=== PATIENT | female | born 1960 | race Caucasian/White ===

== ENCOUNTER → 2018-01-12 16:35 | Outpatient (CLI) | payer MEDICAID, SELFPAY ==
[2018-01-12 18:26] LABS: ALB/GLOB Ratio 0.7 RATIO (0.9-2.4); AST(SGOT) 14 U/L (15-37); Alanine Aminotransfer ALT/SGPT 22 U/L (13-56); Albumin, Serum 3.3 g/dL (3.2-5.0); Alkaline Phosphatase 112 U/L (45-117); Anion Gap 8 (5-15); BUN 18 mg/dL (7-18); BUN/Creat Ratio 21.7 RATIO (10-20); Calcium,Total 9.6 mg/dL (8.5-10.1); Chloride 100 mmol/L (98-107); Creatinine, Serum 0.83 mg/dL (0.55-1.02); EST Glomerular Filtration Rate 75 mL/min (>60); Est Glom Filt Rate - Afr Amer 91 mL/min (>60); Glucose 105 mg/dL (74-106); Potassium 3.9 mmol/L (3.5-5.1); Protein, Total 8.3 g/dL (6.4-8.2); Sodium Level 140 mmol/L (136-145)
[2018-01-12 18:35] LABS: Absolute Lymphocyte Count 2.73 X10^3/ul (0.83-4.51); Absolute Neutrophil Count 10.2 X10^3/uL (2.0-7.7); Basophil# 0.05 X10^3/uL; Basophil% 0.3 % (0-1); Eosinophil# 0.08 X10^3/uL; Eosinophils% 0.6 % (0-5); Hematocrit 37.6 % (37-47); Hemoglobin 11.6 g/dl (12.0-15.0); Lymphocyte # 2.73 X10^3/ul (4.0); Lymphocyte % 18.9 % (19-41); Mean Corp Hgb Conc 30.9 g/gl (32-36); Mean Corpuscular Hgb 26.4 pg (27.0-32.0); Mean Corpuscular Volume 85.5 fL (81-99); Monocyte# 1.21 X10^3/uL; Monocyte% 8.4 % (0-10); Neutrophil # 10.21 X10^3/uL (2.7-7.7); Neutrophil % 70.8 % (47-70); Platelet Count 726 K/mm3 (150-450); RBC Distribution Width CV 15.8 % (11.6-14.6); RBC Distribution Width SD 48.6 fl (35.1-43.9); White Blood Count 14.4 K/mm3 (4.4-11.0)
[2018-01-12 18:53] LABS: POSITIVE COUNT NO; POSITIVE DIFFERENTIAL NO; POSITIVE MORPHOLOGY NO
[2018-01-12 19:30] LABS: Erythrocyte Sedimentation Rate 81 mm/hr (0-30)
== END ==
PROVIDERS: Family Provider Family Medicine; PCP Family Medicine
DX: M05.9 Rheumatoid arthritis with rheumatoid factor, unspecified (principal); Z79.52 Long term (current) use of systemic steroids; Z79.899 Other long term (current) drug therapy
CPT/HCPCS: 36415; 80053; 85025; 85652; 86140

== ENCOUNTER → 2018-04-18 15:57 | Outpatient (CLI) | payer MEDICAID, SELFPAY | PROVIDERS: Family Provider Family Medicine; PCP Family Medicine | DX: M05.9 Rheumatoid arthritis with rheumatoid factor, unspecified (principal); Z79.52 Long term (current) use of systemic steroids | CPT/HCPCS: 77080 ==

== ENCOUNTER 2018-05-19 04:48 | Observation (INO) | payer MEDICAID, SELFPAY ==
[2018-05-19] VITALS (14 sets, daily range): BP systolic 92–131; BP diastolic 63–80; PULSE 65–114; RESP 12–20; TEMP 36.8–37.1; O2SAT 94–98; BMI 36.0; BMI 36.2; BMI 36.3
--- NOTE | 2018-05-19 05:00 | RAD_ITS ---
STUDY: X-RAY CHEST REASON FOR EXAM: Female, 58 years old. Syncope TECHNIQUE: Frontal view COMPARISON: 08/03/2017 FINDINGS: The lungs are clear and expanded. There is no demonstrated pleural abnormality. Normal size heart. Normal mediastinum and taya. Normal visualized pulmonary arteries. Normal visualized aortic arch and descending thoracic aorta. Normal visualized thoracic spine. Normal visualized ribs, clavicles, and shoulders. There is no demonstrated abnormality of the visualized soft tissue structures of the upper abdomen. RAD/Chest 1 View (Portable) IMPRESSION: Normal x-ray examination of the chest. Electronically Signed: Jamir Weller MD at 6:18 EDT , Service support ,
--- NOTE | 2018-05-19 05:00 | RAD_ITS ---
STUDY: X-RAY - RIGHT ANKLE REASON FOR EXAM: Female, 58 years old. Pain TECHNIQUE: 3 view(s) of the ankle. COMPARISON: None. FINDINGS: There is a nondisplaced fracture of the distal fibula. The tibia is intact. Talus and calcaneus are intact. There is NO joint dislocation. There is generalized osteopenia. There is lateral soft tissue swelling. RAD/Ankle min 3 Views IMPRESSION: Nondisplaced fracture of the distal fibula. Electronically Signed: Jamir Weller MD at 6:15 EDT , Service support ,
--- NOTE | 2018-05-19 05:00 | EKG12_ITS ---
Test Reason : SYNCOPE Blood Pressure : / mmHG Vent. Rate : 094 BPM Atrial Rate : 094 BPM P-R Int : 134 ms QRS Dur : 076 ms QT Int : 364 ms P-R-T Axes : 029 010 062 degrees QTc Int : 455 ms Normal sinus rhythm Nonspecific ST and T wave abnormality Abnormal ECG Confirmed by RIVKA CRUZ, AIME ([id number]), science editor AMAN GIRALDO ([id number] on 05/22/2018 3:09:02 PM Referred By: DONAVAN Confirmed By:AIME TINEO MD
--- NOTE | 2018-05-19 05:00 | CT_ITS ---
STUDY: CT BRAIN WITHOUT CONTRAST REASON FOR EXAM: Female, 58 years old. Syncope RADIATION DOSAGE (If Supplied By Facility): CTDIvol = ( 44.99 ) mGy, DLP = ( 796.11 ) mGycm TECHNIQUE: Transaxial CT imaging of the brain was performed without administration of intravenous contrast material. Individualized dose optimization techniques were used for this CT. COMPARISON: None. FINDINGS: Normal soft tissue structures. Normal calvarium. Normal size ventricles and extra-axial spaces for the patient's age. Normal white matter tracts of the cerebral hemispheres. Normal basal ganglia and thalami. Normal brainstem. Normal cerebellum. There is no intracranial hemorrhage. There are no findings of an acute ischemic infarction. Normal visualized paranasal sinuses. CT/Brain/Head without Contrast IMPRESSION: Normal unenhanced CT scan of the brain. Electronically Signed: Jamir Weller MD at 7:18 EDT , Service support ,
[2018-05-19] MEDS: Ondansetron 4 MG/2 ML Vial IV (05:28)
[2018-05-19] MEDS: 0.9% Normal Saline 1,000 ML 1000 ML IV (05:28)
[2018-05-19] MEDS: Morphine 4 MG/ML Syringe IV (05:28)
[2018-05-19 05:52] LABS: BUN 17 mg/dL (7-18); Creatinine, Serum 1.03 mg/dL (0.55-1.02); Estimated Creatinine Clearance 46.51 ml/min; Glucose 129 mg/dL (74-106)
[2018-05-19 05:53] LABS: Anion Gap 12 (5-15); BUN/Creat Ratio 16.5 RATIO (10-20); Calcium,Total 9.2 mg/dL (8.5-10.1); Chloride 103 mmol/L (98-107); EST Glomerular Filtration Rate 58 mL/min (>60); Est Glom Filt Rate - Afr Amer 71 mL/min (>60); Potassium 3.9 mmol/L (3.5-5.1); Sodium Level 137 mmol/L (136-145)
[2018-05-19 06:23] LABS: Absolute Lymphocyte Count 3.34 X10^3/ul (0.83-4.51); Absolute Neutrophil Count 13.1 X10^3/uL (2.0-7.7); Basophil# 0.05 X10^3/uL; Basophil% 0.3 % (0-1); Eosinophil# 0.27 X10^3/uL; Eosinophils% 1.5 % (0-5); Hematocrit 36.3 % (37-47); Lymphocyte # 3.34 X10^3/ul (4.0); Lymphocyte % 18.6 % (19-41); Mean Corp Hgb Conc 30.3 g/gl (32-36); Mean Corpuscular Hgb 25.3 pg (27.0-32.0); Mean Corpuscular Volume 83.4 fL (81-99); Mean Platelet Vol. 8.7 fl (6.2-12.0); Monocyte# 1.08 X10^3/uL; Neutrophil # 13.06 X10^3/uL (2.7-7.7); Neutrophil % 72.8 % (47-70); Platelet Count 506 K/mm3 (150-450); RBC Distribution Width CV 15.6 % (11.6-14.6); RBC Distribution Width SD 47.8 fl (35.1-43.9); Red Blood Count 4.35 M/mm3 (4.2-5.4); White Blood Count 17.9 K/mm3 (4.4-11.0)
[2018-05-19 06:27] LABS: Differential Indicated SCAN CRITERIA MET; POSITIVE COUNT NO; POSITIVE DIFFERENTIAL NO; POSITIVE MORPHOLOGY YES
--- NOTE | 2018-05-19 06:54 | NURSING ---
HOSPITALIST RETURNED CALL.
--- NOTE | 2018-05-19 07:14 | NURSING ---
DR WESTON GO
--- NOTE | 2018-05-19 07:17 | NURSING ---
PCU SYNCOPE KORAM
--- NOTE | 2018-05-19 07:27 | NURSING ---
DR ONTIVEROS IN ER
--- NOTE | 2018-05-19 07:31 | ED.DCSUM_ITS ---
- ER Visit Summary Date of Service: 05/19/18 Chief Complaint: Syncope History of Present Illness: The patient is a 58 F with a syncopal episode. This occurred suddenly around 4 AM today. The patient has a history of rheumatoid arthritis and deconditioning. She has not been feeling well and she has not been taking her medications. Yesterday she slept most of the day. She slept poorly last night and woke up early. She got up, stood up and believe she passed out. She woke up on the floor. Reports right breast pain and right ankle pain. She also had some nausea and vomiting. Denies any history of this in the past. Denies any chest pain or shortness of breath. Denies headache, vision changes, focal weakness, focal numbness, or speech changes. Physical Examination: Heart rate 114. Otherwise vitals normal. Afebrile. Alert and oriented. No acute distress. Head and neck atraumatic. HEENT exam unremarkable. Neck is nontender. Heart regular. Lungs clear bilaterally. Abdomen soft and nontender. Extremities unremarkable except for right ankle tenderness at the lateral malleolus. She is neurovascular intact distally. No focal or lateralizing neurologic abnormalities grossly. Cranial nerves grossly intact. Skin slightly pale Test Results: EKG showed sinus rhythm at a rate of 94. Nonspecific ST and T- wave changes. White count 17.9, hemoglobin 11, platelets 506. Glucose 129 and creatinine 1.03. Troponin normal. Chest x-ray was normal. CT brain was normal. Ankle x-ray showed a right distal fibula fracture. Emergency Department Course and Treatment: Patient seen immediately. Placed on a monitor. Orthostatics were negative, but her blood pressures were around 99 systolic. She received IV fluids. She also received morphine and Zofran for her symptoms. White count is elevated. She does take prednisone. She has a history of leukocytosis. Hemoglobin is stable. Platelets are elevated, but she has a history of this. Troponin and EKG showed no acute abnormalities. He does have some nonspecific ST and T-wave changes. Nothing to explain syncope. No dysrhythmias. Ankle fracture was splinted by me. She tolerated this well. Neurovascularly intact distally afterwards. Patient continues to have borderline hypotension. She feels unwell. I do not have an explanation for her syncope. She will have even more trouble getting around since she will be nonweightbearing on the right lower leg. I asked the hospitalist to admit for inpatient care. Treatment Plan: As above Disposition: Admission Impression: 1. Syncope 2. Right distal fibula fracture This note was generated with [employer] dictation software. It may contain incorrect words, spelling, and punctuation that were not noted in review of the chart prior to signing ED Disposition - Plan for ED Patient: Chief Complaint: Syncope Referrals: Duane Odom MD [Primary Care Provider] -
[2018-05-19] MEDS: 0.9% NaCl Peripheral Flush Adult/Peds IV ×2 (09:17→10:17)
[2018-05-19] MEDS: 0.9% Normal Saline 1,000 ML 125 ML IV ×2 (09:17→19:23)
[2018-05-19] MEDS: Ketorolac 15 MG/ML Vial IV (10:16)
[2018-05-19] MEDS: Enoxaparin 40 MG/0.4 ML Syringe SC (10:19)
[2018-05-19] MEDS: predniSONE 10 MG Tablet PO (10:19)
[2018-05-19] MEDS: Metoprolol Tartrate 25 MG Tablet PO ×2 (10:19→22:00)
[2018-05-19] MEDS: Aspirin 81 MG TAB.CHEW PO (10:19)
--- NOTE | 2018-05-19 10:26 | MRI_ITS ---
STUDY: MRI BRAIN WITHOUT CONTRAST REASON FOR EXAM: Female, 58 years old. Syncope X 2 TODAY TECHNIQUE: Standardized multiplanar fat and water weighted pulse sequences were obtained. COMPARISON: May 19, 2018 FINDINGS: Normal size of the ventricles and extra-axial spaces for the patient's age. There are a limited number of small white matter hyperintensities, distributed throughout the deep white matter tracts of the cerebral hemispheres, consistent with minimal chronic white matter ischemic changes. Normal bilateral basal ganglia. Normal thalami. There is no extra-axial fluid accumulation. Normal flow voids within the major intracranial circulation suggesting patency by spin echo criteria. Normal sella turcica, pituitary gland, infundibular stalk, optic chiasm and hypothalamus. Normal tectal plate and pineal gland. Normal midbrain, david and medulla. Normal cerebellum. Normal basal cisterns. Normal bilateral temporal bones. Normal bilateral internal auditory canals. No demonstrated orbital abnormality, within the constraints of a routine brain study. There is mild mucosal thickening of the ethmoid sinus. . Normal calvarium and skull base. Normal visualized soft tissue structures. Normal visualized upper cervical spine. MRI/Brain without Contrast IMPRESSION: There is minimal small vessel ischemic white matter disease. There is mild paranasal sinusitis. Electronically Signed: Beth Martin MD at 14:25 EDT , Service support ,
--- NOTE | 2018-05-19 10:28 | HP.PCM_ITS ---
Problem List (1) Syncope Status: Acute Qualifiers: Syncope type: unspecified Qualified Code(s): R55 - Syncope and collapse History of Present Illness Date of Admission: 05/19/18 Chief Complaint: syncope The patient is a 58 year old F with a history of rheumatoid arthritis and hypertension. She presents to the ED early this morning with a complaint of a syncopal episode. According to patient she recently had a flareup of her rheumatoid arthritis and so had been feeling very weak and lethargic. She got up around 4 AM today to go to the kitchen and felt very weak and as he was heading to a chair she blacked out she does not know how long she was out for Sheila just remembers coming round and calling for her daughter to help her. She denied any antecedent lightheadedness or dizziness no palpitations. When the daughter came to help her out patient states that she blacked out again and had generalized jerking movements according to her daughter. She denies any history of seizure disorder and denies any urinary or fecal incontinence or tongue biting. She denies any post syncopal confusion and lethargy. She therefore came into the ED. Vitals in the ED showed heart rate of 114 vitals otherwise normal. EKG showed sinus rhythm with rate of [address] and T-wave changes. White cell count was elevated at 17.9 but this may be due to the fact the patient is on prednisone. She was started on IV fluids and received morphine and Zofran. CT head done was negative. Troponins were also negative. Ankle x-ray showed a right distal fibula fracture was placed in a splint in the ED.. She has been admitted to be managed for syncopal episode [] Past Medical History Allergies No Known Allergies Allergy (Verified 05/19/18 04:49) Home Medications: Ambulatory Orders Medication Instructions Recorded Aspirin [Aspirin, Baby] 81 mg PO DAILY@0800 05/19/18 Metoprolol Tartrate 25 mg PO BID 05/19/18 Mirtazapine [Remeron] 30 mg PO QHS PRN 05/19/18 Omeprazole [Prilosec] 20 mg PO DAILY 05/19/18 Prednisone 10 mg PO DAILY 05/19/18 Surgical History: - - Stents placed due to acute MA in 2016 in [place]. 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 Denies: Chills, Fever Eyes: Denies: Blurred vision HEENT: Denies: Head Aches, Sinus Congestion, Sinus Drainage Cardiovascular: Reports: Syncope. Denies: Chest Pain, Chest Pressure, Chest Tightness, Heaviness, Light Headedness, Orthopnea, Palpitations, Paroxysmal Noc. Dyspnea Respiratory: Denies: Cough, Shortness of Breath, Shortness of breath at rest, Sputum production Gastrointestinal: Denies: Abdominal Pain, Nausea, Vomiting Genitourinary: Denies: Dysuria Musculoskeletal: Reports: - - right ankle pain. Denies: Joint Pain, Joint Tenderness Skin: Denies: Rash, Wounds Neurological: Denies: Numbness, Tingling, Focal weakness Psychiatric: Denies: Anxiety, Depression, Homicidal Ideations, Suicidal Ideations Hematologic/ Lymphatic: Denies: Easy Bruising, Easy Bleeding VTE Information - Inpt Only VTE Present on Admission: No VTE Mechan Device Prophylaxis: None VTE Pharm Prophylaxis ordered?: Yes Patient Problems: Active and Suspected Problems Syncope (Acute) - Physical Exam General: Alert, Oriented x3, Cooperative, No apparent distress HEENT: Atraumatic, PERRLA, EOMI, Normocephalic Oral: Moist Mucosa Neck: Supple, No JVD, Negative Carotid Bruits Lungs: Clear to auscultation, Normal air movement, No rhonchi, No wheeze, No rales Cardiovascular: Regular rate, Regular Rhythm, Normal S1, Normal S2, No murmurs Abdomen: Bowel Sounds Present, Soft, Non Tender, Non-Distended, No Hepato- splenomegaly Extremities: No clubbing, No cyanosis, No edema, Capillary Refill Less than 3 Seconds Skin: No rashes, No breakdown Musculoskeletal: - - RLE in splint. Neurological: Cranial nerves II-XII grossly intact, Neuro grossly intact Psych/Mental Status: Normal Affect, Appropriate, Alert and oriented to time, place, person, mood and affect Vital Signs Temp Pulse Resp BP Pulse Ox 98.5 F 104 H 16 131/72 H 98 05/19/18 08:00 05/19/18 10:19 05/19/18 08:00 05/19/18 08:00 05/19/18 08:00 Oxygen Delivery Method Room Air Weight: 198 lb 3.129 oz Body Mass Index (BMI) 36.2 Laboratory Tests Past 24 Hrs 05/19/18 09:10 Troponin I < 0.015 Diagnostic Data Ankle X-Ray 05/19/18 05:00 IMPRESSION: Nondisplaced fracture of the distal fibula. Electronically Signed: Jamir Weller MD at 6:15 EDT , Service support , Brain CT 05/19/18 05:00 IMPRESSION: Normal unenhanced CT scan of the brain. Electronically Signed: Jamir Weller MD at 7:18 EDT , Service support , Chest X-Ray 05/19/18 05:00 IMPRESSION: Normal x-ray examination of the chest. Electronically Signed: Jamir Weller MD at 6:18 EDT , Service support , Laboratory Tests 05/19/18 05/19/18 05/19/18 05:25 05:55 09:10 WBC 17.9 H RBC 4.35 Hgb 11.0 L Hct 36.3 L MCV 83.4 MCH 25.3 L MCHC 30.3 L RDW 15.6 H RDW Differential 47.8 H Plt Count 506 H MPV 8.7 Immature Gran % (Auto) 0.800 Neut % (Auto) 72.8 H Lymph % (Auto) 18.6 L [place] % (Auto) 6.0 Eos % (Auto) 1.5 Baso % (Auto) 0.3 Absolute Neuts (auto) 13.1 H Absolute Lymphs (auto) 3.34 Total Counted Not Reportable Sodium 137 Potassium 3.9 Chloride 103 Carbon Dioxide 22.0 Anion Gap 12 BUN 17 Creatinine 1.03 H Estim Creat Clear Calc 46.51 Est GFR (MDRD) Af Amer 71 Est GFR (MDRD) Non-Af 58 L BUN/Creatinine Ratio 16.5 Glucose 129 H Calcium 9.2 Troponin I < 0.015 < 0.015 Assessment/Plan All Active Problems Syncope (Acute) 58 year female with a history of CAD status post stents, rheumatoid arthritis and hypertension presenting with a syncopal episode. 1. 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 Therefore cannot rule out a seizure as cause of syncope. * Does not have a history of seizures. * EKG showed nonspecific acute ST changes. Initial troponin was negative. * Admit to PCU with telemetry * neurology consult. CT head was negative for any acute intracranial pathology * Order MRI of the brain without contrast per neurology * Orthostatics was negative the patient was borderline hypotensive with systolic blood pressure in the 90s; will hydrate with IV fluids and monitor * Fall precautions * PT OT consulted * 2. Hypertension: * on metoprolol. BP was in the 90s systolic in the ED but at 130 systolic range of metoprolol. * We will continue to monitor. * 3.Rheumatoid arthritis * only on prednisone;says she has an ppointment to follow up wit her neurologist soon. * 4. Nondisplaced fracture of the right fibula * stable. Placed in splint by ED * tyelenol for pain * PT/OT consulted * fall precautions * 5. CAD s/p stents: had MA in [place] in 2016; says she had stents placed. On aspirin, but not on plavix. cannot say if she was on it and when she stopped. To followup with her PCP and her pcas on dc. GI prophylaxis: will start famotidine in light of her chronic steroid use DVT prophylaxis: PPI Code status: Full code * Counseled extensively about different types of CODE STATUS. Patient counseled about different between full code, DNR CCA and DNR CCA patient elects to be full code * This note was generated with [employer] dictation software. It may contain incorrect words, spelling, and punctuation that were not noted in checking the note before signing. Code Visit Inpatient E&M: 51058 Init Hosp L3 Procedures: 34758 Advncd Care Plan 30 Min
--- NOTE | 2018-05-19 11:19 | PCM.CONS.GEN ---
Problem List (1) Syncope Status: Acute Qualifiers: Syncope type: unspecified Qualified Code(s): R55 - Syncope and collapse Reason for Consult Date of Consultation: 05/19/18 Reason for Consultation: Syncope History of Present Illness: The patient is a 58 year old CF with PMH HTN, RA, CAD s/p stents admitted with syncope. Per patient she had RA flare yesterday and she was in the bed the whole day and slept, had not eaten much, she woke about 3:30 AM this morning (05/19/18), made coffee, fed her cat, bend over, became diaphoretic, dizzy and the next thing she remembers was walking up on the floor, denies any tongue bite, urinary incontinence or post event confusion, called for help, later when he daughter came, she fainted again, and she was told she was jerking at that time, per patient she may have fainted for few seconds to minute and again denies any tongue bite or urinary incontinence. Denies any BLOOM, visual disturbances, chest pain, fever, focal motor weakness or sensory loss. Per patient her BP medications were recently decreased by her primary care. She did complain of right ankle pain and was found to have nondisplaced fracture of right distal fibula. [] Past Medical History Allergies No Known Allergies Allergy (Verified 05/19/18 04:49) Home Medications: Ambulatory Orders Medication Instructions Recorded Aspirin [Aspirin, Baby] 81 mg PO DAILY@0800 05/19/18 Metoprolol Tartrate 25 mg PO BID 05/19/18 Prednisone 10 mg PO DAILY 05/19/18 Lives: With Family Smoking Status: Current every day smoker - smokes about 4 cigarettes/day Alcohol: None Drugs: None Review of Systems Constitutional: Reports: - - complete ROS negative except as documented in HPI Patient Problems: Active and Suspected Problems Syncope (Acute) - Physical Exam General: Alert HEENT: Normocephalic Neck: Supple Lungs: Normal air movement Cardiovascular: Normal S1, Normal S2 Abdomen: Bowel Sounds Present Extremities: No cyanosis Neurological: - - consious, alert, AoAx3, CN 2-12 grossly intact, power 5/5 all 4 extremities, no sensory loss, no cerebellar signs, Reflexes + B/L B/S/T/K/A, gait deferred. Psych/Mental Status: Normal Affect Vital Signs Temp Pulse Resp BP Pulse Ox 98.5 F 104 H 16 131/72 H 98 05/19/18 08:00 05/19/18 10:19 05/19/18 08:00 05/19/18 08:00 05/19/18 08:00 Oxygen Delivery Method Room Air Weight: 89.9 kg Body Mass Index (BMI) 36.2 Laboratory Tests Past 24 Hrs 05/19/18 09:10 Troponin I < 0.015 Assessment/Plan All Active Problems Syncope (Acute) The patient is a 58 year old CF with PMH HTN, RA, CAD s/p stents admitted with syncope. Per patient she had RA flare yesterday and she was in the bed the whole day and slept, had not eaten much, she woke about 3:30 AM this morning (05/19/18), made coffee, fed her cat, bend over, became diaphoretic, dizzy and the next thing she remembers was walking up on the floor, denies any tongue bite, urinary incontinence or post event confusion, called for help, later when he daughter came, she fainted again, and she was told she was jerking at that time, per patient she may have fainted for few seconds to minute and again denies any tongue bite or urinary incontinence. Denies any BLOOM, visual disturbances, chest pain, fever, focal motor weakness or sensory loss. Per patient her BP medications were recently decreased by her primary care. She did complain of right ankle pain and was found to have nondisplaced fracture of right distal fibula. Impression Likely Convulsive Syncope-? cause Plan -Check MRI brain w/o contrast -Check EEG -Check TTE -Recommend 30 day event recorder -Labs reviewed -Avoid tramadol -Seizure and fall precautions -Further management of medical management per primary team. -Is on Steroids for RA, presents with ankle fracture, further evaluation and management of osteoporosis per primary team -GI/DVT prophylaxis -Please call with questions if any -Thank you for allowing us to participate in patient's care and management I spent 60 minutes taking history, doing physical examination, reviewing medical records, coordinating care and counseling the patient. Code Visit Inpatient E&M: 96375 Init Hosp L3
--- NOTE | 2018-05-19 11:24 | CON.PCM_ITS ---
Problem List (1) Syncope Status: Acute Qualifiers: Syncope type: unspecified Qualified Code(s): R55 - Syncope and collapse Reason for Consult Date of Consultation: 05/19/18 Reason for Consultation: Syncope History of Present Illness: The patient is a 58 year old CF with PMH HTN, RA, CAD s/p stents admitted with syncope. Per patient she had RA flare yesterday and she was in the bed the whole day and slept, had not eaten much, she woke about 3:30 AM this morning (), made coffee, fed her cat, bend over, became diaphoretic, dizzy and the next thing she remembers was walking up on the floor, denies any tongue bite, urinary incontinence or post event confusion, called for help, later when he daughter came, she fainted again, and she was told she was jerking at that time , per patient she may have fainted for few seconds to minute and again denies any tongue bite or urinary incontinence. Denies any BLOOM, visual disturbances, chest pain, fever, focal motor weakness or sensory loss. Per patient her BP medications were recently decreased by her primary care. She did complain of right ankle pain and was found to have nondisplaced fracture of right distal fibula. [] Past Medical History Allergies No Known Allergies Allergy (Verified 05/19/18 04:49) Home Medications: Ambulatory Orders Medication Instructions Recorded Aspirin [Aspirin, Baby] 81 mg PO DAILY@0800 05/19/18 Metoprolol Tartrate 25 mg PO BID 05/19/18 Prednisone 10 mg PO DAILY 05/19/18 Lives: With Family Smoking Status: Current every day smoker - smokes about 4 cigarettes/day Alcohol: None Drugs: None Review of Systems Constitutional: Reports: - - complete ROS negative except as documented in HPI Patient Problems: Active and Suspected Problems Syncope (Acute) - Physical Exam General: Alert HEENT: Normocephalic Neck: Supple Lungs: Normal air movement Cardiovascular: Normal S1, Normal S2 Abdomen: Bowel Sounds Present Extremities: No cyanosis Neurological: - - consious, alert, AoAx3, CN 2-12 grossly intact, power 5/5 all 4 extremities, no sensory loss, no cerebellar signs, Reflexes + B/L B/S/T/K/A, gait deferred. Psych/Mental Status: Normal Affect Vital Signs Temp Pulse Resp BP Pulse Ox 98.5 F 104 H 16 131/72 H 98 05/19/18 08:00 05/19/18 10:19 05/19/18 08:00 05/19/18 08:00 05/19/18 08:00 Oxygen Delivery Method Room Air Weight: 89.9 kg Body Mass Index (BMI) 36.2 Laboratory Tests Past 24 Hrs 05/19/18 09:10 Troponin I < 0.015 Assessment/Plan All Active Problems Syncope (Acute) The patient is a 58 year old CF with PMH HTN, RA, CAD s/p stents admitted with syncope. Per patient she had RA flare yesterday and she was in the bed the whole day and slept, had not eaten much, she woke about 3:30 AM this morning (), made coffee, fed her cat, bend over, became diaphoretic, dizzy and the next thing she remembers was walking up on the floor, denies any tongue bite, urinary incontinence or post event confusion, called for help, later when he daughter came, she fainted again, and she was told she was jerking at that time , per patient she may have fainted for few seconds to minute and again denies any tongue bite or urinary incontinence. Denies any BLOOM, visual disturbances, chest pain, fever, focal motor weakness or sensory loss. Per patient her BP medications were recently decreased by her primary care. She did complain of right ankle pain and was found to have nondisplaced fracture of right distal fibula. Impression Likely Convulsive Syncope-? cause Plan -Check MRI brain w/o contrast -Check EEG -Check TTE -Recommend 30 day event recorder -Labs reviewed -Avoid tramadol -Seizure and fall precautions -Further management of medical management per primary team. -Is on Steroids for RA, presents with ankle fracture, further evaluation and management of osteoporosis per primary team -GI/DVT prophylaxis -Please call with questions if any -Thank you for allowing us to participate in patient's care and management I spent 60 minutes taking history, doing physical examination, reviewing medical records, coordinating care and counseling the patient. Code Visit Inpatient E&M: 74753 Init Hosp L3
--- NOTE | 2018-05-19 12:01 | CASEMGMT ---
Face to Face with patient for initial transition planning/care coordination assessment. RN HENRIETTA introduced self and role at [facility], pt voices understanding and consents to assessment at this time. Pt is lying in bed in no distress at this time. Pt is A/Ox4 at this time and answers all questions appropriately at this time. Care providers, pharmacy, and demographics verified. See attached link. Pt voices no further concerns/needs at this time. Advised pt to ask for CM if any further questions/concerns/needs arise, voices understanding. CM to follow for any further discharge planning/needs. PLAN: [place]
--- NOTE | 2018-05-19 14:26 | EEG ---
- Electroencephalogram Date of service 05/19/2018 History EEG is being done in this 58 yr F to rule out seizures EEG Description: This is an 18 channel EEG with 10-20 lead placement system. Bipolar montages, Referential and Circumferential montages were reviewed. Photic stimulation and Hyperventilation were performed. The posterior dominant rhythm is 8 HZ synchronous, symmetric, reacting to eye opening and closing. Photo stimulation elicited normal driving response but no abnormal photoparoxysmal response, Hyperventilation did not elicit any abnormal photoparoxysmal response. Sleep was identified. There is no abnormal background slowing noted. There was no epileptiform discharges or electrographic seizures noted during this recording. EKG artefact noted during the record. High amplitude waves noted during the record. EEG Interpretation This is a normal awake and asleep EEG. There is no epileptiform discharges or electrographic seizures noted during the record.
--- NOTE | 2018-05-19 15:51 | ECHOD_ITS ---
Reason For Study: Palpitations Procedure This was a 2D Doppler, Color Flow transthoracic echocardiogram. Exam performed portable in patient room. Left Ventricle Normal LV size. Left ventricular systolic function is normal. The estimated ejection fraction is 60 %. Stage 1 diastolic dysfunction. No regional wall motion abnormalities noted. Right Ventricle Normal RV size. Normal systolic function. Atria Normal left atrium. Normal right atrium. Mitral Valve Normal mitral valve. Trivial eccentric mitral valve insufficiency. Tricuspid Valve Normal tricuspid valve. Aortic Valve Normal aortic valve. Pulmonic Valve Normal pulmonic valve. Great Vessels Normal aortic root. The pulmonary artery is normal size. Normal inferior vena cava. Pericardium/Pleural No pericardial effusion. MMode/2D Measurements & Calculations LVIDd: 4.3 cm IVSd: 0.91 cm Ao root diam: 2.9 cm LVIDs: 2.5 cm LVPWd: 1.2 cm LA dimension: 3.2 cm RVDd: 2.9 cm FS: 42.1 % LAV(MOD-bp): 54.0 ml LA A4 area: 15.8 cm2 RA A4 area: 10.1 cm2 LAV(MOD-bp) Indexed: 28.4 ml/m2 LAV(MOD-sp2): 75.4 ml LAV(MOD-sp4): 37.8 ml Doppler Measurements & Calculations MV E max arian: 75.8 cm/sec Lat Peak E' Arian: 8.5 cm/sec Med Peak E' Arian: 6.7 cm/sec MV A max arian: 104.2 cm/sec E/E' lat: 9.0 E/E' med: 11.3 MV E/A: 0.73 Ao V2 max: 169.0 cm/sec LV V1 max: 118.3 cm/sec PA V2 max: 101.5 cm/sec Ao max P.4 mmHg LV V1 max P.6 mmHg Interpretation Summary Normal LV size. Left ventricular systolic function is normal. The estimated ejection fraction is 60 %. Stage 1 diastolic dysfunction. Structurally normal valves. Ordering Physician: Sally Sellers Referring Physician: Dimitry Odom MD Performed By: Jo Ann Stanton RDCS
[2018-05-19] MEDS: Acetaminophen 325 MG Tablet 650 MG PO ×2 (17:34→23:46)
[2018-05-19] MEDS: Mirtazapine 30 MG Tablet PO (22:04)
[2018-05-20] VITALS (11 sets, daily range): BP systolic 142–163; BP diastolic 76–92; PULSE 39–80; RESP 15–20; TEMP 36.8–37.2; O2SAT 94–99
[2018-05-20 06:39] LABS: Absolute Lymphocyte Count 2.69 X10^3/ul (0.83-4.51); Absolute Neutrophil Count 5.2 X10^3/uL (2.0-7.7); Basophil# 0.04 X10^3/uL; Basophil% 0.4 % (0-1); Eosinophil# 0.21 X10^3/uL; Eosinophils% 2.3 % (0-5); Hematocrit 30.2 % (37-47); Hemoglobin 9.1 g/dl (12.0-15.0); Lymphocyte # 2.69 X10^3/ul (4.0); Lymphocyte % 29.8 % (19-41); Mean Corp Hgb Conc 30.1 g/gl (32-36); Mean Corpuscular Hgb 25.7 pg (27.0-32.0); Mean Corpuscular Volume 85.3 fL (81-99); Mean Platelet Vol. 9.5 fl (6.2-12.0); Monocyte# 0.81 X10^3/uL; Neutrophil # 5.19 X10^3/uL (2.7-7.7); Neutrophil % 57.6 % (47-70); Platelet Count 435 K/mm3 (150-450); RBC Distribution Width CV 15.4 % (11.6-14.6); RBC Distribution Width SD 46.4 fl (35.1-43.9); Red Blood Count 3.54 M/mm3 (4.2-5.4)
[2018-05-20 06:47] LABS: POSITIVE COUNT NO; POSITIVE DIFFERENTIAL NO; POSITIVE MORPHOLOGY NO
[2018-05-20] MEDS: Acetaminophen 325 MG Tablet 650 MG PO ×2 (06:49→13:34)
[2018-05-20 07:01] LABS: BUN 17 mg/dL (7-18); Creatinine, Serum 0.69 mg/dL (0.55-1.02); Glucose 81 mg/dL (74-106)
[2018-05-20 07:02] LABS: Anion Gap 8 (5-15); BUN/Creat Ratio 24.6 RATIO (10-20); Calcium,Total 8.5 mg/dL (8.5-10.1); Chloride 111 mmol/L (98-107); EST Glomerular Filtration Rate 92 mL/min (>60); Est Glom Filt Rate - Afr Amer 112 mL/min (>60); Estimated Creatinine Clearance 69.43 ml/min; Potassium 3.7 mmol/L (3.5-5.1); Sodium Level 147 mmol/L (136-145)
[2018-05-20] MEDS: Aspirin 81 MG TAB.CHEW PO (10:10)
[2018-05-20] MEDS: predniSONE 10 MG Tablet PO (10:10)
[2018-05-20] MEDS: Metoprolol Tartrate 25 MG Tablet PO (10:10)
[2018-05-20] MEDS: Enoxaparin 40 MG/0.4 ML Syringe SC (10:11)
[2018-05-20] MEDS: Pantoprazole Sodium 20 MG Tablet PO (10:11)
--- NOTE | 2018-05-20 15:10 | DCINST_ITS ---
- Discharge Diagnoses Current Active Problems: Current Active and Chronic Problems Syncope (Acute) You will use the following diet at home:: Cardiac Discharge Activity: Return to Normal Activity Call your doctor if you observe: Shortness of breath, Dizziness, Fainting spells , Chest pain Allergies/Adverse Reactions: Allergies No Known Allergies Allergy (Verified 05/19/18 04:49) Medications to take at Discharge Aspirin [Aspirin, Baby] 81 mg PO DAILY@0800 05/19/18 Metoprolol Tartrate 25 mg PO BID 05/19/18 Mirtazapine [Remeron] 30 mg PO QHS PRN 05/19/18 Omeprazole [Prilosec] 20 mg PO DAILY 05/19/18 Prednisone 10 mg PO DAILY 05/19/18 Oxycodone [Oxyir] 5 mg PO Q4H PRN PRN 2 Days #10 tablet 05/20/18 The following prescriptions were given: Oxycodone [Oxyir] 5 mg PO Q4H PRN PRN 2 Days #10 tablet PRN Reason: Pain Primary Care Physician: Duane Odom MD [Primary Care Provider] - Please follow up with your Primary Care Physician in: 3-5 Days Test Results: Test results from this visit will be discussed in further detail at your follow- up appointment, if applicable. Please Follow Up With: [facility] - [phone] When: Call tuesday for appointment Please Follow Up With: Isaac Hinton MD When: As needed Proposed Discharge Date: 05/20/18
--- NOTE | 2018-05-20 15:11 | PCM.DC.SUM ---
<Malathi Donaldson - Last Filed: 05/20/18 15:24> Discharge Date and Diagnosis Date of Admission: 05/19/18 Date of Discharge: 05/20/18 - Primary Discharge Diagnosis Active and Suspected Problems 1. Syncopal episode, unclear etiology 2. Acute kidney injury 3. Nondisplaced fracture of the right fibula 4. Hypertension 5. Rheumatoid arthritis 6. CAD status post stents 7. GERD Hospital Course and Treatment Imaging Results: Diagnostic Data Ankle X-Ray 05/19/18 05:00 IMPRESSION: Nondisplaced fracture of the distal fibula. Electronically Signed: Jamir Weller MD at 6:15 EDT , Service support , Brain CT 05/19/18 05:00 IMPRESSION: Normal unenhanced CT scan of the brain. Electronically Signed: Jamir Weller MD at 7:18 EDT , Service support , Chest X-Ray 05/19/18 05:00 IMPRESSION: Normal x-ray examination of the chest. Electronically Signed: Jamir Weller MD at 6:18 EDT , Service support , Brain MRI 05/19/18 10:26 IMPRESSION: There is minimal small vessel ischemic white matter disease. There is mild paranasal sinusitis. Electronically Signed: Beth Martin MD at 14:25 EDT cf, Service support , Dr. Hinton- Neurology Operations: None Procedures: 2-D Echocardiogram, Electroencephalogram Summary of Care Provided: The patient is a 58 year old F admitted 05/19/2018 due to syncopal episode. She has a past medical history of rheumatoid arthritis, CAD status post stents, GERD, hypertension. Syncopal episode with unclear etiology. Troponin negative. EKG without ST-T changes. No arrhythmia on telemetry. Echocardiogram showed an EF of 60%, stage I diastolic dysfunction, structurally normal valves. Orthostatic vitals negative. EEG unremarkable. Patient noted to have acute kidney injury which resolved with IV fluids. Suspect mild dehydration. Patient fell due to syncope prior to admission resulting in nondisplaced fracture of the right fibula. Placed in splint by ED. Patient will follow up with [facility] as outpatient. Discharged with OxyIR 5 mg every 4 hours as needed for pain. She was given only 2 days of as needed pain medication with plans for further follow-up with primary care physician and ortho. Patient will be discharged with 30 day event monitor to further assess for arrhythmia etiology of syncopal episode. Neurology evaluated during admission. If patient has recurrent episodes with reports of jerking movements, may follow-up with neurology for further evaluation. MRI of brain without acute process. Patient stable for discharge home with follow-up with primary care physician, orthopedics. Recommend initiation of osteoporosis protective regimen given long-term use of steroids by PCP. Also recommend referral to local cardiology given reported history of CAD. General: Alert, Oriented x3, Cooperative, No apparent distress HEENT: Atraumatic, PERRLA, EOMI, Normocephalic Oral: Moist Mucosa Neck: Supple, No JVD, Negative Carotid Bruits Lungs: Clear to auscultation, Normal air movement, No rhonchi, No wheeze, No rales Cardiovascular: Regular rate, Regular Rhythm, Normal S1, Normal S2, No murmurs Abdomen: Bowel Sounds Present, Soft, Non Tender, Non-Distended, No Hepato-splenomegaly Extremities: No clubbing, No cyanosis, No edema, Capillary Refill Less than 3 Seconds Skin: No rashes, No breakdown Musculoskeletal: Right lower extremity and splint Neurological: Cranial nerves II-XII grossly intact, Neuro grossly intact Psych/Mental Status: Normal Affect, Appropriate Patient seen exam prior to discharge. Physical assessment as noted above. Patient stable for discharge home with the follow-up recommendations as noted above. This patient was seen by COLT Genao under the supervision of Dr. Goldstein. Discharge Diet: Low fat/ Low Cholesterol Discharge Activity: Return to Normal Activity Call your doctor if you observe: Shortness of breath, Dizziness, Fainting spells, Chest pain Home Medications: Medications to take at Discharge Aspirin [Aspirin, Baby] 81 mg PO DAILY@0800 05/19/18 Metoprolol Tartrate 25 mg PO BID 05/19/18 Mirtazapine [Remeron] 30 mg PO QHS PRN 05/19/18 Omeprazole [Prilosec] 20 mg PO DAILY 05/19/18 Prednisone 10 mg PO DAILY 05/19/18 Oxycodone [Oxyir] 5 mg PO Q4H PRN PRN 2 Days #10 tablet 05/20/18 Following Prescrptions Were Given to Patient: Oxycodone [Oxyir] 5 mg PO Q4H PRN PRN 2 Days #10 tablet PRN Reason: Pain Other Amb Orders: 30-Day Event Recorder [[facility]] Time Frame: 2 Days, Location: None Selected Primary Care Physician: Duane Odom MD [Primary Care Provider] - Please follow up with your Primary Care Physician in: 3-5 Days Please Follow Up With: [facility] - [phone] When: Call tuesday for appointment Please Follow Up With: Isaac Hinton MD When: As needed Disposition: Home Minutes spent on discharge:: 35 Patient Condition:: Stable Medical Necessity - Tobacco Use Smoking Status: Current every day smoker Meaningful Use Info Meaningful Use Diagnoses (Choose all that apply): None applicable <Salvador Goldstein - Last Filed: 05/21/18 08:00> Hospital Course and Treatment Summary of Care Provided: The patient is a 58 year old F [] Discharge Summary Summary: Patient admitted for vasovagal syncope and suffered ankle fracture from fall Reviewed independently of REFIN[employer] OPERATOR [employer] and case discussed as well All work up negative Stable for discharge home
--- NOTE | 2018-05-20 15:23 | DS.PCM_ITS ---
<Malathi Donaldson - Last Filed: 05/20/18 15:24> Discharge Date and Diagnosis Date of Admission: 05/19/18 Date of Discharge: 05/20/18 - Primary Discharge Diagnosis Active and Suspected Problems 1. Syncopal episode, unclear etiology 2. Acute kidney injury 3. Nondisplaced fracture of the right fibula 4. Hypertension 5. Rheumatoid arthritis 6. CAD status post stents 7. GERD Hospital Course and Treatment Imaging Results: Diagnostic Data Ankle X-Ray 05/19/18 05:00 IMPRESSION: Nondisplaced fracture of the distal fibula. Electronically Signed: Jamir Weller MD at 6:15 EDT , Service support , Brain CT 05/19/18 05:00 IMPRESSION: Normal unenhanced CT scan of the brain. Electronically Signed: Jamir Weller MD at 7:18 EDT , Service support , Chest X-Ray 05/19/18 05:00 IMPRESSION: Normal x-ray examination of the chest. Electronically Signed: Jamir Weller MD at 6:18 EDT , Service support , Brain MRI 05/19/18 10:26 IMPRESSION: There is minimal small vessel ischemic white matter disease. There is mild paranasal sinusitis. Electronically Signed: Beth Martin MD at 14:25 EDT cf, Service support , Dr. Hinton- Neurology Operations: None Procedures: 2-D Echocardiogram, Electroencephalogram Summary of Care Provided: The patient is a 58 year old F admitted 05/19/2018 due to syncopal episode. She has a past medical history of rheumatoid arthritis, CAD status post stents, GERD , hypertension. Syncopal episode with unclear etiology. Troponin negative. EKG without ST-T changes. No arrhythmia on telemetry. Echocardiogram showed an EF of 60%, stage I diastolic dysfunction, structurally normal valves. Orthostatic vitals negative. EEG unremarkable. Patient noted to have acute kidney injury which resolved with IV fluids. Suspect mild dehydration. Patient fell due to syncope prior to admission resulting in nondisplaced fracture of the right fibula. Placed in splint by ED. Patient will follow up with [facility] as outpatient. Discharged with OxyIR 5 mg every 4 hours as needed for pain. She was given only 2 days of as needed pain medication with plans for further follow-up with primary care physician and ortho. Patient will be discharged with 30 day event monitor to further assess for arrhythmia etiology of syncopal episode. Neurology evaluated during admission. If patient has recurrent episodes with reports of jerking movements , may follow-up with neurology for further evaluation. MRI of brain without acute process. Patient stable for discharge home with follow-up with primary care physician, orthopedics. Recommend initiation of osteoporosis protective regimen given long-term use of steroids by PCP. Also recommend referral to local cardiology given reported history of CAD. General: Alert, Oriented x3, Cooperative, No apparent distress HEENT: Atraumatic, PERRLA, EOMI, Normocephalic Oral: Moist Mucosa Neck: Supple, No JVD, Negative Carotid Bruits Lungs: Clear to auscultation, Normal air movement, No rhonchi, No wheeze, No rales Cardiovascular: Regular rate, Regular Rhythm, Normal S1, Normal S2, No murmurs Abdomen: Bowel Sounds Present, Soft, Non Tender, Non-Distended, No Hepato- splenomegaly Extremities: No clubbing, No cyanosis, No edema, Capillary Refill Less than 3 Seconds Skin: No rashes, No breakdown Musculoskeletal: Right lower extremity and splint Neurological: Cranial nerves II-XII grossly intact, Neuro grossly intact Psych/Mental Status: Normal Affect, Appropriate Patient seen exam prior to discharge. Physical assessment as noted above. Patient stable for discharge home with the follow-up recommendations as noted above. This patient was seen by COLT Genao under the supervision of Dr. Goldstein. Discharge Diet: Low fat/ Low Cholesterol Discharge Activity: Return to Normal Activity Call your doctor if you observe: Shortness of breath, Dizziness, Fainting spells , Chest pain Home Medications: Medications to take at Discharge Aspirin [Aspirin, Baby] 81 mg PO DAILY@0800 05/19/18 Metoprolol Tartrate 25 mg PO BID 05/19/18 Mirtazapine [Remeron] 30 mg PO QHS PRN 05/19/18 Omeprazole [Prilosec] 20 mg PO DAILY 05/19/18 Prednisone 10 mg PO DAILY 05/19/18 Oxycodone [Oxyir] 5 mg PO Q4H PRN PRN 2 Days #10 tablet 05/20/18 Following Prescrptions Were Given to Patient: Oxycodone [Oxyir] 5 mg PO Q4H PRN PRN 2 Days #10 tablet PRN Reason: Pain Other Amb Orders: 30-Day Event Recorder [[facility]] Time Frame: 2 Days, Location: None Selected Primary Care Physician: Duane Odom MD [Primary Care Provider] - Please follow up with your Primary Care Physician in: 3-5 Days Please Follow Up With: [facility] - [phone] When: Call tuesday for appointment Please Follow Up With: Isaac Hinton MD When: As needed Disposition: Home Minutes spent on discharge:: 35 Patient Condition:: Stable Medical Necessity - Tobacco Use Smoking Status: Current every day smoker Meaningful Use Info Meaningful Use Diagnoses (Choose all that apply): None applicable <Salvador Goldstein - Last Filed: 05/21/18 08:00> Hospital Course and Treatment Summary of Care Provided: The patient is a 58 year old F [] Discharge Summary Summary: Patient admitted for vasovagal syncope and suffered ankle fracture from fall Reviewed independently of PADDING MACHINE OPERATOR and case discussed as well All work up negative Stable for discharge home
--- NOTE | 2018-05-20 16:00 | NURSING ---
Discussed warning signs of circulatory problems to RLE and to return to ED if symptoms develop. Discussed need for even monitor and to call hospital on Tuesday to schedule same. Patient informed of new pain medication and side effects of drug. Denies questions when asked.
== END 2018-05-20 17:50 | disposition home or self-care (01) ==
LOC: ED 05:03 → PCU 07:32
PROVIDERS: Admitting Provider Student in an Organized Health Care Education/Training Program; Emergency Provider Emergency Medicine; Family Provider Family Medicine; PCP Family Medicine; Visit Provider Internal Medicine
DX: R55 Syncope and collapse (principal); M06.9 Rheumatoid arthritis, unspecified; R11.2 Nausea with vomiting, unspecified; N17.9 Acute kidney failure, unspecified; I10 Essential (primary) hypertension; I25.10 Atherosclerotic heart disease of native coronary artery without angina pectoris; K21.9 Gastro-esophageal reflux disease without esophagitis; Z95.5 Presence of coronary angioplasty implant and graft; S82.831A Other fracture of upper and lower end of right fibula, initial encounter for closed fracture; W19.XXXA Unspecified fall, initial encounter; Y93.9 Activity, unspecified; Y92.9 Unspecified place or not applicable; Z79.82 Long term (current) use of aspirin; Z79.899 Other long term (current) drug therapy; Z79.52 Long term (current) use of systemic steroids; F17.200 Nicotine dependence, unspecified, uncomplicated
CPT/HCPCS: 29515; 36415; 70450; 70551; 71045; 73610; 80048; 84484; 85025; 93005; 93306; 95819; 96361; 96372; 96374; 96375; 99218; 99285; J7030; A4216; G0378; J2405

== ENCOUNTER → 2018-06-01 11:52 | Outpatient (CLI) | payer MEDICAID, SELFPAY ==
--- NOTE | 2018-06-01 11:58 | RAD_ITS ---
STUDY: X-RAY - RIGHT ANKLE REASON FOR EXAM: Female, 58 years old. Pain and swelling TECHNIQUE: 3 view(s) of the ankle. COMPARISON: None. FINDINGS: There is an acute nondisplaced fracture in the distal fibula with soft tissue swelling best seen on the oblique film. Normal visualized distal tibia. Normal medial and lateral malleoli. Normal tibiotalar articulation and ankle mortise. Normal visualized talus and calcaneus. The visualized subtalar, talonavicular, calcaneocuboid and tarsal articulations are normal. The soft tissue structures are unremarkable. RAD/Ankle min 3 Views IMPRESSION: Acute nondisplaced fracture in the distal fibula with soft tissue swelling Electronically Signed: Mauricio Olivia MD at 10:16 EDT , Service support ,
--- NOTE | 2018-06-01 11:58 | RAD_ITS ---
STUDY: X-RAY - RIGHT FOOT CLINICAL: Female, 58 years old. Pain and swelling TECHNIQUE: 3 view(s) of the foot. COMPARISON: None. FINDINGS: There are acute nondisplaced, multi fragmented, osteochondral fractures at the bases of the third and fourth metatarsals. There is also a suggestion of a nondisplaced fracture at the base of the second metatarsal. There is diffuse soft tissue swelling. Joint spaces well-maintained.. The lateral film shows lucency in the distal fibula suggestive also of a fracture. RAD/Foot min 3 Views IMPRESSION: Acute multi fragmented nondisplaced osteochondral fractures at the bases of the third and fourth metatarsals with soft tissue I suspect there is also a nondisplaced fracture at the base of the second metatarsal but this is seen only on the AP film. Joint spaces well-preserved Distal fibular fracture also suspected Electronically Signed: Mauricio Olivia MD at 10:14 EDT , Service support ,
[2018-06-01 14:26] LABS: Absolute Lymphocyte Count 3.18 X10^3/ul (0.83-4.51); Absolute Neutrophil Count 8.3 X10^3/uL (2.0-7.7); Basophil# 0.05 X10^3/uL; Basophil% 0.4 % (0-1); Eosinophil# 0.15 X10^3/uL; Eosinophils% 1.2 % (0-5); Hematocrit 34.8 % (37-47); Hemoglobin 10.4 g/dl (12.0-15.0); Immature Platelet Fraction 0.7 % (1.0-7.9); Lymphocyte # 3.18 X10^3/ul (4.0); Lymphocyte % 24.9 % (19-41); Mean Corp Hgb Conc 29.9 g/gl (32-36); Mean Corpuscular Hgb 25.4 pg (27.0-32.0); Mean Corpuscular Volume 84.9 fL (81-99); Mean Platelet Vol. 9.1 fl (6.2-12.0); Monocyte# 0.94 X10^3/uL; Monocyte% 7.4 % (0-10); Neutrophil # 8.34 X10^3/uL (2.7-7.7); Neutrophil % 65.2 % (47-70); Platelet Count 753 K/mm3 (150-450); RBC Distribution Width SD 49.5 fl (35.1-43.9); RET-HE 21.1 pg (30-35); Reticulocyte Count 2.43 % (0.5-1.5); White Blood Count 12.8 K/mm3 (4.4-11.0)
[2018-06-01 14:29] LABS: Differential Indicated SCAN CRITERIA MET; POSITIVE COUNT YES; POSITIVE DIFFERENTIAL NO; POSITIVE MORPHOLOGY NO
[2018-06-01 14:45] LABS: Ferritin 21 ng/mL (8-252); Iron 38 ug/dL (50-170); Iron Binding Capacity,Total 399 ug/dL (250-450)
[2018-06-01 15:05] LABS: Platelet Estimate MKD INC (ADEQ)
[2018-06-02 15:05] LABS: Pathologist Review Reviewed
== END ==
PROVIDERS: Family Provider Family Medicine; PCP Family Medicine; Referring Provider Family Medicine; Visit Provider Family Medicine
DX: M79.671 Pain in right foot (principal); S82.409A Unspecified fracture of shaft of unspecified fibula, initial encounter for closed fracture; D64.9 Anemia, unspecified
CPT/HCPCS: 36415; 73610; 73630; 82728; 83540; 83550; 85025; 85045

== ENCOUNTER → 2018-09-14 16:50 | Outpatient (CLI) | payer MEDICAID, SELFPAY ==
[2018-05-19 08:00] VITALS: BMI 36.2
[2018-09-14 17:36] LABS: Absolute Lymphocyte Count 2.42 X10^3/ul (0.83-4.51); Absolute Neutrophil Count 7.4 X10^3/uL (2.0-7.7); Basophil# 0.03 X10^3/uL; Basophil% 0.3 % (0-1); Eosinophil# 0.09 X10^3/uL; Eosinophils% 0.9 % (0-5); Hematocrit 34.8 % (37-47); Hemoglobin 10.3 g/dl (12.0-15.0); Immature Platelet Fraction 1.7 % (1.0-7.9); Lymphocyte # 2.42 X10^3/ul (4.0); Lymphocyte % 22.9 % (19-41); Mean Corp Hgb Conc 29.6 g/gl (32-36); Mean Corpuscular Hgb 24.6 pg (27.0-32.0); Mean Corpuscular Volume 83.1 fL (81-99); Mean Platelet Vol. 9.3 fl (6.2-12.0); Monocyte# 0.55 X10^3/uL; Monocyte% 5.2 % (0-10); Neutrophil % 69.9 % (47-70); Platelet Count 554 K/mm3 (150-450); RBC Distribution Width CV 17.3 % (11.6-14.6); RBC Distribution Width SD 51.8 fl (35.1-43.9); RET-HE 27.5 pg (30-35); Red Blood Count 4.19 M/mm3 (4.2-5.4); Reticulocyte Count 1.62 % (0.5-1.5); White Blood Count 10.6 K/mm3 (4.4-11.0)
[2018-09-14 17:42] LABS: POSITIVE COUNT NO; POSITIVE DIFFERENTIAL NO; POSITIVE MORPHOLOGY NO
[2018-09-14 18:04] LABS: Vitamin D,25 Hydroxy 41.2 ng/mL (29.95-100.01)
[2018-09-14 18:05] LABS: ALB/GLOB Ratio 0.8 RATIO (0.9-2.4); AST(SGOT) 10 U/L (15-37); Alanine Aminotransfer ALT/SGPT 20 U/L (13-56); Albumin, Serum 3.6 g/dL (3.2-5.0); Alkaline Phosphatase 108 U/L (45-117); Anion Gap 8 (5-15); BUN 22 mg/dL (7-18); BUN/Creat Ratio 27.1 RATIO (10-20); Calcium,Total 9.1 mg/dL (8.5-10.1); Chloride 101 mmol/L (98-107); Creatinine, Serum 0.81 mg/dL (0.55-1.02); EST Glomerular Filtration Rate 77 mL/min (>60); Est Glom Filt Rate - Afr Amer 93 mL/min (>60); Ferritin 12 ng/mL (8-252); Globulin 4.5 g/dL (2.2-4.2); Glucose 100 mg/dL (74-106); Iron 36 ug/dL (50-170); Iron Binding Capacity,Total 437 ug/dL (250-450); Potassium 4.2 mmol/L (3.5-5.1); Protein, Total 8.1 g/dL (6.4-8.2); Sodium Level 136 mmol/L (136-145)
== END ==
PROVIDERS: Family Provider Family Medicine; PCP Family Medicine; Referring Provider Family Medicine; Visit Provider Family Medicine
DX: M06.9 Rheumatoid arthritis, unspecified (principal); D64.9 Anemia, unspecified
CPT/HCPCS: 36415; 80053; 82306; 82728; 83540; 83550; 85025; 85045

== ENCOUNTER 2018-09-15 15:30 | Outpatient (RCR) | payer MEDICAID, SELFPAY ==
--- NOTE | 2018-08-17 16:30 | HP.PTEVAL_ITS ---
Patient's Visit Information FRANCIE MORENO is a 58 year old F referred to Physical Therapy by ROMULO OBANDO with a diagnosis of CHRONIC PAIN IN BOTH KNEES,RHEUMTOID ARTHRITIS. Date of Evaluation: 08/17/18 Physical Therapist: Chetan Poole, PT, Cert MDT, OCS - Visit Plan Frequency: 2-3x /Week Duration: 6 Weeks Plan: GRADED AQUATIC PT FOR ROM,STRENGTH BLE LE ,GENERAL CONDTIONING - Subjective Findings: This 58 y/o female presents to physical therapy with chronic pain ,fibromyalgia and Reumatoid arthritis . Patient has had chronic pain bilateral knees ,RA for about 2 years. Patient pain presisted over 2 years . Patient family MD did blood work found RA . Patient moved to [place] diagnosis with fibromyalgia. Patient seen pain manageserafin Chung. Pain is located in knees and wrist right L-S. Patient rollator for gait. Patient has w/c when has flare -ups. Patieny has fatigue flare-ups. Patient is Independant with ADLS' and dressing.Patient has tub shower with seat with grap bars. Patient can help with cleaning but has family and friends to assist. Denies parathesia/tingling. Patient has difficulty sleeping at night.Patient had x-rays knee and drained knee due to edema. Patient condition with pain affects QOL and function. SOCIAL: lives with daughter and son. VOCATION: disiblity - Pain Bilateral Knee Pain Intensity (Out of 10): 10 Pain Intensity Range: 10 Bilateral Back Pain Intensity (Out of 10): 10 Pain Intensity Range: 10 Comment: sacrum with staning Right Wrist Pain Intensity (Out of 10): 4 Pain Intensity Range: 10 - Objective POSTURE: mild foward posture. GAIT: foward posture trunk slow geo slow geo. EDEMA : joint line right 43 cm,left 48 cme. AROM: 20-120 degrees bilateral supine knee flexion. MMT: quads/hams 3+/5 ,hip flexion 4-/5 ,abduction 3+/5,ankle 4-/5. BALANCE: fair with fww - Goals Goal 1:: Independant with Aquatic PT Goal Time Frame: 4-6 Weeks Goal 2:: Patient to ambaulte with rollator community distance with improved quality of gait Goal Time Frame: 4-6 Weeks Goal 3:: Patient decrease knee pain by 40% or greater to improve function with ADL'S and function. Goal Time Frame: 4-6 Weeks Goal 4:: Patient to improve strength of quads/hams 4-/5 to i mprove gait Goal Time Frame: 4-6 Weeks Goal 5:: Patient to improve LFES score by 10-15 points to improve QOL Goal Time Frame: 4-6 Weeks - Rehabilitation Potential Physical Therapy Diagnosis: Patient has mutiple comormidities along with RA ,fibromalgia that impairs patient function with pain ,ROM loss,decrease strength,gait and ADL'S. Patient requires a rollator with gait and ocassionally uses w/c thus will benifit from skilled Aquatic PT Rehabilitation Potential: Fair - Anticipated Interventions Patient/Client Instruction: Educate patient on: Condition, Plan of Care For the Purpose of:: To decrease pain, To increase ROM, To improve muscle performance and motor function, To increase tolerance to activity/condition/position, To improve performance and independence with ADL's, To improve ability of physical actions for home/community/work/leisure, To improve gait and locomotor functions, To improve endurance, To improve balance, To improve safety with gait, To assume or resume ADL's, To improve health and function, To improve ability to perform tasks related to life management Therapeutic Exercise to Include: Strength training, Body mechanics, Postural training, Flexibilty training, In an aquatic setting, Active ROM Comment: BLE For the Purpose of:: To decrease pain, To decrease swelling/inflammation, To increase ROM, To improve muscle performance and motor function, To improve ability to perform ADL's, To increase tolerance to activity/condition/position, To improve ability of physical actions for home/community/work/leisure, To improve health of tissue, To decrease soft tissue restriction, To increase flexibility/ROM, To improve endurance, To improve balance, To improve safety with gait, To assume or resume ADL's, To improve ability to perform tasks related to life management Thank you for the opportunity to evaluate your patient. For Medicare and Medicare HMO plans, please review the plan of care and approve it. It will need to be FAXED BACK to us at [phone] for Medicare purposes. For Medicare only, by signing this I certify the plan of care. Please let me know if there are questions or concerns regarding this plan of care. Physician Signature: Date:____
--- NOTE | 2018-12-12 10:28 | HP.PTDCNRP_ITS ---
HP - Discharge Summary (1) - Patient Information FRANCIE MORENO was seen in my office for initial evaluation on 08/17/18. The following Plan of Care was established for this patient: Initial Frequency: 2-3x /Week Initial Duration: 6 Weeks - Anticipated Interventions Patient/Client Instruction: Educate patient on: Condition, Plan of Care For the Purpose of:: To decrease pain, To increase ROM, To improve muscle perfo rmance and motor function, To increase tolerance to activity/condition/position, To improve performance and independence with ADL's, To improve ability of physical actions for home/community/work/leisure, To improve gait and locomotor functions, To improve endurance, To improve balance, To improve safety with gait, To assume or resume ADL's, To improve health and function, To improve ability to perform tasks related to life management Therapeutic Exercise to Include: Strength training, Body mechanics, Postural training, Flexibilty training, In an aquatic setting, Active ROM For the Purpose of:: To decrease pain, To decrease swelling/inflammation, To increase ROM, To improve muscle performance and motor function, To improve ability to perform ADL's, To increase tolerance to activity/condition/position, To improve ability of physical actions for home/community/work/leisure, To improve health of tissue, To decrease soft tissue restriction, To increase flexibility/ROM, To improve endurance, To improve balance, To improve safety with gait, To assume or resume ADL's, To improve ability to perform tasks related to life management This patient was last seen in our office 09/15/08. Pertinent comments regarding their Physical therapy will appear below: Patient was seen in PT for chronic knee pain and RA for Aquatic PT focusing on ROM ,strength,endurance,thus is d/c . At this point I will be discontinuing this patient from physical therapy. I would be happy to see this patient again in the future if found appropriate by the physician. Thank you! Chetan Poole, PT, Cert MDT, OCS
== END 2018-09-15 19:00 | disposition home or self-care (01) ==
LOC: PT 15:30
PROVIDERS: Family Provider Family Medicine; PCP Family Medicine
DX: M25.561 Pain in right knee (principal); M25.562 Pain in left knee; G89.29 Other chronic pain; M79.7 Fibromyalgia; M06.9 Rheumatoid arthritis, unspecified
CPT/HCPCS: 97113; 97163

== ENCOUNTER → 2018-11-16 15:48 | Outpatient (CLI) | payer MEDICARE, MEDICAID, SELFPAY ==
[2018-05-19 08:00] VITALS: BMI 36.2
== END ==
PROVIDERS: Family Provider Family Medicine; PCP Family Medicine; Referring Provider Family Medicine; Visit Provider Family Medicine
DX: R32 Unspecified urinary incontinence (principal)
CPT/HCPCS: 87086; 87088

== ENCOUNTER → 2018-12-25 | Outpatient (CLI) | payer MEDICARE, MEDICAID, SELFPAY | END | disposition home or self-care (01) | LOC: LABSPEC 16:43 | PROVIDERS: Family Provider Family Medicine; PCP Family Medicine; Visit Provider Family Medicine | DX: R30.0 Dysuria (principal) | CPT/HCPCS: 87086; 87088; 87186 ==

== ENCOUNTER 2019-04-12 11:30 | Outpatient (RCR) | payer MEDICARE, MEDICAID, SELFPAY ==
--- NOTE | 2019-03-30 12:44 | HP.PTEVAL ---
Patient's Visit Information FRANCIE MORENO is a 59 year old F referred to Physical Therapy by ALFREDO SU with a diagnosis of B knee Pain, RA. Date of Evaluation: 03/30/19 Physical Therapist: Saad Llanos DPT - Visit Plan Frequency: 2x /Week Duration: 4-6 Weeks Plan: Start with BLE strengthenig, ROM, general mobility and functional strengthenign in aquatic setting. - Subjective Findings: Pt. is here today for her initial evaluatuon with diagnosis of RA and chronic bilateral knee pain. Pt. reports having increased B knee for years. She reports having decreased symptoms with medications, but contiunes to have overall increased B KNee and some low back pain. Patient has w/c when has flare -ups. Patient has fatigue flare-ups. Patient is Independant with ADLS' and dressing.Patient has tub shower with seat with grab bars. Patient can help with cleaning but has family and friends to assist. Denies parathesia/tingling. Patient has difficulty sleeping at night.Patient had x-rays knee and drained knee due to edema. SOCIAL: lives with daughter and son. VOCATION: disiblity. Pt. had good success with aquatic therapy previously and would like to continue again. - Pain B knees Pain Intensity (Out of 10): 4 Pain Intensity Range: 2, 6 - Objective POSTURE: mild foward posture. Pt. stands with lack of TKE in stance. GAIT: foward posture trunk slow geo slow geo. PT. lacks TKE during stance phase of gait. Pt. decreased step length bilaterally. EDEMA : joint line right 41 cm,left 44 cm. AROM: 20-120 degrees bilateral supine knee flexion. MMT: quads/hams 3+/5 ,hip flexion 4-/5 ,abduction 3+/5,ankle 4-/5. bilaterally. BALANCE: fair with fww, decreased stability without AD - Goals Goal 1:: Pt. to be I with HEP. Goal Time Frame: 4-6 Weeks Goal 2:: Pt. to have increased B kne extension ROM to lacking less than 10deg bilaterally. Goal Time Frame: 4-6 Weeks Goal 3:: Pt. to have incerased BLE strength by 1/2 grade of all effected musculature. Goal Time Frame: 4-6 Weeks Goal 4:: Pt. to ambualte with rollator with improved gait pattern 500+ft. allowing for increased community mobility. Goal Time Frame: 4-6 Weeks Goal 5:: Pt. to sleep throughout the night without increase in symptoms. Goal Time Frame: 4-6 Weeks - Rehabilitation Potential Physical Therapy Diagnosis: Pt. has signs and symptosm consistent with B knee pain and RA. PT. would benefit from PT in aquatic setting. Pt. has decreased ROM of bilateral knees especially into extension, she has difficulty with walkinga nd icnreased pain with all mobility. Pt. would benefit from PT in aquatic setting to address above limiations priogressing functional mobility on land. Rehabilitation Potential: Fair - Anticipated Interventions Patient/Client Instruction: Educate patient on: Condition, Plan of Care, Risk Factors, Benefits of Fitness Program For the Purpose of:: To improve decision making, To facilitate caregiver knowledge, To improve self management, To prevent re-injury, To improve ability to perform tasks related to life management Therapeutic Exercise to Include: Strength training, Power training, Endurance training, Balance training, Postural training, Flexibilty training, In an aquatic setting, Passive ROM, Active ROM, Dynamic Lumbar Stabilization For the Purpose of:: To decrease pain, To decrease swelling/inflammation, To increase ROM, To improve nutrient delivery to tissue, To increase oxygenation perfusion, To improve muscle performance and motor function, To decrease level of supervision to perform tasks, To improve ability of physical actions for home/community/work/leisure, To improve gait and locomotor functions, To improve health of tissue, To decrease soft tissue restriction, To increase flexibility/ROM, To improve endurance, To improve balance Thank you for the opportunity to evaluate your patient. For Medicare and Medicare HMO plans, please review the plan of care and approve it. It will need to be FAXED BACK to us at [phone] for Medicare purposes. For Medicare only, by signing this I certify the plan of care. Please let me know if there are questions or concerns regarding this plan of care. Physician Signature: Date:
== END 2019-04-12 19:00 | disposition home or self-care (01) ==
LOC: PT 11:30
PROVIDERS: Family Provider Family Medicine; PCP Family Medicine
DX: M25.561 Pain in right knee (principal); M25.562 Pain in left knee; G89.29 Other chronic pain
CPT/HCPCS: 97113; 97161

== ENCOUNTER → 2019-04-12 | Outpatient (CLI) | payer MEDICARE, MEDICAID, SELFPAY ==
[2018-05-19 08:00] VITALS: BMI 36.2
--- NOTE | 2019-04-12 17:06 | RAD_ITS ---
HISTORY:osteoarthritis osteoarthritis COMPARISON: None FINDINGS: # of images incl. paperwork: 4 XR Knee Complete 4 Views or More: Right BONE AND JOINTS: No acute fracture or subluxation. Medial greater than lateral joint space narrowing with marginal osteophytes and subchondral sclerosis. There is also patellofemoral joint space narrowing SOFT TISSUES: Minimal joint effusion No radiopaque foreign body. RAD/Knee 4 or More Views IMPRESSION: Osteoarthritis at 1808 Reported and signed by: Eli Hernández DO Electronically Signed: Eli Hernández DO at 18:07 EDT Tel , Service support ,
--- NOTE | 2019-04-12 17:06 | RAD_ITS ---
HISTORY:osteoarthritis osteoarthritis COMPARISON: None FINDINGS: # of images incl. paperwork: 4 XR Knee Complete 4 Views or More: Left BONE AND JOINTS: No acute fracture or subluxation. Medial greater than lateral joint space narrowing with marginal osteophytes. Spurring is seen at the medial femoral condyle which may be secondary to prior trauma. Patellofemoral joint space narrowing SOFT TISSUES: Minimal joint effusion No radiopaque foreign body. RAD/Knee 4 or More Views IMPRESSION: Osteoarthritis as discussed at 1828 Reported and signed by: Eli Hernández DO Electronically Signed: Eli Hernández DO at 18:27 EDT Tel , Service support ,
== END | disposition home or self-care (01) ==
LOC: MTRAD 17:05
PROVIDERS: Family Provider Family Medicine; PCP Family Medicine; Referring Provider Family Medicine; Visit Provider Family Medicine
DX: M17.0 Bilateral primary osteoarthritis of knee (principal)
CPT/HCPCS: 73564

== ENCOUNTER 2019-06-14 17:48 | Emergency (ER) | payer MEDICARE, SELFPAY ==
[2019-06-14 17:51] VITALS: BP 104/67; PULSE 114; RESP 17; TEMP 36.5; O2SAT 94; BMI 36.6
--- NOTE | 2019-06-14 18:13 | RAD_ITS ---
STUDY: X-RAY CHEST REASON FOR EXAM: Female, 59 years old. Syncope and chest pain TECHNIQUE: Single frontal view of the chest. COMPARISON: May 19, 2018 FINDINGS: The lungs are clear and expanded. There is no demonstrated pleural abnormality. Normal size heart. Normal mediastinum and taya. Normal visualized pulmonary arteries. Normal visualized aortic arch and descending thoracic aorta. Normal visualized thoracic spine. Normal visualized ribs, clavicles, and shoulders. There is no demonstrated abnormality of the visualized soft tissue structures of the upper abdomen. RAD/Chest 1 View (Portable) IMPRESSION: Normal x-ray examination of the chest. Electronically Signed: Tez Eller MD at 18:57 EDT , Service support ,
--- NOTE | 2019-06-14 18:13 | EKG12_ITS ---
Test Reason : Blood Pressure : / mmHG Vent. Rate : 074 BPM Atrial Rate : 074 BPM P-R Int : 146 ms QRS Dur : 094 ms QT Int : 430 ms P-R-T Axes : 032 011 049 degrees QTc Int : 477 ms Normal sinus rhythm Normal ECG Confirmed by ESA CRUZ, RAJNI ([id number]), content editor AMAN GIRALDO ([id number] on 06/20/2019 9:39:04 AM Referred By: Confirmed By:LEONELA SEE MD
--- NOTE | 2019-06-14 18:14 | CT_ITS ---
STUDY: CT BRAIN WITHOUT CONTRAST REASON FOR EXAM: Female, 59 years old. Syncope tonight and change in mental status RADIATION DOSAGE (If Supplied By Facility): CTDIvol = ( 44.99 ) mGy, DLP = ( 796.11 ) mGycm TECHNIQUE: Transaxial CT imaging of the brain was performed without administration of intravenous contrast material. Individualized dose optimization techniques were used for this CT. COMPARISON: MR brain May 19, [address] brain same day FINDINGS: Normal soft tissue structures. Normal calvarium. Normal size ventricles and extra-axial spaces for the patient's age. Normal white matter tracts of the cerebral hemispheres. Normal basal ganglia and thalami. Normal brainstem. Normal cerebellum. There is no intracranial hemorrhage. There are no findings of an acute ischemic infarction. Normal visualized paranasal sinuses. CT/Brain/Head without Contrast IMPRESSION: Normal unenhanced CT scan of the brain. Electronically Signed: Tez Eller MD at 19:46 EDT , Service support ,
--- NOTE | 2019-06-14 18:14 | ED.VIS.GEN ---
History of Present Illness Chief Complaint: Syncope Informant: Patient, Family Onset: Today Current Severity: Mild Narrative: Patient presents with family they complained that basically she was walking trying to go to family members football game when she felt very weak and tired she sat down and had a spell where she seemed to have some shakes she was not unconscious she says she indicates that basically she was extremely fatigued at that time. The patient has a history of cardiac stent 2016 related to [place], rheumatoid arthritis and osteoporosis her cardiovascular condition status has been very stable, she is had no chest pain fever cough abdominal pain. She indicates however she has had diffuse whole body pain despite the use of multiple medications for her rheumatoid arthritis, including IV medication infusing of a immune modulating medication she gets every month she last had that about 3 weeks ago she is scheduled to have recurrent infusion next week. Indicates despite using all of these immune medications for her rheumatoid she continues to have diffuse whole body pain she aches all over from her joints, she indicates she has disruption of her sleep cycle where she does not sleep at night because of the pain and then she sleeps during the day She continued to have whole body pain felt diffuse pain that she had all over, she indicates she wanted to make sure she could get to the football game as it was an important event she wanted to attend so she took 4-10 mg Flexeril tablets with the thought that would help her whole body pain and believes that contributed to the above, she also reports intermittent diarrhea that is better controlled but she is been able to eat and drink Past Medical History - Allergies and Home Meds Allergies/Adverse Reactions: Allergies No Known Allergies Allergy (Verified 06/14/19 17:51) Primary Care Physician: Duane Odom MD [Primary Care Provider] - Past Medical History: - - Fluids as above Surgical History: - - Stents placed due to acute [place] in 2016 in [place]. Smoking Status: Current every day smoker - Family History Maternal Family History: Family History (Last Updated 06/05/18 @ 10:55 by Nena Jordan) Mother Hypertension CVA (cerebral vascular accident) Sister Cancer Father Heart disease Family History: Reports: Heart Disease Review of Systems General: Reports: - - She indicates she is had months of whole body diffuse joint pain fatigue, sleep disturbance where she does not sleep at night tends to sleep during the day and diarrhea intermittently. Denies: Chills, Fever, Sweats Eyes: Denies: Visual changes - bilaterally, Diplopia ENT: Denies: Rhinorrhea, Sore throat Cardiovascular: Denies: Chest pain, Palpitations Respiratory: Denies: Dyspnea, Cough, Dyspnea on exertion Gastrointestinal: Denies: Abdominal pain, Nausea, Vomiting, Diarrhea, Melena, Hematochezia Genitourinary: Denies: Dysuria, Hematuria, Frequency Musculoskeletal: Denies: Back pain, Extremity Pain Skin: Denies: Rash, Wounds Neurological: Denies: Headache, Weakness, Numbness Physical Exam Vital Signs/Narrative: Vital Signs Temp Pulse Resp BP Pulse Ox 06/14/19 17:51 97.7 F L 114 H 17 104/67 94 General: Well nourished, Well developed, No Acute Distress Head: Normocephalic, Atraumatic Eyes: Perrl, EOMI ENT: Moist mucous membranes, No rhinorrhea Neck: Supple, Nontender Cardiovascular: Regular rate, Regular rhythm, No murmurs Respiratory: No distress, CTA bilaterally, Chest nontender Abdomen: Soft, Nontender, Nondistended, Normal bowel sounds Back: Nontender, Normal Inspection Extremities: Nontender, No edema Skin: Normal color, No rash Neurological: Alert, Oriented x3, Cranial nerves II-XII grossly intact, Normal Strength, Normal Sensation Psychological: Normal affect, Normal Mood Diagnostic/Tx/Re-eval - Medical Decision Making Given all the above the differential is rather extensive there is no signs at this time of an acute [place] seizures or anything life-threatening she is had this diffuse whole body pain weakness syndrome despite taking all of her medications today she took 4 10 mg Flexeril tablets and felt more shaky given all the above screening labs head CT IV fluids, I should mention at this time she is feeling back to her baseline just having the diffuse whole body pain that she is been having for months The patient's EKG shows a rate of about 74 no injury pattern QRS T durations are all unremarkable, the patient screening labs are also generally unremarkable her creatinine slightly elevated 1.49, she has received IV fluid boluses no troponin negative chest x-ray head CT negative Had a long conversation with her and the family discussed inpatient versus outpatient management she is feeling well prefers outpatient management declined admission she will take her medications as prescribed, there is no signs at this time of any type infectious complication electrolyte complication from the infusions that she is receiving and other meds she will take her Flexeril only as prescribed follow-up with her outpatient providers tomorrow and return for change in symptoms Home stable declined admission Final impression Whole-body pain, generalized fatigue, overmedication of Flexeril, history of rheumatoid arthritis and osteoporosis ED Disposition - Plan for ED Patient: Diagnosis: Syncope Instructions: SYNCOPE, Unk Cause Referrals: Duane Odom MD [Primary Care Provider] - Additional Instructions: Take all of your medications as prescribed, do not take any extra doses, notify your physicians that you are concerned that some of the medications and infusions you are receiving are making you fatigue or causing other symptoms
[2019-06-14 18:26] VITALS: PULSE 82; RESP 16; O2SAT 93
[2019-06-14 18:46] LABS: Absolute Lymphocyte Count 1.45 X10^3/uL (0.83-4.51); Absolute Neutrophil Count 9.8 X10^3/uL (2.0-7.7); Basophil# 0.09 X10^3/uL; Basophil% 0.7 % (0-1); Eosinophil# 0.11 X10^3/uL; Eosinophils% 0.9 % (0-5); Hematocrit 43.6 % (37-47); Hemoglobin 14.3 g/dL (12.0-15.0); Lymphocyte # 1.45 X10^3/ul (4.0); Mean Corp Hgb Conc 32.8 g/dL (32-36); Mean Corpuscular Hgb 30.1 pg (27.0-32.0); Mean Corpuscular Volume 91.8 fL (81-99); Mean Platelet Vol. 10.2 fl (6.2-12.0); Monocyte# 0.62 X10^3/uL; Monocyte% 5.1 % (0-10); NRBC Flagged by Analyzer 0 % (0-5); Neutrophil # 9.75 X10^3/uL (2.7-7.7); Neutrophil % 80.6 % (47-70); Platelet Count 312 K/mm3 (150-450); RBC Distribution Width CV 12.6 % (11.6-14.6); Red Blood Count 4.75 M/mm3 (4.2-5.4); White Blood Count 12.1 K/mm3 (4.4-11.0)
[2019-06-14 19:00] LABS: Anion Gap 7 (5-15); BUN 16 mg/dL (7-18); BUN/Creat Ratio 10.7 RATIO (10-20); Calcium,Total 9.4 mg/dL (8.5-10.1); Chloride 105 mmol/L (98-107); Creatinine, Serum 1.49 mg/dL (0.55-1.02); EST Glomerular Filtration Rate 38 mL/min (>60); Est Glom Filt Rate - Afr Amer 46 mL/min (>60); Estimated Creatinine Clearance 31.76 ml/min; Glucose 142 mg/dL (74-106); Magnesium 1.9 mg/dL (1.6-2.6); Potassium 3.4 mmol/L (3.5-5.1); Sodium Level 141 mmol/L (136-145)
[2019-06-14 19:53] LABS: BNP,B-Type NATRIURETIC PEPTIDE 36.7 pg/mL (0-100)
[2019-06-14 21:03] VITALS: BP 115/67; PULSE 66; RESP 16; O2SAT 94
== END 2019-06-14 21:07 | disposition home or self-care (01) ==
LOC: ED 18:28
PROVIDERS: Emergency Provider Emergency Medicine; Family Provider Family Medicine; PCP Family Medicine
DX: R55 Syncope and collapse (principal); R19.7 Diarrhea, unspecified; I25.2 Old myocardial infarction; M06.9 Rheumatoid arthritis, unspecified; M81.0 Age-related osteoporosis without current pathological fracture; Z95.5 Presence of coronary angioplasty implant and graft; Z79.82 Long term (current) use of aspirin; Z79.899 Other long term (current) drug therapy; F17.200 Nicotine dependence, unspecified, uncomplicated
CPT/HCPCS: 70450; 71045; 80048; 83735; 83880; 84484; 85025; 93005; 96360; 99284; J7040

== ENCOUNTER → 2020-06-10 17:51 | Outpatient (CLI) | payer MEDICARE, MEDICAID, SELFPAY ==
--- NOTE | 2020-06-10 18:15 | CT_ITS ---
STUDY: CT RIGHT LOWER EXTREMITY REASON FOR EXAM: Right knee osteoarthritis, surgical planning. TECHNIQUE: Transaxial CT imaging of the lower extremity was performed. Coronal and sagittal images were reformatted. Individualized dose optimization techniques were used for this CT. COMPARISON: Radiographs 04/12/2019. FINDINGS: Knee: There is severe joint space narrowing of the medial femorotibial compartment with marginal osteophytes and subchondral cystic change (coronal reconstructions 32-37). There is mild joint space narrowing and marginal osteophytes of the lateral femorotibial compartment (coronal reconstructions 29-31). There are marginal osteophytes, severe joint space narrowing and subchondral cystic change of the patellofemoral articulation (sagittal reconstructions 33-36). There is lateral tilt and lateral subluxation of the patella (axial image 318). There is arthrosis of the proximal tibiofibular articulation (coronal reconstruction 40). There is a joint effusion. The quadriceps tendon is grossly normal. The patellar tendon is grossly normal. Normal Hoffa''s fat pad. The soft tissues are unremarkable. Hip: There is mild joint space narrowing of the superior lateral right hip (coronal reconstruction 61). There is a bone island in the intertrochanteric femur (coronal reconstruction 61, 62). Ankle: There is a small osteochondral lesion of the anterior medial talar dome (coronal reconstruction 14; sagittal reconstruction 26). Normal posterior subtalar, talonavicular and calcaneocuboid articulations. There is a bone island in the dorsal aspect of the talar neck (sagittal reconstructions 23-25). CT/Extremity Lower without Contra IMPRESSION: Tricompartmental osteoarthritis of the right knee. Lateral tilt and lateral subluxation of the patella. Right knee joint effusion. Mild right hip arthrosis. Small osteochondral lesion of the medial talar dome. Electronically Signed: Iglesia Tripp MD at 13:36 EDT Tel , Service support ,
== END ==
PROVIDERS: PCP Family Medicine; Referring Provider Orthopaedic Surgery; Visit Provider Orthopaedic Surgery
DX: M17.0 Bilateral primary osteoarthritis of knee (principal); M21.161 Varus deformity, not elsewhere classified, right knee
CPT/HCPCS: 73700

== ENCOUNTER → 2020-06-11 14:00 | Outpatient (CLI) | payer MEDICARE, SELFPAY | PROVIDERS: Anesthesiology; PCP Family Medicine; Referring Provider Orthopaedic Surgery; Visit Provider Orthopaedic Surgery | DX: Z20.828 Contact with and (suspected) exposure to other viral communicable diseases (principal) | CPT/HCPCS: 87635; C9803; U0003 ==

== ENCOUNTER → 2020-06-12 15:53 | Outpatient (CLI) | payer MEDICARE, MEDICAID, SELFPAY ==
--- NOTE | 2020-06-12 15:56 | RAD_ITS ---
STUDY: X-RAY CHEST REASON FOR EXAM: Female, 60 years old. PRE OP, MILD SOB, NO OTHER COMPLAINTS TECHNIQUE: PA and lateral views of the chest. COMPARISON: Previous study of 06/14/2019 FINDINGS: The lungs are clear and expanded. There is no demonstrated pleural abnormality. Normal size heart. Normal mediastinum and taya. Normal visualized pulmonary arteries. Normal visualized aortic arch and descending thoracic aorta. Normal visualized thoracic spine. Normal visualized ribs, clavicles, and shoulders. There is no demonstrated abnormality of the visualized soft tissue structures of the upper abdomen. RAD/Chest PA and Lateral IMPRESSION: Normal x-ray examination of the chest. Electronically Signed: Anand Ontiveros MD at 23:51 EDT , Service support ,
[2020-06-12 17:42] LABS: Absolute Lymphocyte Count 1.66 X10^3/uL (0.83-4.51); Absolute Neutrophil Count 3.6 X10^3/uL (2.0-7.7); Basophil# 0.04 X10^3/uL; Basophil% 0.7 % (0-1); Eosinophil# 0.17 X10^3/uL; Eosinophils% 2.9 % (0-5); Hematocrit 40.8 % (37-47); Hemoglobin 13.6 g/dL (12.0-15.0); Lymphocyte # 1.66 X10^3/ul (4.0); Mean Corp Hgb Conc 33.3 g/dL (32-36); Mean Corpuscular Hgb 30.1 pg (27.0-32.0); Mean Corpuscular Volume 90.3 fL (81-99); Mean Platelet Vol. 10.1 fl (6.2-12.0); Monocyte% 6.8 % (0-10); NRBC Flagged by Analyzer 0 % (0-5); Neutrophil # 3.63 X10^3/uL (2.7-7.7); Neutrophil % 61.3 % (47-70); Platelet Count 402 K/mm3 (150-450); RBC Distribution Width CV 12.8 % (11.6-14.6); RBC Distribution Width SD 42.5 fl (35.1-43.9); Red Blood Count 4.52 M/mm3 (4.2-5.4); White Blood Count 5.9 K/mm3 (4.4-11.0)
[2020-06-12 17:57] LABS: Erythrocyte Sedimentation Rate 10 mm/hr (0-30)
[2020-06-12 17:59] LABS: Prothrombin Time (Protime)PT. 12.7 SECONDS (11.7-14.9)
[2020-06-12 18:00] LABS: Partial Thromboplast Time 27.1 Seconds (24.1-36.2)
[2020-06-12 18:17] LABS: ALB/GLOB Ratio 1.2 RATIO (0.9-2.4); AST(SGOT) 14 U/L (15-37); Alanine Aminotransfer ALT/SGPT 23 U/L (13-56); Alkaline Phosphatase 63 U/L (45-117); Anion Gap 5 (5-15); BUN 19 mg/dL (7-18); BUN/Creat Ratio 25.9 RATIO (10-20); Calcium,Total 9.2 mg/dL (8.5-10.1); Chloride 102 mmol/L (98-107); Creatinine, Serum 0.73 mg/dL (0.55-1.02); EST Glomerular Filtration Rate 86 mL/min (>60); Est Glom Filt Rate - Afr Amer 104 mL/min (>60); Globulin 3.4 g/dL (2.2-4.2); Glucose 90 mg/dL (74-106); Potassium 4.2 mmol/L (3.5-5.1); Protein, Total 7.4 g/dL (6.4-8.2); Sodium Level 136 mmol/L (136-145)
[2020-06-12 19:57] LABS: Magnesium 2.4 mg/dL (1.6-2.6)
== END ==
PROVIDERS: Anesthesiology; PCP Family Medicine; Referring Provider Family Medicine; Visit Provider Family Medicine
DX: Z01.818 Encounter for other preprocedural examination (principal); I25.10 Atherosclerotic heart disease of native coronary artery without angina pectoris; M06.9 Rheumatoid arthritis, unspecified; R06.02 Shortness of breath; E55.9 Vitamin D deficiency, unspecified
CPT/HCPCS: 36415; 71046; 80053; 82306; 83735; 85025; 85610; 85652; 85730; 87081

== ENCOUNTER → 2020-09-01 11:11 | Outpatient (CLI) | payer MEDICARE, MEDICAID, SELFPAY ==
[2020-07-09 14:50] VITALS: BMI 35.1
--- NOTE | 2020-09-02 17:40 | STRESSREP ---
Stress Test Report Pharmacologic myocardial perfusion stress test. 60-year-old lady for preoperative evaluation. Stress protocol: Resting EKG demonstrates normal sinus rhythm with a rate of 66 bpm normal intervals are noted resting blood pressure 142/98 mmHg. 0.4 mg of regadenoson was infused per usual protocol followed by rapid intravenous saline flush injection. Continuous EKG monitoring was performed. The maximum heart rate attained was 93 bpm which was 58% of max impacted heart rate maximum workload was 1 metabolic equivalent. At rest there were no ST or T wave changes noted to suggest abnormal flow reserve at peak infusion nonspecific ST-T wave changes were noted with no meet the criteria for ischemia. No clinical angina was noted. The resting blood pressure was 142/98 with a peak blood pressure 160/92 mmHg. Myocardial perfusion protocol. 11.9 mCi of technetium 99m sestamibi was injected at rest. 0.4 mg of regadenoson was infused per usual protocol. At peak infusion 33.9 mCi of technetium 99m sestamibi was injected stress images were obtained stress and rest images were reconstructed and compared in the short axis vertical long horizontal long axis. Gated images were also obtained Perfusion SPECT analysis: Review of the stress images demonstrate normal uptake of tracer noted in all areas of the myocardium the resting images similarly demonstrate normal uptake of tracer noted in all areas of the myocardium. No evidence of reversibility is noted suggest ischemia no previous infarct is noted. Gated SPECT analysis: The gated ejection fraction is 70%. Conclusion: Normal pharmacologic myocardial perfusion stress test. Preserved ejection fraction.
== END ==
PROVIDERS: PCP Family Medicine; Referring Provider Internal Medicine Cardiovascular Disease; Visit Provider Internal Medicine Cardiovascular Disease
DX: I25.10 Atherosclerotic heart disease of native coronary artery without angina pectoris (principal); Z95.5 Presence of coronary angioplasty implant and graft
CPT/HCPCS: 78452; 93017; A9500; A4216; J2785

== ENCOUNTER 2020-12-01 10:30 | Observation (INO) | payer MEDICARE, MEDICAID, SELFPAY ==
[2020-07-09 14:50] VITALS: BMI 35.1
--- NOTE | 2020-11-19 12:52 | EKG12_ITS ---
Test Reason : PRE OP Blood Pressure : / mmHG Vent. Rate : 080 BPM Atrial Rate : 080 BPM P-R Int : 162 ms QRS Dur : 076 ms QT Int : 380 ms P-R-T Axes : 051 025 054 degrees QTc Int : 438 ms Normal sinus rhythm Normal ECG Confirmed by RIVKA CRUZ, AIME ([id number]), mapping editor CHRISTOPHER BRIONES ([id number]) on 11/20/2020 12:41:01 PM Referred By: Lalit Charles Confirmed By:AIME TINEO MD
[2020-11-19 15:05] LABS: Hematocrit 36.5 % (37-47); Hemoglobin 11.9 g/dL (12.0-15.0); Mean Corp Hgb Conc 32.6 g/dL (32-36); Mean Corpuscular Hgb 29.6 pg (27.0-32.0); Mean Corpuscular Volume 90.8 fL (81-99); Mean Platelet Vol. 9.3 fl (6.2-12.0); Platelet Count 503 K/mm3 (150-450); RBC Distribution Width CV 12.1 % (11.6-14.6); RBC Distribution Width SD 40.5 fl (35.1-43.9); Red Blood Count 4.02 M/mm3 (4.2-5.4); White Blood Count 7.4 K/mm3 (4.4-11.0)
[2020-11-19 15:38] LABS: Magnesium 2.1 mg/dL (1.6-2.6)
[2020-11-19 15:41] LABS: Vitamin D,25 Hydroxy 76.3 ng/mL
[2020-11-19 15:54] LABS: ALB/GLOB Ratio 1.1 RATIO (0.9-2.4); AST(SGOT) 8 U/L (15-37); Alanine Aminotransfer ALT/SGPT 15 U/L (13-56); Albumin, Serum 3.5 g/dL (3.2-5.0); Alkaline Phosphatase 95 U/L (45-117); Anion Gap 6 (5-15); BUN 19 mg/dL (7-18); BUN/Creat Ratio 33.9 RATIO (10-20); Calcium,Total 8.9 mg/dL (8.5-10.1); Chloride 103 mmol/L (98-107); Cholesterol 237 mg/dL (200); Creatinine, Serum 0.56 mg/dL (0.55-1.02); EST Glomerular Filtration Rate 116 mL/min (>60); Est Glom Filt Rate - Afr Amer 141 mL/min (>60); Globulin 3.3 g/dL (2.2-4.2); Glucose 85 mg/dL (74-106); High Density Lipoprotein 66 mg/dL; Potassium 4.2 mmol/L (3.5-5.1); Protein, Total 6.8 g/dL (6.4-8.2); Sodium Level 139 mmol/L (136-145); Triglycerides 137 mg/dL; Very Low Density Lipoprotein 27 mg/dL (5-40)
[2020-12-01] VITALS (11 sets, daily range): BP systolic 100–149; BP diastolic 50–83; PULSE 67–91; RESP 16–18; TEMP 36.2–36.8; O2SAT 93–100; BMI 37.8
[2020-12-01] MEDS: Acetaminophen 500 MG Tablet 1000 MG PO ×2 (10:05→23:15)
[2020-12-01] MEDS: Gabapentin 600 MG Tablet PO (10:06)
[2020-12-01] MEDS: Lactated Ringers 1,000 ML 100 ML IV (10:08)
--- NOTE | 2020-12-01 10:32 | RAD_ITS ---
STUDY: X-RAY - RIGHT KNEE REASON FOR EXAM: Female, 60 years old. post op -- AP and Lateral xray of operative knee in PACU TECHNIQUE: 2 view(s) of the knee. COMPARISON: Comparison is made with prior study dated 04/12/2019. FINDINGS: Normal visualized distal femur. Normal visualized proximal tibia and fibula. Normal proximal tibiofibular articulation. The patient is status post right total knee replacement. There is good alignment. Postoperative soft tissue changes. RAD/Knee 1 or 2 Views IMPRESSION: Status post right total knee replacement. There is good alignment. Postoperative soft tissue changes. Electronically Signed: Raymon Marquez MD at 13:51 EDT , Service support ,
[2020-12-01] MEDS: Cefazolin 2 GM in 0.9% Normal Saline 100 ML IV (10:53)
--- NOTE | 2020-12-01 11:30 | KNEE_PTH ---
PATIENT: FRANCIE MORENO LOC: [facility] U#:[id number] AGE/SX: 60/F ROOM: MS311 RE12/01/[address]: Dr. Lalit Charles DO : 1960 BED: 1 DIS: 12/03/2020 SPEC #: [id number] RECD: 12/01/20 13:38 STATUS: SHAAN REXiao #: [id number] KAYLA: 12/01/20 11:[address]: Lalit Charles DEPT: SURGICAL PATHOLOGY RECD BY: Mervat Jansen ENTERED: 12/02/20 07:39 SP TYPE: TOTAL KNEE OTHR DR: Dr. Dimitry Odom MD Tissues: Knee, NOS Procedures: Decalcification bone/plaque Surgery Specimen Level IV HEADER OPERATION: ERAS, total knee replacement robotic arm assist PRE-OP DIAGNOSIS: Osteoarthritis right knee; varus deformity right knee TISSUE SUBMITTED: Bone and tissue right knee MICROSCOPIC DIAGNOSIS Bone and tissue, right knee, total knee replacement/resection: Pieces of bone with degenerative osteoarthritic changes. Fibroadipose tissue, fibroconnective tissue and reactive synovial tissue with moderate to marked chronic inflammation.. MARIA:scott 12/05/2020 MICROSCOPIC DESCRIPTION Slides are reviewed. GROSS DESCRIPTION Received is one container designated bone and soft tissue right knee. The specimen consists of multiple fragments of castillo-yellow bone measuring in aggregate 11 x 8 x 3 cm. Two pieces of soft tissue are attached to the bone which measures in aggregate 2.5 x 2.5 x 0.3 cm. A number of bony fragments contain articular surfaces consistent with tibial plateau and femoral condyle and displaying prominent osteophyte formation, eburnation, and bone erosion. [employer] sections are submitted in two cassettes as follows: 1 - entire soft tissue, 2 - bone after decalcification. / MARIA:scott 12/02/20 TC: CPT: 66267, [id number]
--- NOTE | 2020-12-01 12:41 | PCM.OPRPT ---
Report of Operation Date of Procedure: 12/01/20 Pre-Operative Diagnosis: OA/RA right knee Post-Operative Diagnosis: same Surgery/Procedure Performed:: Right TKR ballpoint pen assembly machine operator: Oleg Mendez Type of Anesthesia:: Spinal Anesthesiologist: Be Keyes Specimen's removed: bone - Admit VTE Documentation VTE Present on Admission: No VTE Mechan Device Prophylaxis: SCD's, Thigh High BRUCE Hose VTE Pharm Prophylaxis ordered?: Yes
[2020-12-01] MEDS: Lactated Ringers 1,000 ML 999 ML IV (13:32)
[2020-12-01 13:46] LABS: Bedside Glucose 81 mg/dL (70-110)
[2020-12-01 13:58] LABS: Hematocrit 36.1 % (37-47); Hemoglobin 11.6 g/dL (12.0-15.0); Mean Corp Hgb Conc 32.1 g/dL (32-36); Mean Corpuscular Hgb 29.7 pg (27.0-32.0); Mean Corpuscular Volume 92.6 fL (81-99); Mean Platelet Vol. 9.3 fl (6.2-12.0); Platelet Count 490 K/mm3 (150-450); RBC Distribution Width CV 12.5 % (11.6-14.6); RBC Distribution Width SD 42.1 fl (35.1-43.9); White Blood Count 10.5 K/mm3 (4.4-11.0)
[2020-12-01 14:21] LABS: Anion Gap 6 (5-15); BUN 13 mg/dL (7-18); BUN/Creat Ratio 18.7 RATIO (10-20); Calcium,Total 8.8 mg/dL (8.5-10.1); Chloride 106 mmol/L (98-107); Creatinine, Serum 0.69 mg/dL (0.55-1.02); EST Glomerular Filtration Rate 91 mL/min (>60); Est Glom Filt Rate - Afr Amer 110 mL/min (>60); Estimated Creatinine Clearance 67.72 ml/min; Glucose 123 mg/dL (74-106); Potassium 4.3 mmol/L (3.5-5.1); Sodium Level 140 mmol/L (136-145)
[2020-12-01] MEDS: Hydroxychloroquine 200 MG Tablet PO (16:51)
[2020-12-01] MEDS: Cefazolin 1 GM/50 ML BAG IV (18:39)
[2020-12-01] MEDS: Lactated Ringers 1,000 ML 125 ML IV (20:19)
[2020-12-01] MEDS: oxyCODONE 5 MG Tablet PO (23:14)
[2020-12-01] MEDS: Senna/Docusate Sodium 1 Tablet 2 TABLET PO (23:14)
[2020-12-01] MEDS: Aspirin 81 MG TAB.CHEW PO (23:14)
[2020-12-02 00:53] VITALS: BP 122/65; PULSE 94; RESP 18; TEMP 37.1; O2SAT 98
[2020-12-02] MEDS: Cefazolin 1 GM/50 ML BAG IV (03:57)
[2020-12-02] MEDS: oxyCODONE 5 MG Tablet PO ×4 (04:07→21:32)
[2020-12-02] MEDS: 0.9% Saline Lock 10 ML Syringe IV ×2 (04:08→05:29)
[2020-12-02] MEDS: Pantoprazole Sodium 20 MG Tablet PO (04:08)
[2020-12-02] MEDS: Ondansetron 4 MG/2 ML Vial IV ×2 (05:22→14:13)
[2020-12-02] MEDS: Acetaminophen 500 MG Tablet 1000 MG PO ×3 (05:25→21:31)
[2020-12-02 06:37] LABS: Hematocrit 32.2 % (37-47); Mean Corp Hgb Conc 31.1 g/dL (32-36); Mean Corpuscular Hgb 28.9 pg (27.0-32.0); Mean Corpuscular Volume 93.1 fL (81-99); Mean Platelet Vol. 9.4 fl (6.2-12.0); Platelet Count 362 K/mm3 (150-450); RBC Distribution Width CV 12.5 % (11.6-14.6); RBC Distribution Width SD 42.8 fl (35.1-43.9); Red Blood Count 3.46 M/mm3 (4.2-5.4); White Blood Count 7.7 K/mm3 (4.4-11.0)
[2020-12-02 06:55] VITALS: BP 129/72; PULSE 97; RESP 16; TEMP 37.1; O2SAT 92
[2020-12-02 07:00] LABS: Anion Gap 2 (5-15); BUN 10 mg/dL (7-18); BUN/Creat Ratio 13.6 RATIO (10-20); Calcium,Total 8.3 mg/dL (8.5-10.1); Chloride 106 mmol/L (98-107); Creatinine, Serum 0.73 mg/dL (0.55-1.02); EST Glomerular Filtration Rate 85 mL/min (>60); Est Glom Filt Rate - Afr Amer 103 mL/min (>60); Estimated Creatinine Clearance 64.01 ml/min; Glucose 146 mg/dL (74-106); Sodium Level 138 mmol/L (136-145)
--- NOTE | 2020-12-02 08:09 | PCM.PN.ORT ---
Subjective: Patient sitting up in bed eating breakfast. Patient states pain is well-managed. Patient denies chest pain, shortness of breath, calf pain, nausea vomiting. Patient states she she is hoping that she can have inpatient physical therapy as she has no one at home to help her. This time patient has no other complaints. Objective: Dressings clean dry intact. Vital signs and labs reviewed noted medical record. Patient has no signs and symptoms of DVT. Patient has no respiratory distress, speaking in full sentences. Patient is neurovascular is otherwise intact. Patient is afebrile. - Physical Exam Vitals/I&O's: Vital Signs Temp Pulse Resp BP Pulse Ox 98.7 F 97 16 129/72 H 92 12/02/20 06:55 12/02/20 06:55 12/02/20 06:55 12/02/20 06:55 12/02/20 06:55 Oxygen Flow Rate (L/min) 6 Oxygen Delivery Method Room Air Weight: 93.8 kg Body Mass Index (BMI) 37.8 Intake and Output for Last 24 Hours 11/30/20 12/01/20 12/02/20 23:59 23:59 23:59 Intake Total 2485.5 / 2985.5 1550 / 1550 Output Total 400 / 400 Balance 2485.5 / 2585.5 1150 / 1150 General: Alert, Oriented x3, Cooperative HEENT: PERRLA Oral: Moist Mucosa Neurological: Cranial nerves II-XII grossly intact Psych/Mental Status: Normal Affect Laboratory Results 12/01/20 10:02: POC Glucose 81 12/01/20 13:30: WBC 10.5, RBC 3.90 L, Hgb 11.6 L, Hct 36.1 L, MCV 92.6, MCH 29.7, MCHC 32.1, RDW Std Deviation 42.1, RDW Coeff of Daphne 12.5, Plt Count 490 H, MPV 9.3 12/01/20 13:30: Sodium 140, Potassium 4.3, Chloride 106, Carbon Dioxide 28.0, Anion Gap 6, BUN 13, Creatinine 0.69, Estim Creat Clear Calc 67.72, Est GFR (MDRD) Af Amer 110, Est GFR (MDRD) Non-Af 91, BUN/Creatinine Ratio 18.7, Glucose 123 H, Calcium 8.8 12/02/20 05:48: WBC 7.7, RBC 3.46 L, Hgb 10.0 L, Hct 32.2 L, MCV 93.1, MCH 28.9, MCHC 31.1 L, RDW Std Deviation 42.8, RDW Coeff of Daphne 12.5, Plt Count 362, MPV 9.4 12/02/20 05:48: Sodium 138, Potassium 4.0, Chloride 106, Carbon Dioxide 30.0, Anion Gap 2 L, BUN 10, Creatinine 0.73, Estim Creat Clear Calc 64.01, Est GFR (MDRD) Af Amer 103, Est GFR (MDRD) Non-Af 85, BUN/Creatinine Ratio 13.6, Glucose 146 H, Calcium 8.3 L Current Medications Acetaminophen (Acetaminophen 500 Mg Tablet) 1,000 mg PO Q8 [facility] Last Admin: 12/02/20 05:25 Dose: 1,000 mg Documented by: Aspirin (Aspirin 81 Mg Tab.Chew) 81 mg PO BID [facility] Last Admin: 12/01/20 23:14 Dose: 81 mg Documented by: Ergocalciferol (Ergocalciferol 50,000 Unit Capsule) 50,000 unit PO Mejia@1000 [facility] Hydroxychloroquine Sulfate (Hydroxychloroquine 200 Mg Tablet) 200 mg PO BIDCM [facility] Last Admin: 12/01/20 16:51 Dose: 200 mg Documented by: Insulin Human Lispro (Insulin Lispro 100 Unit/Ml Insuln.Pen) 1 - 6 unit SC Q4H PRN PRN; Protocol PRN Reason: BG>/= 180, SEE PROTOCOL Lisinopril (Lisinopril 10 Mg Tablet) 10 mg PO DAILY [facility] Loratadine (Loratadine 10 Mg Tablet) 10 mg PO DAILY PRN PRN PRN Reason: ALLERGIES Ondansetron HCl (Ondansetron 4 Mg/2 Ml Vial) 4 mg IV Q8H PRN PRN PRN Reason: NAUSEA Last Admin: 12/02/20 05:22 Dose: 4 mg Documented by: Oxycodone HCl (Oxycodone 5 Mg Tablet) 5 - 10 mg PO Q4H PRN PRN PRN Reason: Pain Score 4-10 Last Admin: 12/02/20 04:07 Dose: 5 mg Documented by: Pantoprazole Sodium (Pantoprazole Sodium 20 Mg Tablet) 20 mg PO DAILY [facility] Last Admin: 12/02/20 04:08 Dose: 20 mg Documented by: Promethazine HCl (Promethazine 25 Mg/Ml Syringe) 12.5 mg IM Q6H PRN PRN; Protocol PRN Reason: NAUSEA/VOMITING Senna/Docusate Sodium (Senna/Docusate Sodium 1 Tablet) 2 tablet PO BID BILL Last Admin: 12/01/20 23:14 Dose: 2 tablet Documented by: Sodium Chloride (0.9% Saline Lock 10 Ml Syringe) 10 - 40 ml IV UD PRN PRN Reason: SALINE FLUSH Last Admin: 12/02/20 05:29 Dose: 10 ml Documented by: Tizanidine HCl (Tizanidine Hcl 2 Mg Tablet) 4 mg PO QHS PRN PRN PRN Reason: MUSCLE RELAXER Tocilizumab (Tocilizumab 162 Mg/0.9 Ml Syringe) 355.6 mg SC Q18D [facility] Medical Necessity - Tobacco Use Smoking Status: Former smoker Tobacco Use: Non-smoker Assessment/Plan All Active Problems (Last Reviewed 07/09/20 @ 15:[address] Matty Graves MD) Preop cardiovascular exam (Acute) History of non-ST elevation myocardial infarction (NSTEMI) (Resolved 04/26/16) Status post right total knee arthroplasty Plan 1. Continue all pain medications as prescribed 2. Continue physical therapy, weight-bear as tolerated with walker 3. Aspirin 81 mg 1 p.o. every 12 hours x30 days for postop DVT prophylaxis 4. Encourage incentive spirometry 5. Continue ice to right knee 6. Patient will discuss with case management on postoperative placement for inpatient rehab 7. Possible discharge tomorrow.
[2020-12-02] MEDS: Aspirin 81 MG TAB.CHEW PO ×2 (09:14→21:31)
[2020-12-02] MEDS: Hydroxychloroquine 200 MG Tablet PO ×2 (09:14→18:41)
[2020-12-02] MEDS: Senna/Docusate Sodium 1 Tablet 2 TABLET PO ×2 (09:15→21:32)
[2020-12-02] MEDS: Lisinopril 10 MG Tablet PO (09:15)
[2020-12-02 09:25] VITALS: BP 140/71; PULSE 99; RESP 18; TEMP 36.6; O2SAT 98
--- NOTE | 2020-12-02 10:25 | CASEMGMT ---
MAKAYLA SHRESTHA Face to Face with patient for initial transition planning/care coordination assessment. RN CM introduced self and role at [facility]. Patient lying in bed, alert and oriented. Patient willing to participate in assessment and is able to answer all questions appropriately. Care providers, pharmacy, and demographics verified. Patient wishes to discharge to TCU for rehab. MAKAYLA SHRESTHA explained that insurance would not approve SNF at discharge as patient is doing well with therapy. Discussed HHC at discharge and patient agreeable. Patient states he has no further needs or concerns at this time. CM to follow for discharge planning needs that may arise. 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 Patient lives downstair, daughter upstairs. 7-10 steps in the home with railing. Patient independent prior to surgery. Transportation: Daughter DME/HHC: Patient states she has shower chair, raised toilet, grab bars, cane, walker, and wheelchair. Patient has had [facility]HC in the past. RN HENRIETTA will provide list of HHC to patient. Disposition Plan: Patient to discharge home with HHC, family support, and follow-up plans in place. Shea HODGE, MAKAYLA, CM
--- NOTE | 2020-12-02 12:02 | CASEMGMT ---
MAKAYLA SHRESTHA in to discuss HHC with patient. Patient was provided a list of HHC providers including quality and resource use data and consistent with the patient?s preferred geographic region, medical needs, and insurance network. Patient wishes to review HHC list and will provide preferences. MAKAYLA SHRESTHA will continue to follow this patient and plan for a safe discharge.
--- NOTE | 2020-12-02 14:44 | CASEMGMT ---
MAKAYLA SHRESTHA in to complete MU[employer]OZ form with patient. MAKAYLA SHRESTHA explained MU[employer]OZ form to patient, patient voiced understanding. Patient signed MU[employer]OZ form and filed in chart. Patient provided with copy of signed MU[employer]OZ form. MAKAYLA SHRESTHA discussed HHC with patient. After reviewing list of HHC, patient [facility] MAKAYLA SHRESTHA made referral to [facility] and [place] states they should be able to accept the patient. MAKAYLA SHRESTHA updated that patient regarding referral to [facility]. Patient had no further questions or concerns at this time.
[2020-12-02 15:25] VITALS: BP 145/82; PULSE 94; RESP 16; TEMP 36.9; O2SAT 94
[2020-12-02 21:33] VITALS: BP 151/93; PULSE 104; RESP 18; TEMP 36.7; O2SAT 96
[2020-12-03] MEDS: oxyCODONE 5 MG Tablet PO ×3 (02:37→12:39)
[2020-12-03 02:44] VITALS: BP 141/75; PULSE 89; RESP 16; TEMP 37.2; O2SAT 97
[2020-12-03] MEDS: Acetaminophen 500 MG Tablet 1000 MG PO (05:51)
[2020-12-03 08:35] VITALS: BP 121/65; PULSE 99; RESP 18; TEMP 37; O2SAT 99
[2020-12-03] MEDS: Aspirin 81 MG TAB.CHEW PO (08:41)
[2020-12-03] MEDS: Pantoprazole Sodium 20 MG Tablet PO (08:41)
[2020-12-03] MEDS: Lisinopril 10 MG Tablet PO (08:42)
[2020-12-03] MEDS: Hydroxychloroquine 200 MG Tablet PO (08:42)
--- NOTE | 2020-12-03 09:25 | CASEMGMT ---
MAKAYLA SHRESTHA called Deepika at [facility]. They are able to accept pt for PT.
--- NOTE | 2020-12-03 09:45 | PCM.PN.ORT ---
Subjective: Patient sitting at bedside. Patient states pain is well-managed. Patient denies nausea vomiting, chest pain shortness of breath, patient has no other complaints at this time. Patient states she is ready for discharge home. She states she wants to do home therapy. Objective: Dressings clean dry intact. Vital signs labs reviewed noted in the medical records. Patient is afebrile, neurovascular is otherwise intact. Patient in no respiratory distress, speaking in full sentences. - Physical Exam Vitals/I&O's: Vital Signs Temp Pulse Resp BP Pulse Ox 98.6 F 99 18 121/65 H 99 12/03/20 08:35 12/03/20 08:35 12/03/20 08:35 12/03/20 08:35 12/03/20 08:35 Oxygen Flow Rate (L/min) 6 Oxygen Delivery Method Room Air Weight: 93.8 kg Body Mass Index (BMI) 37.8 Intake and Output for Last 24 Hours 12/01/20 12/02/20 12/03/20 23:59 23:59 23:59 Intake Total 2485.5 / 2985.5 1550 / 1850 500 / 500 Output Total 400 / 400 Balance 2485.5 / 2585.5 1150 / 1450 500 / 500 General: Alert, Oriented x3, Cooperative HEENT: PERRLA Oral: Moist Mucosa Neurological: Cranial nerves II-XII grossly intact Psych/Mental Status: Normal Affect Current Medications Acetaminophen (Acetaminophen 500 Mg Tablet) 1,000 mg PO Q8 [facility] Last Admin: 12/03/20 05:51 Dose: 1,000 mg Documented by: Aspirin (Aspirin 81 Mg Tab.Chew) 81 mg PO BID [facility] Last Admin: 12/03/20 08:41 Dose: 81 mg Documented by: Ergocalciferol (Ergocalciferol 50,000 Unit Capsule) 50,000 unit PO Mejia@1000 [facility] Hydroxychloroquine Sulfate (Hydroxychloroquine 200 Mg Tablet) 200 mg PO BIDCM [facility] Last Admin: 12/03/20 08:42 Dose: 200 mg Documented by: Insulin Human Lispro (Insulin Lispro 100 Unit/Ml Insuln.Pen) 1 - 6 unit SC Q4H PRN PRN; Protocol PRN Reason: BG>/= 180, SEE PROTOCOL Lisinopril (Lisinopril 10 Mg Tablet) 10 mg PO DAILY [facility] Last Admin: 12/03/20 08:42 Dose: 10 mg Documented by: Loratadine (Loratadine 10 Mg Tablet) 10 mg PO DAILY PRN PRN PRN Reason: ALLERGIES Ondansetron HCl (Ondansetron 4 Mg/2 Ml Vial) 4 mg IV Q8H PRN PRN PRN Reason: NAUSEA Last Admin: 12/02/20 14:13 Dose: 4 mg Documented by: Oxycodone HCl (Oxycodone 5 Mg Tablet) 5 - 10 mg PO Q4H PRN PRN PRN Reason: Pain Score 4-10 Last Admin: 12/03/20 08:44 Dose: 10 mg Documented by: Pantoprazole Sodium (Pantoprazole Sodium 20 Mg Tablet) 20 mg PO DAILY [facility] Last Admin: 12/03/20 08:41 Dose: 20 mg Documented by: Promethazine HCl (Promethazine 25 Mg/Ml Syringe) 12.5 mg IM Q6H PRN PRN; Protocol PRN Reason: NAUSEA/VOMITING Senna/Docusate Sodium (Senna/Docusate Sodium 1 Tablet) 2 tablet PO BID [facility] Last Admin: 12/03/20 08:42 Dose: Not Given Documented by: Sodium Chloride (0.9% Saline Lock 10 Ml Syringe) 10 - 40 ml IV UD PRN PRN Reason: SALINE FLUSH Last Admin: 12/02/20 05:29 Dose: 10 ml Documented by: Tizanidine HCl (Tizanidine Hcl 2 Mg Tablet) 4 mg PO QHS PRN PRN PRN Reason: MUSCLE RELAXER Tocilizumab (Tocilizumab 162 Mg/0.9 Ml Syringe) 355.6 mg SC Q18D [facility] Medical Necessity - Tobacco Use Smoking Status: Former smoker Tobacco Use: Non-smoker Assessment/Plan All Active Problems (Last Reviewed 07/09/20 @ 15:[address] Matty Graves MD) Preop cardiovascular exam (Acute) History of non-ST elevation myocardial infarction (NSTEMI) (Resolved 04/26/16) Status post right total knee arthroplasty Plan 1. Continue all pain medications as prescribed 2. Continue physical therapy at home, weight-bear as tolerated with walker 3. Aspirin 81 mg 1 p.o. every 12 hours x30 days for postop DVT prophylaxis 4. Encourage incentive spirometry 5. Continue ice to right knee 6. Discharge after p.m. therapy 7. Follow-up as scheduled, see pink sheet
--- NOTE | 2020-12-03 09:51 | DCINST_ITS ---
Discharge Diet: No Restrictions Discharge Activity: May Not Drive, May Shower, Use Walker May shower in (days): 3 Ice area for (Minutes): 20 - each hour while awake. Weight Bearing Status: Weight bearing as tolerated Elevate: Operative Extremity Additional Activity Instructions:: Wear elastic stockings for 2 weeks after your surgery. Call your doctor if your incision/area has: Continuous Slow Oozing, Sudden Increased Bleeding, Increased Pain/ Swelling, Increased Redness, Foul Smelling Discharge Call your doctor if you observe: Fever of 101 or Higher, Coldness, Increased Pain - in extremity, Numbness or Tingling, Change in Color, Calf discomfort, Uncontrolled pain Change Dressing in (Days):: 0 - and daily as needed. Remove Dressing in (days):: 8 Cleanse incision/area with: Soap & Water Allergies/Adverse Reactions: Allergies No Known Allergies Allergy (Verified 12/01/20 09:35) Medications to take at Discharge Omeprazole [Prilosec] 20 mg PO DAILY 05/19/18 Ergocalciferol (Vitamin D2) [Vitamin D2] 1,250 mcg PO MEJIA 06/11/20 Fexofenadine HCl [Allie Allergy] 60 mg PO DAILY PRN 06/11/20 Hydroxychloroquine [Plaquenil] 200 mg PO BIDCM 06/11/20 Tocilizumab [Actemra] 355.6 mg IV Q18D 06/11/20 tizanidine 4 mg tablet 4 mg PO QHS PRN tab 07/07/20 lisinopril 10 mg tablet 10 mg PO DAILY #90 tab 07/09/20 Acetaminophen [Tylenol] 1,000 mg PO Q8 #90 tablet 12/03/20 Aspirin [Aspirin, Baby] 81 mg PO BID #60 tab.chew 12/03/20 Ergocalciferol [Vitamin D] 50,000 unit PO Mejia@1000 capsule 12/03/20 Insulin Lispro [Humalog KwikPen] 1 - 6 unit SC Q4H PRN PRN insuln.pen 12/03/20 Oxycodone [Oxyir] 5 - 10 mg PO Q4H PRN PRN 7 Days #84 tablet 12/03/20 Senna/Docusate Sodium [Senokot-S] 2 tablet PO BID tablet 12/03/20 The following prescriptions were given: Aspirin [Aspirin, Baby] 81 mg PO BID #60 tab.chew Transmission Status: Pending to [facility] Oxycodone [Oxyir] 5 - 10 mg PO Q4H PRN PRN 7 Days #84 tablet PRN Reason: Pain Score 4-10 Transmission Status: Sent to [facility] Acetaminophen [Tylenol] 1,000 mg PO Q8 #90 tablet Transmission Status: Pending to [facility] Primary Care Physician: Duane Odom MD [Primary Care Provider] - Test Results: Test results from this visit will be discussed in further detail at your follow- up appointment, if applicable. Please Follow Up With: Oleg Mendez PA-C When: as scheduled see pink sheet
--- NOTE | 2020-12-03 11:50 | CASEMGMT ---
Therapy notified RN HENRIETTA that pt reports she does not have a walker. In to pt room to discuss, she states she has a rollator only. Provided pt with local in network DME companies. Pt chose [facility]. Received signed script from . Faxed to [facility]. FU phone call made and rx received. Pt dtr to pick her up at 1pm. They will pick walker up at [facility]. No further needs at this time.
--- NOTE | 2020-12-03 13:25 | PHA.DC.MR ---
Pharmacy Service has performed discharge medication reconciliation for this patient. This [facility] spoke with MARIVEL Qiu regarding Humalog being continued for discharge. TORB to D/C. The patient's discharge medication list was reviewed for discrepancies and discrepancies were resolved. Home Medications Omeprazole [Prilosec] 20 mg PO DAILY 05/19/18 Fexofenadine HCl [Allie Allergy] 60 mg PO DAILY PRN 06/11/20 Hydroxychloroquine [Plaquenil] 200 mg PO BIDCM 06/11/20 Tocilizumab [Actemra] 355.6 mg IV Q18D 06/11/20 tizanidine 4 mg tablet 4 mg PO QHS PRN tab 07/07/20 lisinopril 10 mg tablet 10 mg PO DAILY #90 tab 07/09/20 Acetaminophen [Tylenol] 1,000 mg PO Q8 #90 tablet 12/03/20 Aspirin [Aspirin, Baby] 81 mg PO BID #60 tab.chew 12/03/20 Ergocalciferol [Vitamin D] 50,000 unit PO Mejia@1000 capsule 12/03/20 Oxycodone [Oxyir] 5 - 10 mg PO Q4H PRN PRN 7 Days #84 tablet 12/03/20 Senna/Docusate Sodium [Senokot-S] 2 tablet PO BID tablet 12/03/20
== END 2020-12-03 13:05 | disposition home or self-care (01) ==
LOC: SDC 10:33 → MS3 10:33
PROVIDERS: Anesthesiology; Admitting Provider Orthopaedic Surgery; PCP Family Medicine; Referring Provider Orthopaedic Surgery; Visit Provider Orthopaedic Surgery
PROC: 0SRC0JZ Replacement of Right Knee Joint with Synthetic Substitute, Open Approach (ICD-10-PCS; CPT 27447; principal; 2020-12-01 11:00)
DX: M17.11 Unilateral primary osteoarthritis, right knee (principal); M06.9 Rheumatoid arthritis, unspecified; Z20.828 Contact with and (suspected) exposure to other viral communicable diseases; Z79.82 Long term (current) use of aspirin; Z79.899 Other long term (current) drug therapy; I25.2 Old myocardial infarction; I25.10 Atherosclerotic heart disease of native coronary artery without angina pectoris; M79.7 Fibromyalgia; G47.30 Sleep apnea, unspecified; E78.00 Pure hypercholesterolemia, unspecified; Z87.891 Personal history of nicotine dependence; M81.0 Age-related osteoporosis without current pathological fracture; K21.9 Gastro-esophageal reflux disease without esophagitis
CPT/HCPCS: 01402; 27447; 64447; S2900; 36415; 73560; 80048; 80053; 80061; 82306; 82962; 83735; 85027; 87081; 87426; 88305; 88311; 93005; 96361; 96365; 96366; 96375; 96376; 97110; 97116; 97162; 97166; 97530; 97535; 99218; 99251; C1776; C9803; J7120; A4216; G0378; G0379; G0463; J2405

== ENCOUNTER 2021-02-19 15:00 | Outpatient (RCR) | payer MEDICARE, MEDICAID, SELFPAY ==
[2020-12-01 14:49] VITALS: BMI 37.8
--- NOTE | 2021-01-29 08:16 | HP.PTEVAL ---
Patient's Visit Information FRANCIE MORENO is a 60 year old F referred to Physical Therapy by Dr. Lalit Charles, with a diagnosis of Right Total Knee Arthroplasty. Date of Evaluation: 01/28/21 Physical Therapist: Saad Llanos DPT - Visit Plan Frequency: 2-3x /Week Duration: 4 Weeks Plan: The pt. is currently independent with her HEP of hip and quad strengthening, TA activation, thoracic extensions over a chair, and working on extending her knee while ambulating. The pt. needs to work on increasing her bilateral end range knee extension by doing PROM, joint mobs, and exercises to enforce this. Increase her bilateral hip and knee strength, and increase her single leg stance time. - Subjective The pt. is here today for L knee pain which has been occurring intermittently since 2015. She is s/p R TKA on December 01 and was referred by Dr. Charles, who she last saw on December 30. The pt. states her R knee is doing well and feels like it is stronger than her left leg. She is wanting to get her L knee replaced soon and will meet with her doctor on March 03 to discuss the possibility of getting it replaced as well. Her L knee causes her pain while standing for long periods of time, waking up in the morning, and while walking. She ranks her pain as a 0/10 when sitting here today, but the pain can get up to an 8/10. She also reports having low back pain since September 2017 and ranks this as a 6/10 most days. The pt. was diagnosed with RA about four years ago, as well as osteoarthritis in both knee joints. She has not had any RA flareups for awhile and plans to see her RA doctor on February 24. The pt. states that she is unable to descend stairs well and has to either go down backwards or sideways due to pain in her left knee. Her bedroom is located on the basement floor where she has 10 steps. She tries to walk at home as much as she can, but uses a wheelchair and standard walker nearing the end of the day and uses a cane while walking out in the community. To sleep, the pt. lays on her right or left side and takes a muscle relaxer before bed. For pain relief, the pt. uses ice occasionally, as well as extra strength Tylenol. 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 The pt. denies any N/T, but does have bowel issues that she has been dealing with for a few years and plans to get a colonoscopy this year sometime. Her PCP is aware of this. - Pain L Knee Pain Intensity (Out of 10): 0 Pain Intensity Range: 8 Low back Pain Intensity (Out of 10): 6 Pain Intensity Range: 10 - Objective Posture: rounded shoulders, forward head, minimal increase in thoracic kyphosis, flexed position while standing and ambulating. ROM: L knee flexion 130deg, R 125deg, knee extension L 12deg from 0deg, R 10deg from 0deg. MMT: hip flexion bilat 4+/5, knee extension R 5/5, L 4+/5 with pain, knee flexion bilat 4+/5, dorsiflexion/inversion bilat 5/5, eversion bilat 5/5, hip abduction bilat 4/5. Palpation: TTP near medial and lateral L knee joint line. Sensation: Pt. reports having decrease sensation in the R lateral aspect of the knee. Observation: R knee had minimal swelling, but all incisions looked good and intact. The pt. was ambulating with a cane today in her R hand. She had decreased stance time on the left LE than compared to the R and stride length was decreased. negative Homans sign in both LE. - Goals Goal 1:: LTG: The pt. will be compliant and independent with her HEP. Goal Time Frame: 2-4 Weeks Goal 2:: LTG: The pt. will increase her bilateral knee extension by 5-10degrees, so she can walk with a more normal gait pattern. Goal 3:: LTG: The pt. will increase her bilateral hip and knee strength by 1-2 muscle grades, so she can ascend/descent the stairs easier. Goal 4:: LTG: The pt. will be able to ascend/descent a flight of stairs with pain less than a 2/10. - Rehabilitation Potential Physical Therapy Diagnosis: The pt. is a 60 yo female who presents to the clinic s/p right TKA and was referred by Dr. Charles. The pt. comes to PT today with left knee pain having signs and symptoms consistent with L knee osteoarthritis. She requests therapy to address her left knee pain and prepare her for a possible left TKA later this year. She exhibits decreased L knee flexion and extension, R knee extension, decreased hip and knee strength bilaterally, and pain occurring mostly in the L knee. The pt. is unable to participate in her ADL's at home due to the pain in the L knee and needs physical therapy to address her impairments and limitations. Rehabilitation Potential: Good - Anticipated Interventions Patient/Client Instruction: Educate patient on: Condition, Plan of Care For the Purpose of:: To decrease pain, To decrease swelling/inflammation, To increase ROM, To improve ability to perform ADL's, To increase tolerance to activity/condition/position, To improve performance and independence with ADL's, To improve gait and locomotor functions, To increase flexibility/ROM, To improve endurance, To improve tolerance to ADL's Therapeutic Exercise to Include: Strength training, Endurance training, Balance training, Coordination, Postural training, Passive ROM, Active ROM For the Purpose of:: To decrease pain, To increase ROM, To improve muscle performance and motor function, To improve ability to perform ADL's, To increase tolerance to activity/condition/position, To improve ability of physical actions for home/community/work/leisure, To improve gait and locomotor functions, To increase flexibility/ROM, To improve endurance, To assume or resume ADL's Manual Therapy Techniques to Include: Mobilization, Passive ROM For the Purpose of:: To decrease pain, To increase ROM, To increase oxygenation perfusion, To improve muscle performance and motor function, To improve ability to perform ADL's, To increase flexibility/ROM Cryotherapy (ice pack, ice massage): Yes Thermo therapy (hot pack): Yes For the Purpose of:: To decrease pain, To increase ROM, To increase oxygenation perfusion, To improve muscle performance and motor function, To improve health of tissue, To increase flexibility/ROM Thank you for the opportunity to evaluate your patient. For Medicare and Medicare HMO plans, please review the plan of care and approve it. It will need to be FAXED BACK to us at [phone] for Medicare purposes. For Medicare only, by signing this I certify the plan of care. Please let me know if there are questions or concerns regarding this plan of care. Physician Signature: Date:
== END 2021-02-19 19:00 | disposition home or self-care (01) ==
LOC: PT 15:00
PROVIDERS: PCP Family Medicine; Referring Provider Orthopaedic Surgery; Visit Provider Orthopaedic Surgery
DX: Z47.1 Aftercare following joint replacement surgery (principal); M17.11 Unilateral primary osteoarthritis, right knee; Z96.651 Presence of right artificial knee joint
CPT/HCPCS: 97110; 97161

== ENCOUNTER → 2021-04-15 15:34 | Outpatient (CLI) | payer MEDICARE, MEDICAID, SELFPAY ==
[2021-03-20 15:01] VITALS: BMI 36.6
[2021-04-15 17:46] LABS: Hematocrit 37.3 % (37-47); Mean Corp Hgb Conc 32.2 g/dL (32-36); Mean Corpuscular Hgb 28.2 pg (27.0-32.0); Mean Corpuscular Volume 87.8 fL (81-99); Mean Platelet Vol. 9.9 fl (6.2-12.0); Platelet Count 500 K/mm3 (150-450); RBC Distribution Width CV 13.2 % (11.6-14.6); RBC Distribution Width SD 42.2 fl (35.1-43.9); Red Blood Count 4.25 M/mm3 (4.2-5.4); White Blood Count 8.8 K/mm3 (4.4-11.0)
[2021-04-15 17:54] LABS: Prothrombin Time (Protime)PT. 12.5 SECONDS (11.7-14.9)
[2021-04-15 17:55] LABS: Partial Thromboplast Time 32.4 Seconds (24.1-36.2)
[2021-04-15 17:57] LABS: Anion Gap 7 (5-15); BUN 17 mg/dL (7-18); BUN/Creat Ratio 20.2 RATIO (10-20); Calcium,Total 9.4 mg/dL (8.5-10.1); Chloride 103 mmol/L (98-107); Creatinine, Serum 0.84 mg/dL (0.55-1.02); EST Glomerular Filtration Rate 73 mL/min (>60); Est Glom Filt Rate - Afr Amer 88 mL/min (>60); Glucose 96 mg/dL (74-106); Potassium 3.7 mmol/L (3.5-5.1); Sodium Level 140 mmol/L (136-145)
== END ==
PROVIDERS: PCP Family Medicine; Referring Provider Family Medicine; Visit Provider Family Medicine
DX: Z01.818 Encounter for other preprocedural examination (principal); I10 Essential (primary) hypertension
CPT/HCPCS: 36415; 80048; 85027; 85610; 85730

== ENCOUNTER → 2021-05-05 13:51 | Outpatient (CLI) | payer MEDICARE, MEDICAID, SELFPAY ==
--- NOTE | 2021-05-05 13:57 | CT_ITS ---
CT Lower Extremity W/O Contrast Injection INDICATION:61 years old Female presenting with KNEE PAIN. TECHNIQUE: Sequential axial 2.5 mm collimated images are obtained through the left hip and ankle. 0.625 mm images were obtained through the left knee. No intravenous contrast was administered. Images were reformatted in sagittal and coronal planes and forwarded for preoperative planning. COMPARISON: None. FINDINGS: Contiguous axial images of the left lower extremity was obtained in different collimations for preoperative planning, images demonstrate degenerative changes, no evidence of cortical irregularities or lucencies to suggest fractures, no evidence of lytic or sclerotic bone lesions are seen. No evidence of left hip dislocation, narrowing of the left hip joint space is seen. No evidence of left hip effusion is seen. Severe narrowing of the medial joint space, moderate to severe narrowing of the lateral joint space and severe narrowing of the patellofemoral joint space. Increased density visualized along the articular surfaces, articular sclerosis with subchondral lucency/cyst formation visualized. Hypertrophic bone changes with osteophyte formation visualized. Severe narrowing Moderate suprapatellar effusion is seen with scattered calcifications.. The ankle mortise is maintained, the talar dome demonstrates no evidence of fracture cortical irregularity, subtle subchondral lucency/cysts visualized, degenerative changes visualized with no evidence of cortical irregularity and lucency to suggest a fracture. No evidence of dislocation is seen. No evidence of ankle joint effusion. IMPRESSION: Degenerative changes visualized, no acute osseous abnormality is seen. Electronically Signed: Saleem Ramírez MD at 16:11 EDT Tel , Service support , CT/Extremity Lower without Contra
== END ==
PROVIDERS: PCP Family Medicine; Referring Provider Orthopaedic Surgery; Visit Provider Orthopaedic Surgery
DX: M25.569 Pain in unspecified knee (principal); G89.29 Other chronic pain
CPT/HCPCS: 73700

== ENCOUNTER 2021-05-25 17:43 | Inpatient (IN) | payer MEDICARE, MEDICAID, SELFPAY ==
[2021-05-25] VITALS (13 sets, daily range): BP systolic 91–158; BP diastolic 56–92; PULSE 59–99; RESP 14–18; TEMP 35.9–37.1; O2SAT 94–100; BMI 37.5
--- NOTE | 2021-05-25 | SYN_PTH ---
PATIENT: FRANCIE MORENO LOC: MS3 U#:[id number] AGE/SX: 61/F [place] [facility] [place]: Dr. Lalit Charles DO : 1960 BED: 1 DIS: 05/28/2021 SPEC #: [id number] RECD: 05/25/21 14:43 STATUS: SHAAN TAMRA #: [id number] KAYLA: 05/25/21 00:[address]: Lalit Charles DEPT: SURGICAL PATHOLOGY RECD BY: Wendy Crockett ENTERED: 05/25/21 14:44 SP TYPE: SYNOVIUM OTHR DR: Dr. Dimitry Odom MD Tissues: Synovial tissue of joint, NOS Procedures: Frozen Section (charge) Special Stain Group I Surgery Specimen Level IV AFB Stain (control) GMS Stain (control) HEADER OPERATION: ERAS, aborted left total knee replacement PRE-OP DIAGNOSIS: Primary osteoarthritis left knee, inflamed knee, rule out infection TISSUE SUBMITTED: Synovium left knee FROZEN SECTION DIAGNOSIS Left lateral synovial tissue, biopsy: Fibrinopurulent material present. AM:scott 05/25/2021 Case has been reviewed in consultation with Dr. Phoenix who concurs with the above diagnosis. IDC:MARIA MICROSCOPIC DIAGNOSIS Left lateral synovial tissue, biopsy: Synovial hyperplasia with associated fibrinopurulent material. Negative for acid-fast bacilli and fungal organisms. See comment. AM:scott 05/27/2021 COMMENT AFB and GMS stains with matched controls were used in the evaluation of this case. Case has been reviewed in consultation with Dr. Phoenix who concurs with the above diagnosis. IDC:MARIA MICROSCOPIC DESCRIPTION Slides are reviewed. GROSS DESCRIPTION Received fresh for frozen section consultation labeled with the patient's name is a specimen designated synovium left knee. The specimen consists of two irregular fragments of yellow mucoid and pink-castillo soft tissue that in aggregate measure 5 x 4 x 1 cm. Manager Agency portions are submitted for cultures. Manager Agency sections are submitted for frozen section consultation in one block. The remainder of the specimen is submitted in cassettes 2-4. / AM:scott 05/25/21 TC:2 CPT: 79548, 05151, 49347 x2
[2021-05-25] MEDS: Acetaminophen 500 MG Tablet 1000 MG PO ×3 (12:10→22:40)
[2021-05-25] MEDS: Gabapentin 600 MG Tablet PO (12:10)
[2021-05-25] MEDS: Lactated Ringers 1,000 ML 100 ML IV ×2 (12:12→19:55)
[2021-05-25 13:01] LABS: Bedside Glucose 61 mg/dL (70-110)
[2021-05-25] MEDS: Cefazolin 2 GM in 0.9% Normal Saline 100 ML IV (13:46)
--- NOTE | 2021-05-25 14:53 | PCM.OP.BLANK ---
Operative Report Date of Procedure: 05/25/21 Patient came in today for a TKR. She was complaining of pain in her knee but denied fevers, chills, nausea or vomiting. She had a routine pre-operative evaluation, However, when I began to dissect down and did the arthrotomy of he joint, the synovium and bone appeared infected. I took synovium for Gram Stain and C & S. I took bone biopsies as well. I then proceeded to do a subtotal synovectomy and thorough irrigation and debridement. I opted not to do a TKR today. She will be admitted to the hospital with an infectious disease consult. I spoke to the pathologist when I was in the OR and although he didn't see organisms on the Gram stain, he is concerned about the appearance of the tissue as well and will proceed with cultures and bone biopsy evaluation.
[2021-05-25] MEDS: Lactated Ringers 1,000 ML 125 ML IV (17:28)
[2021-05-25] MEDS: oxyCODONE 5 MG Tablet PO ×2 (17:29→22:42)
[2021-05-25 18:33] LABS: Anion Gap 2 (5-15); BUN 8 mg/dL (7-18); BUN/Creat Ratio 14.8 RATIO (10-20); Calcium,Total 8.8 mg/dL (8.5-10.1); Chloride 109 mmol/L (98-107); Creatinine, Serum 0.54 mg/dL (0.55-1.02); EST Glomerular Filtration Rate 121 mL/min (>60); Est Glom Filt Rate - Afr Amer 147 mL/min (>60); Estimated Creatinine Clearance 85.43 ml/min; Glucose 106 mg/dL (74-106); Potassium 3.4 mmol/L (3.5-5.1); Sodium Level 142 mmol/L (136-145)
[2021-05-25] MEDS: Lactated Ringers 1,000 ML 999 ML IV (18:53)
[2021-05-25] MEDS: Ondansetron 4 MG/2 ML Vial IV (19:55)
[2021-05-25] MEDS: tiZANidine HCl 2 MG Tablet 4 MG PO (19:57)
--- NOTE | 2021-05-25 20:12 | PCM.RX.CS ---
Consult Pharmacy has been consulted to manage selected antiobiotic: Vancomycin Type of Consult: New start Prior Doses of Antibiotics Received/Current Regimen: Medications Discontinued Medications Vancomycin HCl 2,000 mg/ (Sodium Chloride) 540 mls @ 250 mls/hr IV X1 ONE Stop: 05/25/21 19:09 Last Admin: 05/25/21 19:53 Dose: 250 mls/hr Documented by: Labs: Sodium 142 mmol/L (136-145) 05/25/21 18:10 Potassium 3.4 mmol/L (3.5-5.1) L 05/25/21 18:10 Chloride 109 mmol/L (98-107) H 05/25/21 18:10 Carbon Dioxide 31.0 mmol/L (21.0-32.0) 05/25/21 18:10 Anion Gap 2 (5-15) L 05/25/21 18:10 BUN 8 mg/dL (7-18) 05/25/21 18:10 Creatinine 0.54 mg/dL (0.55-1.02) L 05/25/21 18:10 Est GFR (MDRD) Af Amer 147 mL/min (>60) 05/25/21 18:10 Est GFR (MDRD) Non-Af 121 mL/min (>60) 05/25/21 18:10 BUN/Creatinine Ratio 14.8 RATIO (10-20) 05/25/21 18:10 Glucose 106 mg/dL (74-106) 05/25/21 18:10 Microbiology: Microbiology 05/13/21 14:32 Swab (Method) Nasal Screen MRSA/MSSA - Final Weight used for dosin kg Estimated Creatinine Clearance: 66 Goal Trough: 15-20 mcg/mL Pharmacy Plan for Drug Dosing: Vanc 2000mg followed by 1000mg IV q12h with trough prior to 4th dose per policy. Pharmacy Service will continue to monitor and adjust dosing as required. Follow-Up Labs: Trough Vancomycin - 05/27 @ 0730
--- NOTE | 2021-05-25 22:35 | NURSING ---
2200. went to get pt up for first time after surgery to use BR. pt stood at side of bed, stated she was dizzy and I am going to faint assisted to sit back on edge of bed and BP at this time was 91/59. Sheila, CREDIT CARD CONTROL CLERK went to get bedpan, and pt voided. pt stated she was feeling better laying in bed and pts BP was 117/72 at this time. pt educated to use calllight and that we will use bedpan at this time for safety. pt agreeable.
[2021-05-25] MEDS: Hydroxychloroquine 200 MG Tablet PO (22:39)
[2021-05-25] MEDS: Aspirin 81 MG TAB.CHEW PO (22:39)
[2021-05-25] MEDS: Senna/Docusate Sodium 1 Tablet 2 TABLET PO (22:40)
--- NOTE | 2021-05-26 00:09 | PCS.PANDOC ---
PANDEMIC DOCUMENTATION INITIATED: Date: 04/20/2021 Time: 190
[2021-05-26 01:13] VITALS: BMI 37.5
[2021-05-26 04:43] VITALS: BP 157/89; PULSE 94; RESP 18; TEMP 37; O2SAT 96
[2021-05-26] MEDS: oxyCODONE 5 MG Tablet PO ×4 (04:48→22:29)
[2021-05-26] MEDS: Acetaminophen 500 MG Tablet 1000 MG PO ×3 (04:48→20:21)
[2021-05-26] MEDS: Lactated Ringers 1,000 ML 100 ML IV (04:49)
[2021-05-26 05:04] VITALS: BMI 37.5
[2021-05-26 07:27] LABS: Hematocrit 32.1 % (37-47); Mean Corp Hgb Conc 31.2 g/dL (32-36); Mean Corpuscular Hgb 27.7 pg (27.0-32.0); Mean Corpuscular Volume 88.9 fL (81-99); Mean Platelet Vol. 9.6 fl (6.2-12.0); Platelet Count 399 K/mm3 (150-450); RBC Distribution Width CV 12.9 % (11.6-14.6); RBC Distribution Width SD 42.1 fl (35.1-43.9); Red Blood Count 3.61 M/mm3 (4.2-5.4); White Blood Count 10.7 K/mm3 (4.4-11.0)
[2021-05-26 07:50] VITALS: BMI 37.5
[2021-05-26] MEDS: Aspirin 81 MG TAB.CHEW PO ×2 (07:51→20:21)
[2021-05-26] MEDS: Hydroxychloroquine 200 MG Tablet PO ×2 (07:51→20:21)
[2021-05-26] MEDS: Pantoprazole Sodium 20 MG Tablet PO (07:51)
[2021-05-26] MEDS: Vancomycin IV 1,000 MG/200 ML BAG 200 MG IV ×2 (07:51→20:20)
[2021-05-26] MEDS: Senna/Docusate Sodium 1 Tablet 2 TABLET PO ×2 (07:52→20:21)
--- NOTE | 2021-05-26 07:53 | PN.ORTHO_ITS ---
Subjective Subjective Pt. reports pain in left knee. Denies significant pain in right knee. Denies F/C/N or V. Reports that she has niot been on RA medication since September due to having her other knee replaced in november and then having the Covid vaccine. Objective Data Objective Data Vital Signs: Vital Signs Temp Pulse Resp BP Pulse Ox 98.6 F 94 18 157/89 H 96 05/26/21 04:43 05/26/21 04:43 05/26/21 04:43 05/26/21 04:43 05/26/21 04:43 Oxygen Delivery Method Room Air Weight: 205 lb 0.478 oz Body Mass Index (BMI) 37.5 Intake & Output: Intake and Output for Last 24 Hours 05/24/21 05/25/21 05/26/21 23:59 23:59 23:59 Intake Total 3033.79 / 3033.79 1076.67 / 1076.67 Output Total 600 / 600 Balance 2433.79 / 2433.79 1076.67 / 1076.67 Lab / Micro Data Result Diagrams: 05/26/21 06:05 05/25/21 18:10 Labs: Laboratory Results - last 24 hr 05/25/21 11:53: POC Glucose 61 L 05/25/21 18:10: Sodium 142, Potassium 3.4 L, Chloride 109 H, Carbon Dioxide 31 .0, Anion Gap 2 L, BUN 8, Creatinine 0.54 L, Estim Creat Clear Calc 85.43, Est GFR (MDRD) Af Amer 147, Est GFR (MDRD) Non-Af 121, BUN/Creatinine Ratio 14.8, Glucose 106, Calcium 8.8 05/26/21 06:05: WBC 10.7, RBC 3.61 L, Hgb 10.0 L, Hct 32.1 L, MCV 88.9, MCH 27.7 , MCHC 31.2 L, RDW Std Deviation 42.1, RDW Coeff of Daphne 12.9, Plt Count 399, MPV 9.6 Micro: Microbiology 05/13/21 14:32 Swab (Method) Nasal Screen MRSA/MSSA - Final Physical Exam Const alert, oriented x3 and no apparent distress General Appearance: cooperative Extremity normal capillary refill, no clubbing, cyanosis or edema, no calf tenderness and no pedal edema Right Lower Extremity: knee joint inspection (Left knee is painful to palpation, but not swollen, red or warm. Right knee is WNL) Neuro moves all extremities
[2021-05-26 07:56] LABS: Anion Gap 5 (5-15); BUN 7 mg/dL (7-18); BUN/Creat Ratio 14.5 RATIO (10-20); Calcium,Total 8.6 mg/dL (8.5-10.1); Chloride 106 mmol/L (98-107); Creatinine, Serum 0.48 mg/dL (0.55-1.02); EST Glomerular Filtration Rate 138 mL/min (>60); Est Glom Filt Rate - Afr Amer 167 mL/min (>60); Estimated Creatinine Clearance 96.11 ml/min; Glucose 115 mg/dL (74-106); Potassium 3.4 mmol/L (3.5-5.1); Sodium Level 140 mmol/L (136-145)
[2021-05-26 09:05] VITALS: BP 148/88; PULSE 95; RESP 16; TEMP 37; O2SAT 97
[2021-05-26] MEDS: Ondansetron 4 MG/2 ML Vial IV (10:11)
--- NOTE | 2021-05-26 10:37 | PCM.CONS.GEN ---
Assessment & Plan Assessment/Plan (1) Septic arthritis: PLAN: Suspected L knee septic arthritis seen in OR for planned L TKR 05/25/[address] Charles, replacement not done. Cxs pending, on empiric vanc/ceftriaxone. H/o RA, off meds since September or so. Has gotten covid shot. Will follow, thank you HPI Consult Data Date of Consult: 05/26/21 HPI Narrative HPI Narrative: FRANCIE MORENO, is a 61 F who presented with several years L knee pain. No redness, no swelling, no drainage, no fever/chills. Had R knee replaced earlier this year which has done well. Has h/o RA, meds have been on hold since September. Did get covid shot. Came to [facility], taken to OR 05/[address] Charles for planned L TKA, but inflammation/concern for infection, so joint was not placed. Started on cefazolin yousif-op, broadened to empiric vanc/ceftriaxone yesterday afternoon. Feeling ok. Full ROS performed and neg except as noted above. Mild n/v since OR. [facility] Medical History Allergic rhinitis Anxiety Arthritis Atherosclerosis of coronary artery of [place] heart without angina pectoris Back pain Cardiology follow-up encounter Chronic headaches Depression Essential hypertension Fibromyalgia Former smoker Gastric reflux High cholesterol History of echocardiogram History of heart attack History of non-ST elevation myocardial infarction (NSTEMI) (04/26/16) History of pain when walking History of stress test Obesity Osteoarthritis of both knees Rheumatoid arthritis Shortness of breath on exertion Syncope Uses wheelchair Vitamin D deficiency Walker as ambulation aid Wears glasses Home Medications omeprazole 20 mg PO DAILY 05/19/18 [History Last Taken 05/25/21 07:00] fexofenadine 60 mg PO DAILY PRN 06/11/20 [History Last Taken 11/30/20 10:00] tizanidine 4 mg tablet 4 mg PO QHS PRN tab 07/07/20 [History Last Taken Unknown] lisinopril 10 mg tablet 10 mg PO DAILY #90 tab 07/09/20 [Rx Last Taken 05/25/21 07:00] ergocalciferol (vitamin D2) 50,000 unit PO Mejia@1000 capsule 12/03/20 [Rx Last Taken Unknown] Teresa Mueller 1 tab PO/SL DAILY 05/07/21 [History Last Taken Unknown] acetaminophen 1,000 mg PO Q8 PRN 05/07/21 [History Last Taken Unknown] ashwagandha root extract 900 mg PO DAILY PRN 05/07/21 [History Last Taken Unknown] aspirin 81 mg PO DAILY 05/07/21 [History Last Taken Unknown] hydroxychloroquine 200 mg PO BID 05/07/21 [History Last Taken Unknown] tramadol 50 mg PO Q6H PRN PRN 05/07/21 [History Last Taken Unknown] Allergy/AdvReac Type Severity Reaction Status Date / Time No Known Allergies Allergy Verified 05/25/21 11:58 Family History (Reviewed 03/20/21 @ 15:12 by Deshawn Mascorro SECURITY PROGRAM MANAGER, SECURITY PROGRAM MANAGER-C) Mother Hypertension CVA (cerebral vascular accident) Sister Cancer Father Heart disease Surgical History History of cardiac catheterization History of coronary artery stent placement (04/26/16) History of total right knee replacement Hx of colonoscopy Social History (Reviewed 03/20/21 @ 15:12 by Deshawn Mascorro SECURITY PROGRAM MANAGER, SECURITY PROGRAM MANAGER-C) Smoking Status: Former smoker alcohol intake: current details: Infrequently Physical Exam Const alert, oriented x3 and no apparent distress General Appearance: cooperative Exam Limitations: no limitations HEENT normocephalic and head/scalp atraumatic Eyes PERRL and EOMs intact bilaterally Neck supple and No nodes Resp normal air movement and clear to auscultation bilaterally Cardio regular rate and regular rhythm GI normal to inspection, nondistended, normoactive bowel sounds Extremity no clubbing, cyanosis or edema Skin Skin Narrative: L knee bandaged, no redness or drainage Lab / Micro Data Result Diagrams: 05/26/21 06:05 05/26/21 06:05 Labs: Laboratory Results - last 24 hr 05/25/21 11:53: POC Glucose 61 L 05/25/21 18:10: Sodium 142, Potassium 3.4 L, Chloride 109 H, Carbon Dioxide 31.0, Anion Gap 2 L, BUN 8, Creatinine 0.54 L, Estim Creat Clear Calc 85.43, Est GFR (MDRD) Af Amer 147, Est GFR (MDRD) Non-Af 121, BUN/Creatinine Ratio 14.8, Glucose 106, Calcium 8.8 05/26/21 06:05: WBC 10.7, RBC 3.61 L, Hgb 10.0 L, Hct 32.1 L, MCV 88.9, MCH 27.7, MCHC 31.2 L, RDW Std Deviation 42.1, RDW Coeff of Daphne 12.9, Plt Count 399, MPV 9.6 05/26/21 06:05: Sodium 140, Potassium 3.4 L, Chloride 106, Carbon Dioxide 29.0, Anion Gap 5, BUN 7, Creatinine 0.48 L, Estim Creat Clear Calc 96.11, Est GFR (MDRD) Af Amer 167, Est GFR (MDRD) Non-Af 138, BUN/Creatinine Ratio 14.5, Glucose 115 H, Calcium 8.6 Micro: Microbiology 05/25/21 Unknown Bone - Knee Gram Stain - Final 05/25/21 14:24 Tissue - Knee Gram Stain - Final
[2021-05-26 13:13] VITALS: BMI 37.5
--- NOTE | 2021-05-26 13:50 | CASEMGMT ---
MAKAYLA SHRESTHA Assessment: Face to Face with pt for initial transition planning/care coordination assessment. MAKAYLA SHRESTHA introduced self and role at [facility], pt voices understanding and consents to assessment. Pt is A/O x4 and answers all questions appropriately at this time. Pt lying in bed in no distress. Care providers, pharmacy, and demographics verified/updated. Admitting Dx: Septic Arthritis PCP: Ilene Specialists:Melvin, ortho; Gene, rheumatology; STEPHANIA Cain Preferred Pharmacy: [facility] Retail while inpatient Insurance[facility] [employer] [facility] Benefit: yes LW/HPOA: Pt denies having a LW/DPOA and need for info regarding AD. LNOK: Richelle Solo, dtr; Ni Solo, dtr; Andre Herrera, son Living Arrangements: Pt lives in the basement of her dtr Richelle's home. She reports there is one step to get into the house but there are 15 steps to get to the basement where she lives. Pt states she needs to utilize the steps to prepare food. Pt reports independent in ADL's up to one month ago. Since then she has been sitting on the toilet and bathing herself with bath wipes. Transportation: Pt drives self and denies concerns with transportation. DME/HHC/SNF: Pt states she has a rollator, cane and w/c. She has had [facility] HHC in the past and no SNF stays. Pt is undecided regarding dc plans. Pt states she may have a picc line with IV atb at dc. She states her dtr Ni may be able to come help her but she is not for sure. If her dtr cannot help, she will possibly go to a SNF. Pt states no further concerns/needs. CM to follow. Advised pt to ask CM if any further question/concerns/needs arise, voices understanding. Pt Goal: Home vs SNF pending culture results and recommendations Plan: Home vs SNF pending culture results and recommendations
[2021-05-26 15:00] VITALS: BP 98/59; PULSE 68; RESP 16; TEMP 36.8; O2SAT 98
--- NOTE | 2021-05-26 15:16 | CHAPLAIN ---
Type of Pastoral Visit _x__ Initial Visit ___ Follow-up Visit ___ On-call Visit ___ General Patient Visit ___ Spiritual Assessment ___ Family Conference ___ Bereavement ___ Rapid Response ___ Code Blue ___ Other (describe below) Pastoral Care Referral From _x__ Patient ___ Family ___ Nurse ___ Physician ___ Linotypist ___ Welt Treater ___ Other (describe below) Sacrament/Intervention _x__ Active listening ___ Anointing ___ Islam ___ Bereavement ___ Communion ___ Karlee exploration ___ _x_ Life review _x__ Prayer ___ Reconciliation ___ Sacrament of Sick _x__ Supportive presence ___ Wedding ___ Other (describe below) Pastoral Comments patient describes her health situation and new development which leads to acknowledgement of disappointment and the losses of recent years; patient states that her support are friends who live far away and family but they are too busy with their own lives; pt states that losing her independence is hard; pt states that nature is her source of spirituality; discussion of how she can connect with her support and spirituality
[2021-05-26 17:05] VITALS: BMI 37.5
[2021-05-26] MEDS: Lactated Ringers 1,000 ML 15 ML IV (17:09)
[2021-05-26 20:15] VITALS: BP 164/84; PULSE 92; RESP 18; TEMP 37; O2SAT 97
[2021-05-26 21:13] VITALS: BMI 37.5
[2021-05-26] MEDS: tiZANidine HCl 2 MG Tablet 4 MG PO (22:29)
[2021-05-27 02:42] VITALS: BP 141/65; PULSE 65; RESP 18; TEMP 36.6; O2SAT 98
[2021-05-27] MEDS: Acetaminophen 500 MG Tablet 1000 MG PO ×3 (02:46→20:02)
[2021-05-27] MEDS: oxyCODONE 5 MG Tablet PO ×2 (02:46→08:56)
[2021-05-27 07:50] LABS: Hematocrit 33.9 % (37-47); Hemoglobin 10.6 g/dL (12.0-15.0); Mean Corp Hgb Conc 31.3 g/dL (32-36); Mean Corpuscular Volume 89.7 fL (81-99); Mean Platelet Vol. 9.2 fl (6.2-12.0); Platelet Count 446 K/mm3 (150-450); RBC Distribution Width CV 13.1 % (11.6-14.6); RBC Distribution Width SD 42.5 fl (35.1-43.9); Red Blood Count 3.78 M/mm3 (4.2-5.4); White Blood Count 9.6 K/mm3 (4.4-11.0)
[2021-05-27 08:05] VITALS: O2SAT 96
[2021-05-27 08:23] LABS: Vancomycin, Trough Level 12.1 ug/mL (5.0-15.0)
[2021-05-27] MEDS: Vancomycin IV 1,000 MG/200 ML BAG 200 MG IV (08:55)
[2021-05-27] MEDS: Aspirin 81 MG TAB.CHEW PO ×2 (08:58→20:02)
[2021-05-27] MEDS: Hydroxychloroquine 200 MG Tablet PO ×2 (08:59→20:02)
[2021-05-27] MEDS: Pantoprazole Sodium 20 MG Tablet PO (08:59)
[2021-05-27] MEDS: Senna/Docusate Sodium 1 Tablet 2 TABLET PO (08:59)
[2021-05-27] MEDS: 0.9% NaCl Peripheral Flush Adult/Peds IV (09:04)
[2021-05-27 09:56] VITALS: BP 120/72; PULSE 81; RESP 18; TEMP 37.1; O2SAT 92
[2021-05-27] MEDS: DiphenhydrAMINE 25 MG Capsule 50 MG PO ×2 (10:16→20:06)
[2021-05-27 11:02] VITALS: BP 153/82; PULSE 84; RESP 18; TEMP 36.8; O2SAT 95
--- NOTE | 2021-05-27 11:15 | PCM.RX.CS ---
Consult Pharmacy has been consulted to manage selected antiobiotic: Vancomycin Type of Consult: Follow-up Prior Doses of Antibiotics Received/Current Regimen: 1000MG Q12H 05/26/21 0751, 05/26/21 2020 05/27/21 0855 Labs: Sodium 140 mmol/L (136-145) 05/26/21 06:05 Potassium 3.4 mmol/L (3.5-5.1) L 05/26/21 06:05 Chloride 106 mmol/L (98-107) 05/26/21 06:05 Carbon Dioxide 29.0 mmol/L (21.0-32.0) 05/26/21 06:05 Anion Gap 5 (5-15) 05/26/21 06:05 BUN 7 mg/dL (7-18) 05/26/21 06:05 Creatinine 0.48 mg/dL (0.55-1.02) L 05/26/21 06:05 Est GFR (MDRD) Af Amer 167 mL/min (>60) 05/26/21 06:05 Est GFR (MDRD) Non-Af 138 mL/min (>60) 05/26/21 06:05 BUN/Creatinine Ratio 14.5 RATIO (10-20) 05/26/21 06:05 Glucose 115 mg/dL (74-106) H 05/26/21 06:05 Vancomycin Trough 12.1 ug/mL (5.0-15.0) 05/27/21 07:35 Microbiology: Microbiology 05/25/21 Unknown Bone - Knee Gram Stain - Final 05/25/21 14:24 Tissue - Knee Gram Stain - Final 05/13/21 14:32 Swab (Method) Nasal Screen MRSA/MSSA - Final Weight used for dosin kg Estimated Creatinine Clearance: 96 CRCL Goal Trough: 15-20 mcg/mL Pharmacy Plan for Drug Dosing: Pharmacy Service will continue to monitor and adjust dosing as required. Follow-Up Labs: Trough Vancomycin Labs to be done on [date and time ordered]: 05/26/21 @ 1735
--- NOTE | 2021-05-27 12:46 | PN.ORTHO_ITS ---
Subjective Subjective Patient is s/p I&D with of attempted left total knee arthroplasty with Dr. Charles. Patient resting comfortably in bed. Rates pain 7/ 10 at rest. With movement 8 /10. States taking oxycodone, Tylenol and ice help to relieve pain. Patient has been up with therapy. Walking with the assit of a walker. A febrile, no chest pain, shortness of breath, negative calf pain/ erythema, and no other signs of DVT. Patient has had the development of a rash on the left abdomen/left upper pelvic area as well as left gluteal region. It is itchy she had x1 Benadryl overnight. Prelim cultures are negative to date. Patient was started on empiric Vanco and ceftriaxone. Dr Balbuena is on board for consult.. Objective Data Objective Data Vital Signs: Vital Signs Temp Pulse Resp BP Pulse Ox 98.3 F 84 18 153/82 H 95 05/27/21 11:02 05/27/21 11:02 05/27/21 11:02 05/27/21 11:02 05/27/21 11:02 Oxygen Delivery Method Room Air Weight: 93 kg Body Mass Index (BMI) 37.5 Intake & Output: Intake and Output for Last 24 Hours 05/25/21 05/26/21 05/27/21 23:59 23:59 23:59 Intake Total 3033.79 / 3033.79 3016.67 / 3016.67 456 / 456 Output Total 600 / 600 Balance 2433.79 / 2433.79 3016.67 / 3016.67 456 / 456 Lab / Micro Data Result Diagrams: 05/27/21 07:35 05/26/21 06:05 Labs: Laboratory Results - last 24 hr 05/27/21 07:35: WBC 9.6, RBC 3.78 L, Hgb 10.6 L, Hct 33.9 L, MCV 89.7, MCH 28.0, MCHC 31.3 L, RDW Std Deviation 42.5, RDW Coeff of Daphne 13.1, Plt Count 446, MPV 9.2 05/27/21 07:35: Vancomycin Trough 12.1 Micro: Microbiology 05/25/21 14:24 Tissue - Knee Gram Stain - Final 05/25/21 14:24 Tissue - Knee Anaerobic Culture - Preliminary No growth in 48 hours. 05/25/21 Unknown Bone - Knee Gram Stain - Final 05/25/21 Unknown Bone - Knee Anaerobic Culture - Preliminary No growth in 48 hours. 05/13/21 14:32 Swab (Method) Nasal Screen MRSA/MSSA - Final Physical Exam Narrative Patient resting comfortably in bed No signs of acute distress Satting well on room air Patient has had the development of an erythematous rash on the lower left abdomen and upper left pelvic region as well as the gluteal region. It is itchy warm to touch. Limb is warm to touch, Sensation intact throughout entire lower extremity, including saphenous, sural, superficial and deep peroneal, and tibial distribution. DP/PT pulses bounding. Dressing clear dry intact Calf nontender to palpation, no erythema, no edema. Negative Homans Assessment & Plan Assessment/Plan (1) Status post incision and drainage: PLAN: 1. Patient is 1 day status post incision and drainage of the left knee with attempted and aborted left total knee arthroplasty due to questionable infection. 2.Will continue PT today 2. Cultures are negative to date. Preliminary only. Dr. Balbuena is consulted patient began on vancomycin and ceftriaxone empirically at this time. 3. We will be awaiting finalized plan from Dr. Balbuena with antibiotics and follow-up plan. From orthopedic standpoint she is okay for discharge today versus tomorrow. 4. Patient will follow up for his post op appointment in [address] Leonel ambrocio. She is to call the office to make this appointment as she was previously scheduled for a LAN appointment and follow-up in 4 weeks with Bear Mendez PA-C. 5. WBC 9.6 no acute reactive leukocytosis 6. H/H 10.6/33.9: post operative anemia secondary to acute blood loss intraoperatively. Patient is asymptomatic at this time. No intraoperative complications. will continue to monitor. no acute interventions. 7. DVT prophylaxis : ASA twice daily x4 weeks 8. Pain control: patient instructed to take tylenol 500mg 2 tablets TID. and oxycodone 1-2 tablets every 4-6 hours only as needed for pain control. 9. Patient also given a prescription of meloxicam, Pepcid for ulcer prophylaxis 10. Again waiting finalize plan from Dr. Balbuena for discharge. At this time patient is okay from orthopedic standpoint for discharge today versus tomorrow. 11. Patient to continue PT as tolerated. Weightbearing as tolerated.
--- NOTE | 2021-05-27 12:54 | PCM.DC ---
Discharge Instructions Diet Discharge Diet: No restrictions Activity May shower in (days): 1 (Only if incision is dry and without drainage. Do not submerge underwater.) Ice area for (Minutes): 20 (Every 1-[address] barrier between skin and ice.) Weight Bearing Status: Weight bearing as tolerated Keep extremity elevated above heart level: Operative Extremity Additional Activity Instructions:: Follow [facility] postop instructions. Once postoperative dressing has been removed only use gentle soap and water over the incision. Do not use any ointments, Neosporin, salves, alcohol pads over the incision for 6 weeks postoperatively. Wear elastic BRUCE hose for 2 weeks. Do not use alcohol with narcotic pain medications. Dressing / Incision Call your doctor if your incision/area has: Continuous Slow Oozing, Sudden Increased Bleeding, Increased Pain/ Swelling, Increased Redness and Foul Smelling Discharge Call your doctor if you observe: Fever of 101 or Higher, Shortness of breath, Chest pain, Calf discomfort and Uncontrolled pain Remove Dressing in: 4 days Follow Up Care Test Results: Test results from this visit will be discussed in further detail at your follow-up appointment, if applicable. Discharge Plan Admission Admit Date/Time: 05/25/21 17:43 Attending Provider: Llait Charles Primary Care Provider: Duane Odom Consulting Providers: Gerald Balbuena Discharge Orders/Prescriptions Prescriptions: No Action lisinopril 10 mg tablet 10 mg PO DAILY Qty: 90 RF: 3 tizanidine 4 mg tablet 4 mg PO QHS PRN (Reason: MUSCLE RELAXER) RF: 0 omeprazole 20 MG capsule 20 mg PO DAILY RF: 0 fexofenadine 60 MG tablet 60 mg PO DAILY PRN (Reason: Allergies) RF: 0 ergocalciferol (vitamin D2) 50,000 UNIT capsule 50,000 unit PO Mejia@1000 RF: 0 tramadol 50 mg tablet 50 mg PO Q6H PRN PRN (Reason: Pain) RF: 0 hydroxychloroquine 200 mg tablet 200 mg PO BID RF: 0 ashwagandha root extract 300 mg Capsule 900 mg PO DAILY PRN (Reason: RELAXATION) RF: 0 Teresa Mueller 1 tab PO/SL DAILY RF: 0 acetaminophen 500 MG tablet 1,000 mg PO Q8 PRN (Reason: Pain) RF: 0 aspirin 81 MG tablet,chewable 81 mg PO DAILY RF: 0
[2021-05-27 14:00] VITALS: BP 151/73; PULSE 99; RESP 18; TEMP 37.3; O2SAT 97
--- NOTE | 2021-05-27 14:52 | PCM.PN.ID ---
Physical Exam Narrative Feeling ok but new itchy rash on lower abd and legs. No fever. Const alert General Appearance: cooperative Resp normal air movement and clear to auscultation bilaterally Cardio regular rate and regular rhythm GI normal to inspection, nondistended, normoactive bowel sounds Skin Rashes: rashes noted ID ID: Route of nutrition/ use of supplements: [] Nutritional Intake: [] IV Site: [] Vance Catheter: [] Assessment & Plan Assessment/Plan (1) Septic arthritis: PLAN: Suspected L knee septic arthritis seen in OR for planned L TKR 05/25/[address] Charles, replacement not done. Cxs neg so far, on empiric vanc/ceftriaxone. H/o RA, off meds since September or so. Has gotten covid shot. With new rash, will stop ceftriaxone. Plan for discharge if cxs remain neg would be 4 weeks po doxy 100mg bid. Knee inflammation may be more likely related to her RA than acute bacterial infection. Will follow
[2021-05-27 19:56] VITALS: BP 157/81; PULSE 102; RESP 18; TEMP 36.7; O2SAT 99
[2021-05-28 00:20] VITALS: BP 172/78; PULSE 92; RESP 18; TEMP 36.4; O2SAT 96
[2021-05-28] MEDS: oxyCODONE 5 MG Tablet PO ×2 (00:23→05:46)
[2021-05-28] MEDS: tiZANidine HCl 2 MG Tablet 4 MG PO (00:24)
[2021-05-28] MEDS: DiphenhydrAMINE 25 MG Capsule 50 MG PO ×2 (00:26→09:04)
[2021-05-28] MEDS: Acetaminophen 500 MG Tablet 1000 MG PO ×2 (05:47→14:19)
[2021-05-28 05:56] VITALS: BP 168/81; PULSE 80; RESP 18; TEMP 36.8; O2SAT 98
[2021-05-28 06:59] LABS: Hematocrit 30.6 % (37-47); Hemoglobin 9.3 g/dL (12.0-15.0); Mean Corp Hgb Conc 30.4 g/dL (32-36); Mean Corpuscular Hgb 27.5 pg (27.0-32.0); Mean Corpuscular Volume 90.5 fL (81-99); Mean Platelet Vol. 9.5 fl (6.2-12.0); Platelet Count 384 K/mm3 (150-450); RBC Distribution Width SD 42.7 fl (35.1-43.9); Red Blood Count 3.38 M/mm3 (4.2-5.4); White Blood Count 6.2 K/mm3 (4.4-11.0)
[2021-05-28 08:08] VITALS: BP 144/84; PULSE 107; RESP 16; TEMP 36.9; O2SAT 97
[2021-05-28 08:14] VITALS: PULSE 107
[2021-05-28] MEDS: Aspirin 81 MG TAB.CHEW PO (08:53)
[2021-05-28] MEDS: Hydroxychloroquine 200 MG Tablet PO (08:54)
[2021-05-28] MEDS: Pantoprazole Sodium 20 MG Tablet PO (08:54)
[2021-05-28] MEDS: 0.9% NaCl Peripheral Flush Adult/Peds IV (09:04)
[2021-05-28 13:45] VITALS: BP 141/76; PULSE 93; RESP 20; TEMP 36.7; O2SAT 97
--- NOTE | 2021-05-28 13:59 | PN.ORTHO_ITS ---
Subjective Subjective Patient is s/p I&D with of attempted left total knee arthroplasty with Dr. Charles. Patient resting comfortably in bed. Rates pain 5/ 10 at rest. With movement 5 /10. States taking oxycodone, Tylenol and ice help to relieve pain. Patient has been up with therapy. Walking with the assit of a walker. A febrile, no chest pain, shortness of breath, negative calf pain/ erythema, and no other signs of DVT. Patient has had improvement of rash since d/c ceftriaxone. Prelim cultures are negative to date. Patient was started on empiric Vanco and ceftriaxone d/c due to rash. Dr Balbuena is on board for consult ok for PO doxycycline x4 weeks, cx continue to be NGTD Objective Data Objective Data Vital Signs: Vital Signs Temp Pulse Resp BP Pulse Ox 98.1 F 93 20 H 141/76 H 97 05/28/21 13:45 05/28/21 13:45 05/28/21 13:45 05/28/21 13:45 05/28/21 13:45 Oxygen Delivery Method Room Air Weight: 93 kg Body Mass Index (BMI) 37.5 Intake & Output: Intake and Output for Last 24 Hours 05/26/21 05/27/21 05/28/21 23:59 23:59 23:59 Intake Total 3016.67 / 3016.67 1356 / 1356 650 / 650 Balance 3016.67 / 3016.67 1356 / 1356 650 / 650 Lab / Micro Data Result Diagrams: 05/28/21 06:05 05/26/21 06:05 Labs: Laboratory Results - last 24 hr 05/28/21 06:05: WBC 6.2, RBC 3.38 L, Hgb 9.3 L, Hct 30.6 L, MCV 90.5, MCH 27.5, MCHC 30.4 L, RDW Std Deviation 42.7, RDW Coeff of Daphne 13.0, Plt Count 384, MPV 9.5 Micro: Microbiology 05/25/21 Unknown Bone - Knee Gram Stain - Final 05/25/21 Unknown Bone - Knee Wound Culture - Preliminary No growth aerobically. 05/25/21 Unknown Bone - Knee Anaerobic Culture - Preliminary No growth in 48 hours. 05/25/21 14:24 Tissue - Knee Gram Stain - Final 05/25/21 14:24 Tissue - Knee Wound Culture - Preliminary No growth aerobically. 05/25/21 14:24 Tissue - Knee Anaerobic Culture - Preliminary No growth in 48 hours. 05/13/21 14:32 Swab (Method) Nasal Screen MRSA/MSSA - Final Physical Exam Narrative Patient resting comfortably in bed No signs of acute distress Satting well on room air Patient has had improvement of rash on the lower left abdomen and upper left pelvic region as well as the gluteal region. It is itchy warm to touch. Limb is warm to touch, Sensation intact throughout entire lower extremity, including saphenous, sural, superficial and deep peroneal, and tibial distribution. DP/PT pulses bounding. Dressing clear dry intact Calf nontender to palpation, no erythema, no edema. Negative Homans Assessment & Plan Assessment/Plan (1) Status post incision and drainage: PLAN: Status post incision and drainage: PLAN: 1. Patient is day 2 status post incision and drainage of the left knee with attempted and aborted left total knee arthroplasty due to questionable infection. 2.Will continue PT today 2. Cultures are negative to date. Preliminary only. Dr. Balbuena recommends PO doxycycline x4 weeks pending cx remain negative. 4. Patient will follow up for his post op appointment in [address] Charles. She is to call the office to make this appointment as she was prev iously scheduled for a LAN appointment and follow-up in 4 weeks with Bear Mendez PA-C. 5. no acute reactive leukocytosis 6. H/H 9.3/30.6: post operative anemia secondary to acute blood loss intraopera tively. Patient is asymptomatic at this time. No intraoperative complications. will continue to monitor. no acute interventions. 7. DVT prophylaxis : ASA twice daily x4 weeks 8. Pain control: patient instructed to take tylenol 500mg 2 tablets TID. and oxycodone 1-2 tablets every 4-6 hours only as needed for pain control. 9. Patient also given a prescription of meloxicam, Pepcid for ulcer prophylaxis 10. ok for discharge today 11. Patient to continue PT as tolerated. Weightbearing as tolerated. (2) Septic arthritis:
== END 2021-05-28 15:15 | disposition home or self-care (01) | DRG 479 ==
LOC: SDC 18:20 → MS3 18:21
PROVIDERS: Anesthesiology; Internal Medicine Infectious Disease; Admitting Provider Orthopaedic Surgery; PCP Family Medicine; Referring Provider Orthopaedic Surgery; Visit Provider Orthopaedic Surgery
PROC: 0SRD0JZ Replacement of Left Knee Joint with Synthetic Substitute, Open Approach (ICD-10-PCS; CPT 27447; principal; 2021-05-25 12:25)
DX: M00.9 Pyogenic arthritis, unspecified (principal); M06.9 Rheumatoid arthritis, unspecified; I25.10 Atherosclerotic heart disease of native coronary artery without angina pectoris; I10 Essential (primary) hypertension; M79.7 Fibromyalgia; E78.00 Pure hypercholesterolemia, unspecified; M81.0 Age-related osteoporosis without current pathological fracture; J30.9 Allergic rhinitis, unspecified; G47.30 Sleep apnea, unspecified; K21.9 Gastro-esophageal reflux disease without esophagitis; F32.9 Major depressive disorder, single episode, unspecified; E66.9 Obesity, unspecified; Z68.37 Body mass index [BMI] 37.0-37.9, adult; Z79.82 Long term (current) use of aspirin; Z79.899 Other long term (current) drug therapy; I25.2 Old myocardial infarction; Z87.891 Personal history of nicotine dependence; Z95.5 Presence of coronary angioplasty implant and graft; Z96.651 Presence of right artificial knee joint
CPT/HCPCS: 36415; 80048; 80202; 82962; 83735; 85027; 87070; 87075; 87081; 87176; 87205; 88305; 88312; 88331; 97110; 97162; 97166; 97530; 97535; 99251; J7040; J7120; A4216; G0463; J0696; J2405

== ENCOUNTER 2021-06-26 15:46 | Observation (INO) | payer MEDICARE, MEDICAID, SELFPAY ==
[2021-06-23 14:59] LABS: Hemoglobin 11.3 g/dL (12.0-15.0); Mean Corp Hgb Conc 31.4 g/dL (32-36); Mean Corpuscular Hgb 27.8 pg (27.0-32.0); Mean Corpuscular Volume 88.5 fL (81-99); Mean Platelet Vol. 9.6 fl (6.2-12.0); Platelet Count 439 K/mm3 (150-450); RBC Distribution Width CV 13.3 % (11.6-14.6); RBC Distribution Width SD 42.9 fl (35.1-43.9); Red Blood Count 4.07 M/mm3 (4.2-5.4); White Blood Count 7.1 K/mm3 (4.4-11.0)
[2021-06-23 15:36] LABS: Anion Gap 7 (5-15); BUN 17 mg/dL (7-18); BUN/Creat Ratio 21.5 RATIO (10-20); Calcium,Total 9.3 mg/dL (8.5-10.1); Chloride 104 mmol/L (98-107); Creatinine, Serum 0.79 mg/dL (0.55-1.02); EST Glomerular Filtration Rate 78 mL/min (>60); Est Glom Filt Rate - Afr Amer 95 mL/min (>60); Glucose 84 mg/dL (74-106); Potassium 3.6 mmol/L (3.5-5.1); Sodium Level 140 mmol/L (136-145)
[2021-06-23 15:38] LABS: Magnesium 1.9 mg/dL (1.6-2.6)
[2021-06-26] VITALS (15 sets, daily range): BP systolic 130–155; BP diastolic 73–92; PULSE 88–108; RESP 16–18; TEMP 36.1–37.2; O2SAT 94–100; BMI 37.6; BMI 38.7
[2021-06-26] MEDS: Lactated Ringers 1,000 ML 125 ML IV ×4 (07:55→21:33)
[2021-06-26] MEDS: Gabapentin 600 MG Tablet PO (08:22)
[2021-06-26] MEDS: Acetaminophen 500 MG Tablet 1000 MG PO ×2 (08:22→21:27)
--- NOTE | 2021-06-26 09:15 | KNEE_PTH ---
PATIENT: FRANCIE MORENO LOC: MS3 U#:[id number] AGE/SX: 61/F ROOM: MS310 RE06/26/[address]: Dr. Lalit Charles DO : 1960 BED: 1 DIS: 06/29/2021 SPEC #: [id number] RECD: 06/26/21 13:04 STATUS: SHAAN TAMRA #: [id number] KAYLA: 06/26/21 09:[address]: Lalit Charles DEPT: SURGICAL PATHOLOGY RECD BY: Mervat Jansen ENTERED: 06/26/21 13:24 SP TYPE: TOTAL KNEE OTHR DR: Dr. Dimitry Odom MD Tissues: Knee, NOS Procedures: Decalcification bone/plaque Surgery Specimen Level IV HEADER OPERATION: ERAS, total knee replacement robotic arm assist PRE-OP DIAGNOSIS: Osteoarthritis left knee TISSUE SUBMITTED: Bone and soft tissue left knee MICROSCOPIC DIAGNOSIS Bone and tissue of left knee, total knee resection: Severe degenerative joint disease. Mild synovial hyperplasia. AM:scott 07/01/2021 MICROSCOPIC DESCRIPTION Slides are reviewed. GROSS DESCRIPTION Received is one container designated bone and soft tissue left knee. The specimen consists of multiple fragments of castillo-yellow bone measuring in aggregate 9 x 9 x 4 cm. Also in the specimen container are multiple fragments of yellow-white soft tissue measuring in aggregate 9 x 8 x 3 cm. A number of bony fragments contain articular surfaces consistent with tibial plateau and femoral condyle and displaying prominent osteophyte formation, eburnation, and bone erosion. Registered Medical Transcriptionist sections are submitted in three cassettes as follows: 1 - soft tissue, 2-3 - bone after decalcification. / SJ:scott 06/26/21 TC:5 [facility]: [id number], [id number]
--- NOTE | 2021-06-26 10:05 | RAD_ITS ---
STUDY: X-RAY - LEFT KNEE REASON FOR EXAM: Postoperative evaluation of left total knee arthroplasty. TECHNIQUE: 2 view(s) of the knee. COMPARISON: Radiographs 04/12/2019. FINDINGS: There is a left total knee arthroplasty without evidence of complication. There is postoperative gas in the soft tissues and overlying skin reynaldo. RAD/Knee 1 or 2 Views IMPRESSION: Uncomplicated left total knee arthroplasty. Electronically Signed: Iglesia Tripp MD at 13:40 EDT Tel , Service support ,
[2021-06-26] MEDS: Cefazolin 2 GM in 0.9% Normal Saline 100 ML IV (10:16)
--- NOTE | 2021-06-26 12:03 | OP.PCM_ITS ---
Report of Operation Date of Procedure: 06/26/21 Pre-Operative Diagnosis: Rheumatoid arthritis left knee Post-Operative Diagnosis: same Surgery/Procedure Performed:: Left TKR Description of Surgical Findings:: Report of Operation Date of Procedure: Preoperative Diagnosis: [left ] knee rheumatoid arthritis Postoperative Diagnosis: [ left ] knee rheumatoid arthritis Operation: Robotic Assisted Knee Total Arthroplasty, [left ] knee Surgeon: Dr Lalit Charles DO Java Flex Developer: Oleg Mendez PA-C Anesthesia: spinal Anesthesiologist: Ramirez Martinez M.D. Findings: Stable knee with good patella tracking Specimen(s): Bony cuts Complications: No intraoperative complications Estimated Blood Loss: 30 cc IV Fluids: 1000 cc crystalloid Implants Used: 1. Sagar Triathlon size 1 cemented CR femur 2. [place] Triathlon size 1 tibia 3. 29 mm patella 4. 9 mm CS polyethylene Brief History Operative Indications: [ (61 y/o female) ] with history of [ left ] knee rheumatoid and osteoarthrosis with radiographic findings with loss of joint space, osteophyte formation and subchondral sclerosis. Failed conservative measures as mentioned in the H&P. Discussion of total knee arthroplasty as well as risk and benefits were discussed with the patient including but not limited to blood loss, DVTs, PEs, neurovascular damage, general risk of anesthesia including loss of life, and stiffness or instability were also discussed with the patient. Patient demonstrated understanding and was able to sign informed consent. Procedure: On the date of procedure, patient's [left ] lower extremity was marked in the preoperative area. The patient was then taken back to the operating room where that patient was placed on the table in the supine position. All bony prominences were identified and well-padded. Anesthesia assumed control of the C-spine and airway throughout the remainder of the procedure. A tourniquet was placed on the [ left ] upper thigh and the leg was prepped in a sterile fashion. The surgeon then scrubbed at this time. Upon reentering the room, the [ left ] lower extremity was draped in a standard orthopedic fashion. A time out was then called and everyone agreed upon the side, the site, the procedure to be performed, patient's identity and antibiotics given. Esmarch bandage was used to exsanguinate the extremity and the tourniquet was placed up to 250 mmHg with the knee in flexion. A midline skin incision was made and a sharp dissection was taken down through skin, subcutaneous tissue and fat. The standard medial parapatellar incision was made and the patella was subluxed laterally. An appropriate deep MCL release was done and the fat pad was resected. Our attention was then directed to the patella. The patella was everted and a flat resection was made. The knee was then flexed up and 2 femoral pins were placed inside the incision and 2 tibial pins were placed outside the incision in the medial tibia bicortically. Once this was completed, the 2 checkpoints in the femur and tibia were placed. Knee was then flexed up and the bony landmarks were registered. Once the was completed, the knee taken through range of motion and manually stressed allowing us to plan for an appropriate tibial cut. The robotic arm was brought into the field sterilely and checkpoint and saw were registered. Based on the patient's deformity, the tibial cut was made in [2 degrees varus ]. At this time, the tensioner was then placed in the joint and ligament tension was checked at 90 degrees and full extension. Based on the patient's ligamentous tension, appropriate adjustments were made to the operative plan and ligament releases were done. Once we were happy with our operative plan with balanced flexion and extension gaps, our attention was directed to the femur. The robot was brought into the field sterilely and registered. Posterior condylar cuts, anterior chamfer cuts and anterior cuts were appropriately made for a [ size 1 ] femur. When these were completed, the saws were switched out in the distal femoral and posterior chamfer cuts were made. Protecting the soft tissue throughout this time. A [size 1 ] base plate was selected. The knee was flexed to 90 degrees and soft tissues and posterior osteophytes were removed from the joint. 40 cc of the periarticular injection was injected into the posterior medial corner of the joint. The appropriate trials were then placed on the femur and tibia. A trial polyethylene was trialed to ensure proper balancing and stability of the knee. The appropriate tibial internal rotation was then marked with a bovie. An extensive synovectomy was performed with the bovie. A larger amount of rheumatoid synovitis was resected. Our attention was then directed to the patella. The lug holes were drilled and the patella trial was placed. Patellar tracking was checked and deemed appropriate. Once we were happy, lug holes were drilled for the femur and trial components were removed. The tibia was subluxed and pinned into place and the keel was punched and drilled appropriately. Final components were verified and opened. The wound was copiously irrigated with normal saline. Cement was mixed under 3rd generation technique and applied in sequence to the dry surfaces of the tibia, the femur and the patella. The components were impacted into place with the tibia, femur and finally the patella. The trial poly component was placed and the knee was placed in full extension. The tracking, alignment and balance were verified and a [9 mm CS ] polyethylene component was placed. Once the final components were placed an Irrisept lavage was performed and the wound was copiously irrigated with normal saline solution and the periarticular injection was given. the wound was closed in a layer-paul fashion using #1 vicryl interrupted sutures for the arthrotomy, 2-0 interrupted vicryl suture for the subcuticular layer and reynaldo for final skin closure. A sterile compressive dressing was then placed. The patient was then awakened from anesthesia, transferred to the [facility] and transferred to the PACU for recovery. My physician corporate legal assistant was a vital part of this case. He was important in appropriate retraction during the case, and protection of soft tissues during bony cuts. His intimate knowledge of the case and my steps aided in safe and expedient completion of the procedure as well as appropriate position of the leg during the case. He was also vital in assisting with closure under my direct supervision. Due to the complexity of this case, robotic arm was used to assist in the surgery to improve accuracy and clinical outcomes. Post-op Plan: DVT ppx; ASA 81 mg BID, thigh high compression stockings Follow up: in office in 2 weeks for wound check PT: to start POD #0 at hospital, outpatient PT should be arranged. Preoperative antibiotic: Ancef 2 grams IV Lalit Charles DO Surgeon: Lalit Charles talent development consultant: Oleg Mendez Type of Anesthesia: Spinal Anesthesiologist: Ramirez Martinez Specimen's removed: bone Estimated Blood Loss (mL): 30 cc Fluids Replaced: 1000 cc crystalloid Admit VTE Documentation VTE Present on Admission: No VTE Mechan Device Prophylaxis: SCD's and Knee High BRUCE Hose VTE Pharm Prophylaxis ordered?: Yes
[2021-06-26] MEDS: Lactated Ringers 1,000 ML 999 ML IV (13:00)
[2021-06-26] MEDS: oxyCODONE 5 MG Tablet PO ×3 (16:08→23:44)
[2021-06-26] MEDS: Aspirin 81 MG TAB.CHEW PO (17:40)
[2021-06-26] MEDS: Cefazolin 1 GM/50 ML BAG IV (17:40)
[2021-06-26] MEDS: tiZANidine HCl 2 MG Tablet 4 MG PO (21:26)
[2021-06-26] MEDS: Senna/Docusate Sodium 1 Tablet 2 TABLET PO (21:27)
[2021-06-26] MEDS: Hydroxychloroquine 200 MG Tablet PO (21:28)
[2021-06-27] MEDS: Cefazolin 1 GM/50 ML BAG IV (02:49)
[2021-06-27 02:52] VITALS: BP 129/78; PULSE 72; RESP 18; TEMP 36.7; O2SAT 96
[2021-06-27] MEDS: oxyCODONE 5 MG Tablet PO ×3 (03:53→13:19)
[2021-06-27] MEDS: 0.9% Saline Lock 10 ML Syringe IV ×2 (03:57→22:31)
[2021-06-27] MEDS: Acetaminophen 500 MG Tablet 1000 MG PO ×3 (06:25→22:29)
[2021-06-27 07:33] VITALS: PULSE 90
[2021-06-27 08:35] LABS: Hematocrit 29.3 % (37-47); Hemoglobin 9.1 g/dL (12.0-15.0); Mean Corp Hgb Conc 31.1 g/dL (32-36); Mean Corpuscular Hgb 27.5 pg (27.0-32.0); Mean Corpuscular Volume 88.5 fL (81-99); Mean Platelet Vol. 10.3 fl (6.2-12.0); Platelet Count 374 K/mm3 (150-450); RBC Distribution Width CV 13.5 % (11.6-14.6); RBC Distribution Width SD 43.8 fl (35.1-43.9); Red Blood Count 3.31 M/mm3 (4.2-5.4); White Blood Count 10.6 K/mm3 (4.4-11.0)
[2021-06-27 08:46] LABS: Anion Gap 6 (5-15); BUN 11 mg/dL (7-18); Calcium,Total 8.8 mg/dL (8.5-10.1); Chloride 105 mmol/L (98-107); Creatinine, Serum 0.58 mg/dL (0.55-1.02); EST Glomerular Filtration Rate 112 mL/min (>60); Est Glom Filt Rate - Afr Amer 136 mL/min (>60); Estimated Creatinine Clearance 79.54 ml/min; Glucose 107 mg/dL (74-106); Potassium 4.1 mmol/L (3.5-5.1); Sodium Level 140 mmol/L (136-145)
--- NOTE | 2021-06-27 08:58 | PCS.PANDOC ---
PANDEMIC DOCUMENTATION INITIATED: Date: 04/20/2021 Time: 190
--- NOTE | 2021-06-27 10:00 | CASEMGMT ---
Per Bear ORTA, pt now wants to go to TCU at discharge and states unable to go home. Selma SHETH aware, voices understanding. Pt was scheduled to have OP therapy at [facility]. Ryan BENAVIDES CM
[2021-06-27 10:07] VITALS: BP 149/84; PULSE 96; RESP 18; TEMP 37; O2SAT 97
--- NOTE | 2021-06-27 10:11 | PCM.PN.ORT ---
Subjective Subjective Patient sitting at bedside. Patient just completed working with physical therapy. Patient reports pain is well-managed. Patient denies chest pain, shortness of breath, calf pain. Patient states that she feels she is not able to go home as she has steps in her home. Patient would like to be placed into an extended care facility for her postop rehab. Patient also reports that she does not have transportation to and from outpatient therapy Objective Data Objective Data Vital Signs: Vital Signs Temp Pulse Resp BP Pulse Ox 98.6 F 96 18 149/84 H 97 06/27/21 10:07 06/27/21 10:07 06/27/21 10:07 06/27/21 10:07 06/27/21 10:07 Oxygen Flow Rate (L/min) 2 Oxygen Delivery Method Room Air Weight: 96.1 kg Body Mass Index (BMI) 38.7 Intake & Output: Intake and Output for Last 24 Hours 06/25/21 06/26/21 06/27/21 23:59 23:59 23:59 Intake Total 3751.25 / 3751.25 1587.5 / 1587.5 Balance 3751.25 / 3751.25 1587.5 / 1587.5 Lab / Micro Data Result Diagrams: 06/27/21 07:30 06/27/21 07:30 Labs: Laboratory Results - last 24 hr 06/27/21 07:30: WBC 10.6, RBC 3.31 L, Hgb 9.1 L, Hct 29.3 L, MCV 88.5, MCH 27.5, MCHC 31.1 L, RDW Std Deviation 43.8, RDW Coeff of Daphne 13.5, Plt Count 374, MPV 10.3 06/27/21 07:30: Sodium 140, Potassium 4.1, Chloride 105, Carbon Dioxide 29.0, Anion Gap 6, BUN 11, Creatinine 0.58, Estim Creat Clear Calc 79.54, Est GFR (MDRD) Af Amer 136, Est GFR (MDRD) Non-Af 112, BUN/Creatinine Ratio 19.0, Glucose 107 H, Calcium 8.8 Micro: Microbiology 06/23/21 13:36 Swab (Method) Nasal Screen MRSA/MSSA - Final Radiography Diagnostic Testing: Radiology Impression Knee X-Ray 06/26/21 10:05 IMPRESSION: Uncomplicated left total knee arthroplasty. Electronically Signed: Iglesia Tripp MD at 13:40 EDT Tel , Service support , Physical Exam Narrative Dressing was clean dry intact. Negative signs and symptoms of DVT. Patient is in no respiratory distress, speaking in full sentences. Vital signs labs reviewed noted medical record Const alert and oriented x3 HEENT moist oral mucous membranes Resp normal respiratory effort Effort and Inspection: able to speak in complete sentences Neuro CN's II-XII intact bilaterally Psych affect normal Assessment & Plan Assessment/Plan (1) Status post total left knee replacement: PLAN: 1. Continue all pain medications as prescribed 2. Continue physical therapy, weight-bear as tolerated with walker 3. Aspirin 81 mg 1 p.o. every 12 hours x30 days for postop DVT prophylaxis 4. Encourage incentive spirometry 5. Consult case management for possible placement to ECF 6. Possible discharge to ECF on Tuesday
[2021-06-27] MEDS: Senna/Docusate Sodium 1 Tablet 2 TABLET PO ×2 (10:42→22:30)
[2021-06-27] MEDS: Lisinopril 10 MG Tablet PO (10:43)
[2021-06-27] MEDS: Aspirin 81 MG TAB.CHEW PO (10:43)
[2021-06-27] MEDS: Pantoprazole Sodium 20 MG Tablet PO (10:43)
[2021-06-27] MEDS: Hydroxychloroquine 200 MG Tablet PO ×2 (10:44→22:28)
--- NOTE | 2021-06-27 13:30 | CM.UR ---
This RN HENRIETTA to room with MUÑOZ form, explanation done-pt voices understanding, and signs MUÑOZ form. Original to chart and copy to pt. Pt voices no further questions/concerns/needs. SStaten MAKAYLA CM
--- NOTE | 2021-06-27 14:43 | CASEMGMT ---
Addendum entered by Selma Chi 06/27/21 20:22: MERYL updated patient that TCU/RU admissions will review on Tuesday. Patient said that she also, as an option, would include [facility] as a friend's daughter works in admission. SW asked patient her preference regarding the SNF/RU options and she said she has no preference just whichever will take me. Plan: SNF at discharge, if insurance covers. MERYL explained to patient that insurance will need to approve placement at SNF/RU and she verbalized understanding. Selma LANGSTON Original Note: MERYL Note Referral Source: MAKAYLA SHRESTHA Referral Reason: Possible SNF at discharge for Rehab Patient was tearful. Said that her other knee replacement was not like this one. Reports that she has steps into the house and her daughter, who she lives with is working and not able to provide transportation or assistance during the day. Patient said that she tried to call [facility] and TCU but they said that they could not review patient's chart till after she had surgery. Patient said that she has no transportation to [facility]. SW discussed her insurance providing transportation as well as the hospital van and patient said but they are not dependable. Patient said that the only place I ever go is to the doctor and I drive myself to the doctor and then have them bring a wheelchair out to get me and take me inside. Patient said that she would like to go to [facility] or [facility] for [facility] following discharge. MERYL texted Shyann from RU/TCU and she was provided information on patient's insurance and reason for placement. MERYL was advised to sent a email to Shyann providing her with the information and she will work patient up on Tuesday. MERYL sent email to Shyann Plan: TCU referral
--- NOTE | 2021-06-27 15:01 | NURSING ---
1330 spoke with Bari BENAVIDES, telegraphic instrument supervisor, that Dr Charles ordered doppler study for today, states it won't happen today, they are here only until 1300.
[2021-06-27] MEDS: Ketorolac 15 MG/ML Vial IV ×2 (15:48→22:30)
[2021-06-27 15:51] VITALS: BP 151/74; PULSE 100; RESP 16; TEMP 36.9; O2SAT 98
[2021-06-27] MEDS: Rivaroxaban 10 MG Tablet PO (17:07)
[2021-06-27 22:27] VITALS: BP 135/78; PULSE 112; RESP 20; TEMP 36.8; O2SAT 97
[2021-06-27] MEDS: tiZANidine HCl 2 MG Tablet 4 MG PO (22:28)
[2021-06-28] VITALS (7 sets, daily range): BP systolic 118–142; BP diastolic 70–73; PULSE 85–115; RESP 18–20; TEMP 36.4–37.3; O2SAT 94–98
[2021-06-28] MEDS: Ketorolac 15 MG/ML Vial IV ×2 (04:45→14:44)
[2021-06-28] MEDS: Acetaminophen 500 MG Tablet 1000 MG PO ×3 (04:46→21:02)
[2021-06-28] MEDS: 0.9% Saline Lock 10 ML Syringe IV ×2 (04:58→14:44)
--- NOTE | 2021-06-28 07:41 | VDLE_ITS ---
Reason For Study: pain Procedure LEFT This is a venous duplex using B-mode, color GSV is normal. flow and spectral Doppler. CFV is compressible, spontaneous, phasic, Exam performed portable in patient room. competent, and demonstrates normal The exam was abbreviated due to the COVID 19 augmentation. protocol. FV is compressible, spontaneous, phasic, The exam was diagnostic. competent and demonstrates normal A preliminary report was called and/or faxed augmentation. to the pt's RN. POP V is compressible, spontaneous, phasic, competent and demonstrates normal augmentation. T/P Trunk is compressible. PTV is compressible. LT PerV is compressible. Hypoechoic area behind the knee measuring .89 x 2.42 cm. Area is nonvascular. VL/Venous Duplex US, Unilateral Interpretation Summary There is no evidence of left lower extremity deep vein thrombosis. Left great s aphenous vein appears patent and compressible segmentally. Hypoechoic nonvascular left popliteal spac e 0.89 x 2.42 cm structure consistent with a Bakers cyst. Clinical correlation would be appropri ate. Abbreviated COVID-19 protocol utilized Ordering Physician: Lalit Charles Performed By: Marques Dove RVT
[2021-06-28] MEDS: oxyCODONE 5 MG Tablet PO ×2 (09:09→21:02)
[2021-06-28] MEDS: Pantoprazole Sodium 20 MG Tablet PO (09:11)
[2021-06-28] MEDS: Hydroxychloroquine 200 MG Tablet PO ×2 (09:11→21:03)
[2021-06-28] MEDS: Lisinopril 10 MG Tablet PO (09:12)
[2021-06-28] MEDS: Ergocalciferol 1.25 MG (50, 000 UNIT) Capsule PO (09:12)
--- NOTE | 2021-06-28 09:38 | PCM.PN.ORT ---
Subjective Subjective Patient reports calf pain with ambulation. Otherwise, very little incisional pain. Denies fevers, chills, nausea or vomiting. Objective Data Objective Data Vital Signs: Vital Signs Temp Pulse Resp BP Pulse Ox 97.5 F L 85 20 H 139/70 H 95 06/28/21 04:38 06/28/21 09:15 06/28/21 09:15 06/28/21 04:38 06/28/21 09:15 Oxygen Flow Rate (L/min) 2 Oxygen Delivery Method Room Air Weight: 211 lb 13.828 oz Body Mass Index (BMI) 38.7 Intake & Output: Intake and Output for Last 24 Hours 06/26/21 06/27/21 06/28/21 23:59 23:59 23:59 Intake Total 3751.25 / 3751.25 1587.5 / 1587.5 Balance 3751.25 / 3751.25 1587.5 / 1587.5 Lab / Micro Data Result Diagrams: 06/27/21 07:30 06/27/21 07:30 Micro: Microbiology 06/23/21 13:36 Swab (Method) Nasal Screen MRSA/MSSA - Final Physical Exam Const alert, oriented x3 and no apparent distress General Appearance: cooperative Neck supple and no JVD Resp normal respiratory effort, no use of accessory muscles and clear to auscultation bilaterally Effort and Inspection: able to speak in complete sentences Cardio regular rate and regular rhythm GI normal to inspection, nondistended, normoactive bowel sounds Extremity normal capillary refill and no clubbing, cyanosis or edema Right Lower Extremity: knee joint inspection (Incision C/D/I/ Positive Eva's sign with calf pain to palpation but no significant swelling) Assessment & Plan Assessment/Plan (1) Status post total left knee replacement: PLAN: Doppler ultrasound to r/o DVT Switch to Xarelto for DVT prophylaxis Continue BRUCE hose and SCDs Encourage ambulation Patient wishes to go to extended care facility due to pain and lack of transportation for PT Will continue to work with case management for placement Probable d/c tomorrow pending results of doppler Post-op xray of left knee reviewed and satisfactory
[2021-06-28] MEDS: Rivaroxaban 10 MG Tablet PO (16:46)
[2021-06-28] MEDS: tiZANidine HCl 2 MG Tablet 4 MG PO (21:03)
[2021-06-29 03:23] VITALS: BP 125/67; PULSE 75; RESP 16; TEMP 36.2; O2SAT 97
[2021-06-29] MEDS: oxyCODONE 5 MG Tablet PO ×2 (05:11→10:40)
[2021-06-29] MEDS: Acetaminophen 500 MG Tablet 1000 MG PO ×2 (05:11→14:17)
[2021-06-29 10:30] VITALS: BP 123/61; PULSE 88; RESP 16; TEMP 36.8; O2SAT 97
[2021-06-29] MEDS: Hydroxychloroquine 200 MG Tablet PO (10:40)
[2021-06-29] MEDS: Lisinopril 10 MG Tablet PO (10:40)
[2021-06-29] MEDS: Pantoprazole Sodium 20 MG Tablet PO (10:40)
--- NOTE | 2021-06-29 10:47 | CASEMGMT ---
Addendum entered by Shea Vieyra 06/29/21 13:01: SW updated PA that pt can discharge to TCU today. Discharge is in for today. MERYL placed a call to Shyann with TCU and updated her that pt to discharge to TCU today. Plan: TCU today Shea MOHR, [place] Original Note: Social Work Note SW placed a call to Shyann with TCU. TCU is able to accept pt, pre-certs are being waived. SW updated Shyann with TCU that pt should be medically ready for discharge today. SW in to speak with pt. SW introduced self and role at [facility]. SW updated that TCU is able to accept pt and pt will likely discharge today to TCU. Pt states understanding. SW placed transfer to extended care document on pt's chart. 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
--- NOTE | 2021-06-29 11:50 | PCM.PN.ORT ---
Subjective Subjective Patient sitting at bedside in a chair. Patient states she just finished therapy. Patient states pain is well-managed. Patient feels her calf pain has improved considerably. Patient denies chest pain, shortness of breath, calf pain, nausea vomiting. Patient states she is ready for discharge to TCU to continue with her postop rehab. Objective Data Objective Data Vital Signs: Vital Signs Temp Pulse Resp BP Pulse Ox 98.3 F 88 16 123/61 H 97 06/29/21 10:30 06/29/21 10:30 06/29/21 10:30 06/29/21 10:30 06/29/21 10:30 Oxygen Flow Rate (L/min) 2 Oxygen Delivery Method Room Air Weight: 96.1 kg Body Mass Index (BMI) 38.7 Intake & Output: Intake and Output for Last 24 Hours 06/27/21 06/28/21 06/29/21 23:59 23:59 23:59 Intake Total 1587.5 / 1587.5 1260 / 1260 100 / 100 Output Total 200 / 200 Balance 1587.5 / 1587.5 1060 / 1060 100 / 100 Lab / Micro Data Result Diagrams: 06/27/21 07:30 06/27/21 07:30 Micro: Microbiology 06/23/21 13:36 Swab (Method) Nasal Screen MRSA/MSSA - Final Radiography Diagnostic Testing: Radiology Impression Venous Doppler Study 06/28/21 07:41 Interpretation Summary There is no evidence of left lower extremity deep vein thrombosis. Left great saphenous vein appears patent and compressible segmentally. Hypoechoic nonvascular left popliteal space 0.89 x 2.42 cm structure consistent with a Bakers cyst. Clinical correlation would be appropriate. Abbreviated COVID-19 protocol utilized Ordering Physician: Lalit Charles Performed By: Marques Dove RVT Physical Exam Narrative Patient sitting comfortably at bedside. Patient in no respiratory distress, speaking in full sentences. Patient's dressing is clean dry intact. Neurovascular she is otherwise intact to lower extremities. Patient's vitals and labs reviewed noted medical record. Patient is afebrile. Assessment & Plan Assessment/Plan (1) Status post total left knee replacement: PLAN: 1. Continue all pain medications as prescribed 2. Continue Xarelto 10 mg 1 p.o. daily x30 days for postop DVT prophylaxis 3. Continue physical therapy weight-bear as tolerated with walker 4. Encourage incentive spirometry 5. Continue BRUCE hose during the day off at night 6. Continue ice 7. Nogal removed on 07/10/2021 8. Dressing change 07/03/2021 9. Shower 06/30/2021 10. Follow-up as directed, see pink sheet 11. Discharge today to [facility] TCU
--- NOTE | 2021-06-29 12:02 | PCM.DC ---
Discharge Instructions Diet Discharge Diet: No restrictions Activity Discharge Activity: May Not Drive, May Shower and Use Walker May shower in (days): 3 Ice area for (Minutes): 20 (every hour while awake.) Weight Bearing Status: Weight bearing as tolerated Keep extremity elevated above heart level: Operative Extremity Dressing / Incision Call your doctor if your incision/area has: Continuous Slow Oozing, Sudden Increased Bleeding, Increased Pain/ Swelling, Increased Redness and Foul Smelling Discharge Call your doctor if you observe: Fever of 101 or Higher, Coldness, Increased Pain (in extremity), Numbness or Tingling, Change in Color, Calf discomfort and Uncontrolled pain Change Dressing in: do not change dressing Remove Dressing in: 1 week Cleanse incision/area with: Soap & Water Follow Up Care Please Follow Up With: Oleg Mendez PA-C When: As scheduled (see pink sheet) Test Results: Test results from this visit will be discussed in further detail at your follow-up appointment, if applicable. Discharge Plan Admission Admit Date/Time: 06/26/21 15:46 Primary Reason for Your Visit: Left total knee replacement Attending Provider: Lalit Charles Primary Care Provider: Duane Odom Discharge Orders/Prescriptions Prescriptions: New acetaminophen 500 mg Tablet 1,000 mg PO Q8 Qty: 90 RF: 0 oxycodone 5 mg Tablet 5 - 10 mg PO Q4H PRN PRN (Reason: Pain Score 4-10) 7 Days Qty: 84 RF: 0 Xarelto 10 mg Tablet 10 mg PO DINNER Qty: 14 RF: 0 sennosides-docusate sodium [Stool Softener-Stimulant Laxat] 8.6-50 mg Tablet 2 tab PO BID Qty: 20 RF: 0 Continued tizanidine 4 mg tablet 4 mg PO QHS RF: 0 omeprazole 20 MG capsule 20 mg PO DAILY RF: 0 fexofenadine 60 MG tablet 60 mg PO DAILY PRN (Reason: Allergies) RF: 0 ergocalciferol (vitamin D2) 50,000 UNIT capsule 50,000 unit PO Mejia@1000 RF: 0 hydroxychloroquine 200 mg tablet 200 mg PO BID RF: 0 ashwagandha root extract 300 mg Capsule 900 mg PO DAILY PRN (Reason: RELAXATION) RF: 0 acetaminophen 500 mg Tablet 1,000 mg PO Q8 PRN (Reason: Pain) Qty: 90 RF: 0 lisinopril 10 mg tablet 10 mg PO DAILY Qty: 90 RF: 3 Discontinued aspirin 81 MG tablet,chewable 81 mg PO DAILY RF: 0 Hold Instructions: Resume on 06/24/21. Referrals / Follow Up: Duane Odom MD [Primary Care Provider] -
[2021-06-29 14:12] VITALS: BP 124/70; PULSE 99; RESP 16; TEMP 36.7; O2SAT 97
--- NOTE | 2021-07-10 11:51 | PCM.DC.SUM ---
Providers Date of Admission: 06/26/21 Primary Care Physician: Dr. Duane Odom MD Reason For Visit: LT TOTAL KNEE W ENA Diagnosis Discharge Diagnosis (1) Status post total left knee replacement: Status: Acute Code(s): Z96.652 - Presence of left artificial knee joint Medications at Discharge Home Medications omeprazole 20 mg PO DAILY 05/19/18 fexofenadine 60 mg PO DAILY PRN 06/11/20 tizanidine 4 mg tablet 4 mg PO QHS tab 07/07/20 ashwagandha root extract 900 mg PO DAILY PRN 05/07/21 hydroxychloroquine 200 mg PO BID 05/07/21 acetaminophen 1,000 mg PO Q8 PRN #90 tab 05/27/21 acetaminophen 1,000 mg PO Q8 06/29/21 ergocalciferol (vitamin D2) 50,000 unit PO Mejia@1000 06/29/21 lisinopril 10 mg PO DAILY 06/29/21 Xarelto 10 mg PO DINNER 17 Days #17 tab 07/07/21 oxycodone 5 - 10 mg PO Q4H PRN PRN 7 Days #84 tab 07/07/21 sennosides-docusate sodium [Stool Softener-Stimulant Laxat] 2 tab PO BID 30 Days #120 tab 07/07/21 Hospital Course Operations total knee replacement Procedures None Summary of Care Provided Minutes Spent on Discharge: 30 Hospital Course: Patient underwent a total knee arthroplasty. Patient stay was uneventful. Patient's pain was well managed. Patient's vitals and labs remained stable. Dressing remain clean dry intact. Patient's postop x-rays showed a well-seated press-fit components for a total knee arthroplasty Physical Exam Const alert and oriented x3 General Appearance: cooperative Orientation / Consciousness: awake, oriented to person, oriented to place and oriented to time HEENT normocephalic Head and Scalp: normal to inspection Eyes PERRL Cardio regular rate and regular rhythm Extremity Peripheral Pulses: Yes pulses 2+ throughout Skin General Skin Exam: no breakdown Neuro oriented x3, CN's II-XII intact bilaterally and moves all extremities Weight / BMI Weight Weight: 96.1 kg Body Mass Index (BMI) 38.7 ABG / Lab / Microbiology Data Result Diagrams: 06/27/21 07:30 06/27/21 07:30 Microbiology: Microbiology 06/29/21 13:40 Nasal Secretion SARS-CoV-2 Antigen (Rapid) - Final 06/23/21 13:36 Swab (Method) Nasal Screen MRSA/MSSA - Final D/C Instructions Discharge Diet: No restrictions May shower in (days): 3 Ice area for (Minutes): 20 (every hour while awake.) Weight Bearing Status: Weight bearing as tolerated Keep extremity elevated above heart level: Operative Extremity Call your doctor if your incision/area has: Continuous Slow Oozing, Sudden Increased Bleeding, Increased Pain/ Swelling, Increased Redness and Foul Smelling Discharge Call your doctor if you observe: Fever of 101 or Higher, Coldness, Increased Pain (in extremity), Numbness or Tingling, Change in Color, Calf discomfort and Uncontrolled pain Cleanse incision/area with: Soap & Water Please Follow Up With: Oleg Mendez PA-C When: As scheduled (see pink sheet) Meaningful Use Info Meaningful Use Diagnoses (Choose all that apply): None applicable AMI/Post PCI/Angioplasty Aspirin given w/in 24hrs of arrival?: Yes ASA at discharge?: Yes Antiplatelet Therapy at Discharge:: Yes Discharge Plan Admission Admit Date/Time: 06/26/21 15:46 Primary Reason for Your Visit: Left total knee replacement Attending Provider: Lalit Charles Primary Care Provider: Duane Odom Discharge Orders/Prescriptions Prescriptions: Continued tizanidine 4 mg tablet 4 mg PO QHS RF: 0 omeprazole 20 MG capsule 20 mg PO DAILY RF: 0 fexofenadine 60 MG tablet 60 mg PO DAILY PRN (Reason: Allergies) RF: 0 hydroxychloroquine 200 mg tablet 200 mg PO BID RF: 0 ashwagandha root extract 300 mg Capsule 900 mg PO DAILY PRN (Reason: RELAXATION) RF: 0 acetaminophen 500 mg Tablet 1,000 mg PO Q8 PRN (Reason: Pain) Qty: 90 RF: 0 Discontinued aspirin 81 MG tablet,chewable 81 mg PO DAILY RF: 0 Hold Instructions: Resume on 06/24/21. No Action acetaminophen 500 mg tablet 1,000 mg PO Q8 RF: 0 lisinopril 10 mg tablet 10 mg PO DAILY RF: 0 ergocalciferol (vitamin D2) 50,000 UNIT capsule 50,000 unit PO Mejia@1000 RF: 0 sennosides-docusate sodium [Stool Softener-Stimulant Laxat] 8.6-50 mg tablet 2 tab PO BID 30 Days Qty: 120 RF: 0 oxycodone 5 mg Tablet 5 - 10 mg PO Q4H PRN PRN (Reason: Pain Score 4-10) 7 Days Qty: 84 RF: 0 Xarelto 10 mg tablet 10 mg PO DINNER 17 Days Qty: 17 RF: 0 Referrals / Follow Up: Duane Odom MD [Primary Care Provider] - Disposition Disposition (needs filled in before D/C Order can be placed): Intermediate Facility
== END 2021-06-29 15:50 | disposition skilled nursing facility (03) ==
LOC: SDC 15:56 → MS3 15:56
PROVIDERS: Anesthesiology; Admitting Provider Orthopaedic Surgery; PCP Family Medicine; Visit Provider Orthopaedic Surgery
PROC: 0SRD0JZ Replacement of Left Knee Joint with Synthetic Substitute, Open Approach (ICD-10-PCS; CPT 27447; principal; 2021-06-26 08:45)
DX: M17.12 Unilateral primary osteoarthritis, left knee (principal); M06.862 Other specified rheumatoid arthritis, left knee; E78.5 Hyperlipidemia, unspecified; I10 Essential (primary) hypertension; I25.10 Atherosclerotic heart disease of native coronary artery without angina pectoris; M79.7 Fibromyalgia; K21.9 Gastro-esophageal reflux disease without esophagitis; I25.2 Old myocardial infarction; Z79.899 Other long term (current) drug therapy; Z79.82 Long term (current) use of aspirin; Z95.5 Presence of coronary angioplasty implant and graft; Z87.891 Personal history of nicotine dependence; E66.9 Obesity, unspecified; Z68.37 Body mass index [BMI] 37.0-37.9, adult; M79.605 Pain in left leg
CPT/HCPCS: 01402; 27447; 64447; S2900; 36415; 73560; 80048; 83735; 85027; 87081; 87426; 88305; 88311; 93971; 96361; 96365; 96366; 96375; 96376; 97110; 97116; 97162; 97165; 97530; 97535; 99218; 99251; C1776; J7120; A4216; G0378; G0463

== ENCOUNTER 2021-06-29 16:05 | Inpatient (IN) | payer MEDICARE, MEDICAID, SELFPAY ==
[2021-06-29 16:32] VITALS: BMI 37.8
[2021-06-29 16:44] VITALS: BP 136/76; PULSE 102; RESP 18; TEMP 36.3; O2SAT 96
[2021-06-29] MEDS: Senna/Docusate Sodium 1 Tablet 2 TABLET PO (18:44)
[2021-06-29] MEDS: Hydroxychloroquine 200 MG Tablet PO (18:44)
--- NOTE | 2021-06-29 20:13 | HP.PCM_ITS ---
HPI - General General Date of Admission: 06/29/21 HPI Narrative 06/26/2021 FRANCIE MORENO, is a 61 Female with followin06/26/2021 Dr. Charles performed robotic assisted left total knee replacement. 06/27/2021 Pain controlled, patient requested [facility] facility due to 10 steps in home, and lack of transportation to outpatient therapy. 06/28/2021 Left calf pain with ambulation, Doppler ultrasound negative for DVT. Switch from aspirin to Xarelto for DVT prophylaxis. 06/29/2021 Left calf pain improved. Xarelto 10mg daily x 30 days for DVT prophylaxis. 06/29/2021 Admit to TCU with debility, here for rehabilitation, strengthening, prior to discharge home with daughter. [facility] Medical History (Updated 06/29/21 @ 20:[address] Toro Baires MD) Allergic rhinitis Anxiety Arthritis Atherosclerosis of coronary artery of [place] heart without angina pectoris Back pain Cardiology follow-up encounter Chronic headaches Depression Essential hypertension Fibromyalgia Former smoker Gastric reflux High cholesterol History of echocardiogram History of heart attack History of non-ST elevation myocardial infarction (NSTEMI) (04/26/16) History of pain when walking History of stress test Hypertension Obesity Osteoarthritis of both knees Rheumatoid arthritis Shortness of breath on exertion Syncope Uses wheelchair Vitamin D deficiency Walker as ambulation aid Wears glasses Home Medications omeprazole 20 mg PO DAILY 05/19/18 [History Last Taken 06/26/21 04:30] fexofenadine 60 mg PO DAILY PRN 06/11/20 [History Last Taken 06/25/21 08:00] tizanidine 4 mg tablet 4 mg PO QHS tab 07/07/20 [History Last Taken 06/25/21 08:00] ashwagandha root extract 900 mg PO DAILY PRN 05/07/21 [History Last Taken 06/17/21] hydroxychloroquine 200 mg PO BID 05/07/21 [History Last Taken 06/25/21 08:00] acetaminophen 1,000 mg PO Q8 PRN #90 tab 05/27/21 [Rx Last Taken 06/25/21 15:00] acetaminophen 1,000 mg PO Q8 06/29/21 [History Last Taken Unknown] ergocalciferol (vitamin D2) 50,000 unit PO Mejia@1000 06/29/21 [History Last Taken Unknown] lisinopril 10 mg PO DAILY 06/29/21 [History Last Taken Unknown] oxycodone 5 - 10 mg PO Q4H PRN PRN 7 Days #84 tab 06/29/21 [Rx Last Taken Unknown] rivaroxaban [Xarelto] 10 mg PO DINNER 06/29/21 [History Last Taken Unknown] sennosides-docusate sodium [Stool Softener-Stimulant Laxat] 2 tab PO BID 06/29/21 [History Last Taken Unknown] Allergy/AdvReac Type Severity Reaction Status Date / Time No Known Allergies Allergy Verified 06/26/21 08:11 Family History Mother Hypertension CVA (cerebral vascular accident) Sister Cancer Father Heart disease Surgical History (Updated 06/29/21 @ 20:[address] Toro Baires MD) History of cardiac catheterization History of coronary artery stent placement (04/26/16) History of total left knee replacement History of total right knee replacement Hx of colonoscopy Status post incision and drainage Social History (Updated 06/29/21 @ 20:[address] Toro Baires MD) household members: children Smoking Status: Former smoker alcohol intake: current details: Infrequently ROS Constitutional Constitutional: Denies chills, fever(s) or weight gain ENT HEENT: Denies headache(s), nasal congestion or nasal discharge Cardiovascular Cardiovascular: Denies chest pain or palpitations Respiratory/Chest Respiratory/Chest: Denies cough, excessive phlegm production or shortness of breath with exertion Gastrointestinal Gastrointestinal: Denies abdominal pain, nausea or vomiting Genitourinary Genitourinary: Denies dysuria Musculoskeletal Musculoskeletal: Denies joint pain or joint swelling Integumentary Integumentary: Denies rash or wounds Neurologic Neurologic: Denies focal weakness, numbness or tingling Psychiatric Psychiatric: Reports auditory hallucinations; Denies anxiety, depression, homicidal ideation or suicidal ideation Vital Signs Vital Signs Vital Signs: 06/29/21 16:30 06/29/21 16:44 Temperature 97.4 F L Temperature Source Temporal Pulse Rate 102 H Pulse Rhythm Regular Pulse Strength Normal (2+) Respiratory Rate 18 Respiratory Effort Normal Non-Labored Respiratory Depth Normal Respiratory Pattern Normal Blood Pressure 136/76 H Blood Pressure Mean 96 Blood Pressure Source Monitor Blood Pressure Position Semi-Fowlers Blood Pressure Location Left Arm Pulse Ox 96 Oxygen Delivery Method Room Air Room Air Weight Weight: 93.9 kg Body Mass Index (BMI) 37.8 Physical Exam Const alert and oriented x3 General Appearance: cooperative HEENT normocephalic Eyes PERRL and EOMs intact bilaterally Neck supple, no JVD and no carotid bruits Resp normal respiratory effort, normal air movement and clear to auscultation bilaterally Cardio regular rate and regular rhythm GI normal to inspection, nondistended, normoactive bowel sounds, non-tender and non-distended Extremity normal capillary refill General Extremity: Negative for edema Skin no rashes or lesions noted General Skin Exam: no breakdown Psych affect normal Appearance: appropriate Assessment & Plan Assessment/Plan (1) Debility: (2) Status post total left knee replacement: (3) Muscle spasm: (4) Vitamin D deficiency: (5) Gastroesophageal reflux disease: (6) Allergic rhinitis: (7) Hypertension: (8) Rheumatoid arthritis: (9) Coronary artery disease: PLAN: 61 year old female with below past medical history hospitalized for left total knee replacement 06/26/[address] Charles, admitted to TCU with debility, here for rehabilitation, strengthening, prior to discharge home with daughter. * Debility - PT/OT. * Pain - Tylenol 1000mg q8, 1000mg q8prn, Oxycodone 5-10mg q4h prn. * Bowel - Miralax 17gm daily, senna/colace 2 tablets twice daily, Dulcolax 10mg daily prn. * Adult immunization - Administer prevnar 13, pneumovax 23, fluzone, covid19 vaccine as appropriate. * DVT prophylaxis - Xarelto 10mg daily thru 07/27/2021. * Nutrition - Ensure compact 118ml po tidcm. * Vitamin D deficiency - D2 1.25mg per week. * Rheumatoid arthritis - Plaquenil 200mg twice daily. * Hypertension - Lisinopril 10mg daily. * Allergic rhinitis - Loratadine 10mg daily prn. * GERD - pantoprazole 20mg daily. * Muscle spasm - Tizanidine 4mg QHS.
[2021-06-29] MEDS: oxyCODONE 5 MG Tablet PO (20:18)
[2021-06-29] MEDS: Acetaminophen 500 MG Tablet 1000 MG PO (20:19)
[2021-06-29] MEDS: tiZANidine HCl 2 MG Tablet 4 MG PO (20:20)
[2021-06-29] MEDS: Rivaroxaban 10 MG Tablet PO (20:26)
[2021-06-30] MEDS: oxyCODONE 5 MG Tablet PO ×4 (02:32→20:17)
[2021-06-30] MEDS: Acetaminophen 500 MG Tablet 1000 MG PO ×3 (04:59→22:13)
[2021-06-30] MEDS: Senna/Docusate Sodium 1 Tablet 2 TABLET PO ×2 (04:59→17:42)
[2021-06-30] MEDS: Pantoprazole Sodium 20 MG Tablet PO (04:59)
[2021-06-30] MEDS: Hydroxychloroquine 200 MG Tablet PO ×2 (04:59→17:42)
[2021-06-30] MEDS: Lisinopril 10 MG Tablet PO (05:04)
[2021-06-30 05:35] LABS: Absolute Lymphocyte Count 1.66 X10^3/uL (0.83-4.51); Absolute Neutrophil Count 3.8 X10^3/uL (2.0-7.7); Basophil# 0.04 X10^3/uL; Basophil% 0.6 % (0-1); Eosinophil# 0.39 X10^3/uL; Eosinophils% 5.9 % (0-5); Hematocrit 24.8 % (37-47); Hemoglobin 7.6 g/dL (12.0-15.0); Lymphocyte # 1.66 X10^3/ul (0.83-4.51); Lymphocyte % 25.3 % (19-41); Mean Corp Hgb Conc 30.6 g/dL (32-36); Mean Corpuscular Hgb 27.2 pg (27.0-32.0); Mean Corpuscular Volume 88.9 fL (81-99); Mean Platelet Vol. 9.3 fl (6.2-12.0); Monocyte# 0.55 X10^3/uL; Monocyte% 8.4 % (0-10); NRBC Flagged by Analyzer 0 % (0-5); Neutrophil # 3.83 X10^3/uL (2.7-7.7); Neutrophil % 58.4 % (47-70); Platelet Count 350 K/mm3 (150-450); RBC Distribution Width CV 13.3 % (11.6-14.6); RBC Distribution Width SD 43.3 fl (35.1-43.9); Red Blood Count 2.79 M/mm3 (4.2-5.4); White Blood Count 6.6 K/mm3 (4.4-11.0)
[2021-06-30 06:13] LABS: Anion Gap 6 (5-15); BUN 15 mg/dL (7-18); BUN/Creat Ratio 24.8 RATIO (10-20); Calcium,Total 8.6 mg/dL (8.5-10.1); Chloride 104 mmol/L (98-107); Creatinine, Serum 0.61 mg/dL (0.55-1.02); EST Glomerular Filtration Rate 106 mL/min (>60); Est Glom Filt Rate - Afr Amer 129 mL/min (>60); Estimated Creatinine Clearance 75.63 ml/min; Glucose 97 mg/dL (74-106); Potassium 3.7 mmol/L (3.5-5.1); Sodium Level 141 mmol/L (136-145)
--- NOTE | 2021-06-30 09:22 | NURSING ---
Pt's IV in right hand was noted to be dialoged and no longer usable. Pulled IV and Tip noted to be intact.
[2021-06-30] MEDS: Tuberculin,Purif.prot.deriv. 50 TU/ML Vial 0.1 ML ID (10:18)
[2021-06-30 11:42] VITALS: PULSE 97; RESP 18; O2SAT 98
[2021-06-30 11:57] VITALS: BP 150/84; PULSE 97; RESP 18; TEMP 37.3; O2SAT 98
--- NOTE | 2021-06-30 15:58 | CASEMGMT ---
Social Work Met with patient for initial assessment. Discussed code status. Pt confirmed full code. MOLST form completed, communication to , placed in chart. Discussed [facility] insurance with [employer]D 07/01 and continued stay is not guaranteed. 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 The goal is for pt to be safe at home alone, to safely navigate multiple steps and shower/ambulate mod I/with AD. Pt reports to depression and anxiety d/t dx and limitations from RA that began about five years ago. Pt disclosed her social life had diminished, she gained weight, which affected her self-esteem, confidence, wanting to get out of the house. Pt expressed she felt guilt but comfort during the pandemic when she no longer needed excuses to not go out of the house - and everyone was supposed to stay in their homes. Spoke with pt at length about coping skills, goals vs expectations, encouraged counseling at DC. Provided supportive listening, validated feelings, verbal and emotional support. Pt denied medications for mood r/t to bad past experience. Pt stated she has friends to talk to and share feelings with, but after conversation with SW, agreed to consider counseling after DC. SW offered for ongoing support during stay and will assist with DC plans. Will continue to follow. ONUR GayleW
[2021-06-30] MEDS: tiZANidine HCl 2 MG Tablet 4 MG PO (22:15)
[2021-07-01] MEDS: oxyCODONE 5 MG Tablet PO ×3 (02:57→17:57)
[2021-07-01] MEDS: Pantoprazole Sodium 20 MG Tablet PO (05:12)
[2021-07-01] MEDS: Acetaminophen 500 MG Tablet 1000 MG PO ×3 (05:12→21:14)
[2021-07-01] MEDS: Lisinopril 10 MG Tablet PO (05:14)
[2021-07-01 05:16] VITALS: BP 169/79; PULSE 94; RESP 16; TEMP 36.1; O2SAT 99
--- NOTE | 2021-07-01 11:05 | NURSING ---
Infusion center calls and states resident was complaining of Lt knee pain #10/10. Oxyir brought from TCU and scanned in infusion center. Ice pack given as well to help alleviate pain.
--- NOTE | 2021-07-01 13:28 | NURSING ---
Back from infusion center. Assisted to bathroom then back to bed. Does not want polar care put on this time.
[2021-07-01 14:12] VITALS: BP 168/93; PULSE 104; RESP 16; TEMP 36.5; O2SAT 97
--- NOTE | 2021-07-01 15:22 | PHA.CONS_ITS ---
Progress Note - Pharmacy Subjective: TCU Admission Objective: Allergies No Known Allergies Allergy (Verified 07/01/21 08:19) Current Medications Generic Name Dose Route Start Last Admin Trade Name Xuq PRN Reason Stop Dose Admin Acetaminophen 1,000 mg 06/29/21 16:39 06/30/21 11:39 Acetaminophen 500 Mg Tablet PO 1,000 mg Q8H PRN PRN Administration Pain Score 1-10 Acetaminophen 1,000 mg 06/29/21 22:00 07/01/21 13:32 Acetaminophen 500 Mg Tablet PO 1,000 mg Q8 BILL Administration Bisacodyl 10 mg 06/29/21 20:24 Bisacodyl 5 Mg Tablet PO DAILY PRN PRN Constipation Ergocalciferol 1.25 mg 07/05/21 10:00 Ergocalciferol 1.25 Mg (50, 000 Unit) Capsule PO Mejia@1000 [facility] Hydroxychloroquine Sulfate 200 mg 06/29/21 18:00 07/01/21 05:11 Hydroxychloroquine 200 Mg Tablet PO Not Given BID [facility] Lisinopril 10 mg 06/30/21 06:00 07/01/21 05:14 Lisinopril 10 Mg Tablet PO 10 mg DAILY [facility] Administration Loratadine 10 mg 06/29/21 17:14 Loratadine 10 Mg Tablet PO DAILY PRN PRN Allergies Nutritional Formula (Lactose Free) 118 ml 06/29/21 17:45 07/01/21 12:40 Ensure Compact 118 Ml Liquid PO Not Given TIDCM [facility] Oxycodone HCl 5 - 10 mg 06/29/21 16:39 07/01/21 11:00 Oxycodone 5 Mg Tablet PO 10 mg Q4H PRN PRN Administration Pain Score 4-10 Pantoprazole Sodium 20 mg 06/30/21 06:00 07/01/21 05:12 Pantoprazole Sodium 20 Mg Tablet PO 20 mg DAILY [facility] Administration Polyethylene Glycol 17 gm 06/30/21 06:00 07/01/21 05:10 Polyethylene Glycol 3350 17 Gm Packet PO Not Given DAILY [facility] Rivaroxaban 10 mg 06/29/21 17:00 06/29/21 20:26 Rivaroxaban 10 Mg Tablet PO 07/27/21 23:52 10 mg DINNER BILL Administration Senna/Docusate Sodium 2 tablet 06/29/21 18:00 07/01/21 05:11 Senna/Docusate Sodium 1 Tablet PO Not Given BID BILL Sodium Chloride 10 - 40 ml 06/29/21 17:02 0.9% Saline Lock 10 Ml Syringe IV UD PRN SALINE FLUSH Tizanidine HCl 4 mg 06/29/21 22:00 06/30/21 22:15 Tizanidine Hcl 2 Mg Tablet PO 4 mg QHS BILL Administration Tuberculin PPD 0.1 ml 07/07/21 10:00 Tuberculin,Purif.Prot.Deriv. 50 Tu/Ml Vial ID 07/07/21 10:01 X1 ONE Problem List (Last Updated 06/29/21 @ 20:[address] Toro Baires MD) Coronary artery disease (Acute) Rheumatoid arthritis (Acute) Hypertension (Chronic) Allergic rhinitis (Acute) Gastroesophageal reflux disease (Acute) Vitamin D deficiency (Acute) Muscle spasm (Acute) Debility (Acute) Status post total left knee replacement (Acute) Vital Signs Temp Pulse Resp BP Pulse Ox 97.7 F L 104 H 16 168/93 H 97 07/01/21 14:12 07/01/21 14:12 07/01/21 14:12 07/01/21 14:12 07/01/21 14:12 Oxygen Delivery Method Room Air Weight: 93.667 kg Body Mass Index (BMI) 37.8 Sodium 141 mmol/L (136-145) 06/30/21 05:24 Potassium 3.7 mmol/L (3.5-5.1) 06/30/21 05:24 Chloride 104 mmol/L (98-107) 06/30/21 05:24 Carbon Dioxide 31.0 mmol/L (21.0-32.0) 06/30/21 05:24 Anion Gap 6 (5-15) 06/30/21 05:24 BUN 15 mg/dL (7-18) 06/30/21 05:24 Creatinine 0.61 mg/dL (0.55-1.02) 06/30/21 05:24 Est GFR (MDRD) Af Amer 129 mL/min (>60) 06/30/21 05:24 Est GFR (MDRD) Non-Af 106 mL/min (>60) 06/30/21 05:24 BUN/Creatinine Ratio 24.8 RATIO (10-20) H 06/30/21 05:24 Glucose 97 mg/dL (74-106) 06/30/21 05:24 Assessment/Plan: 1. Pain: acetaminophen 1000mg PO Q8 and Q8H PRN pain 1-10, oxycodone 5-10mg PO Q4H PRN pain 4-10. Please continue to monitor for increased pain, PRN usage, constipation and respiratory depression. 2. DVT prophylaxis: rivaroxaban 10mg PO daily thru 07/27/21. Please continue to monitor for S/S of bleeding/DVT and hemoglobin (last 7.6g/dL). 3. Rheumatoid arthritis: hydroxychloroquine 200mg PO BID. Please continue to monitor for S/S of RA. 4. Hypertension: lisinopril 10mg PO daily. Please continue to monitor BP (last 168/93), HR (last 104), potassium (last 3.7mmol/L), sodium (last 141mmol/L), cough and renal function. 5. Allergic rhinitis: loratadine 10mg PO daily PRN allergies. Please continue to monitor for S/S of allergies. 6. GERD: pantoprazole 20mg PO daily. Please continue to monitor for S/S of GERD and diarrhea. 7. Muscle spasm: tizanidine 4mg PO QHS. Please continue to monitor for drowsiness. 8. Vitamin D deficiency: ergocalciferol 1.25mg PO weekly. Please continue to monitor vitamin D levels (last 11/19/20). Psychotropic Medications: None Unnecessary Medications: None *Bowel Regimen: Miralax 17gm PO daily, senna/docusate 2T PO BID and bisacodyl 10mg PO daily PRN constipation. Please consider stopping Miralax, patient has refused all doses. Thanks. Please continue to monitor for constipation and PRN usage. Date of Note:: 07/01/21
[2021-07-01] MEDS: Senna/Docusate Sodium 1 Tablet 2 TABLET PO (17:54)
[2021-07-01] MEDS: tiZANidine HCl 2 MG Tablet 4 MG PO (21:15)
[2021-07-01 22:13] VITALS: PULSE 86
[2021-07-02] MEDS: oxyCODONE 5 MG Tablet PO ×5 (02:14→23:06)
[2021-07-02] MEDS: Senna/Docusate Sodium 1 Tablet 2 TABLET PO (04:48)
[2021-07-02] MEDS: Acetaminophen 500 MG Tablet 1000 MG PO ×3 (04:49→19:35)
[2021-07-02] MEDS: Pantoprazole Sodium 20 MG Tablet PO (04:49)
[2021-07-02] MEDS: Lisinopril 10 MG Tablet PO (04:49)
[2021-07-02] MEDS: Polyethylene Glycol 3350 17 GM PACKET PO (04:50)
[2021-07-02 06:05] LABS: Hematocrit 31.7 % (37-47); Hemoglobin 10.5 g/dL (12.0-15.0)
[2021-07-02 06:57] VITALS: BP 154/91; PULSE 95
--- NOTE | 2021-07-02 10:52 | NURSING ---
pt refusing ensure, upsets stomach. dc'd ensure
[2021-07-02 10:59] VITALS: PULSE 98; RESP 16; O2SAT 98
[2021-07-02 15:02] VITALS: BP 171/86; PULSE 87; RESP 14; TEMP 36.6; O2SAT 98
[2021-07-02] MEDS: tiZANidine HCl 2 MG Tablet 4 MG PO (19:34)
--- NOTE | 2021-07-03 01:37 | NURSING ---
IV site to left forearm flushed without difficulty. IV catheter removed, bandaid applied. Patient tolerated well.
[2021-07-03] MEDS: oxyCODONE 5 MG Tablet PO ×4 (04:00→21:25)
[2021-07-03] MEDS: Acetaminophen 500 MG Tablet 1000 MG PO ×4 (05:05→21:24)
[2021-07-03] MEDS: Pantoprazole Sodium 20 MG Tablet PO (05:06)
[2021-07-03] MEDS: Lisinopril 10 MG Tablet PO (05:06)
--- NOTE | 2021-07-03 05:22 | NURSING ---
Dressing removed from left knee incision. Patient tolerated well. [address], edges well approximated. No drainage noted. 4 sutures distal to incision. No drainage noted around sutures. No s/sx infection. Mepilex applied over sutures. Patient to follow up with PA on 07/10. Encouraged patient to continue to apply polar care therapy as well as elevating when resting. Verbalized understanding. Will continue to monitor.
[2021-07-03 05:41] VITALS: BP 151/86; PULSE 81; RESP 18
[2021-07-03 13:22] VITALS: BP 141/87; PULSE 94; RESP 18; TEMP 36.2; O2SAT 98
[2021-07-03] MEDS: Rivaroxaban 10 MG Tablet PO (16:55)
[2021-07-03 19:34] VITALS: PULSE 78; RESP 16; O2SAT 95
[2021-07-03] MEDS: tiZANidine HCl 2 MG Tablet 4 MG PO (21:24)
[2021-07-04] MEDS: oxyCODONE 5 MG Tablet PO ×3 (05:45→19:48)
[2021-07-04] MEDS: Pantoprazole Sodium 20 MG Tablet PO (05:48)
[2021-07-04] MEDS: Acetaminophen 500 MG Tablet 1000 MG PO ×3 (05:48→19:49)
[2021-07-04] MEDS: Lisinopril 10 MG Tablet PO (05:49)
[2021-07-04 12:29] VITALS: PULSE 83; RESP 18; O2SAT 96
[2021-07-04 16:13] VITALS: BP 155/94; PULSE 83; RESP 18; TEMP 36.7; O2SAT 96
[2021-07-04] MEDS: Rivaroxaban 10 MG Tablet PO (17:13)
[2021-07-04] MEDS: tiZANidine HCl 2 MG Tablet 4 MG PO (19:49)
[2021-07-05] MEDS: oxyCODONE 5 MG Tablet PO ×4 (02:10→21:09)
[2021-07-05] MEDS: Acetaminophen 500 MG Tablet 1000 MG PO ×3 (05:53→21:08)
[2021-07-05] MEDS: Polyethylene Glycol 3350 17 GM PACKET PO (05:53)
[2021-07-05] MEDS: Lisinopril 10 MG Tablet PO (05:54)
[2021-07-05] MEDS: Senna/Docusate Sodium 1 Tablet 2 TABLET PO (05:54)
[2021-07-05] MEDS: Pantoprazole Sodium 20 MG Tablet PO (05:54)
[2021-07-05] MEDS: Ergocalciferol 1.25 MG (50, 000 UNIT) Capsule PO (10:25)
[2021-07-05 15:04] VITALS: BP 156/84; PULSE 87; RESP 16; TEMP 36.8; O2SAT 98
[2021-07-05] MEDS: Rivaroxaban 10 MG Tablet PO (17:06)
[2021-07-05 21:00] VITALS: PULSE 87; RESP 16; O2SAT 99
[2021-07-05] MEDS: tiZANidine HCl 2 MG Tablet 4 MG PO (21:09)
[2021-07-06] MEDS: oxyCODONE 5 MG Tablet PO ×4 (01:44→17:32)
[2021-07-06 06:03] VITALS: BP 158/92; PULSE 86
[2021-07-06] MEDS: Acetaminophen 500 MG Tablet 1000 MG PO ×3 (06:04→21:39)
[2021-07-06] MEDS: Pantoprazole Sodium 20 MG Tablet PO (06:05)
[2021-07-06] MEDS: Lisinopril 10 MG Tablet PO (06:05)
[2021-07-06] MEDS: Hydroxychloroquine 200 MG Tablet PO (06:05)
[2021-07-06 10:00] VITALS: PULSE 100; RESP 16; O2SAT 96
--- NOTE | 2021-07-06 14:40 | NURSING ---
Left mesage for daughter, Richelle to call.
--- NOTE | 2021-07-06 15:10 | NURSING ---
Daughter, Richelle, notified of current COVID status on the unit.
--- NOTE | 2021-07-06 15:51 | NURSING ---
Resident does not want to get the Moderna Booster at this time.
[2021-07-06 16:00] VITALS: BP 123/71; PULSE 80; RESP 14; TEMP 36.2; O2SAT 95
[2021-07-06] MEDS: Rivaroxaban 10 MG Tablet PO (17:30)
[2021-07-06] MEDS: tiZANidine HCl 2 MG Tablet 4 MG PO (21:40)
--- NOTE | 2021-07-06 22:00 | NURSING ---
Pt informs this nurse she has been applying a Vitamin E spray to lt knee incision w/ reynaldo. Has appt for staple removal on Tuesday, 07/10. Reports she used this spray when she had her right knee replaced. Has a pillow under left knee under popliteal region extending vertically down to foot. This nurse informs pt typical practice is not to have a pillow under knee and lower leg s/p surgery due to concerns with healing and mobility. Pt declines to remove pillow.
[2021-07-07] MEDS: oxyCODONE 5 MG Tablet PO ×5 (01:07→20:43)
[2021-07-07] MEDS: Lisinopril 10 MG Tablet PO (06:00)
[2021-07-07] MEDS: Pantoprazole Sodium 20 MG Tablet PO (06:00)
[2021-07-07 06:01] LABS: Absolute Lymphocyte Count 1.53 X10^3/uL (0.83-4.51); Absolute Neutrophil Count 3.4 X10^3/uL (2.0-7.7); Basophil# 0.06 X10^3/uL; Eosinophil# 0.14 X10^3/uL; Eosinophils% 2.4 % (0-5); Hemoglobin 9.9 g/dL (12.0-15.0); Lymphocyte # 1.53 X10^3/ul (0.83-4.51); Lymphocyte % 26.2 % (19-41); Mean Corpuscular Hgb 27.9 pg (27.0-32.0); Mean Platelet Vol. 9.5 fl (6.2-12.0); Monocyte# 0.61 X10^3/uL; Monocyte% 10.5 % (0-10); NRBC Flagged by Analyzer 0 % (0-5); Neutrophil # 3.42 X10^3/uL (2.7-7.7); Neutrophil % 58.7 % (47-70); Platelet Count 359 K/mm3 (150-450); RBC Distribution Width CV 13.9 % (11.6-14.6); RBC Distribution Width SD 47.3 fl (35.1-43.9); Red Blood Count 3.55 M/mm3 (4.2-5.4); White Blood Count 5.8 K/mm3 (4.4-11.0)
[2021-07-07] MEDS: Acetaminophen 500 MG Tablet 1000 MG PO ×3 (06:01→20:44)
[2021-07-07 06:03] VITALS: BP 166/91; PULSE 86; RESP 16; TEMP 36.7; O2SAT 97
[2021-07-07 06:36] LABS: Anion Gap 7 (5-15); BUN 15 mg/dL (7-18); BUN/Creat Ratio 24.9 RATIO (10-20); Calcium,Total 8.9 mg/dL (8.5-10.1); Chloride 103 mmol/L (98-107); EST Glomerular Filtration Rate 107 mL/min (>60); Est Glom Filt Rate - Afr Amer 130 mL/min (>60); Estimated Creatinine Clearance 76.89 ml/min; Glucose 87 mg/dL (74-106); Potassium 3.8 mmol/L (3.5-5.1); Sodium Level 137 mmol/L (136-145)
--- NOTE | 2021-07-07 10:17 | CASEMGMT ---
Social Work IDT met with patient and two daughters for care plan meeting. Discussed patient's progress in therapy and nursing. Pt progressing well. Explained [employer] insurance with [employer]D 07/07 and [employer] 07/10. Explained and provided insurance care plan. Pt has f/u appt with surgeon to remove reynaldo 07/10 and requesting to DC prior to appt. Dtr and IDT agreeable and feel safe at home alone with dtr is working. Recommending outpatient therapy. Pt agreeable. Dtr can transport. Pt prefers [facility]. Referral made for PT/OT. No DME needs. Plan: DC home with dtr 07/10, [facility] PT/OT ONUR GayleW
[2021-07-07] MEDS: Tuberculin,Purif.prot.deriv. 50 TU/ML Vial 0.1 ML ID (11:44)
[2021-07-07 14:34] VITALS: BP 144/82; PULSE 84; RESP 18; TEMP 36.7; O2SAT 97
[2021-07-07] MEDS: Rivaroxaban 10 MG Tablet PO (17:08)
[2021-07-07] MEDS: Hydroxychloroquine 200 MG Tablet PO (17:09)
--- NOTE | 2021-07-07 18:58 | DS.PCM_ITS ---
Providers Date of Admission: 06/29/21 Primary Care Physician: Dr. Duane Odom MD Reason For Visit: LEFT TOTAL KNEE REPLACEMENT Diagnosis Discharge Diagnosis (1) Debility: Status: Acute Code(s): R53.81 - Other malaise (2) Status post total left knee replacement: Status: Acute Code(s): Z96.652 - Presence of left artificial knee joint (3) Muscle spasm: Status: Acute Code(s): M62.838 - Other muscle spasm (4) Vitamin D deficiency: Status: Acute Code(s): E55.9 - Vitamin D deficiency, unspecified (5) Gastroesophageal reflux disease: Status: Inactive Code(s): K21.9 - Gastro-esophageal reflux disease without esophagitis (6) Allergic rhinitis: Status: Inactive Code(s): J30.9 - Allergic rhinitis, unspecified (7) Hypertension: Status: Deleted Code(s): I10 - Essential (primary) hypertension (8) Rheumatoid arthritis: Status: Inactive Code(s): M06.9 - Rheumatoid arthritis, unspecified (9) Coronary artery disease: Status: Inactive Code(s): I25.10 - Atherosclerotic heart disease of [place] coronary artery without angina pectoris Medications at Discharge Home Medications omeprazole 20 mg PO DAILY 05/19/18 fexofenadine 60 mg PO DAILY PRN 06/11/20 tizanidine 4 mg tablet 4 mg PO QHS tab 07/07/20 ashwagandha root extract 900 mg PO DAILY PRN 05/07/21 hydroxychloroquine 200 mg PO BID 05/07/21 acetaminophen 1,000 mg PO Q8 PRN #90 tab 05/27/21 acetaminophen 1,000 mg PO Q8 06/29/21 ergocalciferol (vitamin D2) 50,000 unit PO Mejia@1000 06/29/21 lisinopril 10 mg PO DAILY 06/29/21 Xarelto 10 mg PO DINNER 17 Days #17 tab 07/07/21 oxycodone 5 - 10 mg PO Q4H PRN PRN 7 Days #84 tab 07/07/21 sennosides-docusate sodium [Stool Softener-Stimulant Laxat] 2 tab PO BID 30 Days #120 tab 07/07/21 Hospital Course Operations total knee replacement (Left.) Procedures None Summary of Care Provided Minutes Spent on Discharge: 30 Hospital Course: 61 year old female with below past medical history hospitalized for left total knee replacement 06/26/[address] Charles, admitted to TCU with debility, here for rehabilitation, strengthening, prior to discharge home with daughter. Discharge home with daughter 07/10/2021, [facility] PT/OT. Physical Exam Const alert and oriented x3 General Appearance: cooperative HEENT normocephalic Eyes PERRL and EOMs intact bilaterally Neck supple, no JVD and no carotid bruits Resp normal respiratory effort, normal air movement and clear to auscultation bilaterally Cardio regular rate and regular rhythm GI normal to inspection, nondistended, normoactive bowel sounds, non-tender and non-distended Extremity normal capillary refill General Extremity: Negative for edema Skin no rashes or lesions noted General Skin Exam: no breakdown Psych affect normal Appearance: appropriate Weight / BMI Weight Weight: 93.213 kg Body Mass Index (BMI) 37.8 ABG / Lab / Microbiology Data Result Diagrams: 07/07/21 05:22 07/07/21 05:22 Laboratory: Laboratory Results - last 24 hr 07/07/21 05:22: WBC 5.8, RBC 3.55 L, Hgb 9.9 L, Hct 33.0 L, MCV 93.0, MCH 27.9, MCHC 30.0 L, RDW Std Deviation 47.3 H, RDW Coeff of Daphne 13.9, Plt Count 359, MPV 9.5, Immature Gran % (Auto) 1.200 H, Neut % (Auto) 58.7, Lymph % (Auto) 26.2, Steele % (Auto) 10.5 H, Eos % (Auto) 2.4, Baso % (Auto) 1.0, Absolute Neuts (auto) 3.4, Absolute Lymphs (auto) 1.53, Nucleated RBC % 0 07/07/21 05:22: Sodium 137, Potassium 3.8, Chloride 103, Carbon Dioxide 27.0, Anion Gap 7, BUN 15, Creatinine 0.60, Estim Creat Clear Calc 76.89, Est GFR (MDRD) Af Amer 130, Est GFR (MDRD) Non-Af 107, BUN/Creatinine Ratio 24.9 H, Glucose 87, Calcium 8.9 Microbiology: Microbiology 07/07/21 12:29 Nasal Secretion SARS-CoV-2 Antigen (Rapid) - Final D/C Instructions Discharge Diet: No restrictions Discharge Activity: Return to Normal Activity, May Shower and Use Walker Weight Bearing Status: Weight bearing as tolerated Call your doctor if you observe: Fever of 101 or Higher, Inability to urinate, Inability to have a bowel movement, Shortness of breath, Dizziness, Fainting spells, Swelling in the ankles, Chest pain and Uncontrolled pain Additional Instructions: Discharge home with daughter 07/10/2021, [facility] PT/OT. Please Follow Up With: Oleg Mendez PA-C When: As scheduled. Meaningful Use Info Meaningful Use Diagnoses (Choose all that apply): None applicable Discharge Plan Admission Admit Date/Time: 06/29/21 16:05 Primary Reason for Your Visit: Debility. Attending Provider: Toro Baires Chi Primary Care Provider: Duane Odom Instructions Additional Instructions / Restrictions: Discharge home with daughter 07/10/2021, [facility] PT/OT. Discharge Orders/Prescriptions Prescriptions: Continued tizanidine 4 mg tablet 4 mg PO QHS RF: 0 omeprazole 20 MG capsule 20 mg PO DAILY RF: 0 fexofenadine 60 MG tablet 60 mg PO DAILY PRN (Reason: Allergies) RF: 0 hydroxychloroquine 200 mg tablet 200 mg PO BID RF: 0 ashwagandha root extract 300 mg Capsule 900 mg PO DAILY PRN (Reason: RELAXATION) RF: 0 acetaminophen 500 mg Tablet 1,000 mg PO Q8 PRN (Reason: Pain) Qty: 90 RF: 0 acetaminophen 500 mg tablet 1,000 mg PO Q8 RF: 0 lisinopril 10 mg tablet 10 mg PO DAILY RF: 0 ergocalciferol (vitamin D2) 50,000 UNIT capsule 50,000 unit PO Mejia@1000 RF: 0 sennosides-docusate sodium [Stool Softener-Stimulant Laxat] 8.6-50 mg tablet 2 tab PO BID 30 Days Qty: 120 RF: 0 oxycodone 5 mg Tablet 5 - 10 mg PO Q4H PRN PRN (Reason: Pain Score 4-10) 7 Days Qty: 84 RF: 0 Xarelto 10 mg tablet 10 mg PO DINNER 17 Days Qty: 17 RF: 0 Referrals / Follow Up: Duane Odom MD [Primary Care Provider] - Disposition Disposition (needs filled in before D/C Order can be placed): Home, Self Care
[2021-07-07] MEDS: tiZANidine HCl 2 MG Tablet 4 MG PO (20:44)
[2021-07-07 20:55] VITALS: PULSE 16; RESP 16; O2SAT 96
[2021-07-08] MEDS: oxyCODONE 5 MG Tablet PO ×5 (01:04→21:10)
[2021-07-08] MEDS: Acetaminophen 500 MG Tablet 1000 MG PO ×3 (04:51→21:09)
[2021-07-08] MEDS: Pantoprazole Sodium 20 MG Tablet PO (04:51)
[2021-07-08] MEDS: Lisinopril 10 MG Tablet PO (04:52)
--- NOTE | 2021-07-08 04:55 | NURSING ---
Declines senna at time. Pt. requests Miralax later this morning after I know what time I'll be getting therapy. Miralax not administered at this time per pt. request.
[2021-07-08 05:00] VITALS: BP 142/86; PULSE 82
[2021-07-08] MEDS: Senna/Docusate Sodium 1 Tablet 2 TABLET PO (16:59)
[2021-07-08] MEDS: Polyethylene Glycol 3350 17 GM PACKET PO (17:00)
[2021-07-08] MEDS: Rivaroxaban 10 MG Tablet PO (17:00)
[2021-07-08] MEDS: tiZANidine HCl 2 MG Tablet 4 MG PO (21:10)
[2021-07-09] MEDS: oxyCODONE 5 MG Tablet PO ×5 (01:25→21:31)
[2021-07-09 06:14] VITALS: BP 145/93; PULSE 89; RESP 16; TEMP 35.9; O2SAT 93
[2021-07-09] MEDS: Pantoprazole Sodium 20 MG Tablet PO (06:20)
[2021-07-09] MEDS: Lisinopril 10 MG Tablet PO (06:20)
[2021-07-09] MEDS: Acetaminophen 500 MG Tablet 1000 MG PO ×3 (06:20→21:31)
--- NOTE | 2021-07-09 08:12 | NURSING ---
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
--- NOTE | 2021-07-09 09:57 | MDS.RN ---
Information for the mds was obtained from review of the clinical record, interview of resident, staff, and direct observation of resident's care.
[2021-07-09] MEDS: Rivaroxaban 10 MG Tablet PO (16:48)
[2021-07-09] MEDS: Senna/Docusate Sodium 1 Tablet 2 TABLET PO (16:48)
[2021-07-09 17:03] VITALS: BP 148/87; PULSE 100; RESP 18; TEMP 36.8; O2SAT 98
[2021-07-09] MEDS: tiZANidine HCl 2 MG Tablet 4 MG PO (21:31)
[2021-07-09 22:19] VITALS: PULSE 72; RESP 12; O2SAT 93
[2021-07-10] MEDS: oxyCODONE 5 MG Tablet PO ×2 (02:29→08:43)
[2021-07-10] MEDS: Pantoprazole Sodium 20 MG Tablet PO (05:43)
[2021-07-10] MEDS: Lisinopril 10 MG Tablet PO (05:43)
[2021-07-10] MEDS: Acetaminophen 500 MG Tablet 1000 MG PO (05:43)
[2021-07-10 06:00] VITALS: PULSE 78; RESP 12; O2SAT 93
[2021-07-10 11:28] VITALS: BP 163/92; PULSE 84; RESP 12; TEMP 36.1; O2SAT 93
== END 2021-07-10 12:25 | disposition home or self-care (01) | DRG 561 ==
PROVIDERS: Admitting Provider Family Medicine Geriatric Medicine; PCP Family Medicine; Visit Provider Family Medicine Geriatric Medicine
DX: Z47.1 Aftercare following joint replacement surgery (principal); Z96.652 Presence of left artificial knee joint; I25.10 Atherosclerotic heart disease of native coronary artery without angina pectoris; I10 Essential (primary) hypertension; M06.9 Rheumatoid arthritis, unspecified; M79.7 Fibromyalgia; E78.00 Pure hypercholesterolemia, unspecified; E55.9 Vitamin D deficiency, unspecified; K21.9 Gastro-esophageal reflux disease without esophagitis; I25.2 Old myocardial infarction; Z87.891 Personal history of nicotine dependence; Z79.899 Other long term (current) drug therapy; Z79.01 Long term (current) use of anticoagulants
CPT/HCPCS: 36415; 36430; 80048; 85014; 85018; 85025; 86850; 86900; 86901; 86920; 86922; 87426; 97110; 97116; 97140; 97162; 97166; 97530; 97535; 97802; J7040; P9016; P9040; A4216; J1940

== ENCOUNTER → 2021-07-01 | Outpatient (CLI) | payer MEDICARE, MEDICAID, SELFPAY ==
[2021-07-01 08:15] VITALS: BP 138/80; PULSE 95; RESP 16; TEMP 36.4; O2SAT 97; BMI 37.5
[2021-07-01] MEDS: 0.9% NaCl Peripheral Flush Adult/Peds IV (08:25)
[2021-07-01 08:39] VITALS: BP 144/86; PULSE 84; RESP 16; TEMP 36.8; O2SAT 97
[2021-07-01 09:39] VITALS: BP 163/98; PULSE 83; RESP 16; TEMP 36.4
[2021-07-01 10:30] VITALS: BP 172/107; PULSE 83; RESP 16; TEMP 36.2; O2SAT 98
[2021-07-01] MEDS: Furosemide 20 MG/2 ML VIAL IV (10:33)
[2021-07-01 11:12] VITALS: BP 148/87; PULSE 90; RESP 16; TEMP 36.5; O2SAT 100
[2021-07-01 12:08] VITALS: BP 151/90; PULSE 88; RESP 16; TEMP 36.6; O2SAT 94
== END | disposition home or self-care (01) ==
LOC: MEDOUTP 08:03
PROVIDERS: PCP Family Medicine; Referring Provider Family Medicine Geriatric Medicine; Visit Provider Family Medicine Geriatric Medicine
DX: Z96.651 Presence of right artificial knee joint (principal)
CPT/HCPCS: 36415; 36430; 86850; 86900; 86901; 86920; 86922; J7040; P9016; P9040; A4216; J1940

== ENCOUNTER → 2021-08-06 12:19 | Outpatient (CLI) | payer MEDICARE, MEDICAID, SELFPAY ==
[2021-08-06 15:25] LABS: Hematocrit 36.3 % (37-47); Hemoglobin 11.6 g/dL (12.0-15.0); Mean Corpuscular Hgb 28.1 pg (27.0-32.0); Mean Corpuscular Volume 87.9 fL (81-99); Mean Platelet Vol. 9.5 fl (6.2-12.0); Platelet Count 463 K/mm3 (150-450); RBC Distribution Width CV 14.1 % (11.6-14.6); RBC Distribution Width SD 45.1 fl (35.1-43.9); RET-HE 32.9 pg (30-35); Red Blood Count 4.13 M/mm3 (4.2-5.4); Reticulocyte Count 1.67 % (0.5-1.5); White Blood Count 8.4 K/mm3 (4.4-11.0)
[2021-08-06 15:42] LABS: Ferritin 82 ng/mL (8-252); Iron 41 ug/dL (50-170); Iron Binding Capacity,Total 363 ug/dL (250-450)
== END ==
PROVIDERS: PCP Family Medicine; Referring Provider Family Medicine; Visit Provider Family Medicine
DX: D64.9 Anemia, unspecified (principal)
CPT/HCPCS: 36415; 82728; 83540; 83550; 85027; 85045

== ENCOUNTER 2021-08-13 12:30 | Outpatient (RCR) | payer MEDICARE, MEDICAID, SELFPAY ==
--- NOTE | 2021-07-14 14:00 | HP.PTEVAL ---
Patient's Visit Information FRANCIE MORENO is a 61 year old F referred to Physical Therapy by Dr. Toro Baires MD with a diagnosis of LEFT TKR. Date of Evaluation: 07/14/21 Physical Therapist: Chetan Poole PT, Cert MDT, OCS - Visit Plan Frequency: 1-2x /Week Duration: 6 Weeks - Subjective This 61 y/o female presents to physical therapy with left TKR on Jun by DR Charles at [facility]. Patient went to TCU on 06/29/21 for Rehab. Patient had blood transfusion due to HGB dropped. Patient D/C Jul 10 2021. Patient seen 07/10 removed reynaldo. RTW 07/28/21. Patient has knee pain 5 years . Patient had right TKR 11/2020.Patient was to have left TKR May 25 but wanted to check for infection. Tried cortisone injection and gel injections. Patient has RA . Denies paresthesia/tingling , MEDS : Oxycodone. tellenol. Patient lives spit level with 10 steps lower level 1 steps from garage ,1/2 bath. 2nd level Tub /shower with seat and grab bar. Patient has elevated toliet seat. Patient doing well one steps at time with rails. Patient has limitations with walking /standing affects ADLS. I with dressing. Patient TKR affects QOL. SOCIAL: lives with daughter. VOCATION: disability - Pain Left Knee Pain Intensity (Out of 10): 9 Pain Intensity Range: 10 - Objective POSTURE: mild forward posture. GAIT: ambulates with fww with decrease stance time LLE with decrease swing phase slow geo with mild forward posture. BALANCE: FAIR with fww. STAIRS: one step at a time with rails. AROM: 7 -95 degrees supine knee flexion. MMT: 12.9 hams ,14.9 quads hip flexion /5. GIRTH PATELLA: 49.1 CM. GIRTH 6 SUPRAPATELLA : 56.6 CM - Balance/Special Test Scores Lower Extremity Functional Score: 22 TUG Test Time Seconds: 12.6 WOMAC Total Score: 75 WOMAC Percentatge: 21.8800 - Goals Goal 1:: Patient be I with Goal Time Frame: 6-8 Weeks Goal 2:: Patient to improve quality of gait with cane community distance to get groceries. Goal Time Frame: 6-8 Weeks Goal 3:: Patient increase AROM knee flexion 0-105 degrees or> to improve stairs alteranating with rail Goal Time Frame: 6-8 Weeks Goal 4:: Patient increase strength quads/hams 50 # to improve vfunction Goal Time Frame: 6-8 Weeks Goal 5:: Patient to improve WOMAC score by 10 points to improve QOL Goal Time Frame: 6-8 Weeks Goal 6:: Patient to improve LFES score by 10 points to improve gait/QOL Goal Time Frame: 6-8 Weeks - Rehabilitation Potential Physical Therapy Diagnosis: This patient underwent s/p left TKR with pain, decrease ROM, strength impairs gait/balance and stairs thus benefit from skilled PT Rehabilitation Potential: Good - Anticipated Interventions Thank you for the opportunity to evaluate your patient. For Medicare and Medicare HMO plans, please review the plan of care and approve it. It will need to be FAXED BACK to us at [phone] for Medicare purposes. For Medicare only, by signing this I certify the plan of care. Please let me know if there are questions or concerns regarding this plan of care. Physician Signature: Date:
--- NOTE | 2021-10-28 14:31 | HP.PT.NRP ---
FRANCIE MORENO was seen in my office for initial evaluation on 07/14/21. The following Plan of Care was established for this patient: Initial Frequency: 1-2x /Week Initial Duration: 6 Weeks This patient was last seen in our office . Pertinent comments regarding their Physical therapy will appear below: Patient seen for PT for left TKR focusing ,ROM ,strengthening ,gait doing well thus is d/c. At this point I will be discontinuing this patient from physical therapy. I would be happy to see this patient again in the future if found appropriate by the physician. Thank you! Chetan Poole, PT, Cert MDT, OCS Balance/Gait/Functional tests - Balance/Special Test Scores Lower Extremity Functional Score: 57 TUG Test Time Seconds: 12.6 Tug Test: <20 sec.=mostly independent WOMAC Total Score: 75 WOMAC Percentage: 21.8800
== END 2021-08-13 19:00 | disposition home or self-care (01) ==
LOC: PT 12:30
PROVIDERS: PCP Family Medicine; Referring Provider Family Medicine Geriatric Medicine; Visit Provider Family Medicine Geriatric Medicine
DX: Z96.652 Presence of left artificial knee joint (principal)
CPT/HCPCS: 97110; 97162

== ENCOUNTER 2021-11-27 13:52 | Outpatient (CLI) | payer MEDICARE, MEDICAID, SELFPAY ==
[2021-11-27 15:03] LABS: AST(SGOT) 15 U/L (15-37); Alanine Aminotransfer ALT/SGPT 19 U/L (13-56); Albumin, Serum 3.7 g/dL (3.2-5.0); Alkaline Phosphatase 109 U/L (45-117); Bilirubin, Direct 0.09 mg/dL (0.00-0.30); Cholesterol 266 mg/dL (200); Globulin 4.3 g/dL (2.2-4.2); High Density Lipoprotein 64 mg/dL; Triglycerides 135 mg/dL; Very Low Density Lipoprotein 27 mg/dL (5-40)
== END 2021-11-27 23:59 | disposition home or self-care (01) ==
LOC: LAB 13:55
PROVIDERS: PCP Family Medicine; Visit Provider Nurse Practitioner Family
DX: I25.10 Atherosclerotic heart disease of native coronary artery without angina pectoris (principal); E78.5 Hyperlipidemia, unspecified; Z95.5 Presence of coronary angioplasty implant and graft
CPT/HCPCS: 36415; 80061; 80076

== ENCOUNTER → 2022-01-27 | Outpatient (CLI) | payer MEDICARE, MEDICAID, SELFPAY ==
[2022-01-27 17:48] LABS: Absolute Lymphocyte Count 1.97 X10^3/uL (0.83-4.51); Absolute Neutrophil Count 5.3 X10^3/uL (2.0-7.7); Basophil# 0.08 X10^3/uL; Eosinophil# 0.16 X10^3/uL; Hematocrit 38.6 % (37-47); Hemoglobin 12.2 g/dL (12.0-15.0); Lymphocyte # 1.97 X10^3/ul (0.83-4.51); Lymphocyte % 24.5 % (19-41); Mean Corp Hgb Conc 31.6 g/dL (32-36); Mean Corpuscular Hgb 28.6 pg (27.0-32.0); Mean Corpuscular Volume 90.6 fL (81-99); Mean Platelet Vol. 10.1 fl (6.2-12.0); Monocyte# 0.46 X10^3/uL; Monocyte% 5.7 % (0-10); NRBC Flagged by Analyzer 0 % (0-5); Neutrophil # 5.33 X10^3/uL (2.7-7.7); Neutrophil % 66.2 % (47-70); Platelet Count 486 K/mm3 (150-450); RBC Distribution Width CV 13.9 % (11.6-14.6); RBC Distribution Width SD 46.1 fl (35.1-43.9); RET-HE 30.5 pg (30-35); Red Blood Count 4.26 M/mm3 (4.2-5.4); Reticulocyte Count 1.68 % (0.5-1.5); White Blood Count 8.1 K/mm3 (4.4-11.0)
[2022-01-27 17:58] LABS: Erythrocyte Sedimentation Rate 43 mm/hr (0-30)
[2022-01-27 18:07] LABS: Vitamin B12 353 pg/mL (211-911); Vitamin D,25 Hydroxy 91.9 ng/mL
[2022-01-27 18:12] LABS: Anion Gap 4 (5-15); BUN 27 mg/dL (7-18); BUN/Creat Ratio 34.6 RATIO (10-20); Calcium,Total 9.6 mg/dL (8.5-10.1); Chloride 107 mmol/L (98-107); Creatinine, Serum 0.78 mg/dL (0.55-1.02); EST Glomerular Filtration Rate 79 mL/min (>60); Est Glom Filt Rate - Afr Amer 96 mL/min (>60); Ferritin 28 ng/mL (8-252); Glucose 89 mg/dL (74-106); Iron 63 ug/dL (50-170); Potassium 4.1 mmol/L (3.5-5.1); Sodium Level 140 mmol/L (136-145); Thyroid Stim Hormone (TSH) 0.89 uIU/mL (0.358-3.74)
== END | disposition home or self-care (01) ==
LOC: MFPLAB 14:20
PROVIDERS: PCP Family Medicine; Referring Provider Family Medicine; Visit Provider Family Medicine
DX: R53.83 Other fatigue (principal); D64.9 Anemia, unspecified
CPT/HCPCS: 36415; 80048; 82306; 82607; 82728; 83540; 84443; 85025; 85045; 85652

== ENCOUNTER → 2022-03-03 | Outpatient (CLI) | payer MEDICARE, MEDICAID, SELFPAY | END | disposition home or self-care (01) | PROVIDERS: PCP Family Medicine; Visit Provider Family Medicine | DX: N39.0 Urinary tract infection, site not specified (principal) | CPT/HCPCS: 87086; 87088 ==

== ENCOUNTER → 2022-11-29 | Outpatient (CLI) | payer MEDICARE, SELFPAY ==
[2022-11-29 17:13] LABS: Absolute Lymphocyte Count 2.07 X10^3/uL (0.83-4.51); Absolute Neutrophil Count 7.1 X10^3/uL (2.0-7.7); Basophil# 0.06 X10^3/uL; Basophil% 0.6 % (0-1); Eosinophil# 0.21 X10^3/uL; Eosinophils% 2.1 % (0-5); Hematocrit 39.3 % (37-47); Hemoglobin 12.7 g/dL (12.0-15.0); Lymphocyte # 2.07 X10^3/ul (0.83-4.51); Lymphocyte % 20.8 % (19-41); Mean Corp Hgb Conc 32.3 g/dL (32-36); Mean Corpuscular Hgb 28.5 pg (27.0-32.0); Mean Corpuscular Volume 88.1 fL (81-99); Mean Platelet Vol. 9.6 fl (6.2-12.0); Monocyte# 0.51 X10^3/uL; Monocyte% 5.1 % (0-10); NRBC Flagged by Analyzer 0 % (0-5); Neutrophil # 7.08 X10^3/uL (2.7-7.7); Platelet Count 454 K/mm3 (150-450); RBC Distribution Width CV 12.9 % (11.6-14.6); RBC Distribution Width SD 41.6 fl (35.1-43.9); Red Blood Count 4.46 M/mm3 (4.2-5.4)
[2022-11-29 17:55] LABS: Erythrocyte Sedimentation Rate 23 mm/hr (0-30)
== END | disposition home or self-care (01) ==
LOC: LAB 16:32
PROVIDERS: PCP Family Medicine; Referring Provider Physician Assistant; Visit Provider Physician Assistant
DX: Z96.652 Presence of left artificial knee joint (principal)
CPT/HCPCS: 36415; 85025; 85652; 86140

== ENCOUNTER → 2022-12-08 | Outpatient (CLI) | payer MEDICARE, MEDICAID, SELFPAY ==
[2022-12-08 19:04] LABS: RBC /Synovial Fluid 0.012 10^6/uL (0)
[2022-12-08 20:14] LABS: AUTO B FLUID DILUENT BKGD CT WBC <0.1 RBC <0.01 (W<.1,R<.01); Lymph 2 %; Neutrophil 98 % (0-25)
[2022-12-08 20:15] LABS: Appearance /Synovial Fluid Turbid (CLEAR); Body Fluid QC Type(s) BF1Q; Color / Synovial Fluid White (Pale Yellow); Source / Synovial Fluid LEFT KNEE
[2022-12-09 13:08] LABS: Pathologist Comment Reviewed
== END | disposition home or self-care (01) ==
LOC: LABSPEC 16:25
PROVIDERS: PCP Family Medicine; Referring Provider Specialist; Visit Provider Specialist
DX: M25.462 Effusion, left knee (principal); Z96.652 Presence of left artificial knee joint
CPT/HCPCS: 87015; 87070; 87075; 87077; 87101; 87116; 87186; 87205; 87206; 89050; 89051

== ENCOUNTER → 2022-12-27 | Outpatient (CLI) | payer MEDICARE, MEDICAID, SELFPAY ==
[2022-12-27 18:00] LABS: Hematocrit 41.1 % (37-47); Hemoglobin 12.8 g/dL (12.0-15.0); Mean Corp Hgb Conc 31.1 g/dL (32-36); Mean Corpuscular Hgb 28.6 pg (27.0-32.0); Mean Corpuscular Volume 91.7 fL (81-99); Mean Platelet Vol. 10.2 fl (6.2-12.0); Platelet Count 489 K/mm3 (150-450); RBC Distribution Width CV 13.8 % (11.6-14.6); RBC Distribution Width SD 46.1 fl (35.1-43.9); Red Blood Count 4.48 M/mm3 (4.2-5.4)
== END | disposition home or self-care (01) ==
LOC: MFPLAB 14:26
PROVIDERS: PCP Family Medicine; Visit Provider Nurse Practitioner Family
DX: I10 Essential (primary) hypertension (principal)
CPT/HCPCS: 36415; 85027

== ENCOUNTER 2022-12-29 08:58 | Inpatient (IN) | payer MEDICARE, MEDICAID, SELFPAY ==
--- NOTE | 2022-12-17 13:15 | PCM.HP.BLA ---
History and Physical History and Physical? Patient Name: Marisol Stone : 1960 From:? JOSE J SNOW PA-C? DATE OF SURGERY:? 12/31/2022 SCHEDULED PROCEDURE:? Explant left total knee implants with placement of antibiotic spacer HISTORY OF PRESENT ILLNESS: Preoperative history and physical exam was performed on December 17, 2022.? This is a 62-year-old female who has had a previous left total knee arthroplasty by Dr. Lalit Charles on June 26, 2021.? Patient was followed postoperatively and recently with repeat x-rays and inflammatory lab work.? Patient does have underlying rheumatoid arthritis.? She has been on methotrexate however she has been on some immunosuppressive medications in the past.? Patient has had progressively worsening pain with weightbearing over the past 6 months.? There is been radiographic evidence of loosening.? She has tried Tylenol and medical dummies for relief.? She denies any recent fevers, chills however she does have hot flashes throughout the day.? She has been using a cane for ambulatory assistance.? Patient does report living with her daughter in the basement.? She has medical history pertinent for rheumatoid arthritis, coronary artery disease, previous heart attack and heart stent in 2016, sleep apnea, borderline anemia.? Patient does see one of the local marketing outreach coordinator Dr. Graves.? We are sending for surgical clearance to the marketing outreach coordinator.? We are also getting surgical clearance from the primary care physician Dr. Odom.? She denies recent chest pain, shortness of breath.? Patient did have aspiration which had positive criteria for intra-articular white blood cell count, PMN percentages, positive alpha defense and increased CRP.? She has positive cultures for Enterococcus faecalis.? After discussion with Dr. Otf Bethea, the patient does wish to proceed with explant left total knee with placement of antibiotic spacer.? She denies past history of DVT or pulmonary embolism. REVIEW OF SYSTEMS: ROS: Const: Reports weight change, but denies change in appetite and fever. CV: Denies chest pain, heart murmur and irregular heartbeat. Resp: Denies cough, pneumonia, shortness of breath, tuberculosis and wheezing. GI: Reports diarrhea, but denies constipation, heartburn, nausea, rectal itching, bloody stools and vomiting. : Denies incontinence. Musculo: Reports gait disturbance, leg swelling, pain, trouble walking and weakness. Skin: Reports tattoo, but denies Raynaud's and history of shingles. Neuro: Reports dizziness but denies ambulatory dysfunction, numbness/tingling and tremor. Psych: Reports anxiety, insomnia and stress. Myles/Lymph: Reports anemia, bleeding/bruising tendency and past transfusion. Reviewed and updated. PAST MEDICAL HISTORY: Advance Care Plan: No Advance Directives Effective Date: 05/14/2020 PMH: Medical Problems: Arthritis - Rheumatoid? Coronary Artery Disease (CAD), Depression, Fibromyalgia, Heart Attack, Hypercholesterolemia, Osteoporosis, Sleep Apnea Covid-19 Vaccinated - (12/11/2020) (01/08/2021) Borderline Anemic - (01/2022) Accidents: RT Ankle - (2018) Surgical Hx: Heart Stent - (2015) RT Total Knee Replacement - (12/01/2020) EDMAR @ [facility] LT Knee, Total Joint Replacement - (06/26/2021) Dr Juan Charles @ [facility] Anesthesia Complications: None Assistive Devices: Glasses, Cane, Walker Reviewed, no changes. SOCIAL HISTORY: SH: Marital: Single.Occupation: Disabled - (2017).Work Status: Disabled.Hand Dominance: Right-handed. Personal Habits:? Cigarette Use: Former.Smokeless Tobacco: Never Used Smokeless Tobacco.E-Cigarette Use: Never used.Alcohol: Has consumed alcohol in the past.Drug Use: Medical Marijuana Card.Enjoy Exercising: Never Exercises. Reviewed and updated. VITALS: Ht: 62.4 Wt: 198lb Wt k.813 BMI: 35.7 BP: 116/74 Pulse: 78 Resp: 18 T: 97.6 T: 36.4C Pain Level: 8 O2SatR: 99 ALLERGIES: No Known Drug Allergy? MEDICATIONS: Cefadroxil 500 mg 1 by mouth three times a day, Tizanidine HCL 4 mg 1 po qd at night, Vitamin D2 2000 Unit 1 po weekly, Tylenol Extra Strength 500 mg as needed, Allie Allergy 60 mg as needed, Lisinopril 20 mg 1 by mouth every day, Aspirin 81 mg prn, Folic Acid 1 mg 1 by mouth every day PRE-OP EXAM:? General appearance:NORMAL? ? ? Other: Eyes: Conjunctivae and lids: NORMAL? Pupils: ERR Ears, Nose, Mouth, and Throat: NORMAL? Other: Inspection of lips, teeth and gums: NORMAL? ?Other: Neck: Examination of neck: no masses noted. Respiratory: Assessment of respiratory effort: NORMAL? ?Other: ?Auscultation of lungs: clear to auscultation no wheezes, rhonchi or rales. Cardiovascular:? Auscultation of heart: regular rate and rhythm, no murmurs, gallops or rubs. PHYSICAL EXAMINATION: Patient currently presents today in a wheelchair during the preoperative visit however she is using a cane for ambulatory assistance.? Left knee has large effusion.? She has increased pain with any weightbearing.? There is pain and tenderness globally throughout the knee.? There is limited range of motion secondary to pain. IMAGING STUDIES: Previous x-rays reveal previous well fixed implant in February 2022 however there is been medial subsidence and anterior subsidence as well as radiographic lucencies along the cement mantle appreciated in May 2022.? There is been progression noted on most recent radiographs.? There is loosening of the tibial baseplate and likely femoral implant. Patient has had positive also defense and aspiration consistent with Enterococcus faecalis Previous CRP was 20.5 IMPRESSION: 1.? 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 Rheumatoid arthritis 3.? Coronary artery disease with previous heart attack and stent placement 2015 4.? Fibromyalgia 5.? Depression 6.? Hypercholesterolemia 7.? Sleep apnea 8.? Order line anemia 9.? Osteoporosis PLAN: Dr. Otf Bethea did discuss and review with the patient all treatment options including surgical versus nonsurgical options.? Patient does wish to proceed with the above-stated procedure.? Potential risks, benefits, and complications of the procedure were discussed in detail including but not limited to , infection, nerve and blood vessel damage, persistent pain, numbness, tingling, paresthesias, blood clot, pulmonary embolism, and requirement for possible further surgery.? The patient expressed full understanding and has no further questions for the doctor.? Patient does agree to proceed with the above-stated procedure and has signed the surgery consent form. Plan for patient for post-operative medications are the following: DVT Prophylaxis: Patient denies past history of DVT or pulmonary embolism.? We will proceed with aspirin 81 mg twice daily for 4 weeks postoperatively.? I also discussed in great detail patient will be on IV antibiotics for 6 weeks postoperatively and she will be following with infectious disease.? Patient currently resides with her daughter who has a full-time working position.? Patient will most likely need to be required to go to [facility] postoperatively for IV antibiotics.? I explained to her that this will be discussed and she will follow with case management postoperatively for appropriate discharge planning.? Explained she will require PICC line post-op for antibiotics. This dictation was created using voice recognition software. Phonetic and/or grammatical errors may exist. ___? I have re-examined the patient.? There are no clinical changes since date of exam. ___? See progress notes for changes. ___? Dictated on admission Date: ? ? ?Time: Signature:
[2022-12-24 14:17] LABS: Albumin, Serum 3.6 g/dL (3.2-5.0); Anion Gap 4 (5-15); BUN 17 mg/dL (7-18); BUN/Creat Ratio 25.7 RATIO (10-20); Calcium,Total 9.9 mg/dL (8.5-10.1); Chloride 105 mmol/L (98-107); Creatinine, Serum 0.66 mg/dL (0.55-1.02); EST Glomerular Filtration Rate 96 mL/min (>60); Est Glom Filt Rate - Afr Amer 116 mL/min (>60); Glucose 93 mg/dL (74-106); Potassium 3.9 mmol/L (3.5-5.1); Sodium Level 138 mmol/L (136-145)
[2022-12-24 14:17] LABS: International Normalized Ratio 1.1; Magnesium 1.9 mg/dL (1.6-2.6); Prothrombin Time (Protime)PT. 13.7 SECONDS (11.7-14.9)
[2022-12-24 14:18] LABS: Partial Thromboplast Time 28.8 Seconds (24.1-36.2)
[2022-12-27 09:56] LABS: AST(SGOT) 14 U/L (15-37); Alanine Aminotransfer ALT/SGPT 16 U/L (13-56); Albumin, Serum 3.6 g/dL (3.2-5.0); Alkaline Phosphatase 90 U/L (45-117); Bilirubin, Direct < 0.05 mg/dL (0.00-0.30); Globulin 4.1 g/dL (2.2-4.2); Protein, Total 7.7 g/dL (6.4-8.2)
[2022-12-29] VITALS (12 sets, daily range): BP systolic 93–146; BP diastolic 54–95; PULSE 56–80; RESP 12–18; TEMP 36.2–36.9; O2SAT 94–100; BMI 36.1; BMI 36.0
[2022-12-29] MEDS: Lactated Ringers 1,000 ML 999 ML IV (10:34)
[2022-12-29] MEDS: Magnesium 2 GM for ERAS IV (10:35)
[2022-12-29] MEDS: Gabapentin 600 MG Tablet PO (10:56)
[2022-12-29] MEDS: Acetaminophen 500 MG Tablet 1000 MG PO ×2 (10:56→21:04)
[2022-12-29] MEDS: Celecoxib 200 MG Capsule 400 MG PO (11:00)
[2022-12-29 11:25] LABS: Bedside Glucose 78 mg/dL (74-106)
[2022-12-29] MEDS: Cefazolin 2 GM in 0.9% Normal Saline 100 ML IV (13:30)
[2022-12-29] MEDS: dexAMETHasone 10 MG/ML Vial IV (14:00)
[2022-12-29] MEDS: Vancomycin IV 1,000 MG/20 ML Vial 6000 MG OPERA.SITE (15:04)
[2022-12-29] MEDS: Cefazolin 1 GM/5 ML Vial 2 GM OPERA.SITE (15:04)
--- NOTE | 2022-12-29 15:19 | OP.PCM_ITS ---
Report of Operation Date of Procedure: 12/29/22 Pre-Operative Diagnosis: Left knee periprosthetic joint infection Post-Operative Diagnosis: Left knee periprosthetic joint infection Surgery/Procedure Performed:: Left knee explant total knee replacement with placement of articulating antibiotic spacer Left knee placement of nonbiodegradable antibiotic delivery system (femoral and tibial cement dowels) Description of Surgical Findings:: Gross evidence of infection, gross loosening of the femoral and tibial implants and bony erosions noted in femur and tibia Surgeon: Otf Bethea piece work inspector: Leonel Dill Type of Anesthesia: Spinal Anesthesiologist: Ramirez Martinez Special Medications: 2 g Ancef preoperatively Specimen's removed: 3 separate specimens were sent to microbiology Estimated Blood Loss (mL): 150 Fluids Replaced: 1300 mL crystalloid Description of Procedure: Brief history operative indications: 62-year-old F with pain and swelling with evidence of loosening in the left knee had a total knee replacement in June 2021. Patient presented to my care with after mentioned symptoms and positive lab work. We obtain medical clearance at that point. Based on her history and meeting appropriate cirteria for PJI I did recommend a two-stage revision. After discussion of risks and benefits including reinfection, continued infection, blood loss, DVTs, PEs, nervous damage, fractures with explantion infection, continued and super infection, wound healing complication and the risk of anesthesia including loss of life patient was able to proceed and signed an informed consent. Procedure: On the date of procedure patient's L lower extremity was marked in the preoperative area. The patient was then taken back to the operating room where the patient was placed on the table in the supine position. All bony prominences were identified a well-padded. Anesthesia assumed control of the C-spine and airway and remained controlled throughout the remainder of the procedure. A t ourniquet was placed on the L upper thigh and the leg was prepped in a sterile fashion. The surgeon then scrubbed at this time. Upon reentering the room L lower extremity was draped in a standard orthopedic fashion. A timeout was then called and everyone agreed upon the side, the site, the procedure to be performed, patient's identity and antibiotics given. The leg was elevated for period of time and the tourniquet was placed up to 250 mmHg with the knee in flexion. A midline skin incision was made using the previous incision and extending it proximally and distally to identify normal tissue planes. Medial and lateral flaps were developed appropriate releases. The standard medial parapatellar arthrotomy was made and the patella was subluxed laterally. At this time an aggressive synovectomy was performed re-creating the medial gutter first, then the suprapatellar pouch than the lateral gutter. Once this was completed the knee was flexed up an osteotome was used to remove the tibial polyethylene. The remainder of the synovium was debrided. The standard deep MCL release was done and the patella scar pad was resected and lateral releases were performed. Next our attention was directed to the femur. Flexible osteotomes and TPS saw were used to systematically break up the bone cement/implant interface. Once we had adequately disrupted this interface bone tamp was used to remove the implant. This was done with minimal bone loss on the implant however there was significant areas of bone loss especially in the posterior lateral femoral condyle.. At this time attention was now directed towards the proximal tibia. Flexible osteotomes and TPS saw were used to systematically break up the bone cement/implant interface. Once we had adequately disrupted this interface bone tamp was used to remove the implant. This was done with minimal bone loss. Attention was directed then towards the patella where the patella implant was removed using osteotomes and TPS saw. After this was completed we carefully debrided any synovial membrane from the distal femur as well as proximal tibia. Using a bur and curettes to remove any of this. Once we are happy with this we then flexed the knee at 90 degrees and made a cut neutral to the tibial axis on the tibia to clean up the tibia. We then debrided the remainder of the posterior knee. Tourniquet was let down hemostasis was obtained. Tourniquet was placed back up as we then trialed. We trialed a size 1 femur which showed an adequate fit as well as a 16 mm tibia. After we are happy with our trial implants the wound was copiously irrigated out with 6 L of normal saline under low-pressure lavage while two antibiotic cement dowels were created on the back table. Femoral and tibial antibiotic cement dowels were then placed in the canals after irrigating out the knee. At this time the cement was mixed with the tibia and the tibia was connected to the cement dowel for a stem. The knee was flexed exposing the tibia and the tibia was cemented into place with cement mixing in a portion of the antibiotics. Once this was set we then mixed our cement and mixing for the femur to be carefully exposed the femur and try to pack cement into the bone defect. We then placed cement on the end of the femur and cemented the femur into place. Knee was placed in extension. Excess cement was removed from both the femur and the tibia. The cement was allowed to cure with the knee in extension. Once the final components were placed a dilute Betadine solution was used to irrigate out the wound for 3 minutes followed by chlorhexidine solution finally the wound was copiously irrigated with normal saline solution. A Hemovac drain was placed superior laterally. The wound was closed in a layer paul fashion using #1 vicryl interrupted sutures for the arthrotomy, 2-0 interrupted Vicryl for the subcuticular layer and nylon sutures for final skin closure. A sterile compressive dressing was then placed. The patient was then awakened from anesthesia, transferred to the [facility] and transferred to the PACU for recovery. Post op plan DVT ppx: 81 mg aspirin twice daily, thigh high compression stockings Follow up: in office in 2 weeks for wound check PT: to start POD #0 at hospital. Patient will be toe-touch weightbearing for 2 weeks followed by partial weightbearing. At 2 weeks she will also start range of motion exercises. Currently she will be in a knee immobilizer with no flexion of the knee as the wound begins to heal. Infection: Infectious diseases consulted for antibiotic management. My physician recruitment assistant was a vital part of this case. He was important in appropriate retraction during the case, and protection of soft tissues during bony cuts. His intimate knowledge of the case and my steps aided in safe and expedient completion of the procedure as well as appropriate position of the leg during the case. He was also vital in assisting with closure under my direct supervision. Implants Used: Kenyon 3 x 1 x 16 mm all polyethylene tibia, size 1 CR Triatholon femur Complications No intraoperative complications Admit VTE Documentation VTE Present on Admission: No VTE Mechan Device Prophylaxis: SCD's and Thigh High BRUCE Hose VTE Pharm Prophylaxis ordered?: Yes
--- NOTE | 2022-12-29 16:35 | RAD_ITS ---
EXAM: XR LEFT KNEE, 1 OR 2 VIEWS CLINICAL INDICATION: post op -- AP and Lateral xray of operative knee in PACU TECHNIQUE: Frontal and/or lateral views of the left knee. This report was created using [facility] report Accredible technology. COMPARISON: None. FINDINGS: BONES/JOINTS: There is a prosthesis seen of the distal femur. There is gas in the overlying soft tissues due to the recent surgery. There is an orthopedic pins seen within the tibial canal with orthopedic cement also present. No acute fracture. No subluxation. Normal alignment. Preservation of the joint space. No sclerotic or destructive changes observed. SOFT TISSUES: See above. RAD/Knee 1 or 2 Views IMPRESSION: The femoral component of a total knee prosthesis in good position. Electronically Signed: Chris Collier MD at 17:47 EDT ,
[2022-12-29 16:50] LABS: Bedside Glucose 100 mg/dL (74-106)
[2022-12-29] MEDS: Lactated Ringers 1,000 ML 125 ML IV (17:36)
[2022-12-29] MEDS: oxyCODONE 5 MG Tablet PO ×2 (19:07→20:13)
[2022-12-29] MEDS: Aspirin 81 MG TAB.CHEW PO (19:08)
[2022-12-29] MEDS: Ensure Surgery 237 ML LIQUID PO (19:10)
--- NOTE | 2022-12-29 19:38 | PCM.PN.HOSP ---
Reason for Visit Reason for Visit: Total Joint Infection Subjective Subjective Patient is a 62-year-old white female who has had previous left total knee arthroplasty done by Dr. Nathan light on 04/26/2021. Patient was followed up recently with repeat x-rays and inflammatory lab work secondary to pain. She does have rheumatoid arthritis at baseline and takes methotrexate and has been on immunosuppressive therapy otherwise in the past however is not currently. She was suffering from progressively worsening pain with weightbearing over the last 6 months and there was some radiographic evidence of loosening of the artificial joint. She denied fevers or chills but has required a cane for ambulatory assistance. She had joint aspiration which demonstrated increased intra-articular white blood cell count and an increased ESR and CRP. Cultures were positive for Enterococcus faecalis. She was brought to the hospital today for an explant of the left total knee with placement of antibiotic spacer. We have been consulted in the postoperative period for medical management of her chronic medical issues. I evaluated the patient postoperatively up on the medical floor. She was on complaining of pain in her knee postoperatively. It was just medicated with 5 mg and nursing was getting her another 5 mg per orders. She had some questions with regards to discharge planning. It sounds as if she will be discharged to the TCU. I told her she would stay here until Dr. Bethea felt she was medically stable for discharge and then depending on her insurance she would be able to go to transitional care unit. She was concerned that she may need to be there 6 weeks however it sounds like she will need 6 weeks of antibiotics and that does not necessarily mean she will need to be in the TCU for that length of time. She voiced understanding and stated she would discuss the matter further tomorrow with Dr. Bethea. She will need precertification prior to discharge as she has a commercial Medicare product. Objective Data Objective Data Vital Signs: Vital Signs Temp Pulse Resp BP Pulse Ox O2 Del Method O2 Flow Rate 97.8 F 68 16 108/64 94 Room Air 4 12/29/22 18:33 12/29/22 18:33 12/29/22 18:33 12/29/22 18:33 12/29/22 18:12/29/22 18:12/29/22 17:21 Oxygen Flow Rate (L/min) 4 Oxygen Delivery Method Room Air Weight: 89.358 kg Body Mass Index (BMI) 36.0 Intake & Output: Intake and Output for Last 24 Hours 12/27/22 12/28/22 12/29/22 23:59 23:59 23:59 Intake Total 1933 Balance 1933 Lab / Micro Data Result Diagrams: 12/24/22 13:48 Labs: Laboratory Results - last 24 hr 12/29/22 10:28: POC Glucose 78 12/29/22 16:31: POC Glucose 100 Micro: Microbiology 12/24/22 13:48 Nasal Secretion Nasal Screen MRSA/MSSA - Final Radiography Diagnostic Testing: Radiology Impression Knee X-Ray 12/29/22 16:35 IMPRESSION: The femoral component of a total knee prosthesis in good position. Electronically Signed: Chris Collier MD at 17:47 EDT , Physical Exam Const alert, oriented x3, no apparent distress and well nourished Constitutional Narrative: Upper middle-aged, obese, white female, sitting up in bed, room is dark and television is on, patient appears comfortable and nontoxic HEENT head/scalp atraumatic and moist oral mucous membranes HEENT Narrative: Mallampati 3, no thrush Resp normal respiratory effort, no retractions, no use of accessory muscles and clear to auscultation bilaterally Auscultation: Negative for rales, rhonchi or wheezes Cardio regular rate, regular rhythm, S1 normal heart sound, S2 normal heart sound, no murmurs, no rub, no gallops and no clicks GI normal to inspection, nondistended, normoactive bowel sounds, soft to palpation and non-tender Extremity no clubbing, cyanosis or edema Extremity Narrative: 2+ pedal pulses, left lower extremity leg brace in place with BRUCE hose as well bilateral lower extremities Neuro oriented x3, CN's II-XII intact bilaterally and no focal motor deficits Speech: speech normal Psych Psych Narrative: Affect is flat and mood seems depressed Assessment & Plan Assessment/Plan (1) Infected prosthetic knee joint: PLAN: Plan Left knee periprosthetic joint infection -Postop day 0 from left knee explant of total knee replacement with placement of an articulating antibiotic spacer -Pain management per primary -Toe-touch weightbearing x2 weeks followed by partial weightbearing -Range of motion exercises to start at 2 weeks -Continue knee immobilizer with no flexion -ID has been consulted for antibiotic management -Initial cultures show Enterococcus faecalis -PT/OT consultation for gait training -Case management/social work for discharge planning to skilled facility--> patient would like to transition to TCU once medically stable -Will need pre-CERT as patient has a commercial Medicare product CAD/HPL/HTN -SHILPI-LAD w/? 2.75 x 16 mm Promus Premier 04/26/2016 -Continue aspirin--> will be on 81 mg twice daily for DVT prophylaxis per orthopedic surgery recommendation -Continue lisinopril -Patient is not on statin due to intolerance -Clinically stable at this time Vitamin D deficiency -Continue ergocalciferol every Tuesday Seasonal allergies -Continue fexofenadine Rheumatoid arthritis -Patient has been on Biologics and methotrexate previously -Does not currently appear to be on anything -Pain medication per primary service GERD -Patient does not on any med occasion at this time Obesity -BMI 36 -Recommend weight loss -Complicates treatment, prognosis, outcomes DVT prophylaxis -81 mg aspirin p.o. twice daily per orthopedic surgery recommendations Charges/Coding Visit Charges Inpatient E&M: 06176 Subs Hosp L2
[2022-12-29] MEDS: tiZANidine HCl 2 MG Tablet 4 MG PO (21:11)
[2022-12-29] MEDS: Cefazolin 1 GM/50 ML BAG IV (21:12)
[2022-12-30] VITALS (9 sets, daily range): BP systolic 120–150; BP diastolic 68–85; PULSE 65–94; RESP 12–16; TEMP 36.4–36.8; O2SAT 84–100
[2022-12-30] MEDS: oxyCODONE 5 MG Tablet PO ×4 (01:07→21:03)
[2022-12-30] MEDS: Morphine 2 MG/ML Syringe IV (03:02)
[2022-12-30] MEDS: Acetaminophen 500 MG Tablet 1000 MG PO ×3 (04:59→21:14)
[2022-12-30] MEDS: Cefazolin 1 GM/50 ML BAG IV (05:25)
[2022-12-30 06:27] LABS: Hematocrit 30.5 % (37-47); Hemoglobin 9.5 g/dL (12.0-15.0); Mean Corp Hgb Conc 31.1 g/dL (32-36); Mean Platelet Vol. 9.7 fl (6.2-12.0); Platelet Count 281 K/mm3 (150-450); RBC Distribution Width CV 13.9 % (11.6-14.6); RBC Distribution Width SD 46.6 fl (35.1-43.9); Red Blood Count 3.28 M/mm3 (4.2-5.4); White Blood Count 9.8 K/mm3 (4.4-11.0)
[2022-12-30 06:57] LABS: Anion Gap 3 (5-15); BUN 15 mg/dL (7-18); BUN/Creat Ratio 21.9 RATIO (10-20); Calcium,Total 8.4 mg/dL (8.5-10.1); Chloride 104 mmol/L (98-107); Creatinine, Serum 0.68 mg/dL (0.55-1.02); EST Glomerular Filtration Rate 92 mL/min (>60); Est Glom Filt Rate - Afr Amer 111 mL/min (>60); Estimated Creatinine Clearance 66.97 ml/min; Glucose 131 mg/dL (74-106); Potassium 3.9 mmol/L (3.5-5.1); Sodium Level 135 mmol/L (136-145)
[2022-12-30] MEDS: Ondansetron 4 MG/2 ML Vial IV ×2 (07:44→11:05)
--- NOTE | 2022-12-30 10:50 | PN.ORTHO_ITS ---
Subjective Subjective The patient was sitting in bed upon examination. Patient denies any chest pain, shortness of breath, dizziness, lightheadedness, or calf pain. Patient has been having postoperative nausea and vomiting. Case was discussed with medicine. Patient does admit that she has had underlying nausea in the mornings and was recently taken off of her omeprazole due to her methotrexate treatment. Patient has had hard time taking any oral medications and her pain has been elevated. Infectious disease has been consulted for appropriate management with IV antibiotics. Patient will require PICC line. Patient will also require postoperative assistance and case management is currently involved. Objective Data Objective Data Vital Signs: Vital Signs Temp Pulse Resp BP Pulse Ox O2 Del Method O2 Flow Rate 97.8 F 88 16 138/82 H 97 Nasal Cannula 2 12/30/22 09:16 12/30/22 09:16 12/30/22 09:16 12/30/22 09:16 12/30/22 09:16 12/30/22 09:16 12/30/22 09:16 Oxygen Flow Rate (L/min) 2 Oxygen Delivery Method Nasal Cannula Weight: 89.358 kg Body Mass Index (BMI) 36.0 Intake & Output: Intake and Output for Last 24 Hours 12/28/22 12/29/22 12/30/22 23:59 23:59 23:59 Intake Total 2292.33 / 2692.33 750 / 750 Output Total 175 / 175 Balance 2292.33 / 2517.33 575 / 575 Lab / Micro Data Result Diagrams: 12/30/22 06:15 12/30/22 06:15 Labs: Laboratory Results - last 24 hr 12/29/22 10:28: POC Glucose 78 12/29/22 16:31: POC Glucose 100 12/30/22 06:15: WBC 9.8, RBC 3.28 L, Hgb 9.5 L, Hct 30.5 L, MCV 93.0, MCH 29.0, MCHC 31.1 L, RDW Std Deviation 46.6 H, RDW Coeff of Daphne 13.9, Plt Count 281, MPV 9.7 12/30/22 06:15: Sodium 135 L, Potassium 3.9, Chloride 104, Carbon Dioxide 28.0, Anion Gap 3 L, BUN 15, Creatinine 0.68, Estim Creat Clear Calc 66.97, Est GFR (MDRD) Af Amer 111, Est GFR (MDRD) Non-Af 92, BUN/Creatinine Ratio 21.9 H, Glucose 131 H, Calcium 8.4 L Micro: Microbiology 12/29/22 15:48 Incision/Surgical Site Wound Culture - Preliminary No growth-Final to follow 12/29/22 15:38 Incision/Surgical Site Wound Culture - Preliminary No growth-Final to follow 12/29/22 15:37 Incision/Surgical Site Wound Culture - Preliminary GPC Poss Enterococcus sp 12/24/22 13:48 Nasal Secretion Nasal Screen MRSA/MSSA - Final Radiography Diagnostic Testing: Radiology Impression Knee X-Ray 12/29/22 16:35 IMPRESSION: The femoral component of a total knee prosthesis in good position. Electronically Signed: Chris Collier MD at 17:47 EDT , Physical Exam Narrative Vital signs stable and afebrile. Patient is still currently on 2 L. Discussed with nursing and she does drop to the mid 80s when sleeping. Patient does have underlying sleep apnea Knee immobilizer is in place for left lower extremity. Patient is able to plantarflex and dorsiflex actively. Sensation is intact to light touch to saphenous, sural, superficial and deep peroneal, and tibial distribution. Dressing is clean dry and intact. Negative Homans bilaterally, negative signs and symptoms of DVT. Const alert and oriented x3 Assessment & Plan Assessment/Plan (1) Infected prosthetic knee joint: PLAN: 1. S/P left knee explant total knee replacement with placement of articulating antibiotic spacer with nonbiodegradable antibiotic delivery system POD #1 2. Continue Pain Medications: Tylenol, oxycodone 3. DVT Prophylaxis: Take 81 mg aspirin twice daily for 4 weeks postoperatively for DVT prophylaxis. Patient denies past history of DVT or pulmonary embolism 4. PT/OT: Patient will continue with physical therapy postoperatively with restrictions: Currently toe-touch weightbearing for 2 weeks with no range of motion of the left knee. Continue with the knee immobilizer. 5. H & H: 9.5/30.5, asymptomatic. Postoperative anemia secondary to acute blood loss from surgery without any intra operative complications. Patient currently takes folic acid. We will add in ferrous sulfate. 6. Infectious disease: Consult has been placed for management of antibiotics. Patient will require 6 weeks IV antibiotics and PICC line. Appreciate input with appropriate antibiotic coverage. Patient did have wound culture with Enterococcus species. Preoperatively patient had aspiration for Enterococcus faecalis. 7. Continue postoperative medical management per medicine: Case was discussed reviewed with medicine. Patient is having difficulty with nausea and vomiting. She is currently involved and will add in Protonix IV. Patient has had IV famotidine and she will increase this dose 1 time. Patient has had chronic nausea in the mornings in which she was taken off of her omeprazole due to methotrexate treatment. Patient also has underlying sleep apnea and will continue progressing off oxygen. 8. Encouraged Incentive Spirometry 9. Disposition: Patient will require postoperative assistance as she will be getting 6 weeks of IV antibiotics. Case management is currently involved. Would possibly like patient to go to the transitional care unit at [facility] as this will be helpful with infectious disease involved. Patient will require PICC line. Appreciate input on discharge planning for IV antibiotics. We will continue with input with regards to the nausea from medicine. I have reviewed the [place] Automated Rx Reporting System (OARRS) report for this patient for refill pattern and other prescriber involvement as part of the appropriate surveillance for the provision of acute and chronic controlled medications. The report was requested and reviewed on the date of this entry and was considered in the prescribing process. This dictation was created using voice recognition software. Phonetic and/or grammatical errors may exist.
--- NOTE | 2022-12-30 10:58 | CASEMGMT ---
Social Work Assessment SW to room to meet with patient for initial transition planning assessment. SW introduced self and role at [facility]. Pt voices understanding and consents to assessment. Pt resting in bed in no distress at this time. Pt is A/O at this time and answers all questions appropriately. Care providers, pharmacy, and demographics verified/updated at this time. PCP: Dr. Odom Specialists: Dr. Graves, cardiology - Dr. Mills, RA - Dr. Bethea, Ortho Preferred Pharmacy: [facility] Insurance: [facility] Prescription Benefit: Yes Living Will/HPOA: NO, pt states she is not up to discussing this at this time LNOK: Dgt Heidy Martin assists as needed, lives with dgt Richelle Living Arrangements: Pt lives with her daughter Richelle in a split level home. Richelle works inspector timers and is unable to assist pt. Pt states her room is on the bottom floor with no steps to enter, but if she wants to shower or go to Kitchen she must go upstairs. Pt was independent with all care needs previously. Transportation: Pt states drives self and states no transportation concerns at this time. DME: walker, rollator, wheelchair, shower chair Pt states she will need 6 weeks of antibiotics at discharge and cannot return home. Pt requesting admission to TCU. A list of SNF providers including quality and resource use data and consistent with the patient?s preferred geographic region, medical needs, and insurance network were provided from the [employer] Guide. Pt continues to choose TCU. Referral made to Karly in TCU. SW will await determination. PLAN: TCU, pending acceptance and precert FLORENCE Paul
[2022-12-30] MEDS: 0.9% Saline Lock 10 ML Syringe IV ×2 (11:05→13:02)
[2022-12-30] MEDS: Lisinopril 10 MG Tablet 20 MG PO (12:35)
[2022-12-30] MEDS: Loratadine 10 MG Tablet 5 MG PO (12:35)
[2022-12-30] MEDS: Folic Acid 1 MG Tablet PO (12:35)
[2022-12-30] MEDS: Aspirin 81 MG TAB.CHEW PO ×2 (12:36→17:08)
[2022-12-30] MEDS: Famotidine 20 MG Tablet PO (12:36)
--- NOTE | 2022-12-30 12:36 | PN.HOSP_ITS ---
Reason for Visit Reason for Visit: Diagnoses Infection and inflammatory reaction due to other internal joint prosthesis, ini tial encounter (12/29/22) Encounter for other preprocedural examination (12/29/22) Presence of unspecified artificial knee joint (12/29/22) Subjective Subjective Feeling somewhat nauseous this a.m. Reports that every morning she is usually nauseous but feels slightly more so today. Does report that she was taken off of her omeprazole when her medicines were changed on as an outpatient and has been having worsening GERD since then needing a lot of Rolaids and currently is having GERD symptoms. Objective Data Objective Data Vital Signs: Vital Signs Temp Pulse Resp BP Pulse Ox O2 Del Method O2 Flow Rate 98.2 F 92 16 138/70 H 97 Room Air 2 12/30/22 11:29 12/30/22 11:29 12/30/22 11:29 12/30/22 11:29 12/30/22 11:29 12/30/22 11:29 12/30/22 09:34 Oxygen Flow Rate (L/min) 2 Oxygen Delivery Method Room Air Weight: 89.358 kg Body Mass Index (BMI) 36.0 Intake & Output: Intake and Output for Last 24 Hours 12/28/22 12/29/22 12/30/22 23:59 23:59 23:59 Intake Total 2292.33 / 2692.33 850 / 850 Output Total 225 / 225 Balance 2292.33 / 2517.33 625 / 625 Lab / Micro Data Result Diagrams: 12/30/22 06:15 12/30/22 06:15 Labs: Laboratory Results - last 24 hr 12/29/22 16:31: POC Glucose 100 12/30/22 06:15: WBC 9.8, RBC 3.28 L, Hgb 9.5 L, Hct 30.5 L, MCV 93.0, MCH 29.0, MCHC 31.1 L, RDW Std Deviation 46.6 H, RDW Coeff of Daphne 13.9, Plt Count 281, MPV 9.7 12/30/22 06:15: Sodium 135 L, Potassium 3.9, Chloride 104, Carbon Dioxide 28.0, Anion Gap 3 L, BUN 15, Creatinine 0.68, Estim Creat Clear Calc 66.97, Est GFR (MDRD) Af Amer 111, Est GFR (MDRD) Non-Af 92, BUN/Creatinine Ratio 21.9 H, Glucose 131 H, Calcium 8.4 L Micro: Microbiology 12/29/22 15:48 Incision/Surgical Site Wound Culture - Preliminary No growth-Final to follow 12/29/22 15:38 Incision/Surgical Site Wound Culture - Preliminary No growth-Final to follow 12/29/22 15:37 Incision/Surgical Site Wound Culture - Preliminary GPC Poss Enterococcus sp 12/24/22 13:48 Nasal Secretion Nasal Screen MRSA/MSSA - Final Radiography Diagnostic Testing: Radiology Impression Knee X-Ray 12/29/22 16:35 IMPRESSION: The femoral component of a total knee prosthesis in good position. Electronically Signed: Chris Collier MD at 17:47 EDT , Physical Exam Narrative General: Alert, oriented HEENT: Atraumatic, normocephalic Eyes: Anicteric, normal conjunctiva, extraocular movements grossly intact Neck: Supple Respiratory: Clear to auscultation bilaterally, normal respiratory effort Cardiovascular: Regular rate and rhythm GI: Soft, nontender, nondistended Extremities: Status post left knee explant Musculoskeletal: Moving extremities in bed Neuro: No overt focal neurological deficits Skin: No rashes appreciated Psych: Cooperative Assessment & Plan Assessment/Plan (1) Infected prosthetic knee joint: PLAN: Plan Left knee periprosthetic joint infection -Postop day 0 from left knee explant of total knee replacement with placement of an articulating antibiotic spacer -Pain management per primary -Toe-touch weightbearing x2 weeks followed by partial weightbearing -Range of motion exercises to start at 2 weeks -Continue knee immobilizer with no flexion -ID has been consulted for antibiotic management -Initial cultures show Enterococcus faecalis -PT/OT consultation for gait training -Case management/social work for discharge planning to skilled facility--> patient would like to transition to TCU once medically stable -Will need pre-CERT as patient has a commercial Medicare product -12/30: ID evaluated. PICC line placed and 6 weeks of IV ampicillin ordered Nausea -Endorses feeling nauseous in the mornings but slightly worse this a.m. -Has Zofran as needed -Has reflux and does seem to be contributory, given her difficulty to tolerate p.o. due to the nausea will give IV Protonix CAD/HPL/HTN -SHILPI-LAD w/? 2.75 x 16 mm Promus Premier 04/26/2016 -Continue aspirin--> will be on 81 mg twice daily for DVT prophylaxis per orthopedic surgery recommendation -Continue lisinopril -Patient is not on statin due to intolerance -Clinically stable at this time Vitamin D deficiency -Continue ergocalciferol every Tuesday Seasonal allergies -Continue fexofenadine Rheumatoid arthritis -Patient has been on Biologics and methotrexate previously -Does not currently appear to be on anything -Pain medication per primary service GERD -Patient does not on any med occasion at this time Obesity -BMI 36 -Recommend weight loss -Complicates treatment, prognosis, outcomes DVT prophylaxis -81 mg aspirin p.o. twice daily per orthopedic surgery recommendations Charges/Coding Visit Charges Inpatient E&M: 14828 Subs Hosp L2
[2022-12-30] MEDS: Ensure Surgery 237 ML LIQUID PO ×2 (12:41→17:08)
--- NOTE | 2022-12-30 12:45 | CASEMGMT ---
Social Work TCU is able to accept pt and precert has been started. Pt updated and agreeable with discharge plan. Plan: TCU, pending precert FLORENCE Paul
--- NOTE | 2022-12-30 13:07 | PCM.CONS.GEN ---
Assessment & Plan Assessment/Plan (1) Infected prosthetic knee joint: PLAN: enterococcus L knee PJI - Had aspiration done early December, cx showed enterococcus. Has been on cefadroxil for past 2 weeks without improvement. Cephalosporins do not have coverage for enterococcus. Taken to OR 12/29/[address] Bethea for spacer placement. Surg cx now with enterococcus-like seen. Will order picc and 6 weeks iv ampicillin, stop date 02/09/23 with weekly labs. If she goes to TCU, I can follow here there, otherwise ID appt in 2 weeks. Wrote for abx and labs. Will follow, thank you, d/w corrections caseworker HPI Consult Data Date of Consult: 12/30/22 HPI Narrative Reason for Consultation: PJI HPI Narrative: FRANCIE MORENO, is a 62 F who presented with one year progressive pain, redness, and swelling of L knee with prior replacement. No fever, chills, night sweats. No drainage. Had aspiration done 3-4 weeks ago, cx showed enterococcus. Has been on cefadroxil for past 2 weeks without improvement. Taken to OR 12/[address] Bethea for spacer placement. Full ROS performed and neg except as noted above. ON LICENSE OF [facility] Medical History Allergic rhinitis Allergic rhinitis Ambulates with cane Anemia Anxiety Arthritis Atherosclerosis of coronary artery of [place] heart without angina pectoris Back pain Cardiology follow-up encounter Chronic headaches Coronary artery disease Debility Depression Essential hypertension Fibromyalgia Former smoker Gastric reflux Gastroesophageal reflux disease High cholesterol History of echocardiogram History of heart attack History of non-ST elevation myocardial infarction (NSTEMI) (04/26/16) History of pain when walking History of stress test Hypertension Marijuana use Obesity ANN (obstructive sleep apnea) Osteoarthritis of both knees Rheumatoid arthritis Rheumatoid arthritis Septic arthritis Shortness of breath on exertion Sleep apnea Syncope Uses wheelchair Vitamin D deficiency Vitamin D deficiency Walker as ambulation aid Wears glasses Home Medications fexofenadine 60 mg tablet 60 mg PO DAILY PRN Allergies 06/11/20 [History Last Taken 06/25/21 08:00] tizanidine 4 mg tablet 4 mg PO QHS muscle relaxer 07/07/20 [History Last Taken 06/25/21 08:00] acetaminophen 500 mg tablet 1,000 mg PO Q8 PRN Pain #90 tabs 05/27/21 [Rx Last Taken 06/25/21 15:00] ergocalciferol (vitamin D2) 1,250 mcg (50,000 unit) capsule 50,000 unit PO Mejia@1000 supplement 06/29/21 [History Last Taken Unknown] aspirin 81 mg tablet,delayed release (Adult Low Dose Aspirin) 81 mg PO DAILY Check with primary doctor 02/25/22 [History Last Taken 12/25/22] folic acid 1 mg tablet 1 mg PO DAILY Check with primary doctor 12/22/22 [History Last Taken Unknown] lisinopril 10 mg tablet 20 mg PO DAILY Check with primary doctor 12/22/22 [History Last Taken 12/29/22] ampicillin sodium 2 gram solution for injection 2 g IV Q6 41 days #164 ea 12/30/22 [Rx Last Taken Unknown] Allergy/AdvReac Type Severity Reaction Status Date / Time No Known Allergies Allergy Verified 12/29/22 10:36 Family History Mother Hypertension CVA (cerebral vascular accident) Sister Cancer Father Heart disease Surgical History History of cardiac catheterization History of coronary artery stent placement (04/26/16) History of total left knee replacement (2020) History of total right knee replacement Hx of colonoscopy Status post incision and drainage Social History household members: children Smoking Status: Former smoker how long ago did patient quit smokin years ago alcohol intake: current alcohol intake frequency: holidays/special occasions only substance use type: does not use caffeine: Yes Type: carbonated beverages and coffee Physical Exam Const alert, oriented x3 and no apparent distress General Appearance: cooperative HEENT normocephalic and head/scalp atraumatic Eyes PERRL and EOMs intact bilaterally Neck supple and No nodes Resp normal air movement and clear to auscultation bilaterally Cardio regular rate and regular rhythm GI soft to palpation, non-tender and non-distended Extremity General Extremity: Negative for edema Skin Skin Narrative: L knee wrapped Neuro CN's II-XII intact bilaterally Lab / Micro Data Attestation: I reviewed the patient's lab results. Result Diagrams: 12/30/22 06:15 12/30/22 06:15 Labs: Laboratory Results - last 24 hr 12/29/22 16:31: POC Glucose 100 12/30/22 06:15: WBC 9.8, RBC 3.28 L, Hgb 9.5 L, Hct 30.5 L, MCV 93.0, MCH 29.0, MCHC 31.1 L, RDW Std Deviation 46.6 H, RDW Coeff of Daphne 13.9, Plt Count 281, MPV 9.7 12/30/22 06:15: Sodium 135 L, Potassium 3.9, Chloride 104, Carbon Dioxide 28.0, Anion Gap 3 L, BUN 15, Creatinine 0.68, Estim Creat Clear Calc 66.97, Est GFR (MDRD) Af Amer 111, Est GFR (MDRD) Non-Af 92, BUN/Creatinine Ratio 21.9 H, Glucose 131 H, Calcium 8.4 L Micro: Microbiology 12/29/22 15:48 Incision/Surgical Site Wound Culture - Preliminary No growth-Final to follow 12/29/22 15:38 Incision/Surgical Site Wound Culture - Preliminary No growth-Final to follow 12/29/22 15:37 Incision/Surgical Site Wound Culture - Preliminary GPC Poss Enterococcus sp Radiology Impression Knee X-Ray 12/29/22 16:35 IMPRESSION: The femoral component of a total knee prosthesis in good position. Electronically Signed: Chris Collier MD at 17:47 EDT ,
[2022-12-30 13:36] LABS: AST(SGOT) 13 U/L (15-37); Alanine Aminotransfer ALT/SGPT 17 U/L (13-56); Albumin, Serum 2.9 g/dL (3.2-5.0); Alkaline Phosphatase 81 U/L (45-117); Bilirubin, Direct 0.08 mg/dL (0.00-0.30); Globulin 3.2 g/dL (2.2-4.2); Protein, Total 6.1 g/dL (6.4-8.2)
[2022-12-30] MEDS: tiZANidine HCl 2 MG Tablet 4 MG PO (21:14)
[2022-12-31 04:08] VITALS: BP 137/77; PULSE 85; RESP 16; TEMP 36.6; O2SAT 100
[2022-12-31] MEDS: oxyCODONE 5 MG Tablet PO ×2 (04:13→09:35)
[2022-12-31 05:33] LABS: Hematocrit 28.3 % (37-47); Hemoglobin 9.1 g/dL (12.0-15.0); Mean Corp Hgb Conc 32.2 g/dL (32-36); Mean Corpuscular Hgb 29.5 pg (27.0-32.0); Mean Corpuscular Volume 91.9 fL (81-99); Mean Platelet Vol. 9.6 fl (6.2-12.0); Platelet Count 258 K/mm3 (150-450); RBC Distribution Width CV 13.9 % (11.6-14.6); RBC Distribution Width SD 46.5 fl (35.1-43.9); Red Blood Count 3.08 M/mm3 (4.2-5.4); White Blood Count 6.1 K/mm3 (4.4-11.0)
[2022-12-31 06:06] LABS: AST(SGOT) 11 U/L (15-37); Alanine Aminotransfer ALT/SGPT 15 U/L (13-56); Albumin, Serum 2.8 g/dL (3.2-5.0); Alkaline Phosphatase 83 U/L (45-117); Anion Gap 1 (5-15); BUN 10 mg/dL (7-18); Bilirubin, Direct 0.14 mg/dL (0.00-0.30); Calcium,Total 8.4 mg/dL (8.5-10.1); Chloride 107 mmol/L (98-107); Creatinine, Serum 0.62 mg/dL (0.55-1.02); EST Glomerular Filtration Rate 102 mL/min (>60); Est Glom Filt Rate - Afr Amer 124 mL/min (>60); Estimated Creatinine Clearance 73.46 ml/min; Globulin 3.4 g/dL (2.2-4.2); Glucose 113 mg/dL (74-106); Protein, Total 6.2 g/dL (6.4-8.2); Sodium Level 138 mmol/L (136-145)
[2022-12-31] MEDS: Acetaminophen 500 MG Tablet 1000 MG PO ×2 (06:08→13:46)
--- NOTE | 2022-12-31 06:20 | PCM.PN.HOSP ---
Reason for Visit Reason for Visit: Diagnoses Infection and inflammatory reaction due to other internal joint prosthesis, initial encounter (12/29/22) Encounter for other preprocedural examination (12/29/22) Presence of unspecified artificial knee joint (12/29/22) Subjective Subjective Less nausea today after starting PPI, continue current management. Hasn't had BM but passing gas. No CP or SOB Objective Data Objective Data Vital Signs: Vital Signs Temp Pulse Resp BP Pulse Ox O2 Del Method O2 Flow Rate 98 F 85 16 137/77 H 100 Nasal Cannula 2 12/31/22 04:08 12/31/22 04:08 12/31/22 04:08 12/31/22 04:08 12/31/22 04:08 12/31/22 04:08 12/31/22 04:08 Oxygen Flow Rate (L/min) 2 Oxygen Delivery Method Nasal Cannula Weight: 89.358 kg Body Mass Index (BMI) 36.0 Intake & Output: Intake and Output for Last 24 Hours 12/29/22 12/30/22 12/31/22 23:59 23:59 23:59 Intake Total 2292.33 / 2692.33 1410 / 1710 700 / 700 Output Total 225 / 225 Balance 2292.33 / 2517.33 1185 / 1485 700 / 700 Lab / Micro Data Result Diagrams: 12/31/22 05:10 12/31/22 05:10 Labs: Laboratory Results - last 24 hr 12/30/22 06:15: WBC 9.8, RBC 3.28 L, Hgb 9.5 L, Hct 30.5 L, MCV 93.0, MCH 29.0, MCHC 31.1 L, RDW Std Deviation 46.6 H, RDW Coeff of Daphne 13.9, Plt Count 281, MPV 9.7 12/30/22 06:15: Sodium 135 L, Potassium 3.9, Chloride 104, Carbon Dioxide 28.0, Anion Gap 3 L, BUN 15, Creatinine 0.68, Estim Creat Clear Calc 66.97, Est GFR (MDRD) Af Amer 111, Est GFR (MDRD) Non-Af 92, BUN/Creatinine Ratio 21.9 H, Glucose 131 H, Calcium 8.4 L 12/30/22 06:15: Total Bilirubin 0.30, Direct Bilirubin 0.08, AST 13 L, ALT 17, Alkaline Phosphatase 81, Total Protein 6.1 L, Albumin 2.9 L, Globulin 3.2 12/31/22 05:10: WBC 6.1, RBC 3.08 L, Hgb 9.1 L, Hct 28.3 L, MCV 91.9, MCH 29.5, MCHC 32.2, RDW Std Deviation 46.5 H, RDW Coeff of Daphne 13.9, Plt Count 258, MPV 9.6 12/31/22 05:10: Sodium 138, Potassium 4.0, Chloride 107, Carbon Dioxide 30.0, Anion Gap 1 L, BUN 10, Creatinine 0.62, Estim Creat Clear Calc 73.46, Est GFR (MDRD) Af Amer 124, Est GFR (MDRD) Non-Af 102, BUN/Creatinine Ratio 16.0, Glucose 113 H, Calcium 8.4 L, Total Bilirubin 0.30, Direct Bilirubin 0.14, AST 11 L, ALT 15, Alkaline Phosphatase 83, Total Protein 6.2 L, Albumin 2.8 L, Globulin 3.4 Micro: Microbiology 12/29/22 15:48 Incision/Surgical Site Gram Stain - Final 12/29/22 15:48 Incision/Surgical Site Wound Culture - Preliminary No growth-Final to follow 12/29/22 15:38 Incision/Surgical Site Gram Stain - Final 12/29/22 15:38 Incision/Surgical Site Wound Culture - Preliminary No growth-Final to follow 12/29/22 15:37 Incision/Surgical Site Gram Stain - Final 12/29/22 15:37 Incision/Surgical Site Wound Culture - Preliminary GPC Poss Enterococcus sp 12/24/22 13:48 Nasal Secretion Nasal Screen MRSA/MSSA - Final Physical Exam Narrative General: Alert, oriented HEENT: Atraumatic, normocephalic Eyes: Anicteric, normal conjunctiva, extraocular movements grossly intact Neck: Supple Respiratory: Clear to auscultation bilaterally, normal respiratory effort Cardiovascular: Regular rate and rhythm GI: Soft, nontender, nondistended Extremities: Status post left knee explant Musculoskeletal: Moving extremities in bed Neuro: No overt focal neurological deficits Skin: No rashes appreciated Psych: Cooperative Assessment & Plan Assessment/Plan (1) Infected prosthetic knee joint: PLAN: Plan Left knee periprosthetic joint infection -Postop day 0 from left knee explant of total knee replacement with placement of an articulating antibiotic spacer -Pain management per primary -Toe-touch weightbearing x2 weeks followed by partial weightbearing -Range of motion exercises to start at 2 weeks -Continue knee immobilizer with no flexion -ID has been consulted for antibiotic management -Initial cultures show Enterococcus faecalis -PT/OT consultation for gait training -Case management/social work for discharge planning to skilled facility--> patient would like to transition to TCU once medically stable -Will need pre-CERT as patient has a commercial Medicare product -12/30: ID evaluated. PICC line placed and 6 weeks of IV ampicillin ordered -12/31: On ampicillin. Growing Enterococcus faecalis. One cx with rare CNR non fermenters, ID following, final speciation pending. Nausea -Endorses feeling nauseous in the mornings but slightly worse this a.m. -Has Zofran as needed -Has reflux and does seem to be contributory, given her difficulty to tolerate p.o. due to the nausea will give IV Protonix -12/31: Improving. Change PPI to oral. Anemia - 9.1 on 12/31. Was 12/8 on 12/27 however baseline variable and often seems between 9-11. Is post op, no present active blood loss noted. May need outpt w/u CAD/HPL/HTN -SHILPI-LAD w/? 2.75 x 16 mm Promus Premier 04/26/2016 -Continue aspirin--> will be on 81 mg twice daily for DVT prophylaxis per orthopedic surgery recommendation -Continue lisinopril -Patient is not on statin due to intolerance -Clinically stable at this time Vitamin D deficiency -Continue ergocalciferol every Tuesday Seasonal allergies -Continue fexofenadine Rheumatoid arthritis -Patient has been on Biologics and methotrexate previously -Does not currently appear to be on anything -Pain medication per primary service GERD -Patient does not on any med occasion at this time Obesity -BMI 36 -Recommend weight loss -Complicates treatment, prognosis, outcomes DVT prophylaxis -81 mg aspirin p.o. twice daily per orthopedic surgery recommendations Charges/Coding Visit Charges Inpatient E&M: 49285 Subs Hosp L2
[2022-12-31] MEDS: Aspirin 81 MG TAB.CHEW PO (07:43)
[2022-12-31] MEDS: Folic Acid 1 MG Tablet PO (07:43)
[2022-12-31] MEDS: Lisinopril 10 MG Tablet 20 MG PO (07:43)
[2022-12-31] MEDS: Famotidine 20 MG Tablet PO (07:43)
[2022-12-31] MEDS: Ensure Surgery 237 ML LIQUID PO ×2 (07:45→11:24)
[2022-12-31 09:07] VITALS: BP 134/68; PULSE 88; RESP 16; TEMP 36.9; O2SAT 97
--- NOTE | 2022-12-31 09:27 | CASEMGMT ---
Addendum entered by Grisel Mayberry 12/31/22 14:09: Social Work Per PA, Pt ready for discharge today. Orders faxed to TCU and Karly in TCU updated of d/c today. Disposition: TCU, skilled level of care FLOR[facility] Paul Original Note: Social Work Per Karly in TCU precert has been obtained. PA updated. SW met with pt and notified that preauth has been obtained. Plan: TCU, when medically ready FLOR[facility] Paul
[2022-12-31] MEDS: Pantoprazole Sodium 40 MG Tablet PO (09:32)
[2022-12-31] MEDS: Senna/Docusate Sodium 1 Tablet 2 TABLET PO (09:35)
[2022-12-31 10:05] VITALS: O2SAT 95
--- NOTE | 2022-12-31 13:41 | PCM.PN.ORT ---
Subjective Subjective The patient was sitting in bed upon examination. Patient denies any chest pain, shortness of breath, dizziness, lightheadedness, nausea or vomiting, or calf pain. Pain is controlled on medications. No adverse overnight events. Patient overall looks much better today upon examination. Nausea has improved in which medicine has adjusted medications. Patient has also been seen by infectious disease in which PICC line has been established and she is currently on ampicillin. She has had approval and pre-CERT to go to the transitional care unit today. Infectious disease will monitor the patient while in the transitional care unit. Patient does have underlying sleep apnea and she has been utilizing 2 L of O2 while sleeping. Nursing states she does drop to 84% - 86% when sleeping. Patient has not had any sleep studies outpatient but she states it has been discussed with her primary care physician. While awake patient's O2 saturation is greater than 95% on room air. She denies any chest pain or shortness of breath. Objective Data Objective Data Vital signs stable and afebrile. Knee immobilizer in place. This was opened up and dressing is clean dry and intact Patient is able to plantarflex and dorsiflex actively. Sensation is intact to light touch to saphenous, sural, superficial and deep peroneal, and tibial distribution. Dressing is clean dry and intact. Negative Homans bilaterally, negative signs and symptoms of DVT. Vital Signs: Vital Signs Temp Pulse Resp BP Pulse Ox O2 Del Method O2 Flow Rate 98.5 F 88 16 134/68 H 95 Nasal Cannula 2 12/31/22 09:07 12/31/22 09:07 12/31/22 09:07 12/31/22 09:07 12/31/22 10:05 12/31/22 10:05 12/31/22 10:05 Oxygen Flow Rate (L/min) 2 Oxygen Delivery Method Nasal Cannula Weight: 89.358 kg Body Mass Index (BMI) 36.0 Intake & Output: Intake and Output for Last 24 Hours 12/29/22 12/30/22 12/31/22 23:59 23:59 23:59 Intake Total 2292.33 / 2692.33 1410 / 1710 1643.5 / 1643.5 Output Total 225 / 225 Balance 2292.33 / 2517.33 1185 / 1485 1643.5 / 1643.5 Lab / Micro Data Result Diagrams: 12/31/22 05:10 12/31/22 05:10 Labs: Laboratory Results - last 24 hr 12/31/22 05:10: WBC 6.1, RBC 3.08 L, Hgb 9.1 L, Hct 28.3 L, MCV 91.9, MCH 29.5, MCHC 32.2, RDW Std Deviation 46.5 H, RDW Coeff of Daphne 13.9, Plt Count 258, MPV 9.6 12/31/22 05:10: Sodium 138, Potassium 4.0, Chloride 107, Carbon Dioxide 30.0, Anion Gap 1 L, BUN 10, Creatinine 0.62, Estim Creat Clear Calc 73.46, Est GFR (MDRD) Af Amer 124, Est GFR (MDRD) Non-Af 102, BUN/Creatinine Ratio 16.0, Glucose 113 H, Calcium 8.4 L, Total Bilirubin 0.30, Direct Bilirubin 0.14, AST 11 L, ALT 15, Alkaline Phosphatase 83, Total Protein 6.2 L, Albumin 2.8 L, Globulin 3.4 Micro: Microbiology 12/31/22 09:30 Nasal Secretion SARS-CoV-2 Antigen (Rapid) - Final 12/29/22 15:48 Incision/Surgical Site Gram Stain - Final 12/29/22 15:48 Incision/Surgical Site Wound Culture - Preliminary GNR non leather cutter 12/29/22 15:37 Incision/Surgical Site Gram Stain - Final 12/29/22 15:37 Incision/Surgical Site Wound Culture - Final Enterococcus faecalis 12/29/22 15:38 Incision/Surgical Site Gram Stain - Final 12/29/22 15:38 Incision/Surgical Site Wound Culture - Preliminary No growth-Final to follow 12/24/22 13:48 Nasal Secretion Nasal Screen MRSA/MSSA - Final Physical Exam Narrative Vital signs stable and afebrile. Patient is still currently on 2 L. Discussed with nursing and she does drop to the mid 80s when sleeping. Patient does have underlying sleep apnea Knee immobilizer is in place for left lower extremity. Patient is able to plantarflex and dorsiflex actively. Sensation is intact to light touch to saphenous, sural, superficial and deep peroneal, and tibial distribution. Dressing is clean dry and intact. Negative Homans bilaterally, negative signs and symptoms of DVT. Const alert and oriented x3 Assessment & Plan Assessment/Plan (1) Infected prosthetic knee joint: PLAN: 1. S/P left knee explant total knee replacement with placement of articulating antibiotic spacer with nonbiodegradable antibiotic delivery system POD #2 2. Continue Pain Medications: Tylenol, oxycodone 3. DVT Prophylaxis: Take 81 mg aspirin twice daily for 4 weeks postoperatively for DVT prophylaxis. Patient denies past history of DVT or pulmonary embolism 4. PT/OT: Patient will continue with physical therapy postoperatively with restrictions: Currently toe-touch weightbearing for 2 weeks with no range of motion of the left knee. Continue with the knee immobilizer. 5. H & H: 9.28.3, asymptomatic. Postoperative anemia secondary to acute blood loss from surgery without any intra operative complications. Patient currently takes folic acid. We will add in ferrous sulfate. 6. Infectious disease: Consult has been placed for management of antibiotics. Patient will require 6 weeks IV antibiotics and PICC line. Appreciate input with appropriate antibiotic coverage. Patient did have wound culture with Enterococcus species. Preoperatively patient had aspiration for Enterococcus faecalis. Prescription for ampicillin is on chart and patient will follow lab work per infectious disease 7. Continue postoperative medical management per medicine: Case was discussed reviewed with medicine. Patient's nausea has improved and she will continue on oral Protonix. I did discuss with her following up with her primary care physician once she has been discharged from the hospital with regards to her nausea. We also discussed her sleep apnea in great detail. I recommend outpatient follow-up with primary care physician for sleep study. She states this was discussed before but due to COVID patient never went through with any further referral. 8. Encouraged Incentive Spirometry 9. Disposition: Patient overall is orthopedically stable. She will continue with postoperative restrictions as listed above. She has 2-week postoperative follow-up already scheduled with our office for x-rays, wound check, staple removal and overall assessment. She has had pre-CERT obtained and has been okayed to be discharged to the transitional care unit. Case was discussed with medicine and they were also okay for discharge today as long as she is going to follow-up with PCP on outpatient basis for her nausea and sleep apnea. Prescriptions will be attached to chart. She will contact her office with any concerns or questions once discharge from [facility]. Case was also discussed with case management. I have reviewed the [place] Automated Rx Reporting System (OARRS) report for this patient for refill pattern and other prescriber involvement as part of the appropriate surveillance for the provision of acute and chronic controlled medications. The report was requested and reviewed on the date of this entry and was considered in the prescribing process. This dictation was created using voice recognition software. Phonetic and/or grammatical errors may exist.
--- NOTE | 2022-12-31 13:47 | TREXTCAR_ITS ---
Diet Diet Order/Speech Therapy: 12/29/22 23:54 Diet: Regular - General Is pt able to select menu?: Yes Routine Orders/Code Status O2 Liters per Minute: 2 L at nighttime due to sleep apnea and drop in O2 saturation O2 Frequency: PRN Routine Lab Work: CBC (January 02, 2023) Code Status: Full Code Wound(s) LEFT KNEE: Wound Type: Surgical Incision (Currently with Mepilex dressing. Okay to remove Mepilex dressing on January 04, 2023. She can shower and get this dressing wet. Once dressing has been removed only gentle soap and water over the incision. No flexion of the knee.) Therapies Weight Bearing: Toe-touch weight bearing (Toe-touch weightbearing with walker. Knee immobilizer must be in place at all times and no flexion of the knee.) Extremity Affected:: Left Lower Physical Therapy: Eval and Treat (Toe-touch weightbearing with walker. Knee immobilizer at all times and no flexion of the left knee.) Problem/Diagnosis (1) Infected prosthetic knee joint: Status: Acute Code(s): T84.59XA - Infection and inflammatory reaction due to other internal joint prosthesis, initial encounter; Z96.659 - Presence of unspecified artificial knee joint Plan: 1. S/P left knee explant total knee replacement with placement of articulating antibiotic spacer with nonbiodegradable antibiotic delivery system POD #2 2. Continue Pain Medications: Tylenol, oxycodone 3. DVT Prophylaxis: Take 81 mg aspirin twice daily for 4 weeks postoperatively for DVT prophylaxis. Patient denies past history of DVT or pulmonary embolism 4. PT/OT: Patient will continue with physical therapy postoperatively with restrictions: Currently toe-touch weightbearing for 2 weeks with no range of motion of the left knee. Continue with the knee immobilizer. 5. H & H: 9.1/28.3, asymptomatic. Postoperative anemia secondary to acute blood loss from surgery without any intra operative complications. Patient currently takes folic acid. We will add in ferrous sulfate. 6. Infectious disease: Consult has been placed for management of antibiotics. Patient will require 6 weeks IV antibiotics and PICC line. Appreciate input with appropriate antibiotic coverage. Patient did have wound culture with Enterococcus species. Preoperatively patient had aspiration for Enterococcus faecalis. Prescription for ampicillin is on chart and patient will follow lab work per infectious disease 7. Continue postoperative medical management per medicine: Case was discussed reviewed with medicine. Patient's nausea has improved and she will continue on oral Protonix. I did discuss with her following up with her primary care physician once she has been discharged from the hospital with regards to her nausea. We also discussed her sleep apnea in great detail. I recommend outpatient follow-up with primary care physician for sleep study. She states this was discussed before but due to COVID patient never went through with any further referral. 8. Encouraged Incentive Spirometry 9. Disposition: Patient overall is orthopedically stable. She will continue with postoperative restrictions as listed above. She has 2-week postoperative follow-up already scheduled with our office for x-rays, wound check, staple removal and overall assessment. She has had pre-CERT obtained and has been okayed to be discharged to the transitional care unit. Case was discussed with medicine and they were also okay for discharge today as long as she is going to follow-up with PCP on outpatient basis for her nausea and sleep apnea. Prescriptions will be attached to chart. She will contact her office with any concerns or questions once discharge from [facility]. Case was also discuss ed with case management. I have reviewed the [place] Automated Rx Reporting System (OARRS) report for this patient for refill pattern and other prescriber involvement as part of the appropriate surveillance for the provision of acute and chronic controlled medications. The report was requested and reviewed on the date of this entry and was considered in the prescribing process. This dictation was created using voice recognition software. Phonetic and/or grammatical errors may exist. Allergies/Procedures Done in Hospital Allergies No Known Allergies Allergy (Verified 12/29/22 10:36) Procedures: - (Left knee explant total knee replacement with placement of articulating antibiotic spacer with nonbiodegradable antibiotic delivery system: December 29, 2022) Type of Care/Length of Stay Estimated LOS: More Than 30 Days Type of Care Needed: Skilled Rehab Potential: Good Prognosis: Good Additional Orders/Day of Discharge Day of Discharge: 12/31/22 Discharge Plan Admission Admit Date/Time: 12/29/22 08:58 Attending Provider: Otf Bethea Primary Care Provider: Duane Odom Consulting Providers: Gerald Balbuena ; Ct Claire Discharge Orders/Prescriptions Prescriptions: New ampicillin sodium 2 gram Recon Soln 2 g IV Q6 41 Days Qty: 164 0RF Rx Instructions: stop date 02/09/23 dx: prosthetic joint infection weekly bmp, cbc, and esr. Fax to [phone] ferrous sulfate [FeroSul] 325 mg (65 mg iron) Tablet 325 mg PO 1200,1700 14 Days Qty: 0 0RF aspirin 81 mg Tablet,Chewable 81 mg PO BIDCM 30 Days Qty: 0 0RF Rx Instructions: Take 81 mg aspirin twice daily for 4 weeks postoperatively for DVT prophylaxis. oxycodone 5 mg Tablet 5 - 10 mg PO Q4H PRN PRN (Reason: Pain Score 4-10) 7 Days Qty: 30 0RF sennosides-docusate sodium [Stool Softener-Stimulant Laxat] 8.6-50 mg Tablet 2 tab PO BID Qty: 0 0RF Rx Instructions: Take until first bowel movement, then as needed pantoprazole 40 mg Tablet,Delayed Release (Dr/Ec) 40 mg PO DAILY Qty: 0 0RF Continued tizanidine 4 mg tablet 4 mg PO QHS Label Comments: TAKE 1 TABLET BY MOUTH AT BEDTIME NEEDED fexofenadine 60 MG tablet 60 mg PO DAILY PRN (Reason: Allergies) acetaminophen 500 mg Tablet 1,000 mg PO Q8 PRN (Reason: Pain) Qty: 90 0RF ergocalciferol (vitamin D2) 50,000 UNIT capsule 50,000 unit PO Mejia@1000 folic acid 1 mg Tablet 1 mg PO DAILY lisinopril 10 mg tablet 20 mg PO DAILY Discontinued aspirin [Adult Low Dose Aspirin] 81 mg tablet,delayed release (DR/EC) 81 mg PO DAILY cefadroxil 500 mg Capsule 500 mg PO TID Referrals / Follow Up: Duane Odom MD [Primary Care Provider] - Ciera Goddard PA [Med Staff - [facility]] - 01/12/23 1:15 pm Disposition Disposition (needs filled in before D/C Order can be placed): [facility]
--- NOTE | 2022-12-31 14:25 | PHA.DC.MR ---
Pharmacy Service has performed discharge medication reconciliation for this patient. The patient's discharge medication list was reviewed for discrepancies and discrepancies were resolved. Home Medications fexofenadine 60 mg tablet 60 mg PO DAILY PRN Allergies 06/11/20 tizanidine 4 mg tablet 4 mg PO QHS muscle relaxer 07/07/20 acetaminophen 500 mg tablet 1,000 mg PO Q8 PRN Pain #90 tabs 05/27/21 ergocalciferol (vitamin D2) 1,250 mcg (50,000 unit) capsule 50,000 unit PO Mejia@1000 supplement 06/29/21 folic acid 1 mg tablet 1 mg PO DAILY Check with primary doctor 12/22/22 lisinopril 10 mg tablet 20 mg PO DAILY Check with primary doctor 12/22/22 ampicillin sodium 2 gram solution for injection 2 g IV Q6 41 days #164 ea 12/30/22 aspirin 81 mg chewable tablet 81 mg PO BIDCM 30 days #0 tabs 12/31/22 ferrous sulfate 325 mg (65 mg iron) tablet (FeroSul) 325 mg PO 1200,1700 14 days #0 tabs 12/31/22 oxycodone 5 mg tablet 5 - 10 mg PO Q4H PRN PRN Pain Score 4-10 7 days #30 tabs 12/31/22 pantoprazole 40 mg tablet,delayed release 40 mg PO DAILY #0 tabs 12/31/22 sennosides 8.6 mg-docusate sodium 50 mg tablet (Stool Softener-Stimulant Laxative) 2 tab PO BID #0 tabs 12/31/22
[2022-12-31 14:35] VITALS: BP 131/66; PULSE 90; RESP 16; TEMP 36.8; O2SAT 93
== END 2022-12-31 14:25 | disposition skilled nursing facility (03) | DRG 468 ==
LOC: ACINP 09:41 → MS3 16:34
PROVIDERS: Anesthesiology; Internal Medicine; Nurse Practitioner Family; Admitting Provider Specialist; PCP Family Medicine; Referring Provider Specialist; Visit Provider Specialist
PROC: 0SRD0EZ Replacement of Left Knee Joint with Articulating Spacer, Open Approach (ICD-10-PCS; CPT 27488; principal; 2022-12-29 11:20)
DX: T84.54XA Infection and inflammatory reaction due to internal left knee prosthesis, initial encounter (principal); T84.033A Mechanical loosening of internal left knee prosthetic joint, initial encounter; M06.9 Rheumatoid arthritis, unspecified; E55.9 Vitamin D deficiency, unspecified; I25.10 Atherosclerotic heart disease of native coronary artery without angina pectoris; I10 Essential (primary) hypertension; K21.9 Gastro-esophageal reflux disease without esophagitis; M79.7 Fibromyalgia; E78.00 Pure hypercholesterolemia, unspecified; G47.33 Obstructive sleep apnea (adult) (pediatric); J30.2 Other seasonal allergic rhinitis; I25.2 Old myocardial infarction; B95.2 Enterococcus as the cause of diseases classified elsewhere; Y83.1 Surgical operation with implant of artificial internal device as the cause of abnormal reaction of the patient, or of later complication, without mention of misadventure at the time of the procedure; M81.0 Age-related osteoporosis without current pathological fracture; E66.9 Obesity, unspecified; Z95.5 Presence of coronary angioplasty implant and graft; Z68.36 Body mass index [BMI] 36.0-36.9, adult; Z79.82 Long term (current) use of aspirin; Z79.899 Other long term (current) drug therapy; Z87.891 Personal history of nicotine dependence
CPT/HCPCS: 36415; 36569; 73560; 80048; 80076; 82040; 82962; 83735; 85027; 85610; 85730; 87015; 87070; 87075; 87077; 87081; 87102; 87116; 87176; 87186; 87205; 87206; 87426; 94668; 97162; 97166; 97530; 97535; 99252; C1776; J7120; A4216; G0463; J2405; J3260

== ENCOUNTER 2022-12-31 14:34 | Inpatient (IN) | payer MEDICARE, MEDICAID, SELFPAY ==
[2022-12-31 14:50] VITALS: BP 127/56; PULSE 95; RESP 19; TEMP 36; O2SAT 93; BMI 36.8
[2022-12-31 15:19] VITALS: BP 127/56; PULSE 95; RESP 19; TEMP 36; O2SAT 93
--- NOTE | 2022-12-31 15:29 | HP.PCM_ITS ---
[facility] - General General Date of Admission: 12/31/22 Date of Service: 12/31/22 Chief Complaint: Here for rehabilitation, intravenous antibiotics, prior to discharge home. [facility] Narrative FRANCIE MORENO, is a 62 Female who presents with followin06/26/2021 Dr. Charles performed left TKA. Worsening pain for 6 months. Imaging shows loosening of left TKA. Using cane to walk. Intra-articular culture growing Enterococcus Faecalis. 12/29/2022 Admit to [facility]. 12/29/2022 Dr. Bethea performed left knee explant of total knee arthroplasty with placement of articulating antibiotic spacer. 12/29/2022 Left knee immobilizer. PT/OT for TCU. Aspirin 81mg twice daily for DVT prophylaxis. 12/30/2022 Nausea, taken off omeprazole for GERD. Taking many Rolaids recently. Dr. Balbuena recommended 6 weeks of IV Ampicillin via PICC for Enterococcus Faecalis left prosthetic knee joint infection. Protonix IV for GERD. 12/31/2022 Less nausea on IV PPI, passing gas, no bowel movement. 1 culture growing rare GNR non-drugless physician. 12/31/2022 Admit to TCU with debility, here for rehabilitation, strengthening, intravenous antibiotics prior to discharge home. [facility] Medical History Allergic rhinitis Allergic rhinitis Ambulates with cane Anemia Anxiety Arthritis Atherosclerosis of coronary artery of [place] heart without angina pectoris Back pain Cardiology follow-up encounter Chronic headaches Coronary artery disease Debility Depression Essential hypertension Fibromyalgia Former smoker Gastric reflux Gastroesophageal reflux disease High cholesterol History of echocardiogram History of heart attack History of non-ST elevation myocardial infarction (NSTEMI) (04/26/16) History of pain when walking History of stress test Hypertension Marijuana use Obesity ANN (obstructive sleep apnea) Osteoarthritis of both knees Rheumatoid arthritis Rheumatoid arthritis Septic arthritis Shortness of breath on exertion Sleep apnea Syncope Uses wheelchair Vitamin D deficiency Vitamin D deficiency Walker as ambulation aid Wears glasses Home Medications fexofenadine 60 mg tablet 60 mg PO DAILY PRN Allergies 06/11/20 [History Last Taken 06/25/21 08:00] tizanidine 4 mg tablet 4 mg PO QHS muscle relaxer 07/07/20 [History Last Taken 06/25/21 08:00] acetaminophen 500 mg tablet 1,000 mg PO Q8 PRN Pain #90 tabs 05/27/21 [Rx Last Taken 06/25/21 15:00] ergocalciferol (vitamin D2) 1,250 mcg (50,000 unit) capsule 50,000 unit PO Mejia@1000 supplement 06/29/21 [History Last Taken Unknown] folic acid 1 mg tablet 1 mg PO DAILY supplement 12/22/22 [History Last Taken Unknown] lisinopril 10 mg tablet 20 mg PO DAILY blood pressure 12/22/22 [History Last Taken 12/29/22] ampicillin sodium 2 gram solution for injection 2 g IV Q6 infection 12/31/22 [History Last Taken Unknown] aspirin 81 mg chewable tablet 81 mg PO BIDCM blood thinner 12/31/22 [History Last Taken Unknown] ferrous sulfate 325 mg (65 mg iron) tablet (FeroSul) 325 mg PO 1200,1700 supplement 12/31/22 [History Last Taken Unknown] oxycodone 5 mg tablet 5 - 10 mg PO Q4H PRN PRN Pain Score 4-10 7 days #30 tabs 12/31/22 [Rx Last Taken Unknown] pantoprazole 40 mg tablet,delayed release 40 mg PO DAILY stomach 12/31/22 [History Last Taken Unknown] sennosides 8.6 mg-docusate sodium 50 mg tablet (Stool Softener-Stimulant Laxative) 2 tab PO BID constipation 12/31/22 [History Last Taken Unknown] Allergy/AdvReac Type Severity Reaction Status Date / Time No Known Allergies Allergy Verified 12/29/22 10:36 Family History Mother Hypertension CVA (cerebral vascular accident) Sister Cancer Father Heart disease Surgical History History of cardiac catheterization History of coronary artery stent placement (04/26/16) History of total left knee replacement (2020) History of total right knee replacement Hx of colonoscopy Status post incision and drainage Social History household members: children Smoking Status: Former smoker how long ago did patient quit smokin years ago alcohol intake: current alcohol intake frequency: holidays/special occasions only substance use type: does not use caffeine: Yes Type: carbonated beverages and coffee ROS Constitutional Constitutional: Denies chills, fever(s) or weight gain ENT HEENT: Denies headache(s), nasal congestion or nasal discharge Cardiovascular Cardiovascular: Denies chest pain or palpitations Respiratory/Chest Respiratory/Chest: Denies cough, excessive phlegm production or shortness of breath with exertion Gastrointestinal Gastrointestinal: Denies abdominal pain, nausea or vomiting Genitourinary Genitourinary: Denies dysuria Musculoskeletal Musculoskeletal: Denies joint pain or joint swelling Integumentary Integumentary: Denies rash or wounds Neurologic Neurologic: Denies focal weakness, numbness or tingling Psychiatric Psychiatric: Denies anxiety, auditory hallucinations, depression, homicidal ideation or suicidal ideation Vital Signs Vital Signs Vital Signs: 12/31/22 15:19 Temperature 96.8 F L Temperature Source Temporal Pulse Rate 95 Respiratory Rate 19 H Blood Pressure 127/56 H Blood Pressure Mean 79 Blood Pressure Source Monitor Blood Pressure Position Sitting Blood Pressure Location Left Arm Pulse Ox 93 Oxygen Delivery Method Room Air Physical Exam Const alert General Appearance: cooperative HEENT normocephalic Eyes PERRL and EOMs intact bilaterally Neck supple, no JVD and no carotid bruits Resp normal respiratory effort, normal air movement and clear to auscultation bilaterally Cardio regular rate and regular rhythm GI normal to inspection, nondistended, normoactive bowel sounds, non-tender and non-distended Extremity normal capillary refill Extremity Narrative: Right upper extremity PICC line, left knee immobilizer. 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 Bethea, admitted to TCU with debility, here for rehabilitation, strengthening, intravenous antibiotics, prior to discharge home with daughter. * Debility - PT/OT. * Pain - Tylenol 1000mg q6h prn pain (1-3), Oxycodone 5-10mg q4h prn pain (4- 10). * Bowel - senna/colace 2 tablets bid, MOM 30ml po x 1 prn. * Adult immunization - Administer pneumonia vaccine, covid19 vaccine, flu vaccine as appropriate. * DVT prophylaxis - Aspirin 81mg bid. * Left prosthetic knee joint infection s/p explant/antibiotic spacer - Ampicillin 2gm iv q6h thru 02/09/2023, consult Dr. Balbuena to follow. * Vitamin D deficiency - D 1.25mg per week. * Iron deficiency anemia - Ferrous sulfate 325mg bid. * Folate deficiency - Folic acid 1mg daily. * Coronary artery disease - Lisinopril 20mg daily * Allergic rhinitis - Loratadine 10mg daily prn * GERD - Pantoprazole 40mg daily. * Muscle spasm - Tizanidine 4mg qhs.
[2022-12-31 15:34] VITALS: PULSE 95; RESP 19; O2SAT 93
[2022-12-31] MEDS: oxyCODONE 5 MG Tablet PO ×2 (15:51→20:16)
[2022-12-31] MEDS: Senna/Docusate Sodium 1 Tablet 2 TABLET PO (18:21)
[2022-12-31] MEDS: Aspirin 81 MG TAB.CHEW PO (18:21)
[2022-12-31] MEDS: Ferrous Sulfate 325 MG Tablet PO (18:21)
[2022-12-31] MEDS: 0.9% Saline Lock 10 ML Syringe IV ×3 (18:22→22:11)
[2022-12-31] MEDS: Ensure Plus High Protein 120 ML LIQUID PO (18:26)
[2022-12-31] MEDS: tiZANidine HCl 2 MG Tablet 4 MG PO (22:11)
[2023-01-01] MEDS: 0.9% Saline Lock 10 ML Syringe IV ×2 (00:17→18:04)
[2023-01-01] MEDS: Acetaminophen 500 MG Tablet 1000 MG PO ×3 (00:22→20:57)
[2023-01-01] MEDS: oxyCODONE 5 MG Tablet PO ×4 (04:26→18:02)
[2023-01-01] MEDS: Senna/Docusate Sodium 1 Tablet 2 TABLET PO ×2 (05:47→18:03)
[2023-01-01] MEDS: Lisinopril 20 MG Tablet PO (05:47)
[2023-01-01] MEDS: Pantoprazole Sodium 40 MG Tablet PO (05:47)
[2023-01-01 07:18] LABS: Absolute Lymphocyte Count 1.31 X10^3/uL (0.83-4.51); Absolute Neutrophil Count 4.9 X10^3/uL (2.0-7.7); Basophil# 0.04 X10^3/uL; Basophil% 0.5 % (0-1); Eosinophil# 0.35 X10^3/uL; Eosinophils% 4.8 % (0-5); Hematocrit 27.5 % (37-47); Hemoglobin 8.5 g/dL (12.0-15.0); Lymphocyte # 1.31 X10^3/ul (0.83-4.51); Mean Corp Hgb Conc 30.9 g/dL (32-36); Mean Corpuscular Hgb 28.9 pg (27.0-32.0); Mean Corpuscular Volume 93.5 fL (81-99); Mean Platelet Vol. 9.7 fl (6.2-12.0); Monocyte# 0.64 X10^3/uL; Monocyte% 8.8 % (0-10); NRBC Flagged by Analyzer 0 % (0-5); Neutrophil % 67.2 % (47-70); Platelet Count 268 K/mm3 (150-450); RBC Distribution Width SD 47.8 fl (35.1-43.9); Red Blood Count 2.94 M/mm3 (4.2-5.4); White Blood Count 7.3 K/mm3 (4.4-11.0)
[2023-01-01 07:49] LABS: Anion Gap 2 (5-15); BUN 11 mg/dL (7-18); BUN/Creat Ratio 16.9 RATIO (10-20); Calcium,Total 8.7 mg/dL (8.5-10.1); Chloride 105 mmol/L (98-107); Creatinine, Serum 0.65 mg/dL (0.55-1.02); EST Glomerular Filtration Rate 97 mL/min (>60); Est Glom Filt Rate - Afr Amer 118 mL/min (>60); Estimated Creatinine Clearance 70.07 ml/min; Glucose 100 mg/dL (74-106); Sodium Level 137 mmol/L (136-145)
[2023-01-01] MEDS: Magnesium Hydroxide 30 ML UDC PO (08:04)
[2023-01-01] MEDS: Ensure Plus High Protein 120 ML LIQUID PO ×2 (08:52→12:37)
[2023-01-01] MEDS: Folic Acid 1 MG Tablet PO (08:52)
[2023-01-01] MEDS: Aspirin 81 MG TAB.CHEW PO ×2 (08:52→18:03)
[2023-01-01] MEDS: Loratadine 10 MG Tablet PO (08:54)
[2023-01-01 09:28] LABS: Erythrocyte Sedimentation Rate 76 mm/hr (0-30)
--- NOTE | 2023-01-01 10:05 | RAD_ITS ---
EXAM: XR ABDOMEN, 1 VIEW CLINICAL INDICATION: Nausea TECHNIQUE: Frontal supine view of the abdomen/pelvis. COMPARISON: No relevant prior studies available. FINDINGS: LOWER THORAX: No acute pathology. GASTROINTESTINAL TRACT: Unremarkable. Non-obstructive. No bowel or stomach distention. ORGANS: Unremarkable as visualized. No organomegaly. No abnormal calcifications. BONES/JOINTS: Degenerative findings in the lumbar spine. SOFT TISSUES: Tubal ligation clips. RAD/Abdomen Single View IMPRESSION: No acute findings. Electronically Signed: Naldo Yoder MD at 16:04 EDT ,
[2023-01-01] MEDS: Tuberculin,Purif.prot.deriv. 50 TU/ML Vial 0.1 ML ID (10:53)
[2023-01-01] MEDS: Ferrous Sulfate 325 MG Tablet PO ×2 (12:33→18:03)
[2023-01-01 15:00] VITALS: O2SAT 93
[2023-01-01 16:00] VITALS: BP 135/76; PULSE 87; RESP 14; TEMP 36; O2SAT 97
[2023-01-01] MEDS: tiZANidine HCl 2 MG Tablet 4 MG PO (20:57)
[2023-01-02] MEDS: 0.9% Saline Lock 10 ML Syringe IV ×4 (00:27→23:52)
[2023-01-02] MEDS: oxyCODONE 5 MG Tablet PO ×4 (01:36→20:01)
[2023-01-02] MEDS: Pantoprazole Sodium 40 MG Tablet PO (05:09)
[2023-01-02] MEDS: Lisinopril 20 MG Tablet PO (05:09)
[2023-01-02] MEDS: Senna/Docusate Sodium 1 Tablet 2 TABLET PO (05:09)
[2023-01-02] MEDS: Acetaminophen 500 MG Tablet 1000 MG PO (05:10)
--- NOTE | 2023-01-02 05:10 | NURSING ---
Pt requesting medication for c/o left knee pain and migraine at 05/15. Laying in bed w/ eyes closed but answers all questions asked. In no acute distress. Medicated w/ Tylenol per NOV.
[2023-01-02 05:32] VITALS: BP 132/67; PULSE 77
[2023-01-02] MEDS: Folic Acid 1 MG Tablet PO (08:30)
[2023-01-02] MEDS: Ensure Plus High Protein 120 ML LIQUID PO ×2 (08:30→12:15)
[2023-01-02] MEDS: Aspirin 81 MG TAB.CHEW PO ×2 (08:30→17:56)
[2023-01-02] MEDS: Loratadine 10 MG Tablet PO (08:48)
[2023-01-02] MEDS: Ergocalciferol 1.25 MG (50, 000 UNIT) Capsule PO (11:14)
[2023-01-02] MEDS: Ferrous Sulfate 325 MG Tablet PO ×2 (11:14→17:56)
[2023-01-02] MEDS: Ondansetron ODT 4 MG Tablet 8 MG PO (14:51)
[2023-01-02 15:33] VITALS: BP 122/69; PULSE 93; RESP 16; O2SAT 96
--- NOTE | 2023-01-02 20:07 | NURSING ---
Offered Tylenol with Oxycodone and pt refuses stating, I think that's what I had last night and it felt like I was having a heart attack. Will continue to monitor.
[2023-01-02] MEDS: tiZANidine HCl 2 MG Tablet 4 MG PO (21:49)
[2023-01-03] MEDS: Ondansetron ODT 4 MG Tablet 8 MG PO ×2 (02:30→20:42)
[2023-01-03] MEDS: oxyCODONE 5 MG Tablet PO ×5 (02:33→20:40)
[2023-01-03 05:42] LABS: Hematocrit 26.1 % (37-47); Hemoglobin 8.1 g/dL (12.0-15.0)
[2023-01-03 06:40] VITALS: BP 150/67; PULSE 88
[2023-01-03] MEDS: 0.9% Saline Lock 10 ML Syringe IV ×3 (06:45→14:14)
[2023-01-03] MEDS: Acetaminophen 500 MG Tablet 1000 MG PO (06:47)
[2023-01-03] MEDS: Lisinopril 20 MG Tablet PO (06:47)
[2023-01-03] MEDS: Pantoprazole Sodium 40 MG Tablet PO (06:47)
[2023-01-03] MEDS: Ensure Plus High Protein 120 ML LIQUID PO ×3 (08:26→17:45)
[2023-01-03] MEDS: Aspirin 81 MG TAB.CHEW PO ×2 (08:27→17:42)
[2023-01-03] MEDS: Folic Acid 1 MG Tablet PO (08:27)
[2023-01-03] MEDS: Loratadine 10 MG Tablet PO (08:29)
[2023-01-03 09:55] VITALS: PULSE 91; RESP 16; O2SAT 96
[2023-01-03] MEDS: Ferrous Sulfate 325 MG Tablet PO ×2 (12:04→17:42)
--- NOTE | 2023-01-03 12:44 | NURSING ---
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 At this time she has stated she prefers to rest in her room however would like visits w/therapy dog. She watches tv, uses her smartphone for games or talking w/family and friends. Staff will continue to visit weekly and offer in and out of room activities and respect her right to say no.
--- NOTE | 2023-01-03 13:08 | CASEMGMT ---
Social Work Met with patient to complete initial assessment. Pt known to this worker from previous admission. Updated changes to assessment.Confirmed no changes to full code, code status or MOLST form. Pt wishes to complete advanced directives. SW to complete with pt prior to DC, as time allows. Verified/updated contacts. Educated to [facility] insurance with [employer] 01/04 and continued stay is not guaranteed with each review. Pt's goal is to return home living with dtr. See SW assessment for further details on home set up and discussion about depression and anxiety. SW to continue to follow. Monique Wilkinson, [employer]
--- NOTE | 2023-01-03 14:12 | PCM.PN.ID ---
Physical Exam Narrative Feeling ok, knee sore, no fever Const alert and no apparent distress General Appearance: cooperative Resp normal air movement and clear to auscultation bilaterally Cardio regular rate and regular rhythm GI soft to palpation, non-tender and non-distended Extremity General Extremity: edema Skin Skin Narrative: knee wrapped ID ID: Route of nutrition/ use of supplements: [] Nutritional Intake: [] IV Site: [] Vance Catheter: [] Assessment & Plan Assessment/Plan (1) Infected prosthetic knee joint: PLAN: enterococcus and pseudomonas L knee PJI - Had aspiration done early December, cx showed enterococcus.? Taken to OR 12/29/[address] Bethea for spacer placement.? Surg cx now with enterococcus and pseudomonas.? Picc in place for 6 weeks iv abx, stop date 02/09/23 with weekly labs.? With new growth of PsA, will change amp to zosyn to cover both organisms. Will follow
--- NOTE | 2023-01-03 14:22 | PHA.CONS_ITS ---
TCU RX Drug Regimen Review Subjective: TCU Admission. 62 YOF 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 Bethea. Admitted to TCU with debility for strengthening and rehabilitation. Objective: Allergies No Known Allergies Allergy (Verified 12/29/22 10:36) Current Medications Generic Name Dose Route Start Last Admin Trade Name Freq PRN Reason Stop Dose Admin Acetaminophen 1,000 mg 12/31/22 15:44 01/03/23 06:47 Acetaminophen 500 Mg Tablet PO 1,000 mg Q6H PRN PRN Administration Pain Score 1-3 Aspirin 81 mg 12/31/22 17:00 01/03/23 08:27 Aspirin 81 Mg Tab.Chew PO 01/26/23 22:00 81 mg BIDCM BILL Administration Ergocalciferol 1.25 mg 01/02/23 10:00 01/02/23 11:14 Ergocalciferol 1.25 Mg (50, 000 Unit) Capsule PO 1.25 mg Mejia@1000 BILL Administration Ferrous Sulfate 325 mg 12/31/22 17:00 01/03/23 12:04 Ferrous Sulfate 325 Mg Tablet PO 325 mg 1200,1700 BILL Administration Folic Acid 1 mg 01/01/23 08:00 01/03/23 08:27 Folic Acid 1 Mg Tablet PO 1 mg BREAKFAST BILL Administration Heparin Sodium (Beef Lung) 50 units 12/31/22 15:39 Heparin Pf Lock 10 Units/Ml 50 Units/5 Ml Syringe IV UD PRN PICC Line Heparin Flush Sodium Chloride 250 mls @ 15 mls/hr 12/31/22 17:53 01/02/23 05:16 IV 15 mls/hr .[id number] PRN Administration Saline Flush Piperacillin Sod/Tazobactam 50 mls @ 12.5 mls/hr 01/03/23 14:00 01/03/23 14:11 Sod 3.375 gm/ Sodium Chloride IV 02/09/23 12:00 12.5 mls/hr Q8 BILL Administration Lisinopril 20 mg 01/01/23 06:00 01/03/23 06:47 Lisinopril 20 Mg Tablet PO 20 mg DAILY BILL Administration Loratadine 10 mg 12/31/22 15:28 01/03/23 08:29 Loratadine 10 Mg Tablet PO 10 mg DAILY PRN PRN Administration Allergies Magnesium Hydroxide 30 ml 12/31/22 15:44 01/01/23 08:04 Magnesium Hydroxide 30 Ml Udc PO 30 ml X1 PRN Administration Constipation Nutritional Formula (Lactose Free) 120 ml 12/31/22 17:45 01/03/23 12:08 Ensure Plus High Protein 120 Ml Liquid PO 120 ml TIDCM BILL Administration Ondansetron HCl 8 mg 01/01/23 10:04 01/03/23 02:30 Ondansetron Odt 4 Mg Tablet PO 8 mg Q8H PRN PRN Administration NAUSEA/VOMITING Oxycodone HCl 5 - 10 mg 12/31/22 14:55 01/03/23 12:08 Oxycodone 5 Mg Tablet PO 10 mg Q4H PRN PRN Administration Pain Score 4-10 Pantoprazole Sodium 40 mg 01/01/23 06:00 01/03/23 06:47 Pantoprazole Sodium 40 Mg Tablet PO 40 mg DAILY BILL Administration Senna/Docusate Sodium 2 tablet 12/31/22 18:00 01/03/23 06:48 Senna/Docusate Sodium 1 Tablet PO Not Given BID BILL Sodium Chloride 10 - 40 ml 12/31/22 15:39 01/03/23 14:14 0.9% Saline Lock 10 Ml Syringe IV 20 ml UD PRN Administration Open End PICC Flush Sodium Chloride 10 - 40 ml 12/31/22 15:39 0.9 % Nacl (Sterile) Posiflush 10 Ml IV UD PRN Port access or dressing change Tizanidine HCl 4 mg 12/31/22 22:00 01/02/23 21:49 Tizanidine Hcl 2 Mg Tablet PO 4 mg QHS BILL Administration Tuberculin PPD 0.1 ml 01/08/23 10:00 Tuberculin,Purif.Prot.Deriv. 50 Tu/Ml Vial ID 01/08/23 10:01 X1 ONE Problem List (Last Reviewed 12/31/22 @ 15:[address] Toro Baires MD) Osteoporosis (Acute) Hyperlipidemia (Acute) Fibromyalgia (Acute) Depression (Acute) Anemia (Acute) Obstructive sleep apnea (Acute) Coronary artery disease (Acute) Rheumatoid arthritis (Acute) Debility (Acute) Infected prosthetic knee joint (Acute) Vital Signs Temp Pulse Resp BP Pulse Ox O2 Del Method 96.8 F L 91 16 150/67 H 96 Room Air 01/01/23 16:00 01/03/23 09:55 01/03/23 09:55 01/03/23 06:40 01/03/23 09:55 01/03/23 09:55 Oxygen Delivery Method Room Air Weight: 91.535 kg Body Mass Index (BMI) 36.8 Sodium 137 mmol/L (136-145) 01/01/23 07:10 Potassium 4.0 mmol/L (3.5-5.1) 01/01/23 07:10 Chloride 105 mmol/L (98-107) 01/01/23 07:10 Carbon Dioxide 30.0 mmol/L (21.0-32.0) 01/01/23 07:10 Anion Gap 2 (5-15) L 01/01/23 07:10 BUN 11 mg/dL (7-18) 01/01/23 07:10 Creatinine 0.65 mg/dL (0.55-1.02) 01/01/23 07:10 Est GFR (MDRD) Af Amer 118 mL/min (>60) 01/01/23 07:10 Est GFR (MDRD) Non-Af 97 mL/min (>60) 01/01/23 07:10 BUN/Creatinine Ratio 16.9 RATIO (10-20) 01/01/23 07:10 Glucose 100 mg/dL (74-106) 01/01/23 07:10 Assessment/Plan: 1. Pain: acetaminophen 1000mg PO Q6H PRN pain 1-3 and oxycodone 5-10mg PO Q4H PRN pain 4-10. Resident has had 5 doses of acetaminophen and 13 of oxycodone for pain from 5-10 in the knee/back. Please continue to monitor for increased pain, PRN usage, constipation and respiratory depression. 2. Bowel: senna/docusate 2T PO BID and MOM 30mL PO x1 PRN constipation. Resident had 1 dose of MOM but does not have a documented bowel movements. Please continue to monitor for constipation and PRN usage. 3. 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 ID consulted, new culture started growing pseudomonas, switch from ampicillin to piperacillin/tazobactam. Please continue to monitor cultures, S/S of infection, diarrhea and renal function. 4. DVT prophylaxis: aspirin 81mg PO BIDCM thru 01/26/23. Please continue to monitor hemoglobin (last 8.1g/dL) and S/S of bleeding. 5. Iron deficiency anemia: ferrous sulfate 325mg PO BIDCM. Please continue to monitor hemoglobin, constipation and dark stools. 6. CAD: lisinopril 20mg PO daily. Please continue to monitor BP (last 150/67), potassium (last 4mmol/L), cough and renal function. 7. Allergic rhinitis: loratadine 10mg PO daily PRN allergies. Resident has had 3 doses so far. Please continue to monitor for S/S of allergies and PRN usage. 8. GERD: pantoprazole 40mg PO daily. Please continue to monitor for S/S of GERD and diarrhea. 9. Muscle spasm: tizanidine 4mg PO QHS. Please continue to monitor for muscle sp asms, fatigue and dry mouth. 10. Vitamin D and folate deficiencies: ergocalciferol 1.25mg PO Sundays and folic acid 1mg PO DAILYCM. Please continue to monitor vitamin D levels (last 01/27/22). 11. Nausea: ondansetron 8mg PO Q8H PRN nausea. Resident has had 1 dose. Please continue to monitor for nausea and PRN usage. Assessment/Plan for indications treated with psychotropic medications: None Medical chart and medication regimen reviewed. The following medication irregularities or issues were identified: None Date of Note:: 01/03/23
[2023-01-03 14:53] VITALS: BP 128/66; PULSE 87; RESP 16; TEMP 36.4; O2SAT 94
--- NOTE | 2023-01-03 15:48 | NURSING ---
Offered bivalent covid booster, education provided on vaccine. Patient refuses at this time.
--- NOTE | 2023-01-03 18:06 | NURSING ---
pt tearful today d/t change in ATB's and frustrated that she has infection. requesting cymbalta, she use to take it at home. dr tolentino udpated, new order given.
[2023-01-03] MEDS: tiZANidine HCl 2 MG Tablet 4 MG PO (21:57)
[2023-01-04] MEDS: Acetaminophen 500 MG Tablet 1000 MG PO ×2 (00:18→10:18)
[2023-01-04] MEDS: oxyCODONE 5 MG Tablet PO ×4 (00:40→21:45)
[2023-01-04] MEDS: Lisinopril 20 MG Tablet PO (05:14)
[2023-01-04] MEDS: Pantoprazole Sodium 40 MG Tablet PO (05:15)
[2023-01-04] MEDS: DULoxetine Hcl 30 MG Capsule PO (05:18)
[2023-01-04] MEDS: Ondansetron ODT 4 MG Tablet 8 MG PO (07:23)
[2023-01-04] MEDS: Aspirin 81 MG TAB.CHEW PO ×2 (08:17→17:58)
[2023-01-04] MEDS: Ensure Plus High Protein 120 ML LIQUID PO ×3 (08:17→17:58)
[2023-01-04] MEDS: Folic Acid 1 MG Tablet PO (08:17)
[2023-01-04 09:25] VITALS: BMI 36.6
[2023-01-04] MEDS: 0.9% Saline Lock 10 ML Syringe IV ×3 (10:19→21:48)
[2023-01-04] MEDS: Ferrous Sulfate 325 MG Tablet PO ×2 (12:16→17:58)
[2023-01-04 15:50] VITALS: BP 137/74; PULSE 75; RESP 16; TEMP 36.1; O2SAT 92
[2023-01-04] MEDS: Senna/Docusate Sodium 1 Tablet 2 TABLET PO (17:58)
[2023-01-04] MEDS: tiZANidine HCl 2 MG Tablet 4 MG PO (21:45)
[2023-01-04 23:14] VITALS: RESP 16
[2023-01-05] MEDS: Acetaminophen 500 MG Tablet 1000 MG PO ×2 (02:42→16:23)
[2023-01-05 05:56] LABS: Hematocrit 26.1 % (37-47); Hemoglobin 8.1 g/dL (12.0-15.0)
[2023-01-05] MEDS: Pantoprazole Sodium 40 MG Tablet PO (05:56)
[2023-01-05] MEDS: Lisinopril 20 MG Tablet PO (05:56)
[2023-01-05] MEDS: Ondansetron ODT 4 MG Tablet 8 MG PO ×2 (05:56→18:53)
[2023-01-05] MEDS: Senna/Docusate Sodium 1 Tablet 2 TABLET PO (05:56)
[2023-01-05] MEDS: DULoxetine Hcl 30 MG Capsule PO (05:56)
[2023-01-05] MEDS: oxyCODONE 5 MG Tablet PO ×2 (06:02→12:08)
[2023-01-05 07:10] VITALS: O2SAT 91
[2023-01-05] MEDS: Folic Acid 1 MG Tablet PO (09:06)
[2023-01-05] MEDS: Ensure Plus High Protein 120 ML LIQUID PO ×3 (09:07→16:23)
[2023-01-05] MEDS: Aspirin 81 MG TAB.CHEW PO ×2 (09:07→16:24)
--- NOTE | 2023-01-05 09:44 | CASEMGMT ---
Social Work IDT met with patient for care plan meeting. Discussed patient's progress in PT/OT/SN. Educated to [facility] insurance with NRD 01/04 and continued stay is not guaranteed with each review. Pt is on IV ATB through 02/09. Educated to if pt cannot remain in TCU under [facility] through the end of the IVs, pt has LAURYN secondary and can go to another facility. Pt expressed understanding. Pt reports mood is good today. SW to continue to follow for DC planning and support. Monique Wilkinson, CORPORATE TAX PREPARER INVENTORY CONTROL SPECIALIST
[2023-01-05] MEDS: Ferrous Sulfate 325 MG Tablet PO ×2 (12:04→16:23)
[2023-01-05] MEDS: 0.9% Saline Lock 10 ML Syringe IV (13:31)
[2023-01-05 13:42] VITALS: BP 123/56; PULSE 70; RESP 16; TEMP 36.9; O2SAT 91
[2023-01-05] MEDS: tiZANidine HCl 2 MG Tablet 4 MG PO (20:49)
[2023-01-06] MEDS: oxyCODONE 5 MG Tablet PO ×3 (01:12→18:04)
[2023-01-06] MEDS: Pantoprazole Sodium 40 MG Tablet PO (06:28)
[2023-01-06] MEDS: DULoxetine Hcl 30 MG Capsule PO (06:28)
[2023-01-06] MEDS: Lisinopril 20 MG Tablet PO (06:29)
[2023-01-06 06:46] VITALS: O2SAT 91
[2023-01-06] MEDS: Ondansetron ODT 4 MG Tablet 8 MG PO (06:47)
[2023-01-06] MEDS: Aspirin 81 MG TAB.CHEW PO ×2 (07:18→17:38)
[2023-01-06] MEDS: Ensure Plus High Protein 120 ML LIQUID PO ×3 (07:18→17:37)
[2023-01-06] MEDS: Folic Acid 1 MG Tablet PO (07:19)
[2023-01-06] MEDS: Ferrous Sulfate 325 MG Tablet PO ×2 (12:17→17:38)
[2023-01-06] MEDS: 0.9% Saline Lock 10 ML Syringe IV (14:02)
[2023-01-06 15:33] VITALS: BP 162/79; PULSE 74; RESP 16; TEMP 37; O2SAT 94
[2023-01-06 22:00] VITALS: PULSE 80; RESP 16; O2SAT 98
[2023-01-06] MEDS: tiZANidine HCl 2 MG Tablet 4 MG PO (22:05)
[2023-01-07] MEDS: oxyCODONE 5 MG Tablet PO ×3 (02:30→18:23)
[2023-01-07 05:48] LABS: Hematocrit 27.2 % (37-47); Hemoglobin 8.3 g/dL (12.0-15.0)
[2023-01-07] MEDS: DULoxetine Hcl 30 MG Capsule PO (06:10)
[2023-01-07] MEDS: Lisinopril 20 MG Tablet PO (06:10)
[2023-01-07] MEDS: Pantoprazole Sodium 40 MG Tablet PO (06:10)
[2023-01-07] MEDS: Acetaminophen 500 MG Tablet 1000 MG PO (06:22)
[2023-01-07] MEDS: Folic Acid 1 MG Tablet PO (07:59)
[2023-01-07] MEDS: Aspirin 81 MG TAB.CHEW PO ×2 (07:59→16:47)
[2023-01-07 08:28] VITALS: O2SAT 90
[2023-01-07] MEDS: Ondansetron ODT 4 MG Tablet 8 MG PO (09:23)
[2023-01-07] MEDS: Ferrous Sulfate 325 MG Tablet PO ×2 (11:53→16:48)
[2023-01-07] MEDS: Ensure Plus High Protein 120 ML LIQUID PO ×2 (11:54→16:51)
[2023-01-07] MEDS: 0.9% Saline Lock 10 ML Syringe IV ×2 (13:13→21:47)
--- NOTE | 2023-01-07 13:28 | CASEMGMT ---
Social Work BIMS () and PHQ-9 (03/01) completed for MDS assessment. Pt reports mood has improved, and just feeling tired d/t to pain medications. Monique Wilkinson, AIR TOOL OPERATOR WINDOW DRESSER
[2023-01-07 14:25] VITALS: BP 112/49; PULSE 75; RESP 16; TEMP 36.6; O2SAT 93
[2023-01-07] MEDS: tiZANidine HCl 2 MG Tablet 4 MG PO (21:46)
[2023-01-08] MEDS: oxyCODONE 5 MG Tablet PO ×3 (05:56→22:42)
[2023-01-08] MEDS: Ondansetron ODT 4 MG Tablet 8 MG PO (05:57)
[2023-01-08] MEDS: DULoxetine Hcl 30 MG Capsule PO (05:58)
[2023-01-08] MEDS: Pantoprazole Sodium 40 MG Tablet PO (05:59)
[2023-01-08] MEDS: Lisinopril 20 MG Tablet PO (05:59)
[2023-01-08 06:00] VITALS: BP 119/68; PULSE 77
[2023-01-08] MEDS: 0.9% Saline Lock 10 ML Syringe IV ×3 (06:02→13:55)
[2023-01-08 07:30] VITALS: O2SAT 95
[2023-01-08 08:00] LABS: Anion Gap 6 (5-15); BUN 16 mg/dL (7-18); BUN/Creat Ratio 23.2 RATIO (10-20); Calcium,Total 9.2 mg/dL (8.5-10.1); Chloride 104 mmol/L (98-107); Creatinine, Serum 0.69 mg/dL (0.55-1.02); EST Glomerular Filtration Rate 91 mL/min (>60); Est Glom Filt Rate - Afr Amer 110 mL/min (>60); Glucose 99 mg/dL (74-106); Potassium 4.1 mmol/L (3.5-5.1); Sodium Level 141 mmol/L (136-145)
[2023-01-08] MEDS: Aspirin 81 MG TAB.CHEW PO ×2 (08:05→17:49)
[2023-01-08] MEDS: Folic Acid 1 MG Tablet PO (08:05)
[2023-01-08] MEDS: Ensure Plus High Protein 120 ML LIQUID PO ×2 (08:05→17:50)
[2023-01-08 08:30] LABS: Erythrocyte Sedimentation Rate 42 mm/hr (0-30)
[2023-01-08 08:32] LABS: Absolute Lymphocyte Count 2.01 X10^3/uL (0.83-4.51); Absolute Neutrophil Count 4.5 X10^3/uL (2.0-7.7); Basophil# 0.06 X10^3/uL; Basophil% 0.8 % (0-1); Eosinophil# 0.29 X10^3/uL; Eosinophils% 3.8 % (0-5); Hematocrit 29.1 % (37-47); Hemoglobin 9.2 g/dL (12.0-15.0); Lymphocyte # 2.01 X10^3/ul (0.83-4.51); Lymphocyte % 26.3 % (19-41); Mean Corp Hgb Conc 31.6 g/dL (32-36); Mean Corpuscular Hgb 29.6 pg (27.0-32.0); Mean Corpuscular Volume 93.6 fL (81-99); Mean Platelet Vol. 8.9 fl (6.2-12.0); Monocyte# 0.55 X10^3/uL; Monocyte% 7.2 % (0-10); NRBC Flagged by Analyzer 0.3 % (0-5); Neutrophil # 4.46 X10^3/uL (2.7-7.7); Neutrophil % 58.4 % (47-70); Platelet Count 484 K/mm3 (150-450); RBC Distribution Width CV 14.6 % (11.6-14.6); RBC Distribution Width SD 48.7 fl (35.1-43.9); Red Blood Count 3.11 M/mm3 (4.2-5.4); White Blood Count 7.6 K/mm3 (4.4-11.0)
--- NOTE | 2023-01-08 09:51 | RAD_ITS ---
EXAM: XR ABDOMEN, 1 VIEW CLINICAL INDICATION: diarrhea TECHNIQUE: Frontal supine view of the abdomen/pelvis. COMPARISON: Abdominal radiograph 01/01/2023. FINDINGS: GASTROINTESTINAL TRACT: Normal bowel gas pattern. ORGANS: No organomegaly. BONES/JOINTS: No acute abnormality. SOFT TISSUES: No pathological calcification. RAD/Abdomen Single View IMPRESSION: Non-obstructive bowel gas pattern. No interval change. Electronically Signed: Ephraim Ruby MD at 15:35 EDT ,
[2023-01-08] MEDS: Tuberculin,Purif.prot.deriv. 50 TU/ML Vial 0.1 ML ID (10:34)
--- NOTE | 2023-01-08 11:17 | NURSING ---
Patient c/o diarrhea and requesting imodium, N.O. imodium 2mg PO Q2H PRN and KUB. Patient aware of new orders.
--- NOTE | 2023-01-08 12:42 | NURSING ---
Patient notes 4x episodes of diarrhea, Imodium given.
[2023-01-08] MEDS: Ferrous Sulfate 325 MG Tablet PO ×2 (12:44→17:50)
[2023-01-08] MEDS: Loperamide 2 MG Capsule PO ×2 (12:44→16:03)
[2023-01-08 15:14] VITALS: BP 128/62; PULSE 85; RESP 16; TEMP 36.3; O2SAT 94
[2023-01-08 21:44] VITALS: PULSE 78; RESP 16; O2SAT 93
[2023-01-08] MEDS: tiZANidine HCl 2 MG Tablet 4 MG PO (22:41)
[2023-01-09] MEDS: Acetaminophen 500 MG Tablet 1000 MG PO (03:04)
[2023-01-09] MEDS: Lisinopril 20 MG Tablet PO (06:30)
[2023-01-09] MEDS: DULoxetine Hcl 30 MG Capsule PO (06:30)
[2023-01-09] MEDS: Pantoprazole Sodium 40 MG Tablet PO (06:30)
[2023-01-09] MEDS: oxyCODONE 5 MG Tablet PO ×3 (06:39→21:54)
[2023-01-09 07:36] LABS: Hematocrit 31.6 % (37-47); Hemoglobin 9.7 g/dL (12.0-15.0)
[2023-01-09 07:38] VITALS: O2SAT 93
[2023-01-09] MEDS: Aspirin 81 MG TAB.CHEW PO ×2 (07:43→17:18)
[2023-01-09] MEDS: Folic Acid 1 MG Tablet PO (07:43)
[2023-01-09] MEDS: Ensure Plus High Protein 120 ML LIQUID PO ×3 (07:43→17:18)
[2023-01-09] MEDS: Ergocalciferol 1.25 MG (50, 000 UNIT) Capsule PO (07:43)
[2023-01-09 08:43] VITALS: PULSE 77; O2SAT 96
[2023-01-09] MEDS: Loperamide 2 MG Capsule PO (09:07)
[2023-01-09] MEDS: Ferrous Sulfate 325 MG Tablet PO ×2 (12:09→17:18)
[2023-01-09 13:39] VITALS: BP 136/78; PULSE 100; RESP 16; TEMP 36.7; O2SAT 92
[2023-01-09] MEDS: 0.9% Saline Lock 10 ML Syringe IV (15:09)
[2023-01-09] MEDS: tiZANidine HCl 2 MG Tablet 4 MG PO (21:53)
[2023-01-10] MEDS: DULoxetine Hcl 30 MG Capsule PO (05:58)
[2023-01-10] MEDS: Lisinopril 20 MG Tablet PO (05:58)
[2023-01-10] MEDS: Pantoprazole Sodium 40 MG Tablet PO (05:58)
[2023-01-10] MEDS: oxyCODONE 5 MG Tablet PO ×2 (05:58→14:22)
[2023-01-10] MEDS: Folic Acid 1 MG Tablet PO (07:47)
[2023-01-10] MEDS: Aspirin 81 MG TAB.CHEW PO ×2 (07:47→18:15)
[2023-01-10] MEDS: Ensure Plus High Protein 120 ML LIQUID PO ×3 (07:47→18:15)
[2023-01-10] MEDS: Ferrous Sulfate 325 MG Tablet PO ×2 (12:33→18:14)
[2023-01-10] MEDS: 0.9% Saline Lock 10 ML Syringe IV (14:13)
[2023-01-10 15:24] VITALS: BP 123/77; PULSE 93; RESP 16; TEMP 36.1; O2SAT 97
[2023-01-10] MEDS: tiZANidine HCl 2 MG Tablet 4 MG PO (20:49)
[2023-01-10 21:01] VITALS: PULSE 79; RESP 18; O2SAT 95
[2023-01-11] MEDS: Ondansetron ODT 4 MG Tablet 8 MG PO (00:07)
[2023-01-11] MEDS: oxyCODONE 5 MG Tablet PO ×2 (00:07→17:21)
[2023-01-11] MEDS: Pantoprazole Sodium 40 MG Tablet PO (05:16)
[2023-01-11] MEDS: Lisinopril 20 MG Tablet PO (05:16)
[2023-01-11] MEDS: Acetaminophen 500 MG Tablet 1000 MG PO ×2 (05:16→12:11)
[2023-01-11] MEDS: DULoxetine Hcl 30 MG Capsule PO (05:19)
[2023-01-11] MEDS: Aspirin 81 MG TAB.CHEW PO ×2 (08:16→17:18)
[2023-01-11] MEDS: Ensure Plus High Protein 120 ML LIQUID PO ×3 (08:16→17:17)
[2023-01-11] MEDS: Folic Acid 1 MG Tablet PO (08:16)
[2023-01-11] MEDS: Loratadine 10 MG Tablet PO (08:26)
[2023-01-11 09:15] VITALS: PULSE 92; O2SAT 96
[2023-01-11 11:28] VITALS: BMI 36.4
[2023-01-11] MEDS: Ferrous Sulfate 325 MG Tablet PO ×2 (12:09→17:18)
[2023-01-11] MEDS: 0.9% Saline Lock 10 ML Syringe IV ×2 (13:27→22:55)
[2023-01-11 16:00] VITALS: BP 136/81; PULSE 89; RESP 16; TEMP 35.9; O2SAT 98
--- NOTE | 2023-01-11 17:36 | NURSING ---
DR ENRIQUEZ STARTED NYST S/S D/T THRUSH, SORE ORAL CAVITY
[2023-01-11] MEDS: NYSTATIN 500,000 UNIT/5 ML UDC 500000 UNIT PO (18:08)
[2023-01-11] MEDS: tiZANidine HCl 2 MG Tablet 4 MG PO (22:58)
[2023-01-12 06:30] VITALS: BP 156/84; PULSE 83
[2023-01-12] MEDS: NYSTATIN 500,000 UNIT/5 ML UDC 500000 UNIT PO ×4 (06:33→22:08)
[2023-01-12] MEDS: Pantoprazole Sodium 40 MG Tablet PO (06:33)
[2023-01-12] MEDS: DULoxetine Hcl 30 MG Capsule PO (06:33)
[2023-01-12] MEDS: Lisinopril 20 MG Tablet PO (06:35)
[2023-01-12] MEDS: 0.9% Saline Lock 10 ML Syringe IV ×3 (06:37→15:01)
[2023-01-12 08:26] VITALS: O2SAT 97
[2023-01-12] MEDS: Loperamide 2 MG Capsule PO (08:47)
[2023-01-12] MEDS: Ensure Plus High Protein 120 ML LIQUID PO ×3 (08:47→16:54)
[2023-01-12] MEDS: Folic Acid 1 MG Tablet PO (08:47)
[2023-01-12] MEDS: Acetaminophen 500 MG Tablet 1000 MG PO (08:47)
[2023-01-12] MEDS: Loratadine 10 MG Tablet PO (08:47)
[2023-01-12] MEDS: Aspirin 81 MG TAB.CHEW PO ×2 (08:47→16:54)
[2023-01-12] MEDS: oxyCODONE 5 MG Tablet PO (11:57)
[2023-01-12] MEDS: Ferrous Sulfate 325 MG Tablet PO ×2 (11:57→16:54)
--- NOTE | 2023-01-12 12:47 | NURSING ---
Addendum entered by Perez Calvin 01/12/23 14:32: patient returned from appt. Original Note: Patient left unit 12:45 for F/U appt. w/ Dr. Bethea
[2023-01-12 15:09] VITALS: BP 125/91; PULSE 85; RESP 17; TEMP 35.7; O2SAT 93
--- NOTE | 2023-01-12 16:20 | CASEMGMT ---
Social Work Completed HCPOA and LW with patient. Original and copy provided to pt. Copies placed on chart. Monique Wilkinson, WASH DRILLER HELPER NAILING MACHINE OPERATOR
[2023-01-12 19:47] VITALS: PULSE 84; RESP 16; O2SAT 97
[2023-01-12] MEDS: tiZANidine HCl 2 MG Tablet 4 MG PO (22:09)
[2023-01-13] MEDS: Acetaminophen 500 MG Tablet 1000 MG PO ×2 (02:52→13:32)
[2023-01-13] MEDS: Lisinopril 20 MG Tablet PO (06:16)
[2023-01-13] MEDS: Loperamide 2 MG Capsule PO (06:16)
[2023-01-13] MEDS: DULoxetine Hcl 30 MG Capsule PO (06:16)
[2023-01-13] MEDS: NYSTATIN 500,000 UNIT/5 ML UDC 500000 UNIT PO ×4 (06:16→21:57)
[2023-01-13] MEDS: Pantoprazole Sodium 40 MG Tablet PO (06:16)
[2023-01-13] MEDS: 0.9% Saline Lock 10 ML Syringe IV ×2 (06:19→14:41)
[2023-01-13 06:29] VITALS: BP 155/74; PULSE 79
--- NOTE | 2023-01-13 07:49 | MDS.RN ---
Information for the mds was obtained from review of the clinical record, interview of resident, staff, and direct observation of resident's care.
[2023-01-13] MEDS: Folic Acid 1 MG Tablet PO (08:02)
[2023-01-13] MEDS: Ensure Plus High Protein 120 ML LIQUID PO ×3 (08:02→17:25)
[2023-01-13] MEDS: Aspirin 81 MG TAB.CHEW PO ×2 (08:02→17:25)
--- NOTE | 2023-01-13 09:00 | NURSING ---
This Nurse received in report that PICC dressing was changed d/t bleeding under PICC dressing. Pt called out this morning d/t bleeding again under PICC dressing. This nurse went and assessed and noted bleeding around PICC line. Dr. Baires updated and N.O. to stop Zosyn and reinsert PICC line. Access PICC called will come and reinsert PICC between 10:00 and 11:00. Pharmacy called d/t having to stop Zosyn Per Pharmacy waste remaining Zosyn and continue with next dose at 1400.
[2023-01-13 10:00] VITALS: PULSE 74; O2SAT 93
[2023-01-13] MEDS: Ferrous Sulfate 325 MG Tablet PO ×2 (12:20→17:25)
[2023-01-13] MEDS: oxyCODONE 5 MG Tablet PO (12:24)
[2023-01-13 16:00] VITALS: BP 150/76; PULSE 80; RESP 16; TEMP 36.8; O2SAT 95
--- NOTE | 2023-01-13 16:09 | NURSING ---
Orders received from Dr. Bethea's office and Pt can be partial weight bearing on LLE and okay for PT to start ROM.
[2023-01-13] MEDS: tiZANidine HCl 2 MG Tablet 4 MG PO (21:57)
[2023-01-14] MEDS: oxyCODONE 5 MG Tablet PO ×3 (02:29→20:42)
[2023-01-14] MEDS: Lisinopril 20 MG Tablet PO (06:03)
[2023-01-14] MEDS: NYSTATIN 500,000 UNIT/5 ML UDC 500000 UNIT PO ×4 (06:03→21:51)
[2023-01-14] MEDS: DULoxetine Hcl 30 MG Capsule PO (06:03)
[2023-01-14] MEDS: Pantoprazole Sodium 40 MG Tablet PO (06:03)
[2023-01-14 06:55] VITALS: BP 136/73; PULSE 67
[2023-01-14] MEDS: Ensure Plus High Protein 120 ML LIQUID PO ×3 (07:52→17:41)
[2023-01-14] MEDS: Aspirin 81 MG TAB.CHEW PO ×2 (07:52→17:42)
[2023-01-14] MEDS: Folic Acid 1 MG Tablet PO (07:52)
[2023-01-14] MEDS: Ferrous Sulfate 325 MG Tablet PO ×2 (12:47→17:42)
[2023-01-14 13:25] VITALS: BP 126/73; PULSE 98; RESP 18; TEMP 35.4; O2SAT 95
[2023-01-14] MEDS: 0.9% Saline Lock 10 ML Syringe IV (14:25)
[2023-01-14] MEDS: Acetaminophen 500 MG Tablet 1000 MG PO (20:43)
[2023-01-14] MEDS: tiZANidine HCl 2 MG Tablet 4 MG PO (21:51)
[2023-01-15] MEDS: Lisinopril 20 MG Tablet PO (06:47)
[2023-01-15] MEDS: Pantoprazole Sodium 40 MG Tablet PO (06:48)
[2023-01-15] MEDS: DULoxetine Hcl 30 MG Capsule PO (06:48)
[2023-01-15] MEDS: Acetaminophen 500 MG Tablet 1000 MG PO ×2 (06:48→17:11)
[2023-01-15] MEDS: NYSTATIN 500,000 UNIT/5 ML UDC 500000 UNIT PO ×4 (06:49→22:53)
[2023-01-15] MEDS: oxyCODONE 5 MG Tablet PO (06:49)
[2023-01-15] MEDS: 0.9% Saline Lock 10 ML Syringe IV ×4 (06:50→22:51)
[2023-01-15 06:54] LABS: Absolute Neutrophil Count 4.7 X10^3/uL (2.0-7.7); Basophil# 0.09 X10^3/uL; Basophil% 1.1 % (0-1); Eosinophil# 0.45 X10^3/uL; Eosinophils% 5.5 % (0-5); Hematocrit 34.3 % (37-47); Hemoglobin 10.5 g/dL (12.0-15.0); Lymphocyte % 29.2 % (19-41); Mean Corp Hgb Conc 30.6 g/dL (32-36); Mean Corpuscular Hgb 29.3 pg (27.0-32.0); Mean Corpuscular Volume 95.8 fL (81-99); Mean Platelet Vol. 9.2 fl (6.2-12.0); Monocyte# 0.51 X10^3/uL; Monocyte% 6.2 % (0-10); NRBC Flagged by Analyzer 0 % (0-5); Neutrophil # 4.67 X10^3/uL (2.7-7.7); Neutrophil % 56.9 % (47-70); Platelet Count 609 K/mm3 (150-450); RBC Distribution Width CV 15.7 % (11.6-14.6); Red Blood Count 3.58 M/mm3 (4.2-5.4); White Blood Count 8.2 K/mm3 (4.4-11.0)
[2023-01-15 07:05] VITALS: TEMP 36.1
[2023-01-15 07:29] LABS: Anion Gap 6 (5-15); BUN 17 mg/dL (7-18); BUN/Creat Ratio 24.7 RATIO (10-20); Calcium,Total 9.5 mg/dL (8.5-10.1); Chloride 104 mmol/L (98-107); Creatinine, Serum 0.69 mg/dL (0.55-1.02); EST Glomerular Filtration Rate 92 mL/min (>60); Est Glom Filt Rate - Afr Amer 111 mL/min (>60); Glucose 90 mg/dL (74-106); Potassium 3.6 mmol/L (3.5-5.1); Sodium Level 140 mmol/L (136-145)
[2023-01-15 08:25] LABS: Erythrocyte Sedimentation Rate 64 mm/hr (0-30)
[2023-01-15] MEDS: Ensure Plus High Protein 120 ML LIQUID PO ×3 (09:07→17:08)
[2023-01-15] MEDS: Folic Acid 1 MG Tablet PO (09:08)
[2023-01-15] MEDS: Aspirin 81 MG TAB.CHEW PO ×2 (09:08→17:09)
--- NOTE | 2023-01-15 09:14 | NURSING ---
dr tolentino made aware of ^ PLT 609, pt on ASA 81mg BID. feels its from infection that is causing elevation, recheck PLTs on Tuesday
[2023-01-15 10:30] VITALS: PULSE 74; RESP 18; O2SAT 95
[2023-01-15] MEDS: Ferrous Sulfate 325 MG Tablet PO ×2 (11:27→17:09)
[2023-01-15 16:00] VITALS: BP 134/77; PULSE 83; RESP 16; TEMP 35.8; O2SAT 93
[2023-01-15] MEDS: Nystatin Powder 15gm Bottle 1 APPLIC TOPICAL (17:08)
[2023-01-15] MEDS: tiZANidine HCl 2 MG Tablet 4 MG PO (22:54)
[2023-01-16] MEDS: Acetaminophen 500 MG Tablet 1000 MG PO (03:26)
[2023-01-16] MEDS: oxyCODONE 5 MG Tablet PO ×2 (03:26→11:02)
[2023-01-16] MEDS: 0.9% Saline Lock 10 ML Syringe IV ×3 (06:31→23:03)
[2023-01-16] MEDS: NYSTATIN 500,000 UNIT/5 ML UDC 500000 UNIT PO ×4 (06:51→23:04)
[2023-01-16] MEDS: Lisinopril 20 MG Tablet PO (06:51)
[2023-01-16] MEDS: DULoxetine Hcl 30 MG Capsule PO (06:51)
[2023-01-16] MEDS: Pantoprazole Sodium 40 MG Tablet PO (06:51)
[2023-01-16 06:55] VITALS: BP 152/85; PULSE 82
[2023-01-16] MEDS: Ensure Plus High Protein 120 ML LIQUID PO ×3 (08:22→17:12)
[2023-01-16] MEDS: Nystatin Powder 15gm Bottle 1 APPLIC TOPICAL (08:22)
[2023-01-16] MEDS: Aspirin 81 MG TAB.CHEW PO ×2 (08:23→17:13)
[2023-01-16] MEDS: Folic Acid 1 MG Tablet PO (08:24)
[2023-01-16] MEDS: Ergocalciferol 1.25 MG (50, 000 UNIT) Capsule PO (08:24)
[2023-01-16] MEDS: Loratadine 10 MG Tablet PO (08:26)
[2023-01-16] MEDS: Ferrous Sulfate 325 MG Tablet PO ×2 (11:05→17:13)
[2023-01-16 15:42] VITALS: BP 130/81; PULSE 91; RESP 16; TEMP 36.3; O2SAT 94
[2023-01-16] MEDS: tiZANidine HCl 2 MG Tablet 4 MG PO (23:04)
[2023-01-17] MEDS: Pantoprazole Sodium 40 MG Tablet PO (05:25)
[2023-01-17] MEDS: DULoxetine Hcl 30 MG Capsule PO (05:25)
[2023-01-17] MEDS: NYSTATIN 500,000 UNIT/5 ML UDC 500000 UNIT PO ×4 (05:26→21:13)
[2023-01-17] MEDS: Lisinopril 20 MG Tablet PO (05:26)
[2023-01-17] MEDS: 0.9% Saline Lock 10 ML Syringe IV ×3 (05:27→14:41)
[2023-01-17 05:34] VITALS: BP 139/62; PULSE 78
[2023-01-17 05:52] LABS: Absolute Lymphocyte Count 1.63 X10^3/uL (0.83-4.51); Absolute Neutrophil Count 3.6 X10^3/uL (2.0-7.7); Basophil# 0.06 X10^3/uL; Eosinophil# 0.38 X10^3/uL; Eosinophils% 6.1 % (0-5); Hematocrit 30.2 % (37-47); Hemoglobin 9.3 g/dL (12.0-15.0); Lymphocyte # 1.63 X10^3/ul (0.83-4.51); Lymphocyte % 26.2 % (19-41); Mean Corp Hgb Conc 30.8 g/dL (32-36); Mean Corpuscular Hgb 29.2 pg (27.0-32.0); Mean Corpuscular Volume 94.7 fL (81-99); Monocyte# 0.47 X10^3/uL; Monocyte% 7.6 % (0-10); NRBC Flagged by Analyzer 0 % (0-5); Neutrophil # 3.62 X10^3/uL (2.7-7.7); Neutrophil % 58.1 % (47-70); Platelet Count 442 K/mm3 (150-450); RBC Distribution Width CV 15.8 % (11.6-14.6); RBC Distribution Width SD 54.5 fl (35.1-43.9); Red Blood Count 3.19 M/mm3 (4.2-5.4); White Blood Count 6.2 K/mm3 (4.4-11.0)
[2023-01-17] MEDS: Nystatin Powder 15gm Bottle 1 APPLIC TOPICAL ×2 (07:53→16:38)
[2023-01-17] MEDS: Loratadine 10 MG Tablet PO (07:53)
[2023-01-17] MEDS: Ensure Plus High Protein 120 ML LIQUID PO ×3 (07:53→16:38)
[2023-01-17] MEDS: Aspirin 81 MG TAB.CHEW PO ×2 (07:53→16:38)
[2023-01-17] MEDS: Folic Acid 1 MG Tablet PO (07:53)
[2023-01-17] MEDS: Acetaminophen 500 MG Tablet 1000 MG PO ×2 (09:08→15:48)
[2023-01-17] MEDS: oxyCODONE 5 MG Tablet PO ×2 (09:08→15:48)
[2023-01-17 09:10] VITALS: PULSE 87; O2SAT 95
[2023-01-17] MEDS: Ferrous Sulfate 325 MG Tablet PO ×2 (11:46→16:38)
[2023-01-17 15:01] VITALS: BP 118/74; PULSE 87; RESP 12; TEMP 35.9; O2SAT 95
[2023-01-17] MEDS: tiZANidine HCl 2 MG Tablet 4 MG PO (21:12)
[2023-01-18] MEDS: oxyCODONE 5 MG Tablet PO ×2 (01:43→12:07)
[2023-01-18] MEDS: Acetaminophen 500 MG Tablet 1000 MG PO ×2 (01:46→12:08)
[2023-01-18 05:52] LABS: Hematocrit 30.2 % (37-47); Hemoglobin 9.1 g/dL (12.0-15.0)
[2023-01-18 06:10] VITALS: BP 153/74; PULSE 77
[2023-01-18] MEDS: Pantoprazole Sodium 40 MG Tablet PO (06:12)
[2023-01-18] MEDS: NYSTATIN 500,000 UNIT/5 ML UDC 500000 UNIT PO ×4 (06:12→22:15)
[2023-01-18] MEDS: DULoxetine Hcl 30 MG Capsule PO (06:12)
[2023-01-18] MEDS: Lisinopril 20 MG Tablet PO (06:12)
[2023-01-18] MEDS: 0.9% Saline Lock 10 ML Syringe IV (06:13)
[2023-01-18] MEDS: Nystatin Powder 15gm Bottle 1 APPLIC TOPICAL ×2 (06:17→17:51)
[2023-01-18] MEDS: Ensure Plus High Protein 120 ML LIQUID PO ×3 (09:25→17:49)
[2023-01-18] MEDS: Loratadine 10 MG Tablet PO (09:25)
[2023-01-18] MEDS: Folic Acid 1 MG Tablet PO (09:26)
[2023-01-18] MEDS: Aspirin 81 MG TAB.CHEW PO ×2 (09:26→17:49)
[2023-01-18 11:00] VITALS: BMI 36.7
[2023-01-18] MEDS: Ferrous Sulfate 325 MG Tablet PO ×2 (12:10→17:49)
[2023-01-18 13:58] VITALS: BP 126/68; PULSE 89; RESP 16; TEMP 35.9; O2SAT 93
[2023-01-18] MEDS: tiZANidine HCl 2 MG Tablet 4 MG PO (22:15)
[2023-01-19] MEDS: Acetaminophen 500 MG Tablet 1000 MG PO ×2 (02:02→12:12)
[2023-01-19] MEDS: oxyCODONE 5 MG Tablet PO ×2 (02:03→12:13)
[2023-01-19] MEDS: DULoxetine Hcl 30 MG Capsule PO (06:22)
[2023-01-19] MEDS: Pantoprazole Sodium 40 MG Tablet PO (06:22)
[2023-01-19] MEDS: NYSTATIN 500,000 UNIT/5 ML UDC 500000 UNIT PO ×4 (06:23→22:14)
[2023-01-19] MEDS: Nystatin Powder 15gm Bottle 1 APPLIC TOPICAL ×2 (06:23→17:23)
[2023-01-19] MEDS: Lisinopril 20 MG Tablet PO (06:23)
[2023-01-19] MEDS: Loratadine 10 MG Tablet PO (07:48)
[2023-01-19] MEDS: Folic Acid 1 MG Tablet PO (07:48)
[2023-01-19] MEDS: Aspirin 81 MG TAB.CHEW PO ×2 (07:48→17:23)
[2023-01-19] MEDS: Ensure Plus High Protein 120 ML LIQUID PO ×3 (07:48→17:23)
[2023-01-19] MEDS: 0.9% Saline Lock 10 ML Syringe IV ×3 (10:38→20:25)
[2023-01-19 10:45] VITALS: PULSE 88; O2SAT 97
[2023-01-19] MEDS: Ferrous Sulfate 325 MG Tablet PO ×2 (11:45→17:23)
[2023-01-19 14:41] VITALS: BP 97/57; PULSE 90; RESP 18; TEMP 36.1; O2SAT 93
[2023-01-19] MEDS: tiZANidine HCl 2 MG Tablet 4 MG PO (22:14)
[2023-01-20] MEDS: oxyCODONE 5 MG Tablet PO ×3 (01:03→21:38)
[2023-01-20] MEDS: Acetaminophen 500 MG Tablet 1000 MG PO ×3 (01:06→21:38)
[2023-01-20] MEDS: Lisinopril 20 MG Tablet PO (06:11)
[2023-01-20] MEDS: Pantoprazole Sodium 40 MG Tablet PO (06:11)
[2023-01-20] MEDS: Nystatin Powder 15gm Bottle 1 APPLIC TOPICAL ×2 (06:11→21:33)
[2023-01-20] MEDS: DULoxetine Hcl 30 MG Capsule PO (06:11)
[2023-01-20] MEDS: NYSTATIN 500,000 UNIT/5 ML UDC 500000 UNIT PO ×4 (06:11→21:39)
[2023-01-20] MEDS: Loratadine 10 MG Tablet PO (06:13)
[2023-01-20 06:44] VITALS: BP 163/53; PULSE 86
[2023-01-20] MEDS: Ensure Plus High Protein 120 ML LIQUID PO ×3 (07:39→18:00)
[2023-01-20] MEDS: Aspirin 81 MG TAB.CHEW PO ×2 (07:40→18:00)
[2023-01-20] MEDS: Folic Acid 1 MG Tablet PO (07:40)
[2023-01-20] MEDS: 0.9% Saline Lock 10 ML Syringe IV ×3 (11:25→21:40)
[2023-01-20] MEDS: Ferrous Sulfate 325 MG Tablet PO ×2 (11:27→18:01)
[2023-01-20 16:00] VITALS: BP 130/53; PULSE 75; RESP 16; TEMP 35.9; O2SAT 96
[2023-01-20 21:45] VITALS: PULSE 80; RESP 16; O2SAT 97
[2023-01-20] MEDS: tiZANidine HCl 2 MG Tablet 4 MG PO (23:44)
[2023-01-21] MEDS: Pantoprazole Sodium 40 MG Tablet PO (06:02)
[2023-01-21] MEDS: DULoxetine Hcl 30 MG Capsule PO (06:02)
[2023-01-21] MEDS: NYSTATIN 500,000 UNIT/5 ML UDC 500000 UNIT PO ×4 (06:02→21:03)
[2023-01-21] MEDS: Loratadine 10 MG Tablet PO (06:03)
[2023-01-21] MEDS: Lisinopril 20 MG Tablet PO (06:04)
[2023-01-21] MEDS: Folic Acid 1 MG Tablet PO (07:36)
[2023-01-21] MEDS: Nystatin Powder 15gm Bottle 1 APPLIC TOPICAL ×2 (07:36→17:56)
[2023-01-21] MEDS: Aspirin 81 MG TAB.CHEW PO ×2 (07:36→17:56)
[2023-01-21] MEDS: Ensure Plus High Protein 120 ML LIQUID PO ×3 (07:39→17:54)
[2023-01-21 10:00] VITALS: PULSE 76; RESP 16; O2SAT 96
[2023-01-21] MEDS: Acetaminophen 500 MG Tablet 1000 MG PO (11:07)
[2023-01-21] MEDS: oxyCODONE 5 MG Tablet PO (12:08)
[2023-01-21] MEDS: Ferrous Sulfate 325 MG Tablet PO ×2 (12:10→17:55)
[2023-01-21 14:42] VITALS: BP 134/71; PULSE 91; RESP 18; TEMP 35.9; O2SAT 94
[2023-01-21] MEDS: tiZANidine HCl 2 MG Tablet 4 MG PO (21:03)
[2023-01-22] MEDS: Acetaminophen 500 MG Tablet 1000 MG PO ×2 (01:27→10:32)
[2023-01-22] MEDS: oxyCODONE 5 MG Tablet PO ×3 (01:28→21:37)
[2023-01-22] MEDS: Lisinopril 20 MG Tablet PO (05:24)
[2023-01-22] MEDS: Pantoprazole Sodium 40 MG Tablet PO (05:24)
[2023-01-22] MEDS: DULoxetine Hcl 30 MG Capsule PO (05:24)
[2023-01-22] MEDS: Nystatin Powder 15gm Bottle 1 APPLIC TOPICAL ×2 (05:31→18:00)
[2023-01-22 06:17] LABS: Absolute Lymphocyte Count 1.89 X10^3/uL (0.83-4.51); Absolute Neutrophil Count 3.1 X10^3/uL (2.0-7.7); Basophil# 0.05 X10^3/uL; Basophil% 0.9 % (0-1); Eosinophil# 0.31 X10^3/uL; Eosinophils% 5.3 % (0-5); Hematocrit 31.5 % (37-47); Hemoglobin 9.8 g/dL (12.0-15.0); Lymphocyte # 1.89 X10^3/ul (0.83-4.51); Lymphocyte % 32.6 % (19-41); Mean Corp Hgb Conc 31.1 g/dL (32-36); Mean Corpuscular Volume 93.2 fL (81-99); Mean Platelet Vol. 9.2 fl (6.2-12.0); Monocyte# 0.45 X10^3/uL; Monocyte% 7.8 % (0-10); NRBC Flagged by Analyzer 0 % (0-5); Neutrophil # 3.07 X10^3/uL (2.7-7.7); Neutrophil % 52.9 % (47-70); Platelet Count 392 K/mm3 (150-450); RBC Distribution Width CV 15.1 % (11.6-14.6); RBC Distribution Width SD 51.9 fl (35.1-43.9); Red Blood Count 3.38 M/mm3 (4.2-5.4); White Blood Count 5.8 K/mm3 (4.4-11.0)
[2023-01-22 06:50] LABS: Anion Gap 4 (5-15); BUN 21 mg/dL (7-18); BUN/Creat Ratio 33.4 RATIO (10-20); Calcium,Total 9.2 mg/dL (8.5-10.1); Chloride 106 mmol/L (98-107); Creatinine, Serum 0.63 mg/dL (0.55-1.02); EST Glomerular Filtration Rate 101 mL/min (>60); Est Glom Filt Rate - Afr Amer 123 mL/min (>60); Estimated Creatinine Clearance 72.29 ml/min; Glucose 93 mg/dL (74-106); Potassium 4.1 mmol/L (3.5-5.1); Sodium Level 140 mmol/L (136-145)
[2023-01-22] MEDS: Folic Acid 1 MG Tablet PO (07:46)
[2023-01-22] MEDS: Ensure Plus High Protein 120 ML LIQUID PO ×3 (07:46→17:53)
[2023-01-22] MEDS: Aspirin 81 MG TAB.CHEW PO ×2 (07:47→17:53)
[2023-01-22 08:37] LABS: Erythrocyte Sedimentation Rate 37 mm/hr (0-30)
[2023-01-22] MEDS: Loratadine 10 MG Tablet PO (10:32)
[2023-01-22] MEDS: Ferrous Sulfate 325 MG Tablet PO ×2 (12:18→17:53)
[2023-01-22 16:00] VITALS: BP 151/75; PULSE 81; RESP 16; TEMP 36.1; O2SAT 95
[2023-01-22 19:44] VITALS: PULSE 93; RESP 18; O2SAT 95
[2023-01-22] MEDS: tiZANidine HCl 2 MG Tablet 4 MG PO (21:37)
[2023-01-23] MEDS: DULoxetine Hcl 30 MG Capsule PO (06:26)
[2023-01-23] MEDS: Pantoprazole Sodium 40 MG Tablet PO (06:26)
[2023-01-23] MEDS: Lisinopril 20 MG Tablet PO (06:26)
[2023-01-23] MEDS: Nystatin Powder 15gm Bottle 1 APPLIC TOPICAL ×2 (06:28→17:42)
[2023-01-23] MEDS: Ensure Plus High Protein 120 ML LIQUID PO ×2 (07:46→12:37)
[2023-01-23] MEDS: Aspirin 81 MG TAB.CHEW PO ×2 (07:47→17:41)
[2023-01-23] MEDS: Folic Acid 1 MG Tablet PO (07:47)
[2023-01-23] MEDS: Loratadine 10 MG Tablet PO (07:49)
[2023-01-23] MEDS: oxyCODONE 5 MG Tablet PO ×2 (09:02→21:45)
[2023-01-23] MEDS: Acetaminophen 500 MG Tablet 1000 MG PO (09:03)
[2023-01-23] MEDS: Ergocalciferol 1.25 MG (50, 000 UNIT) Capsule PO (10:36)
[2023-01-23] MEDS: Ferrous Sulfate 325 MG Tablet PO ×2 (12:37→17:41)
[2023-01-23 15:44] VITALS: BP 115/78; PULSE 82; RESP 14; TEMP 35.8; O2SAT 96
[2023-01-23] MEDS: tiZANidine HCl 2 MG Tablet 4 MG PO (21:46)
[2023-01-23] MEDS: 0.9% Saline Lock 10 ML Syringe IV (21:47)
[2023-01-24] MEDS: DULoxetine Hcl 30 MG Capsule PO (05:08)
[2023-01-24] MEDS: Lisinopril 20 MG Tablet PO (05:08)
[2023-01-24] MEDS: Nystatin Powder 15gm Bottle 1 APPLIC TOPICAL ×2 (05:08→17:50)
[2023-01-24] MEDS: Pantoprazole Sodium 40 MG Tablet PO (05:08)
[2023-01-24] MEDS: Ensure Plus High Protein 120 ML LIQUID PO ×3 (08:51→17:49)
[2023-01-24] MEDS: Aspirin 81 MG TAB.CHEW PO ×2 (08:51→17:49)
[2023-01-24] MEDS: Folic Acid 1 MG Tablet PO (08:51)
[2023-01-24] MEDS: Loperamide 2 MG Capsule PO ×2 (08:54→22:35)
[2023-01-24] MEDS: Loratadine 10 MG Tablet PO (08:54)
[2023-01-24 10:00] VITALS: PULSE 75; RESP 16; O2SAT 99
[2023-01-24] MEDS: oxyCODONE 5 MG Tablet PO (11:24)
[2023-01-24] MEDS: Acetaminophen 500 MG Tablet 1000 MG PO ×2 (11:24→22:36)
--- NOTE | 2023-01-24 13:46 | PN.ID_ITS ---
Physical Exam Narrative Ongoing diarrhea, worst first thing in AM. No fever Const alert and no apparent distress Resp normal air movement and clear to auscultation bilaterally Cardio regular rate and regular rhythm GI soft to palpation, non-tender and non-distended Skin no rashes or lesions noted ID ID: Route of nutrition/ use of supplements: [] Nutritional Intake: [] IV Site: [] Vance Catheter: [] Assessment & Plan Assessment/Plan (1) Infected prosthetic knee joint: PLAN: enterococcus and pseudomonas L knee PJI - Had aspiration done early December, cx showed enterococcus.? Taken to OR 12/29/[address] Bethea for spacer placement.? Surg cx now with enterococcus and pseudomonas.? Picc in place for 6 weeks iv abx, stop date 02/09/23 with weekly labs.? With new growth of PsA, change d amp to zosyn to cover both organisms. Doing well, reviewed labs. C/o some diarrhea, will schedule imodium qhs. No abd pain, no fever, no leukocytosis, no blood in stool. Will follow
[2023-01-24] MEDS: Ferrous Sulfate 325 MG Tablet PO ×2 (13:56→17:49)
[2023-01-24] MEDS: 0.9% Saline Lock 10 ML Syringe IV ×2 (13:56→22:20)
[2023-01-24 16:00] VITALS: BP 159/76; PULSE 84; RESP 16; TEMP 36.1; O2SAT 98
--- NOTE | 2023-01-24 19:27 | PN.TCU_ITS ---
Subjective Subjective Resident seen, examined for regulatory visit. Her only complaint is morning diarrhea, 4-5 episodes, appreciate Dr. Balbuena has addressed with scheduled imodium at bedtime. She is otherwise doing well, looking forward to being done with antibiotics, and having prosthetic knee implanted. Objective Data Objective Data Vital Signs: Vital Signs Temp Pulse Resp BP Pulse Ox O2 Del Method 96.9 F L 84 16 159/76 H 98 Room Air 01/24/23 16:00 01/24/23 16:00 01/24/23 16:00 01/24/23 16:00 01/24/23 16:00 01/24/23 16:00 Oxygen Delivery Method Room Air Weight: 91.036 kg Body Mass Index (BMI) 36.7 Intake & Output: Intake and Output for Last 24 Hours 01/22/23 01/23/23 01/24/23 23:59 23:59 23:59 Intake Total 990 / 990 870 / 870 870 / 870 Balance 990 / 990 870 / 870 870 / 870 Lab / Micro Data Result Diagrams: 01/22/23 05:50 01/22/23 05:50 Micro: Microbiology 01/04/23 07:26 Nasal Secretion SARS-CoV-2 Antigen (Rapid) - Final 01/02/23 05:25 Nasal Secretion SARS-CoV-2 Antigen (Rapid) - Final Physical Exam Const alert General Appearance: cooperative HEENT normocephalic Eyes PERRL and EOMs intact bilaterally Neck supple, no JVD and no carotid bruits Resp normal respiratory effort, normal air movement and clear to auscultation bila terally Cardio regular rate and regular rhythm GI normal to inspection, nondistended, normoactive bowel sounds, non-tender and non-distended Extremity normal capillary refill Extremity Narrative: Right upper extremity PICC line, left knee immobilizer. 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 Bethea, admitted to TCU with ning watson, here for rehabilitation, strengthening, intravenous antibiotics, prior to discharge home with daughter. * Debility - PT/OT. * Pain - Tylenol 1000mg q6h prn pain (1-3), Oxycodone 5-10mg q4h prn pain (4- 10). * Bowel - senna/colace 2 tablets bid prn, MOM 30ml po x 1 prn, Loperamide 2mg q2h prn, 2mg qhs. * Adult immunization - Administer pneumonia vaccine, covid19 vaccine, flu vaccine as appropriate. * DVT prophylaxis - Aspirin 81mg bid thru 01/26/2023. 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 Balbuena's help. * GI prophylaxis - Lactobacillus 1 tablet bid. * Vitamin D deficiency - D 1.25mg per week. * Iron deficiency anemia - Ferrous sulfate 325mg bid. * Folate deficiency - Folic acid 1mg daily. * Coronary artery disease - Lisinopril 20mg daily * Allergic rhinitis - Loratadine 10mg daily prn * GERD - Pantoprazole 40mg daily. * Muscle spasm - Tizanidine 4mg qhs. 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 * Nutrition - Ensure Plus 120ml tidcm. * Tinea Corporis - Nystatin powder topical bid. * Nausea - Zofran 8mg q8h prn. Capacity Capacity Assessment Tool Can the patient make a choice & communicate that choice?: Yes Can the patient understand benefits, risks and alternatives?: Yes Can the patient make a logical, rational choice?: Yes Is the choice the patient makes consistent w/ their values?: Yes Is there an impending, emergent risk to the patient?: No Does the patient have an Advance Directive?: No Is there a Surrogate Available?: No i.e. HCPOA: No i.e. close relative (spouse, child, parent, sibling)?: Yes
[2023-01-24] MEDS: tiZANidine HCl 2 MG Tablet 4 MG PO (22:35)
[2023-01-25] MEDS: 0.9% Saline Lock 10 ML Syringe IV ×4 (03:22→22:51)
[2023-01-25] MEDS: oxyCODONE 5 MG Tablet PO ×3 (03:36→22:56)
[2023-01-25] MEDS: Pantoprazole Sodium 40 MG Tablet PO (06:56)
[2023-01-25] MEDS: DULoxetine Hcl 30 MG Capsule PO (06:56)
[2023-01-25] MEDS: Lisinopril 20 MG Tablet PO (06:56)
[2023-01-25] MEDS: Nystatin Powder 15gm Bottle 1 APPLIC TOPICAL ×2 (06:57→17:50)
[2023-01-25 07:02] VITALS: BP 153/86; PULSE 83; RESP 16
[2023-01-25] MEDS: Loratadine 10 MG Tablet PO (08:38)
[2023-01-25] MEDS: Ensure Plus High Protein 120 ML LIQUID PO ×3 (08:38→17:49)
[2023-01-25] MEDS: Folic Acid 1 MG Tablet PO (08:38)
[2023-01-25] MEDS: Aspirin 81 MG TAB.CHEW PO ×2 (08:38→17:49)
[2023-01-25 08:43] VITALS: PULSE 91; RESP 16; O2SAT 99
[2023-01-25] MEDS: Diphenoxylate/Atrop 1 Tablet 2 TABLET PO ×2 (08:56→21:05)
[2023-01-25 11:00] VITALS: BMI 36.5
[2023-01-25] MEDS: Acetaminophen 500 MG Tablet 1000 MG PO ×2 (12:16→22:55)
[2023-01-25] MEDS: Ferrous Sulfate 325 MG Tablet PO ×2 (12:18→17:49)
--- NOTE | 2023-01-25 13:25 | RAD_ITS ---
STUDY: X-RAY - LEFT ANKLE REASON FOR EXAM: Female, 62 years old. Pain. TECHNIQUE: 3 view(s) of the ankle. COMPARISON: None. FINDINGS: Osteopenia. Normal visualized distal tibia and fibula. Normal medial and lateral malleoli. Normal tibiotalar articulation and ankle mortise. Normal visualized talus and calcaneus. The visualized subtalar, talonavicular, calcaneocuboid and tarsal articulations are normal. Normal soft tissues. RAD/Ankle min 3 Views IMPRESSION: Osteopenia with no other abnormality. Electronically Signed: Oleg Rios, at 14:58 EDT ,
[2023-01-25 14:34] VITALS: BP 131/70; PULSE 77; RESP 16; TEMP 35.9; O2SAT 96
--- NOTE | 2023-01-25 14:36 | NURSING ---
Addendum entered by Evi Carrasco 01/25/23 18:45: xray showed osteopenia, no fracture Original Note: xray of LT ankle d/t c/o sharp pain during night per pt, awaiting results.
[2023-01-25] MEDS: tiZANidine HCl 2 MG Tablet 4 MG PO (21:05)
[2023-01-26 05:26] VITALS: BP 134/76; PULSE 62
[2023-01-26] MEDS: 0.9% Saline Lock 10 ML Syringe IV ×3 (05:28→15:37)
[2023-01-26] MEDS: Lisinopril 20 MG Tablet PO (05:28)
[2023-01-26] MEDS: Nystatin Powder 15gm Bottle 1 APPLIC TOPICAL ×2 (05:28→17:07)
[2023-01-26] MEDS: DULoxetine Hcl 30 MG Capsule PO (05:28)
[2023-01-26] MEDS: Pantoprazole Sodium 40 MG Tablet PO (05:28)
[2023-01-26] MEDS: Ensure Plus High Protein 120 ML LIQUID PO ×3 (08:32→17:06)
[2023-01-26] MEDS: Folic Acid 1 MG Tablet PO (08:32)
[2023-01-26] MEDS: Aspirin 81 MG TAB.CHEW PO ×2 (08:32→17:06)
[2023-01-26] MEDS: Loratadine 10 MG Tablet PO (08:34)
[2023-01-26] MEDS: Acetaminophen 500 MG Tablet 1000 MG PO ×2 (11:31→21:50)
[2023-01-26] MEDS: oxyCODONE 5 MG Tablet PO (11:32)
[2023-01-26] MEDS: Ferrous Sulfate 325 MG Tablet PO ×2 (11:38→17:07)
[2023-01-26 15:16] VITALS: BP 122/74; PULSE 113; RESP 17; TEMP 36.8; O2SAT 93
[2023-01-26] MEDS: tiZANidine HCl 2 MG Tablet 4 MG PO (21:52)
[2023-01-26] MEDS: Diphenoxylate/Atrop 1 Tablet 2 TABLET PO (21:55)
[2023-01-26 22:00] VITALS: PULSE 85; RESP 14; O2SAT 96
[2023-01-27] MEDS: oxyCODONE 5 MG Tablet PO ×3 (02:44→21:56)
[2023-01-27] MEDS: 0.9% Saline Lock 10 ML Syringe IV ×3 (06:01→21:52)
[2023-01-27] MEDS: Pantoprazole Sodium 40 MG Tablet PO (06:06)
[2023-01-27] MEDS: DULoxetine Hcl 30 MG Capsule PO (06:06)
[2023-01-27] MEDS: Lisinopril 20 MG Tablet PO (06:07)
[2023-01-27] MEDS: Nystatin Powder 15gm Bottle 1 APPLIC TOPICAL ×2 (06:07→18:47)
[2023-01-27] MEDS: Folic Acid 1 MG Tablet PO (07:49)
[2023-01-27] MEDS: Ensure Plus High Protein 120 ML LIQUID PO ×3 (07:49→18:47)
[2023-01-27] MEDS: Ferrous Sulfate 325 MG Tablet PO ×2 (12:18→18:47)
[2023-01-27] MEDS: Acetaminophen 500 MG Tablet 1000 MG PO ×2 (12:18→21:56)
[2023-01-27 15:16] VITALS: BP 123/54; PULSE 78; RESP 16; TEMP 35.8; O2SAT 93
[2023-01-27] MEDS: Diphenoxylate/Atrop 1 Tablet 2 TABLET PO (21:52)
[2023-01-27] MEDS: tiZANidine HCl 2 MG Tablet 4 MG PO (21:53)
[2023-01-27 23:45] VITALS: PULSE 58; RESP 18; O2SAT 98
[2023-01-28] MEDS: Lisinopril 20 MG Tablet PO (06:08)
[2023-01-28] MEDS: Nystatin Powder 15gm Bottle 1 APPLIC TOPICAL ×2 (06:08→17:33)
[2023-01-28] MEDS: DULoxetine Hcl 30 MG Capsule PO (06:08)
[2023-01-28] MEDS: Pantoprazole Sodium 40 MG Tablet PO (06:08)
[2023-01-28] MEDS: 0.9% Saline Lock 10 ML Syringe IV ×4 (06:09→21:47)
[2023-01-28 06:20] VITALS: BP 126/65; PULSE 62
[2023-01-28] MEDS: Folic Acid 1 MG Tablet PO (07:47)
[2023-01-28] MEDS: Ensure Plus High Protein 120 ML LIQUID PO ×3 (07:47→17:33)
[2023-01-28] MEDS: oxyCODONE 5 MG Tablet PO (11:37)
[2023-01-28] MEDS: Ferrous Sulfate 325 MG Tablet PO ×2 (11:38→17:33)
[2023-01-28] MEDS: Acetaminophen 500 MG Tablet 1000 MG PO ×2 (11:38→21:59)
[2023-01-28 16:00] VITALS: BP 155/59; PULSE 88; RESP 14; TEMP 36; O2SAT 94
[2023-01-28] MEDS: tiZANidine HCl 2 MG Tablet 4 MG PO (21:49)
[2023-01-28] MEDS: Diphenoxylate/Atrop 1 Tablet 2 TABLET PO (21:55)
[2023-01-29] MEDS: Pantoprazole Sodium 40 MG Tablet PO (06:01)
[2023-01-29] MEDS: Nystatin Powder 15gm Bottle 1 APPLIC TOPICAL ×2 (06:01→17:15)
[2023-01-29] MEDS: 0.9% Saline Lock 10 ML Syringe IV ×2 (06:01→19:47)
[2023-01-29] MEDS: DULoxetine Hcl 30 MG Capsule PO (06:01)
[2023-01-29] MEDS: Lisinopril 20 MG Tablet PO (06:01)
[2023-01-29 07:07] LABS: Erythrocyte Sedimentation Rate 54 mm/hr (0-30)
[2023-01-29 07:19] LABS: Anion Gap 5 (5-15); BUN 15 mg/dL (7-18); BUN/Creat Ratio 24.8 RATIO (10-20); Calcium,Total 8.9 mg/dL (8.5-10.1); Chloride 108 mmol/L (98-107); EST Glomerular Filtration Rate 106 mL/min (>60); Est Glom Filt Rate - Afr Amer 129 mL/min (>60); Glucose 93 mg/dL (74-106); Potassium 4.1 mmol/L (3.5-5.1); Sodium Level 142 mmol/L (136-145)
[2023-01-29 07:46] LABS: Absolute Lymphocyte Count 1.45 X10^3/uL (0.83-4.51); Absolute Neutrophil Count 2.7 X10^3/uL (2.0-7.7); Basophil# 0.06 X10^3/uL; Basophil% 1.2 % (0-1); Eosinophil# 0.49 X10^3/uL; Eosinophils% 9.4 % (0-5); Hematocrit 30.8 % (37-47); Hemoglobin 10.1 g/dL (12.0-15.0); Lymphocyte # 1.45 X10^3/ul (0.83-4.51); Lymphocyte % 27.9 % (19-41); Mean Corp Hgb Conc 32.8 g/dL (32-36); Mean Corpuscular Hgb 30.4 pg (27.0-32.0); Mean Corpuscular Volume 92.8 fL (81-99); Mean Platelet Vol. 9.4 fl (6.2-12.0); Monocyte# 0.44 X10^3/uL; Monocyte% 8.5 % (0-10); NRBC Flagged by Analyzer 0 % (0-5); Neutrophil # 2.73 X10^3/uL (2.7-7.7); Neutrophil % 52.4 % (47-70); Platelet Count 309 K/mm3 (150-450); RBC Distribution Width CV 14.6 % (11.6-14.6); Red Blood Count 3.32 M/mm3 (4.2-5.4); White Blood Count 5.2 K/mm3 (4.4-11.0)
[2023-01-29] MEDS: Ensure Plus High Protein 120 ML LIQUID PO ×3 (07:50→17:15)
[2023-01-29] MEDS: Folic Acid 1 MG Tablet PO (07:50)
[2023-01-29] MEDS: Acetaminophen 500 MG Tablet 1000 MG PO ×2 (07:51→17:15)
[2023-01-29] MEDS: Ferrous Sulfate 325 MG Tablet PO ×2 (11:58→17:15)
[2023-01-29] MEDS: oxyCODONE 5 MG Tablet PO (11:59)
[2023-01-29 14:00] VITALS: BP 142/78; PULSE 96; RESP 18; TEMP 35.8; O2SAT 97
[2023-01-29 19:50] VITALS: PULSE 72; RESP 16; O2SAT 98
[2023-01-29] MEDS: tiZANidine HCl 2 MG Tablet 4 MG PO (22:23)
[2023-01-30] MEDS: Acetaminophen 500 MG Tablet 1000 MG PO ×2 (02:46→14:09)
[2023-01-30] MEDS: Lisinopril 20 MG Tablet PO (06:23)
[2023-01-30] MEDS: DULoxetine Hcl 30 MG Capsule PO (06:23)
[2023-01-30] MEDS: Pantoprazole Sodium 40 MG Tablet PO (06:23)
[2023-01-30] MEDS: Nystatin Powder 15gm Bottle 1 APPLIC TOPICAL ×2 (06:46→16:54)
[2023-01-30 06:56] VITALS: BP 163/91; PULSE 74
[2023-01-30] MEDS: Ensure Plus High Protein 120 ML LIQUID PO ×2 (07:36→16:54)
[2023-01-30] MEDS: Folic Acid 1 MG Tablet PO (07:36)
[2023-01-30 09:43] VITALS: PULSE 72; RESP 16; O2SAT 98
[2023-01-30] MEDS: Ergocalciferol 1.25 MG (50, 000 UNIT) Capsule PO (10:45)
[2023-01-30] MEDS: 0.9% Saline Lock 10 ML Syringe IV ×3 (11:07→23:03)
[2023-01-30] MEDS: Ferrous Sulfate 325 MG Tablet PO ×2 (11:08→16:54)
[2023-01-30 14:58] VITALS: BP 152/87; PULSE 81; RESP 16; TEMP 36.1; O2SAT 97
--- NOTE | 2023-01-30 16:16 | NURSING ---
Dr. Bello approved JESSICA request for tomorrow 01/31/23, 1100 to 1400 with family.
[2023-01-30] MEDS: oxyCODONE 5 MG Tablet PO ×2 (16:59→23:03)
[2023-01-30] MEDS: tiZANidine HCl 2 MG Tablet 4 MG PO (22:58)
[2023-01-31 05:10] VITALS: BP 159/76; PULSE 76
[2023-01-31] MEDS: DULoxetine Hcl 30 MG Capsule PO (05:14)
[2023-01-31] MEDS: Lisinopril 20 MG Tablet PO (05:15)
[2023-01-31] MEDS: Pantoprazole Sodium 40 MG Tablet PO (05:15)
[2023-01-31] MEDS: Nystatin Powder 15gm Bottle 1 APPLIC TOPICAL ×2 (05:15→17:48)
[2023-01-31] MEDS: Ensure Plus High Protein 120 ML LIQUID PO ×2 (07:50→17:49)
[2023-01-31] MEDS: Folic Acid 1 MG Tablet PO (07:51)
[2023-01-31] MEDS: Loratadine 10 MG Tablet PO (10:41)
[2023-01-31] MEDS: oxyCODONE 5 MG Tablet PO ×2 (10:41→22:55)
[2023-01-31] MEDS: Ferrous Sulfate 325 MG Tablet PO ×2 (10:41→17:47)
[2023-01-31] MEDS: Acetaminophen 500 MG Tablet 1000 MG PO ×2 (10:45→22:56)
[2023-01-31 15:09] VITALS: BP 129/70; PULSE 116; RESP 14; TEMP 36.1; O2SAT 95
[2023-01-31] MEDS: tiZANidine HCl 2 MG Tablet 4 MG PO (22:11)
[2023-01-31] MEDS: 0.9% Saline Lock 10 ML Syringe IV (22:14)
[2023-02-01] MEDS: Pantoprazole Sodium 40 MG Tablet PO (06:55)
[2023-02-01] MEDS: Lisinopril 20 MG Tablet PO (06:56)
[2023-02-01] MEDS: DULoxetine Hcl 30 MG Capsule PO (06:56)
[2023-02-01] MEDS: Nystatin Powder 15gm Bottle 1 APPLIC TOPICAL ×2 (06:59→17:50)
[2023-02-01] MEDS: Ensure Plus High Protein 120 ML LIQUID PO ×3 (07:45→17:50)
[2023-02-01] MEDS: Folic Acid 1 MG Tablet PO (07:46)
[2023-02-01 11:00] VITALS: BMI 36.4
[2023-02-01] MEDS: oxyCODONE 5 MG Tablet PO ×2 (11:54→21:46)
[2023-02-01] MEDS: Ferrous Sulfate 325 MG Tablet PO ×2 (11:54→17:50)
[2023-02-01 14:33] VITALS: BP 150/89; PULSE 93; RESP 16; TEMP 36; O2SAT 95
[2023-02-01] MEDS: 0.9% Saline Lock 10 ML Syringe IV ×2 (14:34→21:14)
--- NOTE | 2023-02-01 15:27 | CASEMGMT ---
Social Work Spoke with pt about DC plans. Confirmed last day of IV ATB is 02/09, pt to DC 02/10. Offered skilled HHC. Pt agreed to PT. No DME needs. Dtr to transport. Pt states she used [facility] prior and agreeable to referral. Phoned referral to [facility] for PT. Pt has since changed insurance so [facility] cannot accept. SW spoke with pt to update. Offered skilled HHC list. Pt states she has received therapy HEPs and prefers to do that. SW educated if she changes her mind to notify this worker or can speak with PCP on getting order for HHC or OP therapy. Pt expressed understanding. Plan: DC home with dtr 02/10, no needs ONUR GayleW
[2023-02-01] MEDS: Acetaminophen 500 MG Tablet 1000 MG PO (21:47)
[2023-02-02] MEDS: DULoxetine Hcl 30 MG Capsule PO (05:49)
[2023-02-02] MEDS: Nystatin Powder 15gm Bottle 1 APPLIC TOPICAL ×2 (05:49→17:29)
[2023-02-02] MEDS: 0.9% Saline Lock 10 ML Syringe IV ×3 (05:49→22:03)
[2023-02-02] MEDS: Ensure Plus High Protein 120 ML LIQUID PO ×3 (07:49→17:29)
--- NOTE | 2023-02-02 08:46 | DS.PCM_ITS ---
Providers Date of Admission: 12/31/22 Primary Care Physician: Dr. Duane Odom MD Consultations 12/31/22 15:44 Consult: Infectious Disease Routine Consulting Provider: Gerald Balbuena Reason for Consult: Left PJI s/p explant TKA ATB spacer placement. EMERGENT Consult: No MD Notified: Yes Date Notified: 01/03/23 Time Notified: 09:11 Method of Notification: Verbal Reason For Visit: EXPLANT TOTAL KNEE IMPLATS LT, PLACE SPACER Diagnosis Discharge Diagnosis (1) Debility: Status: Acute Code(s): R53.81 - Other malaise (2) Infected prosthetic knee joint: Status: Acute Code(s): T84.59XA - Infection and inflammatory reaction due to other internal joint prosthesis, initial encounter; Z96.659 - Presence of unspecified artificial knee joint (3) Rheumatoid arthritis: Status: Acute Code(s): M06.9 - Rheumatoid arthritis, unspecified (4) Coronary artery disease: Status: Acute Code(s): I25.10 - Atherosclerotic heart disease of [place] coronary artery without angina pectoris (5) History of non-ST elevation myocardial infarction (NSTEMI): Status: Resolved Code(s): I25.2 - Old myocardial infarction (6) Obstructive sleep apnea: Status: Acute Code(s): G47.33 - Obstructive sleep apnea (adult) (pediatric) (7) Anemia: Status: Acute Code(s): D64.9 - Anemia, unspecified (8) Depression: Status: Acute Code(s): F32.A - Depression, unspecified (9) Fibromyalgia: Status: Acute Code(s): M79.7 - Fibromyalgia (10) Hyperlipidemia: Status: Acute Code(s): E78.5 - Hyperlipidemia, unspecified (11) Osteoporosis: Status: Acute Code(s): M81.0 - Age-related osteoporosis without current pathological fracture Plan 62 year old female with below past medical history 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 Bethea, admitted to TCU with clark, here for rehabilitation, strengthening, intravenous antibiotics, prior to discharge home with daughter. * Debility - PT/OT. * Pain - Tylenol 1000mg q6h prn pain (1-3), Oxycodone 5-10mg q4h prn pain (4- 10). * Bowel - senna/colace 2 tablets bid prn, MOM 30ml po x 1 prn, Loperamide 2mg q2h prn, 2mg qhs. * Adult immunization - Administer pneumonia vaccine, covid19 vaccine, flu vaccine as appropriate. * DVT prophylaxis - Aspirin 81mg bid thru 01/26/2023. 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 Balbuena's help. * GI prophylaxis - Lactobacillus 1 tablet bid. * Vitamin D deficiency - D 1.25mg per week. * Iron deficiency anemia - Ferrous sulfate 325mg bid. * Folate deficiency - Folic acid 1mg daily. * Coronary artery disease - Lisinopril 20mg daily * Allergic rhinitis - Loratadine 10mg daily prn * GERD - Pantoprazole 40mg daily. * Muscle spasm - Tizanidine 4mg qhs. 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 * Nutrition - Ensure Plus 120ml tidcm. * Tinea Corporis - Nystatin powder topical bid. * Nausea - Zofran 8mg q8h prn. Medications at Discharge Home Medications fexofenadine 60 mg tablet 60 mg PO DAILY PRN Allergies 06/11/20 acetaminophen 500 mg tablet 1,000 mg PO Q8 PRN Pain #90 tabs 05/27/21 ergocalciferol (vitamin D2) 1,250 mcg (50,000 unit) capsule 50,000 unit PO Mejia@1000 supplement 06/29/21 folic acid 1 mg tablet 1 mg PO DAILY supplement 12/22/22 lisinopril 10 mg tablet 20 mg PO DAILY blood pressure 12/22/22 duloxetine 30 mg capsule,delayed release 30 mg PO DAILY 30 days #30 caps 3 ferrous sulfate 325 mg (65 mg iron) tablet (FeroSul) 325 mg PO 1200,1700 30 days #60 tabs 02/02/23 oxycodone 5 mg tablet 5 mg PO Q6H PRN PRN Pain Score 4-10 7 days #28 tabs 02/02/23 Hospital Course Operations - (See below.) Procedures None Summary of Care Provided Minutes Spent on Discharge: 35 Hospital Course: 62 year old female with below past medical history 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 Bethea, admitted to TCU with debility, here for rehabilitation, strengthening, intravenous antibiotics, prior to discharge home with daughter. Discharge home with daughter 02/10/2023, No needs. Physical Exam Const alert General Appearance: cooperative HEENT normocephalic Eyes PERRL and EOMs intact bilaterally Neck supple, no JVD and no carotid bruits Resp normal respiratory effort, normal air movement and clear to auscultation bilat erally Cardio regular rate and regular rhythm GI normal to inspection, nondistended, normoactive bowel sounds, non-tender and non-distended Extremity normal capillary refill General Extremity: Negative for edema Skin no rashes or lesions noted General Skin Exam: no breakdown Psych affect normal Appearance: appropriate Weight / BMI Weight Weight: 90.378 kg Body Mass Index (BMI) 36.4 ABG / Lab / Microbiology Data Result Diagrams: 01/29/23 06:37 01/29/23 06:37 Microbiology: Microbiology 01/04/23 07:26 Nasal Secretion SARS-CoV-2 Antigen (Rapid) - Final 01/02/23 05:25 Nasal Secretion SARS-CoV-2 Antigen (Rapid) - Final D/C Instructions Discharge Diet: No restrictions Discharge Activity: Return to Normal Activity, May Shower and Use Walker Weight Bearing Status: Weight bearing as tolerated Call your doctor if you observe: Fever of 101 or Higher, Inability to urinate, Inability to have a bowel movement, Shortness of breath, Dizziness, Fainting spells, Swelling in the ankles, Chest pain and Uncontrolled pain Additional Instructions: Discharge home with daughter 02/10/2023, No needs. Please Follow Up With: Otf Bethea MD When: As scheduled. Meaningful Use Info Meaningful Use Diagnoses (Choose all that apply): None applicable Discharge Plan Admission Admit Date/Time: 12/31/22 14:34 Primary Reason for Your Visit: Debility. Attending Provider: Toro Baires Chi Primary Care Provider: Duane Odom Consulting Providers: Gerald Balbeuna Instructions Additional Instructions / Restrictions: Discharge home with daughter 02/10/2023, No needs. Discharge Orders/Prescriptions Prescriptions: New ferrous sulfate [FeroSul] 325 mg (65 mg iron) Tablet 325 mg PO 1200,1700 30 Days Qty: 60 0RF oxycodone 5 mg Tablet 5 mg PO Q6H PRN PRN (Reason: Pain Score 4-10) 7 Days Qty: 28 0RF duloxetine 30 mg Capsule,Delayed Release(Dr/Ec) 30 mg PO DAILY 30 Days Qty: 30 0RF Continued fexofenadine 60 MG tablet 60 mg PO DAILY PRN (Reason: Allergies) acetaminophen 500 mg Tablet 1,000 mg PO Q8 PRN (Reason: Pain) Qty: 90 0RF ergocalciferol (vitamin D2) 50,000 UNIT capsule 50,000 unit PO Mejia@1000 folic acid 1 mg Tablet 1 mg PO DAILY lisinopril 10 mg tablet 20 mg PO DAILY Discontinued tizanidine 4 mg tablet 4 mg PO QHS Label Comments: TAKE 1 TABLET BY MOUTH AT BEDTIME NEEDED oxycodone 5 mg Tablet 5 - 10 mg PO Q4H PRN PRN (Reason: Pain Score 4-10) 7 Days Qty: 30 0RF sennosides-docusate sodium [Stool Softener-Stimulant Laxat] 8.6-50 mg tablet 2 tab PO BID Rx Instructions: Take until first bowel movement, then as needed pantoprazole 40 mg tablet,delayed release (DR/EC) 40 mg PO DAILY ferrous sulfate [FeroSul] 325 mg (65 mg iron) tablet 325 mg PO 1200,1700 ampicillin sodium 2 gram recon soln 2 g IV Q6 Rx Instructions: stop date 02/09/23 dx: prosthetic joint infection weekly bmp, cbc, and esr. Fax to [phone] aspirin 81 mg tablet,chewable 81 mg PO BIDCM Rx Instructions: Take 81 mg aspirin twice daily for 4 weeks postoperatively for DVT prophylaxis. Referrals / Follow Up: Duane Odom MD [Primary Care Provider] - Disposition Disposition (needs filled in before D/C Order can be placed): Home, Self Care
[2023-02-02] MEDS: Acetaminophen 500 MG Tablet 1000 MG PO ×2 (09:22→22:06)
[2023-02-02] MEDS: Loratadine 10 MG Tablet PO (09:22)
[2023-02-02] MEDS: Ferrous Sulfate 325 MG Tablet PO ×2 (11:56→17:30)
[2023-02-02] MEDS: oxyCODONE 5 MG Tablet PO ×2 (11:59→22:06)
[2023-02-02 13:45] VITALS: BP 178/92; PULSE 105; RESP 16; TEMP 37; O2SAT 94
[2023-02-02 22:00] VITALS: PULSE 83; RESP 16; O2SAT 94
[2023-02-03] MEDS: 0.9% Saline Lock 10 ML Syringe IV ×3 (02:24→22:27)
[2023-02-03] MEDS: DULoxetine Hcl 30 MG Capsule PO (06:41)
[2023-02-03] MEDS: Nystatin Powder 15gm Bottle 1 APPLIC TOPICAL ×2 (06:42→17:36)
[2023-02-03] MEDS: Ensure Plus High Protein 120 ML LIQUID PO ×3 (07:54→17:36)
[2023-02-03 09:20] VITALS: PULSE 84; O2SAT 96
[2023-02-03] MEDS: Ferrous Sulfate 325 MG Tablet PO ×2 (12:29→17:36)
[2023-02-03] MEDS: Acetaminophen 500 MG Tablet 1000 MG PO ×2 (12:29→23:15)
[2023-02-03 13:15] VITALS: BP 165/90; PULSE 96; RESP 16; TEMP 37; O2SAT 95
[2023-02-03] MEDS: oxyCODONE 5 MG Tablet PO ×2 (14:43→23:14)
[2023-02-04] MEDS: DULoxetine Hcl 30 MG Capsule PO (06:30)
[2023-02-04] MEDS: Nystatin Powder 15gm Bottle 1 APPLIC TOPICAL ×2 (06:42→16:35)
[2023-02-04] MEDS: Ensure Plus High Protein 120 ML LIQUID PO ×3 (07:41→16:34)
[2023-02-04] MEDS: 0.9% Saline Lock 10 ML Syringe IV ×4 (10:56→23:00)
[2023-02-04] MEDS: oxyCODONE 5 MG Tablet PO ×2 (11:01→23:04)
[2023-02-04] MEDS: Acetaminophen 500 MG Tablet 1000 MG PO ×2 (11:01→23:04)
[2023-02-04] MEDS: Ferrous Sulfate 325 MG Tablet PO ×2 (11:59→16:34)
[2023-02-04 13:58] VITALS: BP 157/85; PULSE 90; RESP 16; TEMP 36.2; O2SAT 95
[2023-02-05] MEDS: DULoxetine Hcl 30 MG Capsule PO (05:41)
[2023-02-05] MEDS: Nystatin Powder 15gm Bottle 1 APPLIC TOPICAL ×2 (05:42→16:56)
[2023-02-05 08:16] LABS: Absolute Lymphocyte Count 1.41 X10^3/uL (0.83-4.51); Absolute Neutrophil Count 4.3 X10^3/uL (2.0-7.7); Basophil# 0.07 X10^3/uL; Eosinophil# 0.46 X10^3/uL; Eosinophils% 6.8 % (0-5); Hematocrit 36.1 % (37-47); Hemoglobin 11.4 g/dL (12.0-15.0); Lymphocyte # 1.41 X10^3/ul (0.83-4.51); Lymphocyte % 20.8 % (19-41); Mean Corp Hgb Conc 31.6 g/dL (32-36); Mean Corpuscular Volume 91.9 fL (81-99); Mean Platelet Vol. 9.2 fl (6.2-12.0); Monocyte# 0.53 X10^3/uL; Monocyte% 7.8 % (0-10); NRBC Flagged by Analyzer 0 % (0-5); Neutrophil # 4.25 X10^3/uL (2.7-7.7); Neutrophil % 62.9 % (47-70); Platelet Count 393 K/mm3 (150-450); RBC Distribution Width CV 14.2 % (11.6-14.6); RBC Distribution Width SD 48.1 fl (35.1-43.9); Red Blood Count 3.93 M/mm3 (4.2-5.4); White Blood Count 6.8 K/mm3 (4.4-11.0)
[2023-02-05] MEDS: Ensure Plus High Protein 120 ML LIQUID PO ×3 (08:26→16:56)
[2023-02-05 08:27] LABS: Anion Gap 4 (5-15); BUN 15 mg/dL (7-18); BUN/Creat Ratio 22.4 RATIO (10-20); Calcium,Total 9.6 mg/dL (8.5-10.1); Chloride 106 mmol/L (98-107); Creatinine, Serum 0.67 mg/dL (0.55-1.02); EST Glomerular Filtration Rate 94 mL/min (>60); Est Glom Filt Rate - Afr Amer 114 mL/min (>60); Estimated Creatinine Clearance 67.97 ml/min; Glucose 107 mg/dL (74-106); Sodium Level 141 mmol/L (136-145)
[2023-02-05 08:51] LABS: Erythrocyte Sedimentation Rate 64 mm/hr (0-30)
[2023-02-05 10:56] VITALS: PULSE 92; RESP 16
[2023-02-05] MEDS: oxyCODONE 5 MG Tablet PO (11:07)
[2023-02-05] MEDS: Acetaminophen 500 MG Tablet 1000 MG PO ×2 (11:07→22:08)
[2023-02-05] MEDS: Ferrous Sulfate 325 MG Tablet PO ×2 (11:56→16:56)
[2023-02-05] MEDS: 0.9% Saline Lock 10 ML Syringe IV (13:40)
--- NOTE | 2023-02-05 14:53 | NURSING ---
pt requesting to change lomotil to PRN d/t causing side effects of dry mouth. also asking to have cymbalta to be removed and restart zanaflex as previously ordered. dr tolentino updated, orders received.
[2023-02-05 16:00] VITALS: BP 158/77; PULSE 85; RESP 16; TEMP 36.4; O2SAT 98
[2023-02-05] MEDS: Magnesium Hydroxide 30 ML UDC PO (19:26)
[2023-02-05] MEDS: tiZANidine HCl 2 MG Tablet 4 MG PO (22:01)
[2023-02-06] MEDS: Nystatin Powder 15gm Bottle 1 APPLIC TOPICAL (06:13)
[2023-02-06] MEDS: Ensure Plus High Protein 120 ML LIQUID PO ×3 (07:45→17:29)
[2023-02-06] MEDS: Ergocalciferol 1.25 MG (50, 000 UNIT) Capsule PO (07:45)
[2023-02-06] MEDS: Ferrous Sulfate 325 MG Tablet PO ×2 (12:20→17:29)
[2023-02-06] MEDS: Acetaminophen 500 MG Tablet 1000 MG PO ×2 (12:20→22:27)
[2023-02-06] MEDS: 0.9% Saline Lock 10 ML Syringe IV ×2 (14:11→22:27)
[2023-02-06 16:00] VITALS: BP 142/78; PULSE 88; RESP 16; TEMP 35.8; O2SAT 98
--- NOTE | 2023-02-06 21:17 | NURSING ---
contacted via telephone, notified of patient c/o heartburn, requesting Tums. New order received for Tums PO 500mg Q4H PRN heartburn/indigestion. Order repeated back.
[2023-02-06] MEDS: tiZANidine HCl 2 MG Tablet 4 MG PO (22:28)
[2023-02-06] MEDS: Calcium Carbonate 500 MG Tablet PO (23:53)
[2023-02-07] MEDS: Nystatin Powder 15gm Bottle 1 APPLIC TOPICAL ×2 (06:58→16:26)
[2023-02-07] MEDS: Acetaminophen 500 MG Tablet 1000 MG PO ×3 (07:03→21:51)
[2023-02-07 07:09] VITALS: BP 156/83; PULSE 67
[2023-02-07] MEDS: Ensure Plus High Protein 120 ML LIQUID PO ×3 (07:53→16:26)
--- NOTE | 2023-02-07 08:36 | NURSING ---
Dr. Baires notified patient takes Lisinopril 20mg PO QD at home. Last dose on 02/01. Medication is not on NOV. Patient having headache and slightly elevated BP. Patient also asking for Omeprazole. New orders placed by Dr. Baires.
[2023-02-07] MEDS: Pantoprazole Sodium 40 MG Tablet PO (09:25)
[2023-02-07] MEDS: Lisinopril 20 MG Tablet PO (09:25)
[2023-02-07 09:26] VITALS: PULSE 87; O2SAT 92
[2023-02-07] MEDS: Loratadine 10 MG Tablet PO (09:35)
[2023-02-07] MEDS: Ferrous Sulfate 325 MG Tablet PO ×2 (11:17→16:26)
[2023-02-07] MEDS: 0.9% Saline Lock 10 ML Syringe IV ×2 (11:18→13:38)
[2023-02-07] MEDS: oxyCODONE 5 MG Tablet PO ×2 (13:45→21:50)
[2023-02-07 15:21] VITALS: BP 130/95; PULSE 99; RESP 18; TEMP 36.1; O2SAT 95
--- NOTE | 2023-02-07 15:44 | CASEMGMT ---
Social Work Insurance officially issued DC 02/10. Confirmed with pt DC home with no needs. Dtr to transport at 0830 prior to appt. Plan: DC 02/10 home with dtr with no needs ONUR GayleW
[2023-02-07] MEDS: tiZANidine HCl 2 MG Tablet 4 MG PO (21:52)
[2023-02-08] MEDS: Pantoprazole Sodium 40 MG Tablet PO (06:15)
[2023-02-08] MEDS: Lisinopril 20 MG Tablet PO (06:16)
[2023-02-08] MEDS: Nystatin Powder 15gm Bottle 1 APPLIC TOPICAL ×2 (06:23→17:56)
[2023-02-08] MEDS: Ensure Plus High Protein 120 ML LIQUID PO ×3 (08:27→17:56)
[2023-02-08] MEDS: Loratadine 10 MG Tablet PO (08:30)
[2023-02-08 10:17] VITALS: BMI 36.6
[2023-02-08] MEDS: oxyCODONE 5 MG Tablet PO ×2 (11:59→22:58)
[2023-02-08] MEDS: Ferrous Sulfate 325 MG Tablet PO ×2 (11:59→17:56)
[2023-02-08 14:20] VITALS: BP 151/92; PULSE 93; RESP 18; TEMP 36.1; O2SAT 97
[2023-02-08] MEDS: 0.9% Saline Lock 10 ML Syringe IV ×2 (14:42→22:59)
[2023-02-08 19:13] VITALS: BP 104/58; PULSE 90
[2023-02-08] MEDS: tiZANidine HCl 2 MG Tablet 4 MG PO (22:55)
[2023-02-08] MEDS: Acetaminophen 500 MG Tablet 1000 MG PO (23:07)
[2023-02-08 23:09] VITALS: PULSE 87; RESP 16; O2SAT 98
--- NOTE | 2023-02-08 23:46 | NURSING ---
pt requested tylenol and oxycodone to manage her pain with her muscle relaxer before bed. RN aware
[2023-02-09 06:35] VITALS: BP 145/91; PULSE 76
[2023-02-09] MEDS: Lisinopril 20 MG Tablet PO (06:37)
[2023-02-09] MEDS: Pantoprazole Sodium 40 MG Tablet PO (06:37)
[2023-02-09] MEDS: Nystatin Powder 15gm Bottle 1 APPLIC TOPICAL ×2 (06:37→18:12)
[2023-02-09] MEDS: Ensure Plus High Protein 120 ML LIQUID PO ×3 (07:51→18:12)
[2023-02-09] MEDS: Loratadine 10 MG Tablet PO (09:06)
[2023-02-09] MEDS: Acetaminophen 500 MG Tablet 1000 MG PO ×2 (09:06→18:13)
[2023-02-09] MEDS: 0.9% Saline Lock 10 ML Syringe IV (11:00)
[2023-02-09] MEDS: Ferrous Sulfate 325 MG Tablet PO ×2 (12:17→18:12)
[2023-02-09] MEDS: oxyCODONE 5 MG Tablet PO ×2 (13:12→21:47)
[2023-02-09 14:58] VITALS: BP 127/81; PULSE 89; RESP 16; TEMP 36.4; O2SAT 98
[2023-02-09] MEDS: tiZANidine HCl 2 MG Tablet 4 MG PO (21:45)
[2023-02-10] MEDS: Lisinopril 20 MG Tablet PO (05:53)
[2023-02-10] MEDS: Pantoprazole Sodium 40 MG Tablet PO (05:53)
[2023-02-10] MEDS: Acetaminophen 500 MG Tablet 1000 MG PO (06:00)
[2023-02-10] MEDS: Nystatin Powder 15gm Bottle 1 APPLIC TOPICAL (06:01)
[2023-02-10 07:00] VITALS: BP 168/85; PULSE 93; RESP 16; RESP 18; TEMP 36.9; O2SAT 99
[2023-02-10] MEDS: Ensure Plus High Protein 120 ML LIQUID PO (08:24)
--- NOTE | 2023-02-10 10:47 | CASEMGMT ---
Social Work BIMS () and PHQ-9 () completed for MDS assessment. 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
== END 2023-02-10 08:41 | disposition home or self-care (01) | DRG 950 ==
PROVIDERS: Admitting Provider Family Medicine Geriatric Medicine; PCP Family Medicine; Referring Provider Family Medicine Geriatric Medicine; Visit Provider Family Medicine Geriatric Medicine
DX: T84.54XD Infection and inflammatory reaction due to internal left knee prosthesis, subsequent encounter (principal); B35.4 Tinea corporis; D50.9 Iron deficiency anemia, unspecified; I25.10 Atherosclerotic heart disease of native coronary artery without angina pectoris; B96.5 Pseudomonas (aeruginosa) (mallei) (pseudomallei) as the cause of diseases classified elsewhere; M06.9 Rheumatoid arthritis, unspecified; E53.8 Deficiency of other specified B group vitamins; G47.33 Obstructive sleep apnea (adult) (pediatric); E55.9 Vitamin D deficiency, unspecified; K21.9 Gastro-esophageal reflux disease without esophagitis; M79.7 Fibromyalgia; E78.00 Pure hypercholesterolemia, unspecified; I10 Essential (primary) hypertension; J30.9 Allergic rhinitis, unspecified; B95.2 Enterococcus as the cause of diseases classified elsewhere; Z95.5 Presence of coronary angioplasty implant and graft; Z87.891 Personal history of nicotine dependence; Z79.82 Long term (current) use of aspirin; Z96.652 Presence of left artificial knee joint; Z79.899 Other long term (current) drug therapy; F32.A Depression, unspecified; M81.0 Age-related osteoporosis without current pathological fracture; Y79.2 Prosthetic and other implants, materials and accessory orthopedic devices associated with adverse incidents
CPT/HCPCS: 36415; 36569; 73610; 74018; 80048; 85014; 85018; 85025; 85652; 87811; 94667; 94668; 97110; 97112; 97116; 97161; 97166; 97530; 97535; 97802; J7050; A4216

== ENCOUNTER → 2023-02-10 | Outpatient (CLI) | payer MEDICARE, MEDICAID, SELFPAY ==
[2023-02-10 11:16] LABS: Erythrocyte Sedimentation Rate 26 mm/hr (0-30)
[2023-02-10 11:19] LABS: Absolute Lymphocyte Count 1.71 X10^3/uL (0.83-4.51); Absolute Neutrophil Count 6.9 X10^3/uL (2.0-7.7); Basophil# 0.06 X10^3/uL; Basophil% 0.6 % (0-1); Eosinophil# 0.34 X10^3/uL; Eosinophils% 3.5 % (0-5); Hematocrit 36.9 % (37-47); Hemoglobin 11.6 g/dL (12.0-15.0); Lymphocyte # 1.71 X10^3/ul (0.83-4.51); Lymphocyte % 17.6 % (19-41); Mean Corp Hgb Conc 31.4 g/dL (32-36); Mean Corpuscular Hgb 28.7 pg (27.0-32.0); Mean Corpuscular Volume 91.3 fL (81-99); Mean Platelet Vol. 9.4 fl (6.2-12.0); Monocyte# 0.65 X10^3/uL; Monocyte% 6.7 % (0-10); NRBC Flagged by Analyzer 0 % (0-5); Neutrophil # 6.88 X10^3/uL (2.7-7.7); Neutrophil % 70.7 % (47-70); Platelet Count 468 K/mm3 (150-450); RBC Distribution Width SD 47.1 fl (35.1-43.9); Red Blood Count 4.04 M/mm3 (4.2-5.4); White Blood Count 9.7 K/mm3 (4.4-11.0)
== END | disposition home or self-care (01) ==
PROVIDERS: PCP Family Medicine; Referring Provider Specialist; Visit Provider Specialist
DX: Z96.652 Presence of left artificial knee joint (principal)
CPT/HCPCS: 36415; 85025; 85652; 86140

== ENCOUNTER 2023-03-02 15:03 | Outpatient (CLI) | payer MEDICARE, MEDICAID, SELFPAY ==
[2023-02-25 16:36] LABS: Absolute Lymphocyte Count 2.69 X10^3/uL (0.83-4.51); Absolute Neutrophil Count 8.3 X10^3/uL (2.0-7.7); Basophil% 0.8 % (0-1); Eosinophil# 0.36 X10^3/uL; Eosinophils% 2.9 % (0-5); Hematocrit 40.1 % (37-47); Lymphocyte # 2.69 X10^3/ul (0.83-4.51); Lymphocyte % 21.6 % (19-41); Mean Corp Hgb Conc 32.4 g/dL (32-36); Mean Corpuscular Hgb 29.4 pg (27.0-32.0); Mean Corpuscular Volume 90.7 fL (81-99); Mean Platelet Vol. 9.5 fl (6.2-12.0); Monocyte# 0.86 X10^3/uL; Monocyte% 6.9 % (0-10); NRBC Flagged by Analyzer 0 % (0-5); Neutrophil # 8.29 X10^3/uL (2.7-7.7); Neutrophil % 66.4 % (47-70); Platelet Count 496 K/mm3 (150-450); RBC Distribution Width CV 13.2 % (11.6-14.6); RBC Distribution Width SD 44.1 fl (35.1-43.9); Red Blood Count 4.42 M/mm3 (4.2-5.4); White Blood Count 12.5 K/mm3 (4.4-11.0)
[2023-02-25 16:55] LABS: Erythrocyte Sedimentation Rate 28 mm/hr (0-30)
[2023-03-04 15:25] LABS: Magnesium 2.1 mg/dL (1.6-2.6)
[2023-03-04 16:26] LABS: Albumin, Serum 3.5 g/dL (3.2-5.0)
--- NOTE | 2023-03-15 17:36 | HP.PCM_ITS ---
History and Physical History and Physical? Patient Name: Marisol Stone : 1960 From:? JOSE J SNOW PA-C? DATE OF SURGERY:? 03/23/2023 SCHEDULED PROCEDURE:? Left knee Removal antibiotic spacer, total knee arthroplasty HISTORY OF PRESENT ILLNESS: Preoperative history and physical exam was performed on March 14, 2023.? This is a 63-year-old female who has extensive history of left knee surgery.? Patient recently by Dr. Otf Bethea underwent a left knee explant total knee replacement with placement of articulating antibiotic spacer on December 29, 2022.? Patient initially had her previous primary left total knee arthroplasty by Dr. Lalit Charles on June 26, 2021.? Patient had progressively worsening symptoms in which x-rays revealed evidence of loosening.? Patient had initial aspiration in which she had positive criteria for intra-articular white blood cell count, PM and percentages, positive alpha defense and increased CRP.? She had positive cultures for Enterococcus faecalis.? Patient postoperatively after the antibiotic spacer was placed on 6 weeks of IV ampicillin.? She was followed by infectious disease.? She did go to the transitional care unit postoperatively for recovery.? Patient has been partial weightbearing on the left lower extremity.? She has had recent aspiration by Dr. Otf Bethea which did not show any infection lab work.? Patient has medical history pertinent for rheumatoid arthritis, fibromyalgia, coronary artery disease, previous heart attack and stent placement, hypercholesterolemia, sleep apnea without use of CPAP, previous anemia.? While in the hospital patient utilized oxygen overnight due to her sleep apnea.? After discussion with Dr. Otf Bethea, the patient does wish to proceed with a left knee removal antibiotic spacer to total knee arthroplasty.? Patient currently denies any chest pain, shortness of breath, fevers chills.? Patient has had previous clearance in December [address] Graves.? There is been no change in medical history.? No recent chest pain or shortness of breath. REVIEW OF SYSTEMS: ROS: Const: Reports weight change, but denies change in appetite and fever. CV: Denies chest pain, heart murmur and irregular heartbeat. Resp: Denies cough, pneumonia, shortness of breath, tuberculosis and wheezing. GI: Reports diarrhea, but denies constipation, heartburn, nausea, rectal itching, bloody stools and vomiting. : Denies incontinence. Musculo: Reports gait disturbance, leg swelling, pain, trouble walking and weakness. Skin: Reports tattoo, but denies Raynaud's and history of shingles. Neuro: Reports dizziness but denies ambulatory dysfunction, numbness/tingling and tremor. Psych: Reports anxiety, insomnia and stress. Myles/Lymph: Reports anemia, bleeding/bruising tendency and past transfusion. Reviewed, no changes. PAST MEDICAL HISTORY: Advance Care Plan: No Advance Directives Effective Date: 05/14/2020 PMH: Medical Problems: Arthritis - Rheumatoid? Coronary Artery Disease (CAD), Depression, Fibromyalgia, Heart Attack, Hypercholesterolemia, Osteoporosis, Sleep Apnea Covid-19 Vaccinated - (12/11/2020) (01/08/2021) Borderline Anemic - (01/2022) Accidents: RT Ankle - (2018) Surgical Hx: Heart Stent - (2015) RT Total Knee Replacement - (12/01/2020) EDMAR @ [facility] LT Knee, Total Joint Replacement - (06/26/2021) Dr Juan Charles @ [facility] Left Knee Revision W/ Abx Placement - (12/29/2022) DR. BETHEA @ [facility]? Anesthesia Complications: None Assistive Devices: Glasses, Cane, Walker Reviewed, no changes. SOCIAL HISTORY: SH: Marital: Single.Occupation: Disabled - (2017).Work Status: Disabled.Hand Dominance: Right-handed. Personal Habits:? Cigarette Use: Former.Smokeless Tobacco: Never Used Smokeless Tobacco.E-Cigarette Use: Never used.Alcohol: Has consumed alcohol in the past.Drug Use: Medical Marijuana Card.Enjoy Exercising: Never Exercises. Reviewed, no changes. VITALS: Ht: 62 Wt: 199lb Wt k.266 BMI: 36.4 BP: 130/78 Pulse: 104 Resp: 18 T: 97.1 T: 36.2C Pain Level: 0 O2SatR: 98 ALLERGIES: No Known Drug Allergy? MEDICATIONS: Ferrous Sulfate 325 (65 Fe) MG take 1 tablet by mouth twice a day, Tizanidine HCL 4 mg 1 po qd at night, Vitamin D2 2000 Unit 1 po weekly, Tylenol Extra Strength 500 mg as needed, Allie Allergy 60 mg as needed, Lisinopril 20 mg 1 by mouth every day, Aspirin 81 mg once daily, Ensure Plus High Protein? 120 ml daily PRE-OP EXAM:? General appearance:NORMAL? ? ? Other: Eyes: Conjunctivae and lids: NORMAL? Pupils: ERR Ears, Nose, Mouth, and Throat: NORMAL? Other: Inspection of lips, teeth and gums: NORMAL? ?Other: Neck: Examination of neck: no masses noted. Respiratory: Assessment of respiratory effort: NORMAL? ?Other: ?Auscultation of lungs: clear to auscultation no wheezes, rhonchi or rales. Cardiovascular:? Auscultation of heart: regular rate and rhythm, no murmurs, gallops or rubs. PHYSICAL EXAMINATION: Patient is currently partial weightbearing.? Previous left knee incision is well-healed without any erythema.? Range of motion lacks 5 full extension to 90 flexion.? Sensation intact to light touch. IMPRESSION: 1.? Left knee antibiotic spacer 2.? Rheumatoid arthritis 3.? Coronary artery disease 4.? Previous heart attack and stent placement 5.? Depression 6.? Fibromyalgia 7.? Hypercholesterolemia 8.? Osteoporosis 9.? Sleep apnea without use of CPAP 10.? History of anemia PLAN: Dr. Otf Bethea did discuss and review with the patient all treatment options including surgical versus nonsurgical options.? Patient does wish to proceed with the above-stated procedure.? Potential risks, benefits, and complications of the procedure were discussed in detail including but not limited to , infection, nerve and blood vessel damage, persistent pain, numbness, tingling, paresthesias, blood clot, pulmonary embolism, and requirement for possible further surgery.? The patient expressed full understanding and has no further questions for the doctor.? Patient does agree to proceed with the above-stated procedure and has signed the surgery consent form. POST-OP MEDICATION PLAN: Pain Medications: We will avoid nonsteroidal anti-inflammatories postoperatively due to past history of cardiac disease.? Patient reports that she is not able to take nonsteroidal anti-inflammatories. DVT Prophylaxis:? Aspirin 81 mg twice daily for 4 weeks postoperatively.? Denies past history of DVT or pulmonary embolism This dictation was created using voice recognition software. Phonetic and/or grammatical errors may exist. ___? I have re-examined the patient.? There are no clinical changes since date of exam. ___? See progress notes for changes. ___? Dictated on admission Date: ? ? ?Time: Signature:
== END 2023-03-02 23:59 | disposition home or self-care (01) ==
LOC: PAT 04-05 15:03
PROVIDERS: Anesthesiology; PCP Family Medicine; Referring Provider Specialist; Visit Provider Specialist
DX: T84.54XA Infection and inflammatory reaction due to internal left knee prosthesis, initial encounter (principal); M25.462 Effusion, left knee; Z96.652 Presence of left artificial knee joint
CPT/HCPCS: 36415; 82040; 83735; 85025; 85652; 86140; 87081; J7120; J3475

== ENCOUNTER → 2023-03-04 | Outpatient (CLI) | payer MEDICARE, MEDICAID, SELFPAY ==
[2023-03-04 16:17] LABS: RBC /Synovial Fluid 0.109 10^6/uL (0); Synovial Fld Mononuclear WBC # 0.913 10^3/ul; Synovial Fld Mononuclear WBC % 61.7 %; Synovial Fld Polynuclear WBC # 0.566 10^3/uL; Synovial Fld Polynuclear WBC % 38.3 %
[2023-03-04 17:10] LABS: AUTO B FLUID DILUENT BKGD CT WBC <0.1 RBC <0.01 (W<.1,R<.01); Color / Synovial Fluid Red (Pale Yellow); Source / Synovial Fluid LFT KNEE
[2023-03-04 17:11] LABS: Appearance /Synovial Fluid Cloudy (CLEAR); Body Fluid QC Type(s) BF1Q; Lymph 10 %; Monocyte /Synovial Fluid 55 %; Neutrophil 35 % (0-25)
[2023-03-07 10:01] LABS: Pathologist Comment Reviewed
== END | disposition home or self-care (01) ==
LOC: LABSPEC 15:18
PROVIDERS: PCP Family Medicine; Referring Provider Specialist; Visit Provider Specialist
DX: T84.54XA Infection and inflammatory reaction due to internal left knee prosthesis, initial encounter (principal); M25.462 Effusion, left knee; X58.XXXA Exposure to other specified factors, initial encounter
CPT/HCPCS: 87015; 87070; 87075; 87101; 87116; 87205; 87206; 89050; 89051

== ENCOUNTER → 2023-03-24 | Outpatient (CLI) | payer MEDICARE, MEDICAID, SELFPAY ==
--- NOTE | 2023-03-24 14:30 | RAD_ITS ---
STUDY: X-RAY - ABDOMEN/PELVIS REASON FOR EXAM: Female, 63 years old. diarrhea. TECHNIQUE: AP supine and upright views of the abdomen and pelvis. COMPARISON: None. FINDINGS: Normal visualized lung bases. There is an unremarkable bowel gas pattern. There is no demonstrated free abdominal air. The visualized liver, spleen and kidneys are grossly normal in size and morphology. Status post bilateral tubal ligation. Normal visualized osseous structures. RAD/Abd Inc Decub and/or Erect IMPRESSION: Normal x-ray examination of the abdomen and pelvis. Electronically Signed: Kristofer Hansen MD at 21:58 EDT ,
[2023-03-24 18:07] LABS: Absolute Lymphocyte Count 2.22 X10^3/uL (0.83-4.51); Absolute Neutrophil Count 5.9 X10^3/uL (2.0-7.7); Basophil# 0.08 X10^3/uL; Basophil% 0.9 % (0-1); Eosinophil# 0.37 X10^3/uL; Hematocrit 42.7 % (37-47); Hemoglobin 13.6 g/dL (12.0-15.0); Lymphocyte # 2.22 X10^3/ul (0.83-4.51); Lymphocyte % 24.1 % (19-41); Mean Corp Hgb Conc 31.9 g/dL (32-36); Mean Corpuscular Hgb 29.2 pg (27.0-32.0); Mean Corpuscular Volume 91.6 fL (81-99); Mean Platelet Vol. 10.8 fl (6.2-12.0); Monocyte# 0.61 X10^3/uL; Monocyte% 6.6 % (0-10); NRBC Flagged by Analyzer 0 % (0-5); Neutrophil # 5.88 X10^3/uL (2.7-7.7); Neutrophil % 63.7 % (47-70); Platelet Count 390 K/mm3 (150-450); RBC Distribution Width CV 13.6 % (11.6-14.6); RBC Distribution Width SD 45.9 fl (35.1-43.9); Red Blood Count 4.66 M/mm3 (4.2-5.4); White Blood Count 9.2 K/mm3 (4.4-11.0)
[2023-03-24 18:20] LABS: Erythrocyte Sedimentation Rate 39 mm/hr (0-30)
[2023-03-24 18:27] LABS: ALB/GLOB Ratio 0.8 RATIO (0.9-2.4); AST(SGOT) 46 U/L (15-37); Alanine Aminotransfer ALT/SGPT 31 U/L (13-56); Albumin, Serum 3.7 g/dL (3.2-5.0); Alkaline Phosphatase 107 U/L (45-117); Anion Gap 6 (5-15); BUN 13 mg/dL (7-18); Calcium,Total 9.6 mg/dL (8.5-10.1); Chloride 103 mmol/L (98-107); Creatinine, Serum 0.77 mg/dL (0.55-1.02); EST Glomerular Filtration Rate 81 mL/min (>60); Est Glom Filt Rate - Afr Amer 98 mL/min (>60); Globulin 4.4 g/dL (2.2-4.2); Glucose 90 mg/dL (74-106); Potassium 4.5 mmol/L (3.5-5.1); Protein, Total 8.1 g/dL (6.4-8.2); Sodium Level 136 mmol/L (136-145); Thyroid Stim Hormone (TSH) 1.42 uIU/mL (0.358-3.74)
== END | disposition home or self-care (01) ==
PROVIDERS: PCP Family Medicine; Visit Provider Family Medicine
DX: R35.0 Frequency of micturition (principal); R19.7 Diarrhea, unspecified
CPT/HCPCS: 36415; 74019; 80053; 84443; 85025; 85652; 87077; 87086; 87088; 87186

== ENCOUNTER 2023-04-06 07:30 | Inpatient (IN) | payer MEDICARE, MEDICAID, SELFPAY ==
[2023-04-06] VITALS (18 sets, daily range): BP systolic 108–138; BP diastolic 49–86; PULSE 75–99; RESP 16–18; TEMP 35.9–36.6; O2SAT 92–99; BMI 37.0
--- NOTE | 2023-04-06 07:02 | OP.PCM_ITS ---
Report of Operation Date of Procedure: 04/06/23 Pre-Operative Diagnosis: Left knee periprosthetic joint infection, articulating antibiotic spacer Post-Operative Diagnosis: Left knee periprosthetic joint infection, articulating antibiotic spacer ready for reimplantation Surgery/Procedure Performed:: Revision left total knee replacement removal of entire femoral and tibial implants with revision of entire femoral and tibial implants Description of Surgical Findings:: Stable knee. No signs of active infection. Good patella tracking. Surgeon: Otf Bethea mold dresser: Leonel Dill Type of Anesthesia: Spinal Anesthesiologist: Paul Marcelo Special Medications: 2 g Ancef, 1 g TXA at incision, 1 g TXA closure, 10 mg Decadron, joint cocktail (5 mg Duramorph, 30 mL of 0.5% Ropivicaine, 1000 units of epinephrine, 30 mg of Toradol) Specimen's removed: 3 separate specimens were sent to microbiology Estimated Blood Loss (mL): 100 Fluids Replaced: 2000 ml Description of Procedure: Implants used: Femur: [place] triathlon size 2 total stabilized distal femoral component with 15 x 100 mm cemented stem, medial and lateral 10 mm distal augments medial 10 mm posterior augment, lateral 5 mm posterior augment Tibia: [place] triathlon universal tibial baseplate with 15 x 50 mm cemented stem. Size 8 tibial cone Poly: [place] triathlon X3 polyethylene total stabilized component 22 mm Patella: 32 mm asymmetric press-fit Sagar triathlon patella Brief history operative indications: 63-year-old female with previous total knee replacement with periprosthetic joint infection. Articulating spacer was placed and patient was placed on 6 weeks of IV antibiotics. After antibiotic holiday patient demonstrated evidence of infection eradication. We elected to proceed with reimplantation. Risk and benefits of the procedure were discussed the patient in the office including but not limited to blood loss, DVTs, PEs, nervous damage, infection, and risk of anesthesia including loss of life. Patient understands recurrent infections or superinfections can occur. Procedure: On the date of procedure patient's left lower extremity was marked in the preoperative area. The patient was then taken back to the operating room where the patient was placed on the table in the supine position. All bony prominences were identified a well-padded. Anesthesia assumed control of the C-spine and airway and remained controlled throughout the remainder of the procedure. A tourniquet was placed on the left upper thigh and the leg was prepped in a sterile fashion. The surgeon then scrubbed at this time. Upon reentering the room LEFt lower extremity was draped in a standard orthopedic fashion. A timeout was then called and everyone agreed upon the side, the site, the procedure to be performed, patient's identity and antibiotics given. An Esmarch bandage was used to exsanguinate the extremity and the tourniquet was placed up to 250 mmHg with the knee in flexion. A midline skin incision was made using the previous incision and extending it proximally and distally to identify normal tissue planes. Medial and lateral flaps were developed appropriate releases. The standard medial parapatellar art hrotomy was made and the patella was subluxed laterally. At this time an aggressive synovectomy was performed re-creating the medial gutter first, then the suprapatellar pouch than the lateral gutter. Once this was completed the knee was flexed up an osteotome was used to remove the tibial polyethylene. The remainder of the synovium was debrided. The standard deep MCL release was done and the patella scar pad was resected and lateral releases were performed. Next our attention was directed to the femur. Wear flexible osteotomes and TPS saw were used to break up the implant cement interface. This was done both medially and laterally. After this is adequately lucent bone tamp was used to remove the femur component from the end of the bone. This was done with minimal bone loss. At this time attention was now directed towards the proximal tibia. Possible osteotome and TPS saw were then used to break up the proximal tibia implant interface and stacked osteotomes were used to remove the tibial implant. This was done with minimal bone loss. Our attention was then turned to the tibia where the intramedullary canal was reamed to 19 and intramedullary tibial cutting guide was used to make the appropriate tibial cut 90 degrees from the mechanical axis. A drop lakshmi was then used to verify the cut. A size 1 tibial base plate was selected. the knee was flexed and the tibial component was pinned into place and the boss reamer was used to ream the proximal medullary canal. Proximal tibia was reamed for a size A cone the trial implant was impacted in its prepared position. Our attention was then turned back to the femur or the femur intramedullary canal was reamed to 16 mm and the intramedullary reamer was used as a cutting guide to make our distal femoral cut. Distal femoral was made using the standard Sagar medial epicondyle guiode to set the joint line. Cleanup cut was made we knew we would need a 10 augment medially, and 10 augment laterally. Using the previous femoral component and tibial component as a guide the size 2 4-in-1 femoral cutting guide was pinned into place in the appropriate rotation. Rotation was based on the medial epicondyles and tibial cut. Once this was pinned in place anterior cut, anterior chamfer cut, posterior cut and posterior chamfer cuts were made. Based on these cuts we knew we would need a 10 augment medially, and 5 augment laterally. The box cutting guide was then pinned into place and the box cut was made using a reciprocating saw. The appropriate trials were then placed on the femur and tibia. A trial polyethylene was trialed to ensure proper balancing and stability of the knee. Patella tracking, was then verified and corrected appropriately as needed. Our attention was then directed to the patella. The patella cut was made to clean up the patella and the patella lug holes were drilled for a 32 mm press- fit patella. Trial patella was placed. Patellar tracking was again checked and deemed appropriate. After trialing all trial implants were removed. Final components were verified and opened, 6 liters of normal saline were irrigated throughout the joint under low-pressure lavage. Then the cement was mixed in a vacuum. Sagar Simplex cement with tobramycin was used. The wound was copiously irrigated with normal saline. When the cement was ready the components were cemented into place starting with the tibia, femur with separate batches of cement.. The trial poly component was placed and the knee was placed in full extension. All excess cement was removed in the process. Once the cement had cured the tracking, alignment and balance were verified and a size 22 mm TS polyethylene component was placed. Once the final components were placed a 3-minute dilute Betadine lavage followed by 1 minute chlorhexidine lavage and finally the wound was copiously irrigated with normal saline solution and the remainder of the periarticular injection was given. The wound was closed in a layer paul fashion using #1 vicryl interrupted sutures for the arthrotomy, 2-0 interrupted Vicryl for the subcuticular layer and reynaldo for final skin closure. A sterile compressive dressing was then placed. The patient was then awakened from anesthesia, transferred to the [place] and transferred to the PACU for recovery. Post op plan DVT ppx: ASA 81mg BID, thigh high compression stockings Follow up: in office in 2 weeks for wound check PT: to start POD #0 at hospital, outpatient PT should be arranged. Patient will remain on doxycycline for 2 weeks postoperatively as we follow cultures. My physician senior court office assistant was a vital part of this case. He was important in appropriate retraction during the case, and protection of soft tissues during bony cuts. His intimate knowledge of the case and my steps aided in safe and expedient completion of the procedure as well as appropriate position of the leg during the case. He was also vital in assisting with closure under my direct supervision. Complications No intraoperative complications Admit VTE Documentation VTE Present on Admission: No VTE Mechan Device Prophylaxis: SCD's and Thigh High BRUCE Hose VTE Pharm Prophylaxis ordered?: Yes
[2023-04-06] MEDS: Lactated Ringers 1,000 ML 999 ML IV (08:00)
[2023-04-06] MEDS: Magnesium 1 GM over 15 mins IV (08:00)
[2023-04-06] MEDS: Celecoxib 200 MG Capsule 400 MG PO (08:23)
[2023-04-06] MEDS: Acetaminophen 500 MG Tablet 1000 MG PO ×2 (08:23→21:27)
[2023-04-06] MEDS: Gabapentin 600 MG Tablet PO (08:23)
[2023-04-06] MEDS: Lactated Ringers 1,000 ML 75 ML IV ×3 (09:01→18:12)
[2023-04-06] MEDS: Cefazolin 2 GM in 0.9% Normal Saline 100 ML IV (10:05)
[2023-04-06] MEDS: dexAMETHasone 10 MG/ML Vial IV (10:28)
[2023-04-06 10:34] LABS: Bedside Glucose 99 mg/dL (74-106)
[2023-04-06] MEDS: JPS (Morphine 10mg/ml) OPERA.SITE (12:40)
--- NOTE | 2023-04-06 13:53 | RAD_ITS ---
STUDY: X-RAY - LEFT KNEE REASON FOR EXAM: Female, 63 years old. Post op -- AP and Lateral x-ray of operative knee in PACU TECHNIQUE: 3 view(s) of the knee. COMPARISON: Comparison is made with prior study dated December 29, 2022. FINDINGS: The patient is status post total knee replacement of the restraining type. There is good alignment. Postoperative soft tissue changes. RAD/Knee 1 or 2 Views IMPRESSION: Status post total knee replacement of the constrained type. There is good positioning. Postoperative soft tissue changes. Electronically Signed: Raymon Marquez MD at 14:38 EDT ,
[2023-04-06] MEDS: Lactated Ringers 1,000 ML 125 ML IV (14:01)
[2023-04-06] MEDS: Ensure Surgery 237 ML LIQUID PO (17:03)
[2023-04-06] MEDS: Ferrous Sulfate 325 MG Tablet PO (17:05)
[2023-04-06] MEDS: Cefazolin 1 GM/50 ML BAG IV (18:08)
[2023-04-06] MEDS: oxyCODONE 5 MG Tablet PO ×2 (18:12→23:43)
--- NOTE | 2023-04-06 20:29 | HP.PCM.HOS_ITS ---
HPI - General General Date of Admission: 04/06/23 Date of Service: 04/06/23 Chief Complaint: Hospitalist consult for perioperative management of multiple, including coronary artery disease, sleep apnea, hypertension HPI Sukhjinder MORENO, is a 63 F who is admitted after elective left revision TKR after prosthetic joint infection, completed IV antibiotic as recommended by ID and antibiotic spacer [facility] Medical History Allergic rhinitis Ambulates with cane Anemia Anxiety Arthritis Atherosclerosis of coronary artery of [place] heart without angina pectoris Back pain Cardiology follow-up encounter Chronic headaches Debility Depression Essential hypertension Fibromyalgia Former smoker Gastroesophageal reflux disease History of non-ST elevation myocardial infarction (NSTEMI) (04/26/16) History of pain when walking Marijuana use Obesity ANN (obstructive sleep apnea) Osteoarthritis of both knees Rheumatoid arthritis Septic arthritis Shortness of breath on exertion Syncope Uses wheelchair Vitamin D deficiency Walker as ambulation aid Wears glasses Home Medications fexofenadine 60 mg tablet 60 mg PO DAILY PRN Allergies 06/11/20 [History Last Taken 06/25/21 08:00] acetaminophen 500 mg tablet 1,000 mg (2 x 500 mg) PO Q8 PRN Pain #90 tabs 05/27/21 [Rx Last Taken 06/25/21 15:00] ergocalciferol (vitamin D2) 1,250 mcg (50,000 unit) capsule 50,000 unit PO Mejia@1000 supplement 06/29/21 [History Last Taken Unknown] folic acid 1 mg tablet 1 mg PO DAILY supplement 12/22/22 [History Last Taken Unknown] lisinopril 10 mg tablet 20 mg PO DAILY blood pressure 12/22/22 [History Last Taken 04/06/23] duloxetine 30 mg capsule,delayed release 30 mg PO DAILY STOOL SOFTENER 30 days #30 caps 02/02/23 [Rx Last Taken Unknown] ferrous sulfate 325 mg (65 mg iron) tablet (FeroSul) 325 mg PO 1200,1700 LOW IRON 30 days #60 tabs 02/02/23 [Rx Last Taken Unknown] oxycodone 5 mg tablet 5 mg PO Q6H PRN PRN Pain Score 4-10 7 days #28 tabs 02/02/23 [Rx Last Taken Unknown] aspirin 81 mg tablet,delayed release (Adult Low Dose Aspirin) 81 mg PO DAILY BLOOD THIN 03/02/23 [History Last Taken 04/02/23] omeprazole 20 mg capsule,delayed release 20 mg PO DAILY GERD 03/02/23 [History Last Taken 04/06/23] tizanidine 4 mg tablet 4 mg PO QHS SLEEP 03/02/23 [History Last Taken Unknown] cefadroxil 500 mg capsule 500 mg PO TID UTI 04/01/23 [History Last Taken Unknown] Allergy/AdvReac Type Severity Reaction Status Date / Time No Known Allergies Allergy Verified 04/06/23 07:53 Family History Mother Hypertension CVA (cerebral vascular accident) Sister Cancer Father Heart disease Surgical History History of cardiac catheterization History of coronary artery stent placement (04/26/16) History of total left knee replacement (2020) History of total right knee replacement Hx of colonoscopy Status post incision and drainage Social History household members: children Smoking Status: Former smoker how long ago did patient quit smokin years ago alcohol intake: current alcohol intake frequency: holidays/special occasions only substance use type: does not use caffeine: Yes Type: carbonated beverages and coffee Vital Signs Vital Signs Vital Signs: 04/06/23 07:55 04/06/23 07:55 04/06/23 13:37 Temperature 97.4 F L 97.6 F L Temperature Source Temporal Temporal Pulse Rate 75 90 Pulse Strength Respiratory Rate 18 16 Respiratory Effort Respiratory Depth Respiratory Pattern Normal Normal Blood Pressure 138/82 H 118/49 L Blood Pressure Mean 100 72 Blood Pressure Source Monitor Monitor Blood Pressure Position Semi-Fowlers Semi-Fowlers Blood Pressure Location Right Arm Left Forearm Baseline BP 126/69 Pulse Ox 95 94 Oxygen Delivery Method Room Air Room Air Oxygen Flow Rate (L/min) 04/06/23 13:45 04/06/23 14:00 04/06/23 14:15 Temperature Temperature Source Pulse Rate 88 84 83 Pulse Strength Respiratory Rate 16 16 16 Respiratory Effort Respiratory Depth Respiratory Pattern Blood Pressure 118/49 L 136/81 H 130/75 H Blood Pressure Mean 72 99 93 Blood Pressure Source Monitor Monitor Monitor Blood Pressure Position Semi-Fowlers Semi-Fowlers Semi-Fowlers Blood Pressure Location Left Forearm Left Forearm Left Forearm Baseline BP 126/69 126/69 126/69 Pulse Ox 95 95 96 Oxygen Delivery Method Nasal Cannula Nasal Cannula Nasal Cannula Oxygen Flow Rate (L/min) 4 4 4 04/06/23 14:30 04/06/23 14:45 04/06/23 15:00 Temperature Temperature Source Pulse Rate 79 79 80 Pulse Strength Respiratory Rate 16 16 16 Respiratory Effort Respiratory Depth Respiratory Pattern Blood Pressure 126/85 H 125/85 H 131/74 H Blood Pressure Mean 98 98 93 Blood Pressure Source Monitor Monitor Monitor Blood Pressure Position Semi-Fowlers Semi-Fowlers Semi-Fowlers Blood Pressure Location Left Forearm Left Forearm Left Forearm Baseline BP 126/69 126/69 126/69 Pulse Ox 96 93 92 Oxygen Delivery Method Nasal Cannula Nasal Cannula Nasal Cannula Oxygen Flow Rate (L/min) 4 4 4 04/06/23 15:15 04/06/23 15:30 04/06/23 15:45 Temperature Temperature Source Pulse Rate 82 81 82 Pulse Strength Respiratory Rate 16 16 16 Respiratory Effort Respiratory Depth Respiratory Pattern Blood Pressure 119/72 119/86 H 127/81 H Blood Pressure Mean 87 97 96 Blood Pressure Source Monitor Monitor Monitor Blood Pressure Position Semi-Fowlers Semi-Fowlers Semi-Fowlers Blood Pressure Location Left Forearm Left Forearm Left Forearm Baseline BP 126/69 126/69 126/69 Pulse Ox 92 96 96 Oxygen Delivery Method Nasal Cannula Nasal Cannula Nasal Cannula Oxygen Flow Rate (L/min) 4 4 4 04/06/23 16:00 04/06/23 16:13 04/06/23 16:16 Temperature 96.7 F L Temperature Source Temporal Pulse Rate 83 91 Pulse Strength Respiratory Rate 16 16 Respiratory Effort Respiratory Depth Respiratory Pattern Normal Blood Pressure 125/77 H 116/65 Blood Pressure Mean 93 82 Blood Pressure Source Monitor Monitor Blood Pressure Position Semi-Fowlers Semi-Fowlers Blood Pressure Location Left Forearm Left Forearm Baseline BP 126/69 126/69 Pulse Ox 95 Oxygen Delivery Method Nasal Cannula Nasal Cannula Oxygen Flow Rate (L/min) 4 2 04/06/23 17:11 04/06/23 17:11 04/06/23 17:19 Temperature 98 F 98 F Temperature Source Oral Oral Pulse Rate 89 89 Pulse Strength Respiratory Rate 16 16 Respiratory Effort Normal Respiratory Depth Normal Respiratory Pattern Normal Blood Pressure 115/68 115/68 Blood Pressure Mean 83 83 Blood Pressure Source Monitor Blood Pressure Position Semi-Fowlers Blood Pressure Location Left Arm Baseline BP Pulse Ox 95 95 Oxygen Delivery Method Nasal Cannula Nasal Cannula Nasal Cannula Oxygen Flow Rate (L/min) 2 2 2 04/06/23 17:21 04/06/23 18:15 Temperature 97.7 F L Temperature Source Oral Pulse Rate 99 Pulse Strength Normal (2+) Respiratory Rate 16 Respiratory Effort Respiratory Depth Respiratory Pattern Blood Pressure 116/78 Blood Pressure Mean 90 Blood Pressure Source Monitor Blood Pressure Position Supine Blood Pressure Location Left Arm Baseline BP Pulse Ox 96 Oxygen Delivery Method Nasal Cannula Oxygen Flow Rate (L/min) 2 Weight Weight: 202 lb 13.204 oz Body Mass Index (BMI) 37.0 Results Lab / Micro Data Labs: Laboratory Results - last 24 hr 04/06/23 08:15: POC Glucose 99 Radiology Impression Knee X-Ray 04/06/23 13:53 IMPRESSION: Status post total knee replacement of the constrained type. There is good positioning. Postoperative soft tissue changes. Electronically Signed: Raymon Marquez MD at 14:38 EDT , Assessment & Plan Assessment/Plan PLAN: Plan Left knee periprosthetic joint infection -Postop day 0 from left knee explant of total knee replacement with placement of an articulating antibiotic spacer -Pain management per primary -Toe-touch weightbearing x2 weeks followed by partial weightbearing -Range of motion exercises to start at 2 weeks -Continue knee immobilizer with no flexion -ID has been consulted for antibiotic management -Initial cultures show Enterococcus faecalis -PT/OT consultation for gait training -Case management/social work for discharge planning to skilled facility--> patient would like to transition to TCU once medically stable -Will need pre-CERT as patient has a commercial Medicare product -12/30: ID evaluated. PICC line placed and 6 weeks of IV ampicillin ordered -12/31: On ampicillin. Growing Enterococcus faecalis. One cx with rare CNR non fermenters, ID following, final speciation pending. Nausea -Endorses feeling nauseous in the mornings but slightly worse this a.m. -Has Zofran as needed -Has reflux and does seem to be contributory, given her difficulty to tolerate p.o. due to the nausea will give IV Protonix -12/31: Improving. Change PPI to oral. Anemia - 9.1 on 12/31. Was 12/8 on 12/27 however baseline variable and often seems between 9-11. Is post op, no present active blood loss noted. May need outpt w/u CAD/HPL/HTN -SHILPI-LAD w/? 2.75 x 16 mm Promus Premier 04/26/2016 -Continue aspirin--> will be on 81 mg twice daily for DVT prophylaxis per orthopedic surgery recommendation -Continue lisinopril -Patient is not on statin due to intolerance -Clinically stable at this time Vitamin D deficiency -Continue ergocalciferol every Tuesday Seasonal allergies -Continue fexofenadine Rheumatoid arthritis -Patient has been on Biologics and methotrexate previously -Does not currently appear to be on anything -Pain medication per primary service GERD -Patient does not on any med occasion at this time Obesity -BMI 36 -Recommend weight loss -Complicates treatment, prognosis, outcomes DVT prophylaxis -81 mg aspirin p.o. twice daily per orthopedic surgery recommendations
--- NOTE | 2023-04-06 20:51 | CON.PCM.HO_ITS ---
Assessment & Plan Assessment/Plan (1) Status post total knee replacement, right: PLAN: Plan 1. 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 Bethea. Continue perioperative antibiotic IV cefazolin. PT and OT. Incentive spirometry. Bowel and bladder care.Aspirin 81 mg twice daily as DVT prophylaxis by Dr. Bethea 2. Coronary artery disease status post cardiac stent, hypertension and dyslipidemia: Patient on baby aspirin. Continue lisinopril. Not on statin due to intolerance. No acute or recent chest pain or anginal-like symptoms. 3. History of rheumatoid arthritis: No active issues. Patient was on biologic and methotrexate previously but currently he is not specific medication for rheumatoid arthritis. 4. Other comorbidities include seasonal allergies, GERD and morbid obesity and anemia of chronic disease: Patient BMI 37.1 kg/m?. Weight loss counseling done. Continue fexofenadine as needed. Patient is on ferrous sulfate and folic acid. 5. DVT prophylaxis -81 mg aspirin p.o. twice daily per orthopedic surgery HPI Consult Data Date of Consult: 04/06/23 HPI Narrative Reason for Consultation: Hospitalist consult for perioperative management of multiple, including cor HPI Narrative: FRANCIE MORENO, is a 63 F who is admitted after elective left revision TKR after prosthetic joint infection mostly due to Enterococcus faecalis had antibiotic spacer, completed 6 weeks of IV ampicillin as recommended by ID. Patient had left knee explant total knee replacement with placement of articulating antibiotic spacer on December 29, 2022. This time patient is admitted after revision of left TKR, removal of entire femoral and tibial implants with revision of entire femoral and tibial implants. Patient does not have chest pain pressure tightness or shortness of breath. She has chronic numbness of left foot. She has a small drain in her left operative region. Denies fever or chills. Patient voided urine spontaneously but is not passed flatus. [facility] Medical History Allergic rhinitis Ambulates with cane Anemia Anxiety Arthritis Atherosclerosis of coronary artery of [place] heart without angina pectoris Back pain Cardiology follow-up encounter Chronic headaches Debility Depression Essential hypertension Fibromyalgia Former smoker Gastroesophageal reflux disease History of non-ST elevation myocardial infarction (NSTEMI) (04/26/16) History of pain when walking Marijuana use Obesity ANN (obstructive sleep apnea) Osteoarthritis of both knees Rheumatoid arthritis Septic arthritis Shortness of breath on exertion Syncope Uses wheelchair Vitamin D deficiency Walker as ambulation aid Wears glasses Home Medications fexofenadine 60 mg tablet 60 mg PO DAILY PRN Allergies 06/11/20 [History Last Taken 06/25/21 08:00] acetaminophen 500 mg tablet 1,000 mg (2 x 500 mg) PO Q8 PRN Pain #90 tabs 05/27/21 [Rx Last Taken 06/25/21 15:00] ergocalciferol (vitamin D2) 1,250 mcg (50,000 unit) capsule 50,000 unit PO Mejia@1000 supplement 06/29/21 [History Last Taken Unknown] folic acid 1 mg tablet 1 mg PO DAILY supplement 12/22/22 [History Last Taken Unknown] lisinopril 10 mg tablet 20 mg PO DAILY blood pressure 12/22/22 [History Last Taken 04/06/23] duloxetine 30 mg capsule,delayed release 30 mg PO DAILY STOOL SOFTENER 30 days #30 caps 02/02/23 [Rx Last Taken Unknown] ferrous sulfate 325 mg (65 mg iron) tablet (FeroSul) 325 mg PO 1200,1700 LOW IRON 30 days #60 tabs 02/02/23 [Rx Last Taken Unknown] oxycodone 5 mg tablet 5 mg PO Q6H PRN PRN Pain Score 4-10 7 days #28 tabs 02/02/23 [Rx Last Taken Unknown] aspirin 81 mg tablet,delayed release (Adult Low Dose Aspirin) 81 mg PO DAILY BLOOD THIN 03/02/23 [History Last Taken 04/02/23] omeprazole 20 mg capsule,delayed release 20 mg PO DAILY GERD 03/02/23 [History Last Taken 04/06/23] tizanidine 4 mg tablet 4 mg PO QHS SLEEP 03/02/23 [History Last Taken Unknown] cefadroxil 500 mg capsule 500 mg PO TID UTI 04/01/23 [History Last Taken Unknown] Allergy/AdvReac Type Severity Reaction Status Date / Time No Known Allergies Allergy Verified 04/06/23 07:53 Family History Mother Hypertension CVA (cerebral vascular accident) Sister Cancer Father Heart disease Surgical History History of cardiac catheterization History of coronary artery stent placement (04/26/16) History of total left knee replacement (2020) History of total right knee replacement Hx of colonoscopy Status post incision and drainage Social History household members: children Smoking Status: Former smoker how long ago did patient quit smokin years ago alcohol intake: current alcohol intake frequency: holidays/special occasions only substance use type: does not use caffeine: Yes Type: carbonated beverages and coffee ROS ROS Narrative Constitutional: No acute systemic symptoms including headache. Mild chronic fatigue. No fever. HEENT: Reports systems reviewed and no addt'l complaints, except as documented Respiratory/Chest: No acute shortness of breath or respiratory distress or wheezing. CVS: History of coronary artery disease. No recent angina or chest pain or pressure. Gastrointestinal: Denies coffee ground emesis, hematemesis or vomiting Genitourinary: Voided urine spontaneously. Denies burning urination or new urinary tract symptoms Musculoskeletal: Left prosthetic joint infection and left TKR as described in HPI. Neurologic: Denies seizure-like symptoms. skin: Left TKR operative surgery. Endocrinology: Reports systems reviewed and no addt'l complaints, except as doc umented Hematologic/Lymphatic: Reports systems reviewed and no addt'l complaints, except as documented Rest 14 ROS are negative except as mentioned in HPI Physical Exam Narrative General: Alert, Oriented x3, Cooperative HEENT: Atraumatic, PERRLA, EOMI, Normocephalic Oral: Oral mucosa moist. No Gingival or Mucosal Lesions/ Ulcerations Neck: Supple, No JVD, Negative Carotid Bruits Lungs: Air entry diminished in bilateral lung bases. No crepitation/rhonchi Cardiovascular: Regular rate, Regular Rhythm, Normal S1, Normal S2, No murmurs Abdomen: Bowel Sounds Present, Soft, Non Tender, Non-Distended : No renal angle tenderness. No suprapubic tenderness. Extremities: No edema, Capillary Refill Less than 3 Seconds Skin: No rashes, No breakdown except operative surgery in left TKR Musculoskeletal: Revision left TKR, surgical dressing is dry. Small drain with sanguinous collection. No acute tenderness in other joints or extremities. Neurological: Cranial nerves II-XII grossly intact, DTR 2+/4. No acute focal neurological deficit. Psych/Mental Status: Normal Affect, Appropriate. Lab / Micro Data Labs: Laboratory Results - last 24 hr 04/06/23 08:15: POC Glucose 99 Radiology Impression Knee X-Ray 04/06/23 13:53 IMPRESSION: Status post total knee replacement of the constrained type. There is good positioning. Postoperative soft tissue changes. Electronically Signed: Raymon Marquez MD at 14:38 EDT , Charges/Coding Visit Charges Office Visits / Consults: [id number] IP Consult L4
[2023-04-06] MEDS: Senna/Docusate Sodium 1 Tablet 2 TABLET PO (21:26)
[2023-04-06] MEDS: Aspirin 81 MG TAB.CHEW PO (21:26)
[2023-04-06] MEDS: tiZANidine HCl 2 MG Tablet 4 MG PO (21:27)
[2023-04-07] MEDS: Cefazolin 1 GM/50 ML BAG IV (01:29)
[2023-04-07 01:32] VITALS: BP 115/76; PULSE 81; RESP 16; TEMP 36.6; O2SAT 95
[2023-04-07] MEDS: Acetaminophen 500 MG Tablet 1000 MG PO ×3 (05:46→20:35)
[2023-04-07 05:48] VITALS: BP 123/56; PULSE 67; RESP 16; TEMP 36.5; O2SAT 95
[2023-04-07 06:01] LABS: Hematocrit 32.5 % (37-47); Hemoglobin 10.4 g/dL (12.0-15.0); Mean Corpuscular Hgb 29.5 pg (27.0-32.0); Mean Corpuscular Volume 92.1 fL (81-99); Mean Platelet Vol. 9.5 fl (6.2-12.0); Platelet Count 320 K/mm3 (150-450); RBC Distribution Width CV 13.3 % (11.6-14.6); RBC Distribution Width SD 44.5 fl (35.1-43.9); Red Blood Count 3.53 M/mm3 (4.2-5.4); White Blood Count 11.9 K/mm3 (4.4-11.0)
[2023-04-07 06:40] LABS: Anion Gap 5 (5-15); BUN 20 mg/dL (7-18); BUN/Creat Ratio 23.1 RATIO (10-20); Calcium,Total 8.8 mg/dL (8.5-10.1); Chloride 105 mmol/L (98-107); Creatinine, Serum 0.87 mg/dL (0.55-1.02); EST Glomerular Filtration Rate 70 mL/min (>60); Est Glom Filt Rate - Afr Amer 85 mL/min (>60); Estimated Creatinine Clearance 51.67 ml/min; Glucose 117 mg/dL (74-106); Potassium 3.5 mmol/L (3.5-5.1); Sodium Level 137 mmol/L (136-145)
[2023-04-07] MEDS: Aspirin 81 MG TAB.CHEW PO ×2 (08:20→20:36)
[2023-04-07] MEDS: Senna/Docusate Sodium 1 Tablet 2 TABLET PO ×2 (08:21→20:36)
[2023-04-07] MEDS: Famotidine 20 MG Tablet PO (08:21)
[2023-04-07] MEDS: Pantoprazole Sodium 20 MG Tablet PO (08:21)
[2023-04-07] MEDS: Folic Acid 1 MG Tablet PO (08:21)
[2023-04-07] MEDS: Lisinopril 20 MG Tablet PO (08:22)
[2023-04-07] MEDS: oxyCODONE 5 MG Tablet PO ×3 (08:25→20:36)
[2023-04-07] MEDS: Ensure Surgery 237 ML LIQUID PO ×3 (08:25→17:03)
--- NOTE | 2023-04-07 08:49 | WOUNDNOTE ---
wound photo: left knee
--- NOTE | 2023-04-07 09:34 | CASEMGMT ---
MAKAYLA SHRESTHA Assessment: Face to Face with pt for initial transition planning/care coordination assessment. MAKAYLA SHRESTHA introduced self and role at [facility], pt voices understanding and consents to assessment. Pt is A/O x4 and answers all questions appropriately at this time. Pt lying in bed in no distress. PT finishing asking questions as well. Care providers, pharmacy, and demographics verified/updated. Admitting Dx: TK revision PCP:Ilene Specialists:Lake, ortho; Gene, jalen; Ant, GI; Schonfeld, eyes Preferred Pharmacy: [facility] Retail Insurance: [facility] Dual, LAURYN Prescription Benefit: yes LNOK: Heidyart Escobedo, dtr; Richelle Escobedo, dtr Living Arrangements: Pt lives with dtr who works assessment consultant and is not of assistance to pt. She lives in a two story home with 1 step to enter through the garage to the basement. Pt then has 12 steps to go to the kitchen and an additional flight of stairs to the shower. Pt does have a bathroom in the basement. Pt reports being I in ADL's at home, prepares own meals and does laundry. Transportation: Pt drives self and denies concerns with transportation. DME/HHC/SNF: Pt has a shower chair, w/c, FWW, cane and rollator at home. Pt has had [facility] HHC in the past and has been to [facility] TCU. Pt states she would like to go to [facility] TCU post surgery as she has no support at home. Therapy to eval and pt is aware that her insurance would Pt states no further concerns/needs. CM to follow. Advised pt to ask CM if any further question/concerns/needs arise, voices understanding. Pt Goal: [facility] TCU Plan: TBD pending therapy evals
[2023-04-07 10:06] VITALS: BP 112/57; PULSE 67; RESP 14; TEMP 36.7; O2SAT 98
--- NOTE | 2023-04-07 11:26 | PCM.PN.ORT ---
Subjective Subjective The patient was sitting in bed upon examination. Patient denies any chest pain, shortness of breath, dizziness, lightheadedness, nausea or vomiting, or calf pain. Pain is controlled on medications. Patient states she is very tired today as she had very little sleep last night. There were complications with the Prevena incisional wound VAC. Canister became full and nursing placed a another Prevena incisional wound VAC. Wound nurse contacted orthopedics this morning and due to continued drainage she was placed on a regular wound VAC. She does have pain in the postoperative knee. Cultures/microbiology is currently pending. She is on postoperative antibiotics. Patient is inquiring about postoperative discharge to the transitional care unit as she was there after her last antibiotic spacer. Objective Data Objective Data Vital Signs: Vital Signs Temp Pulse Resp BP Pulse Ox O2 Del Method O2 Flow Rate 98.1 F 67 14 112/57 L 98 Room Air 2 04/07/23 10:06 04/07/23 10:06 04/07/23 10:06 04/07/23 10:06 04/07/23 10:06 04/07/23 10:06 04/06/23 23:32 Oxygen Flow Rate (L/min) 2 Oxygen Delivery Method Room Air Weight: 92 kg Body Mass Index (BMI) 37.0 Intake & Output: Intake and Output for Last 24 Hours 04/05/23 04/06/23 04/07/23 23:59 23:59 23:59 Intake Total 4173.67 / 4373.67 1511.25 / 1511.25 Output Total 45 / 45 Balance 4173.67 / 4373.67 1466.25 / 1466.25 Lab / Micro Data 04/07/23 05:42 04/07/23 05:42 Labs: Laboratory Results - last 24 hr 04/07/23 05:42: WBC 11.9 H, RBC 3.53 L, Hgb 10.4 L, Hct 32.5 L, MCV 92.1, MCH 29.5, MCHC 32.0, RDW Std Deviation 44.5 H, RDW Coeff of Daphne 13.3, Plt Count 320, MPV 9.5, Sodium 137, Potassium 3.5, Chloride 105, Carbon Dioxide 27.0, Anion Gap 5, BUN 20 H, Creatinine 0.87, Estim Creat Clear Calc 51.67, Est GFR (MDRD) Af Amer 85, Est GFR (MDRD) Non-Af 70, BUN/Creatinine Ratio 23.1 H, Glucose 117 H, Calcium 8.8 Radiography Diagnostic Testing: Radiology Impression Knee X-Ray 04/06/23 13:53 IMPRESSION: Status post total knee replacement of the constrained type. There is good positioning. Postoperative soft tissue changes. Electronically Signed: Raymon Marquez MD at 14:38 EDT , Physical Exam Narrative Vital signs stable and afebrile. Wound VAC in place on the left knee with no drainage in the tubing or canister SCDs and BRUCE hose are in place bilaterally Patient is able to plantarflex and dorsiflex actively. Sensation is intact to light touch to saphenous, sural, superficial and deep peroneal, and tibial distribution. Negative Homans bilaterally, negative signs and symptoms of DVT. Const alert, oriented x3 and no apparent distress Assessment & Plan Assessment/Plan (1) Status post revision of total replacement of left knee: PLAN: 1. S/P revision left total knee replacement with removal of antibiotic spacer POD #1 2. Continue Pain Medications: Tylenol, meloxicam, oxycodone. Do not take any other nonsteroidal anti-inflammatories while using meloxicam/Mobic. 3. DVT Prophylaxis: Take 81 mg aspirin twice daily for 4 weeks postoperatively for DVT prophylaxis. Patient denies past history of DVT or pulmonary embolism 4. PT/OT: Weightbearing as tolerated with walker 5. H & H: 10.4/32.5, asymptomatic. Monitoring patient's hemoglobin and hematocrit with postoperative anemia without any intra operative complications. At this time no treatment is required. Estimated blood loss 100 mL with 2000 mL fluids. Will repeat lab work tomorrow 6. Reactive leukocytosis: Currently 11.9, afebrile. Patient did receive Decadron intraoperatively 7. Postoperative wound drainage: Patient initially had a Prevena incisional wound VAC in which canister became full on 2 separate occasions. Wound nurse was consulted and she was placed in a regular wound VAC. We will continue with this with changes on Tuesday and . 75 mmHg continuous. Dependent upon discharge planning will determine type of wound VAC on discharge. 8. Continue postoperative medical management per medicine 9. Encouraged Incentive Spirometry 10. Disposition: At this time patient will require postoperative physical therapy assessment and case management will be following. Appreciate recommendations from physical therapy. Patient will most likely require prison facility versus home health. Due to complexity of surgery patient will require additional night in the hospital. We are attempting with possible approval to go to prison facility at the transitional care unit. She will continue with above medications. We will continue to follow her cultures. Repeat lab work tomorrow.. I have reviewed the [place] Automated Rx Reporting System (OARRS) report for this patient for refill pattern and other prescriber involvement as part of the appropriate surveillance for the provision of acute and chronic controlled medications. The report was requested and reviewed on the date of this entry and was considered in the prescribing process. This dictation was created using voice recognition software. Phonetic and/or grammatical errors may exist.
[2023-04-07] MEDS: Ferrous Sulfate 325 MG Tablet PO ×2 (12:33→17:03)
[2023-04-07 14:07] VITALS: BP 130/48; PULSE 72; RESP 16; TEMP 36.9; O2SAT 96
[2023-04-07] MEDS: Doxycycline 100 MG CAPSULE PO ×2 (14:11→20:35)
[2023-04-07 14:18] VITALS: PULSE 70
--- NOTE | 2023-04-07 14:31 | PN.HOSP_ITS ---
Reason for Visit Reason for Visit: Diagnoses Presence of right artificial knee joint (04/06/23) Presence of left artificial knee joint (04/06/23) Subjective Subjective Had increased drainage from her knee last night. Changed devices and drainage h as slowed. Objective Data Objective Data Vital Signs: Vital Signs Temp Pulse Resp BP Pulse Ox O2 Del Method O2 Flow Rate 36.9 C 70 16 130/48 H 96 Room Air 2 04/07/23 14:07 04/07/23 14:18 04/07/23 14:07 04/07/23 14:07 04/07/23 14:07 04/07/23 14:18 04/06/23 23:32 Oxygen Flow Rate (L/min) 2 Oxygen Delivery Method Room Air Weight: 92 kg Body Mass Index (BMI) 37.0 Intake & Output: Intake and Output for Last 24 Hours 04/05/23 04/06/23 04/07/23 23:59 23:59 23:59 Intake Total 4173.67 / 4373.67 1598.50 / 1598.50 Output Total 45 / 45 Balance 4173.67 / 4373.67 1553.50 / 1553.50 Lab / Micro Data 04/07/23 05:42 04/07/23 05:42 Labs: Laboratory Results - last 24 hr 04/07/23 05:42: WBC 11.9 H, RBC 3.53 L, Hgb 10.4 L, Hct 32.5 L, MCV 92.1, MCH 29.5, MCHC 32.0, RDW Std Deviation 44.5 H, RDW Coeff of Daphne 13.3, Plt Count 320, MPV 9.5, Sodium 137, Potassium 3.5, Chloride 105, Carbon Dioxide 27.0, Anion Gap 5, BUN 20 H, Creatinine 0.87, Estim Creat Clear Calc 51.67, Est GFR (MDRD) Af Amer 85, Est GFR (MDRD) Non-Af 70, BUN/Creatinine Ratio 23.1 H, Glucose 117 H, Calcium 8.8 Micro: Microbiology 04/06/23 11:05 Tissue - Tibial Membrane Gram Stain - Final 04/06/23 11:00 Tissue - Femoral Membrane Gram Stain - Final 04/06/23 10:55 Tissue - Suprapatellar Pouch Gram Stain - Final Radiography Diagnostic Testing: Radiology Impression Knee X-Ray 04/06/23 13:53 IMPRESSION: Status post total knee replacement of the constrained type. There is good positioning. Postoperative soft tissue changes. Electronically Signed: Raymon Marquez MD at 14:38 EDT , Physical Exam HEENT head/scalp atraumatic Resp normal respiratory effort, no retractions, no use of accessory muscles and clear to auscultation bilaterally Cardio regular rate, regular rhythm, S1 normal heart sound and S2 normal heart sound GI normal to inspection, nondistended, normoactive bowel sounds and soft to palpation Extremity Extremity Narrative: right knee with wound vac in place. Assessment & Plan Assessment/Plan (1) Status post revision of total replacement of left knee: PLAN: Patient had explant of left total knee and placement of articulating antibiotic spacer on 12/29/22. mgmt per orthopaedics ASA 81mg BID for VTE prophylaxis. on doxycycline. PLAN: Plan Chronic conditions: * CAD: s/p stent. on ASA. Statin-intolerant. * RA: biologics held * GERD * anemia of CD: Hg down from 13.6. Monitor. Charges/Coding Visit Charges Inpatient E&M: 92216 Subs Hosp L2
--- NOTE | 2023-04-07 15:08 | CASEMGMT ---
Social Work SW received referral for SNF placement. SW met with pt and introduced self and role of SW. Pt confirms that she feels she needs short term SNF to improve strength prior to returning home. Pt also has a new wound vac. A list of SNF providers including quality and resource use data and consistent with the patient?s preferred geographic region, medical needs, and insurance network were provided from the [employer] Guide. Pt preferred provider is [facility]. Referral to Karly in TCU. SW will await determination of acceptance. Pt will need precert prior to discharge. Plan: TCU, pending acceptance and precert FLORENCE Paul
[2023-04-07 20:00] VITALS: BP 139/56; PULSE 72; RESP 18; TEMP 36.8; O2SAT 96
[2023-04-07] MEDS: tiZANidine HCl 2 MG Tablet 4 MG PO (20:34)
[2023-04-07] MEDS: Ketorolac 15 MG/ML Vial IV (20:41)
[2023-04-08] VITALS (9 sets, daily range): BP systolic 124–158; BP diastolic 65–93; PULSE 60–99; RESP 16–20; TEMP 36–37; O2SAT 80–100
[2023-04-08] MEDS: 0.9% Saline Lock 10 ML Syringe IV (01:16)
[2023-04-08] MEDS: Ondansetron 4 MG/2 ML Vial IV ×2 (01:16→12:23)
--- NOTE | 2023-04-08 02:00 | NURSING ---
pt on cont pulse ox. pt on ra and po drop to 80%. 02 at 2lnc appilied
[2023-04-08] MEDS: Acetaminophen 500 MG Tablet 1000 MG PO ×3 (04:55→22:02)
[2023-04-08] MEDS: oxyCODONE 5 MG Tablet PO ×3 (04:56→21:59)
[2023-04-08 06:16] LABS: Hematocrit 28.5 % (37-47); Hemoglobin 9.4 g/dL (12.0-15.0); Mean Corpuscular Hgb 29.7 pg (27.0-32.0); Mean Corpuscular Volume 90.2 fL (81-99); Mean Platelet Vol. 9.5 fl (6.2-12.0); Platelet Count 222 K/mm3 (150-450); RBC Distribution Width CV 13.7 % (11.6-14.6); RBC Distribution Width SD 44.7 fl (35.1-43.9); Red Blood Count 3.16 M/mm3 (4.2-5.4); White Blood Count 5.4 K/mm3 (4.4-11.0)
--- NOTE | 2023-04-08 06:59 | PN.ORTHO_ITS ---
Subjective Subjective The patient was sitting in bed upon examination. Patient denies any chest pain, shortness of breath, dizziness, lightheadedness, nausea or vomiting, or calf pain. Pain is controlled on medications. No adverse overnight events. Patient states she does have increased pain with weightbearing. Medications are help ful. She has been working with physical therapy and has walked 5 feet with contact-guard with pain increasing to 10/10. She has had wound VAC placed in which there has been no further drainage in the canister or tubing. Case management is currently involved with possible placement at transitional care unit. We are still waiting on approval. Objective Data Objective Data Vital Signs: Vital Signs Temp Pulse Resp BP Pulse Ox O2 Del Method O2 Flow Rate 97.2 F L 99 20 H 142/86 H 97 Room Air 2 04/08/23 04:45 04/08/23 04:45 04/08/23 04:45 04/08/23 04:45 04/08/23 04:45 04/08/23 04:45 04/08/23 04:06 Oxygen Flow Rate (L/min) 2 Oxygen Delivery Method Room Air Weight: 92 kg Body Mass Index (BMI) 37.0 Intake & Output: Intake and Output for Last 24 Hours 04/06/23 04/07/23 04/08/23 23:59 23:59 23:59 Intake Total 4173.67 / 4373.67 1598.50 / 1598.50 Output Total 45 / 45 Balance 4173.67 / 4373.67 1553.50 / 1553.50 Lab / Micro Data 04/08/23 05:40 04/07/23 05:42 Labs: Laboratory Results - last 24 hr 04/08/23 05:40: WBC 5.4, RBC 3.16 L, Hgb 9.4 L, Hct 28.5 L, MCV 90.2, MCH 29.7, MCHC 33.0, RDW Std Deviation 44.7 H, RDW Coeff of Daphne 13.7, Plt Count 222, MPV 9.5 Micro: Microbiology 04/06/23 11:05 Tissue - Tibial Membrane Gram Stain - Final 04/06/23 11:00 Tissue - Femoral Membrane Gram Stain - Final 04/06/23 10:55 Tissue - Suprapatellar Pouch Gram Stain - Final Physical Exam Narrative Vital signs stable and afebrile. Overnight patient did have drop in O2 saturation in which she was placed on nasal oxygen. She is currently at room air 97%. SCDs and BRUCE hose are in place bilaterally Patient is able to plantarflex and dorsiflex actively. Sensation is intact to light touch to saphenous, sural, superficial and deep peroneal, and tibial distribution. Wound VAC in place with no erythema around dressing. There is no drainage in canister or tubing. Negative Homans bilaterally, negative signs and symptoms of DVT. Const alert, oriented x3 and no apparent distress Assessment & Plan Assessment/Plan (1) Status post revision of total replacement of left knee: PLAN: 1. S/P revision left total knee replacement with removal of antibiotic spacer POD #2 2. Continue Pain Medications: Tylenol, meloxicam, oxycodone. Do not take any other nonsteroidal anti-inflammatories while using meloxicam/Mobic. Pain has been controlled on medications. 3. DVT Prophylaxis: Take 81 mg aspirin twice daily for 4 weeks postoperatively for DVT prophylaxis. Patient denies past history of DVT or pulmonary embolism 4. PT/OT: Weightbearing as tolerated with walker 5. H & H: 9.4/28.5, asymptomatic. Monitoring patient's hemoglobin and hematocr it with postoperative anemia without any intra operative complications. Patient is currently on ferrous sulfate and folic acid. She had similar drop in hemoglobin after her previous surgery. We will continue with oral medications at this time for the postoperative anemia. Vital signs have been stable. No concern for transfusion at this time. 6. Reactive leukocytosis: Resolved currently 5.4, afebrile. Patient did receive Decadron intraoperatively 7. Postoperative wound drainage: Patient initially had a Prevena incisional wound VAC in which canister became full on 2 separate occasions. Wound nurse was consulted and she was placed in a regular wound VAC. We will continue with this with changes on Tuesday and . 75 mmHg continuous. Dependent upon discharge planning will determine type of wound VAC on discharge. There has been no further drainage in canister or tubing 8. Continue postoperative medical management per medicine: Patient did have drop in O2 saturation overnight but does have history of sleep apnea. She is currently on room air doing well. 9. Currently on doxycycline for 2 weeks postoperatively. Microbiology wound and tissue specimens were reviewed in chart and there is currently no growth or organisms seen today. I discussed with the patient potential side effects of doxycycline including sensitivity to the sunlight and increased risk of skin bur n. Recommend patient take appropriate precautions. Also recommend patient to take probiotic while on the antibiotic. Patient voiced understanding agreement. 10. Encouraged Incentive Spirometry 11. Disposition: We are currently waiting on approval for discharge to transitional care unit. Patient has had extensive surgeries on her left knee. She is currently requiring a wound VAC due to postoperative drainage. She has worked with physical therapy and with contact-guard was only able to walk 5 feet with increased pain. I do feel patient would benefit from halfway facility upon discharge. We will continue to follow her hemoglobin. Continue with ferrous sulfate and folic acid at this time. Continue postoperative pain regimen. I have reviewed the [place] Automated Rx Reporting System (OARRS) report for this patient for refill pattern and other prescriber involvement as part of the appropriate surveillance for the provision of acute and chronic controlled medications. The report was requested and reviewed on the date of this entry and was considered in the prescribing process. This dictation was created using voice recognition software. Phonetic and/or grammatical errors may exist.
--- NOTE | 2023-04-08 08:07 | CASEMGMT ---
Addendum entered by Grisel Mayberry 04/08/23 08:47: Pt updated on acceptance to TCU and need for precert. Pt agreeable. FLORENCE Paul Original Note: Social Work TCU is able to accept pt and precert has been started. FLORENCE Paul
--- NOTE | 2023-04-08 08:24 | PCM.PN.HOSP ---
Reason for Visit Reason for Visit: Diagnoses Presence of right artificial knee joint (04/06/23) Presence of left artificial knee joint (04/06/23) Subjective Subjective Leg feeling worse today after working with therapy and sitting in chair and getting back into bed. Objective Data Objective Data Vital Signs: Vital Signs Temp Pulse Resp BP Pulse Ox O2 Del Method O2 Flow Rate 36.2 C L 99 20 H 142/86 H 97 Room Air 2 04/08/23 04:45 04/08/23 04:45 04/08/23 04:45 04/08/23 04:45 04/08/23 04:45 04/08/23 04:45 04/08/23 04:06 Oxygen Flow Rate (L/min) 2 Oxygen Delivery Method Room Air Weight: 92 kg Body Mass Index (BMI) 37.0 Intake & Output: Intake and Output for Last 24 Hours 04/06/23 04/07/23 04/08/23 23:59 23:59 23:59 Intake Total 4173.67 / 4373.67 1598.50 / 1598.50 Output Total 45 / 45 Balance 4173.67 / 4373.67 1553.50 / 1553.50 Lab / Micro Data 04/08/23 05:40 04/07/23 05:42 Labs: Laboratory Results - last 24 hr 04/08/23 05:40: WBC 5.4, RBC 3.16 L, Hgb 9.4 L, Hct 28.5 L, MCV 90.2, MCH 29.7, MCHC 33.0, RDW Std Deviation 44.7 H, RDW Coeff of Daphne 13.7, Plt Count 222, MPV 9.5 Micro: Microbiology 04/06/23 10:55 Tissue - Suprapatellar Pouch Gram Stain - Final 04/06/23 10:55 Tissue - Suprapatellar Pouch Anaerobic Culture - Preliminary No growth in 48 hours. 04/06/23 11:00 Tissue - Femoral Membrane Gram Stain - Final 04/06/23 11:00 Tissue - Femoral Membrane Anaerobic Culture - Preliminary No growth in 48 hours. 04/06/23 11:05 Tissue - Tibial Membrane Gram Stain - Final 04/06/23 11:05 Tissue - Tibial Membrane Anaerobic Culture - Preliminary No growth in 48 hours. Physical Exam Const alert Constitutional Narrative: uncomfortable. tearful. Cardio S1 normal heart sound Extremity Extremity Narrative: wound vac dressing in place. Assessment & Plan Assessment/Plan (1) Status post revision of total replacement of left knee: PLAN: Patient had explant of left total knee and placement of articulating antibiotic spacer on 12/29/22. mgmt per orthopaedics ASA 81mg BID for VTE prophylaxis. on doxycycline. PLAN: Plan Chronic conditions: CAD: s/p stent. on ASA. Statin-intolerant. RA: biologics held GERD anemia of CD: Hg down from 13.6. Monitor. Blood sugars have been stable. No history of DM. Will dc insulin Medically stable for discharge. Will follow peripherally over the weekend. Charges/Coding Visit Charges Inpatient E&M: 38154 Subs Hosp L1
[2023-04-08] MEDS: Meloxicam 7.5 MG Tablet PO ×2 (09:26→22:00)
[2023-04-08] MEDS: Pantoprazole Sodium 20 MG Tablet PO (09:26)
[2023-04-08] MEDS: Famotidine 20 MG Tablet PO (09:26)
[2023-04-08] MEDS: Doxycycline 100 MG CAPSULE PO ×2 (09:26→21:59)
[2023-04-08] MEDS: Aspirin 81 MG TAB.CHEW PO ×2 (09:26→22:00)
[2023-04-08] MEDS: Lisinopril 20 MG Tablet PO (09:26)
[2023-04-08] MEDS: Ensure Surgery 237 ML LIQUID PO (09:30)
--- NOTE | 2023-04-08 10:13 | CASEMGMT ---
Social Work SW received call from Roberta at [facility] insurance who is reviewing pt's case. Roberta requesting additional information as pt case will be forwarded to medical review. MERYL provided updated information regarding home situation, therapy notes and physician notes. MERYL will await determination of acceptance. Plan: TCU, pending acceptance [facility] Paul
[2023-04-08] MEDS: Ferrous Sulfate 325 MG Tablet PO ×2 (12:21→17:24)
[2023-04-08] MEDS: Lactated Ringers 1,000 ML 75 ML IV (12:21)
--- NOTE | 2023-04-08 15:11 | EKG12_ITS ---
Test Reason : Blood Pressure : / mmHG Vent. Rate : 084 BPM Atrial Rate : 084 BPM P-R Int : 156 ms QRS Dur : 082 ms QT Int : 384 ms P-R-T Axes : 038 013 047 degrees QTc Int : 453 ms Normal sinus rhythm Normal ECG When compared with ECG of 19-NOV-2020 12:57, No significant change was found Confirmed by RIVKA CRUZ, AIME ([id number]), editor producer CHRISTOPHER BRIONES ([id number]) on 04/12/2023 9:46:25 AM Referred By: Otf Bethea Confirmed By:AIME TINEO MD
--- NOTE | 2023-04-08 15:34 | NURSING ---
Pt complaining of chest pain. Dr. Kulkarni Notified. No new orders at this time.
--- NOTE | 2023-04-08 15:39 | CASEMGMT ---
Social Work SW spoke with TCU and precert has not yet been obtained. claudia Castaneda PA updated. Pt notified. Plan: [facility], pending acceptance FL[facility] Paul
[2023-04-08] MEDS: tiZANidine HCl 2 MG Tablet 4 MG PO (22:00)
[2023-04-09 02:47] VITALS: BP 123/56; PULSE 76; RESP 18; TEMP 36.8; O2SAT 95
[2023-04-09] MEDS: oxyCODONE 5 MG Tablet PO ×3 (02:50→19:42)
[2023-04-09] MEDS: Acetaminophen 500 MG Tablet 1000 MG PO ×3 (06:01→21:52)
[2023-04-09 06:21] LABS: Hematocrit 29.1 % (37-47); Hemoglobin 9.5 g/dL (12.0-15.0); Mean Corp Hgb Conc 32.6 g/dL (32-36); Mean Corpuscular Hgb 29.6 pg (27.0-32.0); Mean Corpuscular Volume 90.7 fL (81-99); Mean Platelet Vol. 9.6 fl (6.2-12.0); Platelet Count 236 K/mm3 (150-450); RBC Distribution Width CV 13.8 % (11.6-14.6); RBC Distribution Width SD 45.4 fl (35.1-43.9); Red Blood Count 3.21 M/mm3 (4.2-5.4); White Blood Count 5.6 K/mm3 (4.4-11.0)
[2023-04-09] MEDS: Aspirin 81 MG TAB.CHEW PO ×2 (08:58→21:53)
[2023-04-09] MEDS: Doxycycline 100 MG CAPSULE PO ×2 (08:58→21:52)
[2023-04-09] MEDS: Lisinopril 20 MG Tablet PO (08:58)
[2023-04-09] MEDS: Pantoprazole Sodium 20 MG Tablet PO (08:59)
[2023-04-09] MEDS: Famotidine 20 MG Tablet PO (08:59)
[2023-04-09] MEDS: Meloxicam 7.5 MG Tablet PO ×2 (08:59→21:52)
[2023-04-09 09:00] VITALS: BP 141/69; PULSE 76; RESP 16; TEMP 36.7; O2SAT 97
[2023-04-09] MEDS: Loratadine 10 MG Tablet PO (09:36)
--- NOTE | 2023-04-09 10:45 | PCM.PN.ORT ---
Subjective Subjective The patient was sitting in bed upon examination. Patient denies any chest pain, shortness of breath, dizziness, lightheadedness, nausea or vomiting, or calf pain. Pain is controlled on medications. No adverse overnight events. Patient continues to have pain that reaches 8/10 but upon taking medication is improved. She is in no apparent distress on examination today. We are currently waiting on approval from insurance for possible transitional care placement. Patient has continued to have the wound VAC. There is no drainage in the tubing or canister. Patient states she had increased frequency yesterday with using the restroom however she has no burning or discharge. We will continue to monitor. Patient's hemoglobin has stabilized and she will continue with ferrous sulfate. Cultures are currently without any growth. She continues on the doxycycline. Objective Data Objective Data Vital Signs: Vital Signs Temp Pulse Resp BP Pulse Ox O2 Del Method O2 Flow Rate 98.0 F 76 16 141/69 H 97 Room Air 2 04/09/23 09:00 04/09/23 09:00 04/09/23 09:00 04/09/23 09:00 04/09/23 09:00 04/09/23 09:00 04/08/23 04:06 Oxygen Flow Rate (L/min) 2 Oxygen Delivery Method Room Air Weight: 92 kg Body Mass Index (BMI) 37.0 Intake & Output: Intake and Output for Last 24 Hours 04/07/23 04/08/23 04/09/23 23:59 23:59 23:59 Intake Total 1598.50 / 1598.50 1401.25 / 1401.25 250 / 250 Output Total 45 / 45 Balance 1553.50 / 1553.50 1401.25 / 1401.25 250 / 250 Lab / Micro Data 04/09/23 05:20 04/07/23 05:42 Labs: Laboratory Results - last 24 hr 04/09/23 05:20: WBC 5.6, RBC 3.21 L, Hgb 9.5 L, Hct 29.1 L, MCV 90.7, MCH 29.6, MCHC 32.6, RDW Std Deviation 45.4 H, RDW Coeff of Daphne 13.8, Plt Count 236, MPV 9.6 Micro: Microbiology 04/06/23 11:05 Tissue - Tibial Membrane Gram Stain - Final 04/06/23 11:05 Tissue - Tibial Membrane Wound Culture - Final No growth aerobically. 04/06/23 11:05 Tissue - Tibial Membrane Anaerobic Culture - Preliminary No growth in 48 hours. 04/06/23 11:00 Tissue - Femoral Membrane Gram Stain - Final 04/06/23 11:00 Tissue - Femoral Membrane Wound Culture - Final No growth aerobically. 04/06/23 11:00 Tissue - Femoral Membrane Anaerobic Culture - Preliminary No growth in 48 hours. 04/06/23 10:55 Tissue - Suprapatellar Pouch Gram Stain - Final 04/06/23 10:55 Tissue - Suprapatellar Pouch Wound Culture - Final No growth aerobically. 04/06/23 10:55 Tissue - Suprapatellar Pouch Anaerobic Culture - Preliminary No growth in 48 hours. Physical Exam Narrative Vital signs stable and afebrile. SCDs and BRUCE hose are in place bilaterally Patient is able to plantarflex and dorsiflex actively. Sensation is intact to light touch to saphenous, sural, superficial and deep peroneal, and tibial distribution. Wound VAC in place with no drainage and tubing or canister. There is minimal bloody drainage around the foam dressing distally. Negative Homans bilaterally, negative signs and symptoms of DVT. Const alert, oriented x3 and no apparent distress Assessment & Plan Assessment/Plan (1) Status post revision of total replacement of left knee: PLAN: 1. S/P revision left total knee replacement with removal of antibiotic spacer POD #3 2. Continue Pain Medications: Tylenol, meloxicam, oxycodone. Do not take any other nonsteroidal anti-inflammatories while using meloxicam/Mobic. Pain has been controlled on medications. 3. DVT Prophylaxis: Take 81 mg aspirin twice daily for 4 weeks postoperatively for DVT prophylaxis. Patient denies past history of DVT or pulmonary embolism 4. PT/OT: Weightbearing as tolerated with walker 5. H & H: 9.5/29.1, asymptomatic. Patient's hemoglobin has stabilized and actually slightly improved. Monitoring patient's hemoglobin and hematocrit with postoperative anemia without any intra operative complications. Patient is currently on ferrous sulfate and folic acid. She had similar drop in hemoglobin after her previous surgery. We will continue with oral medications at this time for the postoperative anemia. Vital signs have been stable. No concern for transfusion at this time. 6. Reactive leukocytosis: Resolved currently 5.6, afebrile. Patient did receive Decadron intraoperatively 7. Postoperative wound drainage: Patient initially had a Prevena incisional wound VAC in which canister became full on 2 separate occasions. Wound nurse was consulted and she was placed in a regular wound VAC. We will continue with this with changes on Tuesday and . 75 mmHg continuous. Dependent upon discharge planning will determine type of wound VAC on discharge. There has been no further drainage in canister or tubing. 8. Continue postoperative medical management per medicine: O2 saturation has been stable on room air 9. Currently on doxycycline for 2 weeks postoperatively. Microbiology wound and tissue specimens were reviewed in chart and there is currently no growth or organisms seen today. I discussed with the patient potential side effects of doxycycline including sensitivity to the sunlight and increased risk of skin burn. Recommend patient take appropriate precautions. Also recommend patient to take probiotic while on the antibiotic. Patient voiced understanding agreement. 10. Encouraged Incentive Spirometry 11. Disposition: We are currently waiting on approval for discharge to transitional care unit. Patient has had extensive surgeries on her left knee. Patient also has 2 flights of stairs to attend to at home. She is in the basement. She is currently requiring a wound VAC due to postoperative drainage. She has worked with physical therapy and with contact-guard was walking 80 feet yesterday with increased pain. I do feel patient would benefit from snf facility upon discharge. We will continue to follow her hemoglobin. Continue with ferrous sulfate and folic acid at this time. Continue postoperative pain regimen. We will continue to monitor the wound VAC. Dressing change will occur on Tuesday by wound nurse. I have reviewed the [place] Automated Rx Reporting System (OARRS) report for this patient for refill pattern and other prescriber involvement as part of the appropriate surveillance for the provision of acute and chronic controlled medications. The report was requested and reviewed on the date of this entry and was considered in the prescribing process. This dictation was created using voice recognition software. Phonetic and/or grammatical errors may exist.
[2023-04-09] MEDS: Ferrous Sulfate 325 MG Tablet PO ×2 (12:59→16:27)
[2023-04-09 15:00] VITALS: BP 138/66; PULSE 80; RESP 16; TEMP 36.6; O2SAT 98
[2023-04-09 20:00] VITALS: BP 139/75; PULSE 97; RESP 18; TEMP 36.8; O2SAT 95
[2023-04-09] MEDS: tiZANidine HCl 2 MG Tablet 4 MG PO (21:52)
[2023-04-09] MEDS: Senna/Docusate Sodium 1 Tablet 2 TABLET PO (21:53)
[2023-04-10] MEDS: oxyCODONE 5 MG Tablet PO ×3 (04:08→21:24)
[2023-04-10 04:12] VITALS: BP 149/83; PULSE 80; RESP 18; TEMP 36.6; O2SAT 97
[2023-04-10] MEDS: Acetaminophen 500 MG Tablet 1000 MG PO ×3 (05:49→21:24)
[2023-04-10 09:00] VITALS: PULSE 86; RESP 18; O2SAT 98
[2023-04-10 10:00] VITALS: BP 151/81; PULSE 86; RESP 18; TEMP 36.6; O2SAT 98
[2023-04-10] MEDS: Lisinopril 20 MG Tablet PO (11:21)
[2023-04-10] MEDS: Folic Acid 1 MG Tablet PO (11:21)
[2023-04-10] MEDS: Aspirin 81 MG TAB.CHEW PO ×2 (11:21→21:23)
[2023-04-10] MEDS: Pantoprazole Sodium 20 MG Tablet PO (11:21)
[2023-04-10] MEDS: Meloxicam 7.5 MG Tablet PO ×2 (11:21→21:24)
[2023-04-10] MEDS: Famotidine 20 MG Tablet PO (11:21)
[2023-04-10] MEDS: Doxycycline 100 MG CAPSULE PO ×2 (11:21→21:24)
[2023-04-10] MEDS: Loratadine 10 MG Tablet PO (11:27)
[2023-04-10] MEDS: Ondansetron 8 MG Tablet PO (12:56)
[2023-04-10] MEDS: Ferrous Sulfate 325 MG Tablet PO ×2 (12:56→16:52)
[2023-04-10 15:00] VITALS: PULSE 91; O2SAT 98
[2023-04-10 16:00] VITALS: BP 147/80; PULSE 91; RESP 18; TEMP 36.6; O2SAT 98
--- NOTE | 2023-04-10 16:06 | PN.ORTHO_ITS ---
Subjective Subjective 63-year-old female status post articulating antibiotic spacer remover and revision left total knee replacement presents today resting in bed patient was sleeping upon my arrival. I did awaken the patient she reported being comfortable. Therapy note states she is showing improvement. 150 feet x 2 today. She reports working with stairs in therapy. One of the biggest hurdles to discharge home is the patient has 2 flights of stairs to navigate her home from her bedroom to the bathroom. Her vital signs have been stable despite a good drop in hemoglobin directly after surgery. She is awaiting approval to be discharged to transitional care unit. She is seen further recovery over the weekend. We will determine final disposition tomorrow after positioning insurance. Objective Data Objective Data Vital Signs: Vital Signs Temp Pulse Resp BP Pulse Ox O2 Del Method O2 Flow Rate 98 F 86 18 151/81 H 98 Room Air 2 04/10/23 10:00 04/10/23 10:00 04/10/23 10:00 04/10/23 10:00 04/10/23 10:00 04/10/23 10:00 04/08/23 04:06 Oxygen Flow Rate (L/min) 2 Oxygen Delivery Method Room Air Weight: 202 lb 13.204 oz Body Mass Index (BMI) 37.0 Intake & Output: Intake and Output for Last 24 Hours 04/08/23 04/09/23 04/10/23 23:59 23:59 23:59 Intake Total 1401.25 / 1401.25 1000 / 1000 800 / 800 Balance 1401.25 / 1401.25 1000 / 1000 800 / 800 Lab / Micro Data Attestation: I reviewed the patient's lab results. 04/09/23 05:20 04/07/23 05:42 Micro: Microbiology 04/06/23 11:05 Tissue - Tibial Membrane Gram Stain - Final 04/06/23 11:05 Tissue - Tibial Membrane Wound Culture - Final No growth aerobically. 04/06/23 11:05 Tissue - Tibial Membrane Anaerobic Culture - Preliminary No growth in 48 hours. 04/06/23 11:00 Tissue - Femoral Membrane Gram Stain - Final 04/06/23 11:00 Tissue - Femoral Membrane Wound Culture - Final No growth aerobically. 04/06/23 11:00 Tissue - Femoral Membrane Anaerobic Culture - Preliminary No growth in 48 hours. 04/06/23 10:55 Tissue - Suprapatellar Pouch Gram Stain - Final 04/06/23 10:55 Tissue - Suprapatellar Pouch Wound Culture - Final No growth aerobically. 04/06/23 10:55 Tissue - Suprapatellar Pouch Anaerobic Culture - Preliminary No growth in 48 hours. Radiography Diagnostic Testing: Postoperative x-rays of the left knee were reviewed showing stable well aligned condylar constrained knee replacement. Physical Exam Const alert, oriented x3 and no apparent distress Extremity Extremity Narrative: Left lower extremity: Wound VAC dressing is clean dry and intact. There is no fluid in the container or tubing. Patient able to flex knee comfortably to 90 degrees with heel slide in bed Sensations intact to light touch saphenous, sural, superficial peroneal, deep peroneal, and tibial distributions Motors intact EHL, DF, PF calves are soft and supple Assessment & Plan Assessment/Plan (1) Status post revision of total replacement of left knee: PLAN: 1. S/P revision left total knee replacement with removal of antibiotic spacer POD #4 2. Continue Pain Medications: Tylenol, meloxicam, oxycodone. Do not take any other nonsteroidal anti-inflammatories while using meloxicam/Mobic. Pain has been controlled on medications. 3. DVT Prophylaxis: Take 81 mg aspirin twice daily for 4 weeks postoperatively for DVT prophylaxis. Patient denies past history of DVT or pulmonary embolism 4. PT/OT: Weightbearing as tolerated with walker 5. H & H: 9.5/29.1, asymptomatic. Vitals are stable. Remain on ferrous sulfate and folic acid. We will recheck labs tomorrow. 6. Reactive leukocytosis: Resolved 7. Postoperative wound drainage: Patient's wound VAC has been without drainage since being placed. At this point I would consider a disposable wound VAC upon discharge as an appropriate plan. 8. Continue postoperative medical management per medicine: O2 saturation has been stable on room air 9. Currently on doxycycline for 2 weeks postoperatively. Microbiology wound and tissue specimens were reviewed in chart and there is currently no growth or organisms seen today. Potential side effects of doxycycline including sensitivity to the sunlight and increased risk of skin burn have been discussed with the patient. Recommend patient take appropriate precautions. Also re commend patient to take probiotic while on the antibiotic. Patient voiced understanding agreement. 10. Encouraged Incentive Spirometry 11. Disposition: We are currently waiting on approval for discharge to transitional care unit. Patient has had extensive surgeries on her left knee. Patient also has 2 flights of stairs to attend to at home. She is in the basement. If she remains in a skilled facility incisional wound VAC would be appropriate. If she is discharged home can likely be discharged with a disposable wound VAC. She has worked with physical therapy and Occupational Therapy this weekend. Yesterday patient remained guarded. Today patient was able to walk 115 feet and reports tolerating the stairs. I do feel patient would benefit from long term facility upon discharge she continues to have discomfort with therapy and also has 2 flights of stairs at home to navigate. We will continue to follow her hemoglobin. Continue with ferrous sulfate and folic acid at this time. Continue postoperative pain regimen. We will continue to monitor the wound VAC. Dressing change will occur on Tuesday by wound nurse. [facility] Office: This dictation was created using voice recognition software. Phonetic and/or grammatical errors may exist.
[2023-04-10 21:19] VITALS: BP 129/80; PULSE 77; RESP 16; TEMP 36.8; O2SAT 94
[2023-04-10] MEDS: tiZANidine HCl 2 MG Tablet 4 MG PO (21:23)
[2023-04-11 04:26] VITALS: BP 122/87; PULSE 58; RESP 16; TEMP 36.2; O2SAT 100
[2023-04-11 04:30] VITALS: BP 122/87; PULSE 58; RESP 16; TEMP 36.2; O2SAT 100
[2023-04-11] MEDS: oxyCODONE 5 MG Tablet PO ×3 (06:02→17:25)
[2023-04-11] MEDS: Acetaminophen 500 MG Tablet 1000 MG PO ×2 (06:02→14:46)
[2023-04-11 08:10] LABS: Absolute Neutrophil Count 3.3 X10^3/uL (2.0-7.7); Basophil# 0.05 X10^3/uL; Basophil% 0.9 % (0-1); Eosinophil# 0.32 X10^3/uL; Eosinophils% 5.7 % (0-5); Hemoglobin 9.8 g/dL (12.0-15.0); Lymphocyte % 26.6 % (19-41); Mean Corp Hgb Conc 32.7 g/dL (32-36); Mean Corpuscular Hgb 29.5 pg (27.0-32.0); Mean Corpuscular Volume 90.4 fL (81-99); Mean Platelet Vol. 9.1 fl (6.2-12.0); Monocyte% 7.1 % (0-10); NRBC Flagged by Analyzer 0 % (0-5); Neutrophil # 3.31 X10^3/uL (2.7-7.7); Neutrophil % 58.6 % (47-70); Platelet Count 308 K/mm3 (150-450); RBC Distribution Width CV 13.6 % (11.6-14.6); RBC Distribution Width SD 44.1 fl (35.1-43.9); Red Blood Count 3.32 M/mm3 (4.2-5.4); White Blood Count 5.6 K/mm3 (4.4-11.0)
[2023-04-11] MEDS: Ensure Surgery 237 ML LIQUID PO (08:12)
[2023-04-11 08:13] VITALS: BP 106/50; PULSE 66; RESP 18; TEMP 36.5; O2SAT 95
[2023-04-11 08:28] LABS: Anion Gap 3 (5-15); BUN 14 mg/dL (7-18); BUN/Creat Ratio 19.4 RATIO (10-20); Calcium,Total 8.7 mg/dL (8.5-10.1); Chloride 105 mmol/L (98-107); Creatinine, Serum 0.72 mg/dL (0.55-1.02); EST Glomerular Filtration Rate 87 mL/min (>60); Est Glom Filt Rate - Afr Amer 105 mL/min (>60); Estimated Creatinine Clearance 62.43 ml/min; Glucose 96 mg/dL (74-106); Potassium 3.8 mmol/L (3.5-5.1); Sodium Level 140 mmol/L (136-145)
--- NOTE | 2023-04-11 08:59 | CASEMGMT ---
Addendum entered by Grisel Mayberry 04/11/23 10:25: TCU updated that peer to peer will not be completed. FLORENCE Paul Addendum entered by Grisel Mayberry 04/11/23 10:24: Social Work MARIVEL Castaneda and Dr. Bethea feel pt can return home and peer to peer will not be completed. SW updated pt and she is agreeable to return home. A list of home health providers including quality and resource use data and consistent with the patient?s preferred geographic region, medical needs, and insurance network were provided from the [employer] Guide. Pt prefers [facility]. alexandria Hearn assistant to the director updated and requested referral be made. FLORENCE Paul Original Note: [employer] has issued a Peer to Peer for pt. Peer to Peer must be completed by 1230 today. option 5. Message left with MARIVEL Castaneda. Awaiting return call. SW met with pt and updated and pt states she prefers to go to TCU but feels she can return home is insurance denies TCU stay. SW inquired about home health or outpt PT. Pt denies both stating she prefers to go at her own pace and has all of the exercises at home. MERYL will continue to follow for d/c planning. FLORENCE Ibrahim
--- NOTE | 2023-04-11 09:46 | CASEMGMT ---
Discharge Planning HH list created and sent to SW. Nadiya Pereira, Discharge Planning Asst.
[2023-04-11 10:11] VITALS: O2SAT 91
[2023-04-11] MEDS: Folic Acid 1 MG Tablet PO (10:12)
[2023-04-11] MEDS: Aspirin 81 MG TAB.CHEW PO (10:13)
[2023-04-11] MEDS: Doxycycline 100 MG CAPSULE PO (10:13)
[2023-04-11] MEDS: Famotidine 20 MG Tablet PO (10:13)
[2023-04-11] MEDS: Meloxicam 7.5 MG Tablet PO (10:13)
[2023-04-11] MEDS: Lisinopril 20 MG Tablet PO (10:14)
[2023-04-11] MEDS: Pantoprazole Sodium 20 MG Tablet PO (10:14)
[2023-04-11] MEDS: Loratadine 10 MG Tablet PO (10:16)
--- NOTE | 2023-04-11 10:32 | CASEMGMT ---
Discharge Planning Referral made to [facility]. Nadiya Pereira, Discharge Planning Asst.
--- NOTE | 2023-04-11 10:50 | CASEMGMT ---
RN CM: This RN CM met with pt at chair side. Informed pt that [facility] is unable to accept pt for HH services. Pt's second preference is [facility]. AGUSTÍN Hearn Income Tax Consultant notified to send referral. Les Subramanian RN CM
--- NOTE | 2023-04-11 10:59 | CASEMGMT ---
Discharge Planning Asst. [facility] declined d/t not being a provider for patients specific [facility] plan. Referral sent to [facility] via [facility]. Nadiya Pereira, Discharge Planning Asst.
--- NOTE | 2023-04-11 11:30 | PCM.PN.ORT ---
Subjective Subjective The patient was sitting in bed upon examination. Patient denies any chest pain, shortness of breath, dizziness, lightheadedness, nausea or vomiting, or calf pain. Pain is controlled on medications. No adverse overnight events. Patient has been doing well this morning. She walked 110 feet with physical therapy. Her pain is being controlled. She did not get approval for transitional care unit. Case management is currently involved setting patient up for home health physical therapy. Wound VAC was removed today as there has been no output. Incision is healing very well with no evidence of any drainage. No erythema. Cultures have been negative and patient has continued on the doxycycline. Her hemoglobin has been trending upward. She has been on folic acid and ferrous sulfate. Objective Data Objective Data Vital Signs: Vital Signs Temp Pulse Resp BP Pulse Ox O2 Del Method O2 Flow Rate 97.7 F L 66 18 106/50 L 95 Room Air 2 04/11/23 08:13 04/11/23 08:13 04/11/23 08:13 04/11/23 08:13 04/11/23 08:13 04/11/23 08:17 04/11/23 04:30 Oxygen Flow Rate (L/min) 2 Oxygen Delivery Method Room Air Weight: 92 kg Body Mass Index (BMI) 37.0 Intake & Output: Intake and Output for Last 24 Hours 04/09/23 04/10/23 04/11/23 23:59 23:59 23:59 Intake Total 1000 / 1000 1200 / 1200 Balance 1000 / 1000 1200 / 1200 Lab / Micro Data 04/11/23 07:55 04/11/23 07:55 Labs: Laboratory Results - last 24 hr 04/11/23 07:55: WBC 5.6, RBC 3.32 L, Hgb 9.8 L, Hct 30.0 L, MCV 90.4, MCH 29.5, MCHC 32.7, RDW Std Deviation 44.1 H, RDW Coeff of Daphne 13.6, Plt Count 308, MPV 9.1, Immature Gran % (Auto) 1.100 H, Neut % (Auto) 58.6, Lymph % (Auto) 26.6, [place] % (Auto) 7.1, Eos % (Auto) 5.7 H, Baso % (Auto) 0.9, Absolute Neuts (auto) 3.3, Absolute Lymphs (auto) 1.50, Nucleated RBC % 0, Sodium 140, Potassium 3.8, Chloride 105, Carbon Dioxide 32.0, Anion Gap 3 L, BUN 14, Creatinine 0.72, Estim Creat Clear Calc 62.43, Est GFR (MDRD) Af Amer 105, Est GFR (MDRD) Non-Af 87, BUN/Creatinine Ratio 19.4, Glucose 96, Calcium 8.7 Micro: Microbiology 04/06/23 11:05 Tissue - Tibial Membrane Gram Stain - Final 04/06/23 11:05 Tissue - Tibial Membrane Wound Culture - Final No growth aerobically. 04/06/23 11:05 Tissue - Tibial Membrane Anaerobic Culture - Final No growth in 5 days. 04/06/23 11:00 Tissue - Femoral Membrane Gram Stain - Final 04/06/23 11:00 Tissue - Femoral Membrane Wound Culture - Final No growth aerobically. 04/06/23 11:00 Tissue - Femoral Membrane Anaerobic Culture - Final No growth in 5 days. 04/06/23 10:55 Tissue - Suprapatellar Pouch Gram Stain - Final 04/06/23 10:55 Tissue - Suprapatellar Pouch Wound Culture - Final No growth aerobically. 04/06/23 10:55 Tissue - Suprapatellar Pouch Anaerobic Culture - Final No growth in 5 days. Physical Exam Narrative Vital signs stable and afebrile. SCDs and BRUCE hose are in place bilaterally Patient is able to plantarflex and dorsiflex actively. Sensation is intact to light touch to saphenous, sural, superficial and deep peroneal, and tibial distribution. The wound VAC is currently in place with no drainage in the canister or tubing. There is stable drainage surrounding the foam dressing. Wound VAC was removed and there was no active drainage. No erythema. Sutures are in place. Negative Homans bilaterally, negative signs and symptoms of DVT. Const alert, oriented x3 and no apparent distress Extremity Extremity Narrative: Left lower extremity: Wound VAC dressing is clean dry and intact. There is no fluid in the container or tubing. Patient able to flex knee comfortably to 90 degrees with heel slide in bed Sensations intact to light touch saphenous, sural, superficial peroneal, deep peroneal, and tibial distributions Motors intact EHL, DF, PF calves are soft and supple Assessment & Plan Assessment/Plan (1) Status post revision of total replacement of left knee: PLAN: 1. S/P revision left total knee replacement with removal of antibiotic spacer POD #5 2. Continue Pain Medications: Tylenol, meloxicam, oxycodone. Do not take any other nonsteroidal anti-inflammatories while using meloxicam/Mobic. Pain has been controlled on medications. 3. DVT Prophylaxis: Take 81 mg aspirin twice daily for 4 weeks postoperatively for DVT prophylaxis. Patient denies past history of DVT or pulmonary embolism 4. PT/OT: Weightbearing as tolerated with walker. Patient has progressed her distance walking with physical therapy through the weekend. She currently walked 110 feet today. 5. H & H: 9.8/30.0, asymptomatic. Vitals are stable. Patient's hemoglobin has been trending upward. She has had postoperative anemia without intraoperative complications. She has been treated with ferrous sulfate and folic acid. She will continue with ferrous sulfate and folic acid in which she has medications at home. She has to follow-up with her primary care physician in 2 weeks for repeat lab work and discussion with her primary care physician with further management. She was instructed with the ferrous sulfate this can cause some constipation and if she notices any stool color changes to contact our office. 6. Reactive leukocytosis: Resolved 7. Postoperative wound drainage: Wound VAC was removed today and there was no erythema or any active drainage. A Mepilex dressing was placed over the incision. We will have her continue with physical therapy today and the plan will be to be discharged with a Mepilex dressing unless there is drainage. If any further drainage possible incisional wound VAC. If she goes home with the Mepilex dressing she is to remove the dressing on April 18, 2023. She can shower with the Mepilex dressing. 8. Continue postoperative medical management per medicine: O2 saturation has been stable on room air 9. Currently on doxycycline for 2 weeks postoperatively. Microbiology wound and tissue specimens were reviewed in chart and there is currently no growth or organisms seen today. Potential side effects of doxycycline including sensitivity to the sunlight and increased risk of skin burn have been discussed with the patient. Recommend patient take appropriate precautions. Also recommend patient to take probiotic while on the antibiotic. Patient voiced understanding agreement. 10. Encouraged Incentive Spirometry 11. Disposition: Patient has continued to progress with physical therapy and doing well. She did not get approval from insurance for discharge to transitional care unit. She will be set up with home health physical therapy by case management. I discussed with the patient the importance of continuing to work on range of motion and strengthening exercises as she has gone through many surgeries for this knee. She voiced understanding and agreement. She would like her medications [facility] scribed to [facility]. She will follow-up per postoperative instructions. She will contact her office upon discharge with any concerns or questions. Patient will be set up with a follow-up with her primary care physician for continued management of the postoperative anemia. I have reviewed the [place] Automated Rx Reporting System (OARRS) report for this patient for refill pattern and other prescriber involvement as part of the appropriate surveillance for the provision of acute and chronic controlled medications. The report was requested and reviewed on the date of this entry and was considered in the prescribing process. This dictation was created using voice recognition software. Phonetic and/or grammatical errors may exist.
--- NOTE | 2023-04-11 11:40 | DCINST_ITS ---
Discharge Instructions Diet Discharge Diet: No restrictions Activity Discharge Activity: May Not Drive (Must be able to walk 100 feet without the use of cane or walker and off all narcotics) May shower in (days): 1 (Please turn dressing away from water. Okay to get wet as long as dressing is intact to skin.) Ice area for (Minutes): 20 (Every 1-2 hours while awake[address] place barrier between the skin and ice pack.) Weight Bearing Status: Weight bearing as tolerated (With walker) Keep extremity elevated above heart level: Operative Extremity Dressing / Incision Call your doctor if your incision/area has: Continuous Slow Oozing, Sudden Increased Bleeding, Increased Pain/ Swelling, Increased Redness and Foul Smelling Discharge Call your doctor if you observe: Fever of 101 or Higher, Coldness, Increased Pain, Numbness or Tingling, Change in Color, Shortness of breath, Chest pain, Calf discomfort and Uncontrolled pain Remove Dressing in: 1 week (Okay to remove Mepilex dressing on April 18, 2023) Additional Dressing/Incision Instructions:: Follow [facility] Post-op Instructions. Once postoperative dressing has been removed only use gentle soap and water over the incision. Do not use any ointments, Neosporin, salves, alcohol pads over the incision for 6 weeks postoperatively. Do not submerge underwater for 6 weeks postoperatively. Continue with BRUCE hose/elastic stockings for 2 weeks postoperatively. May remove at nighttime but needs to be placed back on the leg during the day. Do NOT use alcohol with narcotic pain medication. Do NOT make important decisions while taking narcotic medication. If you have problems with taking your medication (rash, itching, nausea, etc.) call the office at once. Follow Up Care Test Results: Test results from this visit will be discussed in further detail at your follow- up appointment, if applicable. Discharge Plan Admission Admit Date/Time: 04/06/23 07:30 Attending Provider: Otf Bethea Primary Care Provider: Duane Odom Consulting Providers: Be Kulkarni; Stephanie Martin Discharge Orders/Prescriptions Prescriptions: New aspirin 81 mg capsule 81 mg PO BID 30 Days Qty: 60 0RF Rx Instructions: Take 81 mg aspirin twice daily for 4 weeks postoperatively for DVT prophylaxis. meloxicam 7.5 mg Tablet 7.5 mg PO BID 30 Days Qty: 60 0RF Rx Instructions: Do not take any other nonsteroidal anti-inflammatories while using meloxicam/Mobic. doxycycline monohydrate 100 mg Capsule 100 mg PO BID 9 Days Qty: 18 0RF Rx Instructions: Continue doxycycline for 2 weeks postoperatively oxycodone 5 mg Tablet 5 - 10 mg PO Q4H PRN PRN (Reason: Pain Score 4-10) 7 Days Qty: 60 0RF Continued fexofenadine 60 MG tablet 60 mg PO DAILY PRN (Reason: Allergies) acetaminophen 500 mg Tablet 1,000 mg PO Q8 PRN (Reason: Pain) Qty: 90 0RF ergocalciferol (vitamin D2) 50,000 UNIT capsule 50,000 unit PO Mejia@1000 folic acid 1 mg Tablet 1 mg PO DAILY lisinopril 10 mg tablet 20 mg PO DAILY ferrous sulfate [FeroSul] 325 mg (65 mg iron) Tablet 325 mg PO 1200,1700 30 Days Qty: 60 0RF duloxetine 30 mg Capsule,Delayed Release(Dr/Ec) 30 mg PO DAILY 30 Days Qty: 30 0RF omeprazole 20 mg capsule,delayed release(DR/EC) 20 mg PO DAILY Patient Comments: TAKE 1 CAPSULE BY MOUTH EVERY DAY tizanidine 4 mg tablet 4 mg PO QHS Patient Comments: TAKE 1 TABLET BY MOUTH AT BEDTIME NEEDED cefadroxil 500 mg capsule 500 mg PO TID Patient Comments: TAKE 1 CAPSULE BY MOUTH THREE TIMES A DAY Discontinued oxycodone 5 mg Tablet 5 mg PO Q6H PRN PRN (Reason: Pain Score 4-10) 7 Days Qty: 28 0RF aspirin [Adult Low Dose Aspirin] 81 mg tablet,delayed release (DR/EC) 81 mg PO DAILY Referrals / Follow Up: Duane Odom MD [Primary Care Provider] - Leonel Dill PA-C [Med Staff - [facility]] - 04/21/23 4:00 pm Disposition Disposition (needs filled in before D/C Order can be placed): Home Health Service
--- NOTE | 2023-04-11 11:47 | PCM.DC.SUM ---
Providers Date of Admission: 04/06/23 Date of Discharge: 04/11/23 Primary Care Physician: Dr. 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 S/P revision left total knee replacement with removal of antibiotic spacer POD #5 2. Continue Pain Medications: Tylenol, meloxicam, oxycodone. Do not take any other nonsteroidal anti-inflammatories while using meloxicam/Mobic. Pain has been controlled on medications. 3. DVT Prophylaxis: Take 81 mg aspirin twice daily for 4 weeks postoperatively for DVT prophylaxis. Patient denies past history of DVT or pulmonary embolism 4. PT/OT: Weightbearing as tolerated with walker. Patient has progressed her distance walking with physical therapy through the weekend. She currently walked 110 feet today. 5. H & H: 9.8/30.0, asymptomatic. Vitals are stable. Patient's hemoglobin has been trending upward. She has had postoperative anemia without intraoperative complications. She has been treated with ferrous sulfate and folic acid. She will continue with ferrous sulfate and folic acid in which she has medications at home. She has to follow-up with her primary care physician in 2 weeks for repeat lab work and discussion with her primary care physician with further management. She was instructed with the ferrous sulfate this can cause some constipation and if she notices any stool color changes to contact our office. 6. Reactive leukocytosis: Resolved 7. Postoperative wound drainage: Wound VAC was removed today and there was no erythema or any active drainage. A Mepilex dressing was placed over the incision. We will have her continue with physical therapy today and the plan will be to be discharged with a Mepilex dressing unless there is drainage. If any further drainage possible incisional wound VAC. If she goes home with the Mepilex dressing she is to remove the dressing on April 18, 2023. She can shower with the Mepilex dressing. 8. Continue postoperative medical management per medicine: O2 saturation has been stable on room air 9. Currently on doxycycline for 2 weeks postoperatively. Microbiology wound and tissue specimens were reviewed in chart and there is currently no growth or organisms seen today. Potential side effects of doxycycline including sensitivity to the sunlight and increased risk of skin burn have been discussed with the patient. Recommend patient take appropriate precautions. Also recommend patient to take probiotic while on the antibiotic. Patient voiced understanding agreement. 10. Encouraged Incentive Spirometry 11. Disposition: Patient has continued to progress with physical therapy and doing well. She did not get approval from insurance for discharge to transitional care unit. She will be set up with home health physical therapy by case management. I discussed with the patient the importance of continuing to work on range of motion and strengthening exercises as she has gone through many surgeries for this knee. She voiced understanding and agreement. She would like her medications E scribed to [facility]. She will follow-up per postoperative instructions. She will contact her office upon discharge with any concerns or questions. Patient will be set up with a follow-up with her primary care physician for continued management of the postoperative anemia. I have reviewed the [place] Automated Rx Reporting System (OARRS) report for this patient for refill pattern and other prescriber involvement as part of the appropriate surveillance for the provision of acute and chronic controlled medications. The report was requested and reviewed on the date of this entry and was considered in the prescribing process. This dictation was created using voice recognition software. Phonetic and/or grammatical errors may exist. Medications at Discharge Home Medications fexofenadine 60 mg tablet 60 mg PO DAILY PRN Allergies 06/11/20 acetaminophen 500 mg tablet 1,000 mg (2 x 500 mg) PO Q8 PRN Pain #90 tabs 05/27/21 ergocalciferol (vitamin D2) 1,250 mcg (50,000 unit) capsule 50,000 unit PO Mejia@1000 supplement 06/29/21 folic acid 1 mg tablet 1 mg PO DAILY supplement 12/22/22 lisinopril 10 mg tablet 20 mg PO DAILY blood pressure 12/22/22 duloxetine 30 mg capsule,delayed release 30 mg PO DAILY STOOL SOFTENER 30 days #30 caps 02/02/23 ferrous sulfate 325 mg (65 mg iron) tablet (FeroSul) 325 mg PO 1200,1700 LOW IRON 30 days #60 tabs 02/02/23 omeprazole 20 mg capsule,delayed release 20 mg PO DAILY GERD 03/02/23 tizanidine 4 mg tablet 4 mg PO QHS SLEEP 03/02/23 cefadroxil 500 mg capsule 500 mg PO TID UTI 04/01/23 aspirin 81 mg capsule 81 mg PO BID 30 days #60 caps 04/11/23 doxycycline monohydrate 100 mg capsule 100 mg PO BID 9 days #18 caps 04/11/23 meloxicam 7.5 mg tablet 7.5 mg PO BID 30 days #60 tabs 04/11/23 oxycodone 5 mg tablet 5 - 10 mg (1 - 2 x 5 mg) PO Q4H PRN PRN Pain Score 4-10 7 days #60 tabs 04/11/23 Hospital Course Operations total knee replacement (Left knee removal antibiotic spacer with revision left total knee arthroplasty) Procedures Wound vac placement (Removed on April 11, 2023 with Mepilex dressing placed over incision) Summary of Care Provided Hospital Course: Patient is a 63-year-old female who has had extensive history of left knee surgery. Patient had a left knee explant total knee replacement with placement of articulating antibiotic spacer on December 29, 2022. She had her initial left total knee arthroplasty done by Dr. Lalit Charles on June 26, 2021. After that procedure she had worsening symptoms in which there was evidence of loosening. She had positive cultures for Enterococcus faecalis. She underwent antibiotic spacer. She was treated postoperatively for 6 weeks with IV antibiotics. After failing conservative and surgical measures, the patient opted to proceed with a left knee removal antibiotic spacer to a left revision total knee arthroplasty. The patient underwent the above-stated procedure on April 06, 2023. Patient did receive perioperative antibiotics. Intraoperatively was uneventful. For details please see dictated operative note. The patient was placed in thigh-high teds, bilateral SCDs, remained stable in recovery. Patient was admitted to the 3rd floor at [facility]. The patient's pain was managed with the use of IV and p.o. pain medications. Patient had incisional wound VAC which was placed intraoperatively however due to significant drainage a regular wound VAC was placed. Patient had no drainage there after placement of the wound VAC. Wound VAC was removed on April 11, 2023 and Mepilex dressing was placed. She will continue with the Mepilex dressing for an additional 1 week. Cultures have been negative and reviewed in the hospital chart. She has continued on the doxycycline and will continue with this for 2 weeks postoperatively. Patient did have postoperative anemia in which she was treated with ferrous sulfate and folic acid. Hemoglobin has been trending upward and she will continue with this treatment and follow-up with her primary care physician in 2 weeks. Further assessment of her postoperative anemia will be addressed by the primary care physician and if further treatment will be required. Patient participated in physical therapy while in the hospital. Patient did advance the amount of walking and today she is walking 110 feet. She was denied from insurance discharge to transitional care unit at [facility]. Case management has been involved for appropriate discharge planning. She will be set up with home health physical therapy. Patient was discharged on postoperative day # 5 to home with home health physical therapy. Patient was given medications stated below. Patient will follow up with [facility] per postop instructions for reassessment. Physical Exam Narrative Vital signs stable and afebrile. SCDs and BRUCE hose are in place bilaterally Patient is able to plantarflex and dorsiflex actively. Sensation is intact to light touch to saphenous, sural, superficial and deep peroneal, and tibial distribution. Wound VAC dressing was removed today and incision is doing well without any active drainage or erythema. Sutures are in place. Mepilex dressing was placed over the incision. Negative Homans bilaterally, negative signs and symptoms of DVT. Const alert, oriented x3 and no apparent distress Weight / BMI Weight Weight: 92 kg Body Mass Index (BMI) 37.0 ABG / Lab / Microbiology Data 04/11/23 07:55 04/11/23 07:55 Laboratory: Laboratory Results - last 24 hr 04/11/23 07:55: WBC 5.6, RBC 3.32 L, Hgb 9.8 L, Hct 30.0 L, MCV 90.4, MCH 29.5, MCHC 32.7, RDW Std Deviation 44.1 H, RDW Coeff of Daphne 13.6, Plt Count 308, MPV 9.1, Immature Gran % (Auto) 1.100 H, Neut % (Auto) 58.6, Lymph % (Auto) 26.6, Rush % (Auto) 7.1, Eos % (Auto) 5.7 H, Baso % (Auto) 0.9, Absolute Neuts (auto) 3.3, Absolute Lymphs (auto) 1.50, Nucleated RBC % 0, Sodium 140, Potassium 3.8, Chloride 105, Carbon Dioxide 32.0, Anion Gap 3 L, BUN 14, Creatinine 0.72, Estim Creat Clear Calc 62.43, Est GFR (MDRD) Af Amer 105, Est GFR (MDRD) Non-Af 87, BUN/Creatinine Ratio 19.4, Glucose 96, Calcium 8.7 Microbiology: Microbiology 04/06/23 11:05 Tissue - Tibial Membrane Gram Stain - Final 04/06/23 11:05 Tissue - Tibial Membrane Wound Culture - Final No growth aerobically. 04/06/23 11:05 Tissue - Tibial Membrane Anaerobic Culture - Final No growth in 5 days. 04/06/23 11:00 Tissue - Femoral Membrane Gram Stain - Final 04/06/23 11:00 Tissue - Femoral Membrane Wound Culture - Final No growth aerobically. 04/06/23 11:00 Tissue - Femoral Membrane Anaerobic Culture - Final No growth in 5 days. 04/06/23 10:55 Tissue - Suprapatellar Pouch Gram Stain - Final 04/06/23 10:55 Tissue - Suprapatellar Pouch Wound Culture - Final No growth aerobically. 04/06/23 10:55 Tissue - Suprapatellar Pouch Anaerobic Culture - Final No growth in 5 days. D/C Instructions Discharge Diet: No restrictions May shower in (days): 1 (Please turn dressing away from water. Okay to get wet as long as dressing is intact to skin.) Ice area for (Minutes): 20 (Every 1-2 hours while awake[address] Please place barrier between the skin and ice pack.) Weight Bearing Status: Weight bearing as tolerated (With walker) Keep extremity elevated above heart level: Operative Extremity Call your doctor if your incision/area has: Continuous Slow Oozing, Sudden Increased Bleeding, Increased Pain/ Swelling, Increased Redness and Foul Smelling Discharge Call your doctor if you observe: Fever of 101 or Higher, Coldness, Increased Pain, Numbness or Tingling, Change in Color, Shortness of breath, Chest pain, Calf discomfort and Uncontrolled pain Additional Dressing/Incision Instructions: Follow [facility] Post-op Instructions. Once postoperative dressing has been removed only use gentle soap and water over the incision. Do not use any ointments, Neosporin, salves, alcohol pads over the incision for 6 weeks postoperatively. Do not submerge underwater for 6 weeks postoperatively. Continue with BRUCE hose/elastic stockings for 2 weeks postoperatively. May remove at nighttime but needs to be placed back on the leg during the day. Do NOT use alcohol with narcotic pain medication. Do NOT make important decisions while taking narcotic medication. If you have problems with taking your medication (rash, itching, nausea, etc.) call the office at once. Meaningful Use Info Meaningful Use Diagnoses (Choose all that apply): None applicable Discharge Plan Admission Admit Date/Time: 04/06/23 07:30 Attending Provider: Otf Bethea Primary Care Provider: Duane Odom Consulting Providers: Be Kulkarni; Stephanie Martin Discharge Orders/Prescriptions Prescriptions: New aspirin 81 mg capsule 81 mg PO BID 30 Days Qty: 60 0RF Rx Instructions: Take 81 mg aspirin twice daily for 4 weeks postoperatively for DVT prophylaxis. meloxicam 7.5 mg Tablet 7.5 mg PO BID 30 Days Qty: 60 0RF Rx Instructions: Do not take any other nonsteroidal anti-inflammatories while using meloxicam/Mobic. doxycycline monohydrate 100 mg Capsule 100 mg PO BID 9 Days Qty: 18 0RF Rx Instructions: Continue doxycycline for 2 weeks postoperatively oxycodone 5 mg Tablet 5 - 10 mg PO Q4H PRN PRN (Reason: Pain Score 4-10) 7 Days Qty: 60 0RF Continued fexofenadine 60 MG tablet 60 mg PO DAILY PRN (Reason: Allergies) acetaminophen 500 mg Tablet 1,000 mg PO Q8 PRN (Reason: Pain) Qty: 90 0RF ergocalciferol (vitamin D2) 50,000 UNIT capsule 50,000 unit PO Mejia@1000 folic acid 1 mg Tablet 1 mg PO DAILY lisinopril 10 mg tablet 20 mg PO DAILY ferrous sulfate [FeroSul] 325 mg (65 mg iron) Tablet 325 mg PO 1200,1700 30 Days Qty: 60 0RF duloxetine 30 mg Capsule,Delayed Release(Dr/Ec) 30 mg PO DAILY 30 Days Qty: 30 0RF omeprazole 20 mg capsule,delayed release(DR/EC) 20 mg PO DAILY Patient Comments: TAKE 1 CAPSULE BY MOUTH EVERY DAY tizanidine 4 mg tablet 4 mg PO QHS Patient Comments: TAKE 1 TABLET BY MOUTH AT BEDTIME NEEDED cefadroxil 500 mg capsule 500 mg PO TID Patient Comments: TAKE 1 CAPSULE BY MOUTH THREE TIMES A DAY Discontinued oxycodone 5 mg Tablet 5 mg PO Q6H PRN PRN (Reason: Pain Score 4-10) 7 Days Qty: 28 0RF aspirin [Adult Low Dose Aspirin] 81 mg tablet,delayed release (DR/EC) 81 mg PO DAILY Referrals / Follow Up: Duane Odom MD [Primary Care Provider] - Leonel Dill PA-C [Med Staff - [facility]] - 04/21/23 4:00 pm Disposition Disposition (needs filled in before D/C Order can be placed): Home Health Service
[2023-04-11] MEDS: Ferrous Sulfate 325 MG Tablet PO (12:06)
--- NOTE | 2023-04-11 12:12 | WOUNDNOTE ---
wound photo: left knee
--- NOTE | 2023-04-11 14:25 | PHA.DC.MC.R ---
Pharmacy [facility] has performed discharge medication reconciliation and counseling for this patient. Per patient, she is no longer taking cefadroxil. 1. ASPIRIN 81MG PO BID X 30 DAYS 2. DOXYCYCLINE 100MG PO BID X 9 DAYS 3. MELOXICAM 7.5MG PO BID X 30 DAYS 4. OXYCODONE 5-10MG PO Q4H PRN PAIN The patient's discharge medication list was reviewed for discrepancies and discrepancies were resolved. The patient was counseled on the following discharge medications and changes in medications for homegoing were reviewed. The Reason for Use, instructions for use, and potential side effects were reviewed for all new medications. The patient's questions regarding all of their medications were answered. The patient was able to verbally demonstrate an understanding of their discharge medications. Patient counseled by pharmacy affairs assistantAmanda. Medications at Discharge Home Medications fexofenadine 60 mg tablet 60 mg PO DAILY PRN Allergies 06/11/20 acetaminophen 500 mg tablet 1,000 mg (2 x 500 mg) PO Q8 PRN Pain #90 tabs 05/27/21 ergocalciferol (vitamin D2) 1,250 mcg (50,000 unit) capsule 50,000 unit PO Mejia@1000 supplement 06/29/21 folic acid 1 mg tablet 1 mg PO DAILY supplement 12/22/22 lisinopril 10 mg tablet 20 mg PO DAILY blood pressure 12/22/22 duloxetine 30 mg capsule,delayed release 30 mg PO DAILY STOOL SOFTENER 30 days #30 caps 02/02/23 ferrous sulfate 325 mg (65 mg iron) tablet (FeroSul) 325 mg PO 1200,1700 LOW IRON 30 days #60 tabs 02/02/23 omeprazole 20 mg capsule,delayed release 20 mg PO DAILY GERD 03/02/23 tizanidine 4 mg tablet 4 mg PO QHS SLEEP 03/02/23 cefadroxil 500 mg capsule 500 mg PO TID UTI 04/01/23 aspirin 81 mg capsule 81 mg PO BID 30 days #60 caps 04/11/23 doxycycline monohydrate 100 mg capsule 100 mg PO BID 9 days #18 caps 04/11/23 meloxicam 7.5 mg tablet 7.5 mg PO BID 30 days #60 tabs 04/11/23 oxycodone 5 mg tablet 5 - 10 mg (1 - 2 x 5 mg) PO Q4H PRN PRN Pain Score 4-10 7 days #60 tabs 04/11/23
[2023-04-11 14:59] VITALS: BP 143/86; PULSE 80; RESP 18; TEMP 36.6; O2SAT 93
--- NOTE | 2023-04-11 15:10 | CASEMGMT ---
MAKAYLA SHRESTHA met with pt at bedside. Informed pt that [facility] is unable to provide staff. Reviewed HH providers and additional preferences obtained: [facility] next and then [facility]. AGUSTÍN Hearn Help Desk Consultant notified and requested referral be sent in that order. Les Subramanian RN CM
--- NOTE | 2023-04-11 15:20 | CASEMGMT ---
Discharge Planning Referral sent to [facility] and [facility] via [facility]. Nadiya Pereira, Discharge Planning Asst.
--- NOTE | 2023-04-11 16:07 | CASEMGMT ---
Discharge Planning Patient has been accepted by [facility]. RN CM notified. Nadiya Pereira, Discharge Planning Asst.
--- NOTE | 2023-04-11 16:10 | CASEMGMT ---
MAKAYLA SHRESTHA Follow-up: Pt notified that [facility] has accepted her for HH services and will contact her Tuesday or Tuesday to schedule SOC. Pt expressed understanding. Les Subramanian RN CM
== END 2023-04-11 17:34 | disposition home health service (06) | DRG 467 ==
LOC: ACINP 07:43 → MS3 16:09
PROVIDERS: Physician Assistant Surgical; Admitting Provider Specialist; PCP Family Medicine; Visit Provider Specialist
PROC: 0SRD0J9 Replacement of Left Knee Joint with Synthetic Substitute, Cemented, Open Approach (ICD-10-PCS; principal; 2023-04-06 09:35)
DX: Z47.33 Aftercare following explantation of knee joint prosthesis (principal); D62 Acute posthemorrhagic anemia; E66.01 Morbid (severe) obesity due to excess calories; D63.8 Anemia in other chronic diseases classified elsewhere; I10 Essential (primary) hypertension; I25.10 Atherosclerotic heart disease of native coronary artery without angina pectoris; E78.5 Hyperlipidemia, unspecified; K21.9 Gastro-esophageal reflux disease without esophagitis; G47.33 Obstructive sleep apnea (adult) (pediatric); Z95.5 Presence of coronary angioplasty implant and graft; Z68.37 Body mass index [BMI] 37.0-37.9, adult; Z79.82 Long term (current) use of aspirin; Z87.891 Personal history of nicotine dependence
CPT/HCPCS: 36415; 73560; 80048; 82962; 85025; 85027; 87015; 87070; 87075; 87102; 87116; 87176; 87205; 87206; 93005; 94668; 97110; 97116; 97162; 97166; 97530; 97535; 99252; C1776; J7120; A4216; G0463; J2405; J3475

== ENCOUNTER 2023-05-19 15:11 | Outpatient (CLI) | payer MEDICARE, MEDICAID, SELFPAY ==
[2023-05-19 17:54] LABS: Absolute Lymphocyte Count 1.66 X10^3/uL (0.83-4.51); Absolute Neutrophil Count 6.1 X10^3/uL (2.0-7.7); Basophil# 0.08 X10^3/uL; Basophil% 0.9 % (0-1); Eosinophil# 0.26 X10^3/uL; Hematocrit 39.2 % (37-47); Hemoglobin 12.5 g/dL (12.0-15.0); Lymphocyte # 1.66 X10^3/ul (0.83-4.51); Lymphocyte % 19.3 % (19-41); Mean Corp Hgb Conc 31.9 g/dL (32-36); Mean Corpuscular Hgb 29.4 pg (27.0-32.0); Mean Corpuscular Volume 92.2 fL (81-99); Mean Platelet Vol. 10.1 fl (6.2-12.0); Monocyte# 0.52 X10^3/uL; NRBC Flagged by Analyzer 0 % (0-5); Neutrophil # 6.07 X10^3/uL (2.7-7.7); Neutrophil % 70.5 % (47-70); Platelet Count 412 K/mm3 (150-450); RBC Distribution Width CV 13.7 % (11.6-14.6); RBC Distribution Width SD 46.3 fl (35.1-43.9); RET-HE 32.9 pg (30-35); Red Blood Count 4.25 M/mm3 (4.2-5.4); White Blood Count 8.6 K/mm3 (4.4-11.0)
[2023-05-19 18:29] LABS: Vitamin B12 286 pg/mL (211-911); Vitamin D,25 Hydroxy 78.4 ng/mL
[2023-05-19 18:30] LABS: Erythrocyte Sedimentation Rate 31 mm/hr (0-30)
[2023-05-19 18:45] LABS: ALB/GLOB Ratio 0.9 RATIO (0.9-2.4); AST(SGOT) 46 U/L (15-37); Alanine Aminotransfer ALT/SGPT 20 U/L (13-56); Albumin, Serum 3.6 g/dL (3.2-5.0); Alkaline Phosphatase 88 U/L (45-117); Anion Gap 6 (5-15); BUN 14 mg/dL (7-18); BUN/Creat Ratio 18.5 RATIO (10-20); CRP 8.41 mg/L (0.0-3.0); Calcium,Total 9.4 mg/dL (8.5-10.1); Chloride 109 mmol/L (98-107); Creatinine, Serum 0.76 mg/dL (0.55-1.02); EST Glomerular Filtration Rate 82 mL/min (>60); Est Glom Filt Rate - Afr Amer 99 mL/min (>60); Ferritin 28 ng/mL (8-252); Globulin 3.8 g/dL (2.2-4.2); Glucose 87 mg/dL (74-106); Iron 82 ug/dL (50-170); Iron Binding Capacity,Total 401 ug/dL (250-450); Potassium 3.6 mmol/L (3.5-5.1); Protein, Total 7.4 g/dL (6.4-8.2); Sodium Level 142 mmol/L (136-145); Thyroid Stim Hormone (TSH) 0.61 uIU/mL (0.358-3.74)
== END 2023-05-19 23:59 | disposition home or self-care (01) ==
LOC: MTLAB 15:12
PROVIDERS: PCP Family Medicine; Visit Provider Family Medicine
DX: M06.9 Rheumatoid arthritis, unspecified (principal); D64.9 Anemia, unspecified; R32 Unspecified urinary incontinence; F32.A Depression, unspecified; E55.9 Vitamin D deficiency, unspecified
CPT/HCPCS: 36415; 80053; 82306; 82607; 82728; 83540; 83550; 84443; 85025; 85045; 85652; 86140; 87086; 87088

== ENCOUNTER → 2023-07-14 | Outpatient (CLI) | payer MEDICARE, MEDICAID, SELFPAY ==
--- NOTE | 2023-07-14 14:46 | BI_ITS ---
MAMMOGRAPHY - BILATERAL SCREENING REASON FOR EXAM: Female, 63 years old. Routine annual screening examination. PERTINENT HISTORY: Aunt with breast cancer. TECHNIQUE: Digital bilateral breast aristides (3D mammographic acquisition) in the CC and MLO projections. 2-D mediolateral oblique (MLO) and craniocaudad (CC) views of both breasts were obtained. CAD: Full Field Digital Mammography with Computer Added Detection was performed. COMPARISON: Comparison is made with prior outside examination dated August 17, 2012. FINDINGS: Breast Composition: There are scattered areas of fibroglandular density. There is a faint 6.5 mm x 6.5 mm well-defined nodule in the upper lateral aspect of the left breast. This has decreased in size as compared to prior study. Targeted ultrasound correlation is recommended. Stable benign-appearing bilateral axillary lymph nodes. There are no dominant masses or suspicious calcifications. No other significant abnormalities are identified. BI/SCRN MAMM (CAD)W/ARISTIDES BILAT IMPRESSION: Faint 6.5 mm x 6.5 mm well-defined nodule in the upper lateral aspect of the left breast as described. Correlation with ultrasound is recommended. ASSESSMENT CATEGORY: BIRADS Category 0: Incomplete. Need additional imaging evaluation. A letter regarding these results will be sent to the patient by the facility within 30 days. Approximately 10% of breast cancers are not detected by mammography. A normal mammogram should not delay biopsy of a clinically suspicious abnormality. [id number] Electronically Signed: Raymon Marquez MD at 8:25 EST ,
--- NOTE | 2023-07-14 14:49 | BD_ITS ---
STUDY: DUAL ENERGY X-RAY ABSORPTIOMETRY / DXA REASON FOR EXAM: Female, 63 years old. Z780 TECHNIQUE: Bone Mineral Density (BMD) measurements of lumbar spine and bilateral hips were obtained. COMPARISON: Comparison is made with prior study dated April 18, 2018. FINDINGS: Lumbar Spine (L1-L4): g/cm2 (0.799) / T-score (-2.3) / Z-score (-0.5) Findings are suggestive of osteopenia with a high fracture risk. Left Femur Total: g/cm2 (0.594) / T-score (-2.8) / Z-score (-1.7) Left Femoral Neck: g/cm2 (0.466) / T-score (-3.5) / Z-score (-2.0) Right Femur Total: g/cm2 (0.702) / T-score (-2.0) / Z-score (-0.8) Right Femoral Neck: g/cm2 (0.566) / T-score (-2.5) / Z-score (-1.1) The T-Scores on the most recent prior examination were: Lumbar Spine (L1-L4): There has been improvement of bone density since the previous examination. Left Femur Total: which represents a worsening of 14%. Right Femur Total: which represents an improvement of 5%. BD/Dexa Bone Density Study IMPRESSION: The patient is considered osteoporotic as outlined below according to World Surjit Organization (WHO) criteria with a high fracture risk. There has been improvement of bone density since the previous examination. Reference Information: The T-score is the number of standard deviations above or below the standard which is normal for young adults at their peak bone mineral density. The World Health Organization (WHO) interprets the T-scores as follows: Above -1 Normal bone density Between -1 and -2.5 Osteopenia Equal to / or below -2.5 Osteoporosis As a practical clinical guideline, osteopenia may be graded as follows: Mild -1 through -1.5 Moderate -1.6 through -2.0 Severe -2.1 through -2.4 The Z-score is the number of standard deviations above or below age-matched controls. A Z-score of less than -1.5 would be considered abnormal. References: 1. NIH Osteoporosis and Related Bone Diseases www osteo.org 2. International Society for Clinical Densitometry www iscd.org 3. National Osteoporosis Foundation www nof.org Electronically Signed: Raymon Marquez MD at 14:27 EST ,
== END | disposition home or self-care (01) ==
LOC: OPBD 14:44
PROVIDERS: PCP Family Medicine; Referring Provider Family Medicine; Visit Provider Family Medicine
DX: Z12.31 Encounter for screening mammogram for malignant neoplasm of breast (principal); Z78.0 Asymptomatic menopausal state
CPT/HCPCS: 77063; 77067; 77080

== ENCOUNTER → 2023-07-19 | Outpatient (CLI) | payer MEDICARE, MEDICAID, SELFPAY ==
--- NOTE | 2023-07-19 14:35 | US_ITS ---
STUDY: ULTRASOUND BREAST - LEFT REASON FOR EXAM: Female, 63 years old. Abnormal screening mammogram. TECHNIQUE: Axial and longitudinal images of the LEFT breast were performed with a high resolution ultrasound transducer. # OF IMAGES: 42 COMPARISON: Comparison is made with prior mammogram dated July 14, 2023. FINDINGS: LEFT Breast: The upper-outer quadrant of the left breast was examined with ultrasound. There is a 6 mm x 5 mm x 4 mm cyst at the 2:00 position of the breast at 12 cm from the nipple. US/Breast Limited Unilateral IMPRESSION: 6 mm x 5 mm x 4 mm cyst at the 2:00 position of the breast at 12 cm from the nipple. ASSESSMENT CATEGORY: BIRADS Category 2: Benign. A letter regarding these results will be sent to the patient by the facility within 30 days. Electronically Signed: Raymon Marquez MD at 8:28 EST ,
== END | disposition home or self-care (01) ==
LOC: OPUS 14:33
PROVIDERS: PCP Family Medicine; Referring Provider Family Medicine; Visit Provider Family Medicine
DX: R92.8 Other abnormal and inconclusive findings on diagnostic imaging of breast (principal)
CPT/HCPCS: 76642

== ENCOUNTER → 2023-07-21 | Outpatient (CLI) | payer MEDICARE, MEDICAID, SELFPAY ==
[2023-07-21 18:05] LABS: Ionized Calcium 5.08 mg/dL (4.36-5.20)
[2023-07-21 18:32] LABS: Anion Gap 8 (5-15); BUN 19 mg/dL (7-18); BUN/Creat Ratio 24.6 RATIO (10-20); Chloride 103 mmol/L (98-107); Creatinine, Serum 0.77 mg/dL (0.55-1.02); EST Glomerular Filtration Rate 80 mL/min (>60); Est Glom Filt Rate - Afr Amer 97 mL/min (>60); Glucose 83 mg/dL (74-106); Phosphorus 2.4 mg/dL (2.5-4.9); Potassium 3.5 mmol/L (3.5-5.1); Sodium Level 138 mmol/L (136-145); Thyroid Stim Hormone (TSH) 1.29 uIU/mL (0.358-3.74)
[2023-07-21 23:11] LABS: Ionized Calcium Order ORDER TUBE
[2023-07-22 09:28] LABS: PTHIN 58.2 pg/mL (18.4-80.1)
== END | disposition home or self-care (01) ==
LOC: MFPLAB 15:10
PROVIDERS: PCP Family Medicine; Visit Provider Family Medicine
DX: M81.0 Age-related osteoporosis without current pathological fracture (principal); R53.83 Other fatigue
CPT/HCPCS: 36415; 80048; 82306; 82330; 83970; 84100; 84443

== ENCOUNTER → 2024-10-11 | Outpatient (CLI) | payer MEDICAID, MEDICARE, SELFPAY ==
[2024-10-11 16:57] LABS: Ionized Calcium Order ORDER TUBE
[2024-10-11 17:44] LABS: Absolute Lymphocyte Count 2.22 X10^3/uL (0.83-4.51); Absolute Neutrophil Count 6.9 X10^3/uL (2.0-7.7); Basophil# 0.08 X10^3/uL; Basophil% 0.8 % (0-1); Eosinophil# 0.34 X10^3/uL; Eosinophils% 3.3 % (0-5); Hematocrit 35.8 % (37-47); Hemoglobin 11.2 g/dL (12.0-15.0); Lymphocyte # 2.22 X10^3/ul (0.83-4.51); Lymphocyte % 21.4 % (19-41); Mean Corp Hgb Conc 31.3 g/dL (32-36); Mean Corpuscular Hgb 27.2 pg (27.0-32.0); Mean Corpuscular Volume 86.9 fL (81-99); Mean Platelet Vol. 9.5 fl (6.2-12.0); Monocyte# 0.68 X10^3/uL; Monocyte% 6.6 % (0-10); NRBC Flagged by Analyzer 0 % (0-5); Neutrophil # 6.92 X10^3/uL (2.7-7.7); Neutrophil % 66.7 % (47-70); Platelet Count 657 K/mm3 (150-450); RBC Distribution Width CV 13.8 % (11.6-14.6); RBC Distribution Width SD 43.8 fl (35.1-43.9); Red Blood Count 4.12 M/mm3 (4.2-5.4); White Blood Count 10.4 K/mm3 (4.4-11.0)
[2024-10-11 17:55] LABS: Ionized Calcium 1.28 mmol/L (1.09-1.30)
[2024-10-11 18:18] LABS: PTHIN 46.3 pg/mL (18.4-80.1)
[2024-10-11 18:27] LABS: Vitamin B12 > 2000 pg/mL (211-911); Vitamin D,25 Hydroxy 74.5 ng/mL
[2024-10-11 18:32] LABS: Erythrocyte Sedimentation Rate 63 mm/hr (0-30)
[2024-10-11 18:59] LABS: ALB/GLOB Ratio 0.6 RATIO (0.9-2.4); AST(SGOT) 7 U/L (15-37); Alanine Aminotransfer ALT/SGPT 9 U/L (13-56); Alkaline Phosphatase 82 U/L (45-117); Anion Gap 8 (5-15); BUN 13 mg/dL (7-18); BUN/Creat Ratio 19.6 RATIO (10-20); Calcium,Total 9.6 mg/dL (8.5-10.1); Chloride 104 mmol/L (98-107); Cholesterol 226 mg/dL (200); Creatinine, Serum 0.66 mg/dL (0.55-1.02); EST Glomerular Filtration Rate 95 mL/min (>60); Est Glom Filt Rate - Afr Amer 115 mL/min (>60); Globulin 4.9 g/dL (2.2-4.2); Glucose 105 mg/dL (74-106); High Density Lipoprotein 47 mg/dL; Potassium 3.8 mmol/L (3.5-5.1); Protein, Total 7.9 g/dL (6.4-8.2); Sodium Level 138 mmol/L (136-145); Triglycerides 180 mg/dL; Uric Acid 4.9 mg/dL (2.6-6.0); Very Low Density Lipoprotein 36 mg/dL (5-40)
[2024-10-15 14:07] LABS: ANTINUCLEAR ANTIBODIES DIRECT Negative (Negative)
[2024-10-15 15:07] LABS: PROEL- A/G Ratio 0.8 (0.7-1.7); PROEL- Alpha-1 Globulin 0.4 g/dL (0.0-0.4); PROEL- Alpha-2 Globulin 1.2 g/dL (0.4-1.0); PROEL- Beta Globulin 1.4 g/dL (0.7-1.3); PROEL-M-Spike Comment: g/dL (Not Observed)
== END | disposition home or self-care (01) ==
LOC: MFPLAB 15:55
PROVIDERS: PCP Family Medicine; Referring Provider Family Medicine; Visit Provider Family Medicine
DX: E55.9 Vitamin D deficiency, unspecified (principal); M06.9 Rheumatoid arthritis, unspecified; E53.8 Deficiency of other specified B group vitamins; I25.10 Atherosclerotic heart disease of native coronary artery without angina pectoris; F41.1 Generalized anxiety disorder; M81.0 Age-related osteoporosis without current pathological fracture
CPT/HCPCS: 36415; 80053; 80061; 82306; 82330; 82607; 83970; 84165; 84443; 84550; 85025; 85652; 86038; 86140; 86431

== ENCOUNTER 2025-02-01 11:07 | Emergency (ER) | payer MEDICARE, MEDICAID, SELFPAY ==
[2025-02-01 11:08] VITALS: BP 139/92; PULSE 107; RESP 20; TEMP 37; O2SAT 100; BMI 32.4
--- NOTE | 2025-02-01 11:25 | EKG12_ITS ---
Test Reason : SYNCOPE Blood Pressure : */* mmHG Vent. Rate : 97 BPM Atrial Rate : 97 BPM P-R Int : 148 ms QRS Dur : 72 ms QT Int : 376 ms P-R-T Axes : 44 9 49 degrees QTcB Int : 477 ms Normal sinus rhythm Normal ECG Confirmed by Lalit Tucker ([id number]), publishing editor CHRISTOPHER BRIONES ([id number]) on 02/04/2025 10:48:59 AM Referred By: Confirmed By: Lalit Tucker
--- NOTE | 2025-02-01 11:27 | ED.VIS.CHEST ---
HPI History of Present Illness Chief Complaint: Shortness of Breath Informant: patient and EMS Narrative Narrative: Patient states that since 3 or 4 this a.m. she has been feeling lightheaded, with episodes like she is going to pass out and her heart racing. Does not feel like it is skipping. Initially denies dyspnea and chest discomfort but later tells me she had this sensation in her upper abdomen and chest like she has to burp and like there is squeezing discomfort. She had a coronary stent in the past. She takes aspirin every day but no other antiplatelet or anticoagulants. She denies any pleuritic chest discomfort. She denies a history of DVT or PE recent leg pain or swelling, recent long travel out of the area, denies hospitalization or outpatient surgery recently. [facility] Medical History Ambulates with cane Anemia Marijuana use ANN (obstructive sleep apnea) Rheumatoid arthritis Allergic rhinitis Gastroesophageal reflux disease Vitamin D deficiency Debility Septic arthritis Wears glasses Anxiety Depression Uses wheelchair Walker as ambulation aid Arthritis Back pain Chronic headaches Former smoker Shortness of breath on exertion History of pain when walking Cardiology follow-up encounter History of non-ST elevation myocardial infarction (NSTEMI) (04/26/16) Obesity Essential hypertension Atherosclerosis of coronary artery of [place] heart without angina pectoris Osteoarthritis of both knees Fibromyalgia Syncope Home Medications ?Medication ?Instructions ?Recorded ?Last Taken ?Type omeprazole 20 mg capsule,delayed 20 mg PO DAILY GERD 03/02/23 02/01/25 History release alendronate 70 mg tablet 70 mg PO ALLAN 02/01/25 01/27/25 History aspirin 81 mg tablet,delayed 81 mg PO DAILY 02/01/25 02/01/25 History release (Adult Low Dose Aspirin) biotin 1 mg capsule 1 mg PO DAILY 02/01/25 02/01/25 History cholecalciferol (vitamin D3) 50 50 mcg PO DAILY 02/01/25 02/01/25 History mcg (2,000 unit) capsule fexofenadine 60 mg-pseudoephedrine 1 tab PO DAILY PRN allergy symptoms 02/01/25 Unknown History ER 120 mg tablet,ext.release,12 hr (Allie-D 12 Hour) leflunomide 10 mg tablet 10 mg PO DAILY 02/01/25 01/31/25 History lisinopril 20 mg tablet 20 mg PO DAILY 02/01/25 02/01/25 History mecobalamin (vitamin B12) 1,000 1,000 mcg PO DAILY 02/01/25 02/01/25 History mcg lozenges Allergy/AdvReac Type Severity Reaction Status Date / Time No Known Allergies Allergy Verified 02/01/25 11:10 Family History Mother Hypertension CVA (cerebral vascular accident) Sister Cancer Father Heart disease Surgical History History of cardiac catheterization History of coronary artery stent placement (04/26/16) History of total left knee replacement (2020) History of total right knee replacement Hx of colonoscopy Status post incision and drainage Social History household members: children Smoking Status: Former smoker how long ago did patient quit smokin years ago alcohol intake: current alcohol intake frequency: holidays/special occasions only substance use type: does not use caffeine: Yes Type: carbonated beverages and coffee ROS ROS ED Constitutional Constitutional ED: Denies chills or fever(s) Eyes Eyes: Denies change in vision or diplopia ENT ENT ED: Denies rhinorrhea or sore throat Cardiovascular Cardiovascular: Reports chest pain, lightheadedness and racing heartbeat; Denies radiating jaw, neck or arm pain or syncope Respiratory/Chest Respiratory/Chest: Denies cough or dyspnea Gastrointestinal Gastrointestinal: Denies abdominal pain, diarrhea, nausea or vomiting Genitourinary Genitourinary ED: Denies dysuria or hematuria Musculoskeletal Musculoskeletal: Denies back pain or neck pain Integumentary Denies abscess or rash Neurologic Neurologic: Reports paresthesias; Denies headache(s) or weakness Psychiatric Psychiatric: Denies suicidal thoughts EXAM Physical Exam Const Vital Signs: 02/01/25 11:08 02/01/25 11:25 02/01/25 12:48 Temperature 98.6 F Temperature Source Oral Pulse Rate 107 H Pulse Rate [Lying] 84 Pulse Rate [Sitting (for 1 minute prior to obtaining)] 94 Pulse Rate [Standing (for 1 minute prior to obtaining)] 100 Respiratory Rate 20 H Blood Pressure 139/92 H Blood Pressure [Lying] 154/81 H Blood Pressure [Sitting (for 1 minute prior to obtaining)] 157/87 H Blood Pressure [Standing (for 1 minute prior to obtaining)] 158/98 H Blood Pressure Mean 107 Blood Pressure Mean [Lying] 105 Blood Pressure Mean [Sitting (for 1 minute prior to obtaining)] 110 Blood Pressure Mean [Standing (for 1 minute prior to obtaining)] 118 Pulse Ox 100 Oxygen Delivery Method Room Air Room Air 02/01/25 13:08 Temperature Temperature Source Pulse Rate 86 Pulse Rate [Lying] Pulse Rate [Sitting (for 1 minute prior to obtaining)] Pulse Rate [Standing (for 1 minute prior to obtaining)] Respiratory Rate 15 Blood Pressure 160/92 H Blood Pressure [Lying] Blood Pressure [Sitting (for 1 minute prior to obtaining)] Blood Pressure [Standing (for 1 minute prior to obtaining)] Blood Pressure Mean 114 Blood Pressure Mean [Lying] Blood Pressure Mean [Sitting (for 1 minute prior to obtaining)] Blood Pressure Mean [Standing (for 1 minute prior to obtaining)] Pulse Ox 95 Oxygen Delivery Method Room Air Positive well nourished and well developed General Appearance ED: well developed and NAD HEENT Reports moist mucous membranes normocephalic and atraumatic Eyes PERRL and EOMs intact bilaterally Neck full ROM and supple Resp normal respiratory effort and clear to auscultation bilaterally Cardio regular rate, regular rhythm and no murmurs Rate: tachycardic GI non-tender and non-distended Auscultation: normoactive bowel sounds Palpation: soft Back/Spine no CVA tenderness General Back: other FROM Extremity normal to inspection General Extremety ED: Negative for edema, pulses abnormal or tenderness General Extremity: Negative for edema or pulses abnormal Neuro oriented x3, CN's II-XII intact bilaterally and no sensory deficits noted Sensorium / Orientation: awake and alert Motor Exam: strength 5/5 throughout Psych Mood & Affect: anxious and tearful Skin no rashes or lesions noted and no wounds Heart Score History: Moderately Suspicious Age: >/= 65 years Risk Factors: >/= 3 Risk Factors or History of CAD Score: 5 MDM MDM MDM Narrative Medical decision making narrative: EMS sent a prehospital EKG that showed no STEMI on my interpretation. Acute coronary syndrome is in the differential as is PE, orthostasis, GI symptoms/etiology as the patient states she has had a very poor appetite for weeks related to new rheumatoid arthritis medication, and the patient states that she was having tingling all over and seems quite anxious which could be related as well. D-dimer was sent in addition to basic labs and we did obtained an EKG while we gave the patient aspirin, IV fluids, nitroglycerin. Two-view chest x-ray my interpretation is normal radiology in agreement, and her D-dimer is significantly elevated, whereas the rest of her blood tests including her troponin are normal. She was sent for CT angiography of the chest to evaluate for PE. I reviewed the images and report which I agree with, it was negative for PE or anything else acute. Orthostatics were negative. Her vital signs have improved since she has been observed here, with her tachycardia resolving. EKG is normal, she has had no dysrhythmias while she was here but certainly she could have been having a dysrhythmia before she was here. We observed her until we can get a second troponin measurement it actually went down, for a negative delta. Patient with a heart rate resting in the low 80s, she is asymptomatic, she is able to walk without feeling lightheaded and definitely feels better and more like herself. I spoke with respiratory, we do have Holter monitors available. I am having them place a 48-hour monitor on her, and she can follow-up with cardiology after the weekend. Lab Data Attestation: I reviewed the patient's lab results. Labs: Laboratory Results - last 24 hr 02/01/25 02/01/25 11:13 13:15 WBC 9.3 RBC 4.77 Hgb 12.4 Hct 38.4 MCV 80.5 L MCH 26.0 L MCHC 32.3 RDW Std Deviation 42.4 RDW Coeff of Daphne 14.6 Plt Count 587 H MPV 8.9 Immature Gran % (Auto) 0.800 Neut % (Auto) 72.3 H Lymph % (Auto) 19.8 [place] % (Auto) 4.9 Eos % (Auto) 1.3 Baso % (Auto) 0.9 Absolute Neuts (auto) 6.8 Absolute Lymphs (auto) 1.85 Nucleated RBC % 0 APTT 28.4 D-Dimer Quant (PE/DVT) 3.14 H* Sodium 138 Potassium 3.2 L Chloride 99 Carbon Dioxide 22.4 Anion Gap 16 H BUN 11 Creatinine 0.70 Estim Creat Clear Calc 68.89 Est GFR (MDRD) Non-Af 95 BUN/Creatinine Ratio 15.4 Glucose 141 H Calcium 10.0 Troponin T High Sens 10 Troponin T Hi Sens 2 Hr 9 Radiography Diagnostic Testing: Clinical Impression(s) from Imaging Studies Chest X-Ray 02/01/25 12:00 IMPRESSION: Hyperinflation. The lungs are clear. Reading Location: [facility]-1 Chest CTA 02/01/25 12:30 IMPRESSION: No evidence of pulmonary embolism. Coronary artery calcifications. Minimal scarring at the left lung base. Reading Location: [facility]--1 Rhythm Strip Rhythm Strip: Sinus Tach Rate: 104 Ectopy: None EKG Initial EKG: Attestation: I personally reviewed and interpreted this EKG as follows: Interpretation: Sinus Rhythm and No Acute Injury Pattern Comments: Nml axis & intervals; nml EKG Discharge Plan Triage Chief Complaint: Shortness of Breath ED Provider: Kirby Pritchett Dx/Rx/DC Orders Clinical Impression: Rapid palpitations, Lightheadedness, Chest pain Instructions: ED About Arrhythmias, ED Holter Monitor Prescriptions: No Action omeprazole 20 mg capsule,delayed release(DR/EC) 20 mg PO DAILY Patient Comments: TAKE 1 CAPSULE BY MOUTH EVERY DAY fexofenadine-pseudoephedrine [Allie-D 12 Hour] 60-120 mg tablet extended release 12 hr 1 tab PO DAILY PRN (Reason: allergy symptoms) leflunomide 10 mg tablet 10 mg PO DAILY aspirin [Adult Low Dose Aspirin] 81 mg tablet,delayed release (DR/EC) 81 mg PO DAILY lisinopril 20 mg tablet 20 mg PO DAILY biotin 1 mg capsule 1 mg PO DAILY cholecalciferol (vitamin D3) 50 mcg (2,000 unit) capsule 50 mcg PO DAILY mecobalamin (vitamin B12) 1,000 mcg lozenge 1,000 mcg PO DAILY Rx Instructions: allow to dissolve in mouth OR may chew lightly before swallowing alendronate 70 mg tablet 70 mg PO ALLAN Primary Care Provider: Dimitry Odom Referrals: Dimitry Odom MD [Primary Care Provider] - Nathaniel Lieberman MD [Med Staff - Active Staff] - As soon as possible Print Language: Kinyarwanda Disposition Disposition: Home, Self Care
[2025-02-01 11:37] LABS: Absolute Lymphocyte Count 1.85 X10^3/uL (0.83-4.51); Absolute Neutrophil Count 6.8 X10^3/uL (2.0-7.7); Basophil# 0.08 X10^3/uL; Basophil% 0.9 % (0-1); Eosinophil# 0.12 X10^3/uL; Eosinophils% 1.3 % (0-5); Hematocrit 38.4 % (37-47); Hemoglobin 12.4 g/dL (12.0-15.0); Lymphocyte # 1.85 X10^3/ul (0.83-4.51); Lymphocyte % 19.8 % (19-41); Mean Corp Hgb Conc 32.3 g/dL (32-36); Mean Corpuscular Volume 80.5 fL (81-99); Mean Platelet Vol. 8.9 fl (6.2-12.0); Monocyte# 0.46 X10^3/uL; Monocyte% 4.9 % (0-10); NRBC Flagged by Analyzer 0 % (0-5); Neutrophil # 6.75 X10^3/uL (2.7-7.7); Neutrophil % 72.3 % (47-70); Platelet Count 587 K/mm3 (150-450); RBC Distribution Width CV 14.6 % (11.6-14.6); RBC Distribution Width SD 42.4 fl (35.1-43.9); Red Blood Count 4.77 M/mm3 (4.2-5.4); White Blood Count 9.3 K/mm3 (4.4-11.0)
[2025-02-01 11:56] LABS: Anion Gap 16 (5-15); BUN 11 mg/dL (4-19); BUN/Creat Ratio 15.4 RATIO (10-20); Carbon Dioxide 22.4 mmol/L (21.0-32.0); Chloride 99 mmol/L (98-108); EST Glomerular Filtration Rate 95 (>60); Estimated Creatinine Clearance 68.89 ml/min (50-250); Glucose 141 mg/dL (70-99); Potassium 3.2 mmol/L (3.3-5.1); Sodium Level 138 mmol/L (133-145); Troponin T High Sensitivity 10 ng/L (<=14)
[2025-02-01 11:57] LABS: Partial Thromboplast Time 28.4 Seconds (24.1-36.2)
--- NOTE | 2025-02-01 12:00 | RAD_ITS ---
PROCEDURE: CHEST PA AND LATERAL 02/01/2025 REASON FOR EXAM: CHEST PAIN TECHNIQUE: Frontal and lateral views of the chest. COMPARISON: Prior study dated June 12, 2020. FINDINGS: Hardware: EKG electrodes are seen. Heart: The heart size is normal. Mediastinum: The mediastinal contour is unremarkable. Lungs: Hyperinflation. The lungs are clear. Bones: Degenerative changes are identified within the thoracic spine. RAD/Chest PA and Lateral IMPRESSION: Hyperinflation. The lungs are clear. Reading Location: [place] [id number]
[2025-02-01 12:09] LABS: D-Dimer Quantitative (DVT/PE) 3.14 FEU/ug/m (0.27-0.49)
[2025-02-01] MEDS: Aspirin 81 MG TAB.CHEW 324 MG PO (12:18)
[2025-02-01] MEDS: 0.9% Normal Saline (1000mL) 1,000 ML 999 ML IV (12:19)
--- NOTE | 2025-02-01 12:30 | CT_ITS ---
PROCEDURE: CTA CHEST W/WO CONTRAST 02/01/2025 REASON FOR EXAM: SOB, CP, ELEVATED D-DIMER TECHNIQUE: CTA axial imaging of the chest with intravenous contrast. Multiplanar and multisequence images were obtained. PATIENT PREPARATION: Per protocol CONTRAST: Isovue-300 VOLUME: 100 mL One or more dose reduction techniques were used (e.g., Automated exposure control, adjustment of the mA and/or kV according to patient size, use of iterative reconstruction technique). RADIATION DOSE SUMMARY: CTDlvol: 9 mGy DLP: 379.03 mGycm . COMPARISON: Prior chest radiograph done earlier in the day. FINDINGS: Hardware: None Lymph nodes: Small lymph nodes are seen in both axilla. Largest lymph node in the left axilla measures 8.2 mm. No mediastinal lymph nodes. No hilar lymph nodes. Heart: The heart is nonenlarged. Coronary artery calcifications seen. Thoracic Aorta: No thoracic aortic aneurysm or dissection. Pulmonary Vessels: No evidence of pulmonary embolism. Lungs and Airways: Minimal linear scarring at the left lung base. Pleura: No pleural effusion. Upper Abdomen: Small cysts are seen in the upper pole of the left kidney. Bones: Degenerative changes of the thoracic spine. CT/CTA Chest W/WO Contrast IMPRESSION: No evidence of pulmonary embolism. Coronary artery calcifications. Minimal scarring at the left lung base. Reading Location: [place] [id number]
[2025-02-01 12:48] VITALS: BP 154/81; BP 157/87; BP 158/98; PULSE 100; PULSE 84; PULSE 94
[2025-02-01 13:08] VITALS: BP 160/92; PULSE 86; RESP 15; O2SAT 95
[2025-02-01 13:46] LABS: Troponin T High Sens 2 HR 9 ng/L (<=14)
[2025-02-01 14:44] VITALS: BP 158/81; PULSE 88; RESP 20; TEMP 36.6; O2SAT 97
== END 2025-02-01 14:45 | disposition home or self-care (01) ==
PROVIDERS: Emergency Provider Emergency Medicine; PCP Family Medicine; Visit Provider Emergency Medicine
DX: R00.2 Palpitations (principal); R07.9 Chest pain, unspecified; R06.02 Shortness of breath; I25.10 Atherosclerotic heart disease of native coronary artery without angina pectoris; R42 Dizziness and giddiness; R00.0 Tachycardia, unspecified; I10 Essential (primary) hypertension; G47.33 Obstructive sleep apnea (adult) (pediatric); R10.9 Unspecified abdominal pain; M17.0 Bilateral primary osteoarthritis of knee; Z87.891 Personal history of nicotine dependence; Z79.82 Long term (current) use of aspirin; Z79.899 Other long term (current) drug therapy; Z95.5 Presence of coronary angioplasty implant and graft
CPT/HCPCS: 71046; 71275; 80048; 84484; 85025; 85379; 85730; 93005; 96360; 96361; 99285; Q9967; A4216

== ENCOUNTER → 2025-02-06 | Outpatient (CLI) | payer MEDICARE, MEDICAID, SELFPAY ==
[2025-02-06 19:02] LABS: Pro- Brain NATRIURETIC PEPTIDE 419 pg/mL (<=900)
== END | disposition home or self-care (01) ==
LOC: LAB 15:49
PROVIDERS: PCP Family Medicine; Referring Provider Nurse Practitioner Family; Visit Provider Nurse Practitioner Family
DX: R06.00 Dyspnea, unspecified (principal)
CPT/HCPCS: 36415; 83880

== ENCOUNTER → 2025-03-12 | Outpatient (CLI) | payer MEDICARE, MEDICAID, SELFPAY | END | disposition home or self-care (01) | LOC: PSN 14:02 | PROVIDERS: PCP Family Medicine; Referring Provider Nurse Practitioner Family; Visit Provider Nurse Practitioner Family | DX: R00.2 Palpitations (principal) | CPT/HCPCS: 93225; 93226 ==

== ENCOUNTER → 2025-03-21 | Outpatient (CLI) | payer MEDICARE, MEDICAID, SELFPAY ==
--- NOTE | 2025-03-21 07:24 | ECHOCS_ITS ---
Reason For Study Reason For Study: Dyspnae/SOB Procedure This was a 2D Doppler, Color Flow transthoracic echocardiogram. The study was technically difficult. Contrast injection was performed. Exam performed in department. Left Ventricle Normal LV size. The left ventricular ejection fraction is 70 %. Stage 1 diastolic dysfunction. No regional wall motion abnormalities noted. Right Ventricle Normal RV size. Normal systolic function. Atria Normal left atrium. Normal right atrium. Mitral Valve Normal mitral valve. Tricuspid Valve Normal tricuspid valve. Aortic Valve Trisinus/trileaflet aortic valve. Pulmonic Valve Normal pulmonic valve. Great Vessels Normal aortic root. The pulmonary artery is normal size. Inferior vena cava collapse with respiration. Pericardium/Pleural No pericardial effusion. Medication 22 gauge I.V. with prn adaptor inserted into left arm. Diluted definity 3ml given slow IV push to enhance endocardial definition. MMode/2D Measurements & Calculations LVIDd: 3.7 cm IVSd: 0.89 cm Ao root diam: 3.5 cm LVIDs: 2.7 cm LVPWd: 1.2 cm RVDd: 3.3 cm FS: 26.0 % LAV(MOD-bp): 44.9 ml LVAd ap4: 36.3 cm2 SV(MOD-sp4): 84.3 ml LAV(MOD-bp) Indexed: 24.7 ml/m2 LVLd ap4: 8.4 cm SI(MOD-sp4): 46.4 ml/m2 LAV(MOD-sp2): 55.2 ml EDV(MOD-sp4): 125.0 ml LAV(MOD-sp4): 34.4 ml EDV(sp4-el): 132.8 ml LVAs ap4: 18.3 cm2 LVLs ap4: 6.9 cm ESV(MOD-sp4): 40.7 ml ESV(sp4-el): 41.0 ml EF(MOD-sp4): 67.4 % EF(sp4-el): 69.2 % SV(sp4-el): 91.8 ml LA A4 area: 14.4 cm2 LA dimension(2D): 4.3 cm RA A4 area: 11.0 cm2 TAPSE: 1.9 cm Time Measurements MV dec time: 0.19 sec Doppler Measurements & Calculations MV E max arian: 64.2 cm/sec Lat Peak E' Arian: 4.3 cm/sec Med Peak E' Arian: 7.0 cm/sec MV A max arian: 112.1 cm/sec E/E' lat: 14.9 E/E' med: 9.2 MV E/A: 0.57 MV V2 max: 134.4 cm/sec MV P1/2t max arian: 74.7 cm/sec Ao V2 max: 161.6 cm/sec MV max P.2 mmHg MV P1/2t: 68.0 msec Ao max P.5 mmHg MV V2 mean: 63.3 cm/sec MV dec slope: 321.9 cm/sec2 Ao V2 mean: 112.0 cm/sec MV mean P.0 mmHg MVA(P1/2t): 3.2 cm2 Ao mean P.7 mmHg MV V2 VTI: 25.2 cm Ao V2 VTI: 33.8 cm AV (velocity ratio): 0.75 LV V1 max: 115.2 cm/sec LV V1 max P.3 mmHg LV V1 mean P.2 mmHg LV V1 mean: 86.1 cm/sec LV V1 VTI: 25.2 cm ECHO/Echo Complete W/ Contrast Interpretation Summary Normal LV size. The left ventricular ejection fraction is 70 %. Stage 1 diastolic dysfunction. Contrast injection was performed. Ordering Physician: Deshawn Mascorro Referring Physician: Deshawn Mascorro Performed By: Noah Kaiser RCS
--- NOTE | 2025-03-21 12:24 | STRESSREP ---
Stress Test Report Pharmacologic myocardial perfusion stress test. 65-year-old lady with a history of dyspnea coronary artery disease Resting EKG demonstrates sinus rhythm with a rate of 67 bpm. Resting blood pressure is 148/92 mmHg. 0.4 mg of regadenoson was infused per usual protocol followed by rapid intravenous saline flush injection. Continuous EKG monitoring was performed. The maximum heart rate was 104 bpm which was 67% of max impacted heart rate the maximum workload was 1 metabolic equivalent. At rest there were no ST or T wave changes noted to suggest ischemia and at peak infusion nonspecific ST changes were noted which did not meet the criteria for ischemia. No clinical angina is noted. The final blood pressure was 178/98 mmHg. Myocardial perfusion protocol. 11.5 mCi of technetium 99m sestamibi was injected at rest. 0.4 mg of regadenoson was infused per usual protocol. At peak infusion 34.4 mCi of technetium 99m sestamibi was injected stress images were obtained stress and rest images were reconstructed and compared in the short axis vertical long and horizontal long axis. Gated images were also obtained. Perfusion SPECT analysis: Review of the stress images demonstrate normal uptake of tracer noted in all areas of the myocardium. The resting images similar demonstrated normal uptake of tracer noted in all areas of the myocardium. No areas of reversibility are noted to suggest ischemia and no previous infarct is noted. Gated SPECT analysis: The gated ejection fraction is 73%. Conclusion: Normal pharmacologic myocardial perfusion stress test. Preserved ejection fraction.
== END | disposition home or self-care (01) ==
LOC: CVS 07:24
PROVIDERS: PCP Family Medicine; Referring Provider Nurse Practitioner Family; Visit Provider Nurse Practitioner Family
DX: R06.09 Other forms of dyspnea (principal); R06.02 Shortness of breath; I10 Essential (primary) hypertension; Z95.5 Presence of coronary angioplasty implant and graft
CPT/HCPCS: 78452; 93017; 93306; A9500; Q9957; A4216; C8929; J2785

== ENCOUNTER → 2025-05-20 | Outpatient (CLI) | payer MEDICARE, MEDICAID, SELFPAY ==
--- NOTE | 2025-05-20 17:28 | RAD_ITS ---
PROCEDURE: ABD INC DECUB AND/OR ERECT 05/20/2025 REASON FOR EXAM: ABDOMEN PAIN TECHNIQUE: Procedure Code: RADABDMV Modality: DX Procedure: ABD INC DECUB AND/OR ERECT COMPARISON: Prior study dated March 24, 2023. FINDINGS: Bowel gas: Moderate amount of fecal material is seen throughout the colon. Calcifications: No suspicious calcifications. Bones: There are degenerative changes of the spine. Other: RAD/Abd Inc Decub and/or Erect IMPRESSION: Moderate amount of fecal material is seen in the colon. No evidence of obstruc tion. Reading Location: [facility]
== END | disposition home or self-care (01) ==
LOC: LABSPEC 16:39 → MTRAD 16:54
PROVIDERS: PCP Family Medicine; Referring Provider Family Medicine; Visit Provider Family Medicine
DX: R10.9 Unspecified abdominal pain (principal); R19.7 Diarrhea, unspecified
CPT/HCPCS: 74019; 87086; 87088

== ENCOUNTER → 2025-05-27 | Outpatient (CLI) | payer MEDICARE, MEDICAID, SELFPAY ==
[2025-05-27 12:10] LABS: Hematocrit 35.0 % (37-47); Hemoglobin 11.2 g/dL (12.0-15.0); Immature Granulocytes Count 0.030 X10^3/uL (0.0-0.0); Mean Corp Hgb Conc 32.0 g/dL (32-36); Mean Corpuscular Volume 83.7 fL (81-99); Mean Platelet Vol. 10.0 fl (6.2-12.0); NRBC Flagged by Analyzer 0 % (0-5); Platelet Count 558 K/mm3 (150-450); RBC Distribution Width CV 17.0 % (11.6-14.6); RBC Distribution Width SD 51.6 fl (35.1-43.9); Red Blood Count 4.18 M/mm3 (4.2-5.4); White Blood Count 8.6 K/mm3 (4.4-11.0)
--- OUTSIDE RECORDS SUMMARY | 2025-05-27 12:15 | XMS RPT_ITS | CCD ---
Author Organization [facility] Providers Care Operations And Intelligence Assistant Name Role Phone Jenniffer Alexander Unavailable Unavaila ble Alexander Jenniffer Brown Unavailable Unavaila ble Ranney, Christopher Unavailable Unavailable Ranney, Christopher Unavailable Unavailable AlexanderJenniffer Brown Unavailable Unavaila ble Ranney, Christopher Unavailable Unavailable AlexanderAnabelJenniffer Brown Unavailable Unavaila ble Ranney, Christopher Unavailable Unavailable Ranney, Christopher Unavailable Unavailable Alexander Jenniffer Brown Unavailable Unavaila ble Ranney, Christopher Unavailable Unavailable UNKNOWN, PROVIDER Unavailable Unavailable Ranney, Christopher Unavailable Unavailable AlexanderJenniffer Brown Unavailable Unavaila ble Ranney, Christopher Unavailable Unavailable Alexander, Jenniffer Brown Unavailable Unavaila ble Ranfredy, Christopher Unavailable Unavailable Henrry Odmo MD Primary Care Provider Dr. Duane Odom Primary Care Provider [phone] Dr. Duane Odom Referring Provider Roof MARKET DEVELOPMENT ANALYST, MARKET DEVELOPMENT ANALYST-Luly Baires Attending Provider Henrry Odom MD Primary Care Provider Henrry Odom MD Primary Care Provider Henrry Odom MD Primary Care Provider Dr. Duane Odom Primary Care Provider Dr. Duane Odom Referring Provider [place], [place] Anna Martinez Attending Provider Dr. Otf Richard Admit Provider [phone] Otf Richard Referring Provider Dr. Otf Richard Other Provider Dr. Stephanie Martin Attending Provider Dr. Stephanie Martin Other Provider Dr. Gerald Balbuena Other Provider Dr. Ct Claire Attending Provider Dr. Ct Claire Other Provider Dr. Vicente Barrow Attending Provider Danial, Dr. Zhang Other Provider Dr. Be Kulkarni Attending Provider Dr. Be Kulkarin Other Provider Dr. Duane Odom Primary Care Provider Dr. Otf Richard Admit Provider Dr. Otf Richard Other Provider [phone] Dr. Gerald Balbuena Other Provider [phone]([facility])[phone] Claire Attending Provider Dr. Ct Claire Other Provider Dr. Matty Graves Attending Provider Dr. Toro Baires Chi Referring Provider Dr. Duane Odom Primary Care Provider Dr. Otf Richard Admit Provider Dr. Otf Richard Other Provider Dr. Duane Odom Primary Care Provider Dr. Otf Richard Admit Provider Dr. Otf Richard Other Provider Dr. Vicente Barrow Attending Provider Danial, Dr. Zhang Other Provider Dr. Be Kulkarni Attending Provider Dr. Be Kulkarni Other Provider Dr. Matty Graves Attending Provider Dr. Toro Baires Chi Referring Provider Ilene CRUZ, Henrry Torrez Primary Care Provider Ilene CRUZ, Dr. Moraes Primary Care Provider Ilene CRUZ, Dr. Moraes Attending Provider Ilene CRUZ, Dr. Moraes Referring Provider Yarely CRUZ, Dr. Orr Emergency Provider Yarely CRUZ, Dr. Orr Attending Provider Yarely CRUZ, Dr. Orr Referring Provider [facility] MARKET DEVELOPMENT ANALYST-C, Deshawn Attending Provider Ilene CRUZ, Dr. Moraes Primary Care Provider Yarely CRUZ, Dr. Orr Attending Provider Ilene CRUZ, Dr. Moraes Referring Provider [facility] MARKET DEVELOPMENT ANALYST-C, [facility] Referring Provider Georges CRUZ, Shelly Unavailable HENRRY ODOM Primary Care Unavailabl e SU, SHELLY Referring Unavailable KELLY LOWE Referring Unavailable ILENE, DAVIANER B Primary Care Unavailabl e ILENE, DAVIANER B Primary Care Unavailabl e SU, SHELLY Referring Unavailable RANFREDY, CHRISTBOBER B Primary Care Unavailabl e ILENE, DAVIANER B Referring Unavailabl e Roof MARKET DEVELOPMENT ANALYST-C, Deshawn H Other Provider Star CRUZ, Dr. Starr Attending Provider GEORGES, SHELLY Referring Unavailable ILENE, DAVIANER B Primary Care Unavailabl e SU, SHELLY Attending Unavailable GEORGES, SHELLY Referring Unavailable RANFREDY, CHRISTBOBER B Primary Care Unavailabl e KELLY LOWE Attending Unavailable GEORGES, SHELLY Referring Unavailable ILENE, DAVIANER B Primary Care Unavailabl e KELLY LOWE Attending Unavailable ILENE, CHRISTBOBER B Primary Care Unavailabl e SU, SHELLY Attending Unavailable SHELLY SU Referring Unavailable HENRRY ODOM B Primary Care Unavailabl e [facility] Unavailable Roof MARKET DEVELOPMENT ANALYST, Deshawn Baires Attending Unavailable Roof MARKET DEVELOPMENT ANALYST, Deshawn H Referring Unavailable Ilene, [facility] Unavailable Henrry Odom Attending Unavailable Ilene, Henrry Referring Unavailable Ilene, Henrry Referring Unavailable [place], [facility] Unavailable Roof MARKET DEVELOPMENT ANALYST, Deshawn Baires Attending Unavailable Roof MARKET DEVELOPMENT ANALYST, Deshawn Baires Attending Unavailable Ilene, [facility] Unavailable Ilene, Henrry Referring Unavailable Roof MARKET DEVELOPMENT ANALYST, Deshawn Baires Consulting Unavailable Matty Graves Attending Unavailable Ilene, [facility] Unavailable Roof MARKET DEVELOPMENT ANALYST, Deshawn H Referring Unavailable Ranfredy, Davianer Referring Unavailable Ranfredy, [facility] Unavailable Roof MARKET DEVELOPMENT ANALYST, Deshawn Baires Attending Unavailable Ilene, Henrry Referring Unavailable Ranfredy, [facility] Unavailable Henrry Odom Attending Unavailable Roof MARKET DEVELOPMENT ANALYST, Deshawn H Referring Unavailable Ilene, [facility] Unavailable Roof MARKET DEVELOPMENT ANALYST, Deshawn Baires Attending Unavailable Kirby Pritchett Attending Unavailable [place], Correll Primary Care Unavailable Allergies Allergy Classification Reported Allergen(s) Allergy Type Date of Onset Reaction(s) Facility (20 sources) Mold Extract; Translations: [MOLD] Drug Allergy 9 Other: See Comments [facility] (20 sources) Pollen; Translations: [POLLEN] Propensity to adverse reactions 0 Itching [facility] (20 sources) inFLIXimab; Translations: [INFLIXIMAB-DYY B] Drug Allergy 5 Rash [facility] (5 sources) Seasonal Allergies: Uncoded; Translations: [Seasonal Allergies: Uncoded] Allergy to substance 5 sinus issues [facility] Medications Current Medications Medication Drug Class(es) Dates Sig (Normalized) Sig (Original) alendronic acid 70 mg oral tablet (5 sources) Bisphosphonate Start: 02-01-2025 Alendronate 70 mg tablet Active 70 mg PO MEJIA February 01, 2025 12:00am Ashwagandha Root Extract (14 sources) Start: 05-07-2021 take 900 mg by mouth once daily Ashwagandha Root Extract Active 900 MG PO DAILY May 07, 2021 11:05am Start: 05-07-2021 End: 02-25-2022 take 900 mg by mouth once daily Hersona Root Extract Discontinued 900 MG PO DAILY May 06, 2021 11:00pm February 25, 2022 2:14pm Start: 05-07-2021 End: 02-25-2022 take 900 mg by mouth once daily Ashjeffa Root Extract Discontinued 900 MG PO DAILY May 07, 2021 12:00am February 25, 2022 3:14pm aspirin 81 mg delayed release oral tablet (20 sources) Platelet Aggregation Inhibitor, Nonsteroidal Anti-inflammatory Drug Start: 02-01-2025 Aspirin (Adult Lo w Dose Aspirin) 81 mg tablet,delayed release (DR/EC) Active 81 mg PO DAILY February 01, 2025 12:00am Start: 04-11-2023 End: 02-01-2025 take 1 capsule by mouth twice daily Aspirin 81 mg capsule Discontinued 81 mg PO TWICE A DAY 60 30 0 April 11, 2023 12:00am February 01, 2025 1:09pm Take 81 mg aspirin twice daily for 4 weeks postoperatively for DVT prophylaxis. Start: 03-02-2023 End: 04-11-2023 Aspirin (Adult Low Dose Aspi rin) 81 mg tablet,delayed release (DR/EC) Discontinued 81 mg PO DAILY March 02, 2023 12:00am April 11, 2023 11:42am BLOOD THIN Start: 12-31-2022 End: 02-02-2023 take 1 tablet by mouth twice daily at mealtime Aspirin 81 mg tablet,chewable Discontinued 81 mg PO TWICE DAILY WITH MEALS December 31, 2022 2:54pm February 02, 2023 8:47am blood thinner Take 81 mg aspirin twice daily for 4 weeks postoperatively for DVT prophylaxis. Start: 02-25-2022 End: 12-31-2022 Aspirin (Adult Low Dose Aspi rin) 81 mg tablet,delayed release (DR/EC) Discontinued 81 mg PO DAILY February 25, 2022 12:00am December 31, 2022 1:53pm Check with primary doctor Start: 05-07-2021 End: 06-29-2021 take 1 tablet by mouth once daily Aspirin 81 MG tablet,chewable Discontinued 81 mg PO DAILY May 07, 2021 11:09am June 29, 2021 12:03pm On Hold: Resume on 06/24/21. Start: 12-03-2020 End: 05-07-2021 take 1 tablet by mouth twice daily Aspirin 81 MG tablet,chewable Discontinued 81 mg PO TWICE A DAY 60 0 December 03, 2020 12:00am May 07, 2021 11:09am Start: 05-19-2018 End: 12-03-2020 take 1 tablet by mouth once daily Aspirin 81 MG tablet,chewable Discontinued 81 mg PO DAILY@0800 May 19, 2018 12:00am December 03, 2020 9:49am heart health Comment on above: Take 81 mg by mouth once daily. atorvastatin 40 mg oral tablet (1 source) HMG-CoA Reductase Inhibitor Start: 2 take 40 mg by mouth at bedtime Atorvastatin Active 40 MG PO AT BEDTIME March 29, 2022 12:00am biotin 1 mg oral capsule (20 sources) Start: 5 take 1 capsule by mouth once daily Biotin 1 mg capsule Active 1 mg PO DAILY February 01, 2025 12:00am Start: 02-25-2022 take 2500 ug by mouth once ayesha ly Biotin Active 2500 MCG PO DAILY February 25, 2022 12:00am biotin 5,000 mcg subl Dissolve 1 tablet under the tongue once daily. Active Comment on above: Dissolve 1 tablet un simran the tongue once daily. cholecalciferol 0.05 mg oral capsule (20 sources) Vitamin D Start: 02-02-20 take 1 capsule by mouth once daily Cholecalciferol (Vitamin D3) 50 mcg (2,000 unit) capsule Active 50 ug PO DAILY February 01, 2025 12:00am take 1 capsule by mouth once ayesha ly Cholecalciferol, Vitamin D3, (VITAMIN D-3) 50 mcg (2,000 unit) cap Take 4,000 Units by mouth once daily. Active ergocalciferol 1.25 mg oral capsule (20 sources) Provitamin D2 Compound Start: 11-19-2022 take 1 capsule by mouth every week ergocalciferol 50,000 unit capsule (VITAMIN D2, DRISDOL) Indications: Vitamin D deficiency TAKE 1 CAPSULE BY MOUTH ONE TIME PER WEEK 12 capsule 3 11/19/2022 Active Start: 07-20-2021 End: 12-24-2021 take 1 capsule by mouth every week ergocalciferol 50,000 unit capsule (VITAMIN D2, DRISDOL) Indications: Vitamin D deficiency TAKE 1 CAPSULE BY MOUTH ONE TIME PER WEEK 12 capsule 3 12/24/2021 Active Start: 12-03-2020 End: 02-01-2025 Ergocalciferol (Vitamin D2) 50,000 UNIT capsule Discontinued 80524 U PO [email or web address] June 29, 2021 4:39pm February 01, 2025 1:10pm supplement Start: 06-11-2020 End: 12-03-2020 Ergocalciferol (Vitamin D2) 1,250 MCG capsule Discontinued 1250 ug PO MEJIA June 11, 2020 12:00am December 03, 2020 11:23am Comment on above: TAKE 1 CAPSULE BY [facility] ONE TIME PER WEEK 12 hr fexofenadine hydrochloride 60 mg / pseudoephedrine hydrochloride 120 mg extended release oral tablet (5 sources) alpha-Adrenergic Agonist, Histamine-1 Receptor Antagonist Start: take 1 tablet by mouth every twelve hours as needed Fexofenadine-Pseu doephedrine (Allie-D 12 Hour) 60-120 mg tablet extended release 12 hr Active 1 {tbl} PO DAILY as needed for allergy symptoms February 01, 2025 12:00am inFLIXimab-dyyb 100 mg injection (16 sources) Tumor Necrosis Factor Herberth Start: 2 Infliximab-Dyyb (Inflectra) 100 mg recon soln Active MG .Route February 25, 2022 12:00am Q2 months for RA Start: 06-19-2021 inFLIXimab-dyy b (INFLECTRA) 100 mg injection Indications: Rheumatoid arthritis of multiple sites without organ or system involvement with positive rheumatoid factor (HCC) Inflectra IV 5mg/kg/dose week 0,2,6 and then every 8 weeks. Please draw CBC, CMP, ESR, CRP every 4 months 1 Each 3 06/19/2021 Active Comment on above: Inflectra IV 5mg/kg/ dose week 0,2,6 and then every 8 weeks. Please draw CBC, CMP, ESR, CRP every 4 months leflunomide 20 mg oral tablet (20 sources) Antirheumatic Agent Start: 5 take 1 tablet by mouth once daily leflunomide (ARAVA) 20 mg tablet Take 1 tablet by mouth once daily. 90 tablet 04/11/2025 Active Start: 10-24-2024 End: 02-18-2025 take 1 tablet by mouth once daily Leflunomide 10 mg tablet Active 10 mg PO DAILY February 01, 2025 12:00am Mecobalamin (Vitamin B12) 1,000 mcg lozenge (5 sources) Start: 02-01-2025 take 1000 ug by mouth once daily Mecobalamin (Vitamin B12) 1,000 mcg lozenge Active 1000 ug PO DAILY February 01, 2025 12:00am allow to dissolve in mouth OR may chew lightly before swallowing MEDICATION, NON-DATABASE (20 sources) take 2 capsules by mouth once daily MEDICATION, NON-DATABASE Take 2 capsules by mouth once daily. MORINGA Active mv-mn/folic ac/calcium/vit K1 (WOMEN'S 50 PLUS MULTIVITAMIN ORAL) (20 sources) take 1 tablet by mouth once daily before mealtime mv-mn/folic ac/calcium/vit K1 (WOMEN'S 50 PLUS MULTIVITAMIN ORAL) Take 1 tablet by mouth once daily. Active take 1 tablet by shady th once daily before mealtime mv-mn/folic ac/calcium/vit K1 (WOMEN'S 5 0 PLUS MULTIVITAMIN ORAL) Take 1 tablet by mouth once daily. 0 Active Comment on above: Take 1 tablet by shady th once daily. omeprazole 20 mg delayed release oral capsule (20 sources) Proton Pump Inhibitor Start: take 1 capsule by mouth once daily Omeprazole 20 mg capsule,delayed release(DR/EC) Active 20 mg PO DAILY March 02, 2023 12:00am GERD Comment on above: Take 20 mg by mouth once daily. OTC NUTRITIONAL SUPPLEMENT (20 sources) OTC NUTRITIONAL SUPPLEMENT Take 1 Cap-Full by mouth once daily. Multi-GI 5 PO one capful daily Active OTC NUTRITIONAL SUPPLEMENT Take 1 Cap-Full by mouth once daily. Multi-GI 5 PO one capful daily 0 Active Comment on above: Take 1 Cap-Full by m outh once daily. Multi-GI 5 PO one capful daily polysaccharide iron complex 150 mg oral capsule (2 sources) Start: 02-25-2022 Polysaccharide Iron Complex (Ferrex 150) 150 mg iron capsule Active 150 MG PO DAILY February 25, 2022 12:00am predniSONE 5 mg oral tablet (20 sources) Start: 11-15-2024 End: 02-18-2025 predniSONE (DELTASONE) 5 mg tablet Take 3 tablets for 1 week, 2 tabs for 1 week, 1 tab for 1 week, then stop 42 tablet 02/18/2025 Active End: 11-15-2024 take 1 tablet by mouth once daily predniSONE (DELTASONE) 10 mg tablet Take 10 mg by mouth once daily. 11/15/2024 Discontinued tiZANidine 4 mg oral tablet (20 sources) Central alpha-2 Adrenergic Agonist Start: 03-15-2025 take 1 tablet by mouth every eight hours as needed tiZANidine (ZANAFLEX) 4 mg tablet TAKE 1 TABLET BY MOUTH EVERY 8 HOURS NEEDED. 270 tablet 1 03/15/2025 Active Start: 02-18-2025 End: 03-15-2025 take 1 tablet by mouth every eight hours as needed tiZANidine (ZANAFLEX) 4 mg tablet Take 1 tablet by mouth every 8 hours as needed. Patient takes 4 mg to 6 mg at HS 90 tablet 1 02/18/2025 03/15/2025 Discontinued Start: 03-02-2023 End: 02-01-2025 take 1 tablet by mouth at bedtime Tizanidine 4 mg tablet Discontinued 4 mg PO AT BEDTIME March 02, 2023 12:00am February 01, 2025 1:09pm SLEEP Start: 07-07-2020 End: 02-02-2023 take 1 tablet by mouth at bedtime Tizanidine 4 mg tablet Discontinued 4 mg PO AT BEDTIME July 07, 2020 1:00am February 02, 2023 8:48am muscle relaxer Start: 07-07-2020 End: 02-18-2025 take 1 tablet by mouth at bedtime Tizanidine 4 mg tablet Discontinued 4 mg PO AT BEDTIME July 07, 2020 1:00am February 02, 2023 8:48am Start: 06-11-2020 End: 07-07-2020 take 1 capsule by mouth at bedtime Tizanidine 4 MG capsule Discontinued 4 mg PO AT BEDTIME June 11, 2020 12:00am July 07, 2020 11:24am Comment on above: Take 4 mg by mouth e very 6 hours as needed. vitamin b12 1 mg/ml injectable solution (2 sources) Vitamin B12 Start: 02-26-20 inject 1000 ug by intramuscular injection every month Cyanocobalamin (Vitamin B-12) Active 1000 MCG IM EVERY MONTH February 25, 2022 12:00am Completed/Discontinued Medications Medication Drug Class(es) Dates Sig (Normalized) Sig (Original) acetaminophen 500 mg oral tablet (20 sources) Start: 12-03-2020 End: 02-01-2025 take 2 tablets by mouth every eight hours Acetaminophen 500 mg tablet Discontinued 1000 mg PO EVERY 8 HOURS June 29, 2021 4:39pm February 25, 2022 3:13pm pain Start: 12-03-2020 End: 02-25-2022 take 1000 mg by mouth every eight hours Acetaminophen Discontinued 1000 MG PO EVERY 8 HOURS June 29, 2021 3:39pm February 25, 2022 2:13pm Start: 06-11-2020 End: 12-03-2020 take 1 tablet by mouth every four hours as needed for pain Acetaminophen 500 MG tablet Discontinued 500 mg PO EVERY 4 HOURS NEEDED as needed for Pain Or Fever June 11, 2020 12:00am December 03, 2020 9:49am take 1 tablet by shady th twice daily acetaminophen 650 mg CR tablet Take 650 mg by mouth two times a day. Active Acetaminophen 50 0 mg cap Take by mouth as needed. Active Comment on above: Take by mouth as nee ded. ampicillin 2000 mg injection (20 sources) Penicillin-class Antibacterial Start: 12-31-19 End: 02-03-20 Ampicillin Sodium 2 gram recon soln Discontinued 2 g IV EVERY 6 HOURS December 31, 2022 2:54pm February 02, 2023 8:47am infection stop date 02/09/23 dx: prosthetic joint infection weekly bmp, cbc, and esr. Fax to [phone] Ashwagandha Root Extract 300 mg Capsule (5 sources) Start: 05-07-20 End: 02-26-20 take 1 capsule by mouth once daily as needed Ashwagandha Root Extract 300 mg Capsule Discontinued 900 mg PO DAILY as needed for RELAXATION May 07, 2021 12:00am February 25, 2022 3:14pm cefadroxil 500 mg oral capsule (20 sources) Cephalosporin Antibacterial Start: 04-01-20 End: 02-02-20 take 1 capsule by mouth three times daily Cefadroxil 500 mg capsule Discontinued 500 mg PO THREE TIMES A DAY April 01, 2023 12:00am February 01, 2025 1:12pm UTI Start: 12-22-2022 End: 12-30-2022 take 1 capsule by mouth three times daily Cefadroxil 500 mg Capsule Discontinued 500 mg PO THREE TIMES A DAY December 22, 2022 12:00am December 30, 2022 12:46pm Check with primary doctor diphenhydrAMINE hydrochloride 25 mg oral capsule (2 sources) Histamine-1 Receptor Antagonist Start: 03-13-2025 End: 03-13-2025 take 1 dose by mouth once 50 mg, ORAL, ONCE, 1 dose, On Tue03/13/25 at 1030 Start: 02-27-2025 End: 02-27-2025 take 1 dose by mouth once 50 mg, ORAL, ONCE, 1 dose, O n Tue02/27/25 at 1100 docusate sodium 50 mg / sennosides, skilled nursing 8.6 mg oral tablet (20 sources) Start: 12-31-2022 End: 02-02-2023 Sennosides-Docusate Sodium ( Stool Softener-Stimulant Laxat) 8.6-50 mg tablet Discontinued 2 {tbl} PO TWICE A DAY December 31, 2022 2:54pm February 02, 2023 8:48am constipation Take until first bowel movement, then as needed Start: 06-29-2021 End: 02-25-2022 Sennosides-Docusate Sodium ( Stool Softener-Stimulant Laxat) 8.6-50 mg tablet Discontinued 2 {tbl} PO TWICE A DAY 120 30 0 July 07, 2021 7:02pm February 25, 2022 3:16pm Constipation doxycycline monohydrate 100 mg oral capsule (11 sources) Tetracycline-class Drug Start: 04-11-2023 End: 02-01-2025 take 1 capsule by mouth twice daily Doxycycline Monohydrate 100 mg Capsule Discontinued 100 mg PO TWICE A DAY 18 9 0 April 11, 2023 12:00am February 01, 2025 1:12pm Continue doxycycline for 2 weeks postoperatively DULoxetine 30 mg delayed release oral capsule (16 sources) Serotonin and Norepinephrine Reuptake Inhibitor Start: 02-02-2023 End: 02-01-2025 take 1 capsule by mouth once daily Duloxetine 30 mg Capsule,Delayed Release(Dr/Ec) Discontinued 30 mg PO DAILY 30 30 February 02, 2023 12:00am February 01, 2025 1:12pm STOOL SOFTENER Start: 02-25-2022 take 30 mg by mouth once daily Duloxetine Active 30 MG PO DAILY February 25, 2022 12:00am ferrous sulfate 325 mg oral tablet (20 sources) Start: 12-31-2022 End: 02-01-2025 Ferrous Sulfate (Ferosul) 325 mg (65 mg iron) Tablet Discontinued 325 mg PO 1200,1700 60 30 0 February 02, 2023 12:00am February 01, 2025 1:12pm LOW IRON fexofenadine hydrochloride 60 mg oral tablet (20 sources) Histamine-1 Receptor Antagonist Start: 06-11-2020 End: 02-01-2025 take 1 tablet by mouth once daily as needed Fexofenadine 60 MG tablet Discontinued 60 mg PO DAILY as needed for Allergies June 11, 2020 12:00am February 01, 2025 1:12pm take 1 tablet by mouth once jordon y fexofenadine (ALLIE) 180 mg tablet Take 180 mg by mouth once daily. Active Comment on above: Take 180 mg by mouth once daily. folic acid 1 mg oral tablet (20 sources) Start: 12-13-2022 End: 02-01-2025 take 1 tablet by mouth once daily Folic Acid 1 mg Tablet Discontinued 1 mg PO DAILY December 22, 2022 12:00am February 01, 2025 1:11pm supplement Start: 11-15-2022 take 1 tablet by shady th once daily folic acid 1 mg tablet Indications: Pain in joint, multiple sites Take 1 tablet by mouth once daily. 30 tablet 1 11/15/2022 Active Comment on above: Take 1 tablet by shady th once daily. TAKE 1 TABLET BY SHADY TH EVERY DAY hydroxychloroquine sulfate 200 mg oral tablet (20 sources) Antimalarial, Antirheumatic Agent Start: 2020 End: 2021 take 1 tablet by mouth twice daily Hydroxychloroquine 200 mg tablet Discontinued 200 mg PO TWICE A DAY May 07, 2021 12:00am February 25, 2022 3:14pm RA Start: 06-11-2020 End: 03-20-2021 take 1 tablet by mouth twice daily at mealtime Hydroxychloroquine 200 MG tablet Discontinued 200 mg PO TWICE DAILY WITH MEALS June 11, 2020 12:00am March 20, 2021 3:05pm RA lisinopril 10 mg oral tablet (20 sources) Angiotensin Converting Enzyme Inhibitor Start: 04-19-2022 End: 12-22-2022 take 20 mg by mouth once daily Lisinopril Active 20 MG PO DAILY December 22, 2022 1:02pm Start: 07-09-2020 take 1 tablet by shady once daily lisinopril (ZESTRIL) 20 mg tablet Take 20 mg by mouth once daily. 07/09/2020 Active Start: 07-09-2020 End: 02-01-2025 take 2 tablets by mouth once daily Lisinopril 10 mg tablet Discontinued 20 mg PO DAILY December 22, 2022 2:02pm February 01, 2025 1:10pm blood pressure Start: 07-09-2020 End: 12-22-2022 take 1 tablet by mouth once daily Lisinopril 10 mg tablet Discontinued 0 .ROUTE .COMPLEX 90 3 April 19, 2022 3:05pm December 22, 2022 2:02pm TAKE 1 TABLET BY MOUTH EVERY DAY Comment on above: Take 10 mg by mouth once daily. Take 20 mg by mouth once daily. meloxicam 7.5 mg oral tablet (11 sources) Nonsteroidal Anti-inflammatory Drug Start: 04-11-20 End: 02-02-20 take 1 tablet by mouth twice daily Meloxicam 7.5 mg Tablet Discontinued 7.5 mg PO TWICE A DAY 60 30 0 April 11, 2023 12:00am February 01, 2025 1:11pm Do not take any other nonsteroidal anti-inflammatories while using meloxicam/Mobic. methotrexate 2.5 mg oral tablet (7 sources) Folate Analog Metabolic Inhibitor Start: 12-22-19 End: 02-24-20 23 take 6 tablets by mouth every week methotrexate 2.5 mg tablet Indications: Pain in joint, multiple sites TAKE 6 TABLETS BY MOUTH ONE TIME A WEEK. DIRECTED. 72 tablet 1 12/21/2022 02/23/2023 Discontinued (Course of therapy completed) Start: 11-15-2022 End: 11-22-2022 take 6 tablets by mouth every week methotrexate 2.5 mg tablet Indications: Pain in joint, multiple sites Take 6 tablets by mouth one time a week. as directed. 24 tablet 1 11/22/2022 Active Comment on above: Take [address] [facility] one time a week. as directed. methylPREDNISolone 125 mg injection (2 sources) Corticosteroid Start: 03-13-2025 End: 03-13-2025 125 mg, INTRAVENOUS, ONCE, 1 dose, On Tue03/13/25 at 1030 Start: 02-27-2025 End: 02-27-2025 125 mg, INTRAVENOUS, ONCE, 1 dose, On Tue02/27/25 at 1100 metoprolol tartrate 25 mg oral tablet (19 sources) beta-Adrenergic Herberth Start: 05-19-2018 End: 07-09-2020 Metoprolol Tartrate 25 MG tablet Discontinued 12.5 mg PO TWICE A DAY May 19, 2018 12:00am July 09, 2020 4:04pm heart Start: 05-19-2018 End: 07-09-2020 take 12.5 mg by mouth twice daily Metoprolol Tartrate Discontinued 12.5 MG PO TWICE A DAY May 18, 2018 11:00pm July 09, 2020 3:04pm oxyCODONE hydrochloride 5 mg oral tablet (20 sources) Opioid Agonist Start: 04-11-2023 End: 02-01-2025 take 5-10 mg by mouth every four hours as needed for pain Oxycodone 5 mg Tablet Discontinued 5 - 10 mg PO EVERY 4 HOURS NEEDED as needed for Pain Score 4-10 60 7 0 April 11, 2023 February 01, 2025 1:11pm Status post revision of total replacement of left knee Presence of left artificial knee joint Start: 02-02-2023 End: 04-11-2023 take 1 tablet by mouth every six hours as needed for pain Oxycodone 5 mg Tablet Discontinued 5 mg PO EVERY 6 HOURS NEEDED as needed for Pain Score 4-10 28 7 0 February 02, 2023 April 11, 2023 11:42am Infection of prosthetic knee joint Presence of unspecified artificial knee joint Start: 12-31-2022 End: 02-02-2023 take 5-10 mg by mouth every four hours as needed for pain Oxycodone 5 mg Tablet Discontinued 5 - 10 mg PO EVERY 4 HOURS NEEDED as needed for Pain Score 4-10 30 7 0 December 31, 2022 February 02, 2023 8:48am Infection of prosthetic knee joint Presence of unspecified artificial knee joint Start: 06-29-2021 End: 02-25-2022 take 5-10 mg by mouth every four hours as needed for pain Oxycodone 5 mg Tablet Discontinued 5 - 10 mg PO EVERY 4 HOURS NEEDED as needed for Pain Score 4-10 84 7 0 July 07, 2021 February 25, 2022 3:15pm Status post total left knee replacement Presence of left artificial knee joint Start: 12-03-2020 End: 12-10-2020 take 5-10 mg by mouth every four hours as needed for pain Oxycodone 5 MG tablet Discontinued 5 - 10 mg PO EVERY 4 HOURS NEEDED as needed for Pain Score 4-10 84 7 0 December 03, 2020 December 09, 2020 12:00am December 10, 2020 12:04am Acute postoperative pain of right knee Other acute postprocedural pain pantoprazole 40 mg delayed release oral tablet (20 sources) Proton Pump Inhibitor Start: 12-31-2022 End: 02-02-2023 take 1 tablet by mouth once daily Pantoprazole 40 mg tablet,delayed release (DR/EC) Discontinued 40 mg PO DAILY December 31, 2022 2:54pm February 02, 2023 8:48am stomach riTUXimab 1,000 mg in NaCl 0.9% 640 mL (RITUXAN) (2 sources) Start: 03-13-2025 End: 03-13-2025 1,000 mg, INTRAVENOUS, ONCE, 1 dose, On Tue03/13/25 at 1030, exp 1030 03/14/25 (room temp) - Infuse at rate of 100mg/hr. If no hypotension, increase rate every 30 minutes by 100mg/hr to a maximum rate of 400mg/hr. Refrigerate Start: 02-27-2025 End: 02-27-2025 1,000 mg, INTRAVENOUS, ONCE, 1 dose, On Tue02/27/25 at 1100, Approx Total Volume - Expires: 02/28/25 @ 1055 INITIAL - Initiate infusion at a rate of 50 mg/hr. In the absence of infusion toxicity, increase infusion rate by 50 mg/hr increments every 30 minutes, to a maximum of 400 mg/hr Refrigerate rivaroxaban 10 mg oral tablet (20 sources) Factor Xa Inhibitor Start: 06-29-2021 End: 02-25-2022 take 1 tablet by mouth at dinner Rivaroxaban (Xarelto) 10 mg tablet Discontinued 10 mg PO WITH DINNER 17 17 0 July 07, 2021 7:02pm February 25, 2022 3:15pm Blood thinner 0.9 ml tocilizumab 180 mg/ml prefilled syringe (19 sources) Interleukin-6 Receptor Antagonist Start: 06-11-2020 End: 03-20-2021 Tocilizumab 162 MG/0.9 ML syringe Discontinued 355.6 mg IV Q18D June 11, 2020 12:00am March 20, 2021 3:05pm Start: 06-11-2020 End: 03-20-2021 Tocilizumab Discontinued 355 .6 MG IV Q18D June 10, 2020 11:00pm March 20, 2021 2:05pm traMADol hydrochloride 50 mg oral tablet (19 sources) Opioid Agonist Start: 05-07-2021 End: 05-27-2021 take 1 tablet by mouth every six hours as needed for pain Tramadol 50 mg tablet Discontinued 50 mg PO EVERY 6 HOURS NEEDED as needed for Pain May 07, 2021 12:00am May 27, 2021 12:56pm Problems Active Problems Problem Classification Problem Date Documented Da te Episodic/Chronic Abdominal pain (1 source) Unspecified abdominal pain; Translations: [Unspecified abdominal pain] Onset: Episodic Acute myocardial infarction (20 sources) Myocardial infarction; Translations: [Non-ST elevation (NSTEMI) myocardial infarction] Onset: 6 05-12-2016 Chronic Chronic obstructive pulmonary disease and bronchiectasis (20 sources) Chronic obstructive lung disease; Translations: [Chronic obstructive pulmonary disease, unspecified] Onset: 6 05-12-2016 Chronic Complication of device; implant or graft (20 sources) Prosthetic joint infection; Translations: [Infection and inflammatory reaction due to other internal joint prosthesis, initial encounter] 12-29-2022 Episodic Conditions associated with dizziness or vertigo (5 sources) Lightheadedness; Translations: [Dizziness and giddiness] 02-01-2025 Episodic Coronary atherosclerosis and other heart disease (20 sources) History of non-ST segment elevation myocardial infarction; Translations: [Old myocardial infarction] Onset: 6 Chronic Coronary atherosclerosis and other heart disease (8 sources) Presence of coronary angioplasty implant and graft; Translations: [Percutaneous transluminal coronary angioplasty status] Onset: 6 Episodic Deficiency and other anemia (14 sources) Anemia; Translations: [Anemia, unspecified] 12-31-2022 Episodic Deficiency and other anemia (6 sources) Anemia, unspecified; Translations: [Anemia, unspecified] 02-10-2023 Episodic Deficiency and other anemia (2 sources) Iron deficiency anemia; Translations: [Iron deficiency anemia, unspecified] 02-27-2025 Episodic Deficiency and other anemia (1 source) Iron deficiency anemia, unspecified; Translations: [Iron deficiency anemia, unspecified iron deficiency anemia type] Onset: Episodic Disorders of lipid metabolism (20 sources) Hyperlipidemia; Translations: [Hyperlipidemia, unspecified] Chronic Esophageal disorders (19 sources) Gastroesophageal reflux disease; Translations: [Gastro-esophageal reflux disease without esophagitis] 07-07-2021 Chronic Essential hypertension (20 sources) Essential hypertension; Translations: [Essential (primary) hypertension] Onset: Chronic Malaise and fatigue (20 sources) Asthenia; Translations: [Other malaise] 08-10-2021 Episodic Mood disorders (20 sources) Depressive disorder; Translations: [Depression] 12-31-2022 Chronic Nonspecific chest pain (5 sources) Chest pain; Translations: [Chest pain, unspecified] 02-01-2025 Episodic Nutritional deficiencies (20 sources) Vitamin D deficiency; Translations: [Vitamin D deficiency, unspecified] Onset: 5 Chronic Osteoporosis (20 sources) Osteoporosis; Translations: [Age-related osteoporosis without current pathological fracture] 12-31-2022 Chronic Other connective tissue disease (20 sources) History of total knee arthroplasty; Translations: [Presence of left artificial knee joint] 08-10-2021 Chronic Other connective tissue disease (11 sources) History of revision of left total knee arthroplasty; Translations: [Presence of left artificial knee joint] 04-07-2023 Chronic Other connective tissue disease (6 sources) Presence of left artificial knee joint; Translations: [Knee joint replacement] 04-11-2023 Chronic Other connective tissue disease (6 sources) Presence of right artificial knee joint; Translations: [Knee joint replacement] 04-11-2023 Chronic Other connective tissue disease (19 sources) Spasm; Translations: [Other muscle spasm] 08-10-2021 Episodic Other connective tissue disease (16 sources) Fibromyalgia; Translations: [Fibromyalgia] 12-31-2022 Episodic Other gastrointestinal disorders (1 source) Diarrhea; Translations: [Diarrhea, unspecified] 05-08-2025 Episodic Other hematologic conditions (2 sources) Protein electrophoresis abnormal; Translations: [Other specified abnormalities of plasma proteins] 10-24-2024 Episodic Other lower respiratory disease (8 sources) Dyspnea on exertion; Translations: [Other forms of dyspnea] 02-06-2025 Episodic Other lower respiratory disease (2 sources) Other forms of dyspnea; Translations: [Other forms of dyspnea] Onset: 5 Episodic Other non-traumatic joint disorders (5 sources) Multiple joint pain; Translations: [Pain in unspecified joint] Episodic Other non-traumatic joint disorders (1 source) Pain in left knee; Translations: [Pain in joint, lower leg] Episodic Other non-traumatic joint disorders (1 source) Pain in unspecified joint; Translations: [Pain in joint, multiple sites] Onset: 5 Episodic Other upper respiratory disease (19 sources) Allergic rhinitis; Translations: [Allergic rhinitis, unspecified] 07-07-2021 Chronic Pulmonary heart disease (20 sources) Secondary pulmonary hypertension; Translations: [Pulmonary hypertension, secondary] Onset: 6 05-12-2016 Chronic Residual codes; unclassified (17 sources) Obstructive sleep apnea syndrome; Translations: [Obstructive sleep apnea (adult) (pediatric)] 02-25-2022 Chronic Comment on above: Has appointment with Dr. Nicolas in April. Residual codes; unclassified (16 sources) Past history of procedure; Translations: [Other specified postprocedural states] 08-10-2021 Episodic Rheumatoid arthritis and related disease (20 sources) Rheumatoid arthritis, unspecified; Translations: [Rheumatoid arthritis] Onset: 7 Resolved: 3 09-22-2018 Chronic Spondylosis; intervertebral disc disorders; other back problems (1 source) Low back pain; Translations: [Low back pain, unspecified back pain laterality, unspecified chronicity, unspecified whether sciatica present] Episodic Substance-related disorders (20 sources) Tobacco dependence in remission; Translations: [Nicotine dependence, unspecified, in remission] Onset: 6 05-12-2016 Chronic Unclassified (2 sources) Rheumatoid arthritis, unspecified / M06.9(ICD-10) Onset: 7 Unclassified (1 source) 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 / Z79.52(ICD-10) Onset: 8 Unclassified (1 source) Other prison (current) drug therapy / Z79.899(ICD-10) Onset: 8 Unclassified (2 sources) Pain in right hand / M79.641(ICD-10) Onset: 7 Unclassified (1 source) Rheumatoid arthritis with rheumatoid factor, unspecified / M05.9(ICD-10) Onset: 8 Unclassified (1 source) Pain in left hand / M79.642(ICD-10) Onset: 7 Unclassified (1 source) Pain in right wrist / M25.531(ICD-10) Onset: 7 Unclassified (1 source) Pain in left wrist / M25.532(ICD-10) Onset: 7 Unclassified (1 source) Fibromyalgia / M79.7(ICD-10) Onset: 8 Past or Other Problems Problem Classification Problem Date Documented Date Episodic/Chronic Cardiac dysrhythmias (10 sources) Palpitations - rapid; Translations: [Palpitations] Onset: 02-06-2025 02-01-2025 Episodic Genitourinary symptoms and ill-defined conditions (3 sources) Increased frequency of urination; Translations: [Frequency of micturition] Onset: 11-15-2024 11-15-2024 Episodic Infective arthritis and osteomyelitis (except that caused by tuberculosis or sexually transmitted disease) (20 sources) Infective arthritis; Translations: [Pyogenic arthritis, unspecified] Onset: 02-23-2023 08-10-2021 Episodic Other aftercare (20 sources) Taking high risk medication; Translations: [Other intermodal owner operator truck driver (current) drug therapy] Onset: 08-21-2018 08-21-2018 Episodic Other aftercare (2 sources) Other intermodal owner operator truck driver (current) drug therapy; Translations: [High risk medication use] Onset: 08-21-2018 Episodic Other connective tissue disease (8 sources) Fibromyalgia; Translations: [Myalgia and myositis, unspecified] Onset: 11-15-2024 02-10-2023 Episodic Other hematologic conditions (1 source) Other specified abnormalities of plasma proteins; Translations: [Abnormal SPEP] Onset: 10-24-2024 Episodic Other lower respiratory disease (1 source) Dyspnea, unspecified; Translations: [Dyspnea, unspecified] Onset: 02-12-2025 Episodic Other lower respiratory disease (1 source) Shortness of breath; Translations: [Shortness of breath] Onset: 02-07-2025 Episodic Residual codes; unclassified (20 sources) Family history of ischemic heart disease; Translations: [Family history of ischemic heart disease and other diseases of the circulatory system] Onset: 05-12-2016 05-12-2016 Episodic Unclassified (1 source) Pain in right hand; Translations: [Pain in right hand] Onset: 06-28-2017 Results Test Name Value Interpretation Reference Range Facility Urine Cultureon 05-23-2025 [facility] Order Date: 05/20/25 Order Info: 630-4 - CUUR #1 POSSIBLE PROTEUS SPECIES; Below infection level. #2 Below infection level. Gram negative lakshmi [place] Count <1000 Mixed Gram Pos Gram Neg Org Mixed Gram Pos Gram Neg Org MIXC Mixed contaminants. Submit a new specimen if indicated. Normal [facility] Comment on above: Performed By: #### L 300.8000, L501.4021, L300.4310, L500.2500, L100.0100 #### [facility] Laboratory [address] [place], [address] Abd Inc Decub and/or Erecton 05-20-2025 Abd Inc Decub and/or Erect [facility] Imaging Services [address] [place] [address] Abd Inc Decub and/or Erect MR#: [id number] Acct: [id number] Name: FRANCIE MORENO Rep #: [id number] : 1960 F 65 From: Raymon monzon MD PCP: Dr. Henrry Odom MD Status: REG CLI Study: Abd Inc Decub and/or Erect Date of Exam: 05/20 Exam# [id number] Ordering Dr: Henrry Odom PROCEDURE: ABD INC DECUB AND/OR ERECT 05/20/2025 REASON FOR EXAM: ABDOMEN PAIN TECHNIQUE: Procedure Code: RADABDMV Modality: DX Procedure: ABD INC DECUB AND/OR ERECT COMPARISON: Prior study dated March 24, 2023. FINDINGS: Bowel gas: Moderate amount of fecal material is seen throughout the colon. Calcifications: No suspicious calcifications. Bones: There are degenerative changes of the spine. Other: RAD/Abd Inc Decub and/or Erect IMPRESSION: Moderate amount of fecal material is seen in the colon. No evidence of obstruction. Reading Location: [place] [address] CC: Dr. Henrry Odom MD Icu Rn: Signed [facility] 04-11-2025 [facility] Telephone (RHBATH) FRANCIE MORENO ([id number]) 1960 F Date Time Provider Department 04/11/25 [facility] During your visit today, we recorded the following information about you: Laura Nelson LPN 04/11/2025 2:11 PM Signed Patient left vm stating you increased the Arava 10 mg [...] 02/18/2025 Next Appointment: 05/08/2025 Patient Phone numbers: [phone] (home) Request is for script(s) to be escript to pharmacy. [facility]/pharmacy #[id number] [place] [address] - [address] - [phone] [facility] [phone] [id number] Laura Nelson LPN Allergies As of Date: [...] mg by mouth once daily. - fexofenadine (ALLIE) 180 mg tablet Take 180 mg by mouth once daily. - omeprazole (PRILOSEC) 20 mg capsule Take 20 mg by mouth once daily. Problem List As Of Date 04/11/2025 Noted Resolved Non-ST elevation [place] (NSTEMI) (HCC) [I21.4] 05/12/2016 Status post insertion of drug-eluting stent int*05/12/2016 Tobacco abuse, in remission [F17.201] 05/12/2016 Family history of ischemic heart disease [Z82.4*05/12/2016 Pulmonary hypertension, secondary (HCC) [TXS897*05/12/2016 Chronic obstructive pulmonary disease (HCC) [J4*05/12/2016 High [...] Encounter Status:Closed by [facility] on 04/11/25 [facility] Cardiovascular stress test r eportOrdered By: Matty Graves on 03-21-2025 Study report [facility] Cardiovascular Services [address] [place] [address] MR#: [id number] Acct: [id number] Name: FRANCIE MORENO Rep #: [id number] : 1960 65 From: Matty Graves MD Primary Care: Dr. Henrry Odom MD Status: REG CLI Referring Dr: Deshawn Mascorro NP MARKET DEVELOPMENT ANALYST-C Sex: F C Stress Test Report Pharmacologic myocardial perfusion stress test. 65-year-old lady with a history of dyspnea coronary artery disease Resting EKG demonstrates sinus rhythm with a rate of 67 bpm. Resting blood pressure is 148/92 mmHg. 0.4 mg of regadenoson was infused per usual protocol followed by rapid intravenous saline flush injection. Continuous EKG monitoringwas performed. The maximum heart rate was 104 bpm which was 67% of max impactedheart rate the maximum workload was 1 metabolic equivalent. At rest there were no ST or T wave changes noted to suggest ischemia and at peak infusion nonspecific ST changes were noted which did not meet the criteria for ischemia. No clinical angina is noted. The final blood pressure was 178/98 mmHg. Myocardial perfusion protocol. 11.5 mCi of technetium 99m sestamibi was injected at rest. 0.4 mg of regadenoson was infused per usual protocol. At peak infusion 34.4 mCi of technetium 99m sestamibi was injected stress images were obtained stress and rest images were reconstructed and compared in the short axis vertical long and horizontal long axis. Gated images were also obtained. Perfusion SPECT analysis: Review of the stress images demonstrate normal uptake of tracer noted in all areas of the myocardium. The resting images similar demonstrated normal uptake of tracer noted in all areas of the myocardium. No areas of reversibility are noted to suggest ischemia and no previous infarct is noted. Gated SPECT analysis: The gated ejection fraction is 73%. Conclusion: Normal pharmacologic myocardial perfusion stress test. Preserved ejection fraction. 03/21/25 1227 Date _ Matty Graves MD CC: MARKET DEVELOPMENT ANALYST-C Deshawn Mascorro; Dr. Henrry Odom MD ~ Date Dictated: 03/21/25 1224 Date Transcribed: 03/21/251223 Icu Rn: CO Signed [facility] Work Phone: Echo Complete W/ Contraston 03-21-2025 Echo Complete W/ Contrast [facility] Cardiovascular Services [address] [place] [address] Echo Complete W/ Contrast 03/21/25 0934 MR#: [id number] Acct: [id number] Name: FRANCIE MORENO Rep #: [id number] : 1960 65 From: Matty Graves MD Attending Dr: Deshawn Mascorro, MARKET DEVELOPMENT ANALYST-C Status: REG CLI Ordering Dr: Deshawn Mascorro NP MARKET DEVELOPMENT ANALYST-C Date: 03/21/25 Location: [facility] Sex: F C Admitted: Reason For Study Reason For Study: Dyspnae/SOB Procedure This was a 2D Doppler, Color Flow transthoracic echocardiogram. The study was technically difficult. Contrast injection was performed. Exam performed in department. Left Ventricle Normal LV size. The left ventricular ejection fraction is 70 %. Stage 1 diastolic dysfunction. No regional wall motion abnormalities noted. Right Ventricle Normal RV size. Normal systolic function. Atria Normal left atrium. Normal right atrium. Mitral Valve Normal mitral valve. Tricuspid Valve Normal tricuspid valve. Aortic Valve Trisinus/trileaflet aortic valve. Pulmonic Valve Normal pulmonic valve. Great Vessels Normal aortic root. The pulmonary artery is normal size. Inferior vena cava collapse with respiration. Pericardium/Pleural No pericardial effusion. Medication 22 gauge I.V. with prn adaptor inserted into left arm. Diluted definity 3ml given slow IV push to enhance endocardial definition. MMode/2D Measurements Calculations LVIDd: 3.7 cm IVSd: 0.89 cm Ao root diam: 3.5 cm LVIDs: 2.7 cm LVPWd: 1.2 cm RVDd: 3.3 cm FS: 26.0 % LAV(MOD-bp): 44.9 ml LVAd ap4: 36.3 cm2 SV(MOD-sp4): 84.3 ml LAV(MOD-bp) Indexed: 24.7 ml/m2 LVLd ap4: 8.4 cm SI(MOD-sp4): 46.4 ml/m2 LAV(MOD-sp2): 55.2 ml EDV(MOD-sp4): 125.0 ml LAV(MOD-sp4): 34.4 ml EDV(sp4-el): 132.8 ml LVAs ap4: 18.3 cm2 LVLs ap4: 6.9 cm ESV(MOD-sp4): 40.7 ml ESV(sp4-el): 41.0 ml EF(MOD-sp4): 67.4 % EF(sp4-el): 69.2 % SV(sp4-el): 91.8 ml LA A4 area: 14.4 cm2 LA dimension(2D): 4.3 cm RA A4 area: 11.0 cm2 TAPSE: 1.9 cm Time Measurements MV dec time: 0.19 sec Doppler Measurements Calculations MV E max eneida: 64.2 cm/sec Lat Peak E' Eneida: 4.3 cm/sec Med Peak E' Eneida: 7.0 cm/sec MV A max eneida: 112.1 cm/sec E/E' lat: 14.9 E/E' med: 9.2 MV E/A: 0.57 MV V2 max: 134.4 cm/sec MV P1/2t max eneida: 74.7 cm/sec Ao V2 max: 161.6 cm/sec MV max P.2 mmHg MV P1/2t: 68.0 msec Ao max P.5 mmHg MV V2 mean: 63.3 cm/sec MV dec slope: 321.9 cm/sec2 Ao V2 mean: 112.0 cm/sec MV mean P.0 mmHg MVA(P1/2t): 3.2 cm2 Ao mean P.7 mmHg MV V2 VTI: 25.2 cm Ao V2 VTI: 33.8 cm AV (velocity ratio): 0.75 LV V1 max: 115.2 cm/sec LV V1 max P.3 mmHg LV V1 mean P.2 mmHg LV V1 mean: 86.1 cm/sec LV V1 VTI: 25.2 cm ECHO/Echo Complete W/ Contrast Interpretation Summary Normal LV size. The left ventricular ejection fraction is 70 %. Stage 1 diastolic dysfunction. Contrast injection was performed. Ordering Physician: Deshawn Mascorro Referring Physician: Deshawn Mascorro Performed By: Noah Kaiser RCS 03/21/25 1250 Date Matty Graves MD CC: MARKET DEVELOPMENT ANALYST-C Deshawn Mascorro; Dr. Henrry Odom MD Date Dictated: 03/21/25 0934 Date Transcribed: 03/21/25 1250 Icu Rn: Signed Normal [facility] Echocardiogram study reportO rdered By: Matty Graves on 03-21-2025 Study report [facility] Cardi[facility] [place] [address] Echo Complete W/ Contrast 03/21/25 0934 MR#: [id number] Acct: [id number] Name: FRANCIE MORENO Rep #:[id number] : 1960 65 From: Matty Lim Attending Dr: Deshawn Mascorro, MARKET DEVELOPMENT ANALYST-C Sta tus: REG CLI Ordering Dr: Deshawn Mascorro MARKET DEVELOPMENT ANALYST MARKET DEVELOPMENT ANALYST-C Date: 03/21/25 Location: CVS Sex: F C Admitted: Reason For Study Reason For Study: Dyspnae/SOB Procedure This was a 2D Doppler, Color Flow transthoracic echocardiogram. The study was technically difficult. Contrast injection was performed. Exam performed in department. Left Ventricle Normal LV size. The left ventricular ejection fraction is 70 %. Stage 1 diastolic dysfunction. No regional wall motion abnormalities noted. Right Ventricle Normal RV size. Normal systolic function. Atria Normal left atrium. Normal right atrium. Mitral Valve Normal mitral valve. Tricuspid Valve Normal tricuspid valve. Aortic Valve Trisinus/trileaflet aortic valve. Pulmonic Valve Normal pulmonic valve. Great Vessels Normal aortic root. The pulmonary artery is normal size. Inferior vena cava collapse with respiration. Pericardium/Pleural No pericardial effusion. Medication 22 gauge I.V. with prn adaptor inserted into left arm. Diluted definity 3ml given slow IV push to enhance endocardial definition. MMode/2D Measurements & Calculations LVIDd: 3.7 cm IVSd: 0.89 cm Ao root diam: 3.5 cm LVIDs: 2.7 cm LVPWd: 1.2 cm RVDd: 3.3 cm FS: 26.0 % LAV(MOD-bp): 44.9 ml LVAd ap4: 36.3 cm2 SV(MOD-sp4): 84.3 ml LAV(MOD-bp) Indexed: 24.7 ml/m2 LVLd ap4: 8.4 cm SI(MOD-sp4): 46.4 ml/m2 LAV(MOD-sp2): 55.2 ml EDV(MOD-sp4): 125.0 ml LAV(MOD-sp4): 34.4 ml EDV(sp4-el): 132.8 ml LVAs ap4: 18.3 cm2 LVLs ap4: 6.9 cm ESV(MOD-sp4): 40.7 ml ESV(sp4-el): 41.0 ml EF(MOD-sp4): 67.4 % EF(sp4-el): 69.2 % SV(sp4-el): 91.8 ml LA A4 area: 14.4 cm2 LA dimension(2D): 4.3 cm RA A4 area: 11.0 cm2 TAPSE: 1.9 cm Time Measurements MV dec time: 0.19 sec Doppler Measurements & Calculations MV E max eneida: 64.2 cm/sec Lat Peak E' Eneida: 4.3 cm/sec Med Peak E' Eneida: 7.0 cm/sec MV A max eneida: 112.1 cm/sec E/E' lat: 14.9 E/E' med: 9.2 MV E/A: 0.57 MV V2 max: 134.4 cm/sec MV P1/2t max eneida: 74.7 cm/sec Ao V2 max: 161.6 cm/sec MV max P.2 mmHg MV P1/2t: 68.0 msec Ao max P.5 mmHg MV V2 mean: 63.3 cm/sec MV dec slope: 321.9 cm/sec2 Ao V2 mean: 112.0 cm/sec MV mean P.0 mmHg MVA(P1/2t): 3.2 cm2 Ao mean P.7 mmHg MV V2 VTI: 25.2 cm Ao V2 VTI: 33.8 cm AV (velocity ratio): 0.75 LV V1 max: 115.2 cm/sec LV V1 max P.3 mmHg LV V1 mean P.2 mmHg LV V1 mean: 86.1 cm/sec LV V1 VTI: 25.2 cm ECHO/Echo Complete W/ Contrast Interpretation Summary Normal LV size. The left ventricular ejection fraction is 70 %. Stage 1 diastolic dysfunction. Contrast injection was performed. Ordering Physician: Deshawn Mascorro Referring Physician: Deshawn Mascorro Performed By: Noah Kaiser RCS 03/21/25 1250 Date _ Matty Graves MD CC: MARKET DEVELOPMENT ANALYST-C Deshawn Mascorro; Dr. Henrry Odom MD ~ Date Dictated: 03/21/2534 Date Transcribed: 03/21/25 125 Icu Rn: Signed [facility] Work Phone: Stress Reporton 03-21-2025 Stress Report [facility] Cardiovascular Services [address] [place] [address] MR#: [id number] Acct: [id number] Name: FRANCIE MORENO Rep #: [id number] : 1960 65 From: Matty Graves MD Primary Care: Dr. Henrry Odom MD Status: REG CLI Referring Dr: Deshawn Mascorro MARKET DEVELOPMENT ANALYST MARKET DEVELOPMENT ANALYST-C Sex: F C Stress Test Report Pharmacologic myocardial perfusion stress test. 65-year-old lady with a history of dyspnea coronary artery disease Resting EKG demonstrates sinus rhythm with a rate of 67 bpm. Resting blood pressure is 148/92 mmHg. 0.4 mg of regadenoson was infused per usual protocol followed by rapid intravenous saline flush injection. Continuous EKG monitoring was performed. The maximum heart rate was 104 bpm which was 67% of max impacted heart rate the maximum workload was 1 metabolic equivalent. At rest there were no ST or T wave changes noted to suggest ischemia and at peak infusion nonspecific ST changes were noted which did not meet the criteria for ischemia. No clinical angina is noted. The final blood pressure was 178/98 mmHg. Myocardial perfusion protocol. 11.5 mCi of technetium 99m sestamibi was injected at rest. 0.4 mg of regadenoson was infused per usual protocol. At peak infusion 34.4 mCi of technetium 99m sestamibi was injected stress images were obtained stress and rest images were reconstructed and compared in the short axis vertical long and horizontal long axis. Gated images were also obtained. Perfusion SPECT analysis: Review of the stress images demonstrate normal uptake of tracer noted in all areas of the myocardium. The resting images similar demonstrated normal uptake of tracer noted in all areas of the myocardium. No areas of reversibility are noted to suggest ischemia and no previous infarct is noted. Gated SPECT analysis: The gated ejection fraction is 73%. Conclusion: Normal pharmacologic myocardial perfusion stress test. Preserved ejection fraction. 03/21/251226 Date Matty Graves MD CC: COLT Mascorro; Dr. Henrry Odom MD Date Dictated: 03/21/251223 Date Transcribed: 03/21/251223 Icu Rn: CO Signed [facility] 03-06-2025 [facility] Telephone (RHBATH) FRANCIE MORENO ([id number]) 1960 F Date Time Provider Department 03/06/25 SHELLY SU During your visit today, we recorded the following information about you: Laura Nelson LPN 03/06/2025 1:33 PM Signed ----- Message from Shelly Su MD sent at 03/05/2025 1:54 PM EDT ----- How did her infusion go? Laura Nelson LPN 03/06/2025 1:44 PM Signed Patient states, It went good. It took a little longer than normal because of the precautions. It went great. Patient states she may have gained weight [...] mg by mouth once daily. - fexofenadine (ALLIE) 180 mg tablet Take 180 mg by mouth once daily. - omeprazole (PRILOSEC) 20 mg capsule Take 20 mg by mouth once daily. 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 tuberculosis tuberculin stim IFN-g Ql (Bld) Negative Normal [facility] Comment on above: Order Comment: Clarita clark Type: BLOOD SPECIMEN Ordering Facility: [facility] Address: [address] [place] [address] Performed By: #### I NTPGP #### [facility] CLIA [id number] [address] [place] [address] [place] MITOGEN MINUS NIL 2.64 IU/mL Normal >=0.50 [facility] Comment on above: Order Comment: Clarita clark Type: BLOOD SPECIMEN Ordering Facility: [facility] Address: [address] [place] [address] Performed By: #### I NTPGP #### [facility] CLIA [id number] [address] [place] [address] [place] TB GAMMA INTERPRETATION Infection with M . tuberculosis complex is unlikely. If latent tuberculosis infection is highly suspected, a negative result does not rule out the infection. Specimens from immunocompromised patients and those <5 years of age may show false negative results. In case of a contact investigation, please repeat 8-12 weeks after a known exposure. Normal [facility] Comment on above: Order Comment: Clarita clark Type: BLOOD SPECIMEN Ordering Facility: [facility] Address: [address] [place] [address] Performed By: #### I NTPGP #### [facility] CLIA [id number] [address] [place] [address] [place] TB NIL 0.01 IU/mL Normal <=8.00 [facility] Comment on above: Order Comment: Speci men Type: BLOOD SPECIMEN Ordering Facility: [facility] Address: [address] [place] [address] Performed By: #### I NTPGP #### [facility] CLIA [id number] [address] [place] [address] [place] TB1 AG MINUS NIL 0.00 IU/mL Normal <0.35 [facility] Comment on above: Order Comment: Speci men Type: BLOOD SPECIMEN Ordering Facility: [facility] Address: [address] [place] [address] Performed By: #### I NTPGP #### [facility] CLIA [id number] [address] [place] [address] [place] TB2 AG MINUS NIL 0.00 IU/mL Normal <0.35 [facility] Comment on above: Order Comment: Speci men Type: BLOOD SPECIMEN Ordering Facility: [facility] Address: [address] [place] [address] Performed By: #### I NTPGP #### [facility] CLIA [id number] [address] [place] [address] [place] CBC W Auto Differential pane l (Bld)on 02-27-2025 Basophils (Bld) [#/Vol] 0.11 10*3/uL High [facility] Basophils/100 WBC (Bld) 0.7 % [facility] Differential cell count method Nom (Bld) Auto [facility] Eosinophils (Bld) [#/Vol] 0.1 10*3/uL [facility] Eosinophils/100 WBC (Bld) 0.6 % [facility] Erythrocyte distribution width (RBC) [Ratio] 15.9 % High 11.5 - 15.0 % [facility] Hematocrit (Bld) [Volume fraction] 31.1 % Low 36.0 - 46.0 % [facility] Hemoglobin (Bld) [Mass/Vol] 10 g/dL Low 11.5 - 15.5 g/dL [facility] Immature granulocytes (Bld) [#/Vol] 0.26 10*3/uL High [facility] Immature granulocytes/100 WBC (Bld) 1.6 % [facility] Lymphocytes (Bld) [#/Vol] 2.29 10*3/uL [facility] Lymphocytes/100 WBC (Bld) 14.4 % [facility] MCH (RBC) [Entitic mass] 26.2 pg 26. 0 - 34.0 pg [facility] MCHC (RBC) [Mass/Vol] 32.2 g/dL 30.5 - 36.0 g/dL [facility] MCV (RBC) [Entitic vol] 81.6 fL 80.0 - 100.0 fL [facility] Monocytes (Bld) [#/Vol] 0.78 10*3/uL [facility] Monocytes/100 WBC (Bld) 4.9 % [facility] Neutrophils (Bld) [#/Vol] 12.4 10*3/uL High [facility] Neutrophils/100 WBC (Bld) 77.8 % [facility] Nucleated RBC (Bld) [#/Vol] [facility] Nucleated RBC/100 WBC (Bld) [Ratio] 0 % /100 WBC [facility] Platelet mean volume (Bld) [Entitic vol] 8.9 fL Low 9.0 - 12.7 fL [facility] Platelets (Bld) [#/Vol] 565 10*3/uL High [facility] RBC (Bld) [#/Vol] 3.81 10*6/uL Low 3.90 - 5.2 0 m/uL [facility] WBC (Bld) [#/Vol] 15.94 10*3/uL High [facility] Basophils (Bld) [#/Vol] 0.11 10*3/uL High <0.11 [facility] Comment on above: Order Comment: Speci men Type: BLOOD SPECIMEN Ordering Facility: [facility] Address: [address], [place] [address] Performed By: #### 5 7021-8, 44690-4 #### [facility] CLIA [id number] [address] [place] [address] [place] Basophils/100 WBC (Bld) 0.7 % Normal [facility] Comment on above: Order Comment: Speci men Type: BLOOD SPECIMEN Ordering Facility: [facility] Address: [address], [place] [address] Performed By: #### 5 7021-8, 65118-6 #### [facility] CLIA [id number] [address] [place] [address] [place] Differential cell count method Nom (Bld) Auto Normal [facility] Comment on above: Order Comment: Speci men Type: BLOOD SPECIMEN Ordering Facility: [facility] Address: [address], [place] [address] Performed By: #### 5 7021-8, 67868-7 #### [facility] CLIA [id number] [address] [place] [address] [place] Eosinophils (Bld) [#/Vol] 0.10 10*3/uL Normal <0.46 [facility] Comment on above: Order Comment: Speci men Type: BLOOD SPECIMEN Ordering Facility: [facility] Address: [address], [place] [address] Performed By: #### 5 7021-8, 06494-9 #### [facility] CLIA [id number] [address] [place] [address] [place] Eosinophils/100 WBC (Bld) 0.6 % Normal [facility] Comment on above: Order Comment: Speci men Type: BLOOD SPECIMEN Ordering Facility: [facility] Address: [address], [place] [address] Performed By: #### 5 7021-8, 66029-9 #### [facility] CLIA [id number] [address] [place] [address] [place] Erythrocyte distribution width (RBC) [Ratio] 15.9 % High 11.5-15.0 [facility] Comment on above: Order Comment: Speci men Type: BLOOD SPECIMEN Ordering Facility: [facility] Address: [facility] [place] [address] Performed By: #### 5 7021-8, 87597-4 #### [facility] CLIA [id number] [address] [place] [address] [place] Hematocrit (Bld) [Volume fraction] 31.1 % Low 36.0-46.0 [facility] Comment on above: Order Comment: Speci men Type: BLOOD SPECIMEN [facility] [place] [address] Performed By: #### 5 7021-8, 48166-5 #### [facility] CLIA [id number] [address] [place] [address] [place] Hemoglobin (Bld) [Mass/Vol] 10.0 g/dL Low 11.5-15.5 [facility] Comment on above: Order Comment: Speci men Type: BLOOD SPECIMEN Ordering Facility: [facility] Address: [facility] [place] [address] Performed By: #### 5 7021-8, 67459-8 #### [facility] CLIA [id number] [address] [place] [address] [place] Immature granulocytes (Bld) [#/Vol] 0.26 10*3/uL High <0.10 [facility] Comment on above: Order Comment: Speci men Type: BLOOD SPECIMEN [facility] [place] [address] Performed By: #### 5 7021-8, 97902-0 #### [facility] CLIA [id number] [address] [place] [address] [place] Immature granulocytes/100 WBC (Bld) 1.6 % Normal [facility] Comment on above: Order Comment: Speci men Type: BLOOD SPECIMEN [facility] [place] [address] Performed By: #### 5 7021-8, 23238-8 #### [facility] CLIA [id number] [address] [place] [address] [place] Lymphocytes (Bld) [#/Vol] 2.29 10*3/uL Normal 1.00-4.00 [facility] Comment on above: Order Comment: Speci men Type: BLOOD SPECIMEN Ordering Facility: [facility] Address: [address] [place] [address] Performed By: #### 5 7021-8, 31961-3 #### [facility] CLIA [id number] [address] [place] [address] [place] Lymphocytes/100 WBC (Bld) 14.4 % Normal [facility] Comment on above: Order Comment: Speci men Type: BLOOD SPECIMEN Ordering Facility: [facility] Address: [address] [place] [address] Performed By: #### 5 7021-8, 31809-6 #### [facility] CLIA [id number] [address] [place] [address] [place] MCH (RBC) [Entitic mass] 26.2 pg Normal 26.0-34.0 [facility] Comment on above: Order Comment: Speci men Type: BLOOD SPECIMEN Ordering Facility: [facility] Address: [address] [place] [address] Performed By: #### 5 7021-8, 08350-2 #### [facility] CLIA [id number] [address] [place] [address] [place] MCHC (RBC) [Mass/Vol] 32.2 g/dL Normal 30.5-36.0 [facility] Comment on above: Order Comment: Speci men Type: BLOOD SPECIMEN Ordering Facility: [facility] Address: [facility] [place] [address] Performed By: #### 5 7021-8, 40816-3 #### [facility] CLIA [id number] [address] [place] [address] [place] MCV (RBC) [Entitic vol] 81.6 fL Normal 80.0-100.0 [facility] Comment on above: Order Comment: Speci men Type: BLOOD SPECIMEN Ordering Facility[facility] Address: [facility] [place] [address] Performed By: #### 5 7021-8, 95137-5 #### [facility] CLIA [id number] [address] [place] [address] [place] Monocytes (Bld) [#/Vol] 0.78 10*3/uL Normal <0.87 [facility] Comment on above: Order Comment: Speci men Type: BLOOD SPECIMEN Ordering Facility[facility] Address: [facility] [place] [address] Performed By: #### 5 7021-8, 56681-7 #### [facility] CLIA [id number] [address] [place] [address] [place] Monocytes/100 WBC (Bld) 4.9 % Normal [facility] Comment on above: Order Comment: Speci men Type: BLOOD SPECIMEN Ordering Facility[facility] Address: [facility] [place] [address] Performed By: #### 5 7021-8, 45963-1 #### [facility] CLIA [id number] [address] [place] [address] [place] Neutrophils (Bld) [#/Vol] 12.40 10*3/uL High 1.45-7.50 [facility] Comment on above: Order Comment: Speci amber Type: BLOOD SPECIMEN Ordering Facility: [facility] Address: [place] [address] Performed By: #### 5 7021-8, 69078-2 #### [facility] CLIA [id number] [address] [place] [address] [place] Neutrophils/100 WBC (Bld) 77.8 % Normal [facility] Comment on above: Order Comment: Speci men Type: BLOOD SPECIMEN Ordering Facility: [facility] Address: [place] [address] Performed By: #### 5 7021-8, 63687-6 #### [facility] CLIA [id number] [address] [place] [address] [place] Nucleated RBC (Bld) [#/Vol] 10*3/uL Normal <0.01 [facility] Comment on above: Order Comment: Kaushali amber Type: BLOOD SPECIMEN Ordering Facility: [facility] Address: [place] [address] Performed By: #### 5 7021-8, 32591-6 #### [facility] CLIA [id number] [address] [place] [address] [place] Nucleated RBC/100 WBC (Bld) [Ratio] 0.0 /[address] [facility] Comment on above: Order Comment: Speci men Type: BLOOD SPECIMEN Ordering Facility: [facility] Address: [place] [address] Performed By: #### 5 7021-8, 22893-2 #### [facility] CLIA [id number] [address] [place] [address] [place] Platelet mean volume (Bld) [Entitic vol] 8.9 fL Low 9.0-12.7 [facility] Comment on above: Order Comment: Speci men Type: BLOOD SPECIMEN Ordering Facility: [facility] Address: [place] [address] Performed By: #### 5 7021-8, 69922-8 #### [facility] CLIA [id number] [address] [place] [address] [place] Platelets (Bld) [#/Vol] 565 10*3/uL High 150-400 [facility] Comment on above: Order Comment: Speci men Type: BLOOD SPECIMEN Ordering Facility: [facility] Address: [address] [place] [address] Performed By: #### 5 7021-8, 71042-7 #### [facility] CLIA [id number] [address] [place] [address] [place] RBC (Bld) [#/Vol] 3.81 10*6/uL Low 3.90-5.20 [facility] Comment on above: Order Comment: Speci men Type: BLOOD SPECIMEN Ordering Facility[facility] Address: [facility] [place] [address] Performed By: #### 5 7021-8, 33225-4 #### [facility] CLIA [id number] [address] [place] [address] [place] WBC (Bld) [#/Vol] 15.94 10*3/uL High 3.70-11.00 [facility] Comment on above: Order Comment: Speci men Type: BLOOD SPECIMEN [facility] [place] [address] Performed By: #### 5 7021-8, 40982-8 #### [facility] CLIA [id number] [address] [place] [address] [place] Ferritin SerPl-ncon 2024 Ferritin [Mass/Vol] 72.9 ng/mL Normal 14.7-205.1 [facility] Comment on above: Order Comment: Clarita clark Type: BLOOD SPECIMEN Ordering Facility: [facility] Address: [address], [place] [address] Performed By: #### 5 0190-8, 6-4 #### [facility] CLIA [id number] [address] [place] [id number] [place] Ferritin [Mass/Vol]on 2024 Interpretation and review of laboratory results Normal [facility] Iron and Iron binding capaci ty panelon 02-27-2025 Interpretation and review of laboratory results Abnormal [facility] Iron [Mass/Vol] 50 ug/dL 41 - 186 ug/dL [facility] Iron binding capacity [Mass/Vol] 348 ug/dL 232 - 386 ug/dL [facility] Iron/TIBC [Molar ratio] 14.4 % Low 15.0 - 57.0 % [facility] Iron [Mass/Vol] 50 ug/dL Normal 41-186 [facility] Comment on above: Order Comment: Clarita clark Type: BLOOD SPECIMEN Ordering Facility: [facility] Address: [address], [place] [address] Performed By: #### 5 0190-8, 2275-4 #### [facility] CLIA [id number] [address] [place], [place] [address] [place] Iron binding capacity [Mass/Vol] 348 ug/dL Normal 232-386 [facility] Comment on above: Order Comment: Speci men Type: BLOOD SPECIMEN Ordering Facility: [facility] Address: [address], [place] [address] Performed By: #### 5 0190-8, 6-4 #### [facility] CLIA [id number] [address] [place] [id number] [place] Iron/TIBC [Molar ratio] 14.4 % Low 15.0-57.0 [facility] Comment on above: Order Comment: Speci men Type: BLOOD SPECIMEN Ordering Facility: [facility] Address: [address], [place] [address] Performed By: #### 5 0190-8, 2276-4 #### [facility] CLIA [id number] [address] [place] [address] [place] Laboratory - Chemistry and C hemistry - challengeon 02-27-2025 Ferritin [Mass/Vol] 72.9 ng/mL 14.7 - 2 05.1 ng/mL [facility] - Hematology and Cell countson 02-27-2025 Reticulocytes (Bld) [#/Vol] 0.112 10*3/uL High [facility] No Panel Informationon 02-27 Interpretation and review of laboratory results Abnormal [facility] Retics #on 02-27-2025 Reticulocytes (Bld) [#/Vol] 0.39884 10*3/uL High 0.018-0.100 [facility] Comment on above: Order Comment: Speci men Type: BLOOD SPECIMEN Ordering Facility[facility] Address: [address], [place] [address] Performed By: #### 5 7021-8, 76218-4 #### [id number] [address] [place] [address] [place] Reticulocytes (Bld) [#/Vol]o n 02-27-2025 Reticulocytes/100 RBC (Bld) 3 % High 0.4 - 2.0 % [facility] Reticulocytes/100 RBC (Bld) 3.0 % High 0.4-2.0 [facility] Comment on above: Order Comment: Speci men Type: BLOOD SPECIMEN Ordering Facility[facility] Address: [address], [place] [address] Performed By: #### 5 7021-8, 44764-3 #### [facility] CLIA [id number] [address] [place] [address] [facility] Nimesh 02-26-2025 CNPN Telephone (KATLYN) FRANCIE MORENO ([id number]) 1960 F Date Time Provider Department 02/26/25 SILVANO KO During your visit today, we recorded the following information about you: Magda Russo RN 02/26/2025 9:18 AM Signed Pt is scheduled upstairs on 02/27 for Rituximab. Please reschedule to main chemo floor for tomorrow's treatment and any future treatments. Rituximab cannot be given on 2nd floor. Thank you! Aaliyah Watters 02/26/2025 9:28 AM Signed Updated treatments to 1st floor Aaliyah Watters Allergies As of Date: 02/26/2025 Noted [...] mg by mouth once daily. - fexofenadine (ALLIE) 180 mg tablet Take 180 mg by mouth once daily. - omeprazole (PRILOSEC) 20 mg capsule Take 20 mg by mouth once daily. 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] 05/12/2016 Family history of ischemic heart disease [Z82.4*05/12/2016 Pulmonary hypertension, secondary (HCC) [QDM401*05/12/2016 Chronic obstructive pulmonary disease (HCC) [J4*05/12/2016 High risk medication use [Z79.899] 08/21/2018 RA (rheumatoid arthritis) (HCC) [M06.9] 09/22/2018 11/16/2022 Rheumatoid arthritis of multiple sites without *06/12/2021 Infective arthritis (HCC) [M00.9] 02/23/2023 Encounter Status:Closed by AALIYAH WATTERS on 02/26/25 [facility] Nimesh 02-25-2025 SYEDA Telephone ([employer]) FRANCIE MORENO ([id number]) 1960 F Date Time Provider Department 02/25/25 SHELLY SU During your visit today, we recorded the following information about you: Allergies As of Date: 02/25/2025 Noted Allergy Reaction INFLECTRA (INFLIXIMAB-DYYB) 10/24/2024 2 - Rash MOLD 06/21/2019 14 - Other: See Comments Comments: sneezing/sinus infections POLLEN 02/19/2010 9 - Itching Date Reviewed: 10/24/2024 Reviewed by: Laura Nelson LPN - Fully Assessed Reason for Visit: RITUXAN [employer] - APPROVED [Other] Cmt: Rituxan Brand, [place] - Completed by the pharmacy team Prescriptions [...] mg by mouth once daily. - fexofenadine (ALLIE) 180 mg tablet Take 180 mg by mouth once daily. - omeprazole (PRILOSEC) 20 mg capsule Take 20 mg by mouth once daily. 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] 05/12/2016 Family history of ischemic heart disease [Z82.4*05/12/2016 Pulmonary hypertension, secondary (HCC) [KSQ218*05/12/2016 Chronic obstructive pulmonary disease (HCC) [J4*05/12/2016 High risk medication use [Z79.899] 08/21/2018 RA (rheumatoid arthritis) (HCC) [M06.9] 09/22/2018 11/16/2022 Rheumatoid arthritis of multiple sites without *06/12/2021 Infective arthritis (HCC) [M00.9] 02/23/2023 Encounter Status:Closed by TALIA RODRIGUEZ on 02/25/25 [facility] CNPN Telephone (RHBATH) FRANCIE MORENO ([id number]) 1960 F Date Time Provider Department 02/25/25 SHELLY SU [facility] During your visit today, we recorded the [...] mg by mouth once daily. - fexofenadine (ALLIE) 180 mg tablet Take 180 mg by mouth once daily. - omeprazole (PRILOSEC) 20 mg capsule Take 20 mg by mouth once daily. 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] 05/12/2016 Family history of ischemic heart disease [Z82.4*05/12/2016 Pulmonary hypertension, secondary (HCC) [XZD086*05/12/2016 Chronic obstructive pulmonary disease (HCC) [J4*05/12/2016 High risk medication use [Z79.899] 08/21/2018 RA (rheumatoid arthritis) (HCC) [M06.9] 09/22/2018 11/16/2022 Rheumatoid arthritis of multiple sites without *06/12/2021 Infective arthritis (HCC) [M00.9] 02/23/2023 Encounter Status:Closed by GO KENDALL on 02/25/25 [facility] CNPDayna 02-21-2025 CNPN Telephone (RHBATH) FRANCEI MORENO ([id number]) 1960 F Date Time Provider Department 02/21/25 SHELLY SU RHBATH During your visit today, we recorded the following information about you: Samira Mistry 02/21/2025 1:21 PM Signed Lab called, TB screen was cancelled due to tubes being overfilled. New order for TB screen needed for redraw. I will notify patient once order is placed Samria Castro 02/22/2025 3:56 PM Signed Called patient [...] Order(s):BLOOD TB SCREEN, INCUBATED [[id number]] Order #: [id number] FUTURE Prescriptions as of 02/22/2025 - predniSONE [...] mg by mouth once daily. - fexofenadine (ALLIE) 180 mg tablet Take 180 mg by mouth once daily. - omeprazole (PRILOSEC) 20 mg capsule Take 20 mg by mouth once daily. 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] 05/12/2016 Family history of ischemic heart disease [Z82.4*05/12/2016 Pulmonary hypertension, secondary (HCC) [HVD113*05/12/2016 Chronic obstructive pulmonary disease (HCC) [J4*05/12/2016 High risk medication use [Z79.899] 08/21/2018 RA (rheumatoid arthritis) (HCC) [M06.9] 09/22/2018 11/16/2022 Rheumatoid arthritis of multiple sites without *06/12/2021 Infective arthritis (HCC) [M00.9] 02/23/2023 Encounter Status:Closed by SHELLY SU on 02/22/25 Normal [facility] 25(OH)D3 SerPl-mCncon 2024 25-hydroxyvitamin D3 [Mass/Vol] 64.7 ng/mL Normal >=30.0 [facility] Comment on above: Order Comment: Speci men Type: BLOOD SPECIMENOrdering Facility: [facility] Address: [address] [place] [address] Result Comment: Clas sification of 25 [place] Vitamin D status: Deficiency: <= 20.0 ng/ml. Insufficiency: 21.0-29.0 ng/ml. Sufficiency: >= 30.0 ng/ml. Performed By: #### 1 989-3 ####[facility] LABORATORYCLIA [id number] [place] [address] [place] 25-hydroxyvitamin D3 [Mass/V ol]on 02-18-2025 Interpretation and review of laboratory results Normal [facility] C-REACTIVE PROTEINon 025 CRP [Mass/Vol] 5.3 mg/dL High [facility]dL [facility] CBC W Auto Differential pane l (Bld)on 02-18-2025 Basophils (Bld) [#/Vol] 0.09 10*3/uL [facility] Basophils/100 WBC (Bld) 1 % [facility] Differential cell count method Nom (Bld) Auto [facility] Eosinophils (Bld) [#/Vol] 0.22 10*3/uL [facility] Eosinophils/100 WBC (Bld) 2.6 % [facility] Erythrocyte distribution width (RBC) [Ratio] 14.8 % 11.5 - 15.0 % [facility] Hematocrit (Bld) [Volume fraction] 32.5 % Low 36.0 - 46.0 % [facility] Hemoglobin (Bld) [Mass/Vol] 10.2 g/dL Low 11.5 - 15.5 g/dL [facility] Immature granulocytes (Bld) [#/Vol] 0.06 10*3/uL [facility] Immature granulocytes/100 WBC (Bld) 0.7 % [facility] Interpretation and review of laboratory results Abnormal [facility] Lymphocytes (Bld) [#/Vol] 1.83 10*3/uL [facility] Lymphocytes/100 WBC (Bld) 21.3 % [facility] MCH (RBC) [Entitic mass] 25.8 pg Low 26. 0 - 34.0 pg [facility] MCHC (RBC) [Mass/Vol] 31.4 g/dL 30.5 - 36.0 g/dL [facility] MCV (RBC) [Entitic vol] 82.1 fL 80.0 - 100.0 fL [facility] Monocytes (Bld) [#/Vol] 0.72 10*3/uL [facility] Monocytes/100 WBC (Bld) 8.4 % [facility] Neutrophils (Bld) [#/Vol] 5.69 10*3/uL [facility] Neutrophils/100 WBC (Bld) 66 % [facility] Nucleated RBC (Bld) [#/Vol] [facility] Nucleated RBC/100 WBC (Bld) [Ratio] 0 % /100 WBC [facility] Platelet mean volume (Bld) [Entitic vol] 9.8 fL 9.0 - 12.7 fL [facility] Platelets (Bld) [#/Vol] 562 10*3/uL High [facility] Comment on above: No clot detected. RBC (Bld) [#/Vol] 3.96 10*6/uL 3.90 - 5.2 0 m/uL [facility] WBC (Bld) [#/Vol] 8.61 10*3/uL [facility] Basophils (Bld) [#/Vol] 0.09 10*3/uL Normal <0.11 [facility] Comment on above: Order Comment: Speci men Type: BLOOD SPECIMENOrdering Facility: [facility] Address: [address] [place] [address] Performed By: #### 5 7021-8 ####[facility]ORATORYCLIA [id number] [address] STATES [facility] Basophils/100 WBC (Bld) 1.0 % Normal A [facility] Comment on above: Order Comment: Speci men Type: BLOOD SPECIMENOrdering Facility: [facility] Address: [address] [place] [address] Performed By: #### 5 7021-8 ####[facility]ORATORYCLIA [id number] [address] [place] Differential cell count method Nom (Bld) Auto Normal [facility] Comment on above: Order Comment: Speci men Type: BLOOD SPECIMENOrdering Facility: [facility] Address: [address] [place] [address] Performed By: #### 5 7021-8 ####[facility]ATORYCLIA [id number] [address] [place] Eosinophils (Bld) [#/Vol] 0.22 10*3/uL Normal <0.46 [facility] Comment on above: Order Comment: Speci men Type: BLOOD SPECIMENOrdering Facility: [facility] Address: [address] [place] [address] Performed By: #### 5 7021-8 ####[facility]ATORYCLIA [id number] [address] Eosinophils/100 WBC (Bld) 2.6 % Normal [facility] Comment on above: Order Comment: Speci men Type: BLOOD SPECIMENOrdering Facility: [facility] Address: [address] [place] [address] Performed By: #### 5 7021-8 ####[facility]ATORYCLIA [id number] [address] Erythrocyte distribution width (RBC) [Ratio] 14.8 % Normal 11.5-15.0 [facility] Comment on above: Order Comment: Speci men Type: BLOOD SPECIMENOrdering Facility: [facility] Address: [address] [place] [address] Performed By: #### 5 7021-8 ####[facility] LABORATORYCLIA [id number] [address] [place] Hematocrit (Bld) [Volume fraction] 32.5 % Low 36.0-46.0 [facility] Comment on above: Order Comment: Speci men Type: BLOOD SPECIMENOrdering Facility: [facility] Address: [address] [place] [address] Performed By: #### 5 7021-8 ####[facility] LABORATORYCLIA [id number] [address] [place] Hemoglobin (Bld) [Mass/Vol] 10.2 g/dL Low 11.5-15.5 [facility] Comment on above: Order Comment: Speci men Type: BLOOD SPECIMENOrdering Facility: [facility] Address: [address] [place] [address] Performed By: #### 5 7021-8 ####[facility] LABORATORYCLIA [id number] [address] [place] Immature granulocytes (Bld) [#/Vol] 0.06 10*3/uL Normal <0.10 [facility] Comment on above: Order Comment: Speci men Type: BLOOD SPECIMENOrdering Facility: [facility] Address: [address] [place] [address] Performed By: #### 5 7021-8 ####[facility]ORATORYCLIA [id number] [address] [place] Immature granulocytes/100 WBC (Bld) 0.7 % Normal [facility] Comment on above: Order Comment: Speci men Type: BLOOD SPECIMENOrdering Facility: [facility] Address: [address] [place] [address] Performed By: #### 5 7021-8 ####[facility] LABORATORYCLIA [id number] [place] [address] [place] Lymphocytes (Bld) [#/Vol] 1.83 10*3/uL Normal 1.00-4.00 [facility] Comment on above: Order Comment: Speci men Type: BLOOD SPECIMENOrdering Facility: [facility] Address: [address] [place] [address] Performed By: #### 5 7021-8 ####[facility] LABORATORYCLIA [id number] [address] Lymphocytes/100 WBC (Bld) 21.3 % Normal [facility] Comment on above: Order Comment: Speci men Type: BLOOD SPECIMENOrdering Facility: [facility] Address: [address] [place] [address] Performed By: #### 5 7021-8 ####[facility]ORATORYCLIA [id number] [address] MCH (RBC) [Entitic mass] 25.8 pg Low 26.0-34.0 [facility] Comment on above: Order Comment: Speci men Type: BLOOD SPECIMENOrdering Facility: [facility] Address: [address] [place] [address] Performed By: #### 5 7021-8 ####[facility]ORATORYCLIA [id number] [address] MCHC (RBC) [Mass/Vol] 31.4 g/dL Normal 30.5-36.0 [facility] Comment on above: Order Comment: Speci men Type: BLOOD SPECIMENOrdering Facility: [facility] Address: [address] [place] [address] Performed By: #### 5 7021-8 ####[facility]ORATORYCLIA [id number] [address] MCV (RBC) [Entitic vol] 82.1 fL Normal 80.0-100.0 [facility] Comment on above: Order Comment: Speci men Type: BLOOD SPECIMENOrdering Facility: [facility] Address: [address] [place] [address] Performed By: #### 5 7021-8 ####[facility]ORATORYCLIA [id number] [address] Monocytes (Bld) [#/Vol] 0.72 10*3/uL Normal <0.87 [facility] Comment on above: Order Comment: Speci men Type: BLOOD SPECIMENOrdering Facility: [facility] Address: [address] [place] [address] Performed By: #### 5 7021-8 ####[facility]ATORYCLIA [id number] [address] [place] Monocytes/100 WBC (Bld) 8.4 % Normal [facility] Comment on above: Order Comment: Speci men Type: BLOOD SPECIMENOrdering Facility: [facility] Address: [address] [place] [address] Performed By: #### 5 7021-8 ####[facility] LABORATORYCLIA [id number] [address] [place] Neutrophils (Bld) [#/Vol] 5.69 10*3/uL Normal 1.45-7.50 [facility] Comment on above: Order Comment: Speci men Type: BLOOD SPECIMENOrdering Facility: [facility] Address: [address] [place] [address] Performed By: #### 5 7021-8 ####[facility] LABORATORYCLIA [id number] [address] [place] Neutrophils/100 WBC (Bld) 66.0 % Normal [facility] Comment on above: Order Comment: Speci men Type: BLOOD SPECIMENOrdering Facility: [facility] Address: [address] [place] [address] Performed By: #### 5 7021-8 ####[facility]ORATORYCLIA [id number] [place] [address] [place] Nucleated RBC (Bld) [#/Vol] 10*3/uL Normal <0.01 [facility] Comment on above: Order Comment: Speci men Type: BLOOD SPECIMENOrdering Facility: [facility] Address: [address] [place] [address] Performed By: #### 5 7021-8 ####[facility]ORATORYCLIA [id number] [address] [place] Nucleated RBC/100 WBC (Bld) [Ratio] 0.0 /100 WBC Normal [facility] Comment on above: Order Comment: Speci men Type: BLOOD SPECIMENOrdering Facility: [facility] Address: [address] [place] [address] Performed By: #### 5 7021-8 ####[facility]ORATORYCLIA [id number] [address] Platelet mean volume (Bld) [Entitic vol] 9.8 fL Normal 9.0-12.7 [facility] Comment on above: Order Comment: Speci men Type: BLOOD SPECIMENOrdering Facility: [facility] Address: [address] [place] [address] Performed By: #### 5 7021-8 ####[facility]ORATORYCLIA [id number] [address] Platelets (Bld) [#/Vol] 562 10*3/uL High 150-400 [facility] Comment on above: Order Comment: Speci men Type: BLOOD SPECIMENOrdering Facility: [facility] Address: [address] [place] [address] Result Comment: No c lot detected. Performed By: #### 5 7021-8 ####[facility]ORATORYCLIA [id number] [address] [place] RBC (Bld) [#/Vol] 3.96 10*6/uL Normal 3.90-5.20 [facility] Comment on above: Order Comment: Speci men Type: BLOOD SPECIMENOrdering Facility: [facility] Address: [address] [place] [address] Performed By: #### 5 7021-8 ####[facility]ORATORYCLIA [id number] [address] [place] WBC (Bld) [#/Vol] 8.61 10*3/uL Normal 3.70-11.00 [facility] Comment on above: Order Comment: Speci men Type: BLOOD SPECIMENOrdering Facility: [facility] Address: [address], [place] [address] Performed By: #### 5 7021-8 ####[facility] LABORATORYCLIA [id number] [place] [address] [place] [facility] CNOVon 02-18-2025 CNOV Office Visit (RHBATH ) FRANCIE MORENO ([id number]) 1960 F Date Time Provider Department 02/18/25 11:40 AM [facility] During your visit today, we recorded the following information about you: Pulse Respiration Blood pressure 82/minute 13/minute 135/80 Shelly Su MD 02/18/2025 12:54 PM Signed RHEUMATOLOGY PROGRESS NOTE Patient is here for a follow up visit for Francie Stocke is a 65-year-old female with a history of RA, presenting with diffuse pain and stiffness. HPI: Francie reports worsening pain and stiffness since July of last year, affecting multiple areas including her knees, shoulders, wrists, and ankles. She describes the pain as diffuse, stating, I hurt everywhere, and notes significant stiffness in her arms, [...] body pain might be related to fibromyalgia. Francie has a history of knee surgery complications, [...] is of prednisone. Hr last visit with sole assessor was in . She also has BMD, x rays, blood work in apr. She was also presribed SSZ which did not help. Had steroid injection. Leflunamide did not hlp RA involved knees and hands. At present she reports swelling of knees. On prednisone She also has fibromyalgia and reports sharp pain with every step. tail bone pain H/o [place] in 2016. episodes of dizziness and was [...] OF 08/2011 colonoscopy- bleeding ulcer PAST SURGICAL (more content not included)... Normal [facility] Nimesh 02-18-2025 SYEDA Telephone (KATLYN) FRANCIE MORENO ([id number]) 1960 F Date Time Provider Department 02/18/25 DENITA MOODY During your visit today, we recorded the following information about you: Stephanie Wang 02/18/2025 1:31 PM Signed Patient to have rituximab at [place] location. Dr. Georges david. Please review and advise. Okay to call patient, she is expecting to hear from us. Stephanie Wang 02/18/2025 2:50 PM Signed Routed to [place] in error. Aaliyah Watters 02/19/2025 12:48 PM Signed Spoke with patient and scheduled. Aaliyah Watters Allergies As of Date: 02/18/2025 Noted [...] mg by mouth once daily. - fexofenadine (ALLIE) 180 mg tablet Take 180 mg by mouth once daily. - omeprazole (PRILOSEC) 20 mg capsule Take 20 mg by mouth once daily. 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 CRP SerPl-mCncon 02-18-2025 CRP [Mass/Vol] 5.3 mg/dL High <0.9 [facility] Comment on above: Order Comment: Speci men Type: BLOOD SPECIMENOrdering Facility: [facility] Address: [address] [place] [address] Performed By: #### 1 988-5, 62123-8 ####[facility]ORATORYCLIA [id number] [place] [address] [place] Comprehensive metabolic 2000 panelon 02-18-2025 Albumin [Mass/Vol] 3.6 g/dL Low 3.9 - 4.9 g/dL [facility] ALP [Catalytic activity/Vol] 107 U/L 34 - 123 U/L [facility] ALT With P-5'-P [Catalytic activity/Vol] 12 U/L 7 - 38 U/L [facility] Anion gap [Moles/Vol] 10 mmol/L 8 - 15 mmol/L [facility] AST With P-5'-P [Catalytic activity/Vol] 16 U/L 13 - 35 U/L [facility] Bilirubin [Mass/Vol] 0.2 mg/dL 0.2 - 1 .3 mg/dL [facility] Calcium [Mass/Vol] 9.2 mg/dL 8.5 - 10. 2 mg/dL [facility] Chloride [Moles/Vol] 102 mmol/L 98 - 10 7 mmol/L [facility] CO2 [Moles/Vol] 26 mmol/L 22 - 30 mmol/L [facility] Creatinine [Mass/Vol] 0.47 mg/dL Low 0.58 - 0.96 mg/dL [facility] GFR/1.73 sq M.predicted among non-blacks MDRD (S/P/Bld) [Vol rate/Area] 105 mL/min/{1.73_m2} - PINF [facility] Comment on above: Estimated Glomerular Filtration Rate (eGFR) is calculated using the 2020 CKD-EPI creatinine equation. This equation utilizes serum creatinine, sex, and age as parameters. The creatinine assay has traceable calibration to isotope dilution-mass spectrometry. Refer to KDIGO guidelines for clinical interpretation. In patients with unstable renal function, e.g. those with acute kidney injury, the eGFR may not accurately reflect actual GFR. Glucose [Mass/Vol] 92 mg/dL 74 - 99 mg/dL [facility] Comment on above: The [place] Diabete s Association (ADA) provides guidance for cutoff values [...] Standards of Medical Care in Diabetes 2016, [place] Diabetes Association. Diabetes Care. 2016.39(Suppl 1). Potassium [Moles/Vol] 4 mmol/L 3.7 - 5.1 mmol/L [facility] Protein [Mass/Vol] 6.9 g/dL 6.3 - 8.0 g/dL [facility] Sodium [Moles/Vol] 138 mmol/L 136 - 144 mmol/L [facility] Urea nitrogen [Mass/Vol] 8 mg/dL 7 - 21 mg/d L [facility] Albumin [Mass/Vol] 3.6 g/dL Low 3.9-4.9 [facility] Comment on above: Order Comment: Speci men Type: BLOOD SPECIMENOrdering Facility: [facility] Address: [address] [place] [address] Performed By: #### 1 988-5, 96990-3 ####[facility] LABORATORYCLIA [id number] [place] [address] [place] ALP [Catalytic activity/Vol] 107 U/L Normal 34-123 [facility] Comment on above: Order Comment: Speci men Type: BLOOD SPECIMENOrdering Facility: [facility] Address: [address] [place] [address] Performed By: #### 1 988-5, 06794-5 ####[facility]ORATORYCLIA [id number] [place] [address] [place] ALT With P-5'-P [Catalytic activity/Vol] 12 U/L Normal 7-38 [facility] Comment on above: Order Comment: Speci men Type: BLOOD SPECIMENOrdering Facility: [facility] Address: [address] [place] [address] Performed By: #### 1 988-5, 22728-1 ####[facility] LABORATORYCLIA [id number] [address] STATES [facility] Anion gap [Moles/Vol] 10 mmol/L Normal 8-15 [facility] Comment on above: Order Comment: Speci men Type: BLOOD SPECIMENOrdering Facility: [facility] Address: [address] [place] [address] Performed By: #### 1 988-5, 67752-8 ####[facility]ORATORYCLIA [id number] [address] [place] AST With P-5'-P [Catalytic activity/Vol] 16 U/L Normal 13-35 [facility] Comment on above: Order Comment: Speci men Type: BLOOD SPECIMENOrdering Facility: [facility] Address: [address] [place] [address] Performed By: #### 1 988-5, 32656-4 ####[facility]ORATORYCLIA [id number] [address] [place] Bilirubin [Mass/Vol] 0.2 mg/dL Normal 0.2-1.3 [facility] Comment on above: Order Comment: Speci men Type: BLOOD SPECIMENOrdering Facility: [facility] Address: [address] [place] [address] Performed By: #### 1 988-5, 17017-5 ####[facility]ORATORYCLIA [id number] [address] [place] Calcium [Mass/Vol] 9.2 mg/dL Normal 8.5-10.2 [facility] Comment on above: Order Comment: Speci men Type: BLOOD SPECIMENOrdering Facility: [facility] Address: [address] [place] [address] Performed By: #### 1 988-5, 64279-8 ####[facility]ORATORYCLIA [id number] [address] [place] Chloride [Moles/Vol] 102 mmol/L Normal 98-107 [facility] Comment on above: Order Comment: Speci men Type: BLOOD SPECIMENOrdering Facility: [facility] Address: [address] [place] [address] Performed By: #### 1 988-5, ####[facility]ATORYCLIA [id number] [address] [place] CO2 [Moles/Vol] 26 mmol/L Normal 22-30 [facility] Comment on above: Order Comment: Speci men Type: BLOOD SPECIMENOrdering Facility: [facility] Address: [facility] [place] [address] Performed By: #### 1 988-5, ####[facility]ORATORYCLIA [id number] [address] [place] Creatinine [Mass/Vol] 0.47 mg/dL Low 0.58-0.96 [facility] Comment on above: Order Comment: Speci men Type: BLOOD SPECIMENOrdering Facility: [facility] Address: [facility] [place] [address] Performed By: #### 1 988-5, ####[facility] LABORATORYCLIA [id number] [address] [place] Creatinine and Glomerular filtration rate.predicted panel (S/P/Bld) 105 mL/min/1.73m??? Normal >=60 [facility] Comment on above: Order Comment: Clarita clark Type: BLOOD SPECIMENOrdering Facility: [facility] Address: [address] [place] [address] Result Comment: Dianne mated Glomerular Filtration Rate (eGFR) is calculated using the 2020 CKD-EPI creatinine equation. This equation utilizes serum creatinine, sex, and age as parameters. The creatinine assay has traceable calibration to isotope dilution-mass spectrometry. Refer to KDIGO guidelines for clinical interpretation. In patients with unstable renal function, e.g. those with acute kidney injury, the eGFR may not accurately reflect actual GFR. Performed By: #### 1 988-5, 28557-2 ####[facility]ORATORYCLIA [id number] [place] [address] [place] Glucose [Mass/Vol] 92 mg/dL Normal 74-99 [facility] Comment on above: Order Comment: Clarita clark Type: BLOOD SPECIMENOrdering Facility: [facility] Address: [address] [place] [address] Result Comment: The [place] Diabetes Association (ADA) provides guidance for cutoff [...] Standards of Medical Care in Diabetes 2016, [place] Diabetes Association. Diabetes Care. 2016.39(Suppl 1). Performed By: #### 1 988-5, 33514-2 ####[facility]ORATORYCLIA [id number] [place] [address] [place] Potassium [Moles/Vol] 4.0 mmol/L Normal 3.7-5.1 [facility] Comment on above: Order Comment: Clarita clark Type: BLOOD SPECIMENOrdering Facility: [facility] Address: [address] [place] [address] Performed By: #### 1 988-5, 36921-7 ####[facility] LABORATORYCLIA [id number] [address] [place] [facility] Protein [Mass/Vol] 6.9 g/dL Normal 6.3-8.0 [facility] Comment on above: Order Comment: Speci men Type: BLOOD SPECIMENOrdering Facility: [facility] Address: [address] [place] [address] Performed By: #### 1 988-5, 64317-7 ####[facility] LABORATORYCLIA [id number] [address] [place] Sodium [Moles/Vol] 138 mmol/L Normal 136-144 [facility] Comment on above: Order Comment: Speci men Type: BLOOD SPECIMENOrdering Facility: [facility] Address: [address] [place] [address] Performed By: #### 1 988-5, 22530-7 ####[facility] LABORATORYCLIA [id number] [address] [place] Urea nitrogen [Mass/Vol] 8 mg/dL Normal 7-21 [facility] Comment on above: Order Comment: Speci men Type: BLOOD SPECIMENOrdering Facility: [facility] Address: [address] [place] [address] Performed By: #### 1 988-5, 33990-8 ####[facility] LABORATORYCLIA [id number] [place] [address] [place] HBV core Ab Ser Qlon 025 HBV core Ab Ql (S) Negative Normal Negative [facility] Comment on above: Order Comment: Speci men Type: BLOOD SPECIMENOrdering Facility: [facility] Address: [address] [place] [address] Result Comment: No e vidence of current or past infection with Hepatitis B virus. Should recent infection be suspected, repeat testing may be considered 3-4 weeks after this draw. Performed By: #### 1 6933-4 ####[facility] LABCLIA [id number] [place] [address] [place] HBV surface Ab Ql (S)on 02-03 HBV surface Ab Qn (S) 3.5 mIU/mL [facility] Comment on above: <8.5 mIU/mL: No sero logical evidence of immunity to Hepatitis B Virus. >/= 8.5 to <11.5 mIU/mL: No serological evidence of immunity to Hepatitis B Virus. >/= 11.5 mIU/mL: Consistent with serological evidence of immunity to Hepatitis B Virus. HBV surface Ab Qn (S) 3.50 mIU/mL Normal [facility] Comment on above: Order Comment: Speci men Type: BLOOD SPECIMENOrdering Facility: [facility] Address: [address] [place] [address] Result Comment: <8.5 mIU/mL: No serological evidence of immunity to Hepatitis B Virus. >/= 8.5 to <11.5 mIU/mL: No serological evidence of immunity to Hepatitis B Virus. >/= 11.5 mIU/mL: Consistent with serological evidence of immunity to Hepatitis B Virus. Performed By: #### 2 2322-2, 5195-3 ####[facility] [id number] [address] STATES OF [facility] HBV surface Ab Ser Qlon 02-03 HBV surface Ab Ql (S) Negative Normal [facility] Comment on above: Order Comment: Speci men Type: BLOOD SPECIMENOrdering Facility: [facility] Address: [address] [place] [address] Result Comment: No s erological evidence of immunity to Hepatitis B Virus. Performed By: #### 2 2322-2, 5195-3 ####[facility]ATORY[facility]IA [id number] [address] [place] HBV surface Ag Ql (S)on 02-03 Interpretation and review of laboratory results Normal [facility] HBV surface Ag Ser Qlon 02-03 HBV surface Ag Ql (S) Non-Reactive Normal Nonreactive [facility] Comment on above: Order Comment: Speci men Type: BLOOD SPECIMENOrdering Facility: [facility] Address: [address] [place] [address] Performed By: #### 2 2322-2, 5195-3 ####[facility]ORATORYCLIA [id number] [address] HCV Ab Ql (S)on 02-18-2025 Interpretation and review of laboratory results Normal [facility] HCV Ab Ser Qlon 02-18-2025 HCV Ab Ql (S) Non-Reactive Normal Nonreactive [facility] Comment on above: Order Comment: Speci amber Type: BLOOD SPECIMENOrdering Facility: [facility] Address: [address] [place] [address] Result Comment: The result suggests no evidence of active infection with Hepatitis C virus. Should recent infection be suspected, repeat testing may be considered 4-6 weeks after this draw. Performed By: #### 1 6128-1 ####[facility]ATORYCLIA [id number] [address] HEPATITIS B SURFACE ANTIBODY on 02-18-2025 HBV surface Ab Ql (S) Negative [facility] Comment on above: No serological evide nce of immunity to Hepatitis B Virus. HEPATITIS B SURFACE ANTIGENo n 02-18-2025 HBV surface Ag Ql (S) Non-Reactive Nonreactive [facility] HEPATITIS C ANTIBODY IA WITH CONFIRMATIONon 02-18-2025 HCV Ab Ql (S) Non-Reactive Nonreactive [facility] Comment on above: The result suggests no evidence of active infection with Hepatitis C virus. Should recent infection be suspected, repeat testing may be considered 4-6 weeks after this draw. No Panel Informationon 02-18 [facility] Interpretation and review of laboratory results Abnormal [facility] VITAMIN D 25 HYDROXYon 02-18 25-hydroxyvitamin D3 [Mass/Vol] 64.7 ng/mL 30.0 - PINF ng/mL [facility] Comment on above: Classification of 25 [place] Vitamin D status: Deficiency: <= 20.0 ng/ml. Insufficiency: 21.0-29.0 ng/ml. Sufficiency: >= 30.0 ng/ml. Cardiology Visit Reporton Cardiology Visit Report [facility] [address] [place] [address] OFFICE VISIT Date of Service: 02/06/25 MR#: [id number] Acct: [id number] Name: FRANCIE MORENO Rep #: [id number] : 1960 Provider: COLT cotton Age/Sex: 64/F Location: [facility] Status: Signed HPI HPI History of Present Illness Details: Francie Moreno is a 64-year-old lady with a history of hypertension, fibromyalgia, and knee arthritis. She has a history of coronary disease status post stenting in 2016 in [place]. At that time she had a drug-eluting stent placed to left anterior descending artery and her ejection fraction was noted to be 50%. She was seen at [facility] Emergency Department on 02/01/2025 for shortness of breath, palpitations, lightheadedness, and presyncope. Her troponin was normal. CT scan of the chest was negative for pulmonary embolism or acute pathology. Orthostatic was noted to be negative. It was recommended that she have a 48-hour Holter monitor placed and follow-up with cardiology. She denies chest, arm, jaw, or neck discomfort. She states palpitations that she describes as a pounding. She denies bilateral lower extremity edema. She denies claudication. She states shortness of breath with activity, shortness of breath at rest, and orthopnea. She denies PND. She denies chronic cough. She denies significant, sudden weight gain. She denies lightheadedness, dizziness, near-syncope, or syncope. She denies blood in urine, blood in stool, or epistaxis. He denies fever with chills. She denies myalgia. She states fatigue that she attributes to not sleeping. Her exercise level has remained stable. Intake Vital Signs 02/01/25 11:08 02/06/25 14:56 02/06/25 15:06 Height 5 ft 2 in 5 ft 2 in Weight: 168 lb BP 133/86 H Blood Pressure Location Lt brachial Position Sitting Respiration 20 H Pulse 100 Pulse Source Monitor Intake Visit Reasons: S/P [facility] 02/01 [employer] Required: No Accompanied by: Daughter Is patient in pain?: No Allergies Seasonal Allergies: Uncoded (environmental) Allergy (Mild, Verified 02/06/25 14:59) sinus issues Medications ???Medication ???Instructions ???Recorded ???Confirmed ???Type omeprazole 20 mg capsule,delayed 20 mg PO DAILY GERD 03/02/2302/06 History release alendronate 70 mg tablet 70 mg PO MEJIA 02/01/25 02/06/25 Hist ory aspirin 81 mg tablet,delayed 81 mg PO DAILY 02/01/25 02/06/25 H istory release (Adult Low Dose Aspirin) biotin 1 mg capsule 1 mg PO DAILY 02/01/25 02/06/25 Hi story cholecalciferol (vitamin D3) 50 50 mcg PO DAILY 02/01/25 02/06/25 History mcg (2,000 unit) capsule fexofenadine 60 mg-pseudoephedrine 1 tab PO DAILY PRN allergy sympt oms 02/01/25 02/06/25 History ER 120 mg tablet,ext.release,12 hr (Allie-D 12 Hour) leflunomide 10 mg tablet 10 mg PO DAILY 02/01/25 02/06/25 H istory lisinopril 20 mg tablet 20 mg PO DAILY 02/01/25 02/06/25 H istory mecobalamin (vitamin B12) 1,000 1,000 mcg PO DAILY 02/01/25 History mcg lozenges Have you fallen in the past year?: No [facility] Medical History Ambulates with cane Anemia Marijuana use ANN (obstructive sleep apnea) Rheumatoid arthritis Allergic rhinitis Gastroesophageal reflux disease Vitamin D deficiency Debility Septic arthritis Wears glasses Anxiety Depression Uses wheelchair Walker as ambulation aid Arthritis Back pain Chronic headaches Former smoker Shortness of breath on exertion History of pain when walking Cardiology follow-up encounter History of non-ST elevation myocardial infarction (NSTEMI) (04/26/16) Obesity Essential hypertension Atherosclerosis of coronary artery of [place] heart without angina pectoris Osteoarthritis of both knees Fibromyalgia Syncope Surgical History History of total left knee replacement (2020) Status post incision and drainage History of cardiac catheterization History of total right knee replacement Hx of colonoscopy History of coronary artery stent placement (04/26/16) Family History Mother Hypertension CVA (cerebral vascular accident) Sister Cancer Father Heart disease Social History household members: children Smoking Status: Former smoker how long ago did patient quit smokin years ago alcohol intake: current alcohol intake frequency: holidays/special occasions only substance use type: does not use caffeine: Yes Type: carbonated beverages and coffee ROS Const Const: Positive for fatigue (but not sleeping); Negative for weakness Eyes Eye (more content not included)... Normal [facility] L503.7505on 02-06-2025 Natriuretic peptide B (Bld) [Mass/Vol] 419 pg/mL Normal <=900 [facility] Comment on above: Result Comment: Hear t Failure Unlikely: < 300 pg/mL Heart Failure Likely < 50 Years: > 450 pg/mL 50-75 Years: > 900 pg/mL >75 Years: > 1800 pg/mL Performed By: #### L 503.7505 #### [facility] [address] [place], [address] Natriuretic peptide.B prohor remi N-Terminal [Mass/volume] in Serum or PlasmaOrdered By: Deshawn Mascorro on 02-06-2025 Natriuretic peptide.B prohormone N-Terminal [Mass/Vol] 419 pg/mL <900 [facility] Comment on above: Heart Failure Unlike ly: < 300 pg/mLHeart Failure Likely< 50 Years: > 450 pg/mL50-75 Years: > 900 pg/mL>75 Years: > 1800 pg/mL 12 Lead EKGon 02-01-2025 12 Lead EKG [facility] [address] [place] [address] 12 Lead EKG 02/01/25 1146 MR#: [id number] Acct: [id number] Name: FRANCIE MORENO Rep #: [id number] : 1960 64 From: Lalit Tucker MD Attending Dr: Status: DEP ER Ordering Dr: Kirby Pritchett MD Date: 02/01/25 Location: ED Sex: F C Admitted: Test Reason : SYNCOPE Blood Pressure : */* mmHG Vent. Rate : 97 BPM Atrial Rate : 97 BPM P-R Int : 148 ms QRS Dur : 72 ms QT Int : 376 ms P-R-T Axes : 44 9 49 degrees QTcB Int : 477 ms Normal sinus rhythm Normal ECG Confirmed by Lalit Tucker ([id number]), editor department JEN BRIONES ([id number]) on 02/04/2025 10:48:59 AM Referred By: Confirmed By: Lalit Tucker 02/04/25 1049 Date Lalit Tucker MD CC: Dr. Kirby Pritchett MD; Dr. Henrry Odom MD Signed Normal [facility] Absolute lymphocyte countOrd ered By: Kirby Pritchett on 02-01-2025 Lymphocytes Auto (Unsp spec) [#/Vol] 1.85 10*3/uL 0.83-4.51 [facility] Absolute neutrophil countOrd ered By: Kirby Pritchett on 02-01-2025 Neutrophils (Bld) [#/Vol] 6.8 10*3/uL 2.0-7.7 [facility] Activated partial thrombopla stin time (aPTT) in platelet poor plasma by coagulation aOrdered By: Kirby Pritchett on 02-01-2025 aPTT Coag (PPP) [Time] 28.4 s 24.1-36.2 [facility] Anion gap in Serum or Plasma Ordered By: Kirby Pritchett on 02-01-2025 Anion gap [Moles/Vol] 16 mmol/L High 5-15 [facility] Automated lymphocyte count a s percentage of total leukocytesOrdered By: Kirby Pritchett on 02-01-2025 Lymphocytes/100 WBC Auto (Unsp spec) 19.8 % 19-41 [facility] BUN/creatinine ratioOrdered By: Kirby Pritchett on 02-01-2025 Urea nitrogen/Creatinine [Mass ratio] 15.4 mg/mg 10-20 [facility] Basic Metabolic Profile (BMP )on 02-01-2025 BUN/CRE 15.4 RATIO Normal - [facility] Comment on above: Performed By: #### L 300.8000, L501.4021, L300.4310, L500.2500, L100.0100 #### [facility] [address] [place], [address] Calcium [Mass/Vol] 10.0 mg/dL Normal 7.6-11.0 [facility] Comment on above: Performed By: #### L 300.8000, L501.4021, L300.4310, L500.2500, L100.0100 #### [facility] [address] [place], [address] Chloride [Moles/Vol] 99 mmol/L Normal 98-108 [facility] Comment on above: Performed By: #### L 300.8000, L501.4021, L300.4310, L500.2500, L100.0100 #### [facility] [address] [place], [address] CO2 [Moles/Vol] 22.4 mmol/L Normal 21.0-32.0 [facility] Comment on above: Performed By: #### L 300.8000, L501.4021, L300.4310, L500.2500, L100.0100 #### [facility] [address] [place], [address] Creatinine [Mass/Vol] 0.70 mg/dL Normal 0.70-1.20 [facility] Comment on above: Performed By: #### L 300.8000, L501.4021, L300.4310, L500.2500, L100.0100 #### [facility] [address] [place], [address] ECRCL 68.89 ml/min Normal 50-250 [facility] Comment on above: Performed By: #### L 300.8000, L501.4021, L300.4310, L500.2500, L100.0100 #### [facility] [address] [place], [address] GAP 16 High 5-15 [facility] Comment on above: Performed By: #### L 300.8000, L501.4021, L300.4310, L500.2500, L100.0100 #### [facility] [address] [place], [address] GFR/1.73 sq M.predicted among non-blacks MDRD (S/P/Bld) [Vol rate/Area] 95 mL/min/{1.73_m2} Normal >60 [facility] Comment on above: Result Comment: mL/m in/1.73m2 CKD-EPI Creatinine Equation (2020) Performed By: #### L 300.8000, L501.4021, L300.4310, L500.2500, L100.0100 #### [facility] [address] [place], [address] Glucose [Mass/Vol] 141 mg/dL High 70-99 [facility] Comment on above: Performed By: #### L 300.8000, L501.4021, L300.4310, L500.2500, L100.0100 #### [facility] [address] [place], [address] Potassium [Moles/Vol] 3.2 mmol/L Low 3.3-5.1 [facility] Comment on above: Performed By: #### L 300.8000, L501.4021, L300.4310, L500.2500, L100.0100 #### [facility] [address] [place], [address] Sodium [Moles/Vol] 138 mmol/L Normal 133-145 [facility] Comment on above: Performed By: #### L 300.8000, L501.4021, L300.4310, L500.2500, L100.0100 #### [facility] [address] [place], [address] Urea nitrogen [Mass/Vol] 11 mg/dL Normal 4-19 [facility] Comment on above: Performed By: #### L 300.8000, L501.4021, L300.4310, L500.2500, L100.0100 #### [facility] [address] [place], [address] Basophil percentageOrdered B y: Kirby Pritchett on 02-01-2024 Basophils/100 WBC (Bld) 0.9 % 0-1 [facility] CBC W/Diff, Automatedon 01-05-2024 Absolute Lymph 1.85 X10 3/uL Normal 0.83-4.51 [facility] Comment on above: Performed By: #### L 300.8000, L501.4021, L300.4310, L500.2500, L100.0100 #### [facility] [address] [place], [address] Absolute Neut 6.8 X10 3/uL Normal 2.0-7.7 [facility] Comment on above: Performed By: #### L 300.8000, L501.4021, L300.4310, L500.2500, L100.0100 #### [facility] [address] [place], [address] Basophils/100 WBC (Bld) 0.9 % Normal 0-1 [facility] Comment on above: Performed By: #### L 300.8000, L501.4021, L300.4310, L500.2500, L100.0100 #### [facility] [address] [place], [address] Eosinophils/100 WBC (Bld) 1.3 % Normal 0-5 [facility] Comment on above: Performed By: #### L 300.8000, L501.4021, L300.4310, L500.2500, L100.0100 #### [facility] [address] [place], [address] Erythrocyte distribution width (RBC) [Ratio] 14.6 % Normal 11.6-14.6 [facility] Comment on above: Performed By: #### L 300.8000, L501.4021, L300.4310, L500.2500, L100.0100 #### [facility] [address] [place], [address] Hematocrit (Bld) [Volume fraction] 38.4 % Normal 37-47 [facility] Comment on above: Performed By: #### L 300.8000, L501.4021, L300.4310, L500.2500, L100.0100 #### [facility] [address] [place], [address] Hemoglobin (Bld) [Mass/Vol] 12.4 g/dL Normal 12.0-15.0 [facility] Comment on above: Performed By: #### L 300.8000, L501.4021, L300.4310, L500.2500, L100.0100 #### [facility] [address] [place], [address] IG% 0.800 Normal 0.0-0.9 [facility] Comment on above: Result Comment: IG% - Immature Granulocytes (promyelocytes, myelocytes and metamyelocytes) > 1% indicates that a LEFT SHIFT is Present. Performed By: #### L 300.8000, L501.4021, L300.4310, L500.2500, L100.0100 #### [facility] [address] [place], [address] Lymphocytes/100 WBC (Bld) 19.8 % Normal 19-41 [facility] Comment on above: Performed By: #### L 300.8000, L501.4021, L300.4310, L500.2500, L100.0100 #### [facility] [address] [place], [address] MCH (RBC) [Entitic mass] 26.0 pg Low 27.0-32.0 [facility] Comment on above: Performed By: #### L 300.8000, L501.4021, L300.4310, L500.2500, L100.0100 #### [facility] [address] [place], [address] MCHC (RBC) [Mass/Vol] 32.3 g/dL Normal 32-36 [facility] Comment on above: Performed By: #### L 300.8000, L501.4021, L300.4310, L500.2500, L100.0100 #### [facility] [address] [place], [address] MCV (RBC) [Entitic vol] 80.5 fL Low 81-99 [facility] Comment on above: Performed By: #### L 300.8000, L501.4021, L300.4310, L500.2500, L100.0100 #### [facility] [address] [place], [address] Monocytes/100 WBC (Bld) 4.9 % Normal 0-10 [facility] Comment on above: Performed By: #### L 300.8000, L501.4021, L300.4310, L500.2500, L100.0100 #### [facility] [address] [place], [address] Neutrophils/100 WBC (Bld) 72.3 % High 47-70 [facility] Comment on above: Performed By: #### L 300.8000, L501.4021, L300.4310, L500.2500, L100.0100 #### [facility] [address] [place], [address] Nucleated RBC (Bld) [#/Vol] 0 10*3/uL Normal 0-5 [facility] Comment on above: Performed By: #### L 300.8000, L501.4021, L300.4310, L500.2500, L100.0100 #### [facility] [address] [place], [address] Platelet mean volume (Bld) [Entitic vol] 8.9 fL Normal 6.2-12.0 [facility] Comment on above: Performed By: #### L 300.8000, L501.4021, L300.4310, L500.2500, L100.0100 #### [facility] [address] [place], [address] Platelets (Bld) [#/Vol] 587 10*3/uL High 150-450 [facility] Comment on above: Performed By: #### L 300.8000, L501.4021, L300.4310, L500.2500, L100.0100 #### [facility] [address] [place], [address] RBC (Bld) [#/Vol] 4.77 10*6/uL Normal 4.2-5.4 [facility] Comment on above: Performed By: #### L 300.8000, L501.4021, L300.4310, L500.2500, L100.0100 #### [facility] [address] [place], [address] RDW SD 42.4 fl Normal 35.1-43.9 [facility] Comment on above: Performed By: #### L 300.8000, L501.4021, L300.4310, L500.2500, L100.0100 #### [facility] [address] [place], [address] WBC (Bld) [#/Vol] 9.3 10*3/uL Normal 4.4-11.0 [facility] Comment on above: Performed By: #### L 300.8000, L501.4021, L300.4310, L500.2500, L100.0100 #### [facility] [address] [place], [address] CTA Chest W/WO Contraston CTA Chest W/WO Contrast [facility] Imaging Services [address] [place] [address] CTA Chest W/WO Contrast MR#: [id number] Acct: [id number] Name: FRANCIE MORENO Rep #: [id number] : 1960 F 64 From: Raymon monzon MD PCP: Dr. Henrry Odom MD Status: REG ER Study: CTA Chest W/WO Contrast Date of Exam: 02/01/25 Exam# [id number] Ordering Dr: Kirby Pritchett MD PROCEDURE: CTA CHEST W/WO CONTRAST 02/01/2025 REASON FOR EXAM: SOB, CP, ELEVATED D-DIMER TECHNIQUE: CTA axial imaging of the chest with intravenous contrast. Multiplanar and multisequence images were obtained. PATIENT PREPARATION: Per protocol CONTRAST: Isovue-300 VOLUME: 100 mL One or more dose reduction techniques were used (e.g., Automated exposure control, adjustment of the mA and/or kV according to patient size, use of iterative reconstruction technique). RADIATION DOSE SUMMARY: CTDlvol: 9 mGy DLP: 379.03 mGycm . COMPARISON: Prior chest radiograph done earlier in the day. FINDINGS: Hardware: None Lymph nodes: Small lymph nodes are seen in both axilla. Largest lymph node in the left axilla measures 8.2 mm. No mediastinal lymph nodes. No hilar lymph nodes. Heart: The heart is nonenlarged. Coronary artery calcifications seen. Thoracic Aorta: No thoracic aortic aneurysm or dissection. Pulmonary Vessels: No evidence of pulmonary embolism. Lungs and Airways: Minimal linear scarring at the left lung base. Pleura: No pleural effusion. Upper Abdomen: Small cysts are seen in the upper pole of the left kidney. Bones: Degenerative changes of the thoracic spine. CT/CTA Chest W/WO Contrast IMPRESSION: No evidence of pulmonary embolism. Coronary artery calcifications. Minimal scarring at the left lung base. Reading Location: [facility]-1 CC: Dr. Kirby Pritchett MD; Dr. Henrry Odom MD Icu Rn: Signed Normal [facility] Carbon dioxide, total [Moles /volume] in Central venous bloodOrdered By: Kirby Pritchett on 02-01-2025 CO2 [Moles/Vol] 22.4 mmol/L 21.0-32.0 [facility] Chest PA and Lateralon 02-01 Chest PA and Lateral [facility] Imaging Services [address], [place] [address] Chest PA and Lateral MR#: [id number] Acct: [id number] Name: FRANCIE MORENO Rep #: [id number] : 1960 F 64 From: Raymon monzon MD PCP: Dr. Henrry Odom MD Status: REG ER Study: Chest PA and Lateral Date of Exam: 02/01/25 Exam# [id number] Ordering Dr: Kirby Pritchett MD PROCEDURE: CHEST PA AND LATERAL 02/01/2025 REASON FOR EXAM: CHEST PAIN TECHNIQUE: Frontal and lateral views of the chest. COMPARISON: Prior study dated June 12, 2020. FINDINGS: Hardware: EKG electrodes are seen. Heart: The heart size is normal. Mediastinum: The mediastinal contour is unremarkable. Lungs: Hyperinflation. The lungs are clear. Bones: Degenerative changes are identified within the thoracic spine. RAD/Chest PA and Lateral IMPRESSION: Hyperinflation. The lungs are clear. Reading Location: [facility]--1 CC: Dr. Kirby Pritchett MD; Dr. Henrry Odom MD Icu Rn: Signed Normal [facility] Chloride assayOrdered By: Michelle Pritchett on 02-01-2025 Chloride [Moles/Vol] 99 mmol/L 98-108 [facility] D-Dimer Quantitative (DVT/PE )on 02-01-2025 D-DIMER QUANT 3.14 FEU/ug/m Invalid Interpretation Code 0.27-0.49 [facility] Comment on above: Result Comment: CRIT ICAL VALUE CALLED TO Vandana MARCUM 02/01/25 1208 Gladys Beatty. RESULTS READ BACK BY SAME. D-Dimer ELEVATED (>0.49): Additional studies and clinical assessments are indicated to conclude diagnosis of: Deep Vein Thrombosis (DVT) or Pulmonary Embolism (PE) Performed By: #### L 300.8000, L501.4021, L300.4310, L500.2500, L100.0100 #### [facility] [address] [place], [address] Emergency Department Summary on 02-01-2025 Emergency Department Summary [facility] Medical Records Department [address] [address] Emergency Department Summary 02/01/25 MR#: [id number] Acct: [id number] Name: FRANCIE MORENO Rep #: [id number] : 1960 64 From: Kirby Pritchett MD PCP: Dr. Henrry Odom MD Status:REG ER Location: ED HPI History of Present Illness Chief Complaint: Shortness of Breath Informant: patient and EMS Narrative Narrative: Patient states that since 3 or 4 this a.m. she has been feeling lightheaded, with episodes like she is going to pass out and her heart racing. Does not feel like it is skipping. Initially denies dyspnea and chest discomfort but later tells me she had this sensation in her upper abdomen and chest like she has to burp and like there is squeezing discomfort. She had a coronary stent in the past. She takes aspirin every day but no other antiplatelet or anticoagulants. She denies any pleuritic chest discomfort. She denies a history of DVT or PE recent leg pain or swelling, recent long travel out of the area, denies hospitalization or outpatient surgery recently. [facility] Medical History Ambulates with cane Anemia Marijuana use ANN (obstructive sleep apnea) Rheumatoid arthritis Allergic rhinitis Gastroesophageal reflux disease Vitamin D deficiency Debility Septic arthritis Wears glasses Anxiety Depression Uses wheelchair Walker as ambulation aid Arthritis Back pain Chronic headaches Former smoker Shortness of breath on exertion History of pain when walking Cardiology follow-up encounter History of non-ST elevation myocardial infarction (NSTEMI) (04/26/16) Obesity Essential hypertension Atherosclerosis of coronary artery of [place] heart without angina pectoris Osteoarthritis of both knees Fibromyalgia Syncope Home Medications ???Medication ???Instructions ???Recorded ???Last Taken ???Type omeprazole 20 mg capsule,delayed 20 mg PO DAILY GERD 03/02/2302/01 History release alendronate 70 mg tablet 70 mg PO MEJIA 02/01/25 01/27/25 Hist ory aspirin 81 mg tablet,delayed 81 mg PO DAILY 02/01/25 02/01/25 H istory release (Adult Low Dose Aspirin) biotin 1 mg capsule 1 mg PO DAILY 02/01/25 02/01/25 Hi story cholecalciferol (vitamin D3) 50 50 mcg PO DAILY 02/01/25 02/01/25 History mcg (2,000 unit) capsule fexofenadine 60 mg-pseudoephedrine 1 tab PO DAILY PRN allergy sympt oms 02/01/25 Unknown History ER 120 mg tablet,ext.release,12 hr (Allie-D 12 Hour) leflunomide 10 mg tablet 10 mg PO DAILY 02/01/25 01/31/25 H istory lisinopril 20 mg tablet 20 mg PO DAILY 02/01/25 02/01/25 H istory mecobalamin (vitamin B12) 1,000 1,000 mcg PO DAILY 02/01/25 History mcg lozenges Allergy/AdvReac Type Severity Reaction Status Date / Time No Known Allergies Allergy Verified 02/01/25 11:10 Family History Mother Hypertension CVA (cerebral vascular accident) Sister Cancer Father Heart disease Surgical History History of cardiac catheterization History of coronary artery stent placement (04/26/16) History of total left knee replacement (2020) History of total right knee replacement Hx of colonoscopy Status post incision and drainage Social History household members: children Smoking Status: Former smoker how long ago did patient quit smokin years ago alcohol intake: current alcohol intake frequency: holidays/special occasions only substance use type: does not use caffeine: Yes Type: carbonated beverages and coffee ROS ROS ED Constitutional Constitutional ED: Denies chills or fever(s) Eyes Eyes: Denies change in vision or diplopia ENT ENT ED: Denies rhinorrhea or sore throat Cardiovascular Cardiovascular: Reports chest pain, lightheadedness and racing heartbeat; Denies radiating jaw, neck or arm pain or syncope Respiratory/Chest Respiratory/Chest: Denies cough or dyspnea Gastrointestinal Gastrointestinal: Denies abdominal pain, diarrhea, nausea or vomiting Genitourinary Genitourinary ED: Denies dysuria or hematuria Musculoskeletal Musculoskeletal: Denies back pain or neck pain Integumentary Denies abscess or rash Neurologic Neurologic: Reports paresthesias; Denies headache(s) or weakness Psychiatric Psychiatric: Denies suicidal thoughts EXAM Physical Exam Const Vital Signs: 02/01/25 11:08 02/01/25 11:25 02/01/25 12:48 Temperature 98.6 F Temperature Source Oral Pulse Rate 107 H Pulse Rate [Lying] 84 Pulse Rate [Sitting (for 1 minute prior to obtaining)] 94 Pulse Rate [Standing (for 1 minute prior to obtaining)] (more content not included)... Normal [facility] Eosinophil percentageOrdered By: Kirby Pritchett on 02-01-2025 Eosinophils/100 WBC (Bld) 1.3 % 0-5 [facility] Erythrocyte distribution wid th ratioOrdered By: Kirby Pritchett on 02-01-2025 Erythrocyte distribution width (RBC) [Ratio] 14.6 % 11.6-14.6 [facility] Erythrocyte distribution wid th standard deviationOrdered By: Kirby Pritchett on 02-01-2025 Erythrocyte distribution width (RBC) [Ratio] 42.4 fl 35.1-43.9 [facility] Glomerular filtration rate ( GFR) estimation/1.73 sq m using serum, plasma, or whole bOrdered By: Kirby Pritchett on 02-01-2025 GFR/1.73 sq M.predicted among non-blacks MDRD (S/P/Bld) [Vol rate/Area] 95 mL/min/{1.73_m2} >60 [facility] Comment on above: mL/min/1.73m2 CKD-EP I Creatinine Equation (2020) Hematocrit Auto (Bld) [Volum e fraction]Ordered By: Kirby Pritchett on 02-01-2025 Hematocrit (Bld) [Volume fraction] 38.4 % 37-47 [facility] Hemoglobin measurementOrdere d By: Kirby Pritchett on 02-01-2025 Hemoglobin (Bld) [Mass/Vol] 12.4 g/dL 12.0-15.0 [facility] Immature granulocytes/100 WB C Auto (Bld)Ordered By: Kirby Pritchett on 02-01-2025 Immature granulocytes/100 WBC (Bld) 0.800 % 0.0-0.9 [facility] Comment on above: IG% - Immature Granu locytes (promyelocytes, myelocytes and metamyelocytes) > 1% indicates that a LEFT SHIFT is Present. L499.0042on 02-01-2025 Trop T High Sen 9 ng/L Normal <=14 [facility] Comment on above: Performed By: #### L 499.0042 #### [facility] [address] [place], [address] L499.0043on 02-01-2025 Trop T High Sen Normal <=14 [facility] Comment on above: Result Comment: Canc elled via OM: Order cancelled - Patient discharged Performed By: #### L 300.8000, L501.4021, L300.4310, L500.2500, L100.0100 #### [facility] [address] [place], [address] L501.4021on 02-01-2025 Trop T High Sen 10 ng/L Normal <=14 [facility] Comment on above: Performed By: #### L 300.8000, L501.4021, L300.4310, L500.2500, L100.0100 #### [facility] [address] [place], [address] MCV (mean corpuscular volume ) determinationOrdered By: Kirby Pritchett on 02-01-2025 MCV (RBC) [Entitic vol] 80.5 fL Low 81-99 [facility] Mean corpuscular hemoglobin (MCH) determinationOrdered By: Kirby Pritchett on 02-01-2025 MCH (RBC) [Entitic mass] 26.0 pg Low 27.0-32.0 [facility] Mean corpuscular hemoglobin concentration (MCHC) determinationOrdered By: Kirby Pritchett on 02-01-2025 MCHC (RBC) [Mass/Vol] 32.3 g/dL 32-36 [facility] Mean platelet volume determi nationOrdered By: Kirby Pritchett on 02-01-2025 Platelet mean volume (Bld) [Entitic vol] 8.9 fL 6.2-12.0 [facility] Monocyte percentageOrdered B y: Kirby Pritchett on 02-01-2025 Monocytes/100 WBC (Bld) 4.9 % 0-10 [facility] Neutrophil percentageOrdered By: Kirby Pritchett on 02-01-2025 Neutrophils/100 WBC (Bld) 72.3 % High 47-70 [facility] Nucleated red blood cell per centageOrdered By: Kirby Pritchett on 02-01-2025 Nucleated RBC/100 WBC (Bld) [Ratio] 0 % 0-5 [facility] Partial Thromboplast Timeon 02-01-2025 aPTT Coag (Bld) [Time] 28.4 s Normal 24.1-36.2 [facility] Comment on above: Performed By: #### L 300.8000, L501.4021, L300.4310, L500.2500, L100.0100 #### [facility] [address] [place], [place], [id number] Platelet countOrdered By: Michelle Pritchett on 02-01-2025 Platelets (Bld) [#/Vol] 587 10*3/uL High 150-450 [facility] Potassium measurement (mass/ volume)Ordered By: Kirby Pritchett on 02-01-2025 Potassium (Unsp spec) [Mass/Vol] 3.2 mmol/L Low 3.3-5.1 [facility] RBC Auto (Bld) [#/Vol]Ordere d By: Kirby Pritchett on 02-01-2025 RBC (Bld) [#/Vol] 4.77 10*6/uL 4.2-5.4 [facility] Serum creatinine measurement (mass/volume)Ordered By: Kirby Pritchett on 02-01-2025 Creatinine [Mass/Vol] 0.70 mg/dL 0.70-1.20 [facility] Serum glucose measurement (m ass/volume)Ordered By: Kirby Pritchett on 02-01-2025 Glucose [Mass/Vol] 141 mg/dL High 70-99 [facility] Serum or plasma calcium ling urement (mass/volume)Ordered By: Kirby Pritchett on 02-01-2025 Calcium [Mass/Vol] 10.0 mg/dL 7.6-11.0 [facility] Serum or plasma urea nitroge n measurement (mass/volume)Ordered By: Kirby Pritchett on 02-01-2025 Urea nitrogen [Mass/Vol] 11 mg/dL 4-19 [facility] Sodium levelOrdered By: Adryan Pritchett on 02-01-2025 Sodium [Moles/Vol] 138 mmol/L 133-145 [facility] Troponin T.cardiac [Mass/vol ume] in Serum or Plasma by High sensitivity methodOrdered By: Kirby Pritchett on 02-01-2025 Troponin T.cardiac High sensitivity method [Mass/Vol] 9 ng/L <14 [facility] Troponin T.cardiac High sensitivity method [Mass/Vol] 10 ng/L <14 [facility] White blood cell (WBC) count Ordered By: Kirby Pritchett on 02-01-2025 WBC (Bld) [#/Vol] 9.3 10*3/uL 4.4-11.0 [facility] CBC W Auto Differential pane l (Bld)on 11-27-2024 Basophils (Bld) [#/Vol] 0.10 10*3/uL Normal <0.11 [facility] Comment on above: Order Comment: Speci men Type: BLOOD SPECIMEN Ordering Facility: [facility] Address: [address] [place], [place] [address] Performed By: #### 5 7021-8 #### [facility] CLIA [id number] [address] [place] [address] [place] Basophils/100 WBC (Bld) 0.8 % Normal [facility] Comment on above: Order Comment: Speci men Type: BLOOD SPECIMEN Ordering Facility: [facility] Address: [address] [place] [address] Performed By: #### 5 7021-8 #### [facility] CLIA [id number] [address] [place] [address] [place] Differential cell count method Nom (Bld) Auto Normal [facility] Comment on above: Order Comment: Speci men Type: BLOOD SPECIMEN Ordering Facility: [facility] Address: [address] [place] [address] Performed By: #### 5 7021-8 #### [facility] CLIA [id number] [address] [place] [address] [place] Eosinophils (Bld) [#/Vol] 0.42 10*3/uL Normal <0.46 [facility] Comment on above: Order Comment: Speci men Type: BLOOD SPECIMEN Ordering Facility: [facility] Address: [address] [place] [address] Performed By: #### 5 7021-8 #### [facility] CLIA [id number] [address] [place] [address] [place] Eosinophils/100 WBC (Bld) 3.2 % Normal [facility] Comment on above: Order Comment: Speci men Type: BLOOD SPECIMEN Ordering Facility: [facility] Address: [address] [place] [address] Performed By: #### 5 7021-8 #### [facility] CLIA [id number] [address] [place] [address] [place] Erythrocyte distribution width (RBC) [Ratio] 14.6 % Normal 11.5-15.0 [facility] Comment on above: Order Comment: Speci men Type: BLOOD SPECIMEN Ordering Facility: [facility] Address: [address] [place] [address] Performed By: #### 5 7021-8 #### [facility] CLIA [id number] [address] [place] [address] [place] Hematocrit (Bld) [Volume fraction] 41.5 % Normal 36.0-46.0 [facility] Comment on above: Order Comment: Speci men Type: BLOOD SPECIMEN Ordering Facility: [facility] Address: [address] [place] [address] Performed By: #### 5 7021-8 #### [facility] CLIA [id number] [address] [place] [address] [place] Hemoglobin (Bld) [Mass/Vol] 12.8 g/dL Normal 11.5-15.5 [facility] Comment on above: Order Comment: Speci men Type: BLOOD SPECIMEN Ordering Facility: [facility] Address: [address] [place] [address] Performed By: #### 5 7021-8 #### [facility] CLIA [id number] [address] [place] [address] [place] Immature granulocytes (Bld) [#/Vol] 0.14 10*3/uL High <0.10 [facility] Comment on above: Order Comment: Speci men Type: BLOOD SPECIMEN Ordering Facility: [facility] Address: [address] [place] [address] Performed By: #### 5 7021-8 #### [facility] CLIA [id number] [address] [place] [address] [place] Immature granulocytes/100 WBC (Bld) 1.1 % Normal [facility] Comment on above: Order Comment: Speci men Type: BLOOD SPECIMEN Ordering Facility: [facility] Address: [address] [place] [address] Performed By: #### 5 7021-8 #### [facility] CLIA [id number] [address] [place] [address] [place] Lymphocytes (Bld) [#/Vol] 2.40 10*3/uL Normal 1.00-4.00 [facility] Comment on above: Order Comment: Speci men Type: BLOOD SPECIMEN Ordering Facility: [facility] Address: [address] [place] [address] Performed By: #### 5 7021-8 #### [facility] CLIA [id number] [address] [place] [address] [place] Lymphocytes/100 WBC (Bld) 18.0 % Normal [facility] Comment on above: Order Comment: Speci men Type: BLOOD SPECIMEN Ordering Facility: [facility] Address: [address] [place] [address] Performed By: #### 5 7021-8 #### [facility] CLIA [id number] [address] [place] [address] [place] MCH (RBC) [Entitic mass] 26.5 pg Normal 26.0-34.0 [facility] Comment on above: Order Comment: Speci men Type: BLOOD SPECIMEN Ordering Facility: [facility] Address: [address] [place] [address] Performed By: #### 5 7021-8 #### [facility] CLIA [id number] [address] [place] [address] [place] MCHC (RBC) [Mass/Vol] 30.8 g/dL Normal 30.5-36.0 [facility] Comment on above: Order Comment: Speci men Type: BLOOD SPECIMEN Ordering Facility: [facility] Address: [address] [place] [address] Performed By: #### 5 7021-8 #### [facility] CLIA [id number] [address] [place] [address] [place] MCV (RBC) [Entitic vol] 85.9 fL Normal 80.0-100.0 [facility] Comment on above: Order Comment: Speci men Type: BLOOD SPECIMEN Ordering Facility: [facility] Address: [address] [place] [address] Performed By: #### 5 7021-8 #### [facility] CLIA [id number] [address] [place] [address] [place] Monocytes (Bld) [#/Vol] 0.89 10*3/uL High <0.87 [facility] Comment on above: Order Comment: Speci men Type: BLOOD SPECIMEN Ordering Facility: [facility] Address: [address] [place] [address] Performed By: #### 5 7021-8 #### [facility] CLIA [id number] [address] [place] [address] [place] Monocytes/100 WBC (Bld) 6.7 % Normal [facility] Comment on above: Order Comment: Speci men Type: BLOOD SPECIMEN Ordering Facility: [facility] Address: [address] [place] [address] Performed By: #### 5 7021-8 #### [facility] CLIA [id number] [address] [place] [address] [place] Neutrophils (Bld) [#/Vol] 9.36 10*3/uL High 1.45-7.50 [facility] Comment on above: Order Comment: Speci men Type: BLOOD SPECIMEN Ordering Facility: [facility] Address: [address] [place] [address] Performed By: #### 5 7021-8 #### [facility] CLIA [id number] [address] [place] [address] [place] Neutrophils/100 WBC (Bld) 70.2 % Normal [facility] Comment on above: Order Comment: Speci men Type: BLOOD SPECIMEN Ordering Facility: [facility] Address: [address] [place] [address] Performed By: #### 5 7021-8 #### [facility] CLIA [id number] [address] [place] [address] [place] Nucleated RBC (Bld) [#/Vol] 10*3/uL Normal <0.01 [facility] Comment on above: Order Comment: Speci men Type: BLOOD SPECIMEN Ordering Facility: [facility] Address: [address] [place] [address] Performed By: #### 5 7021-8 #### [facility] CLIA [id number] [address] [place] [address] [place] Nucleated RBC/100 WBC (Bld) [Ratio] 0.0 /[address] [facility] Comment on above: Order Comment: Speci men Type: BLOOD SPECIMEN Ordering Facility: [facility] Address: [address] [place] [address] Performed By: #### 5 7021-8 #### [facility] CLIA [id number] [address] [place] [address] [place] Platelet mean volume (Bld) [Entitic vol] 9.2 fL Normal 9.0-12.7 [facility] Comment on above: Order Comment: Speci men Type: BLOOD SPECIMEN Ordering Facility: [facility] Address: [address] [place] [address] Performed By: #### 5 7021-8 #### [facility] CLIA [id number] [address] [place] [address] [place] Platelets (Bld) [#/Vol] 552 10*3/uL High 150-400 [facility] Comment on above: Order Comment: Speci men Type: BLOOD SPECIMEN Ordering Facility: [facility] Address: [address] [place] [address] Performed By: #### 5 7021-8 #### [facility] CLIA [id number] [address] [place] [address] [place] RBC (Bld) [#/Vol] 4.83 10*6/uL Normal 3.90-5.20 [facility] Comment on above: Order Comment: Speci men Type: BLOOD SPECIMEN Ordering Facility: [facility] Address: [address] [place] [address] Performed By: #### 5 7021-8 #### [facility] CLIA [id number] [address] [place] [address] [place] WBC (Bld) [#/Vol] 13.31 10*3/uL High 3.70-11.00 [facility] Comment on above: Order Comment: Speci men Type: BLOOD SPECIMEN Ordering Facility: [facility] Address: [address] [place] [address] Performed By: #### 5 7021-8 #### [facility] CLIA [id number] [address] [place] [address] [place] CRP SerPl-mCncon 11-27-2024 CRP [Mass/Vol] 5.4 mg/dL High <0.9 [facility] Comment on above: Order Comment: Speci men Type: BLOOD SPECIMEN Ordering Facility: [facility] Address: [address] [place] [address] Performed By: #### 5 5454-3 #### [facility] CLIA [id number] [address] [place] [address] [place] Comprehensive metabolic 2000 panelon 11-27-2024 Albumin [Mass/Vol] 4.2 g/dL Normal 3.9-4.9 [facility] Comment on above: Order Comment: Speci men Type: BLOOD SPECIMEN Ordering Facility: [facility] Address: [address] [place] [address] Performed By: #### 2 4323-8 #### [facility] CLIA [id number] [address] [place] [address] [place] ALP [Catalytic activity/Vol] 96 U/L Normal 34-123 [facility] Comment on above: Order Comment: Speci men Type: BLOOD SPECIMEN Ordering Facility: [facility] Address: [address] [place] [address] Performed By: #### 2 4323-8 #### [facility] CLIA [id number] [address] [place] [address] [place] ALT [Catalytic activity/Vol] 8 U/L Normal 7-38 [facility] Comment on above: Order Comment: Speci men Type: BLOOD SPECIMEN Ordering Facility: [facility] Address: [address] [place] [address] Performed By: #### 2 4323-8 #### [facility] CLIA [id number] [address] [place] [address] [place] Anion gap [Moles/Vol] 13 mmol/L Normal 8-15 [facility] Comment on above: Order Comment: Speci men Type: BLOOD SPECIMEN Ordering Facility: [facility] Address: [address] [place] [address] Performed By: #### 2 4323-8 #### [facility] CLIA [id number] [address] [place] [address] [place] AST [Catalytic activity/Vol] 10 U/L Low 13-35 [facility] Comment on above: Order Comment: Speci men Type: BLOOD SPECIMEN Ordering Facility: [facility] Address: [address] [place] [address] Performed By: #### 2 4323-8 #### [facility] CLIA [id number] [address] [place] [address] [place] Bilirubin [Mass/Vol] 0.4 mg/dL Normal 0.2-1.3 [facility] Comment on above: Order Comment: Speci men Type: BLOOD SPECIMEN Ordering Facility: [facility] Address: [address] [place] [address] Performed By: #### 2 4323-8 #### [facility] CLIA [id number] [address] [place] [address] [place] Calcium [Mass/Vol] 9.9 mg/dL Normal 8.5-10.2 [facility] Comment on above: Order Comment: Speci men Type: BLOOD SPECIMEN Ordering Facility: [facility] Address: [address] [facility] [place] [address] Performed By: #### 2 4323-8 #### [facility] CLIA [id number] [address] [place] [address] [place] Chloride [Moles/Vol] 98 mmol/L Normal 98-107 [facility] Comment on above: Order Comment: Speci men Type: BLOOD SPECIMEN Ordering Facility: [facility] Address: [facility] [place] [address] Performed By: #### 2 4323-8 #### [facility] CLIA [id number] [address] [place] [address] [place] CO2 [Moles/Vol] 25 mmol/L Normal 22-30 [facility] Comment on above: Order Comment: Speci men Type: BLOOD SPECIMEN Ordering Facility: [facility] Address: [address] [place] [address] Performed By: #### 2 4323-8 #### [facility] CLIA [id number] [address] [place] [address] [place] Creatinine [Mass/Vol] 0.73 mg/dL Normal 0.58-0.96 [facility] Comment on above: Order Comment: Speci men Type: BLOOD SPECIMEN Ordering Facility: [facility] Address: [address] [place] [address] Performed By: #### 2 4323-8 #### [facility] CLIA [id number] [address] [place] [address] [place] Creatinine and Glomerular filtration rate.predicted panel (S/P/Bld) 91 mL/min/1.73m??? Normal >=60 [facility] Comment on above: Order Comment: Clarita clark Type: BLOOD SPECIMEN Ordering Facility: [facility] Address: [address] [place] [address] Result Comment: Dianne mated Glomerular Filtration Rate (eGFR) is calculated using the 2020 CKD-EPI creatinine equation. This equation utilizes serum creatinine, sex, and age as parameters. The creatinine assay has traceable calibration to isotope dilution-mass spectrometry. Refer to KDIGO guidelines for clinical interpretation. In patients with unstable renal function, e.g. those with acute kidney injury, the eGFR may not accurately reflect actual GFR. Performed By: #### 2 4323-8 #### [facility] [id number] [address] [place] [address] [place] Glucose [Mass/Vol] 127 mg/dL High 74-99 [facility] Comment on above: Order Comment: Clarita clark Type: BLOOD SPECIMEN Ordering Facility: [facility] Address: [address] [place] [address] Result Comment: The [place] Diabetes Association (ADA) provides guidance for cutoff [...] Standards of Medical Care in Diabetes 2016, [place] Diabetes Association. Diabetes Care. 2016.39(Suppl 1). Performed By: #### 2 4323-8 #### [facility] [id number] [address] [place] [address] [place] Potassium [Moles/Vol] 3.5 mmol/L Low 3.7-5.1 [facility] Comment on above: Order Comment: Speci men Type: BLOOD SPECIMEN Ordering Facility: [facility] Address: [address] [place] [address] Performed By: #### 2 4323-8 #### [facility] CLIA [id number] [address] [place] [address] [place] Protein [Mass/Vol] 7.9 g/dL Normal 6.3-8.0 [facility] Comment on above: Order Comment: Speci men Type: BLOOD SPECIMEN Ordering Facility: [facility] Address: [address] [place], [place] [address] Performed By: #### 2 4323-8 #### [facility] CLIA [id number] [address] [place] [address] [place] Sodium [Moles/Vol] 136 mmol/L Normal 136-144 [facility] Comment on above: Order Comment: Speci men Type: BLOOD SPECIMEN Ordering Facility: [facility] Address: [address] [place], [place] [address] Performed By: #### 2 4323-8 #### [facility] CLIA [id number] [address] [place] [address] [place] Urea nitrogen [Mass/Vol] 16 mg/dL Normal 7-21 [facility] Comment on above: Order Comment: Speci men Type: BLOOD SPECIMEN Ordering Facility: [facility] Address: [address] [place] [address] Performed By: #### 2 4323-8 #### [facility] CLIA [id number] [address] [place] [address] [place] ESR Westergren method (Bld) [Velocity]on 11-27-2024 ESR (Bld) [Velocity] 54 mm/h High 0-20 [facility] [place] [facility] Comment on above: Order Comment: Speci men Type: BLOOD SPECIMEN Ordering Facility: [facility] Address: [address] [place] [address] Performed By: #### 4 537-7 #### [facility] [place] [id number] [address] [place] [address] OF [facility] HbA1c (Bld)on 11-27-2024 Average glucose Estimated from glycated hemoglobin (Bld) [Mass/Vol] 103 mg/dL Normal [facility] Comment on above: Order Comment: Clarita clark Type: BLOOD SPECIMEN Ordering Facility: [facility] Address: [address] [place] [address] Result Comment: eAG: (Estimated average glucose) is a calculated value from HgbA1c and is automotive sales representative of the average blood glucose level in the last 2-3 month period. Performed By: #### 5 5454-3 #### [facility] [place] [id number] [address] [place] [address] HbA1c (Bld) [Mass fraction] 5.2 % Normal 4.3-5.6 [facility] Comment on above: Order Comment: Clarita clark Type: BLOOD SPECIMEN Ordering Facility: [facility] Address: [address] [place] [address] Result Comment: Amer [place] Diabetes Association guidelines indicate that patients with HgbA1c in the range 5.7-6.4% are at increased risk for development of diabetes, and intervention by lifestyle modification may be beneficial. HgbA1c greater or equal to 6.5% is considered diagnostic of diabetes. Performed By: #### 5 5454-3 #### [facility] [place] [id number] [address] [place] [address] Nimesh 11-14-2024 CNPN Telephone (RHBATH) FRANCIE MORENO ([id number]) 1960 F Date Time Provider Department 11/14/24 KELLY LOWE During your visit today, we recorded the following information about you: Laura Nelson LPN 11/14/2024 1:34 PM Signed Patient called asking if she can have Kelly Lowe PA-C give her a call. Patient states she is in so much pain and she would like to get back on the prednisone. Patient states, I am just a wreck. Patient complains of brain fog with her new medication. Patient states, It's not doing anything. Patient tearful during the telephone call. Patient states, she told me if Dr. Odom would not prescribe the prednisone and if he doesn't she would prescribe it and she would just give me half. Constant pain Large joints Not able to walk Migraines Patient states, I can't take this pain anymore. Patient states, I am not suicidal. Patient scheduled on 12/05/2024. Scheduled for vv on 11/15/2024. Provided number for [employer]k, . Laura Nelson LPN Allergies As of Date: 11/14/2024 Noted Allergy Reaction INFLECTRA (INFLIXIMAB-DYYB) 10/24/2024 2 - Rash MOLD 06/21/2019 14 - Other: See Comments Comments: sneezing/sinus infections POLLEN 02/19/2010 9 - Itching Date Reviewed: 10/24/2024 Reviewed by: Laura Nelson LPN - Fully Assessed Reason for Visit: Patient Question [8288] Prescriptions as of 11/14/2024 - Cholecalciferol, Vitamin [...] mg by mouth once daily. - fexofenadine (ALLIE) 180 mg tablet Take 180 mg by mouth once daily. - omeprazole (PRILOSEC) 20 mg capsule Take 20 mg by mouth once daily. 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] 05/12/2016 Family history of ischemic heart disease [Z82.4*05/12/2016 Pulmonary hypertension, secondary (HCC) [XLZ056*05/12/2016 Chronic obstructive pulmonary disease (HCC) [J4*05/12/2016 High risk medication use [Z79.899] 08/21/2018 RA (rheumatoid arthritis) (HCC) [M06.9] 09/22/2018 11/16/2022 Rheumatoid arthritis of multiple sites without *06/12/2021 Infective arthritis (HCC) [M00.9] 02/23/2023 Encounter Status:Closed by LAURA NELSON on 11/14/24 [facility] Nimesh 11-07-2024 JDN Telephone (AGRHEUHWN ) FRANCIE MORENO ([id number]) 1960 F Date Time Provider Department 11/07/24 KELLY LOWEUHSALMA During your visit today, we recorded the [...] Laura Nelson LPN 11/09/2024 2:27 PM Signed [facility] RISHI Forman Tina, LPN 11/09/2024 3:07 PM [...] mg by mouth once daily. - fexofenadine (ALLIE) 180 mg tablet Take 180 mg by mouth once daily. - omeprazole (PRILOSEC) 20 mg capsule Take 20 mg by mouth once daily. 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] 05/12/2016 Family history of ischemic heart disease [Z82.4*05/12/2016 Pulmonary hypertension, secondary (HCC) [HRW534*05/12/2016 Chronic obstructive pulmonary disease (HCC) [J4*05/12/2016 High risk medication use [Z79.899] 08/21/2018 RA (rheumatoid arthritis) (HCC) [M06.9] 09/22/2018 11/16/2022 Rheumatoid arthritis of multiple sites without *06/12/2021 Infective arthritis (HCC) [M00.9] 02/23/2023 Encounter Status:Closed by KELLY LOWE on 11/07/24 [facility] CNPN Telephone ([employer]-i[employer] SolutionsATH) JOSHFRANCIE Sugey ([id number]) 1960 F Date Time Provider Department 11/07/24 [...] asked her PCP to refer her to General Matcher. RISHI Forman Megan, PA-C 11/07/2024 4:54 PM [...] mg by mouth once daily. - fexofenadine (ALLIE) 180 mg tablet Take 180 mg by mouth once daily. - omeprazole (PRILOSEC) 20 mg capsule Take 20 mg by mouth once daily. 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] 05/12/2016 Family history of ischemic heart disease [Z82.4*05/12/2016 Pulmonary hypertension, secondary (HCC) [VDP418*05/12/2016 Chronic obstructive pulmonary disease (HCC) [J4*05/12/2016 High risk medication use [Z79.899] 08/21/2018 RA (rheumatoid arthritis) (HCC) [M06.9] 09/22/2018 11/16/2022 Rheumatoid arthritis of multiple sites without *06/12/2021 Infective arthritis (HCC) [M00.9] 02/23/2023 Encounter Status:Closed by LAURA NELSON on 11/07/24 [facility] Nimesh 11-01-2024 JD Telephone (AGRHEUHWN ) JOSHFRANCIE Mayes ([id number]) 1960 F Date Time Provider Department 11/01/24 KELLY LOWE During your visit today, we recorded the following information about you: Go Kendall MA 11/01/2024 2:32 PM Signed Sherin called from [facility] Ilene Dias will not manage patient prednisone,it should be manage by a sole assessor. I was seen today and patient did not get prednisone. Kelly Lowe PA-C 11/01/2024 2:41 PM Signed PCP gave pt prednisone taper and she was on last few days of this taper. I was not restarting prednisone for her, I put her on DMARD therapy. 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 Started Arava 10 mg daily with close follow up. starting prednisone from her PCP. Started at 40 mg x 5 days, then 20 mg x 5 days, now on 10 mg... Today is her first day on 10 mg pred. Will do this for 5 days then the taper will be complete. The patient presents today for follow up of RA after a 16 month hiatus from follow up. She has synovitis and tenderness as described above. Has not been on Arava, will start this today. Referral to hematology for abnormal SPEP. Repeat labs in 4 weeks after starting Arava to monitor for drug toxicity. Continue pred taper as per PCP directions. Go Kendall MA 11/02/2024 9:13 AM Signed [...] mg by mouth once daily. - fexofenadine (ALLIE) 180 mg tablet Take 180 mg by mouth once daily. - omeprazole (PRILOSEC) 20 mg capsule Take 20 mg by mouth once daily. 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] 05/12/2016 Family history of ischemic heart disease [Z82.4*05/12/2016 Pulmonary hypertension, secondary (HCC) [KNS695*05/12/2016 Chronic obstructive pulmonary disease (HCC) [J4*05/12/2016 High risk medication use [Z79.899] 08/21/2018 RA (rheumatoid arthritis) ([facility]) [M06.9] 09/22/2018 11/16/2022 Rheumatoid arthritis of multiple sites without *06/12/2021 Infective arthritis ([facility]) [M00.9] 02/23/2023 Encounter Status:Closed by KELLY LOWE on 11/01/24 [facility] CNOVon 10-24-2024 CNOV Office Visit (RHBATH ) MORENOFRANCIE Sugey ([id number]) 1960 F Date Time Provider Department 10/24/24 11:40 AM [facility] During your visit today, we recorded the following information about you: Temperature Pulse Respiration Blood pressure 98 degrees 76/minute 13/minute 163/88 Weight Height 86.1 kg 1.576 m Kelly Lowe PA-C 10/30/2024 11:25 AM Signed [facility] Rhe[facility] Kelly Lowe [address] [place] [address] Subjective Last OV: 06/08/23 HPI: Francie Moreno is a 64 year old female who [...] use, marijuana gummies; CARDIAC STENT (2015 - [place]) Initial rheumatology visit [facility] (06/02/2018 Dr. Su): 58 year old female [...] is of prednisone. Hr last visit with sole assessor was in . She also has BMD, x rays, blood work in apr. She was also presribed SSZ which did not help. Had steroid injection. Leflunamide did not hlp RA involved knees and hands. At present she reports swelling of knees. On prednisone She also has fibromyalgia and reports sharp pain with every step. tail bone pain H/o [place] in 2016. episodes of dizziness and was [...] (Temporal) Resp 13 Ht 157.6 cm (5' 2.05) Wt 86.1 kg (189 lb 13.1 oz) SpO2 95% BMI 34.67 kg/m? GENERAL: Well appearing, alert, comfortable, in no acute d (more content not included)... Normal [facility] ANTINUCLEAR ANTIBODIES DIREC Ton 10-15-2024 FLORA,DIRECT Negative Normal Negative [facility] Comment on above: Order Comment: Order Date: 10/11/24Order Info: [id number] - FLORA Result Comment: Perf ormed at: CB - [facility] [address] [id number] Clerk Typist: Bart Goff PhD, Phone: [phone] Performed By: #### L 300.8000, L501.4021, L300.4310, L500.2500, L100.0100 #### [facility] [address] [place], [address] Protein Electroph, Son 10-15 Albumin [Mass/Vol] 3.0 g/dL Normal 2.9-4.4 [facility] Comment on above: Order Comment: Order Date: 10/11/24Order Info: 0060-1 - PROEL Performed By: #### L 300.8000, L501.4021, L300.4310, L500.2500, L100.0100 #### [facility] [address] [place], [address] Albumin/Globulin [Mass ratio] 0.8 {ratio} Normal 0.7-1.7 [facility] Comment on above: Order Comment: Order Date: 10/11/24Order Info: 0060-1 - PROEL Performed By: #### L 300.8000, L501.4021, L300.4310, L500.2500, L100.0100 #### [facility] [address] [place], [address] ALPHA-1 GLOBUL 0.4 g/dL Normal 0.0-0.4 [facility] Comment on above: Order Comment: Order Date: 10/11/24Order Info: 0060-1 - PROEL Performed By: #### L 300.8000, L501.4021, L300.4310, L500.2500, L100.0100 #### [facility] [address] [place], [address] ALPHA-2 GLOBUL 1.2 g/dL High 0.4-1.0 [facility] Comment on above: Order Comment: Order Date: 10/11/24Order Info: 0060-1 - PROEL Performed By: #### L 300.8000, L501.4021, L300.4310, L500.2500, L100.0100 #### [facility] [address] [place], [address] BETA GLOBULIN 1.4 g/dL High 0.7-1.3 [facility] Comment on above: Order Comment: Order Date: 10/11/24Order Info: 0060-1 - PROEL Performed By: #### L 300.8000, L501.4021, L300.4310, L500.2500, L100.0100 #### [facility] [address] [place], [address] GAMMA GLOBULIN 1.0 g/dL Normal 0.4-1.8 [facility] Comment on above: Order Comment: Order Date: 10/11/24Order Info: 0060-1 - PROEL Performed By: #### L 300.8000, L501.4021, L300.4310, L500.2500, L100.0100 #### [facility] [address] [place], [place], [id number] (259) Globulin (S) [Mass/Vol] 4.0 g/dL High 2.2-3.9 [facility] Comment on above: Order Comment: Order Date: 10/11/24Order Info: 0060-1 - PROEL Performed By: #### L 300.8000, L501.4021, L300.4310, L500.2500, L100.0100 #### [facility] [address] [place], [place], [address] INTERPRETATION Comment Normal . [facility] Comment on above: Order Comment: Order Date: 10/11/24Order Info: 0060-1 - PROEL Result Comment: Prot ein electrophoresis scan will follow via computer, mail, or waterproofer delivery. Performed By: #### L 300.8000, L501.4021, L300.4310, L500.2500, L100.0100 #### [facility] [address] [place], [address] M-SPIKE Comment: Normal Not Observed [facility] Comment on above: Order Comment: Order Date: 10/11/24Order Info: 0060-1 - PROEL Result Comment: SPE shows an asymmetrical gamma. Performed By: #### L 300.8000, L501.4021, L300.4310, L500.2500, L100.0100 #### [facility] [address] [place], [place], [address] NOTE: Comment Normal . [facility] Comment on above: Order Comment: Order Date: 10/11/24Order Info: 0060-1 - PROEL Result Comment: Ap t band in gamma region suspicious for monoclonal immunoglobulin. This band may represent a benign spike as seen in older people or could be a paraprotein as seen in Multiple Myeloma, Waldenstrom's Macroglobulinemia or Lymphoma. Depending on clinical circumstances, further diagnostic studies may include serum immunofixation or serum free light chain quantitation. Performed at: [address] [id number] Clerk Typist: Bart Goff PhD, Phone: [phone] Performed By: #### L 300.8000, L501.4021, L300.4310, L500.2500, L100.0100 #### [facility] [address] [place], [place], [address] Protein [Mass/Vol] 7.0 g/dL Normal 6.0-8.5 [facility] Comment on above: Order Comment: Order Date: 10/11/24Order Info: 0060-1 - PROEL Performed By: #### L 300.8000, L501.4021, L300.4310, L500.2500, L100.0100 #### [facility] [address] [place], [address] CNPDayna 10-12-2024 JDN Telephone (RHBATH) FRANCIE MORENO ([id number]) 1960 F Date Time Provider Department 10/12/24 SHELLY SU [facility] During your visit today, we recorded the following information about you: Saba Pulido 10/12/2024 3:00 PM Signed Patient is severely distressed and depressed. She even states she went into a deep depression last month She needs phychiatric help and and she wants it but states her insurance will not cover this treatment in [facility]. She denied saying to her PCP that she had been reaching out to us and that we were not responding. She told me that we have reached out to her several times (Laura and Jen) However, she does not have transportation up to our office from [place] and is to afraid of transportation with a provide a ride situation. Very high anxiety. I did not get her scheduled at this time she wants to check with her daughter for her next day off and she promises she will call Laura at [phone]. I do not want her getting lost in the system since I will not be here. I will bring Laura up to date. Saba Pulido Shelly Su MD 10/15/2024 9:46 AM Signed Jet Palmer follow up with her on phone in a week Laura Nelson LPN 10/15/2024 11:44 AM Signed iN Banda (Daughter) FYI Patient scheduled, see below. Kelly- Please see telephone message 10/11/2024. Laura Nelson LPN Provider Department Encounter # Center 10/24/2024 11:40 AM Kelly Lowe [facility]-C [facility] Provider Department Encounter # Center 02/18/2025 11:40 AM Shelly Su MD [facility] Allergies As of Date: 10/12/2024 Noted [...] mg by mouth once daily. - fexofenadine (ALLIE) 180 mg tablet Take 180 mg by mouth once daily. - omeprazole (PRILOSEC) 20 mg capsule Take 20 mg by mouth once daily. 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] 05/12/2016 Family history of ischemic heart disease [Z82.4*05/12/2016 Pulmonary hypertension, secondary (HCC) [IMH175*05/12/2016 Chronic obstructive pulmonary disease (HCC) [J4*05/12/2016 High risk medication use [Z79.899] 08/21/2018 RA (rheumatoid arthritis) (HCC) [M06.9] 09/22/2018 11/16/2022 Rheumatoid arthritis of multiple sites without *06/12/2021 Infective arthritis (HCC) [M00.9] 02/23/2023 Encounter Status:Closed by LAURA NELSON on 10/15/24 [facility] Absolute lymphocyte countOrd ered By: Henrry Odom on 10-11-2024 Lymphocytes Auto (Unsp spec) [#/Vol] 2.22 10*3/uL 0.83-4.51 [facility] Absolute neutrophil countOrd ered By: Henrry Odom on 10-11-2024 Neutrophils (Bld) [#/Vol] 6.9 10*3/uL 2.0-7.7 [facility] Albumin to globulin ratioOrd ered By: Henrry Odom on 10-11-2024 Albumin/Globulin [Mass ratio] 0.6 {ratio} Low 0.9-2.4 [facility] Automated lymphocyte count a s percentage of total leukocytesOrdered By: Henrry Odom on 10-11-2024 Lymphocytes/100 WBC Auto (Unsp spec) 21.4 % 19-41 [facility] Basophil percentageOrdered B y: Henrry Odom on 10-11-2024 Basophils/100 WBC (Bld) 0.8 % 0-1 [facility] Bilirubin, totalOrdered By: Henrry Odom on 10-11-2024 Bilirubin [Mass/Vol] 0.50 mg/dL 0.20-1.00 [facility] Comment on above: For patients on eltr ombopag therapy, use of Dimension [place] TBIL is not recommended. Blood urea nitrogen (BUN)/cr eatinine ratioOrdered By: Henrry Odom on 10-11-2024 Urea nitrogen/Creatinine [Mass ratio] 19.6 mg/mg 10-20 [facility] C-reactive protein measureme nt by high sensitivity methodOrdered By: [facility] Odom on 10-11-2024 C-reactive protein measurement by high sensitivity method 83.70 mg/L High 0.0-3.0 [facility] Comment on above: C-Reactive Protein ( CRP) provides useful information for thediagnosis, therapy and monitoring of inflammatory processesand associated diseases. For the evaluation of Relative Riskfor Cardiovascular Disease, a High Sensitivity CRP (HSCRP)should be ordered. CBC W/Diff, Automatedon Absolute Lymph 2.22 X10 3/uL Normal 0.83-4.51 [facility] Comment on above: Order Comment: Order Date: 05/24/24 Order Info: 0184-1 - CBCD Order Info: [id number] - SED Performed By: #### L 501.9520, L100.0100, L101.9900, L506.1000, L500.4050, L503.0105, L500.4100 #### [facility] [address] [place], [place] [address]maria luisa. [place], [place], [id number] Absolute Neut 6.9 X10 3/uL Normal 2.0-7.7 [facility] Comment on above: Order Comment: Order Date: 05/24/24 Order Info: 01812-04 - CBCD Order Info: [id number] - SED Performed By: #### L 501.9520, L100.0100, L101.9900, L506.1000, L500.4050, L503.0105, L500.4100 #### [facility] [address] [place], [address] Basophils/100 WBC (Bld) 0.8 % Normal 0-1 [facility] Comment on above: Order Comment: Order Date: 05/24/24 Order Info: 183-09 - CBCD Order Info: [id number] - SED Performed By: #### L 501.9520, L100.0100, L101.9900, L506.1000, L500.4050, L503.0105, L500.4100 #### [facility] [address] [place], [address] Eosinophils/100 WBC (Bld) 3.3 % Normal 0-5 [facility] Comment on above: Order Comment: Order Date: 05/24/24 Order Info: 01812-04 - CBCD Order Info: [id number] - SED Performed By: #### L 501.9520, L100.0100, L101.9900, L506.1000, L500.4050, L503.0105, L500.4100 #### [facility] [address] [place], [address] Erythrocyte distribution width (RBC) [Ratio] 13.8 % Normal 11.6-14.6 [facility] Comment on above: Order Comment: Order Date: 05/24/24 Order Info: 018- - CBCD Order Info: [id number] - SED Performed By: #### L 501.9520, L100.0100, L101.9900, L506.1000, L500.4050, L503.0105, L500.4100 #### [facility] [address] [place], [address] Hematocrit (Bld) [Volume fraction] 35.8 % Low 37-47 [facility] Comment on above: Order Comment: Order Date: 05/24/24 Order Info: 01812-04 - CBCD Order Info: [id number] - SED Performed By: #### L 501.9520, L100.0100, L101.9900, L506.1000, L500.4050, L503.0105, L500.4100 #### [facility] [address] [place], [address] Hemoglobin (Bld) [Mass/Vol] 11.2 g/dL Low 12.0-15.0 [facility] Comment on above: Order Comment: Order Date: 05/24/24 Order Info: 183-09 - CBCD Order Info: [id number] - SED Performed By: #### L 501.9520, L100.0100, L101.9900, L506.1000, L500.4050, L503.0105, L500.4100 #### [facility] [address] [place], [address] IG% 1.200 High 0.0-0.9 [facility] Comment on above: Order Comment: Order Date: 05/24/24 Order Info: 01812-04 - CBCD Order Info: [id number] - SED Result Comment: IG% - Immature Granulocytes (promyelocytes, myelocytes and metamyelocytes) > 1% indicates that a LEFT SHIFT is Present. Performed By: #### L 501.9520, L100.0100, L101.9900, L506.1000, L500.4050, L503.0105, L500.4100 #### [facility] [address] [place], [address] Lymphocytes/100 WBC (Bld) 21.4 % Normal 19-41 [facility] Comment on above: Order Comment: Order Date: 05/24/24 Order Info: [id number] - CBCD Order Info: - SED Performed By: #### L 501.9520, L100.0100, L101.9900, L506.1000, L500.4050, L503.0105, L500.4100 #### [facility] [address] [place], [address] MCH (RBC) [Entitic mass] 27.2 pg Normal 27.0-32.0 [facility] Comment on above: Order Comment: Order Date: 05/24/24 Order Info: [id number] - CBCD Order Info: - SED Performed By: #### L 501.9520, L100.0100, L101.9900, L506.1000, L500.4050, L503.0105, L500.4100 #### [facility] [address] [place], [address] MCHC (RBC) [Mass/Vol] 31.3 g/dL Low 32-36 [facility] Comment on above: Order Comment: Order Date: 05/24/24 Order Info: [id number] - CBCD Order Info: - SED Performed By: #### L 501.9520, L100.0100, L101.9900, L506.1000, L500.4050, L503.0105, L500.4100 #### [facility] [address] [place], [address] MCV (RBC) [Entitic vol] 86.9 fL Normal 81-99 [facility] Comment on above: Order Comment: Order Date: 05/24/24 Order Info: 183-09 - CBCD Order Info: [id number] - SED Performed By: #### L 501.9520, L100.0100, L101.9900, L506.1000, L500.4050, L503.0105, L500.4100 #### [facility] [address] [place], [address] Monocytes/100 WBC (Bld) 6.6 % Normal 0-10 [facility] Comment on above: Order Comment: Order Date: 05/24/24 Order Info: 018- - CBCD Order Info: [id number] - SED Performed By: #### L 501.9520, L100.0100, L101.9900, L506.1000, L500.4050, L503.0105, L500.4100 #### [facility] [address] [place], [address] Neutrophils/100 WBC (Bld) 66.7 % Normal 47-70 [facility] Comment on above: Order Comment: Order Date: 05/24/24 Order Info: [id number] - CBCD Order Info: [id number] - SED Performed By: #### L 501.9520, L100.0100, L101.9900, L506.1000, L500.4050, L503.0105, L500.4100 #### [facility] [address] [place], [address] Nucleated RBC (Bld) [#/Vol] 0 10*3/uL Normal 0-5 [facility] Comment on above: Order Comment: Order Date: 05/24/24 Order Info: 0184- - CBCD Order Info: [id number] - SED Performed By: #### L 501.9520, L100.0100, L101.9900, L506.1000, L500.4050, L503.0105, L500.4100 #### [facility] [address] [place], [address] Platelet mean volume (Bld) [Entitic vol] 9.5 fL Normal 6.2-12.0 [facility] Comment on above: Order Comment: Order Date: 05/24/24 Order Info: 0184- - CBCD Order Info: [id number] - SED Performed By: #### L 501.9520, L100.0100, L101.9900, L506.1000, L500.4050, L503.0105, L500.4100 #### [facility] [address] [place], [address] Platelets (Bld) [#/Vol] 657 10*3/uL High 150-450 [facility] Comment on above: Order Comment: Order Date: 05/24/24 Order Info: 0184-1 - CBCD Order Info: [id number] - SED Performed By: #### L 501.9520, L100.0100, L101.9900, L506.1000, L500.4050, L503.0105, L500.4100 #### [facility] [address] [place], [address] RBC (Bld) [#/Vol] 4.12 10*6/uL Low 4.2-5.4 [facility] Comment on above: Order Comment: Order Date: 05/24/24 Order Info: 0184- - CBCD Order Info: [id number] - SED Performed By: #### L 501.9520, L100.0100, L101.9900, L506.1000, L500.4050, L503.0105, L500.4100 #### [facility] [address] [place], [address] RDW SD 43.8 fl Normal 35.1-43.9 [facility] Comment on above: Order Comment: Order Date: 05/24/24 Order Info: 0184-1 - CBCD Order Info: [id number] - SED Performed By: #### L 501.9520, L100.0100, L101.9900, L506.1000, L500.4050, L503.0105, L500.4100 #### [facility] [address] [place], [address] WBC (Bld) [#/Vol] 10.4 10*3/uL Normal 4.4-11.0 [facility] Comment on above: Order Comment: Order Date: 05/24/24 Order Info: [id number] - CBCD Order Info: [id number] - SED Performed By: #### L 501.9520, L100.0100, L101.9900, L506.1000, L500.4050, L503.0105, L500.4100 #### [facility] [place], [address] 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 - fexofenadine (ALLIE) 180 mg tablet Take 180 mg by mouth once daily. - omeprazole (PRILOSEC) 20 mg capsule Take 20 mg by mouth once daily. 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] 05/12/2016 Family history of ischemic heart disease [Z82.4*05/12/2016 Pulmonary hypertension, secondary (HCC) [VNI870*05/12/2016 Chronic obstructive pulmonary disease (HCC) [J4*05/12/2016 High risk medication use [Z79.899] 08/21/2018 RA (rheumatoid arthritis) (HCC) [M06.9] 09/22/2018 11/16/2022 Rheumatoid arthritis of multiple sites without *06/12/2021 Infective arthritis (HCC) [M00.9] 02/23/2023 Encounter Status:Closed by SHELLY SU on 10/11/24 [facility] CRPon 10-11-2024 C-REACTIVE PROT 83.70 mg/L High 0.0-3.0 [facility] Comment on above: Order Comment: Order Date: 05/24/24Order Info: [id number] - CMPOrder Info: [id number] - LIPIDOrder Date: 10/11/24Order Info: [id number] - URICOrder Info: [id number] - CRPOrder Info: [id number] - TSHOrder Info: [id number] - RA Result Comment: C-Re active Protein (CRP) provides useful information for the diagnosis, therapy and monitoring of inflammatory processes and associated diseases. For the evaluation of Relative Risk for Cardiovascular Disease, a High Sensitivity CRP (HSCRP) should be ordered. Performed By: #### L 503.7505 #### [facility] [address] [place], [place], [address] Carbon dioxide measurementOr dered By: Henrry Odom on 10-11-2024 CO2 [Moles/Vol] 27.0 mmol/L 21.0-32.0 [facility] Chloride measurementOrdered By: Henrry Odom on 10-11-2024 Chloride [Moles/Vol] 104 mmol/L 98-107 [facility] Comprehensive Metabolic Prof ilon 10-11-2024 Albumin [Mass/Vol] 3.0 g/dL Low 3.2-5.0 [facility] Comment on above: Order Comment: Order Date: 05/24/24Order Info: [id number] - CMPOrder Info: [id number] - LIPIDOrder Date: 10/11/24Order Info: 3084-1 - URICOrder Info: [id number] - CRPOrder Info: [id number] - TSHOrder Info: [id number] - RA Performed By: #### L 503.7505 #### [facility] [address] [place], [address] Albumin/Globulin [Mass ratio] 0.6 {ratio} Low 0.9-2.4 [facility] Comment on above: Order Comment: Order Date: 05/24/24Order Info: [id number] - CMPOrder Info: [id number] - LIPIDOrder Date: 10/11/24Order Info: [id number] - URICOrder Info: [id number] - CRPOrder Info: [id number] - TSHOrder Info: [id number] - RA Performed By: #### L 503.7505 #### [facility] [address] [place], [place], [address] ALK P 82 U/L Normal 45-117 [facility] Comment on above: Order Comment: Order Date: 05/24/24Order Info: [id number] - CMPOrder Info: [id number] - LIPIDOrder Date: 10/11/24Order Info: [id number] - URICOrder Info: [id number] - CRPOrder Info: [id number] - TSHOrder Info: [id number] - RA Performed By: #### L 503.7505 #### [facility] [address] [place], [address] ALT [Catalytic activity/Vol] 9 U/L Low 13-56 [facility] Comment on above: Order Comment: Order Date: 05/24/24Order Info: [id number] - CMPOrder Info: [id number] - LIPIDOrder Date: 10/11/24Order Info: [id number] - URICOrder Info: [id number] - CRPOrder Info: [id number] - TSHOrder Info: [id number] - RA Performed By: #### L 503.7505 #### [facility] [address] [place], [address] AST [Catalytic activity/Vol] 7 U/L Low 15-37 [facility] Comment on above: Order Comment: Order Date: 05/24/24Order Info: 0786-1 - CMPOrder Info: [id number] - LIPIDOrder Date: 10/11/24Order Info: 3084-1 - URICOrder Info: [id number] - CRPOrder Info: [id number] - TSHOrder Info: [id number] - RA Performed By: #### L 503.7505 #### [facility] [address] [place], [place], [address] Bilirubin [Mass/Vol] 0.50 mg/dL Normal 0.20-1.00 [facility] Comment on above: Order Comment: Order Date: 05/24/24Order Info: 0786-1 - CMPOrder Info: [id number] - LIPIDOrder Date: 10/11/24Order Info: 3084-1 - URICOrder Info: [id number] - CRPOrder Info: [id number] - TSHOrder Info: [id number] - RA Result Comment: For patients on eltrombopag therapy, use of Dimension [place] TBIL is not recommended. Performed By: #### L 503.7505 #### [facility] [address] [place], [place], [address] (764) BUN/CRE 19.6 RATIO Normal 10-20 [facility] Comment on above: Order Comment: Order Date: 05/24/24Order Info: 0786-1 - CMPOrder Info: [id number] - LIPIDOrder Date: 10/11/24Order Info: 3084-1 - URICOrder Info: [id number] - CRPOrder Info: [id number] - TSHOrder Info: [id number] - RA Performed By: #### L 503.7505 #### [facility] [address] [place], [address] CA,Total 9.6 mg/dL Normal 8.5-10.1 [facility] Comment on above: Order Comment: Order Date: 05/24/24Order Info: 0786-1 - CMPOrder Info: [id number] - LIPIDOrder Date: 10/11/24Order Info: 3084-1 - URICOrder Info: [id number] - CRPOrder Info: [id number] - TSHOrder Info: [id number] - RA Performed By: #### L 503.7505 #### [facility] [address] [place], [address] Chloride [Moles/Vol] 104 mmol/L Normal 98-107 [facility] Comment on above: Order Comment: Order Date: 05/24/24Order Info: 0786-1 - CMPOrder Info: [id number] - LIPIDOrder Date: 10/11/24Order Info: 3084-1 - URICOrder Info: [id number] - CRPOrder Info: [id number] - TSHOrder Info: [id number] - RA Performed By: #### L 503.7505 #### [facility] [address] [place], [address] CO2 [Moles/Vol] 27.0 mmol/L Normal 21.0-32.0 [facility] Comment on above: Order Comment: Order Date: 05/24/24Order Info: 0786-1 - CMPOrder Info: [id number] - LIPIDOrder Date: 10/11/24Order Info: 3084-1 - URICOrder Info: [id number] - CRPOrder Info: [id number] - TSHOrder Info: [id number] - RA Performed By: #### L 503.7505 #### [facility] [address] [place], [place], [address] Creatinine [Mass/Vol] 0.66 mg/dL Normal 0.55-1.02 [facility] Comment on above: Order Comment: Order Date: 05/24/24Order Info: 0786-1 - CMPOrder Info: [id number] - LIPIDOrder Date: 10/11/24Order Info: 3084-1 - URICOrder Info: [id number] - CRPOrder Info: [id number] - TSHOrder Info: [id number] - RA Result Comment: The validity of the calculated GFR GFRAA in patients over 70 years has not been determined. Clinical correlation is essential. Performed By: #### L 503.7505 #### [facility] [address] [place], [place], [address] EST GFR - AA 115 mL/min Normal >60 [facility] Comment on above: Order Comment: Order Date: 05/24/24Order Info: 0786-1 - CMPOrder Info: [id number] - LIPIDOrder Date: 10/11/24Order Info: 3084-1 - URICOrder Info: [id number] - CRPOrder Info: [id number] - TSHOrder Info: [id number] - RA Result Comment: Afri can [place] GFR Calc Performed By: #### L 503.7505 #### [facility] [address] [place], [place], [address] GAP 8 Normal 5-15 [facility] Comment on above: Order Comment: Order Date: 05/24/24Order Info: 0786-1 - CMPOrder Info: [id number] - LIPIDOrder Date: 10/11/24Order Info: 3084-1 - URICOrder Info: [id number] - CRPOrder Info: [id number] - TSHOrder Info: [id number] - RA Performed By: #### L 503.7505 #### [facility] [address] [place], [place], [address] GFR/1.73 sq M.predicted among non-blacks MDRD (S/P/Bld) [Vol rate/Area] 95 mL/min/{1.73_m2} Normal >60 [facility] Comment on above: Order Comment: Order Date: 05/24/24Order Info: 0786-1 - CMPOrder Info: [id number] - LIPIDOrder Date: 10/11/24Order Info: 3084-1 - URICOrder Info: [id number] - CRPOrder Info: [id number] - TSHOrder Info: [id number] - RA Result Comment: Non- GFR Calc Performed By: #### L 503.7505 #### [facility] [address] [place], [address] Globulin (S) [Mass/Vol] 4.9 g/dL High 2.2-4.2 [facility] Comment on above: Order Comment: Order Date: 05/24/24Order Info: 0786-1 - CMPOrder Info: [id number] - LIPIDOrder Date: 10/11/24Order Info: 3084-1 - URICOrder Info: [id number] - CRPOrder Info: [id number] - TSHOrder Info: [id number] - RA Performed By: #### L 503.7505 #### [facility] [address] [place], [address] Glucose [Mass/Vol] 105 mg/dL Normal 74-106 [facility] Comment on above: Order Comment: Order Date: 05/24/24Order Info: 0786-1 - CMPOrder Info: [id number] - LIPIDOrder Date: 10/11/24Order Info: 3084-1 - URICOrder Info: [id number] - CRPOrder Info: [id number] - TSHOrder Info: [id number] - RA Result Comment: Fast ing Glucose result from 100 to 125 mg/dL suggests IMPAIRED HOMEOSTASIS per A.D.A. criteria. Performed By: #### L 503.7505 #### [facility] [address] [place], [address] Potassium [Moles/Vol] 3.8 mmol/L Normal 3.5-5.1 [facility] Comment on above: Order Comment: Order Date: 05/24/24Order Info: 0786-1 - CMPOrder Info: [id number] - LIPIDOrder Date: 10/11/24Order Info: 3084-1 - URICOrder Info: [id number] - CRPOrder Info: [id number] - TSHOrder Info: [id number] - RA Performed By: #### L 503.7505 #### [facility] [address] [place], [address] Sodium [Moles/Vol] 138 mmol/L Normal 136-145 [facility] Comment on above: Order Comment: Order Date: 05/24/24Order Info: 0786-1 - CMPOrder Info: [id number] - LIPIDOrder Date: 10/11/24Order Info: 3084-1 - URICOrder Info: [id number] - CRPOrder Info: [id number] - TSHOrder Info: [id number] - RA Performed By: #### L 503.7505 #### [facility] [address] [place], [address] T PROT 7.9 g/dL Normal 6.4-8.2 [facility] Comment on above: Order Comment: Order Date: 05/24/24Order Info: 0786-1 - CMPOrder Info: [id number] - LIPIDOrder Date: 10/11/24Order Info: 3084-1 - URICOrder Info: [id number] - CRPOrder Info: [id number] - TSHOrder Info: [id number] - RA Performed By: #### L 503.7505 #### [facility] [address] [place], [address] Urea nitrogen [Mass/Vol] 13 mg/dL Normal 7-18 [facility] Comment on above: Order Comment: Order Date: 05/24/24Order Info: 0786-1 - CMPOrder Info: [id number] - LIPIDOrder Date: 10/11/24Order Info: 3084-1 - URICOrder Info: [id number] - CRPOrder Info: [id number] - TSHOrder Info: [id number] - RA Performed By: #### L 503.7505 #### [facility] [address] [place], [place], [address] Eosinophil percentageOrdered By: Henrry Odom on 10-11-2024 Eosinophils/100 WBC (Bld) 3.3 % 0-5 [facility] Erythrocyte Sed Rateon 10-11 SED RATE 63 mm/hr High 0-30 [facility] Comment on above: Order Comment: Order Date: 05/24/24 Order Info: [id number] - CBCD Order Info: [id number] - SED Performed By: #### L 501.9520, L100.0100, L101.9900, L506.1000, L500.4050, L503.0105, L500.4100 #### [facility] [address] [place], [place], [address] Erythrocyte distribution wid th ratioOrdered By: Henrry Odom on 10-11-2024 Erythrocyte distribution width (RBC) [Ratio] 13.8 % 11.6-14.6 [facility] Erythrocyte distribution wid th standard deviationOrdered By: Henrry Odom on 10-11-2024 Erythrocyte distribution width (RBC) [Ratio] 43.8 fl 35.1-43.9 [facility] Erythrocyte sedimentation ra teOrdered By: Henrry Odom on 10-11-2024 ESR (Bld) [Velocity] 63 mm/h High 0-30 [facility] Glomerular filtration rate ( GFR) estimationOrdered By: Henrry Odom on 10-11-2024 GFR/1.73 sq M.predicted among non-blacks MDRD (S/P/Bld) [Vol rate/Area] 95 mL/min/{1.73_m2} >60 [facility] Comment on above: Non- GFR Calc Glucose measurementOrdered B y: Henrry Odom on 10-11-2024 Glucose [Mass/Vol] 105 mg/dL 74-106 [facility] Comment on above: Fasting Glucose resu lt from 100 to 125 mg/dL suggests IMPAIRED HOMEOSTASIS per A.D.A. criteria. Hematocrit Auto (Bld) [Volum e fraction]Ordered By: Henrry Odom on 10-11-2024 Hematocrit (Bld) [Volume fraction] 35.8 % Low 37-47 [facility] Hemoglobin measurementOrdere d By: Henrry Odom on 10-11-2024 Hemoglobin (Bld) [Mass/Vol] 11.2 g/dL Low 12.0-15.0 [facility] High density lipoprotein (HD L) measurementOrdered By: Henrry Odom on 10-11-2024 Cholesterol in HDL [Mass/Vol] 47 mg/dL >40 [facility] Comment on above: The drugs N-Acetylcy steine and Metamizole may falsely depress this assay. Reference Range HDL <40 mg/dL Low HDL Cholesterol HDL >or= 60 mg/dL High HDL Cholesterol Immature granulocytes/100 WB C Auto (Bld)Ordered By: Henrry Odom on 10-11-2024 Immature granulocytes/100 WBC (Bld) 1.200 % High 0.0-0.9 [facility] Comment on above: IG% - Immature Granu locytes (promyelocytes, myelocytes and metamyelocytes) > 1% indicates that a LEFT SHIFT is Present. L501.2276on 10-11-2024 Ionized Calcium 1.28 mmol/L Normal 1.09-1.30 [facility] Comment on above: Performed By: #### L 503.7508 #### [facility] [address] [place], [place] [address], [place], [id number] Laboratory - Chemistry and C hemistry - challengeOrdered By: Henrry Odom on 10-11-2024 AST [Catalytic activity/Vol] 7 U/L Low 15-37 [facility] Lipid Profileon 10-11-2024 Cholesterol [Mass/Vol] 226 mg/dL High 200 [facility] Comment on above: Order Comment: Order Date: 05/24/24Order Info: [id number] - CMPOrder Info: [id number] - LIPIDOrder Date: 10/11/24Order Info: 3084-1 - URICOrder Info: [id number] - CRPOrder Info: [id number] - TSHOrder Info: [id number] - RA Result Comment: <200 mg/dL Desirable 200-240 mg/dL Borderline >240 mg/dL High Risk Performed By: #### L 503.7505 #### [facility] [address] [place], [address] Cholesterol in HDL [Mass/Vol] 47 mg/dL Normal [facility] Comment on above: Order Comment: Order Date: 05/24/24Order Info: [id number] - CMPOrder Info: [id number] - LIPIDOrder Date: 10/11/24Order Info: [id number] - URICOrder Info: [id number] - CRPOrder Info: [id number] - TSHOrder Info: [id number] - RA Result Comment: The drugs N-Acetylcysteine and Metamizole may falsely depress this assay. Reference Range HDL <40 mg/dL Low HDL Cholesterol HDL >or= 60 mg/dL High HDL Cholesterol Performed By: #### L 503.7505 #### [facility] [address] [place], [address] Cholesterol in LDL [Mass/Vol] 143 mg/dL High 0-130 [facility] Comment on above: Order Comment: Order Date: 05/24/24Order Info: 0786-1 - CMPOrder Info: [id number] - LIPIDOrder Date: 10/11/24Order Info: [id number] - URICOrder Info: [id number] - CRPOrder Info: [id number] - TSHOrder Info: [id number] - RA Performed By: #### L 503.7505 #### [facility] [address] [place], [address] Cholesterol in VLDL [Mass/Vol] 36 mg/dL Normal 5-40 [facility] Comment on above: Order Comment: Order Date: 05/24/24Order Info: [id number] - CMPOrder Info: [id number] - LIPIDOrder Date: 10/11/24Order Info: 3084-1 - URICOrder Info: [id number] - CRPOrder Info: [id number] - TSHOrder Info: [id number] - RA Performed By: #### L 503.7505 #### [facility] [address] [place], [address] Triglyceride [Mass/Vol] 180 mg/dL Normal [facility] Comment on above: Order Comment: Order Date: 05/24/24Order Info: [id number] - CMPOrder Info: [id number] - LIPIDOrder Date: 10/11/24Order Info: 3084-1 - URICOrder Info: [id number] - CRPOrder Info: [id number] - TSHOrder Info: [id number] - RA Result Comment: The drugs N-Acetylcysteine and Metamizole may falsely depress this assay. Serum Triglycerides Reference Interval Normal <150 mg/dL Borderline high 150 - 199 mg/dL High 200 - 499 mg/dL Very High > or = 500 mg/dL Performed By: #### L 503.7505 #### [facility] [address] [place], [address] Low density lipoprotein (LDL ) cholesterol measurementOrdered By: Henrry Odom on 10-11-2024 Cholesterol in LDL [Mass/Vol] 143 mg/dL High 0-130 [facility] MCV (mean corpuscular volume ) determinationOrdered By: Henrry Odom on 10-11-2024 MCV (RBC) [Entitic vol] 86.9 fL 81-99 [facility] Mean corpuscular hemoglobin (MCH) determinationOrdered By: Henrry Odom on 10-11-2024 MCH (RBC) [Entitic mass] 27.2 pg 27.0-32.0 [facility] Mean corpuscular hemoglobin concentration (MCHC) determinationOrdered By: Henrry Odom on 10-11-2024 MCHC (RBC) [Mass/Vol] 31.3 g/dL Low 32-36 [facility] Mean platelet volume determi nationOrdered By: Henrry Odom on 10-11-2024 Platelet mean volume (Bld) [Entitic vol] 9.5 fL 6.2-12.0 [facility] Monocyte percentageOrdered B y: Henrry Odom on 10-11-2024 Monocytes/100 WBC (Bld) 6.6 % 0-10 [facility] Neutrophil percentageOrdered By: Henrry Odom on 10-11-2024 Neutrophils/100 WBC (Bld) 66.7 % 47-70 [facility] No Panel InformationOrdered By: Henrry Odom on 10-11-2024 Addendum Document Comment . [facility] Comment on above: Faint band in gamma region suspicious for monoclonalimmunoglobulin. This band may represent a benign spike asseen in older people or could be a paraprotein as seen inMultiple Myeloma, Waldenstrom's Macroglobulinemia orLymphoma. Depending on clinical circumstances, furtherdiagnostic studies may include serum immunofixation orserum free light chain quantitation.Performed at: [facility] [id number] Director: Bart Goff PhD, Phone: [phone] Nucleated red blood cell per centageOrdered By: Henrry Odom on 10-11-2024 Nucleated RBC/100 WBC (Bld) [Ratio] 0 % 0-5 [facility] PTHINon 10-11-2024 PTH 46.3 pg/mL Normal 18.4-80.1 [facility] Comment on above: Order Comment: Order Date: 05/24/24Order Info: [id number] - PTHIN Performed By: #### L 503.7505 #### [facility] [address] [place] [address], [address] Platelet countOrdered By: Pritesh Odom on 10-11-2024 Platelets (Bld) [#/Vol] 657 10*3/uL High 150-450 [facility] Potassium measurementOrdered By: Henrry Odom on 10-11-2024 Potassium [Moles/Vol] 3.8 mmol/L 3.5-5.1 [facility] Protein Fractions Elph [Inte rp]Ordered By: Henrry Odom on 10-11-2024 Protein Fractions [Interp] Comment . [facility] Comment on above: Protein electrophore sis scan will follow via computer,mail, or waterproofer delivery. RBC Auto (Bld) [#/Vol]Ordere d By: Henrry Odom on 10-11-2024 RBC (Bld) [#/Vol] 4.12 10*6/uL Low 4.2-5.4 [facility] Rheumatoid Factoron 10-11-19 25 RHEUMATOID FAC 53.0 IU/mL High <15 [facility] Comment on above: Order Comment: Order Date: 05/24/24Order Info: [id number] - CMPOrder Info: [id number] - LIPIDOrder Date: 10/11/24Order Info: [id number] - URICOrder Info: [id number] - CRPOrder Info: [id number] - TSHOrder Info: [id number] - RA Performed By: #### L [id number] #### [facility] [address] [place], [address] Serum albumin to globulin ra nisha by protein electrophoresisOrdered By: Henrry Odom on 10-11-2024 Albumin/Globulin Elph [Mass ratio] 0.8 0.7-1.7 [facility] Serum anion gap measurementO rdered By: Henrry Odom on 10-11-2024 Anion gap [Moles/Vol] 8 mmol/L 5-15 [facility] Serum globulin measurementOr dered By: Henrry Odom on 10-11-2024 Globulin (S) [Mass/Vol] 4.9 g/dL High 2.2-4.2 [facility] Serum globulin measurement ( mass/volume)Ordered By: Henrry Odom on 10-11-2024 Globulin (S) [Mass/Vol] 4.0 g/dL High 2.2-3.9 [facility] Serum or plasma alanine haywood otransferase (ALT) measurementOrdered By: Henrry Odom on 10-11-2024 ALT [Catalytic activity/Vol] 9 U/L Low 13-56 [facility] Serum or plasma albumin ling urement (mass/volume)Ordered By: Henrry Odom on 10-11-2024 Albumin [Mass/Vol] 3.0 g/dL 2.9-4.4 [facility] Serum or plasma alkaline shira sphatase measurementOrdered By: Henrry Odom on 10-11-2024 ALP [Catalytic activity/Vol] 82 U/L 45-117 [facility] Serum or plasma beta globuli n measurement by electrophoresis (mass/volume)Ordered By: Henrry Odom on 10-11-2024 Beta globulin Elph [Mass/Vol] 1.4 g/dL High 0.7-1.3 [facility] Serum or plasma calcium ling urement (mass/volume)Ordered By: Henrry Odom on 10-11-2024 Calcium [Mass/Vol] 9.6 mg/dL 8.5-10.1 [facility] Serum or plasma cholesterol measurement (mass/volume)Ordered By: Henrry Odom on 10-11-2024 Cholesterol [Mass/Vol] 226 mg/dL High <200 [facility] Comment on above: <200 mg/dL Desirable 200-240 mg/dL Borderline >240 mg/dL High Risk Serum or plasma creatinine m easurement (mass/volume)Ordered By: Henrry Odom on 10-11-2024 Creatinine [Mass/Vol] 0.66 mg/dL 0.55-1.02 [facility] Comment on above: The validity of the calculated GFR & GFRAA in patients over 70 years has not been determined. Clinical correlation is essential. Serum or plasma protein ling urement (mass/volume)Ordered By: Henrry Odom on 10-11-2024 Protein [Mass/Vol] 7.0 g/dL 6.0-8.5 [facility] Serum or plasma protein mono clonal measurement by electrophoresis (mass/volume)Ordered By: Henrry Odom on 10-11-2024 Protein.monoclonal Elph [Mass/Vol] Comment: g/dL Not Observed [facility] Comment on above: SPE shows an asymmet rical gamma. Serum or plasma thyroid stim ulating hormone (TSH) measurement (units/volume)Ordered By: Henrry Odom on 10-11-2024 TSH Qn 1.700 uIU/mL 0.358-3.740 [facility] Serum or plasma urea nitroge n measurement (mass/volume)Ordered By: Henrry Odom on 10-11-2024 Urea nitrogen [Mass/Vol] 13 mg/dL 7-18 [facility] Serum or plasma uric acid me asurement (mass/volume)Ordered By: Henrry Odom on 10-11-2024 Urate [Mass/Vol] 4.9 mg/dL 2.6-6.0 [facility] Comment on above: The drugs N-Acetylcy steine and Metamizole may falsely depress this assay. Sodium levelOrdered By: Deonnaart elizalde Ilene on 10-11-2024 Sodium [Moles/Vol] 138 mmol/L 136-145 [facility] Thyroid Stim Hormone (TSH)on 10-11-2024 TSH 1.700 uIU/mL Normal 0.358-3.740 [facility] Comment on above: Order Comment: Order Date: 05/24/24Order Info: [id number] - CMPOrder Info: [id number] - LIPIDOrder Date: 10/11/24Order Info: [id number] - URICOrder Info: [id number] - CRPOrder Info: [id number] - TSHOrder Info: [id number] - RA Performed By: #### L [id number] #### [facility] [address] [place] [address]. [place], [address] Total proteinOrdered By: Deonna Odom on 10-11-2024 Protein [Mass/Vol] 7.9 g/dL 6.4-8.2 [facility] Triglycerides measurementOrd ered By: Henrry Odom on 10-11-2024 Triglyceride [Mass/Vol] 180 mg/dL <199 [facility] Comment on above: The drugs N-Acetylcy steine and Metamizole may falsely depress this assay.Serum Triglycerides Reference Interval Normal <150 mg/dL Borderline high 150 - 199 mg/dL High 200 - 499 mg/dL Very High > or = 500 mg/dL Uric Acidon 10-11-2024 URIC 4.9 mg/dL Normal 2.6-6.0 [facility] Comment on above: Order Comment: Order Date: 05/24/24Order Info: [id number] - CMPOrder Info: [id number] - LIPIDOrder Date: 10/11/24Order Info: [id number] - URICOrder Info: [id number] - CRPOrder Info: [id number] - TSHOrder Info: [id number] - RA Result Comment: The drugs N-Acetylcysteine and Metamizole may falsely depress this assay. Performed By: #### L [id number] #### [facility] [address] [place], [place], [address] Very low density lipoprotein (VLDL) cholesterol measurementOrdered By: Henrry Odom on 10-11-2024 Very low density lipoprotein (VLDL) cholesterol measurement 36 mg/dL 5-40 [facility] Vitamin B12on 10-11-2024 Cobalamin (Vitamin B12) [Mass/Vol] pg/mL High 211-911 [facility] Comment on above: Order Comment: Order Date: 05/24/24Order Info: [id number] - [id number] Info: [id number] - [id number] Performed By: #### L [id number] #### [facility] [address] [place], [place], [id number] Vitamin D,25 Hydroxyon 10-11 Vitamin D 25-OH 74.5 ng/mL Normal [facility] Comment on above: Order Comment: Order Date: 05/24/24Order Info: [id number] - [id number] Info: [id number] - [id number] Result Comment: Shruthi min D 25(OH) Status Range Deficiency <20 ng/mL (50nmol/L) Insufficiency 20 - 30 ng/mL (50 - 75 nmol/L) Sufficiency 30 - 100 ng/mL (75 - 250 nmol/L) Toxicity >100 ng/mL (>250 nmol/L) Performed By: #### L [id number] #### [facility] [address] [place], [place], [id number] White blood cell (WBC) count Ordered By: Henrry Odom on 10-11-2024 WBC (Bld) [#/Vol] 10.4 10*3/uL 4.4-11.0 [facility] Basophil percentageOrdered B y: Duane Odom on 07-21-2023 Basophil percentage 2.4 mg/dL 2.5-4.9 [facility] Chloride [Moles/Vol] 103 mmol/L 98-107 [facility] Glucose [Mass/Vol] 83 mg/dL 74-106 [facility] Potassium [Moles/Vol] 3.5 mmol/L 3.5-5.1 [facility] Sodium [Moles/Vol] 138 mmol/L 136-145 [facility] - Chemistry and C hemistry - challengeOrdered By: Duane Odom on 07-21-2023 CO2 [Moles/Vol] 27.0 mmol/L 21.0-32.0 [facility] Urea nitrogen/Creatinine [Mass ratio] 24.6 mg/mg 10-20 [facility] No Panel InformationOrdered By: Duane Odom on 07-21-2023 Ionized Calcium 5.08 mg/dL 4.36-5.20 [facility] Estimated GFR (MDRD) Amer 97 mL/min >60 [facility] Comment on above: GFR Calc Estimated GFR (MDRD) Non-Af Amer 80 mL/min >60 [facility] Comment on above: Non- GFR Calc Parathyroid Hormone (Intact) 58.2 pg/mL 18.4-80.1 [facility] Thyroid Stimulating Hormone (TSH) 1.29 uIU/mL 0.358-3.74 [facility] Vitamin D 25-Hydroxy 103.0 ng/mL [facility] Comment on above: Vitamin D 25(OH) Sta tus Range Deficiency <20 ng/mL (50nmol/L) Insufficiency 20 - 30 ng/mL (50 - 75 nmol/L) Sufficiency 30 - 100 ng/mL (75 - 250 nmol/L) Toxicity >100 ng/mL (>250 nmol/L)Evidence suggests that patients undergoing fluorescein dye angiography can retain small amounts of fluorescein in the body for up to 48 to 72 hours post-treatment. In the cases of patients with renal insufficiency, retention could be much longer. Samples containing fluorescein can produce falsely elevated values when tested with the [employer] Centaur Vitamin D assay. With fluorescein interference, observed Vitamin D values can be as high as >150 ng/mL (>375 nmol/L). Samples should be resubmitted post fluorescein clearance to ensure there is no interference with Vitamin D test results. Serum or plasma calcium ling urement (mass/volume)Ordered By: Duane Odom on 07-21-2023 Calcium [Mass/Vol] 9.0 mg/dL 8.5-10.1 [facility] Serum or plasma creatinine m easurement (mass/volume)Ordered By: Duane Odom on 07-21-2023 Creatinine [Mass/Vol] 0.77 mg/dL 0.55-1.02 [facility] Comment on above: The validity of the calculated GFR & GFRAA in patients over 70 years has not been determined. Clinical correlation is essential. Serum or plasma urea nitroge n measurement (mass/volume)Ordered By: Duane Odom on 07-21-2023 Urea nitrogen [Mass/Vol] 19 mg/dL 7-18 [facility] Thin prep Papanicolaou smear with manual screeningOrdered By: Duane Odom on 07-21-2023 Thin prep Papanicolaou smear with manual screening 8 5-15 [facility] Absolute lymphocyte countOrd ered By: Duane Odmo on 05-19-2023 Lymphocytes Auto (Unsp spec) [#/Vol] 1.66 10*3/uL 0.83-4.51 [facility] Basophil percentageOrdered B y: Duane Odom on 05-19-2023 Basophils/100 WBC (Bld) 0.9 % 0-1 [facility] Bilirubin [Mass/Vol] 0.20 mg/dL 0.20-1.00 [facility] Comment on above: For patients on eltr ombopag therapy, use of Dimension [place] TBIL is not recommended. Chloride [Moles/Vol] 109 mmol/L 98-107 [facility] Eosinophils/100 WBC (Bld) 3.0 % 0-5 [facility] Glucose [Mass/Vol] 87 mg/dL 74-106 [facility] Neutrophils (Bld) [#/Vol] 6.1 10*3/uL 2.0-7.7 [facility] Neutrophils/100 WBC (Bld) 70.5 % 47-70 [facility] Potassium [Moles/Vol] 3.6 mmol/L 3.5-5.1 [facility] Protein [Mass/Vol] 7.4 g/dL 6.4-8.2 [facility] Sodium [Moles/Vol] 142 mmol/L 136-145 [facility] WBC (Bld) [#/Vol] 8.6 10*3/uL 4.4-11.0 [facility] Blood erythrocytes count (nu mber/volume)Ordered By: Duane Odom on 05-19-2023 RBC (Bld) [#/Vol] 4.25 10*6/uL 4.2-5.4 [facility] Blood hemoglobin measurement (mass/volume)Ordered By: Duane Odom on 05-19-2023 Hemoglobin (Bld) [Mass/Vol] 12.5 g/dL 12.0-15.0 [facility] Blood lymphocytes/100 leukoc ytesOrdered By: Duane Odom on 05-19-2023 Lymphocytes/100 WBC (Bld) 19.3 % 19-41 [facility] Blood monocytes/100 leukocyt esOrdered By: Duane Odom on 05-19-2023 Monocytes/100 WBC (Bld) 6.0 % 0-10 [facility] Blood platelet mean volumeOr dered By: Duane Odom on 05-19-2023 Platelet mean volume (Bld) [Entitic vol] 10.1 fL 6.2-12.0 [facility] Culture, urineOrdered By: Pritesh Odom on 05-19-2023 Bacteria identified Cx Nom (U) Mixed Gram Pos & Gram Neg Org [facility] Bacteria identified Cx Nom (U) Mixed Gram Pos & Gram Neg Org [facility] Determination of erythrocyte mean corpuscular volume (MCV)Ordered By: Duane Odom on 05-19-2023 MCV (RBC) [Entitic vol] 92.2 fL 81-99 [facility] Erythrocyte sedimentation ra teOrdered By: Duane Odom on 05-19-2023 ESR (Bld) [Velocity] 31 mm/h 0-30 [facility] Hematocrit Auto (Bld) [Volum e fraction]Ordered By: Duane Odom on 05-19-2023 Hematocrit (Bld) [Volume fraction] 39.2 % 37-47 [facility] Hemoglobin in reticulocytes (mass per reticulocyte)Ordered By: Duane Odom on 05-19-2023 Hemoglobin (Reticulocytes) [Entitic mass] 32.9 pg 30-35 [facility] Iron measurement (mass/mass) Ordered By: Duane Odom on 05-19-2023 Iron (Unsp spec) [Mass/Mass] 82 ug/dL 50-170 [facility] - Chemistry and C hemistry - challengeOrdered By: Duane Odom on 05-19-2023 ALP [Catalytic activity/Vol] 88 U/L 45-117 [facility] ALT [Catalytic activity/Vol] 20 U/L 13-56 [facility] CO2 [Moles/Vol] 27.0 mmol/L 21.0-32.0 [facility] Cobalamin (Vitamin B12) [Mass/Vol] 286 pg/mL 211-911 [facility] Globulin (S) [Mass/Vol] 3.8 g/dL 2.2-4.2 [facility] Urea nitrogen/Creatinine [Mass ratio] 18.5 mg/mg 10-20 [facility] - Hematology and Cell countsOrdered By: Duane Odom on 05-19-2023 Erythrocyte distribution width (RBC) [Entitic vol] 46.3 fL 35.1-43.9 [facility] Erythrocyte distribution width (RBC) [Ratio] 13.7 % 11.6-14.6 [facility] Immature granulocytes/100 WBC (Bld) 0.300 % 0.0-0.9 [facility] Comment on above: IG% - Immature Granu locytes (promyelocytes, myelocytes and metamyelocytes) > 1% indicates that a LEFT SHIFT is Present. MCH (RBC) [Entitic mass] 29.4 pg 27.0-32.0 [facility] Nucleated RBC/100 WBC (Bld) [Ratio] 0 % 0-5 [facility] MCHC Auto (RBC) [Mass/Vol]Or dered By: Duane Odom on 05-19-2023 MCHC (RBC) [Mass/Vol] 31.9 g/dL 32-36 [facility] No Panel InformationOrdered By: Duane Odom on 05-19-2023 Estimated GFR (MDRD) Amer 99 mL/min >60 [facility] Comment on above: GFR Calc Estimated GFR (MDRD) Non-Af Amer 82 mL/min >60 [facility] Comment on above: Non- GFR Calc Immature Reticulocyte Fraction 16.30 % 3.00-15.90 [facility] Reticulocyte Count 1.80 % 0.5-1.5 [facility] Thyroid Stimulating Hormone (TSH) 0.61 uIU/mL 0.358-3.74 [facility] Total Iron Binding Capacity 401 ug/dL 250-450 [facility] Vitamin D 25-Hydroxy 78.4 ng/mL [facility] Comment on above: Vitamin D 25(OH) Sta tus Range Deficiency <20 ng/mL (50nmol/L) Insufficiency 20 - 30 ng/mL (50 - 75 nmol/L) Sufficiency 30 - 100 ng/mL (75 - 250 nmol/L) Toxicity >100 ng/mL (>250 nmol/L) Platelets bldOrdered By: Deonna Odom on 05-19-2023 Platelets (Bld) [#/Vol] 412 10*3/uL 150-450 [facility] Serum or plasma C reactive p rotein measurement (mass/volume)Ordered By: Duane Odom on 05-19-2023 CRP [Mass/Vol] 8.41 mg/L 0.0-3.0 [facility] Comment on above: C-Reactive Protein ( CRP) provides useful information for thediagnosis, therapy and monitoring of inflammatory processesand associated diseases. For the evaluation of Relative Riskfor Cardiovascular Disease, a High Sensitivity CRP (HSCRP)should be ordered. Serum or plasma albumin ling urement (mass/volume)Ordered By: Duane Odom on 05-19-2023 Albumin [Mass/Vol] 3.6 g/dL 3.2-5.0 [facility] Serum or plasma albumin/glob ulin mass ratioOrdered By: Duane Odom on 05-19-2023 Albumin/Globulin [Mass ratio] 0.9 {ratio} 0.9-2.4 [facility] Serum or plasma calcium ling urement (mass/volume)Ordered By: Duane Odom on 05-19-2023 Calcium [Mass/Vol] 9.4 mg/dL 8.5-10.1 [facility] Serum or plasma creatinine m easurement (mass/volume)Ordered By: Duane Odom on 05-19-2023 Creatinine [Mass/Vol] 0.76 mg/dL 0.55-1.02 [facility] Comment on above: The validity of the calculated GFR & GFRAA in patients over 70 years has not been determined. Clinical correlation is essential. Serum or plasma ferritin brionna surement (mass/volume)Ordered By: Duane Odom on 05-19-2023 Ferritin [Mass/Vol] 28 ng/mL 8-252 [facility] Serum or plasma urea nitroge n measurement (mass/volume)Ordered By: Duane Odom on 05-19-2023 Urea nitrogen [Mass/Vol] 14 mg/dL 7-18 [facility] Thin prep Papanicolaou smear with manual screeningOrdered By: Duane Odom on 05-19-2023 Thin prep Papanicolaou smear with manual screening 46 U/L 15-37 [facility] Thin prep Papanicolaou smear with manual screening 6 5-15 [facility] Absolute lymphocyte countOrd ered By: Otf Richard on 04-11-2023 Lymphocytes Auto (Unsp spec) [#/Vol] 1.50 10*3/uL 0.83-4.51 [facility] Basophil percentageOrdered B y: Otf Richard on 04-11-2023 Basophils/100 WBC (Bld) 0.9 % 0-1 [facility] Chloride [Moles/Vol] 105 mmol/L 98-107 [facility] Eosinophils/100 WBC (Bld) 5.7 % 0-5 [facility] Glucose [Mass/Vol] 96 mg/dL 74-106 [facility] Neutrophils (Bld) [#/Vol] 3.3 10*3/uL 2.0-7.7 [facility] Neutrophils/100 WBC (Bld) 58.6 % 47-70 [facility] Potassium [Moles/Vol] 3.8 mmol/L 3.5-5.1 [facility] Sodium [Moles/Vol] 140 mmol/L 136-145 [facility] WBC (Bld) [#/Vol] 5.6 10*3/uL 4.4-11.0 [facility] Blood erythrocytes count (nu mber/volume)Ordered By: Otf Richard on 04-11-2023 RBC (Bld) [#/Vol] 3.32 10*6/uL 4.2-5.4 [facility] Blood hemoglobin measurement (mass/volume)Ordered By: Otf Richard on 04-11-2023 Hemoglobin (Bld) [Mass/Vol] 9.8 g/dL 12.0-15.0 [facility] Blood lymphocytes/100 leukoc ytesOrdered By: Otf Richard on 04-11-2023 Lymphocytes/100 WBC (Bld) 26.6 % 19-41 [facility] Blood monocytes/100 leukocyt esOrdered By: Otf Richard on 04-11-2023 Monocytes/100 WBC (Bld) 7.1 % 0-10 [facility] Blood platelet mean volumeOr dered By: Otf Richard on 04-11-2023 Platelet mean volume (Bld) [Entitic vol] 9.1 fL 6.2-12.0 [facility] Determination of erythrocyte mean corpuscular volume (MCV)Ordered By: Otf Richard on 04-11-2023 MCV (RBC) [Entitic vol] 90.4 fL 81-99 [facility] Hematocrit Auto (Bld) [Volum e fraction]Ordered By: Otf Richard on 04-11-2023 Hematocrit (Bld) [Volume fraction] 30.0 % 37-47 [facility] - Chemistry and C hemistry - challengeOrdered By: Otf Richard on 04-11-2023 CO2 [Moles/Vol] 32.0 mmol/L 21.0-32.0 [facility] Urea nitrogen/Creatinine [Mass ratio] 19.4 mg/mg 10-20 [facility] - Hematology and Cell countsOrdered By: Otf Richard on 04-11-2023 Erythrocyte distribution width (RBC) [Entitic vol] 44.1 fL 35.1-43.9 [facility] Erythrocyte distribution width (RBC) [Ratio] 13.6 % 11.6-14.6 [facility] Immature granulocytes/100 WBC (Bld) 1.100 % 0.0-0.9 [facility] Comment on above: IG% - Immature Granu locytes (promyelocytes, myelocytes and metamyelocytes) > 1% indicates that a LEFT SHIFT is Present. MCH (RBC) [Entitic mass] 29.5 pg 27.0-32.0 [facility] Nucleated RBC/100 WBC (Bld) [Ratio] 0 % 0-5 [facility] MCHC Auto (RBC) [Mass/Vol]Or dered By: Otf Richard on 04-11-2023 MCHC (RBC) [Mass/Vol] 32.7 g/dL 32-36 [facility] No Panel InformationOrdered By: Otf Richard on 04-11-2023 Estimated Creatinine Clearance Calc 62.43 ml/min [facility] Estimated GFR (MDRD) Amer 105 mL/min >60 [facility] Comment on above: GFR Calc Estimated GFR (MDRD) Non-Af Amer 87 mL/min >60 [facility] Comment on above: Non- GFR Calc Platelets bldOrdered By: Jona Richard on 04-11-2023 Platelets (Bld) [#/Vol] 308 10*3/uL 150-450 [facility] Serum or plasma calcium ling urement (mass/volume)Ordered By: Otf Richard on 04-11-2023 Calcium [Mass/Vol] 8.7 mg/dL 8.5-10.1 [facility] Serum or plasma creatinine m easurement (mass/volume)Ordered By: Otf Richard on 04-11-2023 Creatinine [Mass/Vol] 0.72 mg/dL 0.55-1.02 [facility] Comment on above: The validity of the calculated GFR & GFRAA in patients over 70 years has not been determined. Clinical correlation is essential. Serum or plasma urea nitroge n measurement (mass/volume)Ordered By: Otf Richard on 04-11-2023 Urea nitrogen [Mass/Vol] 14 mg/dL 7-18 [facility] Thin prep Papanicolaou smear with manual screeningOrdered By: Otf Richard on 04-11-2023 Thin prep Papanicolaou smear with manual screening 3 5-15 [facility] Acid fast bacilli (AFB) cult ureOrdered By: Otf Richard on 04-06-2023 Mycobacterium sp identified Org specific cx Nom (Unsp spec) [facility] Mycobacterium sp identified Org specific cx Nom (Unsp spec) [facility] Anaerobic cultureOrdered By: Otf Richard on 04-06-2023 Bacteria identified Anaer cx Nom (Unsp spec) No growth in [address] [facility] Fungus cultureOrdered By: St dmitri Richard on 04-06-2023 Fungus identified Cx Nom (Unsp spec) [facility] Fungus identified Cx Nom (Unsp spec) [facility] Fungus stainOrdered By: Jelani Richard on 04-06-2023 Fungus identified Fungus stain Nom (Unsp spec) [facility] Fungus identified Fungus stain Nom (Unsp spec) [facility] Glucose Glucometer (BldC) [M ass/Vol]Ordered By: Otf Richard on 04-06-2023 Glucose [Mass/Vol] 99 mg/dL 74-106 [facility] Comment on above: MANAGEMENT OF PATIEN T CARE PER NURSING PROTOCOL Gram stain for investigation of transfusion reactionOrdered By: Otf Richard on 04-06-2023 Microscopic observation Gram stain Nom (Unsp spec) [facility] Routine wound cultureOrdered By: Otf Richard on 04-06-2023 Bacteria identified Cx Nom (Wound) No growth aerobically. [facility] Thin prep Papanicolaou smear with manual screeningOrdered By: Otf Richard on 04-06-2023 Thin prep Papanicolaou smear with manual screening [facility] Thin prep Papanicolaou smear with manual screening [facility] Absolute lymphocyte countOrd ered By: Duane Odom on 03-24-2023 Lymphocytes Auto (Unsp spec) [#/Vol] 2.22 10*3/uL 0.83-4.51 [facility] Basophil percentageOrdered B y: Duane Odom on 03-24-2023 Basophils/100 WBC (Bld) 0.9 % 0-1 [facility] Bilirubin [Mass/Vol] 0.20 mg/dL 0.20-1.00 [facility] Comment on above: For patients on eltr ombopag therapy, use of Dimension [place] TBIL is not recommended. Chloride [Moles/Vol] 103 mmol/L 98-107 [facility] Eosinophils/100 WBC (Bld) 4.0 % 0-5 [facility] Glucose [Mass/Vol] 90 mg/dL 74-106 [facility] Neutrophils (Bld) [#/Vol] 5.9 10*3/uL 2.0-7.7 [facility] Neutrophils/100 WBC (Bld) 63.7 % 47-70 [facility] Potassium [Moles/Vol] 4.5 mmol/L 3.5-5.1 [facility] Protein [Mass/Vol] 8.1 g/dL 6.4-8.2 [facility] Sodium [Moles/Vol] 136 mmol/L 136-145 [facility] WBC (Bld) [#/Vol] 9.2 10*3/uL 4.4-11.0 [facility] Blood erythrocytes count (nu mber/volume)Ordered By: Duane Odom on 03-24-2023 RBC (Bld) [#/Vol] 4.66 10*6/uL 4.2-5.4 [facility] Blood hemoglobin measurement (mass/volume)Ordered By: Duane Odom on 03-24-2023 Hemoglobin (Bld) [Mass/Vol] 13.6 g/dL 12.0-15.0 [facility] Blood lymphocytes/100 leukoc ytesOrdered By: Duane Odom on 03-24-2023 Lymphocytes/100 WBC (Bld) 24.1 % 19-41 [facility] Blood monocytes/100 leukocyt esOrdered By: Duane Odom on 03-24-2023 Monocytes/100 WBC (Bld) 6.6 % 0-10 [facility] Blood platelet mean volumeOr dered By: Duane Odom on 03-24-2023 Platelet mean volume (Bld) [Entitic vol] 10.8 fL 6.2-12.0 [facility] Culture, urineOrdered By: Pritesh Odom on 03-24-2023 Bacteria identified Cx Nom (U) Klebsiella pneumoniae sp pneum [facility] Bacteria identified Cx Nom (U) Klebsiella pneumoniae sp pneum [facility] Determination of erythrocyte mean corpuscular volume (MCV)Ordered By: Duane Odom on 03-24-2023 MCV (RBC) [Entitic vol] 91.6 fL 81-99 [facility] Erythrocyte sedimentation ra teOrdered By: Duane Odom on 03-24-2023 ESR (Bld) [Velocity] 39 mm/h 0-30 [facility] Hematocrit Auto (Bld) [Volum e fraction]Ordered By: Duane Odom on 03-24-2023 Hematocrit (Bld) [Volume fraction] 42.7 % 37-47 [facility] Laboratory - Chemistry and C hemistry - challengeOrdered By: Duane Odom on 03-24-2023 ALP [Catalytic activity/Vol] 107 U/L 45-117 [facility] ALT [Catalytic activity/Vol] 31 U/L 13-56 [facility] CO2 [Moles/Vol] 27.0 mmol/L 21.0-32.0 [facility] Globulin (S) [Mass/Vol] 4.4 g/dL 2.2-4.2 [facility] Urea nitrogen/Creatinine [Mass ratio] 17.0 mg/mg 10-20 [facility] Laboratory - Hematology and Cell countsOrdered By: Duane Odom on 03-24-2023 Erythrocyte distribution width (RBC) [Entitic vol] 45.9 fL 35.1-43.9 [facility] Erythrocyte distribution width (RBC) [Ratio] 13.6 % 11.6-14.6 [facility] Immature granulocytes/100 WBC (Bld) 0.700 % 0.0-0.9 [facility] Comment on above: IG% - Immature Granu locytes (promyelocytes, myelocytes and metamyelocytes) > 1% indicates that a LEFT SHIFT is Present. MCH (RBC) [Entitic mass] 29.2 pg 27.0-32.0 [facility] Nucleated RBC/100 WBC (Bld) [Ratio] 0 % 0-5 [facility] MCHC Auto (RBC) [Mass/Vol]Or dered By: Duane Odom on 03-24-2023 MCHC (RBC) [Mass/Vol] 31.9 g/dL 32-36 [facility] No Panel InformationOrdered By: Duane Odom on 03-24-2023 Estimated GFR (MDRD) Amer 98 mL/min >60 [facility] Comment on above: GFR Calc Estimated GFR (MDRD) Non-Af Amer 81 mL/min >60 [facility] Comment on above: Non- GFR Calc Thyroid Stimulating Hormone (TSH) 1.42 uIU/mL 0.358-3.74 [facility] Platelets bldOrdered By: Deonna julius Ilene on 03-24-2023 Platelets (Bld) [#/Vol] 390 10*3/uL 150-450 [facility] Serum or plasma albumin ling urement (mass/volume)Ordered By: Duane Odom on 03-24-2023 Albumin [Mass/Vol] 3.7 g/dL 3.2-5.0 [facility] Serum or plasma albumin/glob ulin mass ratioOrdered By: Duane Odom on 03-24-2023 Albumin/Globulin [Mass ratio] 0.8 {ratio} 0.9-2.4 [facility] Serum or plasma calcium ling urement (mass/volume)Ordered By: Duane Odom on 03-24-2023 Calcium [Mass/Vol] 9.6 mg/dL 8.5-10.1 [facility] Serum or plasma creatinine m easurement (mass/volume)Ordered By: Duane Odom on 03-24-2023 Creatinine [Mass/Vol] 0.77 mg/dL 0.55-1.02 [facility] Comment on above: The validity of the calculated GFR & GFRAA in patients over 70 years has not been determined. Clinical correlation is essential. Serum or plasma urea nitroge n measurement (mass/volume)Ordered By: Duane Odom on 03-24-2023 Urea nitrogen [Mass/Vol] 13 mg/dL 7-18 [facility] Thin prep Papanicolaou smear with manual screeningOrdered By: Duane Odom on 03-24-2023 Thin prep Papanicolaou smear with manual screening 46 U/L 15-37 [facility] Thin prep Papanicolaou smear with manual screening 6 5-15 [facility] Acid fast bacilli (AFB) cult ureOrdered By: Otf Richard on 03-04-2023 Mycobacterium sp identified Org specific cx Nom (Unsp spec) [facility] Anaerobic cultureOrdered By: Otf Richard on 03-04-2023 Bacteria identified Anaer cx Nom (Unsp spec) No growth in [address] [facility] Blood lymphocytes/100 leukoc ytesOrdered By: Otf Richard on 03-04-2023 Lymphocytes/100 WBC (Bld) 10 % [facility] Color of Synovial fluidOrder ed By: Otf Richard on 03-04-2023 Color (Syn fld) Red Pale Yellow [facility] Determination of appearance of synovial fluidOrdered By: Otf Richard on 03-04-2023 Appearance (Syn fld) Cloudy CLEAR [facility] Fungus cultureOrdered By: St dmitri Richard on 03-04-2023 Fungus identified Cx Nom (Unsp spec) [facility] Gram stain for investigation of transfusion reactionOrdered By: Otf Richard on 03-04-2023 Microscopic observation Gram stain Nom (Unsp spec) [facility] Laboratory - Chemistry and C hemistry - challengeOrdered By: Paul Marcelo on 03-04-2023 Magnesium [Mass/Vol] 2.1 mg/dL 1.6-2.6 [facility] No Panel InformationOrdered By: Otf Richard on 03-04-2023 Synovial Fluid Mononuclear WBCs 0.913 10^3/ul [facility] Synovial Fluid Mononuclear WBCs % 61.7 % [facility] Synovial Fluid Polynuclear WBCs 0.566 10^3/uL [facility] Synovial Fluid Polynuclear WBCs % 38.3 % [facility] Synovial Fluid Total Cells Counted 1.5060 10^3/uL 0.000-0.000 [facility] Comment on above: This is the Total Nu mber of Nucleated Cell Types in the Body Fluid. Nasal Screen MRSA/MSSA [facility] Review by pathologistOrdered By: Otf Richard on 03-04-2023 Pathologist review Tushar (Unsp spec) [Interp] Reviewed [facility] Comment on above: Previous reported re sult: May follow Edited by: RGONELA on 03/07/23:1000Negative for malignant cells.Colton Phoenix M.D. 03/07/23 AMENDED REPORT 03/07/23 1000 PATH COM/SYFL previously reported as: May follow Routine wound cultureOrdered By: Otf Richard on 03-04-2023 Bacteria identified Cx Nom (Wound) No growth aerobically. [facility] Serum or plasma albumin ling urement (mass/volume)Ordered By: Otf Richard on 03-04-2023 Albumin [Mass/Vol] 3.5 g/dL 3.2-5.0 [facility] Specimen source identificati on of body fluidOrdered By: Otf Richard on 03-04-2023 Specimen source Nom (Body fld) LFT KNEE [facility] Synovial fluid erythrocytes count (number/volume)Ordered By: Otf Richard on 03-04-2023 RBC (Syn fld) [#/Vol] 0.109 10^6/uL 0-0 [facility] Synovial fluid leukocytes co unt (number/volume)Ordered By: Otf Richard on 03-04-2023 WBC (Syn fld) [#/Vol] 1.4790 10^3/uL 0.000-0.00 2 [facility] Synovial fluid monocyte perc entageOrdered By: Otf Richard on 03-04-2023 Monocytes/100 WBC (Syn fld) 55 % [facility] Synovial fluid neutrophil pe rcentageOrdered By: Otf Richard on 03-04-2023 Neutrophils/100 WBC (Syn fld) 35 % 0-25 [facility] Thin prep Papanicolaou smear with manual screeningOrdered By: Otf Richard on 03-04-2023 Thin prep Papanicolaou smear with manual screening [facility] Absolute lymphocyte countOrd ered By: Otf Richard on 02-25-2023 Lymphocytes Auto (Unsp spec) [#/Vol] 2.69 10*3/uL 0.83-4.51 [facility] Basophil percentageOrdered B y: Otf Richard on 02-25-2023 Basophils/100 WBC (Bld) 0.8 % 0-1 [facility] Eosinophils/100 WBC (Bld) 2.9 % 0-5 [facility] Neutrophils (Bld) [#/Vol] 8.3 10*3/uL 2.0-7.7 [facility] Neutrophils/100 WBC (Bld) 66.4 % 47-70 [facility] WBC (Bld) [#/Vol] 12.5 10*3/uL 4.4-11.0 [facility] Blood erythrocytes count (nu mber/volume)Ordered By: Otf Richard on 02-25-2023 RBC (Bld) [#/Vol] 4.42 10*6/uL 4.2-5.4 [facility] Blood hemoglobin measurement (mass/volume)Ordered By: Otf Richard on 02-25-2023 Hemoglobin (Bld) [Mass/Vol] 13.0 g/dL 12.0-15.0 [facility] Blood lymphocytes/100 leukoc ytesOrdered By: Otf Richard on 02-25-2023 Lymphocytes/100 WBC (Bld) 21.6 % 19-41 [facility] Blood monocytes/100 leukocyt esOrdered By: Otf Richard on 02-25-2023 Monocytes/100 WBC (Bld) 6.9 % 0-10 [facility] Blood platelet mean volumeOr dered By: Otf Richard on 02-25-2023 Platelet mean volume (Bld) [Entitic vol] 9.5 fL 6.2-12.0 [facility] Determination of erythrocyte mean corpuscular volume (MCV)Ordered By: Otf Richard on 02-25-2023 MCV (RBC) [Entitic vol] 90.7 fL 81-99 [facility] Erythrocyte sedimentation ra teOrdered By: Otf Richard on 02-25-2023 ESR (Bld) [Velocity] 28 mm/h 0-30 [facility] Hematocrit Auto (Bld) [Volum e fraction]Ordered By: tOf Richard on 02-25-2023 Hematocrit (Bld) [Volume fraction] 40.1 % 37-47 [facility] Laboratory - Hematology and Cell countsOrdered By: Otf Richard on 02-25-2023 Erythrocyte distribution width (RBC) [Entitic vol] 44.1 fL 35.1-43.9 [facility] Erythrocyte distribution width (RBC) [Ratio] 13.2 % 11.6-14.6 [facility] Immature granulocytes/100 WBC (Bld) 1.400 % 0.0-0.9 [facility] Comment on above: IG% - Immature Granu locytes (promyelocytes, myelocytes and metamyelocytes) > 1% indicates that a LEFT SHIFT is Present. MCH (RBC) [Entitic mass] 29.4 pg 27.0-32.0 [facility] Nucleated RBC/100 WBC (Bld) [Ratio] 0 % 0-5 [facility] MCHC Auto (RBC) [Mass/Vol]Or dered By: Otf Richard on 02-25-2023 MCHC (RBC) [Mass/Vol] 32.4 g/dL 32-36 [facility] Platelets bldOrdered By: Jona Richard on 02-25-2023 Platelets (Bld) [#/Vol] 496 10*3/uL 150-450 [facility] Serum or plasma C reactive p rotein measurement (mass/volume)Ordered By: Otf Richard on 02-25-2023 CRP [Mass/Vol] 20.20 mg/L 0.0-3.0 [facility] Comment on above: C-Reactive Protein ( CRP) provides useful information for thediagnosis, therapy and monitoring of inflammatory processesand associated diseases. For the evaluation of Relative Riskfor Cardiovascular Disease, a High Sensitivity CRP (HSCRP)should be ordered. Acid fast bacilli (AFB) cult ureOrdered By: Dr. Richard on 02-12-2023 Mycobacterium sp identified Org specific cx Nom (Unsp spec) [facility] Fungus cultureOrdered By: Dr Jayy Richard on 02-12-2023 Fungus identified Cx Nom (Unsp spec) [facility] Fungus stainOrdered By: Dr. Richard on 02-12-2023 Fungus identified Fungus stain Nom (Unsp spec) [facility] Thin prep Papanicolaou smear with manual screeningOrdered By: Dr. Richard on 02-12-2023 Thin prep Papanicolaou smear with manual screening [facility] Absolute lymphocyte countOrd ered By: Dr. Richard on 02-10-2023 Lymphocytes Auto (Unsp spec) [#/Vol] 1.71 10*3/uL 0.83-4.51 [facility] Basophil percentageOrdered B y: Dr. Richard on 02-10-2023 Basophils/100 WBC (Bld) 0.6 % 0-1 [facility] Eosinophils/100 WBC (Bld) 3.5 % 0-5 [facility] Neutrophils (Bld) [#/Vol] 6.9 10*3/uL 2.0-7.7 [facility] Neutrophils/100 WBC (Bld) 70.7 % 47-70 [facility] WBC (Bld) [#/Vol] 9.7 10*3/uL 4.4-11.0 [facility] Blood erythrocytes count (nu mber/volume)Ordered By: Dr. Richard on 02-10-2023 RBC (Bld) [#/Vol] 4.04 10*6/uL 4.2-5.4 [facility] Blood hemoglobin measurement (mass/volume)Ordered By: Dr. Richard on 02-10-2023 Hemoglobin (Bld) [Mass/Vol] 11.6 g/dL 12.0-15.0 [facility] Blood lymphocytes/100 leukoc ytesOrdered By: Dr. Richard on 02-10-2023 Lymphocytes/100 WBC (Bld) 17.6 % 19-41 [facility] Blood monocytes/100 leukocyt esOrdered By: Dr. Richard on 02-10-2023 Monocytes/100 WBC (Bld) 6.7 % 0-10 [facility] Blood platelet mean volumeOr dered By: Dr. Richard on 02-10-2023 Platelet mean volume (Bld) [Entitic vol] 9.4 fL 6.2-12.0 [facility] Determination of erythrocyte mean corpuscular volume (MCV)Ordered By: Dr. Richard on 02-10-2023 MCV (RBC) [Entitic vol] 91.3 fL 81-99 [facility] Erythrocyte sedimentation ra teOrdered By: Dr. Richard on 02-10-2023 ESR (Bld) [Velocity] 26 mm/h 0-30 [facility] Hematocrit Auto (Bld) [Volum e fraction]Ordered By: Dr. Richard on 02-10-2023 Hematocrit (Bld) [Volume fraction] 36.9 % 37-47 [facility] Laboratory - Hematology and Cell countsOrdered By: Dr. Richard on 02-10-2023 Erythrocyte distribution width (RBC) [Entitic vol] 47.1 fL 35.1-43.9 [facility] Erythrocyte distribution width (RBC) [Ratio] 14.0 % 11.6-14.6 [facility] Immature granulocytes/100 WBC (Bld) 0.900 % 0.0-0.9 [facility] Comment on above: IG% - Immature Granu locytes (promyelocytes, myelocytes and metamyelocytes) > 1% indicates that a LEFT SHIFT is Present. MCH (RBC) [Entitic mass] 28.7 pg 27.0-32.0 [facility] Nucleated RBC/100 WBC (Bld) [Ratio] 0 % 0-5 [facility] MCHC Auto (RBC) [Mass/Vol]Or dered By: Dr. Richard on 02-10-2023 MCHC (RBC) [Mass/Vol] 31.4 g/dL 32-36 [facility] Platelets bldOrdered By: Dr. Richard on 02-10-2023 Platelets (Bld) [#/Vol] 468 10*3/uL 150-450 [facility] Serum or plasma C reactive p rotein measurement (mass/volume)Ordered By: Dr. Richard on 02-10-2023 CRP [Mass/Vol] 29.80 mg/L 0.0-3.0 [facility] Comment on above: C-Reactive Protein ( CRP) provides useful information for thediagnosis, therapy and monitoring of inflammatory processesand associated diseases. For the evaluation of Relative Riskfor Cardiovascular Disease, a High Sensitivity CRP (HSCRP)should be ordered. Absolute lymphocyte countOrd ered By: Dr. Baires on 02-05-2023 Lymphocytes Auto (Unsp spec) [#/Vol] 1.41 10*3/uL 0.83-4.51 [facility] Basophil percentageOrdered B y: Dr. Baires on 02-05-2023 Basophils/100 WBC (Bld) 1.0 % 0-1 [facility] Chloride [Moles/Vol] 106 mmol/L 98-107 [facility] Eosinophils/100 WBC (Bld) 6.8 % 0-5 [facility] Glucose [Mass/Vol] 107 mg/dL 74-106 [facility] Comment on above: Fasting Glucose resu lt from 100 to 125 mg/dL suggests IMPAIRED HOMEOSTASIS per A.D.A. criteria. Neutrophils (Bld) [#/Vol] 4.3 10*3/uL 2.0-7.7 [facility] Neutrophils/100 WBC (Bld) 62.9 % 47-70 [facility] Potassium [Moles/Vol] 4.0 mmol/L 3.5-5.1 [facility] Sodium [Moles/Vol] 141 mmol/L 136-145 [facility] WBC (Bld) [#/Vol] 6.8 10*3/uL 4.4-11.0 [facility] Blood erythrocytes count (nu mber/volume)Ordered By: Dr. Baires on 02-05-2023 RBC (Bld) [#/Vol] 3.93 10*6/uL 4.2-5.4 [facility] Blood hemoglobin measurement (mass/volume)Ordered By: Dr. Baires on 02-05-2023 Hemoglobin (Bld) [Mass/Vol] 11.4 g/dL 12.0-15.0 [facility] Blood lymphocytes/100 leukoc ytesOrdered By: Dr. Baires on 02-05-2023 Lymphocytes/100 WBC (Bld) 20.8 % 19-41 [facility] Blood monocytes/100 leukocyt esOrdered By: Dr. Baires on 02-05-2023 Monocytes/100 WBC (Bld) 7.8 % 0-10 [facility] Blood platelet mean volumeOr dered By: Dr. Baires on 02-05-2023 Platelet mean volume (Bld) [Entitic vol] 9.2 fL 6.2-12.0 [facility] Determination of erythrocyte mean corpuscular volume (MCV)Ordered By: Dr. Baires on 02-05-2023 MCV (RBC) [Entitic vol] 91.9 fL 81-99 [facility] Erythrocyte sedimentation ra teOrdered By: Dr. Baires on 02-05-2023 ESR (Bld) [Velocity] 64 mm/h 0-30 [facility] Hematocrit Auto (Bld) [Volum e fraction]Ordered By: Dr. Baires on 02-05-2023 Hematocrit (Bld) [Volume fraction] 36.1 % 37-47 [facility] Laboratory - Chemistry and C hemistry - challengeOrdered By: Dr. Baires on 02-05-2023 CO2 [Moles/Vol] 31.0 mmol/L 21.0-32.0 [facility] Urea nitrogen/Creatinine [Mass ratio] 22.4 mg/mg 10-20 [facility] Laboratory - Hematology and Cell countsOrdered By: Dr. Baires on 02-05-2023 Erythrocyte distribution width (RBC) [Entitic vol] 48.1 fL 35.1-43.9 [facility] Erythrocyte distribution width (RBC) [Ratio] 14.2 % 11.6-14.6 [facility] Immature granulocytes/100 WBC (Bld) 0.700 % 0.0-0.9 [facility] Comment on above: IG% - Immature Granu locytes (promyelocytes, myelocytes and metamyelocytes) > 1% indicates that a LEFT SHIFT is Present. MCH (RBC) [Entitic mass] 29.0 pg 27.0-32.0 [facility] Nucleated RBC/100 WBC (Bld) [Ratio] 0 % 0-5 [facility] MCHC Auto (RBC) [Mass/Vol]Or dered By: Dr. Baires on 02-05-2023 MCHC (RBC) [Mass/Vol] 31.6 g/dL 32-36 [facility] No Panel InformationOrdered By: Dr. Baires on 02-05-2023 Estimated Creatinine Clearance Calc 67.97 ml/min [facility] Estimated GFR (MDRD) Amer 114 mL/min >60 [facility] Comment on above: GFR Calc Estimated GFR (MDRD) Non-Af Amer 94 mL/min >60 [facility] Comment on above: Non- GFR Calc Platelets bldOrdered By: Dr. Baires on 02-05-2023 Platelets (Bld) [#/Vol] 393 10*3/uL 150-450 [facility] Serum or plasma calcium ling urement (mass/volume)Ordered By: Dr. Baires on 02-05-2023 Calcium [Mass/Vol] 9.6 mg/dL 8.5-10.1 [facility] Serum or plasma creatinine m easurement (mass/volume)Ordered By: Dr. Baires on 02-05-2023 Creatinine [Mass/Vol] 0.67 mg/dL 0.55-1.02 [facility] Comment on above: The validity of the calculated GFR & GFRAA in patients over 70 years has not been determined. Clinical correlation is essential. Serum or plasma urea nitroge n measurement (mass/volume)Ordered By: Dr. Baires on 02-05-2023 Urea nitrogen [Mass/Vol] 15 mg/dL 7-18 [facility] Thin prep Papanicolaou smear with manual screeningOrdered By: Dr. Baires on 02-05-2023 Thin prep Papanicolaou smear with manual screening 4 5-15 [facility] Acid fast bacilli (AFB) cult ureOrdered By: Dr. Richard on 01-22-2023 Mycobacterium sp identified Org specific cx Nom (Unsp spec) [facility] Fungus cultureOrdered By: Dr Jayy Richard on 01-22-2023 Fungus identified Cx Nom (Unsp spec) [facility] Thin prep Papanicolaou smear with manual screeningOrdered By: Dr. Richard on 01-22-2023 Thin prep Papanicolaou smear with manual screening [facility] Anaerobic cultureOrdered By: Dr. Richard on 01-04-2023 Bacteria identified Anaer cx Nom (Unsp spec) No growth in [address] [facility] COVID-19 virus antigen assay Ordered By: Toro Baires on 01-04-2023 SARS-CoV-2 (COVID-19) Ag IA.rapid Ql (Resp) [facility] COVID-19 virus antigen assay Ordered By: Dr. Baires on 01-04-2023 SARS-CoV-2 (COVID-19) Ag IA.rapid Ql (Resp) [facility] Bacteria identified Cx Nom ( Wound)Ordered By: Dr. Richard on 01-01-2023 Wound Culture Pseudomonas aeruginosa [facility] Basophil percentageOrdered B y: Dr. Claire on 12-31-2022 Bilirubin [Mass/Vol] 0.30 mg/dL 0.20-1.00 [facility] Comment on above: For patients on eltr ombopag therapy, use of [employer]ension [place] TBIL is not recommended. Protein [Mass/Vol] 6.2 g/dL 6.4-8.2 [facility] Basophil percentageOrdered B y: Dr. Richard on 12-31-2022 Chloride [Moles/Vol] 107 mmol/L 98-107 [facility] Glucose [Mass/Vol] 113 mg/dL 74-106 [facility] Comment on above: Fasting Glucose resu lt from 100 to 125 mg/dL suggests IMPAIRED HOMEOSTASIS per A.D.A. criteria. Potassium [Moles/Vol] 4.0 mmol/L 3.5-5.1 [facility] Sodium [Moles/Vol] 138 mmol/L 136-145 [facility] WBC (Bld) [#/Vol] 6.1 10*3/uL 4.4-11.0 [facility] Blood erythrocytes count (nu mber/volume)Ordered By: Dr. Richard on 12-31-2022 RBC (Bld) [#/Vol] 3.08 10*6/uL 4.2-5.4 [facility] Blood hemoglobin measurement (mass/volume)Ordered By: Dr. Richard on 12-31-2022 Hemoglobin (Bld) [Mass/Vol] 9.1 g/dL 12.0-15.0 [facility] Blood platelet mean volumeOr dered By: Dr. Richard on 12-31-2022 Platelet mean volume (Bld) [Entitic vol] 9.6 fL 6.2-12.0 [facility] COVID-19 virus antigen assay Ordered By: Ct Claire on 12-31-2022 SARS-CoV-2 (COVID-19) Ag IA.rapid Ql (Resp) [facility] COVID-19 virus antigen assay Ordered By: Dr. Claire on 12-31-2022 SARS-CoV-2 (COVID-19) Ag IA.rapid Ql (Resp) [facility] Determination of erythrocyte mean corpuscular volume (MCV)Ordered By: Dr. Richard on 12-31-2022 MCV (RBC) [Entitic vol] 91.9 fL 81-99 [facility] Direct bilirubinOrdered By: Dr. Claire on 12-31-2022 Bilirubin.direct [Mass/Vol] 0.14 mg/dL 0.00-0.30 [facility] Hematocrit Auto (Bld) [Volum e fraction]Ordered By: Dr. Richard on 12-31-2022 Hematocrit (Bld) [Volume fraction] 28.3 % 37-47 [facility] Laboratory - Chemistry and C hemistry - challengeOrdered By: Dr. Claire on 12-31-2022 ALP [Catalytic activity/Vol] 83 U/L 45-117 [facility] ALT [Catalytic activity/Vol] 15 U/L 13-56 [facility] Globulin (S) [Mass/Vol] 3.4 g/dL 2.2-4.2 [facility] Laboratory - Chemistry and C hemistry - challengeOrdered By: Dr. Richard on 12-31-2022 CO2 [Moles/Vol] 30.0 mmol/L 21.0-32.0 [facility] Urea nitrogen/Creatinine [Mass ratio] 16.0 mg/mg 10-20 [facility] Laboratory - Hematology and Cell countsOrdered By: Dr. Richard on 12-31-2022 Erythrocyte distribution width (RBC) [Entitic vol] 46.5 fL 35.1-43.9 [facility] Erythrocyte distribution width (RBC) [Ratio] 13.9 % 11.6-14.6 [facility] MCH (RBC) [Entitic mass] 29.5 pg 27.0-32.0 [facility] MCHC Auto (RBC) [Mass/Vol]Or dered By: Dr. Richard on 12-31-2022 MCHC (RBC) [Mass/Vol] 32.2 g/dL 32-36 [facility] No Panel InformationOrdered By: Dr. Richard on 12-31-2022 Estimated Creatinine Clearance Calc 73.46 ml/min [facility] Estimated GFR (MDRD) Amer 124 mL/min >60 [facility] Comment on above: GFR Calc Estimated GFR (MDRD) Non-Af Amer 102 mL/min >60 [facility] Comment on above: Non- GFR Calc Platelets bldOrdered By: Dr. Richard on 12-31-2022 Platelets (Bld) [#/Vol] 258 10*3/uL 150-450 [facility] Serum or plasma albumin ling urement (mass/volume)Ordered By: Dr. Claire on 12-31-2022 Albumin [Mass/Vol] 2.8 g/dL 3.2-5.0 [facility] Serum or plasma calcium ling urement (mass/volume)Ordered By: Dr. Richard on 12-31-2022 Calcium [Mass/Vol] 8.4 mg/dL 8.5-10.1 [facility] Serum or plasma creatinine m easurement (mass/volume)Ordered By: Dr. Richard on 12-31-2022 Creatinine [Mass/Vol] 0.62 mg/dL 0.55-1.02 [facility] Comment on above: The validity of the calculated GFR & GFRAA in patients over 70 years has not been determined. Clinical correlation is essential. Serum or plasma urea nitroge n measurement (mass/volume)Ordered By: Dr. Richard on 12-31-2022 Urea nitrogen [Mass/Vol] 10 mg/dL 7-18 [facility] Thin prep Papanicolaou smear with manual screeningOrdered By: Dr. Claire on 12-31-2022 Thin prep Papanicolaou smear with manual screening 11 U/L 15-37 [facility] Thin prep Papanicolaou smear with manual screeningOrdered By: Dr. Richard on 12-31-2022 Thin prep Papanicolaou smear with manual screening 1 5-15 [facility] Gram stain for investigation of transfusion reactionOrdered By: Dr. Richard on 12-30-2022 Microscopic observation Gram stain Nom (Unsp spec) [facility] Acid fast bacilli (AFB) cult ureOrdered By: Otf Richard on 12-29-2022 Mycobacterium sp identified Org specific cx Nom (Unsp spec) [facility] Fungus cultureOrdered By: St dmitri Richard on 12-29-2022 Fungus identified Cx Nom (Unsp spec) [facility] Fungus stainOrdered By: Jelani Richard on 12-29-2022 Fungus identified Fungus stain Nom (Unsp spec) [facility] Glucose Glucometer (BldC) [M ass/Vol]Ordered By: Dr. Richard on 12-29-2022 Glucose [Mass/Vol] 100 mg/dL 74-106 [facility] Comment on above: MANAGEMENT OF PATIEN T CARE PER NURSING PROTOCOL Thin prep Papanicolaou smear with manual screeningOrdered By: Otf Richard on 12-29-2022 Thin prep Papanicolaou smear with manual screening [facility] Basophil percentageOrdered B y: Umm Cintron on 12-27-2022 WBC (Bld) [#/Vol] 9.0 10*3/uL 4.4-11.0 [facility] Blood erythrocytes count (nu mber/volume)Ordered By: Umm Cintron on 12-27-2022 RBC (Bld) [#/Vol] 4.48 10*6/uL 4.2-5.4 [facility] Blood hemoglobin measurement (mass/volume)Ordered By: Umm Cintron on 12-27-2022 Hemoglobin (Bld) [Mass/Vol] 12.8 g/dL 12.0-15.0 [facility] Blood platelet mean volumeOr dered By: Umm Cintron on 12-27-2022 Platelet mean volume (Bld) [Entitic vol] 10.2 fL 6.2-12.0 [facility] Determination of erythrocyte mean corpuscular volume (MCV)Ordered By: Umm Cintron on 12-27-2022 MCV (RBC) [Entitic vol] 91.7 fL 81-99 [facility] Hematocrit Auto (Bld) [Volum e fraction]Ordered By: Umm Cintron on 12-27-2022 Hematocrit (Bld) [Volume fraction] 41.1 % 37-47 [facility] Laboratory - Hematology and Cell countsOrdered By: Umm Cintron on 12-27-2022 Erythrocyte distribution width (RBC) [Entitic vol] 46.1 fL 35.1-43.9 [facility] Erythrocyte distribution width (RBC) [Ratio] 13.8 % 11.6-14.6 [facility] MCH (RBC) [Entitic mass] 28.6 pg 27.0-32.0 [facility] MCHC Auto (RBC) [Mass/Vol]Or dered By: Umm Cintron on 12-27-2022 MCHC (RBC) [Mass/Vol] 31.1 g/dL 32-36 [facility] Platelets bldOrdered By: Grant Cintron on 12-27-2022 Platelets (Bld) [#/Vol] 489 10*3/uL 150-450 [facility] INR in Blood by Coagulation assayOrdered By: Dr. Martinez on 12-24-2022 INR Coag (Bld) [Relative time] 1.1 {INR} [facility] Laboratory - Chemistry and C hemistry - challengeOrdered By: Dr. Martinez on 12-24-2022 Magnesium [Mass/Vol] 1.9 mg/dL 1.6-2.6 [facility] Laboratory - CoagulationOrde red By: Dr. Martinez on 12-24-2022 aPTT Coag (Bld) [Time] 28.8 s 24.1-36.2 [facility] PT Coag (PPP) [Time] 13.7 s 11.7-14.9 [facility] Anaerobic cultureOrdered By: Dr. Richard on 12-12-2022 Bacteria identified Anaer cx Nom (Unsp spec) No anaerobic bacteria isolated. [facility] Bacteria identified Cx Nom ( Body fld)Ordered By: Dr. Richard on 12-10-2022 Body Fluid Culture Enterococcus faecalis [facility] Gram stain for investigation of transfusion reactionOrdered By: Dr. Richard on 12-09-2022 Microscopic observation Gram stain Nom (Unsp spec) [facility] Acid fast bacilli (AFB) cult ureOrdered By: Otf Richard on 12-08-2022 Mycobacterium sp identified Org specific cx Nom (Unsp spec) [facility] Blood lymphocytes/100 leukoc ytesOrdered By: Dr. Richard on 12-08-2022 Lymphocytes/100 WBC (Bld) 2 % [facility] Color of Synovial fluidOrder ed By: Dr. Richard on 12-08-2022 Color (Syn fld) White Pale Yellow [facility] Determination of appearance of synovial fluidOrdered By: Dr. Richard on 12-08-2022 Appearance (Syn fld) Turbid CLEAR [facility] Fungus cultureOrdered By: St dmitri Richard on 12-08-2022 Fungus identified Cx Nom (Unsp spec) [facility] No Panel InformationOrdered By: Dr. Richard on 12-08-2022 Synovial Fluid Mononuclear WBCs 1.500 10^3/ul [facility] Synovial Fluid Mononuclear WBCs % 3.0 % [facility] Synovial Fluid Polynuclear WBCs 47.710 10^3/uL [facility] Synovial Fluid Polynuclear WBCs % 97.0 % [facility] Synovial Fluid Total Cells Counted 49.3500 10^3/uL 0.000-0.000 [facility] Comment on above: This is the Total Nu mber of Nucleated Cell Types in the Body Fluid. Review by pathologistOrdered By: Dr. Richard on 12-08-2022 Pathologist review Tushar (Unsp spec) [Interp] Reviewed [facility] Comment on above: Previous reported re sult: May follow Edited by: ROSANGELA on 12/09/22:1307Negative for malignant cells.Marked acute inflammation.Clinical correlation necessary.Colton Phoenix M.D. 12/09/22 AMENDED REPORT 12/09/22 1307 PATH COM/SYFL previously reported as: May follow Specimen source identificati on of body fluidOrdered By: Dr. Richard on 12-08-2022 Specimen source Nom (Body fld) LEFT KNEE [facility] Synovial fluid erythrocytes count (number/volume)Ordered By: Dr. Richard on 12-08-2022 RBC (Syn fld) [#/Vol] 0.012 10^6/uL 0-0 [facility] Synovial fluid leukocytes co unt (number/volume)Ordered By: Dr. Richard on 12-08-2022 WBC (Syn fld) [#/Vol] 49.2100 10^3/uL 0.000-0.0 02 [facility] Synovial fluid monocyte perc entageOrdered By: Dr. 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 Richard on 12-08-2022 Neutrophils/100 WBC (Syn fld) 98 % 0-25 [facility] Thin prep Papanicolaou smear with manual screeningOrdered By: Otf Richard on 12-08-2022 Thin prep Papanicolaou smear with manual screening [facility] Absolute lymphocyte countOrd ered By: Oleg Mendez on 11-29-2022 Lymphocytes Auto (Unsp spec) [#/Vol] 2.07 10*3/uL 0.83-4.51 [facility] Basophil percentageOrdered B y: Oleg Mendez on 11-29-2022 Basophils/100 WBC (Bld) 0.6 % 0-1 [facility] Eosinophils/100 WBC (Bld) 2.1 % 0-5 [facility] Neutrophils (Bld) [#/Vol] 7.1 10*3/uL 2.0-7.7 [facility] Neutrophils/100 WBC (Bld) 71.0 % 47-70 [facility] WBC (Bld) [#/Vol] 10.0 10*3/uL 4.4-11.0 [facility] Blood erythrocytes count (nu mber/volume)Ordered By: Oleg Mendez on 11-29-2022 RBC (Bld) [#/Vol] 4.46 10*6/uL 4.2-5.4 [facility] Blood hemoglobin measurement (mass/volume)Ordered By: Oleg Mendez on 11-29-2022 Hemoglobin (Bld) [Mass/Vol] 12.7 g/dL 12.0-15.0 [facility] Blood lymphocytes/100 leukoc ytesOrdered By: Oleg Mendez on 11-29-2022 Lymphocytes/100 WBC (Bld) 20.8 % 19-41 [facility] Blood monocytes/100 leukocyt esOrdered By: Oleg Mendez on 11-29-2022 Monocytes/100 WBC (Bld) 5.1 % 0-10 [facility] Blood platelet mean volumeOr dered By: Oleg Mendez on 11-29-2022 Platelet mean volume (Bld) [Entitic vol] 9.6 fL 6.2-12.0 [facility] Determination of erythrocyte mean corpuscular volume (MCV)Ordered By: Oleg Mendez on 11-29-2022 MCV (RBC) [Entitic vol] 88.1 fL 81-99 [facility] Erythrocyte sedimentation ra teOrdered By: Oleg Mendez on 11-29-2022 ESR (Bld) [Velocity] 23 mm/h 0-30 [facility] Hematocrit Auto (Bld) [Volum e fraction]Ordered By: Oleg Mendez on 11-29-2022 Hematocrit (Bld) [Volume fraction] 39.3 % 37-47 [facility] Laboratory - Hematology and Cell countsOrdered By: Oleg Mendez on 11-29-2022 Erythrocyte distribution width (RBC) [Entitic vol] 41.6 fL 35.1-43.9 [facility] Erythrocyte distribution width (RBC) [Ratio] 12.9 % 11.6-14.6 [facility] Immature granulocytes/100 WBC (Bld) 0.400 % 0.0-0.9 [facility] Comment on above: IG% - Immature Granu locytes (promyelocytes, myelocytes and metamyelocytes) > 1% indicates that a LEFT SHIFT is Present. MCH (RBC) [Entitic mass] 28.5 pg 27.0-32.0 [facility] Nucleated RBC/100 WBC (Bld) [Ratio] 0 % 0-5 [facility] MCHC Auto (RBC) [Mass/Vol]Or dered By: Oleg Mendez on 11-29-2022 MCHC (RBC) [Mass/Vol] 32.3 g/dL 32-36 [facility] Platelets bldOrdered By: Sam Mendez on 11-29-2022 Platelets (Bld) [#/Vol] 454 10*3/uL 150-450 [facility] Serum or plasma C reactive p rotein measurement (mass/volume)Ordered By: Oleg Mendez on 11-29-2022 CRP [Mass/Vol] 20.50 mg/L 0.0-3.0 [facility] Comment on above: C-Reactive Protein ( CRP) provides useful information for thediagnosis, therapy and monitoring of inflammatory processesand associated diseases. For the evaluation of Relative Riskfor Cardiovascular Disease, a High Sensitivity CRP (HSCRP)should be ordered. Absolute lymphocyte counton 01-27-2022 Lymphocytes Auto (Unsp spec) [#/Vol] 1.97 10*3/uL 0.83-4.51 [facility] Work Phone: [phone] Basophil percentageon 2021 Basophils/100 WBC (Bld) 1.0 % 0-1 [facility] Work Phone: Chloride [Moles/Vol] 107 mmol/L 98-107 [facility] Work Phone: Eosinophils/100 WBC (Bld) 2.0 % 0-5 [facility] Work Phone: [phone] Glucose [Mass/Vol] 89 mg/dL 74-106 [facility] Work Phone: Neutrophils (Bld) [#/Vol] 5.3 10*3/uL 2.0-7.7 [facility] Work Phone: Neutrophils/100 WBC (Bld) 66.2 % 47-70 [facility] Work Phone: Potassium [Moles/Vol] 4.1 mmol/L 3.5-5.1 [facility] Work Phone: Sodium [Moles/Vol] 140 mmol/L 136-145 [facility] Work Phone: WBC (Bld) [#/Vol] 8.1 10*3/uL 4.4-11.0 [facility] Work Phone: Blood erythrocytes count (nu mber/volume)on 01-27-2022 RBC (Bld) [#/Vol] 4.26 10*6/uL 4.2-5.4 [facility] Work Phone: Blood hemoglobin measurement (mass/volume)on 01-27-2022 Hemoglobin (Bld) [Mass/Vol] 12.2 g/dL 12.0-15.0 [facility] Work Phone: Blood lymphocytes/100 leukoc yteson 01-27-2022 Lymphocytes/100 WBC (Bld) 24.5 % 19-41 [facility] Work Phone: Blood monocytes/100 leukocyt eson 01-27-2022 Monocytes/100 WBC (Bld) 5.7 % 0-10 [facility] Work Phone: Blood platelet mean volumeon 01-27-2022 Platelet mean volume (Bld) [Entitic vol] 10.1 fL 6.2-12.0 [facility] Work Phone: Determination of erythrocyte mean corpuscular volume (MCV)on 01-27-2022 MCV (RBC) [Entitic vol] 90.6 fL 81-99 [facility] Work Phone: Erythrocyte sedimentation ra gelacio 01-27-2022 ESR (Bld) [Velocity] 43 mm/h 0-30 [facility] Work Phone: [phone] Hematocrit Auto (Bld) [Volum e fraction]on 01-27-2022 Hematocrit (Bld) [Volume fraction] 38.6 % 37-47 [facility] Work Phone: [phone] Hemoglobin in reticulocytes (mass per reticulocyte)on 01-27-2022 Hemoglobin (Reticulocytes) [Entitic mass] 30.5 pg 30-35 [facility] Work Phone: Iron measurement (mass/mass) on 01-27-2022 Iron (Unsp spec) [Mass/Mass] 63 ug/dL 50-170 [facility] Work Phone: Laboratory - Chemistry and C hemistry - challengeon 01-27-2022 CO2 [Moles/Vol] 29.0 mmol/L 21.0-32.0 [facility] Work Phone: Cobalamin (Vitamin B12) [Mass/Vol] 353 pg/mL 211-911 [facility] Work Phone: [phone] Urea nitrogen/Creatinine [Mass ratio] 34.6 mg/mg 10-20 [facility] Work Phone: Laboratory - Hematology and Cell countson 01-27-2022 Erythrocyte distribution width (RBC) [Entitic vol] 46.1 fL 35.1-43.9 [facility] Work Phone: Erythrocyte distribution width (RBC) [Ratio] 13.9 % 11.6-14.6 [facility] Work Phone: [phone] Immature granulocytes/100 WBC (Bld) 0.600 % 0.0-0.9 [facility] Work Phone: [phone] Comment on above: IG% - Immature Granu locytes (promyelocytes, myelocytes and metamyelocytes) > 1% indicates that a LEFT SHIFT is Present. MCH (RBC) [Entitic mass] 28.6 pg 27.0-32.0 [facility] Work Phone: [phone] Nucleated RBC/100 WBC (Bld) [Ratio] 0 % 0-5 [facility] Work Phone: MCHC Auto (RBC) [Mass/Vol]on 01-27-2022 MCHC (RBC) [Mass/Vol] 31.6 g/dL 32-36 [facility] Work Phone: No Panel Informationon 01-27 Estimated GFR (MDRD) Amer 96 mL/min >60 [facility] Work Phone: Comment on above: GFR Calc Estimated GFR (MDRD) Non-Af Amer 79 mL/min >60 [facility] Work Phone: Comment on above: Non- GFR Calc Immature Reticulocyte Fraction 15.20 % 3.00-15.90 [facility] Work Phone: Reticulocyte Count 1.68 % 0.5-1.5 [facility] Work Phone: Thyroid Stimulating Hormone (TSH) 0.89 uIU/mL 0.358-3.74 [facility] Work Phone: Vitamin D 25-Hydroxy 91.9 ng/mL [facility] Work Phone: Comment on above: Vitamin D 25(OH) Sta tus Range Deficiency <20 ng/mL (50nmol/L) Insufficiency 20 - 30 ng/mL (50 - 75 nmol/L) Sufficiency 30 - 100 ng/mL (75 - 250 nmol/L) Toxicity >100 ng/mL (>250 nmol/L) Platelets bldon 01-27-2022 Platelets (Bld) [#/Vol] 486 10*3/uL 150-450 [facility] Work Phone: Serum or plasma calcium ling urement (mass/volume)on 01-27-2022 Calcium [Mass/Vol] 9.6 mg/dL 8.5-10.1 [facility] Work Phone: Serum or plasma creatinine m easurement (mass/volume)on 01-27-2022 Creatinine [Mass/Vol] 0.78 mg/dL 0.55-1.02 [facility] Work Phone: Comment on above: The validity of the calculated GFR & GFRAA in patients over 70 years has not been determined. Clinical correlation is essential. Serum or plasma ferritin brionna surement (mass/volume)on 01-27-2022 Ferritin [Mass/Vol] 28 ng/mL 8-252 [facility] Work Phone: Serum or plasma urea nitroge n measurement (mass/volume)on 01-27-2022 Urea nitrogen [Mass/Vol] 27 mg/dL 7-18 [facility] Work Phone: Thin prep Papanicolaou smear with manual screeningon 01-27-2022 Thin prep Papanicolaou smear with manual screening 4 5-15 [facility] Work Phone: Basophil percentageon 2021 Bilirubin [Mass/Vol] 0.40 mg/dL 0.20-1.00 [facility] Work Phone: Comment on above: For patients on eltr ombopag therapy, use of Dimension [place] TBIL is not recommended. Cholesterol [Mass/Vol] 266 mg/dL <200 [facility] Work Phone: Comment on above: <200 mg/dL Desirable 200-240 mg/dL Borderline >240 mg/dL High Risk Protein [Mass/Vol] 8.0 g/dL 6.4-8.2 [facility] Work Phone: Triglyceride [Mass/Vol] 135 mg/dL <199 [facility] Work Phone: Comment on above: The drugs N-Acetylcy steine and Metamizole may falsely depress this assay.Serum Triglycerides Reference Interval Normal <150 mg/dL Borderline high 150 - 199 mg/dL High 200 - 499 mg/dL Very High > or = 500 mg/dL Direct bilirubinon 2 Bilirubin.direct [Mass/Vol] 0.09 mg/dL 0.00-0.30 [facility] Work Phone: Laboratory - Chemistry and C hemistry - challengeon 11-27-2021 ALP [Catalytic activity/Vol] 109 U/L 45-117 [facility] Work Phone: ALT [Catalytic activity/Vol] 19 U/L 13-56 [facility] Work Phone: Globulin (S) [Mass/Vol] 4.3 g/dL 2.2-4.2 [facility] Work Phone: Serum or plasma albumin ling urement (mass/volume)on 11-27-2021 Albumin [Mass/Vol] 3.7 g/dL 3.2-5.0 [facility] Work Phone: Serum or plasma cholesterol in HDL measurement (mass/volume)on 11-27-2021 Cholesterol in HDL [Mass/Vol] 64 mg/dL >40 [facility] Work Phone: Comment on above: The drugs N-Acetylcy steine and Metamizole may falsely depress this assay. Reference Range HDL <40 mg/dL Low HDL Cholesterol HDL >or= 60 mg/dL High HDL Cholesterol Serum or plasma cholesterol in VLDL measurement (mass/volume)on 11-27-2021 Cholesterol in VLDL [Mass/Vol] 27 mg/dL 5-40 [facility] Work Phone: Serum or plasma low density lipoprotein (LDL) cholesterol measurement (mass/volume)on 11-27-2021 Cholesterol in LDL [Mass/Vol] 175 mg/dL 0-130 [facility] Work Phone: Thin prep Papanicolaou smear with manual screeningon 11-27-2021 Thin prep Papanicolaou smear with manual screening 15 U/L 15-37 [facility] Work Phone: CRPon 09-22-2018 CRP [Mass/Vol] 4.82 mg/dL High 0.00-0.30 [facility] Comment on above: Performed By: #### C RP3 #### [address] [address] Comprehensive Panelon 2018 ALP [Catalytic activity/Vol] 118 U/L High 46-116 [facility] Comment on above: Performed By: #### P 14 #### [address] [address] Bilirubin [Mass/Vol] 0.3 mg/dL Normal 0.2-1.[address] [facility] Comment on above: Performed By: #### P 14 #### [facility] [address], [place] [address] Protein [Mass/Vol] 7.7 g/dL Normal 6.4-8.2 [facility] Comment on above: Performed By: #### P 14 #### [facility] [address] [place], [place] [address] Creatinine [Mass/Vol] 0.62 mg/dL Normal 0.51-0.95 [facility] Comment on above: Performed By: #### P 14 #### [facility] [address] [place], [place] [address] ALT [Catalytic activity/Vol] 22 U/L Normal 12-78 [facility] Comment on above: Performed By: #### P 14 #### [facility] [address] [place] [address] AST [Catalytic activity/Vol] 12 U/L Normal 9-37 [facility] Comment on above: Performed By: #### P 14 #### [facility] [address] [place] [place] [address] Albumin [Mass/Vol] 3.6 g/dL Normal 3.4-5.0 [facility] Comment on above: Performed By: #### P 14 #### [facility] [address] [place], [place] [address] Anion gap [Moles/Vol] 9 mmol/L Normal 8-16 [facility] Comment on above: Performed By: #### P 14 #### [facility] [address] [place] [address] Calcium [Mass/Vol] 9.0 mg/dL Normal 8.5-10.1 [facility] Comment on above: Performed By: #### P 14 #### [facility] [address] [place], [place] [address] CO2 [Moles/Vol] 31 mmol/L Normal 21-32 [facility] Comment on above: Performed By: #### P 14 #### [facility] [address] [place] [address] Glucose [Mass/Vol] 100 mg/dL High 70-99 [facility] Comment on above: Performed By: #### P 14 #### [facility] [address] [place] [address] Urea nitrogen [Mass/Vol] 17 mg/dL Normal 7-18 [facility] Comment on above: Performed By: #### P 14 #### [facility] [address] [place] [address] Chloride [Moles/Vol] 102 mmol/L Normal 98-[address] [facility] Comment on above: Performed By: #### P 14 #### [facility] [address] [place] [address] Potassium [Moles/Vol] 4.5 mmol/L Normal 3.5-5.1 [facility] Comment on above: Performed By: #### P 14 #### [facility] [address] [place] [address] Sodium [Moles/Vol] 137 mmol/L Normal 136-145 [facility] Comment on above: Performed By: #### P 14 #### [facility] [address] [place] [address] Hemogram/Diffon 09-22-2018 Abs Immature Grans 0.12 thou/cmm High 0.00-0.05 [facility] Comment on above: Performed By: #### C BCD1 #### [facility] [address] [place] [address] Abs. Baso 0.10 thou/cmm High 0.01-0.08 [facility] Comment on above: Performed By: #### C BCD1 #### [facility] [address] [place] [address] Abs. Toombs 0.69 thou/cmm Normal 0.27-0.70 [facility] Comment on above: Performed By: #### C BCD1 #### [facility] [address] [place] [address] Abs. Neut (ANC) 8.13 thou/cmm High 1.56-6.13 [facility] Comment on above: Performed By: #### C BCD1 #### [facility] [address] [place], [place] [address] Basophils/100 WBC (Bld) 0.9 % Normal [facility] Comment on above: Performed By: #### C BCD1 #### [facility] [address] [place], [place] [address] Eosinophils (Bld) [#/Vol] 0.20 thou/cmm Normal 0.00-0.31 [facility] Comment on above: Performed By: #### C BCD1 #### [facility] [address] [place] [place] [address] Eosinophils/100 WBC (Bld) 1.7 % Normal [facility] Comment on above: Performed By: #### C BCD1 #### [facility] [address] [place] [address] Erythrocyte distribution width (RBC) [Ratio] 17.2 % High 11.7-14.4 [facility] Comment on above: Performed By: #### C BCD1 #### [facility] [address] [place], [place] [address] Hematocrit (Bld) [Volume fraction] 35.9 % Normal 34.1-44.9 [facility] Comment on above: Performed By: #### C BCD1 #### [facility] [address] [place], [place] [address] Hemoglobin (Bld) [Mass/Vol] 10.8 g/dL Low 11.2-15.7 [facility] Comment on above: Performed By: #### C BCD1 #### [facility] [address] [place], [place] [address] Immature Grans 1.00 % Normal [facility] Comment on above: Performed By: #### C BCD1 #### [facility] [address] [place], [place] [address] Lymphocytes (Bld) [#/Vol] 2.27 thou/cmm Normal 1.18-3.74 [facility] Comment on above: Performed By: #### C BCD1 #### [facility] [address] [place], [place] [address] Lymphocytes/100 WBC (Bld) 19.7 % Normal [facility] Comment on above: Performed By: #### C BCD1 #### [facility] [address] [place] [place] [address] MCH (RBC) [Entitic mass] 24.9 pg Low 25.6-32.2 [facility] Comment on above: Performed By: #### C BCD1 #### [facility] [address] [place], [place] [address] MCHC (RBC) [Mass/Vol] 30.1 % Low 31.6-34.8 [facility] Comment on above: Performed By: #### C BCD1 #### [facility] [address] [place] [address] MCV (RBC) [Entitic vol] 82.9 fL Normal 79.4-94.8 [facility] Comment on above: Performed By: #### C BCD1 #### [facility] [address] [place] [address] Monocytes/100 WBC (Bld) 6.0 % Normal [facility] Comment on above: Performed By: #### C BCD1 #### [facility] [address] [place] [address] Platelet mean volume (Bld) [Entitic vol] 10.1 fL Normal 9.4-12.3 [facility] Comment on above: Performed By: #### C BCD1 #### [facility] [address] [place] [address] Platelets (Bld) [#/Vol] 572 thou/cmm High 182-369 [facility] Comment on above: Performed By: #### C BCD1 #### [facility] [address] [place], [place] [address] RBC (Bld) [#/Vol] 4.33 mil/cmm Normal 3.93-5.22 [facility] Comment on above: Performed By: #### C BCD1 #### [facility] [address] [place] [address] RDW SD 51.8 fl High 36.4-46.3 [facility] Comment on above: Performed By: #### C BCD1 #### [facility] [address] [place] [address] Seg Neutrophil 70.7 % Normal [facility] Comment on above: Performed By: #### C BCD1 #### [facility] [address] [place] [address] WBC (Bld) [#/Vol] 11.50 thou/cmm High 3.98-10.04 [facility] Comment on above: Performed By: #### C BCD1 #### [facility] [address] [place] [address] MDRD GFRon 09-22-2018 GFR/1.73 sq M predicted among non-blacks MDRD (S/P/Bld) [Vol rate/Area] mL/min/{1.73_m2} Normal >60mL/min/1.7 3m2 [facility] Comment on above: Result Comment: If t he patient is , multiply the result by 1.210. Performed By: #### G FR #### [place] [address] Sed Rateon 09-22-2018 Sed Rate 96 mm/hr High 0-20 [facility] Comment on above: Performed By: #### E SR #### [facility] [address] [place] [address] BASIC METABOLIC PANELon 09-06 Anion gap 13 mmol/L Normal 10 - 20 [facility] Comment on above: Performed By: #### H EPFP ####[facility] [place] [address] Bicarbonate (HCO3) 29 mmol/L Normal 21 - 32 [facility] Comment on above: Performed By: #### H EPFP ####[facility] [place] [address] Calcium 10.0 mg/dL Normal 8.6 - 10.6 [facility] Comment on above: Performed By: #### H EPFP ####[facility] [place] [address] Chloride 100 mmol/L Normal 98 - 107 [facility] Comment on above: Performed By: #### H EPFP ####[facility] [place] [address] Creatinine 0.57 mg/dL Normal 0.50 - 1.05 [facility] Comment on above: Performed By: #### H EPFP ####[facility] [place] [address] eGFR (non-black) mL/min/{1.73_m2} Normal >60 [facility] Comment on above: Performed By: #### H EPFP ####[facility] [place] [address] Result Comment: CALC ULATIONS OF ESTIMATED GFR ARE PERFORMED USING THE MDRD STUDY EQUATION FOR THE IDMS-TRACEABLE CREATININE METHODS. CLIN CHEM 2007;53:766-72 Glucose mass conc 99 mg/dL Normal 74 - 99 [facility] Comment on above: Performed By: #### H EPFP ####[facility] [place] [address] Potassium molar conc 4.3 mmol/L Normal 3.5 - 5.3 [facility] Comment on above: Performed By: #### H EPFP ####[facility] [place] [address] Sodium 138 mmol/L Normal 136 - 145 [facility] Comment on above: Performed By: #### H EPFP ####[facility] [place] [address] Urea nitrogen 16 mg/dL Normal 6 - 23 [facility] Comment on above: Performed By: #### H EPFP ####[facility] [place] [address] C-REACTIVE PROTEINon 018 C reactive protein (CRP) 8.51 mg/dL Abnormal [facility] Comment on above: Result Comment: REF VALUE< 1.00 Performed By: #### H EPFP ####[facility] [place] [address] CBC AND DIFFERENTIALon 09-28 % AUTOMATED IMMATURE GRAN 1.2 % High 0.0 - 0.9 [facility] Comment on above: Result Comment: Perc ent differential counts (%) should be interpreted in the context of the absolute cell counts (cells/L). Performed By: #### B MP ####[facility] [place] [address] % NEUTROPHIL 64.8 % Normal 40.0 - 80.0 [facility] Comment on above: Performed By: #### B MP ####[facility] [place] [address] Basophils/100 WBC Auto (Bld) 0.08 x10E9/L Normal 0.00 - 0.10 [facility] Comment on above: Result Comment: Auto mated WBC differential has been confirmed by manual smear. Performed By: #### B MP ####[facility] [place] [address] Basophils/100 WBC Auto (Bld) 0.7 % Normal 0.0 - 2.0 [facility] Comment on above: Performed By: #### B MP ####[facility] [place] [address] Eosinophils 0.18 10*3/uL Normal 0.00 - 0.70 [facility] Comment on above: Performed By: #### B MP ####[facility] [place] [address] Eosinophils/100 leukocytes 1.7 % Normal 0.0 - 6.0 [facility] Comment on above: Performed By: #### B MP ####[facility] [place] [address] Lymphocytes 2.70 10*3/uL Normal 1.20 - 4.80 [facility] Comment on above: Performed By: #### B MP ####[facility] [place] [address] Lymphocytes/100 leukocytes 25.0 % Normal 13.0 - 44.0 [facility] Comment on above: Performed By: #### B MP ####[facility] [place] [address] Monocytes 0.71 10*3/uL Normal 0.10 - 1.00 [facility] Comment on above: Performed By: #### B MP ####[facility] [place] [address] Monocytes/100 leukocytes 6.6 % Normal 2.0 - 10.0 [facility] Comment on above: Performed By: #### B MP ####[facility] [place] [address] Neutrophils 6.99 10*3/uL Normal 1.20 - 7.70 [facility] Comment on above: Performed By: #### B MP ####[facility] [place] [address] Platelets 903 10*3/uL High 150 - 450 [facility] Comment on above: Result Comment: Plat elet count verified by smear review. Performed By: #### B MP ####[facility] [place] [address] Erythrocyte distribution width Auto Ratio (RBC) 15.5 % High 11.5 - 14.5 [facility] Comment on above: Performed By: #### B MP ####[facility] [place] [address] Erythrocytes (RBC) 3.65 x10E12/L Low 4.00 - 5.20 [facility] Comment on above: Performed By: #### B MP ####[facility] [place] [address] Hematocrit (HCT) 29.9 % Low 36.0 - 46.0 [facility] Comment on above: Performed By: #### B MP ####[facility] [place] [address] Hemoglobin mass conc (Bld) 8.8 g/dL Low 12.0 - 16.0 [facility] Comment on above: Performed By: #### B MP ####[facility] [place] [address] MCHC mass conc (RBC) 29.4 g/dL Low 32.0 - 36.0 [facility] Comment on above: Performed By: #### B MP ####[facility] [place] [address] MCV 82 fL Normal 80 - 100 [facility] Comment on above: Performed By: #### B MP ####[facility] [place] [address] Nucleated erythrocytes 0.0 /100 WBC Normal 0.0-0.0 [facility] Comment on above: Performed By: #### B MP ####[facility] [place] [address] WBC (Leukocytes) 10.8 10*3/uL Normal 4.4 - 11.3 [facility] Comment on above: Performed By: #### B MP ####[facility] [place] [address] CBC DIFFERENTIAL PATH REVIEW on 09-28-2017 PATH REV-DIFFERENTIAL E.[place] Normal [facility] Comment on above: Result Comment: By h er/his signature above, the Pathologist listed as making the final interpretation certifies that she/he has personally reviewed this case. MARKED THROMBOCYTOSIS AND NORMOCYTIC ANEMIA. CORRELATION WITH THE CLINICALAND OTHER LABORATORY FINDINGS IS SUGGESTED. Performed By: #### B MP ####[facility] [place] [address] HEPATIC FUNCTION PANELon Alanine aminotransferase (ALT) 9 U/L Normal 7 - 45 [facility] Comment on above: Result Comment: Shanthi ents treated with Sulfasalazine may generate falsely decreased results for ALT. Performed By: #### B MP ####[facility] [place] [address] Albumin 3.6 g/dL Normal 3.4 - 5.0 [facility] Comment on above: Performed By: #### B MP ####[facility] [place] [address] Alkaline phosphatase (ALP) 99 U/L Normal 33 - 110 [facility] Comment on above: Performed By: #### B MP ####[facility] [place] [address] Aspartate aminotransferase (AST) 11 U/L Normal 9 - 39 [facility] Comment on above: Performed By: #### B MP ####[facility] [place] [address] Bilirubin (direct) 0.0 mg/dL Normal 0.0 - 0.3 [facility] Comment on above: Performed By: #### B MP ####[facility] [place] [address] Bilirubin (total) 0.3 mg/dL Normal 0.0 - 1.2 [facility] Comment on above: Performed By: #### B MP ####[facility] [place] [address] Protein 7.2 g/dL Normal 6.4 - 8.2 [facility] Comment on above: Performed By: #### B MP ####[facility] [place] [address] RED CELL MORPHOLOGYon 2017 Erythrocyte morphology See Below Normal [facility] Comment on above: Performed By: #### B MP ####[facility] [place] [address] ROULEAUX Present Normal [facility] Comment on above: Performed By: #### B MP ####[facility] [place] [address] SEDIMENTATION RATE, ERYTHROC YTEon 09-28-2017 SEDIMENTATION RATE, ERYTHROCYTE 106 mm/h High 0 - 30 [facility] Comment on above: Result Comment: Note new reference range (males age 17-50) and new methodology as of 09/15/2017. Performed By: #### H EPFP ####[facility] [place] [address] QUANTIFERON TB GOLDon 2016 MITOGEN NIL 6.84 IU/mL Normal [facility] Comment on above: Performed By: #### H EPFP ####[facility] [place] [address] NIL 0.06 IU/mL Normal [facility] Comment on above: Performed By: #### H EPFP ####[facility] [place] [address] QUANTIFERON TB GOLD Negative Normal Negative [facility] Comment on above: Result Comment: Nega tive test result. M. tuberculosis complexinfection unlikely. Performed By: #### H EPFP ####[facility] [place] [address] TB ANTIGEN NIL <0.00 Normal [facility] Comment on above: Result Comment: The Nil tube value is used to determine if the patienthas a preexisting immune response which could cause afalse-positive reading on the test.In order for a test to be valid, the Nil tube must havea value of <=8.0 IU/mL.The Mitogen control tube is used to assure the patienthas a healthy immune status and also serves as acontrol for correct blood handling and incubation.It is used to detect false-negative readings. Themitogen tube must have a gamma interferon value>= 0.5 IU/mL higher than the value of the Nil tube.The TB Antigen tube is coated with the M tuberculosisspecific antigens. For a test to be considered positivethe TB antigen tube value minus the Nil tube value mustbe >=0.35 IU/mL.Data on the performance of the test in childrenyounger than 5 years of age are limited, and the [facility]ises that caution is warranted when using the assayin children aged <5 years (MMWR 2010; 59 (RR-05):1-25).For additional information, please refer to:http://[email or web address]/faq/QFT(This link is being provided for informational/educational purposes only). Performed By: #### H EPFP ####[facility] [place] [address] QUANTIFERON TB GOLDon 2016 MITOGEN NIL 0.19 IU/mL Normal [facility] Comment on above: Performed By: #### H EPFP ####[facility] [place] [address] NIL 0.04 IU/mL Normal [facility] Comment on above: Performed By: #### H EPFP ####[facility] [place] [address] QUANTIFERON TB GOLD Positive Abnormal Negative [facility] Comment on above: Result Comment: In h ealthy persons who have a low likelihood bothof M. tuberculosis infection and of progression toactive tuberculosis if infected, a single positive QFTresult should not be taken as reliable evidence ofM. tuberculosis infection. Repeat testing, with eitherthe initial test or a different test, may be consideredon a omgr-lh-tjpu basis. Performed By: #### H EPFP ####[facility] [place] [address] TB ANTIGEN NIL 0.75 IU/mL Normal [facility] Comment on above: Result Comment: The Nil tube value is used to determine if the patienthas a preexisting immune response which could cause afalse-positive reading on the test.In order for a test to be valid, the Nil tube must havea value of <=8.0 IU/mL.The Mitogen control tube is used to assure the patienthas a healthy immune status and also serves as acontrol for correct blood handling and incubation.It is used to detect false-negative readings. Themitogen tube must have a gamma interferon value>= 0.5 IU/mL higher than the value of the Nil tube.The TB Antigen tube is coated with the M tuberculosisspecific antigens. For a test to be considered positivethe TB antigen tube value minus the Nil tube value mustbe >=0.35 IU/mL.Data on the performance of the test in childrenyounger than 5 years of age are limited, and the CDCadvises that caution is warranted when using the assayin children aged <5 years (MMWR 2010; 59 (RR-05):1-25).For additional information, please refer to:http://[email or web address]/faq/QFT(This link is being provided for informational/educational purposes only). Performed By: #### H EPFP ####[facility] [place] [address] FLORA TITER/BRET PANELon 2016 ANTI-CENTROMERE <0.2 Normal [facility] Comment on above: Result Comment: REF VALUES< 1.0 = NEGATIVE>=1.0 = POSITIVE Performed By: #### H EPFP ####[facility] [place] [address] ANTI-CHROMATIN 0.2 AI Normal [facility] Comment on above: Result Comment: REF VALUES< 1.0 = NEGATIVE>=1.0 = POSITIVE Performed By: #### H EPFP ####[facility] [place] [address] ANTI-DNA [DS] <1.0 Normal [facility] Comment on above: Result Comment: REF VALUESNEGATIVE: <= 4 IU/MLEQUIVOCAL: 5- 9 IU/MLPOSITIVE: >=10 IU/ML Performed By: #### H EPFP ####[facility] [place] [address] ANTI-MICK-1 <0.2 Normal [facility] Comment on above: Result Comment: REF VALUES< 1.0 = NEGATIVE>=1.0 = POSITIVE Performed By: #### H EPFP ####[facility] [place] [address] ANTI-RIBOSOMAL P <0.2 Normal [facility] Comment on above: Result Comment: REF VALUES< 1.0 = NEGATIVE>=1.0 = POSITIVE Performed By: #### H EPFP ####[facility] [place] [address] ANTI-CHAIRMAN CEO 0.2 AI Normal [facility] Comment on above: Result Comment: REF VALUES< 1.0 = NEGATIVE>=1.0 = POSITIVE Performed By: #### H EPFP ####[facility] [place] [address] ANTI-SCL-70 <0.2 Normal [facility] Comment on above: Result Comment: REF VALUES< 1.0 = NEGATIVE>=1.0 = POSITIVE Performed By: #### H EPFP ####[facility] [place] [address] ANTI-SM <0.2 Normal [facility] Comment on above: Result Comment: REF VALUES< 1.0 = NEGATIVE>=1.0 = POSITIVE Performed By: #### H EPFP ####[facility] [place] [address] ANTI-SM/CHAIRMAN CEO <0.2 Normal [facility] Comment on above: Result Comment: REF VALUES< 1.0 = NEGATIVE>=1.0 = POSITIVE Performed By: #### H EPFP ####[facility] [place] [address] ANTI-SSA <0.2 Normal [facility] Comment on above: Result Comment: REF VALUES< 1.0 = NEGATIVE>=1.0 = POSITIVE Performed By: #### H EPFP ####[facility] [place] [address] ANTI-SSB <0.2 Normal [facility] Comment on above: Result Comment: REF VALUES< 1.0 = NEGATIVE>=1.0 = POSITIVE Performed By: #### H EPFP ####[facility] [place] [address] CITRULLINE ANTIBODYon 2016 CITRULLINE ANTIBODY >300 Abnormal [facility] Comment on above: Result Comment: THE TEST FOR ANTIBODIES SPECIFIC FOR CYCLICCITRULLINATED PEPTIDE (CCP) HAS SHOWN TO BEVALUABLE IN THE DIAGNOSIS OF RHEUMATOIDARTHRITIS. THE DIAGNOSTIC VALUE OFANTIBODIES TO CCP IN JUVENILE RHEUMATOIDARTHRITIS PATIENTS HAS NOT BEEN DETERMINED.ANTIBODIES TO CENTROMERE OR SS-A AND MYELOMAIGG MAY BE REACTIVE IN THIS ASSAY. REF VALUES NEGATIVE < 3 U/ML POSITIVE >=3 U/ML Performed By: #### H EPFP ####[facility] [place] [address] FLORA TITER/BRET PANELon 2016 FLORA PATTERN HOMOGENEOUS Normal [facility] Comment on above: Performed By: #### H EPFP ####[facility] [place] [address] FLORA TITER 1:40 Normal [facility] Comment on above: Performed By: #### H EPFP ####[facility] [place] [address] ANTINUCLEAR ANTIBODYon 06-29 ANTINUCLEAR ANTIBODY Positive Abnormal NEGATIVE [facility] Comment on above: Performed By: #### H EPFP ####[facility] [place] [address] BASIC METABOLIC PANELon 06-06 Anion gap 16 mmol/L Normal 10 - 20 [facility] Comment on above: Performed By: #### B MP ####[facility] [place] [address] Bicarbonate (HCO3) 28 mmol/L Normal 21 - 32 [facility] Comment on above: Performed By: #### B MP ####[facility] [place] [address] Calcium 9.6 mg/dL Normal 8.6 - 10.6 [facility] Comment on above: Performed By: #### B MP ####[facility] [place] [address] Chloride 101 mmol/L Normal 98 - 107 [facility] Comment on above: Performed By: #### B MP ####[facility] [place] [address] Creatinine 0.70 mg/dL Normal 0.50 - 1.05 [facility] Comment on above: Performed By: #### B MP ####[facility] [place] [address] eGFR (non-black) mL/min/{1.73_m2} Normal >60 [facility] Comment on above: Performed By: #### B MP ####[facility] [place] [address] Result Comment: CALC ULATIONS OF ESTIMATED GFR ARE PERFORMED USING THE MDRD STUDY EQUATION FOR THE IDMS-TRACEABLE CREATININE METHODS. CLIN CHEM 2007;53:766-72 Glucose mass conc 80 mg/dL Normal 74 - 99 [facility] Comment on above: Performed By: #### B MP ####[facility] [place] [address] Potassium molar conc 4.1 mmol/L Normal 3.5 - 5.3 [facility] Comment on above: Performed By: #### B MP ####[facility] [place] [address] Sodium 141 mmol/L Normal 136 - 145 [facility] Comment on above: Performed By: #### B MP ####[facility] [place] [address] Urea nitrogen 20 mg/dL Normal 6 - 23 [facility] Comment on above: Performed By: #### B MP ####[facility] [place] [address] C-REACTIVE PROTEINon 017 C reactive protein (CRP) 6.59 mg/dL Abnormal [facility] Comment on above: Result Comment: REF VALUE< 1.00 Performed By: #### C RP ####[facility] [place] [address] CBC AND DIFFERENTIALon 06-29 % AUTOMATED IMMATURE GRAN 2.4 % High 0.0 - 0.9 [facility] Comment on above: Result Comment: Perc ent differential counts (%) should be interpreted in the context of the absolute cell counts (cells/L). Performed By: #### C BCDF ####[facility] [place] [address] % NEUTROPHIL 70.2 % Normal 40.0 - 80.0 [facility] Comment on above: Performed By: #### C BCDF ####[facility] [place] [address] Basophils/100 WBC Auto (Bld) 0.4 % Normal 0.0 - 2.0 [facility] Comment on above: Performed By: #### C BCDF ####[facility] [place] [address] Basophils/100 WBC Auto (Bld) 0.05 x10E9/L Normal 0.00 - 0.10 [facility] Comment on above: Performed By: #### C BCDF ####[facility] [place] [address] Eosinophils 0.13 10*3/uL Normal 0.00 - 0.70 [facility] Comment on above: Performed By: #### C BCDF ####[facility] [place] [address] Eosinophils/100 leukocytes 0.9 % Normal 0.0 - 6.0 [facility] Comment on above: Performed By: #### C BCDF ####[facility] [place] [address] Erythrocyte distribution width Auto Ratio (RBC) 16.9 % High 11.5 - 14.5 [facility] Comment on above: Performed By: #### C BCDF ####[facility] [place] [address] Erythrocytes (RBC) 4.06 x10E12/L Normal 4.00 - 5.20 [facility] Comment on above: Performed By: #### C BCDF ####[facility] [place] [address] Hematocrit (HCT) 34.7 % Low 36.0 - 46.0 [facility] Comment on above: Performed By: #### C BCDF ####[facility] [place] [address] Hemoglobin mass conc (Bld) 10.8 g/dL Low 12.0 - 16.0 [facility] Comment on above: Performed By: #### C BCDF ####[facility] [place] [address] Lymphocytes 2.81 10*3/uL Normal 1.20 - 4.80 [facility] Comment on above: Performed By: #### C BCDF ####[facility] [place] [address] Lymphocytes/100 leukocytes 20.1 % Normal 13.0 - 44.0 [facility] Comment on above: Performed By: #### C BCDF ####[facility] [place] [address] MCHC mass conc (RBC) 31.1 g/dL Low 32.0 - 36.0 [facility] Comment on above: Performed By: #### C BCDF ####[facility] [place] [address] MCV 85 fL Normal 80 - 100 [facility] Comment on above: Performed By: #### C BCDF ####[facility] [place] [address] Monocytes 0.84 10*3/uL Normal 0.10 - 1.00 [facility] Comment on above: Performed By: #### C BCDF ####[facility] [place] [address] Monocytes/100 leukocytes 6.0 % Normal 2.0 - 10.0 [facility] Comment on above: Performed By: #### C BCDF ####[facility] [place] [address] Neutrophils 9.79 10*3/uL High 1.20 - 7.70 [facility] Comment on above: Performed By: #### C BCDF ####[facility] [place] [address] Nucleated erythrocytes 0.0 /100 WBC Normal 0.0-0.0 [facility] Comment on above: Performed By: #### C BCDF ####[facility] [place] [address] Platelets 591 10*3/uL High 150 - 450 [facility] Comment on above: Performed By: #### C BCDF ####[facility] [place] [address] WBC (Leukocytes) 14.0 10*3/uL High 4.4 - 11.3 [facility] Comment on above: Performed By: #### C BCDF ####[facility] [place] [address] ESR-WESTERGRENon 06-29-2017 ESR-WESTERGREN 97 mm/h High 0 - 30 [facility] Comment on above: Performed By: #### E SRWS ####[facility] [place] [address] HEPATIC FUNCTION PANELon Alanine aminotransferase (ALT) 12 U/L Normal 7 - 45 [facility] Comment on above: Result Comment: Shanthi ents treated with Sulfasalazine may generate falsely decreased results for ALT. Performed By: #### H EPFP ####[id number] [place] [address] Albumin 3.6 g/dL Normal 3.4 - 5.0 [facility] Comment on above: Performed By: #### H EPFP ####[facility] [place] [address] Alkaline phosphatase (ALP) 81 U/L Normal 33 - 110 [facility] Comment on above: Performed By: #### H EPFP ####[facility] [place] [address] Aspartate aminotransferase (AST) 12 U/L Normal 9 - 39 [facility] Comment on above: Performed By: #### H EPFP ####[facility] [place] [address] Bilirubin (direct) 0.1 mg/dL Normal 0.0 - 0.3 [facility] Comment on above: Performed By: #### H EPFP ####[facility] [place] [address] Bilirubin (total) 0.3 mg/dL Normal 0.0 - 1.2 [facility] Comment on above: Performed By: #### H EPFP ####[facility] [place] [address] Protein 6.9 g/dL Normal 6.4 - 8.2 [facility] Comment on above: Performed By: #### H EPFP ####[facility] [place] [address] HEPATITIS B CORE AB-TOTALon 06-29-2017 HEP. B CORE AB-TOTAL NONREACTIVE Normal NONREACTIVE [facility] Comment on above: Result Comment: Shanthi ents receiving more than 5 mg/day of biotin may have interference in test results. A sample should be taken no sooner than eight hours after previous dose. Contact [phone] for additional information. Performed By: #### H BCRT ####[facility] [place] [address] HEPATITIS B SURF ABon 2016 HEP B SURF AB < 3.1 Normal <10 [facility] Comment on above: Result Comment: INTE RPRETIVE CRITERIA:<10 mIU/mL....NONREACTIVE>=10 mIU/mL...REACTIVE. Patients receiving more than 5 mg/day of biotin may have interference in test results. A sample should be taken no sooner than eight hours after previous dose. Contact [phone] for additional information. Performed By: #### H BAB3 ####[facility] [place] [address] HEPATITIS B SURFACE AGon HEP.B SURFACE AG NONREACTIVE Normal NONREACTIVE [facility] Comment on above: Result Comment: Shanthi ents receiving more than 5 mg/day of biotin may have interference in test results. A sample should be taken no sooner than eight hours after previous dose. Contact [phone] for additional information. Performed By: #### H BSAG ####[facility] [place] [address] HEPATITIS C ABon 06-29-2017 HEPATITIS C AB NON-REACTIVE Normal NONREACTIVE [facility] Comment on above: Result Comment: Shanthi ents receiving more than 5 mg/day of biotin may have interference in test results. A sample should be taken no sooner than eight hours after previous dose. Contact [phone] for additional information. Performed By: #### H CVAB ####[facility] [place] [address] RHEUMATOID FACTORon 06-29-20 17 RHEUMATOID FACTOR 78 IU/mL High 0 - 15 [facility] Comment on above: Performed By: #### R F ####[facility] [place] [address] HAND, MIN 3 VIEWSon 06-28-20 17 HAND, MIN 3 VIEWS Name: FRANCIE MORENO STUDY:HAND MIN 3 VIEWS; WRIST, COMPLT MIN 3 VIEWS; 06/28/2017 1:47 pm INDICATION:Signs/Sympt oms: Hand and wrist pain bilaterally. Evaluate for erosivedisease. COMPARISON:None. [id number] ORDERING CLINICIAN:JENNIFFER ALEXANDER FINDINGS:6 views bilateral hands, 6 views bilateral wrists. There is no fracture, dislocation or acute bony abnormality. LEFT HAND AND LEFT WRIST: There is mild erosive osteoarthritis of the1st carpometacarpal joint. There is subluxation, mild spurring andsubchondral cyst formation.There is mild spurring of the interphalangeal joint of the 1st digit.There are no bony erosions to suggest gouty arthritis. There is noperiarticular osteopenia. There is no soft tissue swelling. 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 There is an ulnar minus variance, a normal variant. RIGHT HAND AND RIGHT WRIST: There is mild erosive osteoarthritis ofthe 1st carpometacarpal joint. There is subluxation, mild spurringand subchondral cyst formation.There is spurring of the radioulnar joint.There is an ulnar minus variance, a normal variant.There are small erosions along the articulating surface of theproximal pole of the scaphoid and lateral margin of the lunate at thescapholunate joint. This could represent erosive osteoarthritisversus rheumatoid arthritis. IMPRESSION:1. Mild bilateral hand osteoarthritis.2. Erosive osteoarthritis 1st carpometacarpal joint both hands.3. Erosive osteoarthritis versus rheumatoid arthritis proximal carpalrow right wrist. Electronically signed by: MICHAEL RIDDLE MD Normal [facility] HEPATITIS B CORE AB-TOTALon 06-28-2017 Lab Specimen Source Normal [facility] Comment on above: Performed By: #### H BCRT ####[facility] [place] [address] Performed By: #### B MP ####[facility] [place] [address] Performed By: #### C RP ####[facility] [place] [address] Performed By: #### R F ####[facility] [place] [address] Performed By: #### H BSAG ####[facility] [place] [address] Performed By: #### H EPFP ####[facility] [place] [address] Performed By: #### H CVAB ####[facility] [place] [address] Performed By: #### H BAB3 ####[facility] [place] [address] WRIST, COMPLT MIN 3 VIEWSon 06-28-2017 WRIST, COMPLT MIN 3 VIEWS Name: FRANCIE MORENO STUDY:HAND MIN 3 VIEWS; WRIST, COMPLT MIN 3 VIEWS; 06/28/2017 1:47 pm INDICATION:Signs/Sympt oms: Hand and wrist pain bilaterally. Evaluate for erosivedisease. COMPARISON:None. [id number] ORDERING CLINICIAN:JENNIFFER ALEXANDER FINDINGS:6 views bilateral hands, 6 views bilateral wrists. There is no fracture, dislocation or acute bony abnormality. LEFT HAND AND LEFT WRIST: There is mild erosive osteoarthritis of the1st carpometacarpal joint. There is subluxation, mild spurring andsubchondral cyst formation.There is mild spurring of the interphalangeal joint of the 1st digit.There are no bony erosions to suggest gouty arthritis. There is noperiarticular osteopenia. There is no soft tissue swelling. 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 There is an ulnar minus variance, a normal variant. RIGHT HAND AND RIGHT WRIST: There is mild erosive osteoarthritis ofthe 1st carpometacarpal joint. There is subluxation, mild spurringand subchondral cyst formation.There is spurring of the radioulnar joint.There is an ulnar minus variance, a normal variant.There are small erosions along the articulating surface of theproximal pole of the scaphoid and lateral margin of the lunate at thescapholunate joint. This could represent erosive osteoarthritisversus rheumatoid arthritis. IMPRESSION:1. Mild bilateral hand osteoarthritis.2. Erosive osteoarthritis 1st carpometacarpal joint both hands.3. Erosive osteoarthritis versus rheumatoid arthritis proximal carpalrow right wrist. Electronically signed by: MICHAEL RIDDLE MD Normal [facility] Culture, urine Bacteria identified Cx Nom (U) Mixed Gram Pos & Gram Neg Org [facility] Work Phone: Vital Signs Date Time Vital Sign Value Performing Clinician Danial lackey 03-13-2025 10:21-0400 Body mass index (BMI) [Ratio] 32.32 kg/m2 Treatment Wstr Work Phone: [facility] 03-13-2025 10:21-0400 Body weight 80.29 kg Treatment Wstr Work Phone: [facility] 03-13-2025 10:21-0400 Diastolic blood pressure 82 mm[Hg] Treatment Wstr Work Phone: [facility] 03-13-2025 10:21-0400 Heart rate 79 /min Treatment Wstr Work Phone: [facility] 03-13-2025 10:21-0400 SaO2% (BldA) [Mass fraction] 97 % Treatment Wstr Work Phone: [facility] 03-13-2025 10:21-0400 Systolic blood pressure 129 mm[Hg] Treatment Wstr Work Phone: [facility] 02-27-2025 15:24-0400 Diastolic blood pressure 88 mm[Hg] Treatment Wstr Work Phone: [facility] 02-27-2025 15:24-0400 Heart rate 79 /min Treatment Wstr Work Phone: [facility] 02-27-2025 15:24-0400 Systolic blood pressure 142 mm[Hg] Treatment Wstr Work Phone: [facility] 02-27-2025 11:04-0400 Body mass index (BMI) [Ratio] 31.59 kg/m2 Treatment Wstr Work Phone: [facility] 02-27-2025 11:04-0400 Body temperature 97.59 [degF] Treatment Wstr Work Phone: [facility] 02-27-2025 11:04-0400 Body weight 78.47 kg Treatment Wstr Work Phone: [facility] 02-27-2025 11:04-0400 SaO2% (BldA) [Mass fraction] 94 % Treatment Wstr Work Phone: [facility] 02-18-2025 11:50-0400 Diastolic blood pressure 80 mm[Hg] Shelly Su MD Work Phone: [facility] 02-18-2025 11:50-0400 Heart rate 82 /min Shelly Su MD Work Phone: [facility] 02-18-2025 11:50-0400 Respiratory rate 13 /min Shelly Su MD Work Phone: [facility] 02-18-2025 11:50-0400 SaO2% (BldA) [Mass fraction] 98 % Shelly Su MD Work Phone: [facility] 02-18-2025 11:50-0400 Systolic blood pressure 135 mm[Hg] Shelly Su MD Work Phone: [facility] 02-06-2025 15:06-0400 Body height 157.[address] Henrry Odom MD Work Phone: [facility] 02-06-2025 14:56-0400 Body weight 76.[address] Henrry Odom MD Work Phone: [facility] 02-06-2025 14:56-0400 Diastolic blood pressure 86 mm[Hg] Dr. Henrry Odom MD Work Phone: [facility] 02-06-2025 14:56-0400 Heart rate 100 /min Dr. Henrry Odom MD Work Phone: [facility] 02-06-2025 14:56-0400 Respiratory rate 20 /min Dr. Henrry Odom MD Work Phone: [facility] 02-06-2025 14:56-0400 Systolic blood pressure 133 mm[Hg] Dr. Henrry Odom MD Work Phone: [facility] 02-01-2025 14:44-0400 Body temperature 97.9 [degF] Dr. Henrry Odom MD Work Phone: 3(894)273-323741 [address] 02-01-2025 14:44-0400 Diastolic blood pressure 81 mm[Hg] Dr. Henrry Odom MD Work Phone: 1(355)900-932298 [place] [address] 02-01-2025 14:44-0400 Heart rate 88 /min Dr. Henrry Odom MD Work Phone: 1(088)502-948798 [place] [address] 02-01-2025 14:44-0400 Respiratory rate 20 /min Dr. Henrry Odom MD Work Phone: 8(890)000-212541 [address] 02-01-2025 14:44-0400 SaO2% (BldA) [Mass fraction] 97 % Dr. Henrry Odom MD Work Phone: [facility] 02-01-2025 14:44-0400 Systolic blood pressure 158 mm[Hg] Dr. Henrry Odom MD Work Phone: [facility] 02-01-2025 11:08-0400 Body height 157.[address] Henrry Odom MD Work Phone: 1(519)340-156541 [address] 02-01-2025 11:08-0400 Body mass index (BMI) [Ratio] 32.4 kg/m2 Dr. Henrry Odom MD Work Phone: 7(069)851-281598 [place] [address] 02-01-2025 11:08-0400 Body weight 80.[address] Henrry Odom MD Work Phone: 8(267)972-342298 [place] [address] 10-24-2024 11:51-0500 Body height 157.6 cm Kelly Mynor PA-C Work Phone: [facility] 10-24-2024 11:51-0500 Body mass index (BMI) [Ratio] 34.67 kg/m2 Kelly Mynor PA-C Work Phone: [facility] 10-24-2024 11:51-0500 Body temperature 98.01 [degF] Kelly Virginia PA-C Work Phone: [facility] 10-24-2024 11:51-0500 Body weight 86.1 kg Kelly Virginia PA-C Work Phone: [facility] 10-24-2024 11:51-0500 Diastolic blood pressure 88 mm[Hg] Kelly Mynor PA-C Work Phone: [facility] 10-24-2024 11:51-0500 Heart rate 76 /min Kelly Mynor PA-C Work Phone: [facility] 10-24-2024 11:51-0500 Respiratory rate 13 /min Kelly Mynor PA-C Work Phone: [facility] 10-24-2024 11:51-0500 SaO2% (BldA) [Mass fraction] 95 % Kelly Virginia PA-C Work Phone: [facility] 10-24-2024 11:51-0500 Systolic blood pressure 163 mm[Hg] Kelly Mynor PA-C Work Phone: [facility] 07-14-2023 14:47-0500 Body height 157.[address] Duane Odom Work Phone: [facility] 04-11-2023 14:59-0400 Body temperature 97.8 [degF] Dr. Duane Odom Work Phone: [facility] 04-11-2023 14:59-0400 Diastolic blood pressure 86 mm[Hg] Dr. Duane Odom Work Phone: [facility] 04-11-2023 14:59-0400 Heart rate 80 /min Dr. Duane Odom Work Phone: [facility] 04-11-2023 14:59-0400 Respiratory rate 18 /min Dr. Duane Odom Work Phone: [facility] 04-11-2023 14:59-0400 SaO2% (BldA) [Mass fraction] 93 % Dr. Duane Odom Work Phone: [facility] 04-11-2023 14:59-0400 Systolic blood pressure 143 mm[Hg] Dr. Duane Odom Work Phone: 3(656)864-864341 [address] 04-11-2023 04:30-0400 Inhaled oxygen flow rate 2 L/min Dr. Duane Odom Work Phone: 1(259)568-090498 [place] [address] 04-06-2023 17:11-0400 Body height 157.[address] Duane Odom Work Phone: 9(095)170-167698 [place] [address] 04-06-2023 17:11-0400 Body mass index (BMI) [Ratio] 37 kg/m2 Dr. Duane Odom Work Phone: 5(877)916-604698 [place] [address] 04-06-2023 17:11-0400 Body weight [address] Duane Odom Work Phone: [facility] 02-10-2023 07:00-0400 Body temperature 98.4 [degF] Dr. Duane Odom Work Phone: [facility] 02-10-2023 07:00-0400 Diastolic blood pressure 85 mm[Hg] Dr. Duane Odom Work Phone: [facility] 02-10-2023 07:00-0400 Heart rate 93 /min Dr. Duane Odom Work Phone: [facility] 02-10-2023 07:00-0400 Respiratory rate 18 /min Dr. Duane Odom Work Phone: [facility] 02-10-2023 07:00-0400 SaO2% (BldA) [Mass fraction] 99 % Dr. Duane Odom Work Phone: [facility] 02-10-2023 07:00-0400 Systolic blood pressure 168 mm[Hg] Dr. Duane Odom Work Phone: [facility] 02-08-2023 10:17-0400 Body mass index (BMI) [Ratio] 36.6 kg/m2 Dr. Duane Odom Work Phone: [facility] 02-08-2023 10:17-0400 Body weight 90.[address] Duane Odom Work Phone: 4(751)138-989598 [place] [address] 02-02-2023 13:56-0400 Body height 157.[address] Duane Odom Work Phone: 3(757)245-615698 [place] [address] 12-31-2022 14:35-0400 Body temperature 98.2 [degF] Dr. Duane Odom Work Phone: [facility] 12-31-2022 14:35-0400 Diastolic blood pressure 66 mm[Hg] Dr. Duane Odom Work Phone: 8(429)425-915698 [place] [address] 12-31-2022 14:35-0400 Heart rate 90 /min Dr. Duane Odom Work Phone: 0(639)025-458898 [place] [address] 12-31-2022 14:35-0400 Respiratory rate 16 /min Dr. Duane Odom Work Phone: [facility] 12-31-2022 14:35-0400 SaO2% (BldA) [Mass fraction] 93 % Dr. Duane Odom Work Phone: [facility] 12-31-2022 14:35-0400 Systolic blood pressure 131 mm[Hg] Dr. Duane Odom Work Phone: [facility] 12-31-2022 10:05-0400 Inhaled oxygen flow rate 2 L/min Dr. Duane Odom Work Phone: [facility] 12-29-2022 18:38-0400 Body height 157.[address] Duane Odom Work Phone: [facility] 12-29-2022 18:38-0400 Body mass index (BMI) [Ratio] 36 kg/m2 Dr. Duane Odom Work Phone: [facility] 12-29-2022 18:38-0400 Body weight 89.[address] Duane Odom Work Phone: [facility] 12-24-2022 12:46-0400 Body mass index (BMI) [Ratio] 36 kg/m2 Dr. Duane Odom Work Phone: [facility] 12-24-2022 12:46-0400 Body weight 89.[address] Duane Odom Work Phone: [facility] 12-24-2022 12:46-0400 Diastolic blood pressure 69 mm[Hg] Dr. Duane Odom Work Phone: [facility] 12-24-2022 12:46-0400 Heart rate 89 /min Dr. Duane Odom Work Phone: [facility] 12-24-2022 12:46-0400 Respiratory rate 18 /min Dr. Duane Odom Work Phone: [facility] 12-24-2022 12:46-0400 SaO2% (BldA) [Mass fraction] 96 % Dr. Duane Odom Work Phone: [facility] 12-24-2022 12:46-0400 Systolic blood pressure 128 mm[Hg] Dr. Duane Odom Work Phone: [facility] 09-21-2022 11:30-0500 Diastolic blood pressure 79 mm[Hg] Treatment Wstr Work Phone: [facility] 09-21-2022 11:30-0500 Heart rate 82 /min Treatment Wstr Work Phone: [facility] 09-21-2022 11:30-0500 Respiratory rate 16 /min Treatment Wstr Work Phone: [facility] 09-21-2022 11:30-0500 SaO2% (BldA) [Mass fraction] 97 % Treatment Wstr Work Phone: [facility] 09-21-2022 11:30-0500 Systolic blood pressure 125 mm[Hg] Treatment Wstr Work Phone: [facility] 09-21-2022 09:24-0500 Body temperature 96.6 [degF] Treatment Wstr Work Phone: [facility] 09-21-2022 09:24-0500 Body weight 91.4 kg Treatment Wstr Work Phone: [facility] 07-27-2022 08:58-0500 Body temperature 98.6 [degF] Treatment Wstr Work Phone: [facility] 07-27-2022 08:58-0500 Body weight 91.4 kg Treatment Wstr Work Phone: [facility] 07-27-2022 08:58-0500 Diastolic blood pressure 73 mm[Hg] Treatment Wstr Work Phone: [facility] 07-27-2022 08:58-0500 Heart rate 74 /min Treatment Wstr Work Phone: [facility] 07-27-2022 08:58-0500 Respiratory rate 16 /min Treatment Wstr Work Phone: [facility] 07-27-2022 08:58-0500 SaO2% (BldA) [Mass fraction] 97 % Treatment Wstr Work Phone: [facility] 07-27-2022 08:58-0500 Systolic blood pressure 137 mm[Hg] Treatment Wstr Work Phone: [facility] 05-18-2022 10:55-0400 Body temperature 98.49 [degF] Treatment Wstr Work Phone: [facility] 05-18-2022 10:55-0400 Diastolic blood pressure 84 mm[Hg] Treatment Wstr Work Phone: [facility] 05-18-2022 10:55-0400 Heart rate 86 /min Treatment Wstr Work Phone: [facility] 05-18-2022 10:55-0400 Respiratory rate 20 /min Treatment Wstr Work Phone: [facility] 05-18-2022 10:55-0400 Systolic blood pressure 136 mm[Hg] Treatment Wstr Work Phone: [facility] 03-05-2022 09:32-0400 Body temperature 97.3 [degF] Treatment Wstr Work Phone: [facility] 03-05-2022 09:32-0400 Diastolic blood pressure 76 mm[Hg] Treatment Wstr Work Phone: [facility] 03-05-2022 09:32-0400 Heart rate 92 /min Treatment Wstr Work Phone: [facility] 03-05-2022 09:32-0400 Systolic blood pressure 154 mm[Hg] Treatment Wstr Work Phone: [facility] 02-25-2022 15:53-0400 Diastolic blood pressure 100 mm[Hg] Dr. Duane Odom Work Phone: [facility] Work Phone: 02-25-2022 15:53-0400 Systolic blood pressure 156 mm[Hg] Dr. Duane Odom Work Phone: [facility] Work Phone: 02-25-2022 15:07-0400 Body height 157.[address] Duane Odom Work Phone: [facility] Work Phone: 02-25-2022 15:07-0400 Body mass index (BMI) [Ratio] 37.3 kg/m2 Dr. Duane Odom Work Phone: [facility] Work Phone: 02-25-2022 15:07-0400 Body weight 92.[address] Duane Odom Work Phone: [facility] Work Phone: 02-25-2022 15:07-0400 Heart rate 80 /min Dr. Duane Odom Work Phone: [facility] Work Phone: 02-25-2022 15:07-0400 Respiratory rate 16 /min Dr. Duane Odom Work Phone: [facility] Work Phone: 01-12-2022 11:48-0400 Diastolic blood pressure 91 mm[Hg] Treatment Wstr Work Phone: [facility] 01-12-2022 11:48-0400 Heart rate 108 /min Treatment Wstr Work Phone: [facility] 01-12-2022 11:48-0400 SaO2% (BldA) [Mass fraction] 100 % Treatment Wstr Work Phone: [facility] 01-12-2022 11:48-0400 Systolic blood pressure 132 mm[Hg] Treatment Wstr Work Phone: [facility] 01-12-2022 10:55-0400 Body temperature 97.9 [degF] Treatment Wstr Work Phone: [facility] Encounters Encounter Date Encounter Type Care Provider Facility Start: 05-20-2025 End: 05-20-2025 ambulatory Henrry Odom Facility:[facility] Start: 05-08-2025 End: 05-08-2025 ambulatory SHELLY SU Facility:[facility] Start: 05-08-2025 End: 05-08-2025 Patient encounter procedure Shelly Su MD Work Phone: [facility] Comment on above: Pain in joint, multi ple sites (Primary Dx); Vitamin D deficiency; Diarrhea, unspecified type; Rheumatoid arthritis involving multiple sites with positive rheumatoid factor (HCC) Start: 05-08-2025 End: 05-08-2025 Telemedicine consultation with patient Shelly Su MD Work Phone: [facility] Start: 04-30-2025 ambulatory Deshawn Mascorro [employer]NALY[employer] Facility :[facility] Start: 04-15-2025 ambulatory Henrry Odom Faci lity:[facility] Start: 03-21-2025 ambulatory Deshawn Mascorro [employer] DEVELOPMENT ANALYST Facility :[facility] Start: 03-21-2025 Non-patient / Non-visit [facility]. Hector [facility] Start: 03-21-2025 End: 03-21-[address] Henrry Odom MD Work Phone: -Cardiovascular Services Start: 03-21-2025 End: 03-21-2025 Patient encounter procedure Deshawn Mascorro MARKET DEVELOPMENT ANALYST-C -Cardiovascular Services Work Phone: Start: 03-21-2025 End: 03-21-2025 ambulatory Henrry Odom Facility:[facility] Start: 03-13-2025 End: 03-15-2025 Refill Shelly Su MD Work Phone: [facility] Comment on above: Med Change Request Start: 03-13-2025 End: 03-13-2025 ambulatory Treatment Rm 12 [facility] Work Phone: Hematology/Oncology Comment on above: Rheumatoid arthritis of multiple sites without organ or system involvement with positive rheumatoid factor (HCC) (Primary Dx) Start: 03-12-2025 End: 03-12-[address] Henrry Odom MD Work Phone: -Pulmonary Services/Neurology Start: 03-12-2025 End: 03-12-2025 Patient encounter procedure Deshawn Mascorro MARKET DEVELOPMENT ANALYST-C -Pulmonary Services/Neurology Work Phone: Start: 03-06-2025 End: 03-06-2025 Telephone encounter Shelly Su MD Work Phone: [facility] Comment on above: Patient Update Start: 02-27-2025 End: 02-27-2025 ambulatory HENRRY ODOM Facility:[facility] Start: 02-27-2025 End: 02-27-2025 ambulatory [facility] [place] Work Phone: Hematology/Oncology Comment on above: Iron deficiency anem ia, unspecified iron deficiency anemia type (Primary Dx); Rheumatoid arthritis of multiple sites without organ or system involvement with positive rheumatoid factor (HCC) Rheumatoid arthritis of multiple sites without organ or system involvement with positive rheumatoid factor (HCC) (Primary Dx); High risk medication use; Iron deficiency anemia, unspecified iron deficiency anemia type Start: 02-26-2025 End: 02-26-2025 Telephone encounter Silvano Ko DO Work Phone: Hematology/Oncology Comment on above: Appointment Start: 02-25-2025 End: 02-25-2025 Telephone encounter Shelly Su MD Work Phone: [facility] Comment on above: [employer] - APPR ADINA ([employer], [place] - Completed by the pharmacy team) Start: 02-21-2025 End: 02-22-2025 Telephone encounter Shelly Su MD Work Phone: [facility] Comment on above: Results Start: 02-18-2025 End: 02-19-2025 Telephone encounter Denita Moody MD Work Phone: Hematology/Oncology Comment on above: Orders Start: 02-18-2025 End: 02-18-2025 ambulatory SHELLY SU [facility] Start: 02-18-2025 End: 02-18-2025 Patient encounter procedure Shelly Su MD Work Phone: [facility] Comment on above: Pain in joint, multi ple sites (Primary Dx); Vitamin D deficiency; Rheumatoid arthritis with rheumatoid factor of multiple sites without organ or systems involvement (HCC); Fibromyalgia; Infection and inflammatory reaction due to internal left knee prosthesis, initial encounter Start: 02-18-2025 End: 02-18-2025 ambulatory SHELLY SU Facility:[facility] Start: 02-14-2025 End: 02-14-2025 Refill Kelly Lowe PA-C Work Phone: [facility] Comment on above: Refill Request Start: 02-06-2025 End: 02-06-[address] Henrry Odom MD Work Phone: [facility] Work Phone: Start: 02-06-2025 End: 02-06-2025 Patient encounter procedure Deshawn Mascorro MARKET DEVELOPMENT ANALYST-C -Laboratory Work Phone: Start: 02-06-2025 End: 02-06-2025 Patient encounter procedure Deshawn Mascorro MARKET DEVELOPMENT ANALYST-C -[facility] Work Phone: Start: 02-06-2025 End: 02-06-[address] Henrry Odom MD Work Phone: [facility] Work Phone: Start: 02-06-2025 End: 02-06-2025 ambulatory Deshawn Mascorro MARKET DEVELOPMENT ANALYST Facility:[facility] Start: 02-01-[address] Kirby Pritchett MD -Cardiovascular Services Work Phone: Start: 02-01-2025 End: 02-01-2025 Emergency department patient visit Dr. Henrry Odom MD Work Phone: -Emergency Department Work Phone: Start: 11-29-2024 End: 01-29-2025 Follow-up encounter Kellydavid MarieMynor PA-C Work Phone: [facility] Rheumatology Start: 11-27-2024 End: 11-27-2024 ambulatory KELLY MYNOR Facility:[facility] Start: 11-16-2024 End: 11-16-2024 Refill Kelly Mynor PA-C [facility] Phone: [facility] Comment on above: Med Change Request Start: 11-15-2024 End: 11-15-2024 Telemedicine consultation with patient Kelly Mynor PA-C Work Phone: [facility] Start: 11-15-2024 End: 11-15-2024 ambulatory Kelly Mynor PA-C Work Phone: [facility] Rheumatology Comment on above: Rheumatoid arthritis of multiple sites without organ or system involvement with positive rheumatoid factor (HCC) (Primary Dx); High risk medication use; Fibromyalgia; Frequent urination Start: 11-14-2024 End: 11-14-2024 Telephone encounter Kelly Lowe PA-C Work Phone: [facility] Rheumatology [facility] Arthritis Comment on above: Patient Question Start: 11-07-2024 End: 11-07-2024 Telephone encounter Kelly Lowe PA-C Work Phone: [facility] Rhe[facility]ology [facility] Arthritis Comment on above: Patient Update Start: 11-02-2024 End: 11-07-2024 E-mail encounter from caregiver Kelly Lowe PA-C Work Phone: [facility] Start: 11-02-2024 End: 11-07-2024 Patient encounter procedure Kelly Lowe PA-C Work Phone: [facility]ology [facility] Arthritis Comment on above: Appointment Request Start: 11-01-2024 End: 11-01-2024 Telephone encounter Kelly Lowe PA-C Work Phone: [facility] Rheumatology Comment on above: Patient Update; Medi cation Problem Start: 10-24-2024 End: 10-24-2024 ambulatory KELLY LOWE Facility:[facility] Start: 10-24-2024 End: 10-24-2024 Office outpatient visit 40 minutes Kelly Lowe PA-C Work Phone: [facility] Rheumatology [facility] Arthritis Comment on above: Rheumatoid arthritis of multiple sites without organ or system involvement with positive rheumatoid factor (HCC) (Primary Dx); High risk medication use; Abnormal SPEP Start: 10-12-2024 End: 10-15-2024 Telephone encounter Shelly Su MD Work Phone: [facility] Rheumatology [facility] Arthritis Comment on above: Appointment Start: 10-11-2024 End: 10-11-[address] Henrry Odom MD -[facility] Start: 10-11-2024 End: 10-11-2024 Telephone encounter Shelly uS MD Work Phone: [facility] Comment on above: Political Organizer - O ther; Patient Update Start: 10-11-2024 End: 10-11-2024 ambulatory Henrry Odom Facility:[facility] Start: 07-21-2023 End: 07-21-[address] Duane Odom Work Phone: [facility] Work Phone: Start: 07-21-2023 End: 07-21-[address] Duane Odom Work Phone: [facility] Start: 07-19-2023 End: 07-19-[address] Duane Odom Work Phone: [facility] Work Phone: Start: 07-19-2023 End: 07-19-[address] Duane Odom Work Phone: [facility]-Outpatient Pavilion Ultrasound Work Phone: Start: 07-14-2023 End: 07-14-[address] Duane Odom Work Phone: [facility] Work Phone: Start: 07-14-2023 End: 07-14-[address] Duane Odom Work Phone: [facility]-Outpatient Bone Densitometry Work Phone: Start: 05-19-2023 End: 05-19-[address] Duane Odom Work Phone: [facility] Work Phone: Start: 05-19-2023 End: 05-19-[address] Duane Odom Work Phone: [facility] Work Phone: Start: 04-08-2023 End: 04-08-2023 Non-patient / Non-visit Dr. Duane Odom Work Phone: [facility] Work Phone: Start: 04-08-2023 Non-patient / Non-visit Dr. Pritesh Odom Work Phone: [facility] Inpatient Physicians Work Phone: Start: 04-07-2023 Non-patient / Non-visit Dr. Pritesh Odom Work Phone: [facility] Work Phone: Start: 04-06-2023 Non-patient / Non-visit Dr. Pritesh Odom Work Phone: [facility] Physicians Work Phone: Start: 04-06-2023 End: 04-11-2023 Evaluation and management of inpatient Dr. Duane Odom [facility] Work Phone: Start: 03-24-2023 End: 03-24-[address] Duane Odom Work Phone: [facility] [place] Work Phone: Start: 03-04-2023 End: 03-04-[address] Duane Odom Work Phone: [facility] Work Phone: Start: 03-04-2023 End: 03-04-[address] Duane Odom [facility] Work Phone: Start: 03-02-2023 End: 03-02-[address] Duane Odom Work Phone: [facility] Work Phone: Start: 03-02-2023 End: 03-02-[address] Duane Odom Work Phone: [facility]-Pre-Admission Testing Work Phone: Start: 02-23-2023 End: 02-23-2023 ambulatory Shelly Su MD Work Phone: [facility] Rheumatology and Arthritis Comment on above: Rheumatoid arthritis of multiple sites without organ or system involvement with positive rheumatoid factor (HCC) (Primary Dx); High risk medication use; Low back pain, unspecified back pain laterality, unspecified chronicity, unspecified whether sciatica present; Infective arthritis (HCC) Start: 02-23-2023 End: 02-23-2023 Telemedicine consultation with patient Shelly Su MD Work Phone: [facility] Start: 02-10-2023 End: 02-10-[address] Duane Odom Work Phone: [facility] Work Phone: Start: 02-10-2023 End: 02-10-[address] Duane Odom Work Phone: [facility]-Laboratory Start: 01-04-2023 Refill Shelly garcia MD Work Phone: [facility] Rheumatology [facility] Arthritis Comment on above: Refill Request Start: 12-31-2022 End: 02-10-2023 Evaluation and management of inpatient Dr. Duane Odom Work Phone: [facility]-Transitional Care Unit Start: 12-31-2022 Non-patient / Non-visit Dr. Pritesh Odmo Work Phone: [facility] Inpatient Physicians Start: 12-30-2022 Non-patient / Non-visit Dr. Pritesh Odom Work Phone: [facility] Inpatient Physicians Start: 12-29-2022 Non-patient / Non-visit Dr. Pritesh Odom Work Phone: [facility] Inpatient Physicians Start: 12-29-2022 End: 12-31-2022 Evaluation and management of inpatient Dr. Duane Odom Work Phone: [facility]-Medical Surgical 3 Start: 12-27-2022 End: 12-27-[address] Duane Odom Work Phone: [facility]-Laboratory, Verna Webb Start: 12-24-2022 End: 12-24-[address] Duane Odom Work Phone: [facility] Start: 12-08-2022 End: 12-08-2022 ambulatory [facility] Work Phone: Start: 12-08-2022 End: 12-08-2022 Patient encounter procedure [facility]-Laboratory, Specimen Start: 12-01-2022 Telephone encounter Shelly alvarez MD Work Phone: [facility] Rheumatology [facility] Arthritis Comment on above: Erroneous encounter- disregard Start: 11-29-2022 End: 11-29-2022 Patient encounter procedure [facility]-Laboratory Start: 11-22-2022 Telephone encounter Shelly alvarez MD Work Phone: [facility] Rheumatology [facility] Arthritis Comment on above: Patient Question Refill Request Start: 11-15-2022 End: 11-15-2022 Subsequent hospital visit by physician [place] [facility] Comment on above: Acute pain of left k nee [M25.562] Start: 10-12-2022 End: 10-12-2022 ambulatory Shelly Su MD Work Phone: [facility] Rheumatology [facility] Arthritis Comment on above: Pain in joint, multi ple sites (Primary Dx); Rheumatoid arthritis involving multiple sites with positive rheumatoid factor (HCC); High risk medication use Start: 10-12-2022 End: 10-12-2022 Telemedicine consultation with patient Shelly Su MD Work Phone: [facility] Start: 09-21-2022 End: 01-17-2023 ambulatory Treatment Rm [facility] Work Phone: Hematology/Oncology Comment on above: Rheumatoid arthritis of multiple sites without organ or system involvement with positive rheumatoid factor (HCC) (Primary Dx) Start: 07-27-2022 End: 07-27-2022 ambulatory Treatment Rm 8 [facility] Work Phone: Hematology/Oncology Comment on above: Rheumatoid arthritis of multiple sites without organ or system involvement with positive rheumatoid factor (HCC) (Primary Dx) Start: 07-13-2022 Telephone encounter Silvano merritt DO Work Phone: Hematology/Oncology Comment on above: Appointment Cancelle d Patient Update Start: 05-18-2022 End: 05-18-2022 Orders Only Carrillo Sanders MD Work Phone: [facility] Arthritis [facility] Rheumatology Comment on above: Rheumatoid arthritis of multiple sites without organ or system involvement with positive rheumatoid factor (HCC) (Primary Dx) Start: 04-30-2022 Telephone encounter Silvano merritt DO Work Phone: Hematology/Oncology Comment on above: Appointment Cancelle d Start: 03-05-2022 End: 03-05-2022 ambulatory Treatment Rm 7 [facility] Work Phone: Hematology/Oncology Comment on above: Rheumatoid arthritis of multiple sites without organ or system involvement with positive rheumatoid factor (HCC) (Primary Dx) Start: 03-03-2022 End: 03-03-[address] Duane Odom Work Phone: [facility]-Laboratory, Specimen Start: 02-25-2022 End: 02-25-[address] Duane Odom Work Phone: [facility] Start: 02-24-2022 Telephone encounter Shelly alvarez MD Work Phone: [facility] Comment on above: No Show Start: 01-27-2022 End: 01-27-2022 Patient encounter procedure [facility] Start: 01-25-2022 Telephone encounter Shelly alvarez MD Work Phone: [facility] Rheumatology [facility] Arthritis Comment on above: Orders Start: 01-12-2022 End: 01-12-2022 ambulatory Treatment Rm 11 [facility] Work Phone: Hematology/Oncology Comment on above: Rheumatoid arthritis of multiple sites without organ or system involvement with positive rheumatoid factor (HCC) (Primary Dx) Start: 01-07-2022 Telephone encounter Silvano merritt DO Work Phone: Hematology/Oncology Comment on above: Appointment Cancelle d Start: 12-23-2021 Refill Shelly garcia MD Work Phone: [facility] Rheumatology [facility] Arthritis Comment on above: Refill Request Start: 11-27-2021 End: 11-27-2021 Patient encounter procedure [facility]-Laboratory Start: 08-13-2021 End: 08-13-2021 Discharged Recurring [facility]-Physical Therapy Start: 07-09-2020 Patient encounter status [facility] Start: 01-10-2018 Ambulatory [facility] Facility:[facility] Start: 11-01-2017 Ambulatory [facility] Facility:[facility] Start: 09-27-2017 Ambulatory [facility] Facility:[facility] Start: 09-27-2017 Ambulatory PROVIDER UNKNOWN Facili ty:[facility] Start: 08-12-2017 Ambulatory [facility] Facility:[id number] Start: 06-28-2017 Ambulatory [facility] Facility:[facility] Start: 06-28-2017 Ambulatory [facility] Facility:[facility] Procedures Date Procedure Procedure Detail Performing Clinician Start: 03-21-2025 Cardiovascular stres s test using pharmacologic stress agent Dr. Henrry Odom MD Work Phone: Start: 02-27-2025 Blood count complete auto&auto difrntl wbc Henrry Odom MD Work Phone: Start: 02-01-2025 CT angiography of est with contrast Dr. Henrry Odom MD Work Phone: Start: 02-01-2025 X-ray of chest, PA a nd lateral views Dr. Henrry Odom MD Work Phone: Start: 02-01-2025 D-dimer assay, quantitative Dr. Henrry Odom MD Work Phone: Comment on above: CRITICAL VALUE ESCOTO D TO Vandana MARCUM02/01/25 1208 Gladys Beatty.RESULTS READ BACK BY SAME. D-Dimer ELEVATED (>0.49): Additional studies and clinicalassessments are indicated to conclude diagnosis of:Deep Vein Thrombosis (DVT) or Pulmonary Embolism (PE) Start: 02-01-[address] Henrry Odom MD Work Phone: Start: 10-11-[address] Henrry Odom MD Work Phone: Start: 10-11-[address] Deonna Odom MD Work Phone: Comment on above: Performed at: [address] Director: Bart Goff PhD, Phone: [phone] Start: 10-11-2024 Electrophoresis: [id number] Dr. Henrry Odom MD Work Phone: Start: 10-11-2024 Electrophoresis: [id number] Dr. Henrry Odom MD Work Phone: Start: 10-11-2024 Electrophoresis: emeterio ma globulin Dr. Henrry Odom MD Work Phone: Start: 10-11-2024 Measurement of renal function Dr. Henrry Odom MD Work Phone: Comment on above: GFR Calc Start: 10-11-[address] Henrry Odom MD Work Phone: Start: 10-11-[address] Henrry Odom MD Work Phone: Start: 10-11-[address] Henrry Odom MD Work Phone: Start: 10-11-2024 Vitamin D, 25-hydrox y measurement Dr. Henrry Odom MD Work Phone: Comment on above: Vitamin D 25(OH) Sta tus Range Deficiency <20 ng/mL (50nmol/L) Insufficiency 20 - 30 ng/mL (50 - 75 nmol/L) Sufficiency 30 - 100 ng/mL (75 - 250 nmol/L) Toxicity >100 ng/mL (>250 nmol/L) Start: 07-19-[address] Duane Odom Work Phone: Start: 07-14-2023 Dual energy X-ray absorptiometry Dr. Duane Odom Work Phone: Start: 07-14-2023 Screening mammography Raphael Odmo Work Phone: Start: 05-19-2023 Bacteria identified in Urine by Culture Dr. Duane Odom Work Phone: Start: 05-19-[address] Enrico Odom Work Phone: Start: 04-06-2023 Acid fast bacilli culture Dr. Duane Odom Work Phone: Start: 04-06-[address] Duane Odom Work Phone: Start: 04-06-2023 Cytopathology proced ure, preparation of smear, genital source Dr. Duane Odom Work Phone: Start: 04-06-[address] Duane Odom Work Phone: Start: 04-06-2023 Investigation of tra nsfusion reaction Dr. Duane Odom Work Phone: Start: 04-06-2023 Microbial culture, routine Dr. Duane Odom Work Phone: Start: 04-06-[address] Pritesh Odom Work Phone: Start: 04-06-2023 Radiologic examinati on of knee Dr. Duane Odom Work Phone: Start: 04-06-2023 Revision of left tot al knee arthroplasty Dr. Duane Odom Work Phone: Start: 03-24-2023 Diagnostic radiograp hy of abdomen, decubitus and erect Dr. Duane Odom Work Phone: Start: 03-24-2023 Bacteria identified in Urine by Culture Dr. Duane Odom Work Phone: Start: 03-24-[address] Enrico Odom Work Phone: Start: 03-04-2023 Acid fast bacilli culture Dr. Duane Odom Work Phone: Start: 03-04-[address] Duane Odom Work Phone: Start: 03-04-2023 Cytopathology proced ure, preparation of smear, genital source Dr. Duane Odom Work Phone: Start: 03-04-2023 Investigation of tra nsfusion reaction Dr. Duane Odom Work Phone: Start: 03-04-2023 Microbial culture, routine Dr. Duane Odom Work Phone: Start: 03-04-2023 Microscopic observat ion [Identifier] in Unspecified specimen by Gram stain Dr. Duane Odom Work Phone: Start: 03-04-[address] Pritesh Odom Work Phone: Start: 03-04-2023 Nasal Screen MRSA/MSSA Dr. Duane Odom Work Phone: Start: 03-04-[address] Enrico Odom Work Phone: Start: 01-25-[address] Jayy Odom Work Phone: Start: 01-08-2023 Diagnostic radiograp hy of abdomen Dr. Duane Odom Work Phone: Start: 01-04-[address] Duane Odom Work Phone: Start: 01-01-2023 Diagnostic radiograp hy of abdomen Dr. Duane Odom Work Phone: Start: 12-31-[address] Duane Odom Work Phone: Start: 12-29-2022 Radiologic examinati on of knee Dr. Duane Odom Work Phone: Start: 12-29-2022 Acid fast bacilli culture Dr. Duane Odom Work Phone: Start: 12-29-2022 Cytopathology proced ure, preparation of smear, genital source Dr. Duane Odom Work Phone: Start: 12-29-[address] Duane Odom Work Phone: Start: 12-29-[address] Pritesh Odom Work Phone: Start: 12-29-2022 Total Knee Explant, with ATB Spacer (Left) Dr. Duane Odom Work Phone: Start: 12-08-2022 Acid fast bacilli culture Dr. Duane Odom Work Phone: Start: 12-08-2022 Cytopathology proced ure, preparation of smear, genital source Dr. Duane Odom Work Phone: Start: 12-08-[address] Pritesh Odom Work Phone: Start: 01-26-2019 Lipid 1996 panel - S bert or Plasma Shelly Su MD Work Phone: Start: 05-27-2016 Adult depression scr eening assessment Shelly Su MD Work Phone: Start: 05-12-2016 History of placement of stent in anterior descending branch of left coronary artery Status post insertion of drug-eluting stent into left anterior descending artery for coronary artery disease Shelly Su MD Work Phone: Start: 04-26-2016 History of placement of stent for coronary artery disease History of coronary artery stent placement Deshawn Mascorro MARKET DEVELOPMENT ANALYSTCarlosC Comment on above: PCI-SHILPI-LAD w/ 2.75 x 16 mm Promus Premier 04/26/2016 Start: 08-17-2012 Mammography Shelly alvarez MD Work Phone: Acid fast bacilli culture Dr Jayy Odom Work Phone: Acid fast bacilli culture Dr Jayy Odom Work Phone: Anaerobic microbial culture Anaerobic microbial culture Dr. Duane Odom Work Phone: Bacteria identified in Urine by Culture Dr. Duane Odom Work Phone: Bacterial culture Cytopathology proced ure, preparation of smear, genital source Dr. Duane Odom Work Phone: Cytopathology proced ure, preparation of smear, genital source Dr. Duane Odom Work Phone: Fungus stain method Dr. David Odom Work Phone: H/O: surgery Status post incision and drainage Investigation of tra nsfusion reaction Investigation of tra nsfusion reaction Dr. Duane Odom Work Phone: Microbial culture, routine D pretty Odom Work Phone: Mycology culture Dr. Julio Odom Work Phone: Mycology culture Dr. Julio Odom Work Phone: Urine culture Dr. Duane Odom Work Phone: Plan of Treatment Date Care Activity Detail Author Start: 02-19-2028 Diabetes Screening Diabetes Screenrosy [facility] Start: 11-28-2027 Diabetes Screening Diabetes Screenin [facility] Start: 11-15-2025 DIABETES SCREEN DIABETES SCREEN [facility] Start: 11-15-2025 Diabetes Screening Diabetes Screenin g [facility] Start: 10-17-2025 End: 10-17-2025 Patient encounter procedure 10/17/2025 11:20 AM EST Office Visit [facility] [address] [place] [address] Shelly Su MD [address] [place] [address] Labs soon [facility] Comment on above: Labs soon Start: 09-04-2025 End: 09-04-2025 Infusion Center 09/04/2025 10:00 AM EST Infusion Center Hematology/Oncology [address] [place] [address] RITUXIMAB 1000MG D15/ DR. SU ORDERING* Hematology/Oncology Comment on above: RITUXIMAB 1000MG D15 / DR. SU ORDERING* Start: 08-28-2025 End: 08-28-2025 ambulatory 08/28/2025 11:00 AM EST Infusion Center Hematology/Oncology [address] [place] [address] 2ND FLOOR Hematology/Oncology Comment on above: 2ND FLOOR Start: 08-21-2025 End: 08-21-2025 ambulatory Hematology/Oncology Comment on above: 2ND FLOOR RITUXIMAB 1000MG D1/ DR. SU ORDERING* Start: 08-12-2025 End: 08-12-2025 Patient encounter procedure 08/12/2025 11:40 AM EST Office Visit [facility] [address] [place] [address] Shelly Su MD [address] [place] [address] Rituximab info and schedule [facility] Comment on above: Rituximab info and s chedule Start: 07-27-2025 DIABETES SCREEN DIABETES SCREEN [facility] Start: 05-08-2025 End: 08-07-2025 25-hydroxyvitamin D3 [Mass/volume] in Serum or Plasma VITAMIN D 25 HYDROXY Lab Routine Pain in joint, multiple sites Vitamin D deficiency Expected: 05/08/2025, Expires: 08/07/2025 [facility] Comment on above: Expected: 05/08/2025 , Expires: 08/07/2025 Start: 05-08-2025 End: 08-07-2025 C reactive protein [Mass/volume] in Serum or Plasma C-REACTIVE PROTEIN Lab Routine Pain in joint, multiple sites Expected: 05/08/2025, Expires: 08/07/2025 [facility] Comment on above: Expected: 05/08/2025 , Expires: 08/07/2025 Start: 05-08-2025 End: 08-07-2025 CBC W Auto Differential panel - Blood COMPLETE BLOOD COUNT AND DIFFERENTIAL Lab Routine Pain in joint, multiple sites Expected: 05/08/2025, Expires: 08/07/2025 [facility] Work Phone: Comment on above: Expected: 05/08/2025 , Expires: 08/07/2025 Start: 05-08-2025 End: 08-07-2025 Comprehensive metabolic 2000 panel - Serum or Plasma COMPREHENSIVE METABOLIC PANEL Lab Routine Pain in joint, multiple sites Expected: 05/08/2025, Expires: 08/07/2025 [facility] Comment on above: Expected: 05/08/2025 , Expires: 08/07/2025 Start: 05-08-2025 End: 08-07-2025 Erythrocyte sedimentation rate SEDIMENTATION RATE, WESTERGREN Lab Routine Pain in joint, multiple sites Expected: 05/08/2025, Expires: 08/07/2025 [facility] Comment on above: Expected: 05/08/2025 , Expires: 08/07/2025 Start: 05-08-2025 End: 08-07-2025 Urinalysis complete panel - Urine URINALYSIS (WITH MICROSCOPIC) WITH CULTURE IF INDICATED Lab Routine Pain in joint, multiple sites Expected: 05/08/2025, Expires: 08/07/2025 [facility] Comment on above: Expected: 05/08/2025 , Expires: 08/07/2025 Start: 05-06-2025 Influenza vaccination [facility] Start: 04-24-2025 End: 04-24-2025 Patient encounter procedure 04/24/2025 11:00 AM EDT Office Visit [facility] [address] [place] [address] Kelly Lowe PA-C [id number] [place] [address] Rituximab info and schedule [facility] Comment on above: Rituximab info and s chedule Start: 03-13-2025 End: 03-13-2025 Infusion Center 03/13/2025 10:30 AM EDT Infusion Center Hematology/Oncology [address] [place], [place] [id number] RITUXIMAB 1000MG D15/ DR. SU ORDERING* Hematology/Oncology Comment on above: RITUXIMAB 1000MG D15 / DR. SU ORDERING* Start: 03-07-2025 End: 03-07-2025 ambulatory 03/07/2025 11:00 AM EDT Infusion Center Hematology/Oncology [address] [place] [address] 2ND FLOOR Hematology/Oncology Comment on above: 2ND FLOOR Start: 02-27-2025 End: 02-27-2025 Infusion Center Hematology/Oncology Comment on above: 2ND FLOOR START SMITH XIMAB 1000MG D1/ DR. SU ORDERING* START RITUXIMAB 1000 MG D1/ DR. SU ORDERING* Start: 02-22-2025 End: 05-24-2025 BLOOD TB SCREEN, INCUBATED BLOOD TB SCREEN, INCUBATED Lab Routine High risk medication use Expected: 02/22/2025, Expires: 05/24/2025 [facility] Work Phone: Comment on above: Expected: 02/22/2025 , Expires: 05/24/2025 Start: 02-18-2025 End: 05-20-2025 BLOOD TB SCREEN, INCUBATED [facility] Comment on above: Expected: 02/18/2025 , Expires: 05/20/2025 Start: 02-18-2025 End: 05-20-2025 Erythrocyte sedimentation rate [facility] Work Phone: Comment on above: Expected: 02/18/2025 , Expires: 05/20/2025 Start: 02-18-2025 End: 02-18-2026 Hepatitis B virus core Ab [Presence] in Serum [facility] Comment on above: Expected: 02/18/2025 , Expires: 02/18/2026 Start: 02-18-2025 End: 02-18-2025 Patient encounter procedure 02/18/2025 11:40 AM EDT Office Visit [facility] [address] [place] [address] Shelly Su MD [address] [place] [address] Follow up RA [facility] Comment on above: Follow up RA Start: 02-01-2025 End: 02-01-2025 [facility] Start: 01-27-2025 DIABETES SCREEN DIABETES SCREEN [facility] Start: 12-05-2024 End: 12-05-2024 Patient encounter procedure 12/05/2024 11:40 AM EDT Office Visit [facility] [address] [place] [address] Kelly Lowe PA-C [address] [place], [place] [id number] 6 week f/up [facility] Comment on above: 6 week f/up Start: 11-15-2024 End: 02-14-2025 C reactive protein [Mass/volume] in Serum or Plasma C-REACTIVE PROTEIN Lab Routine Rheumatoid arthritis of multiple sites without organ or system involvement with positive rheumatoid factor (HCC) High risk medication use Fibromyalgia Frequent urination Expected: 11/15/2024, Expires: 02/14/2025 [facility] Comment on above: Expected: 11/15/2024 , Expires: 02/14/2025 Start: 11-15-2024 End: 02-14-2025 CBC W Auto Differential panel - Blood COMPLETE BLOOD COUNT AND DIFFERENTIAL Lab Routine Rheumatoid arthritis of multiple sites without organ or system involvement with positive rheumatoid factor (HCC) High risk medication use Fibromyalgia Frequent urination Expected: 11/15/2024, Expires: 02/14/2025 [facility] Work Phone: Comment on above: Expected: 11/15/2024 , Expires: 02/14/2025 Start: 11-15-2024 End: 02-14-2025 Comprehensive metabolic 2000 panel - Serum or Plasma COMPREHENSIVE METABOLIC PANEL Lab Routine Rheumatoid arthritis of multiple sites without organ or system involvement with positive rheumatoid factor (HCC) High risk medication use Fibromyalgia Frequent urination Expected: 11/15/2024, Expires: 02/14/2025 [facility] Comment on above: Expected: 11/15/2024 , Expires: 02/14/2025 Start: 11-15-2024 End: 02-14-2025 Erythrocyte sedimentation rate SEDIMENTATION RATE, WESTERGREN Lab Routine Rheumatoid arthritis of multiple sites without organ or system involvement with positive rheumatoid factor (HCC) High risk medication use Fibromyalgia Frequent urination Expected: 11/15/2024, Expires: 02/14/2025 [facility] Comment on above: Expected: 11/15/2024 , Expires: 02/14/2025 Start: 11-15-2024 End: 02-14-2025 Hemoglobin A1c in Blood HEMOGLOBIN A1C Lab Routine Rheumatoid arthritis of multiple sites without organ or system involvement with positive rheumatoid factor (HCC) High risk medication use Fibromyalgia Frequent urination Expected: 11/15/2024, Expires: 02/14/2025 [facility] Comment on above: Expected: 11/15/2024 , Expires: 02/14/2025 Start: 11-15-2024 End: 11-15-2024 ambulatory 11/15/2024 7:20 AM [facility] [address] [place], [place] [id number] Kelly Lowe PA-C [address] [place] [address] Discuss medications [facility] Comment on above: Discuss medications Start: 10-24-2024 End: 01-23-2025 C reactive protein [Mass/volume] in Serum or Plasma C-REACTIVE PROTEIN Lab Routine Rheumatoid arthritis of multiple sites without organ or system involvement with positive rheumatoid factor (HCC) High risk medication use Expected: 10/24/2024, Expires: 01/23/2025 [facility] Comment on above: Expected: 10/24/2024 , Expires: 01/23/2025 Start: 10-24-2024 End: 01-23-2025 CBC W Auto Differential panel - Blood COMPLETE BLOOD COUNT AND DIFFERENTIAL Lab Routine Rheumatoid arthritis of multiple sites without organ or system involvement with positive rheumatoid factor (HCC) High risk medication use Expected: 10/24/2024, Expires: 01/23/2025 [facility] Work Phone: Comment on above: Expected: 10/24/2024 , Expires: 01/23/2025 Start: 10-24-2024 End: 01-23-2025 Comprehensive metabolic 2000 panel - Serum or Plasma COMPREHENSIVE METABOLIC PANEL Lab Routine Rheumatoid arthritis of multiple sites without organ or system involvement with positive rheumatoid factor (HCC) High risk medication use Expected: 10/24/2024, Expires: 01/23/2025 [facility] Comment on above: Expected: 10/24/2024 , Expires: 01/23/2025 Start: 10-24-2024 End: 01-23-2025 Erythrocyte sedimentation rate SEDIMENTATION RATE, WESTERGREN Lab Routine Rheumatoid arthritis of multiple sites without organ or system involvement with positive rheumatoid factor (HCC) High risk medication use Expected: 10/24/2024, Expires: 01/23/2025 [facility] Comment on above: Expected: 10/24/2024 , Expires: 01/23/2025 Start: 10-24-2024 End: 10-24-2024 Patient encounter procedure 10/24/2024 11:40 AM EST Office Visit [facility] [address] [place] [address] Kelly Lowe PA-C [address] [place], [place] [id number] Follow up RA [facility] Comment on above: Follow up RA Start: 09-05-2024 Advance Directive Discussion Advance Directive Discussion [facility] Start: 09-05-2024 Medicare Advantage A nnual Wellness Visit Medicare Advantage Annual Wellness Visit [facility] Start: 05-06-2024 Covid-19 Vaccine ( season) Covid-19 Vaccine ( season) [facility] Start: 05-06-2024 Influenza vaccination Influenza Vacc ine (#1) [facility] Start: 02-17-2024 Screening for osteoporosis Bone Density Screening [facility] Start: 01-27-2024 Lipid panel Lipid Screening [facility] Start: 01-27-2024 LIPID SCREEN LIPID SCREEN [facility] Start: 07-19-2023 Ultrasonography of breast [facility] Limited Unilateral [facility] Start: 07-19-2023 US Breast limited [facility] Start: 05-07-2023 DIABETES SCREEN DIABETES SCREEN [facility] Start: 05-06-2023 Influenza vaccination INFLUENZ A (Season Ended) [facility] Start: 04-11-2023 Referral to service [facility] Start: 04-11-2023 Patient discharge [facility] Start: 04-08-2023 Following clinical pathway protocol [facility] Start: 04-07-2023 Consultation for treatment [facility] Start: 04-06-2023 Application of intermittent pneumatic compression device [facility] Start: 04-06-2023 Provision of overbed trapeze [facility] Start: 04-06-2023 Ambulation therapy management [facility] Start: 04-06-2023 Application of device W [facility] Start: 04-06-2023 Application of elast ic bandage [facility] Start: 04-06-2023 Assessment of risk o f venous thromboembolism [facility] Start: 04-06-2023 Catheterization of vein [facility] Start: 04-06-2023 Exercises [facility] Start: 04-06-2023 Following clinical pathway protocol [facility] Start: 04-06-2023 Introduction of urin rachel catheter [facility] Start: 04-06-2023 Measuring intake and output [facility] Start: 04-06-2023 Neurovascular assessment [facility] Start: 04-06-2023 Patient education [facility] Start: 04-06-2023 Procedure discontinued [facility] Start: 04-06-2023 Provision of activit y privileges [facility] Start: 04-06-2023 Recommendation to continue with treatment [facility] Start: 04-06-2023 Referral to occupati onal therapist [facility] Start: 04-06-2023 Referral to service [facility] Start: 04-06-2023 Vital signs measurements [facility] Start: 04-06-2023 [facility] Start: 04-06-2023 Admission procedure [facility] Start: 04-06-2023 Consultation [facility] Start: 03-04-2023 Acid Fast Bacilli Culture Acid Fast Bacilli Culture [facility] Start: 03-04-2023 Acid Fast Bacilli Smear Acid F ast Bacilli Smear [facility] Start: 03-04-2023 Fungal Culture Fungal Culture [facility] Start: 03-04-2023 [facility] Start: 02-10-2023 Patient discharge [facility] Start: 02-09-2023 Development of care plan [facility] Start: 02-09-2023 Developing a treatme nt plan [facility] Start: 02-07-2023 [facility] Start: 01-30-2023 [facility] Start: 01-28-2023 Developing a treatme nt plan [facility] Start: 01-28-2023 Development of care plan [facility] Start: 01-05-2023 [facility] Start: 01-01-2023 Development of care plan [facility] Start: 01-01-2023 Developing a treatme nt plan [facility] Start: 01-01-2023 [facility] Start: 12-31-2022 Following clinical pathway protocol [facility] Start: 12-31-2022 Consultation [facility] Start: 12-31-2022 Peripherally inserte d central catheter care [facility] Start: 12-31-2022 Wound care [facility] Start: 12-31-2022 Admission procedure [facility] Start: 12-31-2022 Measuring intake and output [facility] Start: 12-31-2022 End: 12-31-2022 Patient referral to dietitian [facility] Start: 12-31-2022 Referral to occupati onal therapist [facility] Start: 12-31-2022 Referral to service [facility] Start: 12-31-2022 Vital signs measurements [facility] Start: 12-31-2022 End: 12-31-2022 [facility] Start: 12-31-2022 Peripherally inserte d central catheter care [facility] Start: 12-31-2022 Patient discharge [facility] Start: 12-30-2022 Oxygen therapy [facility] Start: 12-29-2022 Application of intermittent pneumatic compression device [facility] Start: 12-29-2022 Following clinical pathway protocol [facility] Start: 12-29-2022 Provision of overbed trapeze [facility] Start: 12-29-2022 Recommendation to continue with treatment [facility] Start: 12-29-2022 Ambulation therapy management [facility] Start: 12-29-2022 Application of device W [facility] Start: 12-29-2022 Application of elast ic bandage [facility] Start: 12-29-2022 Assessment of risk o f venous thromboembolism [facility] Start: 12-29-2022 Catheterization of vein [facility] Start: 12-29-2022 End: 12-29-2022 Consultation [facility] Start: 12-29-2022 Exercises [facility] Start: 12-29-2022 Following clinical pathway protocol [facility] Start: 12-29-[address] [facility] Start: 12-29-2022 Introduction of urin rachel catheter [facility] Start: 12-29-2022 Measuring intake and output [facility] Start: 12-29-2022 Neurovascular assessment [facility] Start: 12-29-2022 Patient education [facility] Start: 12-29-2022 Procedure discontinued [facility] Start: 12-29-2022 Provision of activit y privileges [facility] Start: 12-29-2022 Referral to occupati onal therapist [facility] Start: 12-29-2022 Referral to service [facility] Start: 12-29-2022 Vital signs measurements [facility] Start: 12-29-2022 Wound care [facility] Start: 12-29-2022 [facility] Start: 12-29-2022 Admission procedure [facility] Start: 12-29-2022 Application of knee immobilizer [facility] Start: 12-08-2022 [facility] Start: 09-05-2022 DEPRESSION ASSESSMENT DEPRESSION ASS [facility] Start: 05-06-2022 Influenza vaccination [facility] Start: 01-25-2022 End: 03-27-2022 CBC W Auto Differential panel - Blood CBC + DIFF Lab Routine Rheumatoid arthritis of multiple sites without organ or system involvement with positive rheumatoid factor (HCC) Expected: 01/25/2022, Expires: 03/27/2022 [facility] Work Phone: Comment on above: Expected: 01/25/2022 , Expires: 03/27/2022 Start: 01-25-2022 End: 03-27-2022 Comprehensive metabolic 2000 panel - Serum or Plasma COMP METABOLIC PANEL Lab Routine Rheumatoid arthritis of multiple sites without organ or system involvement with positive rheumatoid factor (HCC) Expected: 01/25/2022, Expires: 03/27/2022 [facility] Work Phone: Comment on above: Expected: 01/25/2022 , Expires: 03/27/2022 Start: 09-05-2021 DEPRESSION ASSESSMENT DEPRESSION ASS ESSMENT [facility] Start: 02-05-2021 COVID-19 VACCINE (3 - Moderna risk 4-dose series) COVID-19 VACCINE (3 - Moderna risk 4-dose series) [facility] Start: 02-05-2021 COVID-19 VACCINE (3 - Moderna risk series) COVID-19 VACCINE (3 - Moderna risk series) [facility] Start: 2019 RSV Vaccine (1 - Ris k 60-74 years 1-dose series) RSV Vaccine (1 - Risk 60-74 years 1-dose series) [facility] Start: 09-12-2017 HPV TESTING HPV TESTING [facility] Start: 09-12-2017 PAP TESTING PAP TESTING [facility] Start: 05-27-2017 Adult depression screening assessment DEPRESSION SCREENING [facility] Start: 09-12-2013 Screening for malign ant neoplasm of cervix Cervical Cancer Screening [facility] Start: 08-17-2013 Mammography MAMMOGRAM [facility] Start: 08-17-2013 Screening for malign ant neoplasm of breast Mammogram Screening [facility] Start: 2009 SHINGRIX VACCINE (1 of 2) PITTMAN GRIX VACCINE (1 of 2) [facility] Start: 02-17-2004 COLOGUARD (FIT-DNA) COLOGUARD (FIT-D NA) [facility] Start: 02-17-2004 Colonoscopy COLONOSCOPY [facility] Start: 02-17-2004 COLORECTAL CANCER SCREENING COLORECTAL CANCER SCREENING [facility] Start: 02-17-[address] COLONOGRAPHY [facility] Start: 02-17-2004 FECAL OCCULT BLOOD FECAL OCCULT BLOO D [facility] Start: 02-17-2004 Screening for malign ant neoplasm of colon [facility] Start: 02-17-2004 SIGMOIDOSCOPY SIGMOIDOSCOPY [facility] Start: 1989 Zoledronic acid therapy ALPHA- 1 ANTITRYPSIN DEFICIENCY SCREENING [facility] Start: 1978 ADULT PREVNAR ADULT PREVNAR [facility] Start: 1978 ADULT PREVNAR-13 ADULT PREVNAR-13 Cl [facility] Start: 1978 Pneumococcal Vaccine : 50+ (1 of 2 - PCV) Pneumococcal Vaccine: 50+ (1 of 2 - PCV) [facility] Start: 1978 SHINGRIX VACCINE (1 of 2) PITTMAN GRIX VACCINE (1 of 2) [facility] Start: 1978 TWO PNEUMOVAX 5 YEAR S APART PRIOR TO AGE 65 (#1) TWO PNEUMOVAX 5 YEARS APART PRIOR TO AGE 65 (#1) [facility] Start: 1978 Urine microalbumin profile [facility] Start: 1977 ANNUAL PCP TEAM MUSEUM SPECIALIST [place] DISEASE VISIT ANNUAL PCP TEAM CHRONIC DISEASE VISIT [facility] Start: 1977 Anxiety Screening Anxiety Screening [facility] Start: 1977 Depression Screening Depression Scre ening [facility] Start: 1977 HIV SCREENING HIV SCREENING [facility] Start: 1977 HIV screening HIV Screening [facility] Start: 1977 SPIROMETRY SPIROMETRY [facility] Start: 1965 PNEUMOCOCCAL (1 - PCV) PNEUMOCOCCAL (1 - PCV) [facility] Acid fast bacilli culture [facility] Acid fast bacilli culture [facility] Acid Fast Bacilli Culture Acid F ast Bacilli Culture [facility] Acid fast bacilli culture [facility] Acid Fast Bacilli Smear Acid Fas t Bacilli Smear [facility] Ambulatory ECG [facility] Anaerobic Culture Anaerobic Culture [facility] Bacteria identified in Unspecified specimen by Anaerobe culture [facility] BLOOD TB SCREEN, INCUBATED BLOOD TB SCREEN, INCUBATED Lab Routine High risk medication use 02/27/2025 11:22 AM EDT [facility] Work Phone: Fungal Culture Fungal Culture [facility] Fungal Smear Fungal Smear [facility] Fungus identified in Unspecified specimen by Fungus stain [facility] Microbial culture, routine Wound Culture [facility] Mycobacterium sp identified in Unspecified specimen by Organism specific culture [facility] Mycobacterium sp identified in Unspecified specimen by Organism specific culture [facility] Mycobacterium sp identified in Unspecified specimen by Organism specific culture [facility] Natriuretic peptide. B prohormone N-Terminal [Mass/volume] in Serum or Plasma [facility] NM Heart Views W str ess and W radionuclide IV [facility] Patient Education ED About Arrhy thmias ED Holter Monitor [facility] Work Phone: Patient referral [facility] Work Phone: End: 03-24-2024 Radex spine lumbosacral 2/3 views XR LUMBAR GENERAL 3V AP/LAT/L5-S1 Radiology Routine Low back pain, unspecified back pain laterality, unspecified chronicity, unspecified whether sciatica present 1 Occurrences starting 02/23/2023 until 03/24/2024 [facility] Work Phone: Comment on above: 1 Occurrences starti ng 02/23/2023 until 03/24/2024 End: 03-24-2024 Radiologic examination sacroiliac jnts <3 views XR SACROILIAC JOINTS 2V AP PELVIS/FERGUESON Radiology Routine Low back pain, unspecified back pain laterality, unspecified chronicity, unspecified whether sciatica present 1 Occurrences starting 02/23/2023 until 03/24/2024 [facility] Work Phone: Comment on above: 1 Occurrences starti ng 02/23/2023 until 03/24/2024 US Heart [facility] End: 11-15-2022 XR KNEE INJURY 4V AP/LAT/OBLS LEFT [facility] Work Phone: Comment on above: 1 Occurrences starti ng 11/15/2022 until 11/15/2022 [facility] Immunizations Immunization Date Immunization Notes Care Provider Fa cility 01-08-2021 Covwi (Moderna) [facility] 12-11-2020 Covid (Moderna) [facility] Payers Date Payer Category Payer Self-pay [id number] 10-06-2024 Unknown [id number] 09-22-2022 Medicare (Managed Care) [id number] 08-05-2020 [place] [id number] 08/05/2020-Present [phone] [address] [place] [address] Medicaid [id number] 08-05-2020 Medicaid [id number] 08-05-2020 Medicaid [id number] 10-06-2019 Medicare [id number] 10-06-2019 Medicare HUMANA MEDICARE HUMANA GOLD PLUS [id number] 10/06/2019-Present [phone] [address] [address] [place] [address] [facility] [id number] 04-05-2017 Unknown [id number] Medicare [id number] Private Health Insurance [id number] Unknown [id number] Unknown [id number] Unknown [id number] 62 Unknown [id number] 62 Unknown [id number] 62 Unknown [id number] 62 Unknown [id number] 62 Unknown [id number] 62 Unknown [id number] 62 Unknown [id number] 62 Unknown [id number] 62 Social History Date Type Detail Facility Start: 12-03-2021 End: 03-24-2023 Tobacco smoking status [facility] Unknown if ever smoked [facility] Start: 11-17-2020 Non-smoker [facility] Start: 1960 Sex Assigned At Female W [facility] Start: 05-12-2016 End: 10-24-2024 Tobacco smoking status KYIS Ex-smoker [facility] End: 04-22-2016 History of tobacco use Current smoker [facility] End: 04-22-2016 History of tobacco use Cigarette Smoker [facility] Start: 05-12-2016 End: 12-05-2024 Cigarettes smoked current (pack per day) - Reported 0.5 [facility] Start: 05-12-2016 End: 10-24-2024 Tobacco use and exposure Smokeless tobacco non-user [facility] Start: 11-16-2021 End: 10-24-2024 Alcohol intake Current drinker of alcohol (finding) [facility] Start: 1960 Sex Assigned At Not on file [facility] Start: 07-02-2022 End: 07-12-2022 Exposure to SARS-CoV-2 (event) Not sure [facility] Start: 05-19-2018 None [facility] Start: 05-19-2018 With Family [facility] Start: 11-15-2022 End: 12-05-2024 Tobacco use panel [facility] Start: 08-06-2012 National Score (1-100), lower number is lower risk 75 [facility] Start: 11-02-2024 Gender identity Identifies as female gender (finding) [facility] Start: 11-02-2024 Sexual orientation Heterosexual (osvaldo stone) [facility] NEGATED: Highlighted row [facility] Medical Equipment Procedure Code Equipment Code Equipment Origin al Text Equipment Identifier Dates DOUGH,CEMENT 6191-1-010 FDA Start: 12-01-2020 DOUGH,CEMENT 6191-1-010 FDA Start: 12-01-2020 TRIATH ASYMMETRI C PATELLA FDA Start: 12-01-2020 TRIATH CRUCIATE RETAIN FEMORAL FDA Start: 12-01-2020 TRIATH TIBIAL BASEPLATE FDA Start: 12-01-2020 TRIATH TIBIAL BE ARING INSERT FDA Start: 12-01-2020 DOUGH,CEMENT 6191-1-010 FDA Start: 06-26-2021 DOUGH,CEMENT 6191-1-010 FDA Start: 06-26-2021 ([id number]) Uncoated knee fe mur prosthesis, metallic ()[id number] FDA Start: 06-26-2021 ([id number]) Uncoated knee ti hannah prosthesis, metallic ()[id number] FDA Start: 06-26-2021 ([id number]) Polyethylene pat nita prosthesis ()[id number] FDA Start: 06-26-2021 ([id number]) Tibial insert ()[id number] FDA Start: 06-26-2021 DOUGH,CEMENT 6191-1-010 FDA Start: 12-01-2020 DOUGH,CEMENT 6191-1-010 FDA Start: 12-01-2020 TRIATH ASYMMETRI C PATELLA FDA Start: 12-01-2020 TRIATH CRUCIATE RETAIN FEMORAL FDA Start: 12-01-2020 TRIATH TIBIAL BASEPLATE FDA Start: 12-01-2020 TRIATH TIBIAL BE ARING INSERT FDA Start: 12-01-2020 DOUGH,CEMENT 6191-1-010 FDA Start: 06-26-2021 DOUGH,CEMENT 6191-1-010 FDA Start: 06-26-2021 DOUGH,CEMENT 6191-1-010 FDA Start: 12-01-2020 DOUGH,CEMENT 6191-1-010 FDA Start: 12-01-2020 TRIATH ASYMMETRI C PATELLA FDA Start: 12-01-2020 TRIATH CRUCIATE RETAIN FEMORAL FDA Start: 12-01-2020 TRIATH TIBIAL BASEPLATE FDA Start: 12-01-2020 TRIATH TIBIAL BE ARING INSERT FDA Start: 12-01-2020 DOUGH,CEMENT 6191-1-010 FDA Start: 06-26-2021 DOUGH,CEMENT 6191-1-010 FDA Start: 06-26-2021 DOUGH,CEMENT 6191-1-010 FDA Start: 12-01-2020 DOUGH,CEMENT 6191-1-010 FDA Start: 12-01-2020 TRIATH ASYMMETRI C PATELLA FDA Start: 12-01-2020 TRIATH CRUCIATE RETAIN FEMORAL FDA Start: 12-01-2020 TRIATH TIBIAL BASEPLATE FDA Start: 12-01-2020 TRIATH TIBIAL BE ARING INSERT FDA Start: 12-01-2020 DOUGH,CEMENT 6191-1-010 FDA Start: 06-26-2021 DOUGH,CEMENT 6191-1-010 FDA Start: 06-26-2021 DOUGH,CEMENT 6191-1-010 FDA Start: 12-01-2020 DOUGH,CEMENT 6191-1-010 FDA Start: 12-01-2020 TRIATH ASYMMETRI C PATELLA FDA Start: 12-01-2020 TRIATH CRUCIATE RETAIN FEMORAL FDA Start: 12-01-2020 TRIATH TIBIAL BASEPLATE FDA Start: 12-01-2020 TRIATH TIBIAL BE ARING INSERT FDA Start: 12-01-2020 DOUGH,CEMENT 6191-1-010 FDA Start: 06-26-2021 DOUGH,CEMENT 6191-1-010 FDA Start: 06-26-2021 Orthopaedic ceme nt, non-antimicrobial ()[id number] FDA Start: 12-29-2022 Orthopaedic ceme nt, non-antimicrobial ()[id number] FDA Start: 12-29-2022 Uncoated knee fe mur prosthesis, metallic ()[id number] FDA Start: 12-29-2022 Uncoated knee ti hannah prosthesis, polyethylene ()[id number] FDA Start: 12-29-2022 DOUGH,CEMENT 6191-1-010 FDA Start: 12-01-2020 DOUGH,CEMENT 6191-1-010 FDA Start: 12-01-2020 TRIATH ASYMMETRI C PATELLA FDA Start: 12-01-2020 TRIATH CRUCIATE RETAIN FEMORAL FDA Start: 12-01-2020 TRIATH TIBIAL BASEPLATE FDA Start: 12-01-2020 TRIATH TIBIAL BE ARING INSERT FDA Start: 12-01-2020 DOUGH,CEMENT 6191-1-010 FDA Start: 06-26-2021 DOUGH,CEMENT 6191-1-010 FDA Start: 06-26-2021 DOUGH,CEMENT 6191-1-010 FDA Start: 12-01-2020 DOUGH,CEMENT 6191-1-010 FDA Start: 12-01-2020 TRIATH ASYMMETRI C PATELLA FDA Start: 12-01-2020 TRIATH CRUCIATE RETAIN FEMORAL FDA Start: 12-01-2020 TRIATH TIBIAL BASEPLATE FDA Start: 12-01-2020 TRIATH TIBIAL BE ARING INSERT FDA Start: 12-01-2020 DOUGH,CEMENT 6191-1-010 FDA Start: 06-26-2021 DOUGH,CEMENT 6191-1-010 FDA Start: 06-26-2021 DOUGH,CEMENT 6191-1-010 FDA Start: 12-01-2020 DOUGH,CEMENT 6191-1-010 FDA Start: 12-01-2020 TRIATH ASYMMETRI C PATELLA FDA Start: 12-01-2020 TRIATH CRUCIATE RETAIN FEMORAL FDA Start: 12-01-2020 TRIATH TIBIAL BASEPLATE FDA Start: 12-01-2020 TRIATH TIBIAL BE ARING INSERT FDA Start: 12-01-2020 DOUGH,CEMENT 6191-1-010 FDA Start: 06-26-2021 DOUGH,CEMENT 6191-1-010 FDA Start: 06-26-2021 DOUGH,CEMENT 6191-1-010 FDA Start: 12-01-2020 DOUGH,CEMENT 6191-1-010 FDA Start: 12-01-2020 TRIATH ASYMMETRI C PATELLA FDA Start: 12-01-2020 TRIATH CRUCIATE RETAIN FEMORAL FDA Start: 12-01-2020 TRIATH TIBIAL BASEPLATE FDA Start: 12-01-2020 TRIATH TIBIAL BE ARING INSERT FDA Start: 12-01-2020 DOUGH,CEMENT 6191-1-010 FDA Start: 06-26-2021 DOUGH,CEMENT 6191-1-010 FDA Start: 06-26-2021 bone plug FDA Start: 04-06-2023 Uncoated knee ti hannah prosthesis, metallic ()[id number] FDA Start: 04-06-2023 ([id number]) Knee femur stem prosthesis ()[id number] [id number] FDA Start: 04-06-2023 ([id number]) Knee femur stem prosthesis ()[id number] FDA Start: 04-06-2023 Orthopaedic ceme nt, antimicrobial ()[id number] [id number] FDA Start: 04-06-2023 Orthopaedic ceme nt, antimicrobial ()[id number] [id number] FDA Start: 04-06-2023 Tibial insert ()[id number] [id number] FDA Start: 04-06-2023 bone plug FDA Start: 04-06-2023 ([id number]) Knee arthroplast y wedge ()[id number] [id number] FDA Start: 04-06-2023 ([id number]) Metal-backed pat nita prosthesis ()[id number] [id number] FDA Start: 04-06-2023 Knee arthroplast y wedge ()[id number] [id number] FDA Start: 04-06-2023 Knee arthroplast y wedge ()[id number] [id number] FDA Start: 04-06-2023 Knee arthroplast y wedge ()[id number] [id number] FDA Start: 04-06-2023 Uncoated knee fe mur prosthesis, metallic ()[id number] [id number] FDA Start: 04-06-2023 DOUGH,CEMENT 6191-1-010 FDA Start: 12-01-2020 DOUGH,CEMENT 6191-1-010 FDA Start: 12-01-2020 TRIATH ASYMMETRI C PATELLA FDA Start: 12-01-2020 TRIATH CRUCIATE RETAIN FEMORAL FDA Start: 12-01-2020 TRIATH TIBIAL BASEPLATE FDA Start: 12-01-2020 TRIATH TIBIAL BE ARING INSERT FDA Start: 12-01-2020 DOUGH,CEMENT 6191-1-010 FDA Start: 06-26-2021 DOUGH,CEMENT 6191-1-010 FDA Start: 06-26-2021 bone plug FDA Start: 04-06-2023 bone plug FDA Start: 04-06-2023 DOUGH,CEMENT 6191-1-010 FDA Start: 12-01-2020 DOUGH,CEMENT 6191-1-010 FDA Start: 12-01-2020 TRIATH ASYMMETRI C PATELLA FDA Start: 12-01-2020 TRIATH CRUCIATE RETAIN FEMORAL FDA Start: 12-01-2020 TRIATH TIBIAL BASEPLATE FDA Start: 12-01-2020 TRIATH TIBIAL BE ARING INSERT FDA Start: 12-01-2020 DOUGH,CEMENT 6191-1-010 FDA Start: 06-26-2021 DOUGH,CEMENT 6191-1-010 FDA Start: 06-26-2021 bone plug FDA Start: 04-06-2023 bone plug FDA Start: 04-06-2023 DOUGH,CEMENT 6191-1-010 FDA Start: 12-01-2020 DOUGH,CEMENT 6191-1-010 FDA Start: 12-01-2020 TRIATH ASYMMETRI C PATELLA FDA Start: 12-01-2020 TRIATH CRUCIATE RETAIN FEMORAL FDA Start: 12-01-2020 TRIATH TIBIAL BASEPLATE FDA Start: 12-01-2020 TRIATH TIBIAL BE ARING INSERT FDA Start: 12-01-2020 DOUGH,CEMENT 6191-1-010 FDA Start: 06-26-2021 DOUGH,CEMENT 6191-1-010 FDA Start: 06-26-2021 bone plug FDA Start: 04-06-2023 bone plug FDA Start: 04-06-2023 DOUGH,CEMENT 6191-1-010 FDA Start: 12-01-2020 DOUGH,CEMENT 6191-1-010 FDA Start: 12-01-2020 TRIATH ASYMMETRI C PATELLA FDA Start: 12-01-2020 TRIATH CRUCIATE RETAIN FEMORAL FDA Start: 12-01-2020 TRIATH TIBIAL BASEPLATE FDA Start: 12-01-2020 TRIATH TIBIAL BE ARING INSERT FDA Start: 12-01-2020 DOUGH,CEMENT 6191-1-010 FDA Start: 06-26-2021 DOUGH,CEMENT 6191-1-010 FDA Start: 06-26-2021 bone plug FDA Start: 04-06-2023 bone plug FDA Start: 04-06-2023 DOUGH,CEMENT 6191-1-010 FDA Start: 12-01-2020 DOUGH,CEMENT 6191-1-010 FDA Start: 12-01-2020 TRIATH ASYMMETRI C PATELLA FDA Start: 12-01-2020 TRIATH CRUCIATE RETAIN FEMORAL FDA Start: 12-01-2020 TRIATH TIBIAL BASEPLATE FDA Start: 12-01-2020 TRIATH TIBIAL BE ARING INSERT FDA Start: 12-01-2020 DOUGH,CEMENT 6191-1-010 FDA Start: 06-26-2021 DOUGH,CEMENT 6191-1-010 FDA Start: 06-26-2021 bone plug FDA Start: 04-06-2023 bone plug FDA Start: 04-06-2023 DOUGH,CEMENT 6191-1-010 FDA Start: 12-01-2020 DOUGH,CEMENT 6191-1-010 FDA Start: 12-01-2020 TRIATH ASYMMETRI C PATELLA FDA Start: 12-01-2020 TRIATH CRUCIATE RETAIN FEMORAL FDA Start: 12-01-2020 TRIATH TIBIAL BASEPLATE FDA Start: 12-01-2020 TRIATH TIBIAL BE ARING INSERT FDA Start: 12-01-2020 DOUGH,CEMENT 6191-1-010 FDA Start: 06-26-2021 DOUGH,CEMENT 6191-1-010 FDA Start: 06-26-2021 bone plug FDA Start: 04-06-2023 bone plug FDA Start: 04-06-2023 DOUGH,CEMENT 6191-1-010 FDA Start: 12-01-2020 DOUGH,CEMENT 6191-1-010 FDA Start: 12-01-2020 TRIATH ASYMMETRI C PATELLA FDA Start: 12-01-2020 TRIATH CRUCIATE RETAIN FEMORAL FDA Start: 12-01-2020 TRIATH TIBIAL BASEPLATE FDA Start: 12-01-2020 TRIATH TIBIAL BE ARING INSERT FDA Start: 12-01-2020 DOUGH,CEMENT 6191-1-010 FDA Start: 06-26-2021 DOUGH,CEMENT 6191-1-010 FDA Start: 06-26-2021 bone plug FDA Start: 04-06-2023 bone plug FDA Start: 04-06-2023 DOUGH,CEMENT 6191-1-010 FDA Start: 12-01-2020 DOUGH,CEMENT 6191-1-010 FDA Start: 12-01-2020 TRIATH ASYMMETRI C PATELLA FDA Start: 12-01-2020 TRIATH CRUCIATE RETAIN FEMORAL FDA Start: 12-01-2020 TRIATH TIBIAL BASEPLATE FDA Start: 12-01-2020 TRIATH TIBIAL BE ARING INSERT FDA Start: 12-01-2020 DOUGH,CEMENT 6191-1-010 FDA Start: 06-26-2021 DOUGH,CEMENT 6191-1-010 FDA Start: 06-26-2021 bone plug FDA Start: 04-06-2023 bone plug FDA Start: 04-06-2023 DOUGH,CEMENT 6191-1-010 FDA Start: 12-01-2020 DOUGH,CEMENT 6191-1-010 FDA Start: 12-01-2020 TRIATH ASYMMETRI C PATELLA FDA Start: 12-01-2020 TRIATH CRUCIATE RETAIN FEMORAL FDA Start: 12-01-2020 TRIATH TIBIAL BASEPLATE FDA Start: 12-01-2020 TRIATH TIBIAL BE ARING INSERT FDA Start: 12-01-2020 DOUGH,CEMENT 6191-1-010 FDA Start: 06-26-2021 DOUGH,CEMENT 6191-1-010 FDA Start: 06-26-2021 bone plug FDA Start: 04-06-2023 bone plug FDA Start: 04-06-2023 DOUGH,CEMENT 6191-1-010 FDA Start: 12-01-2020 DOUGH,CEMENT 6191-1-010 FDA Start: 12-01-2020 TRIATH ASYMMETRI C PATELLA FDA Start: 12-01-2020 TRIATH CRUCIATE RETAIN FEMORAL FDA Start: 12-01-2020 TRIATH TIBIAL BASEPLATE FDA Start: 12-01-2020 TRIATH TIBIAL BE ARING INSERT FDA Start: 12-01-2020 DOUGH,CEMENT 6191-1-010 FDA Start: 06-26-2021 DOUGH,CEMENT 6191-1-010 FDA Start: 06-26-2021 bone plug FDA Start: 04-06-2023 bone plug FDA Start: 04-06-2023 Goals Date Patient Goal Desired Activity /State Functional Status Date Assessment Result Facility 04-11-2023 Functional status Ambulates [facility] Work Phone: 02-10-2023 Functional status Ambulates;Up ad michelle [facility] Work Phone: 12-31-2022 Functional status Activity Abili ty With Assist of 1 [facility] Work Phone: 12-31-2022 Functional status Ambulates [facility] Work Phone: Mental Status Date Assessment Result Facility 04-11-2023 Cognitive function Voice/Name [facility] Work Phone: 02-10-2023 Cognitive function Voice/Name [facility] Work Phone: 02-07-2023 Cognitive function Appropriate;Bensophia maria luisa [facility] Work Phone: 12-31-2022 Cognitive function Voice/Name [facility] Work Phone: Clinical Notes 04-26-2016 to 05-08-2025 Patient InstructionsShelly Su MD - 05/08/2025 12:43 PM EDTTelephone Encounter - Laura Nelson LPN - 03/14/2025 5:04 PM EDTTelephone Encounter - Laura Neslon LPN - 03/14/2025 5:04 PM EDT Note Date & Type Note Facility 05-08-2025 Instructions Shelly Su MD - 05/08/2025 2:00 PM EDT We discussed your diarrhea and abdominal bloating: - Stop taking leflunomide (Areva) for at least 7-10 days to see if your symptoms improve. - If your symptoms improve after stopping leflunomide, we will not restart it. - If your symptoms do not improve, this may be due to a viral infection or another cause. In that case, please contact your primary care doctor or go to the hospital if your symptoms worsen or become severe. - If your stomach pain becomes more severe, you may need to seek care at the hospital. We discussed your recent rituximab infusion: - Rituximab is a more powerful treatment than leflunomide, so we will give it more time to work. - I will see you in the office in 2-3 months to evaluate your joints and assess how the medication is helping. My office will call you to schedule this appointment. We discussed your need for blood work: - I will send you blood test orders by mail. You can complete the blood work at a location close to your home, such as the [facility]. - You can complete the blood work with or without taking leflunomide, as it will not affect the results. We discussed next steps for your care: - If your symptoms do not improve in the next few days, please contact your primary care doctor for further evaluation. - If you are unable to see your primary care doctor and your symptoms persist or worsen, you may need to go to the hospital. - If you have access to a fleet service manager through your insurance, you may also consider consulting them for further evaluation of your gastrointestinal symptoms. I will see you in the office in 2-3 months to follow up on your progress. My office will contact you to schedule this appointment. documented in this encounter [facility] 05-08-2025 Note HNO ID: [id number] Author: SHELLY SU MD Service: ? Author Type: Physician Type: Progress Notes Filed: 05/08/2025 14:01 Note Text: I have communicated my name and active licensure. The patient's identity and physical location were verified at the time of this visit. Either the patient or their legal automotive sales representative has been informed of the risks and benefits of -- and alternatives to -- treatment through a remote evaluation and consents to proceed with the evaluation remotely. Subjective Francie Moreno is a 65 year old female. Francie Moreno is a 65-year-old female with a history of RA, presenting with diarrhea and abdominal pain. Francie reports a 1.5 week history of diarrhea and abdominal pain. She describes the diarrhea as severe, with liquid stools occurring during the night. She notes that her bowel movements have always been soft, but now they are entirely liquid. She experiences frequent urination every 15-20 minutes. She also reports significant abdominal bloating, stating she feels as if she is 6 months , and describes her abdomen as painful. Francie has been taking leflunomide 20 mg daily for RA, which was increased from 10 mg in February. She previously experienced gastric issues in February, which improved after temporarily discontinuing leflunomide for 1 week. She has also started rituximab infusions. Francie has been trying to manage her diet to avoid exacerbating symptoms but feels confined to her home due to the unpredictability of her bowel movements. She attempted to see her PCP for evaluation but left due to an anxiety attack. 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 She denies any recent changes in medications other than the increase in leflunomide dosage. Francie reports worsening pain and stiffness since July of last year, affecting multiple areas including her knees, shoulders, wrists, and ankles. She describes the pain as diffuse, stating, I hurt everywhere, and notes significant stiffness in her arms, [...] body pain might be related to fibromyalgia. Francie has a history of knee surgery complications, [...] like to be off of it completely. Alan is unable to walk when she is of prednisone. Hr last visit with sole assessor was in . She also has BMD, x rays, blood work in apr. She was also presribed SSZ which did not help. Had steroid injection. Leflunamide did not hlp RA involved knees and hands. At present she reports swelling of knees. On prednisone She also has fibromyalgia and reports sharp pain with every step. tail bone pain H/o [place] in 2016. episodes of dizziness and was on Holter monitor. Poor historian. She will be seeing ortho next week for ankle injury. Family history of autoimmune di (more content not included)... [facility] 05-08-2025 History of Present illness Narrative I have communicated my name and active licensure. The patient's identity and physical location were verified at the time of this visit. Either the patient or their legal automotive sales representative has been informed of the risks and benefits of -- and alternatives to -- treatment through a remote evaluation and consents to proceed with the evaluation remotely. Subjective Francie Moreno is a 65 year old female. Francie Moreno is a 65-year-old female with a history of RA, presenting with diarrhea and abdominal pain. Francie reports a 1.5 week history of diarrhea and abdominal pain. She describes the diarrhea as severe, with liquid stools occurring during the night. She notes that her bowel movements have always been soft, but now they are entirely liquid. She experiences frequent urination every 15-20 minutes. She also reports significant abdominal bloating, stating she feels as if she is 6 months , and describes her abdomen as painful. Francie has been taking leflunomide 20 mg daily for RA, which was increased from 10 mg in February. She previously experienced gastric issues in February, which improved after temporarily discontinuing leflunomide for 1 week. She has also started rituximab infusions. Francie has been trying to manage her diet to avoid exacerbating symptoms but feels confined to her home due to the unpredictability of her bowel movements. She attempted to see her PCP for evaluation but left due to an anxiety attack. 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 She denies any recent changes in medications other than the increase in leflunomide dosage. Francie reports worsening pain and stiffness since July of last year, affecting multiple areas including her knees, shoulders, wrists, and ankles. She describes the pain as diffuse, stating, I hurt everywhere, and notes significant stiffness in her arms, [...] body pain might be related to fibromyalgia. Francie has a history of knee surgery complications, [...] is of prednisone. Hr last visit with sole assessor was in . She also has BMD, x rays, blood work in apr. She was also presribed SSZ which did not help. Had steroid injection. Leflunamide did not hlp RA involved knees and hands. At present she reports swelling of knees. On prednisone She also has fibromyalgia and reports sharp pain with every step. tail bone pain H/o [place] in 2016. episodes of dizziness and was [...] D deficiency (E55.9) Visit was conducted via [employer] Provider Location: [facility] Patient Location: Patient Home or Place of Residence [facility] on 05/08/25 COMPLETE BLOOD COUNT AND DIFFERENTIAL COMPREHENSIVE METABOLIC PANEL C-REACTIVE PROTEIN SEDIMENTATION RATE, WESTERGREN VITAMIN D 25 HYDROXY URINALYSIS (WITH MICROSCOPIC) WITH CULTURE IF INDICATED No orders of the defined types were placed in this encounter. Recording using [employer] software for draft documentation of the visit was discussed with the patient/authorized automotive sales representative; all questions welcomed and answered. Patient/authorized automotive sales representative agreed to proceed documented in this encounter [facility] 03-14-2025 Telephone encounter Note Pharmacy requesting the following refill. Pharmacy comment: REQUEST FOR 90 DAYS PRESCRIPTION. Requested Prescriptions Pending Prescriptions Disp Refills tiZANidine (ZANAFLEX) 4 mg tablet [Pharmacy Med Name: TIZANIDINE HCL 4 MG TABLET] 270 tablet 1 Sig: TAKE 1 TABLET BY MOUTH EVERY 8 HOURS NEEDED. Patient last appointment: 02/18/2025 Next Appointment: 04/24/2025 Patient Phone numbers: [phone] (home) Request is for script(s) to be escript to pharmacy. [facility]/pharmacy #[id number] [place] [address] - [address] [facility]. - [phone] [facility] [phone] Laura Nelson LPN [facility] 03-14-2025 Miscellaneous Notes Pharmacy requesting the following refill. Pharmacy comment: REQUEST FOR 90 DAYS PRESCRIPTION. Requested Prescriptions Pending Prescriptions Disp Refills tiZANidine (ZANAFLEX) 4 mg tablet [Pharmacy Med Name: TIZANIDINE HCL 4 MG TABLET] 270 tablet 1 Sig: TAKE 1 TABLET BY MOUTH EVERY 8 HOURS NEEDED. Patient last appointment: 02/18/2025 Next Appointment: 04/24/2025 Patient Phone numbers: [phone] (home) Request is for script(s) to be escript to pharmacy. [facility]/pharmacy #[id number] [place] [address] [address] [facility]. - [phone] [facility] [phone] Laura Nelson LPN documented in this encounter [facility] 03-06-2025 Telephone encounter Note Patient states, It went good. It took a little longer than normal because of the precautions. It went great. Patient states she may have gained weight on the prednisone. Patient states she will start 5 mg of prednisone taper tomorrow and then she will done. Patient wanted to remind you that you increased her Arava from one tablet daily to two tablets daily. See telephone message on 02/25/2025. Laura Nelson LPN [facility] 03-06-2025 Telephone encounter Note ----- Message from Shelly Su MD sent at 03/05/2025 1:54 PM EDT ----- How did her infusion go? [facility] 03-06-2025 Miscellaneous Notes Patient states, It went good. It took a little longer than normal because of the precautions. It went great. Patient states she may have gained weight on the prednisone. Patient states she will start 5 mg of prednisone taper tomorrow and then she will done. Patient wanted to remind you that you increased her Arava from one tablet daily to two tablets daily. See telephone message on 02/25/2025. Laura Nelson LPN ----- Message from Shelly Su MD sent at 03/05/2025 1:54 PM EDT ----- How did her infusion go? documented in this encounter [facility] 02-27-2025 Note HNO ID: [id number] Author: VIOLETTA JOSEPH RN Service: ? Author Type: Registered Nurse Type: Progress Notes Filed: 02/27/2025 13:20 Note Text: see infusion encounter [facility] 02-27-2025 History of Present illness Narrative see infusion encounter documented in this encounter [facility] 02-26-2025 Telephone encounter Note Updated treatments to 1st floor Aaliyah Watters [facility] 02-26-2025 Miscellaneous Notes Updated treatments to 1st floor Aaliyah Watters Pt is scheduled upstairs on 02/27 for Rituximab. Please reschedule to main chemo floor for tomorrow's treatment and any future treatments. Rituximab cannot be given on 2nd floor. Thank you! documented in this encounter [facility] 02-26-2025 Telephone encounter Note Pt is scheduled upstairs on 02/27 for Rituximab. Please reschedule to main chemo floor for tomorrow's treatment and any future treatments. Rituximab cannot be given on 2nd floor. Thank you! [facility] 02-25-2025 Telephone encounter Note Patient is aware and understand. [facility] 02-25-2025 Miscellaneous Notes Patient is aware and understand. Stay on 20 Patient state was off leftunomide for one week then increase leflunomide to 20 mg. She want to know to stay on 20 mg or go back to 10 mg of lefunomide? yes Patient called left message want to know,if she do the infusion and take leftunomide? documented in this encounter [facility] 02-25-2025 Telephone encounter Note Stay on 20 [facility] 02-25-2025 Telephone encounter Note Patient state was off leftunomide for one week then increase leflunomide to 20 mg. She want to know to stay on 20 mg or go back to 10 mg of lefunomide? [facility] 02-25-2025 Telephone encounter Note yes [facility] 02-25-2025 Telephone encounter Note Patient called left message want to know,if she do the infusion and take leftunomide? [facility] 02-22-2025 Telephone encounter Note Called patient to let her know new order was placed and she expressed understanding on the need for a redraw. 02/22/25 Samira Mistry [facility] 02-22-2025 Miscellaneous Notes Called patient to let her know new order was placed and she expressed understanding on the need for a redraw. 02/22/25 Samira Mistry Summary: TB screen cancelled Lab called, TB screen was cancelled due to tubes being overfilled. New order for TB screen needed for redraw. I will notify patient once order is placed Samira Mistry documented in this encounter [facility] 02-21-2025 Telephone encounter Note Summary: TB screen cancelled Lab called, TB screen was cancelled due to tubes being overfilled. New order for TB screen needed for redraw. I will notify patient once order is placed Samira Mistry [facility] 02-20-2025 Note HNO ID: [id number] Author: ?, ?, ? Service: ? Author Type: ? Type: Progress Notes Filed: 02/20/2025 13:29 Note Text: She is scheduled in [place] on 02/27 and 03/07. I called and scheduled it with them on Tuesday. Samira Mistry [facility] 02-19-2025 Telephone encounter Note Spoke with patient and scheduled. Aaliyah Watters [facility] 02-19-2025 Miscellaneous Notes Spoke with patient and scheduled. Aaliyah Watters Routed to [facility] in error. Patient to have rituximab at [place] location. Dr. Su ordering. Please review and advise. Okay to call patient, she is expecting to hear from us. documented in this encounter [facility] 02-18-2025 Telephone encounter Note Routed to [facility] in error. [facility] Work Phone: 02-18-2025 Note Addended by: SHELLY SU on: 02/18/2025 01:44 PM Modules accepted: Orders [facility] 02-18-2025 Miscellaneous Notes Addended by: SHELLY SU on: 02/18/2025 01:44 PM Modules accepted: Orders documented in this encounter [facility] 02-18-2025 Telephone encounter Note Patient to have rituximab at [place] location. Dr. Su ordering. Please review and advise. Okay to call patient, she is expecting to hear from us. [facility] 02-18-2025 Instructions Shelly Su MD - 02/18/2025 12:27 PM EDT We discussed your rheumatoid arthritis (RA): - [...] needed) have been sent to your [facility] pharmacy in [place]. Please let us know if your symptoms worsen or if you have any concerns. documented in this encounter [facility] 02-18-2025 Note HNO ID: [id number] Author: SHELLY SU MD Service: ? Author Type: Physician Type: Progress Notes Filed: 02/18/2025 12:54 Note Text: RHEUMATOLOGY PROGRESS NOTE Patient is here for a follow up visit for Francie Moreno is a 65-year-old female with a history of RA, presenting with diffuse pain and stiffness. HPI: Francie reports worsening pain and stiffness since July of last year, affecting multiple areas including her knees, shoulders, wrists, and ankles. She describes the pain as diffuse, stating, I hurt everywhere, and notes significant stiffness in her arms, [...] body pain might be related to fibromyalgia. Francie has a history of knee surgery complications, [...] is of prednisone. Hr last visit with sole assessor was in . She also has BMD, x rays, blood work in apr. She was also presribed SSZ which did not help. Had steroid injection. Leflunamide did not hlp RA involved knees and hands. At present she reports swelling of knees. On prednisone She also has fibromyalgia and reports sharp pain with every step. tail bone pain H/o [place] in 2016. episodes of dizziness and was [...] this visit: Allergies, Past Medical History, Past Surgic (more content not included)... [facility] 02-18-2025 History of Present illness Narrative RHEUMATOLOGY PROGRESS NOTE Patient is here for a follow up visit for Francie Moreno is a 65-year-old female with a history of RA, presenting with diffuse pain and stiffness. HPI: Francie reports worsening pain and stiffness since July of last year, affecting multiple areas including her knees, shoulders, wrists, and ankles. She describes the pain as diffuse, stating, I hurt everywhere, and notes significant stiffness in her arms, [...] body pain might be related to fibromyalgia. Francie has a history of knee surgery complications, [...] is of prednisone. Hr last visit with sole assessor was in . She also has BMD, x rays, blood work in apr. She was also presribed SSZ which did not help. Had steroid injection. Leflunamide did not hlp RA involved knees and hands. At present she reports swelling of knees. On prednisone She also has fibromyalgia and reports sharp pain with every step. tail bone pain H/o [place] in 2016. episodes of dizziness and was [...] fibroadenoma CC PCI CORONARY INTERVENT LAPS ABD PRTM&OMENTUM DX W/WO SPEC BR/WA SPX Laparoscopy lysis [...] left wrist swelling noted - Hands good klystrom tube tester, MCP, PIP, DIP with right index finger [...] patient to complete labs today or in [place]. - Initiate prednisone for temporary relief. - [...] which included preparing to see the patient, [id number] patient care, completing clinical documentation, obtaining and/or reviewing separately obtained history, performing a medically appropriate examination, counseling and educating the patient/family/caregiver, ordering medications, tests, or procedures, independently interpreting results (not separately reported), and communicating results to the patient/family/caregiver. Recording using [employer] software for draft documentation of the visit was discussed with the patient/authorized automotive sales representative; all questions welcomed and answered. Patient/authorized automotive sales representative agreed to proceed documented in this encounter [facility] 02-14-2025 Telephone encounter Note Pharmacy faxed requesting the following refill. Requested Prescriptions Pending Prescriptions Disp Refills leflunomide (ARAVA) 10 mg tablet [Pharmacy Med Name: LEFLUNOMIDE 10 MG TABLET] 90 tablet 0 Sig: TAKE 1 TABLET BY MOUTH EVERY DAY Patient last appointment: 10/24/2024 Next Appointment:02/18/2025 Patient Phone numbers: [phone] (home) Request is for script(s) to be escript to pharmacy. Go Kendall MA [facility] 02-14-2025 Miscellaneous Notes Pharmacy faxed requesting the following refill. Requested Prescriptions Pending Prescriptions Disp Refills leflunomide (ARAVA) 10 mg tablet [Pharmacy Med Name: LEFLUNOMIDE 10 MG TABLET] 90 tablet 0 Sig: TAKE 1 TABLET BY MOUTH EVERY DAY Patient last appointment: 10/24/2024 Next Appointment:02/18/2025 Patient Phone numbers: [phone] (home) Request is for script(s) to be escript to pharmacy. Go Kendall MA documented in this encounter [facility] 02-06-2025 Evaluation note Diagnosis Onset Date Resolution Dyspnea on exertion acute February 06, 2025 2:48pm Essential hypertension chronic February 06, 2025 2:48pm History of coronary artery stent placement April 26, 2016 chronic February 06, 2025 2:48pm Rapid palpitations inactive February 062024 2:48pm Hyperlipidemia deleted February 06, 2025 2:48pm [facility] Work Phone: 1(438) 340-682105-30-[address]charge [address] [facility] Medical Records Department [address] [place] [address] Emergency Department Summary 02/01/25 MR#: [id number] Acct: [id number] Name: FRANCIE MORENO Rep #:[id number] : 1960 64 From: Kirby Pritchett MD PCP: Dr. Henrry Odom MD Status :REG ER Location: ED HPI History of Present Illness Chief Complaint: Shortness of Breath Informant: patient and EMS Narrative Narrative: Patient states that since 3 or 4 this a.m. she has been feeling lightheaded, with episodes like sheis going to pass out and her heart racing. Does not feellike it is skipping. Initially denies dyspnea and chest discomfort but later tells me she had this sensation in her upper abdomen and chest like she has to burp and like there is squeezing discomfort. She had a coronary stent in the past. She takes aspirin every day but no other antiplatelet or anticoagulants. She denies any pleuritic chest discomfort. She denies a history of DVT or PE recent leg pain or swelling, [facility] [place], denies hospitalization or outpatient surgery recently. [facility] Medical History Ambulates with cane Anemia Marijuana use ANN (obstructive sleep apnea) Rheumatoid arthritis Allergic rhinitis Gastroesophageal reflux disease Vitamin D deficiency Debility Septic arthritis Wears glasses Anxiety Depression Uses wheelchair Walker as ambulation aid Arthritis Back pain Chronic headaches Former smoker Shortness of breath on exertion History of pain when walking Cardiology follow-up encounter History of non-ST elevation myocardial infarction (NSTEMI) (04/26/16) Obesity Essential hypertension Atherosclerosis of coronary artery of [place] heart without angina pectoris Osteoarthritis of both knees Fibromyalgia Syncope Home Medications ?Medication ?Instructions ?Recorded ?Last Taken ?Type omeprazole 20 mg capsule,delayed 20 mg PO DAILY GERD 0 03/02/23 02/01/25 History release alendronate 70 mg tablet 70 mg PO MEJIA 02/01/2501/27/ 5 History aspirin 81 mg tablet,delayed 81 mg PO DAILY 02/01/25 0 02/01/25 History release (Adult Low Dose Aspirin) biotin 1 mg capsule 1 mg PO DAILY 02/01/2502/01 History cholecalciferol (vitamin D3) 50 50 mcg PO DAILY 02/01/25 History mcg (2,000 unit) capsule fexofenadine 60 mg-pseudoephedrine 1 tab PO DAILY PRN allergy symptoms 02/01/25 Unknown History ER 120 mg tablet,ext.release,12 hr (Allie-D 12 Hour) leflunomide 10 mg tablet 10 mg PO DAILY 02/01/2501/04 History lisinopril 20 mg tablet 20 mg PO DAILY 02/01/25 05 History mecobalamin (vitamin B12) 1,000 1,000 mcg PO DAILY 02/01/25 History mcg lozenges Allergy/AdvReac Type Severity Reaction Status Date / Time No Known Allergies Allergy Verified 02/01/25 11:10 Family History Mother Hypertension CVA (cerebral vascular accident) Sister Cancer Father Heart disease Surgical History History of cardiac catheterization History of coronary artery stent placement (04/26/16) History of total left knee replacement (2020) History of total right knee replacement Hx of colonoscopy Status post incision and drainage Social History household members: children Smoking Status: Former smoker how long ago did patient quit smokin years ago alcohol intake: current alcohol intake frequency: holidays/special occasions only substance use type: does not use caffeine: Yes Type: carbonated beverages and coffee ROS ROS ED Constitutional Constitutional ED: Denies chills or fever(s) Eyes Eyes: Denies change in vision or diplopia ENT ENT ED: Denies rhinorrhea or sore throat Cardiovascular Cardiovascular: Reports chest pain, lightheadedness and racing heartbeat; Deniesradiating jaw, neckor arm pain or syncope Respiratory/Chest Respiratory/Chest: Denies cough or dyspnea Gastrointestinal Gastrointestinal: Denies abdominal pain, diarrhea, nausea or vomiting Genitourinary Genitourinary ED: Denies dysuria or hematuria Musculoskeletal Musculoskeletal: Denies back pain or neck pain Integumentary Denies abscess or rash Neurologic Neurologic: Reports paresthesias; Denies headache(s) or weakness Psychiatric Psychiatric: Denies suicidal thoughts EXAM Physical Exam Const Vital Signs: 02/01/25 11:08 02/01/25 11:25 02/01/25 12:48 Temperature 98.6 F Temperature Source Oral Pulse Rate 107 H Pulse Rate [Lying] 84 Pulse Rate [Sitting (for 1 minute prior to obtaining)] 94 Pulse Rate [Standing (for 1 minute prior to obtaining)] 100 Respiratory Rate 20 H Blood Pressure 139/92 H Blood Pressure [Lying] 154/81 H Blood Pressure [Sitting (for 1 minute prior to obtaining)] 157/87 H Blood Pressure [Standing (for 1 minute prior to obtaining)] 158/98 H Blood Pressure Mean 107 Blood Pressure Mean [Lying] 105 Blood Pressure Mean [Sitting (for 1 minute prior to obtaining)] 110 Blood Pressure Mean [Standing (for 1 minute prior to obtaining)] 118 Pulse Ox 100 Oxygen Delivery Method Room Air Room Air 02/01/25 13:08 Temperature Temperature Source Pulse Rate 86 Pulse Rate [Lying] Pulse Rate [Sitting (for 1 minute prior to obtaining)] Pulse Rate [Standing (for 1 minute prior to obtaining)] Respiratory Rate 15 Blood Pressure 160/92 H Blood Pressure [Lying] Blood Pressure [Sitting (for 1 minute prior to obtaining)] Blood Pressure [Standing (for 1 minute prior to obtaining)] Blood Pressure Mean 114 Blood Pressure Mean [Lying] Blood Pressure Mean [Sitting (for 1 minute prior to obtaining)] Blood Pressure Mean [Standing (for 1 minute prior to obtaining)] Pulse Ox 95 Oxygen Delivery Method Room Air Positive well nourished and well developed General Appearance ED: well developed and NAD HEENT Reports moist mucous membranes normocephalic and atraumatic Eyes PERRL and EOMs intact bilaterally Neck full ROM and supple Resp normal respiratory effort and clear to auscultation bilaterally Cardio regular rate, regular rhythm and no murmurs Rate: tachycardic GI non-tender and non-distended Auscultation: normoactive bowel sounds Palpation: soft Back/Spine no CVA tenderness General Back: other FROM Extremity normal to inspection General Extremety ED: Negative for edema, pulses abnormal or tenderness General Extremity: Negative for edema or pulses abnormal Neuro oriented x3, CN's II-XII intact bilaterally and no sensory deficits noted Sensorium / Orientation: awake and alert Motor Exam: strength 5/5 throughout Psych Mood & Affect: anxious and tearful Skin no rashes or lesions noted and no wounds Heart Score History: Moderately Suspicious Age: >/= 65 years Risk Factors: >/= 3 Risk Factors or History of CAD Score: 5 MDM MDM MDM Narrative Medical decision making narrative: EMS sent a prehospital EKG that showed no STEMI on my interpretation. Acute coronary syndrome is inthe differential as is PE, orthostasis, GI symptoms/etiology as the patient states she has had a very poor appetite for weeks related to new rheumatoid arthritis medication, and the patient states tricia t she was having tingling all over and seems quite anxious which could be related as well. D-dimer was sent in addition to basic labs and we did obtainedan EKG while we gave the patient aspirin, IV fluids, nitroglycerin. Two-view chest x-ray my interpretation is normal radiology in agreement, and herD-dimer is significantly elevated, whereas the rest of her blood tests includingher troponin are normal. She was sent for CT angiography of the chest to evaluate for PE. I reviewed the images and report which I agree with, it was negative for PE or anything else acute. Orthostatics were negative. Her vital signs have improved since she has been observed here, with her tachycardia resolving. EKG is normal, she has had no dysrhythmias while she was here but certainly she could have been having a dysrhythmia before she was here. We observed her until we can get a second troponin measurement it actually went down, for a negative delta. Patient with a heart rate resting in the low 80s, she is asymptomatic, she is able to walk without feeling lightheaded and definitely feels better and more like herself. I spoke with respiratory, we do have Holter monitors available. I am having them place a 48-hour monitor on her, and she can follow-up with cardiology afterthe weekend. Lab Data Attestation: I reviewed the patient's lab results. Labs: Laboratory Results - last 24 hr 02/01/25 02/01/25 11:13 13:15 WBC 9.3 RBC 4.77 Hgb 12.4 Hct 38.4 MCV 80.5 L MCH 26.0 L MCHC 32.3 RDW Std Deviation 42.4 RDW Coeff of Daphne 14.6 Plt Count 587 H MPV 8.9 Immature Gran % (Auto) 0.800 Neut % (Auto) 72.3 H Lymph % (Auto) 19.8 Toombs % (Auto) 4.9 Eos % (Auto) 1.3 Baso % (Auto) 0.9 Absolute Neuts (auto) 6.8 Absolute Lymphs (auto) 1.85 Nucleated RBC % 0 APTT 28.4 D-Dimer Quant (PE/DVT) 3.14 H* Sodium 138 Potassium 3.2 L Chloride 99 Carbon Dioxide 22.4 Anion Gap 16 H BUN 11 Creatinine 0.70 Estim Creat Clear Calc 68.89 Est GFR (MDRD) Non-Af 95 BUN/Creatinine Ratio 15.4 Glucose 141 H Calcium 10.0 Troponin T High Sens 10 Troponin T Hi Sens 2 Hr 9 Radiography Diagnostic Testing: Clinical Impression(s) from Imaging Studies Chest X-Ray 02/01/25 12:00 IMPRESSION: Hyperinflation. The lungs are clear. Reading Location: [facility] Chest CTA 02/01/25 12:30 IMPRESSION: No evidence of pulmonary embolism. Coronary artery calcifications. Minimal scarring at the left lung base. Reading Location: [facility] Rhythm Strip Rhythm Strip: Sinus Tach Rate: 104 Ectopy: None EKG Initial EKG: Attestation: I personally reviewed and interpreted this EKG as follows: Interpretation: Sinus Rhythm and No Acute Injury Pattern Comments: Nml axis & intervals; nml EKG Discharge Plan Triage Chief Complaint: Shortness of Breath ED Provider: Kirby Pritchett Dx/Rx/DC Orders Clinical Impression: Rapid palpitations, Lightheadedness, Chest pain Instructions: ED About Arrhythmias, ED Holter Monitor Prescriptions: No Action omeprazole 20 mg capsule,delayed release(DR/EC) 20 mg PO DAILY Patient Comments: TAKE 1 CAPSULE BY MOUTH EVERY DAY fexofenadine-pseudoephedrine [Allie-D 12 Hour] 60-120 mg tablet extended release 12 hr 1 tab PO DAILY PRN (Reason: allergy symptoms) leflunomide 10 mg tablet 10 mg PO DAILY aspirin [Adult Low Dose Aspirin] 81 mg tablet,delayed release (DR/EC) 81 mg PO DAILY lisinopril 20 mg tablet 20 mg PO DAILY biotin 1 mg capsule 1 mg PO DAILY cholecalciferol (vitamin D3) 50 mcg (2,000 unit) capsule 50 mcg PO DAILY mecobalamin (vitamin B12) 1,000 mcg lozenge 1,000 mcg PO DAILY Rx Instructions: allow to dissolve in mouth OR may chew lightly before swallowing alendronate 70 mg tablet 70 mg PO MEJIA Primary Care Provider: Henrry Odom Referrals: Henrry Odom MD [Primary Care Provider] - Nathaniel Lieberman MD [Med Staff - Active Staff] - As soon as possible Print Language: Rwandan Disposition Disposition: Home, Self Care What to do if you have Problems For any increased pain, shortness of breath, bleeding, nausea or vomiting, chestpain, or any unexpected problems, contact your Primary Care Provider. Call [facility] ([phone]) or report tothe closest Emergency Room. Call 911 if necessary. 02/01/25 1434 Cosigner Signature (if applicable): CC: Dr. Henrry Odom MD; Dr. Nathaniel Lieberman MD ~ Signed [facility]05-30-2025 Discharge summary Author Kirby Yarely [facility] Note Date/Time February 01, 2025 2:34p m [facility] Medical Records Department [address] [place] [address] Emergency Department Summary 02/01/25 MR#: [id number] Acct: [id number] Name: FRANCIE MORENO Rep #:[id number] : 1960 64 From: Kirby Pritchett MD PCP: Dr. Henrry Odom MD Status :REG ER Location: ED HPI History of Present Illness Chief Complaint: Shortness of Breath Informant: patient and EMS Narrative Narrative: Patient states that since 3 or 4 this a.m. she has been feeling lightheaded, with episodes like she is going to pass out and her heart racing. Does not feellike it is skipping. Initially denies dyspnea and chest discomfort but later tells me she had this sensation in her upper abdomen and chest like she has to burp and like there is squeezing discomfort. She had a coronary stent in the past. She takes aspirin every day but no other antiplatelet or anticoagulants. She denies any pleuritic chest discomfort. She denies a history of DVT or PE recent leg pain or swelling, recent long travel out of the area, denies hospitalization or outpatient surgery recently. [facility] Medical History Ambulates with cane Anemia Marijuana use ANN (obstructive sleep apnea) Rheumatoid arthritis Allergic rhinitis Gastroesophageal reflux disease Vitamin D deficiency Debility Septic arthritis Wears glasses Anxiety Depression Uses wheelchair Walker as ambulation aid Arthritis Back pain Chronic headaches Former smoker Shortness of breath on exertion History of pain when walking Cardiology follow-up encounter History of non-ST elevation myocardial infarction (NSTEMI) (04/26/16) Obesity Essential hypertension Atherosclerosis of coronary artery of [place] heart without angina pectoris Osteoarthritis of both knees Fibromyalgia Syncope Home Medications ?Medication ?Instructions ?Recorded ?Last Taken ?Type omeprazole 20 mg capsule,delayed 20 mg PO DAILY GERD 0 03/02/23 02/01/25 History release alendronate 70 mg tablet 70 mg PO MEJIA 02/01/2501/27/ 5 History aspirin 81 mg tablet,delayed 81 mg PO DAILY 02/01/25 0 02/01/25 History release (Adult Low Dose Aspirin) biotin 1 mg capsule 1 mg PO DAILY 02/01/2502/01 History cholecalciferol (vitamin D3) 50 50 mcg PO DAILY 02/01/25 History mcg (2,000 unit) capsule fexofenadine 60 mg-pseudoephedrine 1 tab PO DAILY PRN allergy symptoms 02/01/25 Unknown History ER 120 mg tablet,ext.release,12 hr (Allie-D 12 Hour) leflunomide 10 mg tablet 10 mg PO DAILY 02/01/2501/04 History lisinopril 20 mg tablet 20 mg PO DAILY 02/01/25 05/ History mecobalamin (vitamin B12) 1,000 1,000 mcg PO DAILY 02/01/25 History mcg lozenges Allergy/AdvReac Type Severity Reaction Status Date / Time No Known Allergies Allergy Verified 02/01/25 11:10 Family History Mother Hypertension CVA (cerebral vascular accident) Sister Cancer Father Heart disease Surgical History History of cardiac catheterization History of coronary artery stent placement (04/26/16) History of total left knee replacement (2020) History of total right knee replacement Hx of colonoscopy Status post incision and drainage Social History household members: children Smoking Status: Former smoker how long ago did patient quit smokin years ago alcohol intake: current alcohol intake frequency: holidays/special occasions only substance use type: does not use caffeine: Yes Type: carbonated beverages and coffee ROS ROS ED Constitutional Constitutional ED: Denies chills or fever(s) Eyes Eyes: Denies change in vision or diplopia ENT ENT ED: Denies rhinorrhea or sore throat Cardiovascular Cardiovascular: Reports chest pain, lightheadedness and racing heartbeat; Deniesradiating jaw, neck or arm pain or syncope Respiratory/Chest Respiratory/Chest: Denies cough or dyspnea Gastrointestinal Gastrointestinal: Denies abdominal pain, diarrhea, nausea or vomiting Genitourinary Genitourinary ED: Denies dysuria or hematuria Musculoskeletal Musculoskeletal: Denies back pain or neck pain Integumentary Denies abscess or rash Neurologic Neurologic: Reports paresthesias; Denies headache(s) or weakness Psychiatric Psychiatric: Denies suicidal thoughts EXAM Physical Exam Const Vital Signs: 02/01/25 11:08 02/01/25 11:25 02/01/25 12:48 Temperature 98.6 F Temperature Source Oral Pulse Rate 107 H Pulse Rate [Lying] 84 Pulse Rate [Sitting (for 1 minute prior to obtaining)] 94 Pulse Rate [Standing (for 1 minute prior to obtaining)] 100 Respiratory Rate 20 H Blood Pressure 139/92 H Blood Pressure [Lying] 154/81 H Blood Pressure [Sitting (for 1 minute prior to obtaining)] 157/87 H Blood Pressure [Standing (for 1 minute prior to obtaining)] 158/98 H Blood Pressure Mean 107 Blood Pressure Mean [Lying] 105 Blood Pressure Mean [Sitting (for 1 minute prior to obtaining)] 110 Blood Pressure Mean [Standing (for 1 minute prior to obtaining)] 118 Pulse Ox 100 Oxygen Delivery Method Room Air Room Air 02/01/25 13:08 Temperature Temperature Source Pulse Rate 86 Pulse Rate [Lying] Pulse Rate [Sitting (for 1 minute prior to obtaining)] Pulse Rate [Standing (for 1 minute prior to obtaining)] Respiratory Rate 15 Blood Pressure 160/92 H Blood Pressure [Lying] Blood Pressure [Sitting (for 1 minute prior to obtaining)] Blood Pressure [Standing (for 1 minute prior to obtaining)] Blood Pressure Mean 114 Blood Pressure Mean [Lying] Blood Pressure Mean [Sitting (for 1 minute prior to obtaining)] Blood Pressure Mean [Standing (for 1 minute prior to obtaining)] Pulse Ox 95 Oxygen Delivery Method Room Air Positive well nourished and well developed General Appearance ED: well developed and NAD HEENT Reports moist mucous membranes normocephalic and atraumatic Eyes PERRL and EOMs intact bilaterally Neck full ROM and supple Resp normal respiratory effort and clear to auscultation bilaterally Cardio regular rate, regular rhythm and no murmurs Rate: tachycardic GI non-tender and non-distended Auscultation: normoactive bowel sounds Palpation: soft Back/Spine no CVA tenderness General Back: other FROM Extremity normal to inspection General Extremety ED: Negative for edema, pulses abnormal or tenderness General Extremity: Negative for edema or pulses abnormal Neuro oriented x3, CN's II-XII intact bilaterally and no sensory deficits noted Sensorium / Orientation: awake and alert Motor Exam: strength 5/5 throughout Psych Mood & Affect: anxious and tearful Skin no rashes or lesions noted and no wounds Heart Score History: Moderately Suspicious Age: >/= 65 years Risk Factors: >/= 3 Risk Factors or History of CAD Score: 5 MDM MDM MDM Narrative Medical decision making narrative: EMS sent a prehospital EKG that showed no STEMI on my interpretation. Acute coronary syndrome is in the differential as is PE, orthostasis, GI symptoms/etiology as the patient states she has had a very poor appetite for weeks related to new rheumatoid arthritis medication, and the patient states that she was having tingling all over and seems quite anxious which could be related as well. D-dimer was sent in addition to basic labs and we did obtainedan EKG while we gave the patient aspirin, IV fluids, nitroglycerin. Two-view chest x-ray my interpretation is normal radiology in agreement, and herD-dimer is significantly elevated, whereas the rest of her blood tests includingher troponin are normal. She was sent for CT angiography of the chest to evaluate for PE. I reviewed the images and report which I agree with, it was negative for PE or anything else acute. Orthostatics were negative. Her vital signs have improved since she has been observed here, with her tachycardia resolving. EKG is normal, she has had no dysrhythmias while she was here but certainly she could have been having a dysrhythmia before she was here. We observed her until we can get a second troponin measurement it actually went down, for a negative delta. Patient with a heart rate resting in the low 80s, she is asymptomatic, she is able to walk without feeling lightheaded and definitely feels better and more like herself. I spoke with respiratory, we do have Holter monitors available. I am having them place a 48-hour monitor on her, and she can follow-up with cardiology afterthe weekend. Lab Data Attestation: I reviewed the patient's lab results. Labs: Laboratory Results - last 24 hr 02/01/25 02/01/25 11:13 13:15 WBC 9.3 RBC 4.77 Hgb 12.4 Hct 38.4 MCV 80.5 L MCH 26.0 L MCHC 32.3 RDW Std Deviation 42.4 RDW Coeff of Daphne 14.6 Plt Count 587 H MPV 8.9 Immature Gran % (Auto) 0.800 Neut % (Auto) 72.3 H Lymph % (Auto) 19.8 Toombs % (Auto) 4.9 Eos % (Auto) 1.3 Baso % (Auto) 0.9 Absolute Neuts (auto) 6.8 Absolute Lymphs (auto) 1.85 Nucleated RBC % 0 APTT 28.4 D-Dimer Quant (PE/DVT) 3.14 H* Sodium 138 Potassium 3.2 L Chloride 99 Carbon Dioxide 22.4 Anion Gap 16 H BUN 11 Creatinine 0.70 Estim Creat Clear Calc 68.89 Est GFR (MDRD) Non-Af 95 BUN/Creatinine Ratio 15.4 Glucose 141 H Calcium 10.0 Troponin T High Sens 10 Troponin T Hi Sens 2 Hr 9 Radiography Diagnostic Testing: Clinical Impression(s) from Imaging Studies Chest X-Ray 02/01/25 12:00 IMPRESSION: Hyperinflation. The lungs are clear. Reading Location: [facility]-1 Chest CTA 02/01/25 12:30 IMPRESSION: No evidence of pulmonary embolism. Coronary artery calcifications. Minimal scarring at the left lung base. Reading Location: [facility]1 Rhythm Strip Rhythm Strip: Sinus Tach Rate: 104 Ectopy: None EKG Initial EKG: Attestation: I personally reviewed and interpreted this EKG as follows: Interpretation: Sinus Rhythm and No Acute Injury Pattern Comments: Nml axis & intervals; nml EKG Discharge Plan Triage Chief Complaint: Shortness of Breath ED Provider: Kirby Pritchett Dx/Rx/DC Orders Clinical Impression: Rapid palpitations, Lightheadedness, Chest pain Instructions: ED About Arrhythmias, ED Holter Monitor Prescriptions: No Action omeprazole 20 mg capsule,delayed release(DR/EC) 20 mg PO DAILY Patient Comments: TAKE 1 CAPSULE BY MOUTH EVERY DAY fexofenadine-pseudoephedrine [Allie-D 12 Hour] 60-120 mg tablet extended release 12 hr 1 tab PO DAILY PRN (Reason: allergy symptoms) leflunomide 10 mg tablet 10 mg PO DAILY aspirin [Adult Low Dose Aspirin] 81 mg tablet,delayed release (DR/EC) 81 mg PO DAILY lisinopril 20 mg tablet 20 mg PO DAILY biotin 1 mg capsule 1 mg PO DAILY cholecalciferol (vitamin D3) 50 mcg (2,000 unit) capsule 50 mcg PO DAILY mecobalamin (vitamin B12) 1,000 mcg lozenge 1,000 mcg PO DAILY Rx Instructions: allow to dissolve in mouth OR may chew lightly before swallowing alendronate 70 mg tablet 70 mg PO MEJIA Primary Care Provider: Henrry Odom Referrals: Henrry Odom MD [Primary Care Provider] - Nathaniel Lieberman MD [Med Staff - Active Staff] - As soon as possible Print Language: Rwandan Disposition Disposition: Home, Self Care What to do if you have Problems For any increased pain, shortness of breath, bleeding, nausea or vomiting, chestpain, or any unexpected problems, contact your Primary Care Provider. Call [facility] ([phone]) or report to the closest Emergency Room. Call 911 if necessary. 02/01/25 1434 <Electronically signed by Kirby Pritchett MD> Cosigner Signature (if applicable): CC: Dr. Henrry Odom MD; Dr. Nathaniel Lieberman MD ~ Signed [facility] Work Phone: 1(470) 867-826105-30-2025 Radiology Diagnostic study note [facility] Imaging Services [address] [place] [address] CTA Chest W/WO Contrast MR#: [id number] Acct: [id number] Name: FRANCIE MORENO Rep #: [id number] : 1960 F 64 From: Elmer Marquez MD PCP: Dr. Henrry Odom MD Status: REG ER Study:CTA Chest W/WO Contrast Date of Exam: 02/01/25 Exam# [id number] Ordering Dr: Shan Pritchett MD PROCEDURE: CTA CHEST W/WO CONTRAST 02/01/2025 REASON FOR EXAM: SOB, CP, ELEVATED D-DIMER TECHNIQUE: CTA axial imaging of the chest with intravenous contrast. Multiplanar and multisequence images wereobtained. PATIENT PREPARATION: Per protocol CONTRAST: Isovue-300 VOLUME: 100 mL One or more dose reduction techniques were used (e.g., Automated exposure control, adjustment of the mA and/or kV according to patient size, use of iterative reconstruction technique). RADIATION DOSE SUMMARY: CTDlvol: 9 mGy DLP: 379.03 mGycm . COMPARISON: Prior chest radiograph done earlier in the day. FINDINGS: Hardware: None Lymph nodes: Small lymph nodes are seen in both axilla. Largest lymph node in the left axilla measures 8.2 mm. No mediastinal lymph nodes. No hilar lymph nodes. Heart: The heart is nonenlarged. Coronary artery calcifications seen. Thoracic Aorta: No thoracic aortic aneurysm or dissection. Pulmonary Vessels: No evidence of pulmonary embolism. Lungs and Airways: Minimal linear scarring at the left lung base. Pleura: No pleural effusion. Upper Abdomen: Small cysts are seen in the upper pole of the left kidney. Bones: Degenerative changes of the thoracic spine. CT/CTA Chest W/WO Contrast IMPRESSION: No evidence of pulmonary embolism. Coronary artery calcifications. Minimal scarring at the left lung base. Reading Location: [facility] CC: Dr. Kirby Pritchett MD; Dr. Henrry Odom MD ~ Icu Rn: Signed [facility]05-30-2025 Radiology Diagnostic study note [facility] Imaging Services [address] [place], [place] [address] Chest PA and Lateral MR#: [id number] Acct: [id number] Name: FRANCIE MORENO Rep #: [id number] : 1960 F 64 From: Elmer Marquez MD PCP: Dr. Henrry Odom MD Status: REG ER Study:Chest PA and Lateral Date of Exam: 02/01/25 Exam# [id number] Ordering Dr: Shan Pritchett MD PROCEDURE: CHEST PA AND LATERAL 02/01/2025 REASON FOR EXAM: CHEST PAIN TECHNIQUE: Frontal and lateral views of the chest. COMPARISON: Prior study dated June 12, 2020. FINDINGS: Hardware: EKG electrodes are seen. Heart: The heart size is normal. Mediastinum: The mediastinal contour is unremarkable. Lungs: Hyperinflation. The lungs are clear. Bones: Degenerative changes are identified within the thoracic spine. RAD/Chest PA and Lateral IMPRESSION: Hyperinflation. The lungs are clear. Reading Location: [facility]--1 CC: Dr. Kirby Pritchett MD; Dr. Henrry Odom MD ~ Icu Rn: Signed [facility]03-14-2025 Telephone encounter Note* Telephone Encounter - Go Kendall MA - 11/16/2024 12:24 PM EDT Pharmacy faxed requesting the following refill. Requested Prescriptions Pending Prescriptions Disp Refills leflunomide (ARAVA) 10 mg tablet [Pharmacy Med Name: LEFLUNOMIDE 10 MG TABLET] 90 tablet 1 Sig: TAKE 1 TABLET BY MOUTH EVERY DAY Patient last appointment: 10/24/2024 Next Appointment: 12/05/2024 Patient Phone numbers: There are no phone numbers on file. Request is for script(s) to be escript to pharmacy. Go Kendall MA [facility]03-14-2025 Miscellaneous Notes* Telephone Encounter - Go Kendall MA - 11/16/2024 12:24 PM EDT Pharmacy faxed requesting the following refill. Requested Prescriptions Pending Prescriptions Disp Refills leflunomide (ARAVA) 10 mg tablet [Pharmacy Med Name: LEFLUNOMIDE 10 MG TABLET] 90 tablet 1 Sig: TAKE 1 TABLET BY MOUTH EVERY DAY Patient last appointment: 10/24/2024 Next Appointment: 12/05/2024 Patient Phone numbers: There are no phone numbers on file. Request is for script(s) to be escript to pharmacy. Go Kendall MA documented [facility]25 NoteHNO ID: [id number] Author: KELLY LOWE PA-C Service: ? Author Type: Physician Zoning Administrator Type: Progress Notes Filed: 11/15/2024 15:48 Note Text: [facility] Kelly Lowe [address] [place] [address] RHEUMATOLOGY VIRTUAL VISIT PROGRESS NOTE This is a virtual visit using Tvoopom Video Visit. It required patient-provider interaction for the medical decision making as documented below. I have communicated my name and active licensure. The patient's identity and physical location were verified at the time of this visit. Either the patient or their legal automotive sales representative has been informed of the risks and benefits of -- and alternatives to -- treatment through a remote evaluation and consents to proceed with the evaluation remotely.e clinic with questions. Subjective Last OV: 10/24/24 HPI: Francie Moreno is a 64 year old female who [...] not have an appetite. Feels like her stomach is swollen. She notes she gets diarrhea, can happen [...] STENT (2015 - ) Initial rheumatology visit [facility] (06/02/2018 Dr. Su): 58 year old female [...] is of prednisone. Hr last visit with sole assessor was in . She also has BMD, x rays, blood work in apr. She was also presribed SSZ which did not help. Had steroid injection. Leflunamide did not hlp RA involved knees and hands. At present she reports swelling of knees. On prednisone She also has fibromyalgia and reports sharp pain with every step. tail bone pain H/o [place] in 2016. episodes of dizziness and was [...] Hematocrit (%) Date Value 11/15/2022 38.0 Platelet Coun (more content not included)...[facility] 11-15-2024 History of Present illness Narrative* Kelly Lowe PA-C - 11/15/2024 7:28 AM EDT Images from the original note were not included. [facility] Rheumatology Kelly Lowe [address] [place] [address] RHEUMATOLOGY VIRTUAL VISIT PROGRESS NOTE This is a virtual visit using MyChart Zoom Video Visit. It required patient- provider interaction for the medical decision making as documented below. I have communicated my name and active licensure. The patient's identity and physical location wereverified at the time of this visit. Either the patient or their legal automotive sales representative has been informed of the risks and benefits of -- and alternatives to -- treatment through a remote evaluation andconsents to proceed with the evaluation remotely.e clinic with questions. Subjective Last OV: 10/24/24 HPI: Francie Moreno is a 64 year old female who [...] not have an appetite. Feels like her stomach is swollen. She notes she gets diarrhea, can happen [...] nausea after one month, Humira every other wekand then very week for 5 months - did not help. She has been on prednisone for 2 years and would like to be off of it completely. is unable to walk when she is of prednisone. Hr last visit with sole assessor was in . She also has BMD, x rays, blood work in apr. She was also presribedSSZ which did not help. Had steroid injection. Leflunamide did not hlp RA involved knees and hands. At present she reports swelling of knees. On prednisone She also has fibromyalgia and reports sharp pain with every step. tail bone pain H/o [place] in 2016. episodes of dizziness and was [...] fibroadenoma CC PCI CORONARY INTERVENT LAPS ABD PRTM&OMENTUM DX W/WO SPEC BR/WA SPX Laparoscopy lysis of adhesions LIG/TRNSXJ FLP TUBE ABDL/VAG APPR UNI/BI Tubal ligation PAST SURGICAL HISTORY OF 08/2011 colonoscopy- bleeding ulcer PAST SURGICAL HISTORY OF Right Total right knee replacement PAST SURGICAL HISTORY OF Left Total left knee replacement UPPER GI History Review: I have reviewed and modified as needed, the following during this visit: Allergies,Past Medical History, Past Surgical History, Past Family History, Past Social History. Physical Exam: Limited by telemedicine GENERAL: Well appearing, alert, comfortable, in no acute distress, well- hydrated, well nourished. SKIN: No obvious rash Recent [...] Date Value 11/15/2022 11 Latest Ref Rng & Units 03/12/2020 07/27/2022 ESR, WSR WSR 0 - 20 mm/hr 54 45 Latest Ref Rng & Units 07/27/2022 11/15/2022 CRP CRP <0.9 mg/dL [...] her rheumatoid arthritis. Physical exam extremely limited todaydue to telemedicine. Long discussion with the patient [...] with fibromyalgia. Imbalances of neurochemicals of the TELECOMMUNICATIONS REPAIRER have been associated with allodynia and hyperalgesia. Fibromyalgia varies from one patient to another, which results in different responses to medications used in the disease. Treatment for fibromyalgia involves nonpharmacologic and pharmacologictreatments. Nonpharmacologic therapies are preferred as first line treatment in fibromyalgia and include, but are not limited to, physical therapy, aqua therapy, swimming, Toro Chi, yoga, weight loss,quality sleep / good sleep hygiene, warm / cool compresses, gentle stretching, and cognitive behavioral therapy. Pt reports she feels best on prednisone and requests prednisone today. 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 Complications of chronic steroids include, but are not limitedto, obesity, hypertension, diabetes, osteoporotic fractures, avascular necrosis, [...] -differential for this includes diabetes and overactive bladderwhich are not managed by rheumatology. Patient advised to hold any immunosuppressant medication if sick or on antibiotics. Patient advisedto contact the clinic with questions. Last rheumatology OV note reviewed. I reviewed the above information with the patient multiple times as patient got the information confused. Patient was able to repeat back the treatment plan for today. I also clarified her last appointment's treatment plan and she will contact hematology as previously discussed. I provided her withthe phone number to schedule today. Discussed the above in detail with the patient. All questions were answered. Medications: Brief prednisone taper Testing: as below Follow up: As scheduled in December Pt instructed to contact the clinic with concerns or questions. [facility] on 11/15/24 COMPLETE BLOOD COUNT AND DIFFERENTIAL COMPREHENSIVE METABOLIC PANEL SEDIMENTATION RATE, WESTERGREN C-REACTIVE PROTEIN HEMOGLOBIN A1C Kelly Loew PA-C I spent a total of 46 minutes on the date of the service which included preparing to see the patient, [id number] patient care, completing clinical documentation, obtaining and/or reviewing separately obtained history, performing a medically appropriate examination, counseling and educating the pat ient/family/caregiver, ordering medications, tests, or procedures, and communicating results to thepatient/family/caregiver. documented in this encounterJames [place]ille [address]-12-2025 Telephone encounter Note * Telephone Encounter - Laura Nelson LPN - 11/14/2024 1:14 PM EDT Patient called asking if she can have Kelly Lowe PA-C give her a call. Patient states she is in so much pain and she would like to get back on the prednisone. Patient states, I am just a wreck. Patient complains of brain fog with her new medication. Patient states, It's not doing anything. Patient tearful during the telephone call. Patient states, she told me if Dr. Odom would not prescribe the prednisone and if he doesn't she would prescribe it and she would just give me half. Constant pain Large joints Not able to walk Migraines Patient states, I can't take this pain anymore. Patient states, I am not suicidal. Patient scheduled on 12/05/2024. Scheduled for vv on 11/15/2024. Provided number for [employer], . Laura Nelson LPN [facility]03-12-2025 Miscellaneous Notes* Telephone Encounter - Laura Nelson LPN - 11/14/2024 1:14 PM EDT Patient called asking if she can have Kelly Lowe PA-C give her a call. Patient states she is in so much pain and she would like to get back on the prednisone. Patient states, I am just a wreck. Patient complains of brain fog with her new medication. Patient states, It's not doing anything. Patient tearful during the telephone call. Patient states, she told me if Dr. Odom would not prescribe the prednisone and if he doesn't she would prescribe it and she would just give me half. Constant pain Large joints Not able to walk Migraines Patient states, I can't take this pain anymore. Patient states, I am not suicidal. Patient scheduled on 12/05/2024. Scheduled for vv on 11/15/2024. Provided number for [employer], . Laura Nelson LPN documented in [facility] encounterGal[facility]03-[facility] Telephone encounter Note * Telephone Encounter - Kelly Lowe PA-C - 11/07/2024 4:54 PM EST See other TE from today. [facility]03-05-2025 Miscellaneous Notes* Telephone Encounter - Kelly Lowe PA-C - 11/07/2024 4:54 PM EST See other TE from today. * Telephone Encounter - Laura Nelson LPN - 11/07/2024 12:23 PM EST Patient states she was in remission with [...] around one week ago. Patient stated you discussedSE with her during visit. Patient states you instructed her to contact PCP for prednisone and Dr. Odom will not prescribe more and told her to have Rheum fill the med. Dr. Odom off on Fridays. Patient asked her PCP to refer her to General Matcher. Laura Nelson LPN documented in this encounterGalion Hospital03-[facility]25 Telephone encounter Note * Telephone Encounter - Kelly Lowe PA-C - 11/07/2024 4:41 PM EST Prednisone use was not discussed outside of completion of her PCP taper, she was not instructed to call her PCP for more prednisone. See other encounter 11/01 regarding this. She needs an appointment if she is having side effects to Arava and flares. Schedule with PA in office. [facility]03-05-2025 Miscellaneous Notes* Telephone Encounter - Kelly Lowe PA-C - 11/07/2024 4:41 PM EST Prednisone use was not discussed outside of completion of her PCP taper, she was not instructed to call her PCP for more prednisone. See other encounter 11/01 regarding this. She needs an appointment if she is having side effects to Arava and flares. Schedule with PA in office. documented in this encounterGalion Hospital03-[facility]25 Telephone encounter Note * Telephone Encounter - Laura Nelson LPN - 11/07/2024 12:37 PM EST See telephone encounter on 11/07/2024. Laura Nelson LPN [facility]03-05-2025 Miscellaneous Notes* Telephone Encounter - Laura Nelson LPN - 11/07/2024 12:37 PM EST See telephone encounter on 11/07/2024. Laura Nelson LPN documented in this encounterGalion Hospital03-[facility]-2025 Telephone encounter Note * Telephone Encounter - Laura Nelson LPN - 11/07/2024 12:23 PM EST Patient states she was in remission with [...] around one week ago. Patient stated you discussedSE with her during visit. Patient states you instructed her to contact PCP for prednisone and Dr. Odom will not prescribe more and told her to have Rheum fill the med. Dr. Odom off on Fridays. Patient asked her PCP to refer her to General Matcher. Laura Nelson LPN [facility]02-27-2025 Telephone encounter Note* Telephone Encounter - Kelly Lowe PA-C - 11/01/2024 2:36 PM EST PCP gave pt prednisone taper and she was on last few days of this taper. I was not restarting prednisone for her, I put her on DMARD therapy. 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 Started Arava 10 mg daily with close follow up. starting prednisone from her PCP. Started at 40 mg x 5 days, then 20 mg x 5 days, now on 10 mg... Today is her first day on 10 mg pred. Will do this for 5 days then the taper will be complete. The patient presents today for follow up of RA after a 16 month hiatus from follow up. She has synovitis and tenderness as described above. Has not been on Arava, will start this today. Referral to hematology for abnormal SPEP. Repeat labs in 4 weeks after starting Arava to monitor for drug toxicity. Continue pred taper as per PCP directions. [facility]02-27-2025 Miscellaneous Notes* Telephone Encounter - Kelly Lowe PA-C - 11/01/2024 2:36 PM EST PCP gave pt prednisone taper and she was on last few days of this taper. I was not restarting prednisone for her, I put her on DMARD therapy. I did not request for PCP to manage chronic prednisone nor should pt be put on prison steroids. Started Arava 10 mg daily with close follow up. starting prednisone from her PCP. Started at 40 mg x 5 days, then 20 mg x 5 days, now on 10 mg... Today is her first day on 10 mg pred. Will do this for 5 days then the taper will be complete. The patient presents today for follow up of RA after a 16 month hiatus from follow up. She has synovitis and tenderness as described above. Has not been on Arava, will start this today. Referral to hematology for abnormal SPEP. Repeat labs in 4 weeks after starting Arava to monitor for drug toxicity. Continue pred taper as per PCP directions. * Telephone Encounter - Go Kendall MA - 11/01/2024 2:24 PM EST Sherin called from [facility] states Ilene Dias will not manage patient prednisone,it should be manage by a sole assessor. I was seen today and patient did not get prednisone. documented in this encounterGalion Hospital02-27-2025 Telephone encounter Note * Telephone Encounter - Go Kendall MA - 11/01/2024 2:24 PM EST Sherin called from [facility] states Ilene Dias will not manage patient prednisone,it should be manage by a sole assessor. I was seen today and patient did not get prednisone. [facility]02-19-2025 NoteHNO ID: [id number] Author: KELLY LOWE PA-C Service: ? Author Type: Physician Zoning Administrator Type: Progress Notes Filed: 10/30/2024 11:25 Note Text: [facility] Kelly Lowe [address] [place] [address] Subjective Last OV: 06/08/23 HPI: Francie Moreno is a 64 year old female who [...] use, marijuana gummies; CARDIAC STENT (2015 - [place]) Initial rheumatology visit H[facility] (06/02/2018 Dr. Su): [...] is of prednisone. Hr last visit with sole assessor was in . She also has BMD, x rays, blood work in apr. She was also presribed SSZ which did not help. Had steroid injection. Leflunamide did not hlp RA involved knees and hands. At present she reports swelling of knees. On prednisone She also has fibromyalgia and reports sharp pain with every step. tail bone pain H/o [place] in 2016. episodes of dizziness and was [...] (Temporal) Resp 13 Ht 157.6 cm (5' 2.05) Wt 86.1 kg (189 lb 13.1 oz) SpO2 95% BMI 34.67 kg/m? GENERAL: Well appearing, alert, comfortable, in no acute distress, well-hydrated, well nourished. HEENT: Negative for external ears normal. Canals are clear. Eye Exam normal. External nose normal, no nasal ulcer or throat ulcer. NECK: NECK Supple, no adenopathy NEURO: Motor and sensory exam normal MOTOR: Normal; including tone, gait, stressed gait (more content not included)...[facility]02-19-2025 History of Present illness Narrative* Kelly Lowe PA-C - 10/24/2024 12:01 PM EST Images from the original note were not included. [facility] Rheumatology Kelly Lowe [address] [place] [address] Subjective Last OV: 06/08/23 HPI: Francie Moreno is a 64 year old female who [...] day on 10 mg pred. Will do thisfor 5 days then the taper will be complete. She notes she takes Tylenol for her pain, which does not help now. Doesn't take it as much as she used to. She smokes marijuana and uses marijuana gummies,states no one will give her anything for [...] nausea after one month, Humira every other wekand then very week for 5 months - did not help. She has been on prednisone for 2 years and would like to be off of it completely. Sh is unable to walk when she is of prednisone. Hr last visit with sole assessor was in . She also has BMD, x rays, blood work in apr. She was also presribedSSZ which did not help. Had steroid injection. Leflunamide did not hlp RA involved knees and hands. At present she reports swelling of knees. On prednisone She also has fibromyalgia and reports sharp pain with every step. tail bone pain H/o [place] in 2016. episodes of dizziness and was [...] fibroadenoma CC PCI CORONARY INTERVENT LAPS ABD PRTM&OMENTUM DX W/WO SPEC BR/WA SPX Laparoscopy lysis of adhesions LIG/TRNSXJ FLP TUBE ABDL/VAG APPR UNI/BI Tubal ligation PAST SURGICAL HISTORY OF 08/2011 colonoscopy- bleeding ulcer PAST SURGICAL HISTORY OF Right Total right knee replacement PAST SURGICAL HISTORY OF Left Total left knee replacement UPPER GI History Review: I have reviewed and modified as needed, the following during this visit: Allergies,Past Medical History, Past Surgical History, Past Family History, Past Social History. Physical Exam BP 163/88 Pulse 76 Temp 36.7 C (98 F) (Temporal) Resp 13 Ht 157.6 cm (5' 2.05) Wt 86.1 kg (189 lb 13.1 oz) SpO2 95% BMI 34.67 kg/m GENERAL: Well appearing, alert, comfortable, in no acute distress, well- hydrated, well nourished. HEENT: Negative for external ears [...] Date Value 11/15/2022 11 Latest Ref Rng & Units 03/12/2020 07/27/2022 ESR, WSR WSR 0 - 20 mm/hr 54 45 Latest Ref Rng & Units 07/27/2022 11/15/2022 CRP CRP <0.9 mg/dL [...] medication if sick or on antibiotics. Patient advisedto contact the clinic with questions. Last rheumatology [...] which included preparing to see the patient, [id number] patient care, completing clinical documentation, obtaining and/or reviewing separately obtained history, performing a medically appropriate examination, counseling and educating the pat ient/family/caregiver, ordering medications, tests, or procedures, and communicating results to thepatient/family/caregiver. [facility] Telephone encounter Note * Telephone Encounter - Laura Nelson LPN - 10/15/2024 11:25 AM EST SoloKarlyyevgeniymaria luisa (Daughter) [facility] Patient scheduled, see below. Kelly- Please see telephone message 10/11/2024. Laura Nelson LPN Provider Department Encounter # Center 10/24/2024 11:40 AM Kelly Lowe PA-C [facility] Provider Department Encounter # Center 02/18/2025 11:40 AM [facility] Miscellaneous Notes* Telephone Encounter - Laura Nelson LPN - 10/15/2024 11:25 AM EST Ni Banda (Daughter) [facility] Patient scheduled, see below. Kelly- Please see telephone message 10/11/2024. Laura Nelson LPN Provider Department Encounter # Center 10/24/2024 11:40 AM Kelly Lowe PA-C [facility] Provider Department Encounter # Center 02/18/2025 11:40 AM Shelly Su MD [facility] * Telephone Encounter - Shelly Su MD - 10/15/2024 9:45 AM EST Laura Lets follow up with her on phone in a week * Telephone Encounter - Saba Pulido - 10/12/2024 2:34 PM EST Patient is severely distressed and depressed. She even states she went into a deep depression last month She needs phychiatric help and and she wants it but states her insurance will not cover this treatment in [facility]. She denied saying to her PCP that she had been reaching out to us and thatwe were not responding. She told me that we have reached out to her several times (Laura and Jen)However, she does not have transportation up to our office from [place] and is to afraid of transportation with a provide a ride situation. Very high anxiety. I did not get her scheduled at this timeshe wants to check with her daughter for her next day off and she promises she will call Laura at [phone]. I do not want her getting lost in the system since I will not be here. I will bring Noman to date. Saba Pulido documented in this encounterGalion Hospital02-10-[facility]25 Telephone encounter Note * Telephone Encounter - Shelly Su MD - 10/15/2024 9:45 AM EST Jet Palmer follow up with her on phone in a week [facility]02-07-[facility] Telephone encounter Note* Telephone Encounter - Saba Pulido - 10/12/2024 2:34 PM EST Patient is severely distressed and depressed. She even states she went into a deep depression last month She needs phychiatric help and and she wants it but states her insurance will not cover this treatment in [facility]. She denied saying to her PCP that she had been reaching out to us and thatwe were not responding. She told me that we have reached out to her several times (Laura and Jen)However, she does not have transportation up to our office from [place] and is to afraid of transportation with a provide a ride situation. Very high anxiety. I did not get her scheduled at this timeshe wants to check with her daughter for her next day off and she promises she will call Laura at . I do not want her getting lost in the system since I will not be here. I will bring Noman to date. Saba Pulido [facility]02-06-[facility] Telephone encounter Note* Telephone Encounter - Shelly Su MD - 10/11/2024 4:20 PM EST Received a call from PCP office. Patient not been seen since 06/27. I was old that she has been calling our office. But I dont see any messages and no my chart mesgs as well. Please reach out to her Follow up soon with PA in office 4-5 months in office with me [facility]02-06-[facility] Miscellaneous Notes* Telephone Encounter - Shelly Su MD - 10/11/2024 4:20 PM EST Received a call from PCP office. Patient not been seen since 06/27. I was old that she has been calling our office. But I dont see any messages and no my chart mesgs as well. Please reach out to her Follow up soon with PA in office 4-5 months in office with me documented in this encounterGalion Hospital08-07-2023 Consult note Author Brittany Aguila [facility] April 11, 2023 2:27pm Note Date/Time April 11, 2023 2:2 7pm [facility] Medical Records Department [address] [place] [address] Counseling Note - Pharmacy 04/11/23 1425 MR#: [id number] Acct: [id number] Name: FRANCIE MORENO Rep #:[id number] : 1960 63 From: Brittany Aguila PCP: Dr. Duane Odom MD Status: ADM IN Y [id number] has performed discharge medication reconciliation and counseling for this patient. Per patient, she is no longer taking cefadroxil. 1. ASPIRIN 81MG PO BID X 30 DAYS 2. DOXYCYCLINE 100MG PO BID X 9 DAYS 3. MELOXICAM 7.5MG PO BID X 30 DAYS 4. OXYCODONE 5-10MG PO Q4H PRN PAIN The patient's discharge medication list was reviewed for discrepancies and discrepancies were resolved. The patient was counseled on the following discharge medications and changes in medications for homegoing were reviewed. The Reason for Use, instructions for use, and potential side effects were reviewed for all new medications. The patient's questions regarding all of their medications were answered. The patient was able to verbally demonstrate an understanding of their dischargemedications. Patient counseled by front sight attacherAmanda. Medications at Discharge Home Medications fexofenadine 60 mg tablet 60 mg PO DAILY PRN Allergies 06/11/20 acetaminophen 500 mg tablet 1,000 mg (2 x 500 mg) PO Q8 PRN Pain #90 tabs 05/27/21 ergocalciferol (vitamin D2) 1,250 mcg (50,000 unit) capsule 50,000 unit PO Mejia@1000 supplement 06/29/21 folic acid 1 mg tablet 1 mg PO DAILY supplement 12/22/22 lisinopril 10 mg tablet 20 mg PO DAILY blood pressure 12/22/22 duloxetine 30 mg capsule,delayed release 30 mg PO DAILY STOOL SOFTENER 30 days #30 caps 02/02/23 ferrous sulfate 325 mg (65 mg iron) tablet (FeroSul) 325 mg PO 1200,1700 LOW IRON 30 days #60 tabs 02/02/23 omeprazole 20 mg capsule,delayed release 20 mg PO DAILY GERD 03/02/23 tizanidine 4 mg tablet 4 mg PO QHS SLEEP 03/02/23 cefadroxil 500 mg capsule 500 mg PO TID UTI 04/01/23 aspirin 81 mg capsule 81 mg PO BID 30 days #60 caps 04/11/23 doxycycline monohydrate 100 mg capsule 100 mg PO BID 9 days #18 caps 04/11/23 meloxicam 7.5 mg tablet 7.5 mg PO BID 30 days #60 tabs 04/11/23 oxycodone 5 mg tablet 5 - 10 mg (1 - 2 x 5 mg) PO Q4H PRN PRN Pain Score 4-10 7 days #60 tabs 04/11/23 04/11/23 1427 <Electronically signed by Brittany Aguila> Date _ Brittany Aguila Cosigner Signature (if applicable): Date CC: ~ Signed [facility] Work Phone: 1(316) 635-934708-07-2023 Discharge summary Author Leonel [facility] April 11, 2023 11:56am Note Date/Time April 11, 2023 11: 56am [facility] Medical Records Department [address] [place] [id number] Discharge Summary 04/11/23 1147 MR#: [id number] Acct: [id number] Name: FRANCIE MORENO Rep #:[id number] : 1960 63 From: Leonel ORTA PA-C PCP: Dr. Duane Odom MD Status: ADM IN Location: IA3 [id number] Providers Date of Admission: 04/06/23 Date of Discharge: 04/11/23 Primary Care Physician: Dr. Duane Odom MD Consultations 04/06/23 06:58 Consult: Hospitalist Routine Consulting Provider: Vicente Barrow Reason for Consult: post op med management EMERGENT Consult: No MD Notified: Yes Date Notified: 04/06/23 Time Notified: 17:34 Method of Notification: Text 04/07/23 08:27 Consult: Onc/Wound/ditch digger Routine Comment: Reason for Consult:: left knee wound VAC Diagnosis Discharge Diagnosis (1) Status post revision of total replacement of left knee: Status: Acute Code(s): Z96.652 - Presence of left artificial knee joint Plan: 1. S/P revision left total knee replacement with removal of antibiotic spacer POD #5 2. Continue Pain Medications: Tylenol, meloxicam, oxycodone. Do not take any other nonsteroidal anti-inflammatories while using meloxicam/Mobic. Pain has been controlled on medications. 3. DVT Prophylaxis: Take 81 mg aspirin twice daily for 4 weeks postoperatively for DVT prophylaxis. Patient denies past history of DVT or pulmonary embolism 4. PT/OT: Weightbearing as tolerated with walker. Patient has progressed her distance walking with physical therapy through the weekend. She currently walked 110 feet today. 5. H & H: 9.8/30.0, asymptomatic. Vitals are stable. Patient's hemoglobin hasbeen trending upward. She has had postoperative anemia without intraoperative complications. She has been treated with ferrous sulfate and folic acid. She will continue with ferrous sulfate and folic acid in which she has medications at home. She has to follow-up with her primary care physician in 2 weeks for repeat lab work and discussion with her primary care physician with further management. She was instructed with the ferrous sulfate this can cause some constipation and if she notices any stool color changes to contact our office. 6. Reactive leukocytosis: Resolved 7. Postoperative wound drainage: Wound VAC was removed today and there was no erythema or any active drainage. A Mepilex dressing was placed over the incision. We will have her continue with physical therapy today and the plan will be to be discharged with a Mepilex dressing unless there is drainage. If any further drainage possible incisional wound VAC. If she goes home with the Mepilex dressing she is to remove the dressing on April 18, 2023. She can shower with the Mepilex dressing. 8. Continue postoperative medical management per medicine: O2 saturation has been stable on room air 9. Currently on doxycycline for 2 weeks postoperatively. Microbiology wound and tissue specimens were reviewed in chart and there is currently no growth or organisms seen today. Potential side effects of doxycycline including sensitivity to the sunlight and increased risk of skin burn have been discussed with the patient. Recommend patient take appropriate precautions. Also recommend patient to take probiotic while on the antibiotic. Patient voiced understanding agreement. 10. Encouraged Incentive Spirometry 11. Disposition: Patient has continued to progress with physical therapy and doing well. She did not get approval from insurance for discharge to transitional care unit. She will be set up with home health physical therapy bycase management. I discussed with the patient the importance of continuing to work on range of motion and strengthening exercises as she has gone through manysurgeries for this knee. She voiced understanding and agreement. She would like her medications E scribed to [facility]. She will follow-up per postoperative instructions. She will contact her office upon discharge with any concerns or questions. Patient will be set up with a follow-up with her primary care physician for continued management of the postoperative anemia. I have reviewed the [place] Automated Rx Reporting System (OARRS) report for this patient for refill pattern and other prescriber involvement as part of the appropriate surveillance for the provision of acute and chronic controlled medications. The report was requested and reviewed on the date of this entry and was considered in the prescribing process. This dictation was created using voice recognition software. Phonetic and/or grammatical errors may exist. Medications at Discharge Home Medications fexofenadine 60 mg tablet 60 mg PO DAILY PRN Allergies 06/11/20 acetaminophen 500 mg tablet 1,000 mg (2 x 500 mg) PO Q8 PRN Pain #90 tabs 05/27/21 ergocalciferol (vitamin D2) 1,250 mcg (50,000 unit) capsule 50,000 unit PO Mejia@1000 supplement 06/29/21 folic acid 1 mg tablet 1 mg PO DAILY supplement 12/22/22 lisinopril 10 mg tablet 20 mg PO DAILY blood pressure 12/22/22 duloxetine 30 mg capsule,delayed release 30 mg PO DAILY STOOL SOFTENER 30 days #30 caps 02/02/23 ferrous sulfate 325 mg (65 mg iron) tablet (FeroSul) 325 mg PO 1200,1700 LOW IRON 30 days #60 tabs 02/02/23 omeprazole 20 mg capsule,delayed release 20 mg PO DAILY GERD 03/02/23 tizanidine 4 mg tablet 4 mg PO QHS SLEEP 03/02/23 cefadroxil 500 mg capsule 500 mg PO TID UTI 04/01/23 aspirin 81 mg capsule 81 mg PO BID 30 days #60 caps 04/11/23 doxycycline monohydrate 100 mg capsule 100 mg PO BID 9 days #18 caps 04/11/23 meloxicam 7.5 mg tablet 7.5 mg PO BID 30 days #60 tabs 04/11/23 oxycodone 5 mg tablet 5 - 10 mg (1 - 2 x 5 mg) PO Q4H PRN PRN Pain Score 4-10 7 days #60 tabs 04/11/23 Hospital Course Operations total knee replacement (Left knee removal antibiotic spacer with revision left total knee arthroplasty) Procedures Wound vac placement (Removed on April 11, 2023 with Mepilex dressing placed overincision) Summary of Care Provided Hospital Course: Patient is a 63-year-old female who has had extensive history of left knee surgery. Patient had a left knee explant total knee replacement with placement of articulating antibiotic spacer on December 29, 2022. She had her initial left total knee arthroplasty done by Dr. Lalit Charles on June 26, 2021. After that procedure she had worsening symptoms in which there was evidence of loosening. She had positive cultures for Enterococcus faecalis. She underwent antibiotic spacer. She was treated postoperatively for 6 weeks with IV antibiotics. After failing conservative and surgical measures, the patient opted to proceed with a left knee removal antibiotic spacer to a left revision total knee arthroplasty. The patient underwent the above-stated procedure on April 06, 2023. Patient did receive perioperative antibiotics. Intraoperatively was uneventful. For details please see dictated operative note. The patient was placed in thigh-high teds, bilateral SCDs, remained stable in recovery. Patient was admitted to the 3rd floor at [facility]. The patient's pain was managed with the use of IV and p.o. pain medications. Patient had incisional wound VAC which was placed intraoperatively however due to significant drainage a regular wound VAC was placed. Patient had no drainagethere after placement of the wound VAC. Wound VAC was removed on April 11nd Mepilex dressing was placed. She will continue with the Mepilex dressing for an additional 1 week. Cultures have been negative and reviewed in the hospital chart. She has continued on the doxycycline and will continue with this for 2 weeks postoperatively. Patient did have postoperative anemia in which she was treated with ferrous sulfate and folic acid. Hemoglobin has been trending upward and she will continue with this treatment and [facility] 2 weeks. Further assessment of her postoperative anemia will be addressed by the primary care physician and if further treatment will be required. Patient participated in physical therapy while in the hospital. Patient did advance the amount of walking and today she is walking 110 feet. She was denied from insurance discharge to transitional care unit at [facility]. Case management has been involved for appropriate discharge planning. She will be set up with home health physical therapy. Patient was discharged on postoperative day # 5 to home with home health physical therapy. Patient was given medications stated below. Patient will follow up with [facility] per postop instructions for reassessment. Physical Exam Narrative Vital signs stable and afebrile. SCDs and BRUCE hose are in place bilaterally Patient is able to plantarflex and dorsiflex actively. Sensation is intact to light touch to saphenous, sural, superficial and deep peroneal, and tibial distribution. Wound VAC dressing was removed today and incision is doing well without any active drainage or erythema. Sutures are in place. Mepilex dressing was placedover the incision. Negative Homans bilaterally, negative signs and symptoms of DVT. Const alert, oriented x3 and no apparent distress Weight / BMI Weight Weight: 92 kg Body Mass Index (BMI) 37.0 ABG / Lab / Microbiology Data 04/11/23 07:55 04/11/23 07:55 Laboratory: Laboratory Results - last 24 hr 04/11/23 07:55: WBC 5.6, RBC 3.32 L, Hgb 9.8 L, Hct 30.0 L, MCV 90.4, MCH 29.5, MCHC 32.7, RDW Std Deviation 44.1 H, RDW Coeff of Daphne 13.6, Plt Count 308, MPV 9.1, Immature Gran % (Auto) 1.100 H, Neut % (Auto) 58.6, Lymph % (Auto) 26.6, Toombs % (Auto) 7.1, Eos % (Auto) 5.7 H, Baso % (Auto) 0.9, Absolute Neuts (auto) 3.3, Absolute Lymphs (auto) 1.50, Nucleated RBC % 0, Sodium 140, Potassium 3.8, Chloride 105, Carbon Dioxide 32.0, Anion Gap 3 L, BUN 14, Creatinine 0.72, EstimCreat Clear Calc 62.43, Est GFR (MDRD) Af Amer 105, Est GFR (MDRD) Non-Af 87, BUN/Creatinine Ratio 19.4, Glucose 96, Calcium 8.7 Microbiology: Microbiology 04/06/23 11:05 Tissue - Tibial Membrane Gram Stain - Final 04/06/23 11:05 Tissue - Tibial Membrane Wound Culture - Final No growth aerobically. 04/06/23 11:05 Tissue - Tibial Membrane Anaerobic Culture - Final No growth in 5 days. 04/06/23 11:00 Tissue - Femoral Membrane Gram Stain - Final 04/06/23 11:00 Tissue - Femoral Membrane Wound Culture - Final No growth aerobically. 04/06/23 11:00 Tissue - Femoral Membrane Anaerobic Culture - Final No growth in 5 days. 04/06/23 10:55 Tissue - Suprapatellar Pouch Gram Stain - Final 04/06/23 10:55 Tissue - Suprapatellar Pouch Wound Culture - Final No growth aerobically. 04/06/23 10:55 Tissue - Suprapatellar Pouch Anaerobic Culture - Final No growth in 5 days. D/C Instructions Discharge Diet: No restrictions May shower in (days): 1 (Please turn dressing away from water. Okay to get wet as long as dressing is intact to skin.) Ice area for (Minutes): 20 (Every 1-2 hours while awake[address] Please place barrier between the skin and ice pack.) Weight Bearing Status: Weight bearing as tolerated (With walker) Keep extremity elevated above heart level: Operative Extremity Call your doctor if your incision/area has: Continuous Slow Oozing, Sudden Increased Bleeding, Increased Pain/ Swelling, Increased Redness and Foul Smelling Discharge Call your doctor if you observe: Fever of 101 or Higher, Coldness, Increased Pain, Numbness or Tingling, Change in Color, Shortness of breath, Chest pain, Calf discomfort and Uncontrolled pain Additional Dressing/Incision Instructions: Follow [facility] Post-op Instructions. Once postoperative dressing has been removed only use gentle soap and water overthe incision. Do not use any ointments, Neosporin, salves, alcohol pads over the incision for 6 weeks postoperatively. Do not submerge underwater for 6 weeks postoperatively. Continue with BRUCE hose/elastic stockings for 2 weeks postoperatively. May remove at nighttime but needs to be placed back on the leg during the day. Do NOT use alcohol with narcotic pain medication. Do NOT make important decisions while taking narcotic medication. If you have problems with taking your medication (rash, itching, nausea, etc.) call the office at once. Meaningful Use Info Meaningful Use Diagnoses (Choose all that apply): None applicable Discharge Plan Admission Admit Date/Time: 04/06/23 07:30 Attending Provider: Otf Richard Primary Care Provider: Duane Odom Consulting Providers: Be Kulkarni; Stephanie Martin Discharge Orders/Prescriptions Prescriptions: New aspirin 81 mg capsule 81 mg PO BID 30 Days Qty: 60 0RF Rx Instructions: Take 81 mg aspirin twice daily for 4 weeks postoperatively for DVT prophylaxis. meloxicam 7.5 mg Tablet 7.5 mg PO BID 30 Days Qty: 60 0RF Rx Instructions: Do not take any other nonsteroidal anti-inflammatories while using meloxicam/Mobic. doxycycline monohydrate 100 mg Capsule 100 mg PO BID 9 Days Qty: 18 0RF Rx Instructions: Continue doxycycline for 2 weeks postoperatively oxycodone 5 mg Tablet 5 - 10 mg PO Q4H PRN PRN (Reason: Pain Score 4-10) 7 Days Qty: 60 0RF Continued fexofenadine 60 MG tablet 60 mg PO DAILY PRN (Reason: Allergies) acetaminophen 500 mg Tablet 1,000 mg PO Q8 PRN (Reason: Pain) Qty: 90 0RF ergocalciferol (vitamin D2) 50,000 UNIT capsule 50,000 unit PO Mejia@1000 folic acid 1 mg Tablet 1 mg PO DAILY lisinopril 10 mg tablet 20 mg PO DAILY ferrous sulfate [FeroSul] 325 mg (65 mg iron) Tablet 325 mg PO 1200,1700 30 Days Qty: 60 0RF duloxetine 30 mg Capsule,Delayed Release(Dr/Ec) 30 mg PO DAILY 30 Days Qty: 30 0RF omeprazole 20 mg capsule,delayed release(DR/EC) 20 mg PO DAILY Patient Comments: TAKE 1 CAPSULE BY MOUTH EVERY DAY tizanidine 4 mg tablet 4 mg PO QHS Patient Comments: TAKE 1 TABLET BY MOUTH AT BEDTIME NEEDED cefadroxil 500 mg capsule 500 mg PO TID Patient Comments: TAKE 1 CAPSULE BY MOUTH THREE TIMES A DAY Discontinued oxycodone 5 mg Tablet 5 mg PO Q6H PRN PRN (Reason: Pain Score 4-10) 7 Days Qty: 28 0RF aspirin [Adult Low Dose Aspirin] 81 mg tablet,delayed release (DR/EC) 81 mg PO DAILY Referrals / Follow Up: Duane Odom MD [Primary Care Provider] - Leonel Snow PA-C [Med Staff - [facility]] - 04/21/23 4:00 pm Disposition Disposition (needs filled in before D/C Order can be placed): Home Health Service 04/11/23 1156 <Electronically signed by Leonel ORTA PA-C> Cosigner Signature (if applicable): CC: MEAGHAN Snow; Dr. Duane Odom MD~ Signed [facility] Work Phone: 1(522) 195-730908-07-2023 Discharge summary Author Leonel Snow [facility] April 11, 2023 11:46am Note Date/Time April 11, 2023 11: 41am [facility] Medical Records Department [address] [place] [id number] Instructions for Home/Discharge Instructions 04/11/23 1140 MR#: [id number] Acct: [id number] Name: FRANCIE MORENO Rep #:[id number] : 1960 63 From: Leonel ORTA PA-C PCP: Dr. Duane Odom MD Status: ADM IN Discharge Instructions Diet Discharge Diet: No restrictions Activity Discharge Activity: May Not Drive (Must be able to walk 100 feet without the useof cane or walker and off all narcotics) May shower in (days): 1 (Please turn dressing away from water. Okay to get wet as long as dressing is intact to skin.) Ice area for (Minutes): 20 (Every 1-2 hours while awake[address] place barrier between the skin and ice pack.) Weight Bearing Status: Weight bearing as tolerated (With walker) Keep extremity elevated above heart level: Operative Extremity Dressing / Incision Call your doctor if your incision/area has: Continuous Slow Oozing, Sudden Increased Bleeding, Increased Pain/ Swelling, Increased Redness and Foul Smelling Discharge Call your doctor if you observe: Fever of 101 or Higher, Coldness, Increased Pain, Numbness or Tingling, Change in Color, Shortness of breath, Chest pain, Calf discomfort and Uncontrolled pain Remove Dressing in: 1 week (Okay to remove Mepilex dressing on April 18, 2023) Additional Dressing/Incision Instructions:: Follow [facility] Post-op Instructions. Once postoperative dressing has been removed only use gentle soap and water overthe incision. Do not use any ointments, Neosporin, salves, alcohol pads over the incision for 6 weeks postoperatively. Do not submerge underwater for 6 weeks postoperatively. Continue with BRUCE hose/elastic stockings for 2 weeks postoperatively. May remove at nighttime but needs to be placed back on the leg during the day. Do NOT use alcohol with narcotic pain medication. Do NOT make important decisions while taking narcotic medication. If you have problems with taking your medication (rash, itching, nausea, etc.) call the office at once. Follow Up Care Test Results: Test results from this visit will be discussed in further detail at your follow- up appointment, if applicable. Discharge Plan Admission Admit Date/Time: 04/06/23 07:30 Attending Provider: Otf Richard Primary Care Provider: Duane Odom Consulting Providers: eB Kulkarni; Stephanie Martin Discharge Orders/Prescriptions Prescriptions: New aspirin 81 mg capsule 81 mg PO BID 30 Days Qty: 60 0RF Rx Instructions: Take 81 mg aspirin twice daily for 4 weeks postoperatively for DVT prophylaxis. meloxicam 7.5 mg Tablet 7.5 mg PO BID 30 Days Qty: 60 0RF Rx Instructions: Do not take any other nonsteroidal anti-inflammatories while using meloxicam/Mobic. doxycycline monohydrate 100 mg Capsule 100 mg PO BID 9 Days Qty: 18 0RF Rx Instructions: Continue doxycycline for 2 weeks postoperatively oxycodone 5 mg Tablet 5 - 10 mg PO Q4H PRN PRN (Reason: Pain Score 4-10) 7 Days Qty: 60 0RF Continued fexofenadine 60 MG tablet 60 mg PO DAILY PRN (Reason: Allergies) acetaminophen 500 mg Tablet 1,000 mg PO Q8 PRN (Reason: Pain) Qty: 90 0RF ergocalciferol (vitamin D2) 50,000 UNIT capsule 50,000 unit PO Mejia@1000 folic acid 1 mg Tablet 1 mg PO DAILY lisinopril 10 mg tablet 20 mg PO DAILY ferrous sulfate [FeroSul] 325 mg (65 mg iron) Tablet 325 mg PO 1200,1700 30 Days Qty: 60 0RF duloxetine 30 mg Capsule,Delayed Release(Dr/Ec) 30 mg PO DAILY 30 Days Qty: 30 0RF omeprazole 20 mg capsule,delayed release(DR/EC) 20 mg PO DAILY Patient Comments: TAKE 1 CAPSULE BY MOUTH EVERY DAY tizanidine 4 mg tablet 4 mg PO QHS Patient Comments: TAKE 1 TABLET BY MOUTH AT BEDTIME NEEDED cefadroxil 500 mg capsule 500 mg PO TID Patient Comments: TAKE 1 CAPSULE BY MOUTH THREE TIMES A DAY Discontinued oxycodone 5 mg Tablet 5 mg PO Q6H PRN PRN (Reason: Pain Score 4-10) 7 Days Qty: 28 0RF aspirin [Adult Low Dose Aspirin] 81 mg tablet,delayed release (DR/EC) 81 mg PO DAILY Referrals / Follow Up: Duane Odom MD [Primary Care Provider] - Leonel Snow PA-C [Med Staff - [facility]] - 04/21/23 4:00 pm Disposition Disposition (needs filled in before D/C Order can be placed): Home Health Service 04/11/23 1146<Electronically signed by Leonel ORTA PA-C>Leonel ORTA PA-C CC: Dr. Duane Odom MD; Dr. Be Kulkarni DO; Dr. Stephanie Martin DO ~ Signed [facility] Work Phone: [phone]) 755-940508-07-2023 Progress note Author [facility] April 11, 2023 11:40am Note Date/Time April 11, 2023 11: 40am [facility] Medical Records Department [address] [place] [address] Progress Note - Orthopedic 04/11/23 1130 MR#: [id number] Acct: [id number] Name: FRANCIE MORENO Rep #:[id number] : 1960 63 From: Leonel ORTA PA-C PCP: Dr. Duane Odom MD Status: ADM IN Location: MS3 [id number] Subjective Subjective The patient was sitting in bed upon examination. Patient denies any chest pain,shortness of breath, dizziness, lightheadedness, nausea or vomiting, or calf pain. Pain is controlled on medications. No adverse overnight events. Patienthas been doing well this morning. She walked 110 feet with physical therapy. Her pain is being controlled. She did not get approval for transitional care unit. Case management is currently involved setting patient up for home health physical therapy. Wound VAC was removed today as there has been no output. Incision is healing very well with no evidence of any drainage. No erythema. Cultures have been negative and patient has continued on the doxycycline. Her hemoglobin has been trending upward. She has been on folic acid and ferrous sulfate. Objective Data Objective Data Vital Signs: Vital Signs Temp Pulse Resp BP Pulse Ox O2 Del Method O2 Flow Rate 97.7 F L 66 18 106/50 L 95 Room Air 2 04/11/23 08:13 04/11/23 08:13 04/11/23 08:13 04/11/23 08:13 04/11/23 08:13 04/11/23 08:17 04/11/23 04:30 Oxygen Flow Rate (L/min) 2 Oxygen Delivery Method Room Air Weight: 92 kg Body Mass Index (BMI) 37.0 Intake & Output: Intake and Output for Last 24 Hours 04/09/23 04/10/23 04/11/23 23:59 23:59 23:59 Intake Total 1000 / 1000 1200 / 1200 Balance 1000 / 1000 1200 / 1200 Lab / Micro Data 04/11/23 07:55 04/11/23 07:55 Labs: Laboratory Results - last 24 hr 04/11/23 07:55: WBC 5.6, RBC 3.32 L, Hgb 9.8 L, Hct 30.0 L, MCV 90.4, MCH 29.5, MCHC 32.7, RDW Std Deviation 44.1 H, RDW Coeff of Daphne 13.6, Plt Count 308, MPV 9.1, Immature Gran % (Auto) 1.100 H, Neut % (Auto) 58.6, Lymph % (Auto) 26.6, Toombs % (Auto) 7.1, Eos % (Auto) 5.7 H, Baso % (Auto) 0.9, Absolute Neuts (auto) 3.3, Absolute Lymphs (auto) 1.50, Nucleated RBC % 0, Sodium 140, Potassium 3.8, Chloride 105, Carbon Dioxide 32.0, Anion Gap 3 L, BUN 14, Creatinine 0.72, EstimCreat Clear Calc 62.43, Est GFR (MDRD) Af Amer 105, Est GFR (MDRD) Non-Af 87, BUN/Creatinine Ratio 19.4, Glucose 96, Calcium 8.7 Micro: Microbiology 04/06/23 11:05 Tissue - Tibial Membrane Gram Stain - Final 04/06/23 11:05 Tissue - Tibial Membrane Wound Culture - Final No growth aerobically. 04/06/23 11:05 Tissue - Tibial Membrane Anaerobic Culture - Final No growth in 5 days. 04/06/23 11:00 Tissue - Femoral Membrane Gram Stain - Final 04/06/23 11:00 Tissue - Femoral Membrane Wound Culture - Final No growth aerobically. 04/06/23 11:00 Tissue - Femoral Membrane Anaerobic Culture - Final No growth in 5 days. 04/06/23 10:55 Tissue - Suprapatellar Pouch Gram Stain - Final 04/06/23 10:55 Tissue - Suprapatellar Pouch Wound Culture - Final No growth aerobically. 04/06/23 10:55 Tissue - Suprapatellar Pouch Anaerobic Culture - Final No growth in 5 days. Physical Exam Narrative Vital signs stable and afebrile. SCDs and BRUCE hose are in place bilaterally Patient is able to plantarflex and dorsiflex actively. Sensation is intact to light touch to saphenous, sural, superficial and deep peroneal, and tibial distribution. The wound VAC is currently in place with no drainage in the canister or tubing. There is stable drainage surrounding the foam dressing. Wound VAC was removed and there was no active drainage. No erythema. Sutures are in place. Negative Homans bilaterally, negative signs and symptoms of DVT. Const alert, oriented x3 and no apparent distress Extremity Extremity Narrative: Left lower extremity: Wound VAC dressing is clean dry and intact. There is no fluid in the container or tubing. Patient able to flex knee comfortably to 90 degrees with heel slide in bed Sensations intact to light touch saphenous, sural, superficial peroneal, deep peroneal, and tibial distributions Motors intact EHL, DF, PF calves are soft and supple Assessment & Plan Assessment/Plan (1) Status post revision of total replacement of left knee: PLAN: 1. S/P revision left total knee replacement with removal of antibiotic spacer POD #5 2. Continue Pain Medications: Tylenol, meloxicam, oxycodone. Do not take any other nonsteroidal anti-inflammatories while using meloxicam/Mobic. Pain has been controlled on medications. 3. DVT Prophylaxis: Take 81 mg aspirin twice daily for 4 weeks postoperatively for DVT prophylaxis. Patient denies past history of DVT or pulmonary embolism 4. PT/OT: Weightbearing as tolerated with walker. Patient has progressed her distance walking with physical therapy through the weekend. She currently walked 110 feet today. 5. H & H: 9.8/30.0, asymptomatic. Vitals are stable. Patient's hemoglobin hasbeen trending upward. She has had postoperative anemia without intraoperative complications. She has been treated with ferrous sulfate and folic acid. She will continue with ferrous sulfate and folic acid in which she has medications at home. She has to follow-up with her primary care physician in 2 weeks for repeat lab work and discussion with her primary care physician with further management. She was instructed with the ferrous sulfate this can cause some constipation and if she notices any stool color changes to contact our office. 6. Reactive leukocytosis: Resolved 7. Postoperative wound drainage: Wound VAC was removed today and there was no erythema or any active drainage. A Mepilex dressing was placed over the incision. We will have her continue with physical therapy today and the plan will be to be discharged with a Mepilex dressing unless there is drainage. If any further drainage possible incisional wound VAC. If she goes home with the Mepilex dressing she is to remove the dressing on April 18, 2023. She can shower with the Mepilex dressing. 8. Continue postoperative medical management per medicine: O2 saturation has been stable on room air 9. Currently on doxycycline for 2 weeks postoperatively. Microbiology wound and tissue specimens were reviewed in chart and there is currently no growth or organisms seen today. Potential side effects of doxycycline including sensitivity to the sunlight and increased risk of skin burn have been discussed with the patient. Recommend patient take appropriate precautions. Also recommend patient to take probiotic while on the antibiotic. Patient voiced understanding agreement. 10. Encouraged Incentive Spirometry 11. Disposition: Patient has continued to progress with physical therapy and doing well. She did not get approval from insurance for discharge to transitional care unit. [facility] I discussed with the patient the importance of continuing to work on range of motion and strengthening exercises as she has gone through manysurgeries for this knee. She voiced understanding and agreement. She would like her medications E scribed to [facility]. She will follow-up per postoperative instructions. She will contact her office upon discharge with any concerns or questions. Patient will be set up with a follow-up with her primary care physician for continued management of the postoperative anemia. I have reviewed the [place] Automated Rx Reporting System (OARRS) report for this patient for refill pattern and other prescriber involvement as part of the appropriate surveillance for the provision of acute and chronic controlled medications. The report was requested and reviewed on the date of this entry and was considered in the prescribing process. This dictation was created using voice recognition software. Phonetic and/or grammatical errors may exist. 04/11/23 1140 <Electronically signed by Leonel ORTA PA-C> Cosigner Signature (if applicable): CC: ~ Signed [facility] Work Phone: [phone](911) 819-491408-06-2023 Progress note Author Otf Richard [facility] April 10, 2023 4:13pm Note Date/Time April 10, 2023 4:1 4pm [facility] Medical Records Department [address] [place] [address] Progress Note - Orthopedic 04/10/23 1606 MR#: [id number] Acct: [id number] Name: FRANCIE MORENO Rep #:[id number] : 1960 63 From: Otf Lim PCP: Dr. Duane Odom MD Status: ADM IN Location: MS3 [id number] Subjective Subjective 63-year-old female status post articulating antibiotic spacer remover and revision left total knee replacement presents today resting in bed patient was sleeping upon my arrival. I did awaken the patient she reported being comfortable. Therapy note states she is showing improvement. 150 feet x 2 today. She reports working with stairs in therapy. One of the biggest hurdles to discharge home is the patient has 2 flights of stairs to navigate her home from her bedroom to the bathroom. Her vital signs have been stable despite a good drop in hemoglobin directly after surgery. She is awaiting approval to be discharged to transitional care unit. She is seen further recovery over the weekend. We will determine final disposition tomorrow after positioning insurance. Objective Data Objective Data Vital Signs: Vital Signs Temp Pulse Resp BP Pulse Ox O2 Del Method O2 Flow Rate 98 F 86 18 151/81 H 98 Room Air 2 04/10/23 10:00 04/10/23 10:00 04/10/23 10:00 04/10/23 10:00 04/10/23 10:00 04/10/23 10:00 04/08/23 04:06 Oxygen Flow Rate (L/min) 2 Oxygen Delivery Method Room Air Weight: 202 lb 13.204 oz Body Mass Index (BMI) 37.0 Intake & Output: Intake and Output for Last 24 Hours 04/08/23 04/09/23 04/10/23 23:59 23:59 23:59 Intake Total 1401.25 / 1401.25 1000 / 1000 800 / 800 Balance 1401.25 / 1401.25 1000 / 1000 800 / 800 Lab / Micro Data Attestation: I reviewed the patient's lab results. 04/09/23 05:20 04/07/23 05:42 Micro: Microbiology 04/06/23 11:05 Tissue - Tibial Membrane Gram Stain - Final 04/06/23 11:05 Tissue - Tibial Membrane Wound Culture - Final No growth aerobically. 04/06/23 11:05 Tissue - Tibial Membrane Anaerobic Culture - Preliminary No growth in 48 hours. 04/06/23 11:00 Tissue - Femoral Membrane Gram Stain - Final 04/06/23 11:00 Tissue - Femoral Membrane Wound Culture - Final No growth aerobically. 04/06/23 11:00 Tissue - Femoral Membrane Anaerobic Culture - Preliminary No growth in 48 hours. 04/06/23 10:55 Tissue - Suprapatellar Pouch Gram Stain - Final 04/06/23 10:55 Tissue - Suprapatellar Pouch Wound Culture - Final No growth aerobically. 04/06/23 10:55 Tissue - Suprapatellar Pouch Anaerobic Culture - Preliminary No growth in 48 hours. Radiography Diagnostic Testing: Postoperative x-rays of the left knee were reviewed showing stable well aligned condylar constrained knee replacement. Physical Exam Const alert, oriented x3 and no apparent distress Extremity Extremity Narrative: Left lower extremity: Wound VAC dressing is clean dry and intact. There is no fluid in the container or tubing. Patient able to flex knee comfortably to 90 degrees with heel slide in bed Sensations intact to light touch saphenous, sural, superficial peroneal, deep peroneal, and tibial distributions Motors intact EHL, DF, PF calves are soft and supple Assessment & Plan Assessment/Plan (1) Status post revision of total replacement of left knee: PLAN: 1. S/P revision left total knee replacement with removal of antibiotic spacer POD #4 2. Continue Pain Medications: Tylenol, meloxicam, oxycodone. Do not take any other nonsteroidal anti-inflammatories while using meloxicam/Mobic. Pain has been controlled on medications. 3. DVT Prophylaxis: Take 81 mg aspirin twice daily for 4 weeks postoperatively for DVT prophylaxis. Patient denies past history of DVT or pulmonary embolism 4. PT/OT: Weightbearing as tolerated with walker 5. H & H: 9.5/29.1, asymptomatic. Vitals are stable. Remain on ferrous sulfate and folic acid. We will recheck labs tomorrow. 6. Reactive leukocytosis: Resolved 7. Postoperative wound drainage: Patient's wound VAC has been without drainage since being placed. At this point I would consider a disposable wound VAC upon discharge as an appropriate plan. 8. Continue postoperative medical management per medicine: O2 saturation has been stable on room air 9. Currently on doxycycline for 2 weeks postoperatively. Microbiology wound and tissue specimens were reviewed in chart and there is currently no growth or organisms seen today. Potential side effects of doxycycline including sensitivity to the sunlight and increased risk of skin burn have been discussed with the patient. Recommend patient take appropriate precautions. Also recommend patient to take probiotic while on the antibiotic. Patient voiced understanding agreement. 10. Encouraged Incentive Spirometry 11. Disposition: We are currently waiting on approval for discharge to transitional care unit. Patient has had extensive surgeries on her left knee. Patient also has 2 flights of stairs to attend to at home. She is in the basement. If she remains in a skilled facility incisional wound VAC would be appropriate. If she is discharged home can likely be discharged with a disposable wound VAC. She has worked with physical therapy and Occupational Therapy this weekend. Yesterday patient remained guarded. Today patient was able to walk 115 feet and reports tolerating the stairs. I do feel patient would benefit from fci facility upon discharge she continues to havediscomfort with therapy and also has 2 flights of stairs at home to navigate. We will continue to follow her hemoglobin. Continue with ferrous sulfate and folic acid at this time. Continue postoperative pain regimen. We will continueto monitor the wound VAC. Dressing change will occur on Tuesday by wound nurse. [facility] Office: This dictation was created using voice recognition software. Phonetic and/or grammatical errors may exist. 04/10/23 1613 <Electronically signed by Otf Richard MD> Cosigner Signature (if applicable): CC: ~ Signed [facility] Work Phone: 1(878) [phone] Progress note Author Leonel Snow [facility] April 09, 2023 10:51am Note Date/Time April 09, 2023 10: 51am [facility] Medical Records Department [address] [place] [address] Progress Note - Orthopedic 04/09/23 1045 MR#: [id number] Acct: [id number] Name: FRANCIE MORENO Rep #:[id number] : 1960 63 From: Leonel ORTA PA-C PCP: Dr. Duane Odom MD Status: ADM IN Location: [place] [id number] Subjective Subjective The patient was sitting in bed upon examination. Patient denies any chest pain,shortness of breath, dizziness, lightheadedness, nausea or vomiting, or calf pain. Pain is controlled on medications. No adverse overnight events. Patientcontinues to have pain that reaches 8/10 but upon taking medication is improved. She is in no apparent distress on examination today. We are currently waiting on approval from insurance for possible transitional care placement. Patient has continued to have the wound VAC. There is no drainage in the tubing or canister. Patient states she had increased frequency yesterday with using the restroom however she has no burning or discharge. We will continue to monitor. Patient's hemoglobin has stabilized and she will continue with ferrous sulfate. Cultures are currently without any growth. She continues on the doxycycline. Objective Data Objective Data Vital Signs: Vital Signs Temp Pulse Resp BP Pulse Ox O2 Del Method O2 Flow Rate 98.0 F 76 16 141/69 H 97 Room Air 2 04/09/23 09:00 04/09/23 09:00 04/09/23 09:00 04/09/23 09:00 04/09/23 09:00 04/09/23 09:00 04/08/23 04:06 Oxygen Flow Rate (L/min) 2 Oxygen Delivery Method Room Air Weight: 92 kg Body Mass Index (BMI) 37.0 Intake & Output: Intake and Output for Last 24 Hours 04/07/23 04/08/23 04/09/23 23:59 23:59 23:59 Intake Total 1598.50 / 1598.50 1401.25 / 1401.25 250 / 250 Output Total 45 / 45 Balance 1553.50 / 1553.50 1401.25 / 1401.25 250 / 250 Lab / Micro Data 04/09/23 05:20 04/07/23 05:42 Labs: Laboratory Results - last 24 hr 04/09/23 05:20: WBC 5.6, RBC 3.21 L, Hgb 9.5 L, Hct 29.1 L, MCV 90.7, MCH 29.6, MCHC 32.6, RDW Std Deviation 45.4 H, RDW Coeff of Daphne 13.8, Plt Count 236, MPV 9.6 Micro: Microbiology 04/06/23 11:05 Tissue - Tibial Membrane Gram Stain - Final 04/06/23 11:05 Tissue - Tibial Membrane Wound Culture - Final No growth aerobically. 04/06/23 11:05 Tissue - Tibial Membrane Anaerobic Culture - Preliminary No growth in 48 hours. 04/06/23 11:00 Tissue - Femoral Membrane Gram Stain - Final 04/06/23 11:00 Tissue - Femoral Membrane Wound Culture - Final No growth aerobically. 04/06/23 11:00 Tissue - Femoral Membrane Anaerobic Culture - Preliminary No growth in 48 hours. 04/06/23 10:55 Tissue - Suprapatellar Pouch Gram Stain - Final 04/06/23 10:55 Tissue - Suprapatellar Pouch Wound Culture - Final No growth aerobically. 04/06/23 10:55 Tissue - Suprapatellar Pouch Anaerobic Culture - Preliminary No growth in 48 hours. Physical Exam Narrative Vital signs stable and afebrile. SCDs and BRUCE hose are in place bilaterally Patient is able to plantarflex and dorsiflex actively. Sensation is intact to light touch to saphenous, sural, superficial and deep peroneal, and tibial distribution. Wound VAC in place with no drainage and tubing or canister. There is minimal bloody drainage around the foam dressing distally. Negative Homans bilaterally, negative signs and symptoms of DVT. Const alert, oriented x3 and no apparent distress Assessment & Plan Assessment/Plan (1) Status post revision of total replacement of left knee: PLAN: 1. S/P revision left total knee replacement with removal of antibiotic spacer POD #3 2. Continue Pain Medications: Tylenol, meloxicam, oxycodone. Do not take any other nonsteroidal anti-inflammatories while using meloxicam/Mobic. Pain has been controlled on medications. 3. DVT Prophylaxis: Take 81 mg aspirin twice daily for 4 weeks postoperatively for DVT prophylaxis. Patient denies past history of DVT or pulmonary embolism 4. PT/OT: Weightbearing as tolerated with walker 5. H & H: 9.5/29.1, asymptomatic. Patient's hemoglobin has stabilized and actually slightly improved. Monitoring patient's hemoglobin and hematocrit withpostoperative anemia without any intra operative complications. Patient is currently on ferrous sulfate and folic acid. She had similar drop in hemoglobinafter her previous surgery. We will continue with oral medications at this timefor the postoperative anemia. Vital signs have been stable. No concern for transfusion at this time. 6. Reactive leukocytosis: Resolved currently 5.6, afebrile. Patient did receive Decadron intraoperatively 7. Postoperative wound drainage: Patient initially had a Prevena incisional wound VAC in which canister became full on 2 separate occasions. Wound nurse was consulted and she was placed in a regular wound VAC. We will continue with this with changes on Tuesday and . 75 mmHg continuous. Dependent upon discharge planning will determine type of wound VAC on discharge. There has been no further drainage in canister or tubing. 8. Continue postoperative medical management per medicine: O2 saturation has been stable on room air 9. Currently on doxycycline for 2 weeks postoperatively. Microbiology wound and tissue specimens were reviewed in chart and there is currently no growth or organisms seen today. I discussed with the patient potential side effects of doxycycline including sensitivity to the sunlight and increased risk of skin burn. Recommend patient take appropriate precautions. Also recommend patient to take probiotic while on the antibiotic. Patient voiced understanding agreement. 10. Encouraged Incentive Spirometry 11. Disposition: We are currently waiting on approval for discharge to transitional care unit. Patient has had extensive surgeries on her left knee. Patient also has 2 flights of stairs to attend to at home. She is in the basement. She is currently requiring a wound VAC due to postoperative drainage. She has worked with physical therapy and with contact-guard was walking 80 feetyesterday with increased pain. I do feel patient would benefit from fci facility upon discharge. We will continue to follow her hemoglobin. Continue with ferrous sulfate and folic acid at this time. Continue postoperative pain regimen. We will continue to monitor the wound VAC. Dressing change will occur on Tuesday by wound nurse. I have reviewed the [place] Automated Rx Reporting System (OARRS) report for this patient for refill pattern and other prescriber involvement as part of the appropriate surveillance for the provision of acute and chronic controlled medications. The report was requested and reviewed on the date of this entry and was considered in the prescribing process. This dictation was created using voice recognition software. Phonetic and/or grammatical errors may exist. 04/09/23 1051 <Electronically signed by Leonel ORTA PA-C> Cosigner Signature (if applicable): CC: ~ Signed [facility] Work Phone: 1(395) 439-910208-04-2023 Progress note Author Be Kulkarni [facility] April 08, 2023 1:59pm Note Date/Time April 08, 2023 8:2 5am [facility] Medical Records Department [address] [place] [address] Progress Note - Hospitalist 04/08/23 0824 MR#: [id number] Acct: [id number] Name: FRANCIE MORENO Rep #:[id number] : 1960 63 From: Be Kulkarni DO PCP: Dr. Duane Odom MD Status: ADM IN Location: MS3 [id number] Reason for Visit Reason for Visit: Diagnoses Presence of right artificial knee joint (04/06/23) Presence of left artificial knee joint (04/06/23) Subjective Subjective Leg feeling worse today after working with therapy and sitting in chair and getting back into bed. Objective Data Objective Data Vital Signs: Vital Signs Temp Pulse Resp BP Pulse Ox O2 Del Method O2 Flow Rate 36.2 C L 99 20 H 142/86 H 97 Room Air 2 04/08/23 04:45 04/08/23 04:45 04/08/23 04:45 04/08/23 04:45 04/08/23 04:45 04/08/23 04:45 04/08/23 04:06 Oxygen Flow Rate (L/min) 2 Oxygen Delivery Method Room Air Weight: 92 kg Body Mass Index (BMI) 37.0 Intake & Output: Intake and Output for Last 24 Hours 04/06/23 04/07/23 04/08/23 23:59 23:59 23:59 Intake Total 4173.67 / 4373.67 1598.50 / 1598.50 Output Total 45 / 45 Balance 4173.67 / 4373.67 1553.50 / 1553.50 Lab / Micro Data 04/08/23 05:40 04/07/23 05:42 Labs: Laboratory Results - last 24 hr 04/08/23 05:40: WBC 5.4, RBC 3.16 L, Hgb 9.4 L, Hct 28.5 L, MCV 90.2, MCH 29.7, MCHC 33.0, RDW Std Deviation 44.7 H, RDW Coeff of Daphne 13.7, Plt Count 222, MPV 9.5 Micro: Microbiology 04/06/23 10:55 Tissue - Suprapatellar Pouch Gram Stain - Final 04/06/23 10:55 Tissue - Suprapatellar Pouch Anaerobic Culture - Preliminary No growth in 48 hours. 04/06/23 11:00 Tissue - Femoral Membrane Gram Stain - Final 04/06/23 11:00 Tissue - Femoral Membrane Anaerobic Culture - Preliminary No growth in 48 hours. 04/06/23 11:05 Tissue - Tibial Membrane Gram Stain - Final 04/06/23 11:05 Tissue - Tibial Membrane Anaerobic Culture - Preliminary No growth in 48 hours. Physical Exam Const alert Constitutional Narrative: uncomfortable. tearful. Cardio S1 normal heart sound Extremity Extremity Narrative: wound vac dressing in place. Assessment & Plan Assessment/Plan (1) Status post revision of total replacement of left knee: PLAN: Patient had explant of left total knee and placement of articulating antibiotic spacer on 12/29/22. mgmt per orthopaedics ASA 81mg BID for VTE prophylaxis. on doxycycline. PLAN: Plan Chronic conditions: * CAD: s/p stent. on ASA. Statin-intolerant. * RA: biologics held * GERD * anemia of CD: Hg down from 13.6. Monitor. Blood sugars have been stable. No history of DM. Will dc insulin Medically stable for discharge. Will follow peripherally over the weekend. Charges/Coding Visit Charges Inpatient E&M: 93820 Subs Hosp L1 04/08/23 1354 <Electronically signed by Be Kulkarni DO> Cosigner Signature (if applicable): CC: ~ Signed [facility] Work Phone: [phone]) 785-730108-04-2023 Progress note Author Leonel Snow [facility] April 08, 2023 7:06am Note Date/Time April 08, 2023 7:[address] [facility] Medical Records Department [address] [facility] [place] [address] Progress Note - Orthopedic 04/08/23 0659 MR#: [id number] Acct: [id number] Name: FRANCIE MORENO Rep #:[id number] : 1960 63 From: Leonel ORTA PA-C PCP: Dr. Duane Odom MD Status: ADM IN Location: IA3 [id number] Subjective Subjective The patient was sitting in bed upon examination. Patient denies any chest pain,shortness of breath, dizziness, lightheadedness, nausea or vomiting, or calf pain. Pain is controlled on medications. No adverse overnight events. Patientstates she does have increased pain with weightbearing. Medications are helpful. She has been working with physical therapy and has walked 5 feet with contact-guard with pain increasing to 10/10. She has had wound VAC placed in which there has been no further drainage in the canister or tubing. Case management is currently involved with possible placement at transitional care unit. We are still waiting on approval. Objective Data Objective Data Vital Signs: Vital Signs Temp Pulse Resp BP Pulse Ox O2 Del Method O2 Flow Rate 97.2 F L 99 20 H 142/86 H 97 Room Air 2 04/08/23 04:45 04/08/23 04:45 04/08/23 04:45 04/08/23 04:45 04/08/23 04:45 04/08/23 04:45 04/08/23 04:06 Oxygen Flow Rate (L/min) 2 Oxygen Delivery Method Room Air Weight: 92 kg Body Mass Index (BMI) 37.0 Intake & Output: Intake and Output for Last 24 Hours 04/06/23 04/07/23 04/08/23 23:59 23:59 23:59 Intake Total 4173.67 / 4373.67 1598.50 / 1598.50 Output Total 45 / 45 Balance 4173.67 / 4373.67 1553.50 / 1553.50 Lab / Micro Data 04/08/23 05:40 04/07/23 05:42 Labs: Laboratory Results - last 24 hr 04/08/23 05:40: WBC 5.4, RBC 3.16 L, Hgb 9.4 L, Hct 28.5 L, MCV 90.2, MCH 29.7, MCHC 33.0, RDW Std Deviation 44.7 H, RDW Coeff of Daphne 13.7, Plt Count 222, MPV 9.5 Micro: Microbiology 04/06/23 11:05 Tissue - Tibial Membrane Gram Stain - Final 04/06/23 11:00 Tissue - Femoral Membrane Gram Stain - Final 04/06/23 10:55 Tissue - Suprapatellar Pouch Gram Stain - Final Physical Exam Narrative Vital signs stable and afebrile. Overnight patient did have drop in O2 saturation in which she was placed on nasal oxygen. She is currently at room air 97%. SCDs and BRUCE hose are in place bilaterally Patient is able to plantarflex and dorsiflex actively. Sensation is intact to light touch to saphenous, sural, superficial and deep peroneal, and tibial distribution. Wound VAC in place with no erythema around dressing. There is no drainage in canister or tubing. Negative Homans bilaterally, negative signs and symptoms of DVT. Const alert, oriented x3 and no apparent distress Assessment & Plan Assessment/Plan (1) Status post revision of total replacement of left knee: PLAN: 1. S/P revision left total knee replacement with removal of antibiotic spacer POD #2 2. Continue Pain Medications: Tylenol, meloxicam, oxycodone. Do not take any other nonsteroidal anti-inflammatories while using meloxicam/Mobic. Pain has been controlled on medications. 3. DVT Prophylaxis: Take 81 mg aspirin twice daily for 4 weeks postoperatively for DVT prophylaxis. Patient denies past history of DVT or pulmonary embolism 4. PT/OT: Weightbearing as tolerated with walker 5. H & H: 9.4/28.5, asymptomatic. Monitoring patient's hemoglobin and hematocrit with postoperative anemia without any intra operative complications. Patient is currently on ferrous sulfate and folic acid. She had similar drop inhemoglobin after her previous surgery. We will continue with oral medications at this time for the postoperative anemia. Vital signs have been stable. No concern for transfusion at this time. 6. Reactive leukocytosis: Resolved currently 5.4, afebrile. Patient did receive Decadron intraoperatively 7. Postoperative wound drainage: Patient initially had a Prevena incisional wound VAC in which canister became full on 2 separate occasions. Wound nurse was consulted and she was placed in a regular wound VAC. We will continue with this with changes on Tuesday and . 75 mmHg continuous. Dependent upon discharge planning will determine type of wound VAC on discharge. There has been no further drainage in canister or tubing 8. Continue postoperative medical management per medicine: Patient did have drop in O2 saturation overnight but does have history of sleep apnea. She is currently on room air doing well. 9. Currently on doxycycline for 2 weeks postoperatively. Microbiology wound and tissue specimens were reviewed in chart and there is currently no growth or organisms seen today. I discussed with the patient potential side effects of doxycycline including sensitivity to the sunlight and increased risk of skin burn. Recommend patient take appropriate precautions. Also recommend patient to take probiotic while on the antibiotic. Patient voiced understanding agreement. 10. Encouraged Incentive Spirometry 11. Disposition: We are currently waiting on approval for discharge to transitional care unit. Patient has had extensive surgeries on her left knee. She is currently requiring a wound VAC due to postoperative drainage. She has worked with physical therapy and with contact-guard was only able to walk 5 feetwith increased pain. I do feel patient would benefit from fci facility upon discharge. We will continue to follow her hemoglobin. Continue with ferrous sulfate and folic acid at this time. Continue postoperative pain regimen. I have reviewed the [place] Automated Rx Reporting System (OARRS) report for this patient for refill pattern and other prescriber involvement as part of the appropriate surveillance for the provision of acute and chronic controlled medications. The report was requested and reviewed on the date of this entry and was considered in the prescribing process. This dictation was created using voice recognition software. Phonetic and/or grammatical errors may exist. 04/08/23 0706 <Electronically signed by Leonel ORTA PA-C> Cosigner Signature (if applicable): CC: ~ Signed [facility] Work Phone: 1(354) 119-256608-03-2023 Progress note Author Be Kulkarni [facility] April 07, 2023 2:42pm Note Date/Time April 07, 2023 2:4 2pm [facility] Medical Records Department [address] [place] [address] Progress Note - Hospitalist 04/07/23 1431 MR#: [id number] Acct: [id number] Name: FRANCIE MORENO Rep #:[id number] : 1960 63 From: Be Kulkarni DO PCP: Dr. Duane Odom MD Status: ADM IN Location: [facility] [place] [id number] Reason for Visit Reason for Visit: Diagnoses Presence of right artificial knee joint (04/06/23) Presence of left artificial knee joint (04/06/23) Subjective Subjective Had increased drainage from her knee last night. Changed devices and drainage has slowed. Objective Data Objective Data Vital Signs: Vital Signs Temp Pulse Resp BP Pulse Ox O2 Del Method O2 Flow Rate 36.9 C 70 16 130/48 H 96 Room Air 2 04/07/23 14:07 04/07/23 14:18 04/07/23 14:07 04/07/23 14:07 04/07/23 14:07 04/07/23 14:18 04/06/23 23:32 Oxygen Flow Rate (L/min) 2 Oxygen Delivery Method Room Air Weight: 92 kg Body Mass Index (BMI) 37.0 Intake & Output: Intake and Output for Last 24 Hours 04/05/23 04/06/23 04/07/23 23:59 23:59 23:59 Intake Total 4173.67 / 4373.67 1598.50 / 1598.50 Output Total 45 / 45 Balance 4173.67 / 4373.67 1553.50 / 1553.50 Lab / Micro Data 04/07/23 05:42 04/07/23 05:42 Labs: Laboratory Results - last 24 hr 04/07/23 05:42: WBC 11.9 H, RBC 3.53 L, Hgb 10.4 L, Hct 32.5 L, MCV 92.1, MCH 29.5, MCHC 32.0, RDW Std Deviation 44.5 H, RDW Coeff of Daphne 13.3, Plt Count 320,MPV 9.5, Sodium 137, Potassium 3.5, Chloride 105, Carbon Dioxide 27.0, Anion Gap5, BUN 20 H, Creatinine 0.87, Estim Creat Clear Calc 51.67, Est GFR (MDRD) Af Amer 85, Est GFR (MDRD) Non-Af 70, BUN/Creatinine Ratio 23.1 H, Glucose 117 H, Calcium 8.8 Micro: Microbiology 04/06/23 11:05 Tissue - Tibial Membrane Gram Stain - Final 04/06/23 11:00 Tissue - Femoral Membrane Gram Stain - Final 04/06/23 10:55 Tissue - Suprapatellar Pouch Gram Stain - Final Radiography Diagnostic Testing: Radiology Impression Knee X-Ray 04/06/23 13:53 IMPRESSION: Status post total knee replacement of the constrained type. There is good positioning. Postoperative soft tissue changes. Electronically Signed: Raymon Marquez MD at 14:38 EDT , Physical Exam HEENT head/scalp atraumatic Resp normal respiratory effort, no retractions, no use of accessory muscles and clearto auscultation bilaterally Cardio regular rate, regular rhythm, S1 normal heart sound and S2 normal heart sound GI normal to inspection, nondistended, normoactive bowel sounds and soft to palpation Extremity Extremity Narrative: right knee with wound vac in place. Assessment & Plan Assessment/Plan (1) Status post revision of total replacement of left knee: PLAN: Patient had explant of left total knee and placement of articulating antibiotic spacer on 12/29/22. mgmt per orthopaedics ASA 81mg BID for VTE prophylaxis. on doxycycline. PLAN: Plan Chronic conditions: * CAD: s/p stent. on ASA. Statin-intolerant. * RA: biologics held * GERD * anemia of CD: Hg down from 13.6. Monitor. Charges/Coding Visit Charges Inpatient E&M: 66282 Subs Hosp L2 04/07/23 1442 <Electronically signed by Be Jopperi DO> Cosigner Signature (if applicable): CC: ~ Signed [facility] Work Phone: 1(651) 862-383008-03-2023 Progress note Author Leonel Palenciakaleighsophia [facility] April 07, 2023 11:35am Note Date/Time April 07, 2023 11: 33am [facility] Medical Records Department [address] [place] [address] Progress Note - Orthopedic 04/07/23 1126 MR#: [id number] Acct: [id number] Name: FRANCIE MORENO Rep #:[id number] : 1960 63 From: Leonel ORTA PA-C PCP: Dr. Duane Odom MD Status: ADM IN Location: IA3 [id number] Subjective Subjective The patient was sitting in bed upon examination. Patient denies any chest pain,shortness of breath, dizziness, lightheadedness, nausea or vomiting, or calf pain. Pain is controlled on medications. Patient states she is very tired today as she had very little sleep last night. There were complications with the Prevena incisional wound VAC. Canister became full and nursing placed a another Prevena incisional wound VAC. Wound nurse contacted orthopedics this morning and due to continued drainage she was placed on a regular wound VAC. She does have pain in the postoperative knee. Cultures/microbiology is currently pending. She is on postoperative antibiotics. Patient is inquiring about postoperative discharge to the transitional care unit as she was there after her last antibiotic spacer. Objective Data Objective Data Vital Signs: Vital Signs Temp Pulse Resp BP Pulse Ox O2 Del Method O2 Flow Rate 98.1 F 67 14 112/57 L 98 Room Air 2 04/07/23 10:04/07/23 10:04/07/23 10:04/07/23 10:04/07/23 10:04/07/23 10:04/06/23 23:32 Oxygen Flow Rate (L/min) 2 Oxygen Delivery Method Room Air Weight: 92 kg Body Mass Index (BMI) 37.0 Intake & Output: Intake and Output for Last 24 Hours 04/05/23 04/06/23 04/07/23 23:59 23:59 23:59 Intake Total 4173.67 / 4373.67 1511.25 / 1511.25 Output Total 45 / 45 Balance 4173.67 / 4373.67 1466.25 / 1466.25 Lab / Micro Data 04/07/23 05:42 04/07/23 05:42 Labs: Laboratory Results - last 24 hr 04/07/23 05:42: WBC 11.9 H, RBC 3.53 L, Hgb 10.4 L, Hct 32.5 L, MCV 92.1, MCH 29.5, MCHC 32.0, RDW Std Deviation 44.5 H, RDW Coeff of Daphne 13.3, Plt Count 320,MPV 9.5, Sodium 137, Potassium 3.5, Chloride 105, Carbon Dioxide 27.0, Anion Gap5, BUN 20 H, Creatinine 0.87, Estim Creat Clear Calc 51.67, Est GFR (MDRD) Af Amer 85, Est GFR (MDRD) Non-Af 70, BUN/Creatinine Ratio 23.1 H, Glucose 117 H, Calcium 8.8 Radiography Diagnostic Testing: Radiology Impression Knee X-Ray 04/06/23 13:53 IMPRESSION: Status post total knee replacement of the constrained type. There is good positioning. Postoperative soft tissue changes. Electronically Signed: Raymon Marquez MD at 14:38 EDT , Physical Exam Narrative Vital signs stable and afebrile. Wound VAC in place on the left knee with no drainage in the tubing or canister SCDs and BRUCE hose are in place bilaterally Patient is able to plantarflex and dorsiflex actively. Sensation is intact to light touch to saphenous, sural, superficial and deep peroneal, and tibial distribution. Negative Homans bilaterally, negative signs and symptoms of DVT. Const alert, oriented x3 and no apparent distress Assessment & Plan Assessment/Plan (1) Status post revision of total replacement of left knee: PLAN: 1. S/P revision left total knee replacement with removal of antibiotic spacer POD #1 2. Continue Pain Medications: Tylenol, meloxicam, oxycodone. Do not take any other nonsteroidal anti-inflammatories while using meloxicam/Mobic. 3. DVT Prophylaxis: Take 81 mg aspirin twice daily for 4 weeks postoperatively for DVT prophylaxis. Patient denies past history of DVT or pulmonary embolism 4. PT/OT: Weightbearing as tolerated with walker 5. H & H: 10.4/32.5, asymptomatic. Monitoring patient's hemoglobin and hematocrit with postoperative anemia without any intra operative complications. At this time no treatment is required. Estimated blood loss 100 mL with 2000 mLfluids. Will repeat lab work tomorrow 6. Reactive leukocytosis: Currently 11.9, afebrile. Patient did receive Decadron intraoperatively 7. Postoperative wound drainage: Patient initially had a Prevena incisional wound VAC in which canister became full on 2 separate occasions. Wound nurse was consulted and she was placed in a regular wound VAC. We will continue with this with changes on Tuesday and . 75 mmHg continuous. Dependent upon discharge planning will determine type of wound VAC on discharge. 8. Continue postoperative medical management per medicine 9. Encouraged Incentive Spirometry 10. Disposition: At this time patient will require postoperative physical therapy assessment and case management will be following. Appreciate recommendations from physical therapy. Patient will most likely require skillednursing facility versus home health. Due to complexity of surgery patient will require additional night in the hospital. We are attempting with possible approval to go to [facility]ci facility at the transitional care unit. She will continue with above medications. We will continue to follow her cultures. Repeat lab work tomorrow.. I have reviewed the [place] Automated Rx Reporting System (OARRS) report for this patient for refill pattern and other prescriber involvement as part of the appropriate surveillance for the provision of acute and chronic controlled medications. The report was requested and reviewed on the date of this entry and was considered in the prescribing process. This dictation was created using voice recognition software. Phonetic and/or grammatical errors may exist. 04/07/23 1133 <Electronically signed by Leonel ORTA PA-C> Cosigner Signature (if applicable): CC: ~ Signed ADDENDUM by MEAGHAN Snow on 04/07/23 at 1133 Addendum Added impression: 1. Currently on doxycycline for 2 weeks postoperatively. Microbiology wound and tissue specimens were reviewed in chart however currently pending.. I discussed with the patient potential side effects of doxycycline including sensitivity to the sunlight and increased risk of skin burn. Recommend patient take appropriate precautions. Also recommend patient to take probiotic while onthe antibiotic. Patient voiced understanding agreement. 04/07/23 2641<Electronically signed by Leonel ORTA PA-C> Cosigner Signature (if applicable): cc: ~* Signed [facility] Work Phone: 1(615) 980-305708-02-2023 Consult note Author Vicente Barrow [facility] April 06, 2023 9:03pm Note Date/Time April 06, 2023 9:0 3pm [facility] Medical Records Department [address] [place] [address] Consultation - Hospitalist 04/06/232050 MR#: [id number] Acct: [id number] Name: FRANCIE MORENO Rep #:[id number] : 1960 63 From: Vicente Lmi PCP: Dr. Duane Odom MD Status: ADM IN Location: [place] [address] Assessment & Plan Assessment/Plan (1) Status post total knee replacement, right: PLAN: Plan 1. 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 Richard. Continue perioperative antibiotic IV cefazolin. PT andOT. Incentive spirometry. Bowel and bladder care.Aspirin 81 mg twice daily as DVT prophylaxis by Dr. Richard 2. Coronary artery disease status post cardiac stent, hypertension and dyslipidemia: Patient on baby aspirin. Continue lisinopril. Not on statin due to intolerance. No acute or recent chest pain or anginal-like symptoms. 3. History of rheumatoid arthritis: No active issues. Patient was on biologic and methotrexate previously but currently he is not specific medication for rheumatoid arthritis. 4. Other comorbidities include seasonal allergies, GERD and morbid obesity and anemia of chronic disease: Patient BMI 37.1 kg/m?. Weight loss counseling done. Continue fexofenadine as needed. Patient is on ferrous sulfate and folic acid. 5. DVT prophylaxis -81 mg aspirin p.o. twice daily per orthopedic surgery HPI Consult Data Date of Consult: 04/06/23 HPI Narrative Reason for Consultation: Hospitalist consult for perioperative management of multiple, including cor HPI Narrative: FRANCIE MORENO, is a 63 F who is admitted after elective left revision TKR after prosthetic joint infection mostly due to Enterococcus faecalis had antibiotic spacer, completed 6 weeks of IV ampicillin as recommended by ID. Patient had left knee explant total knee replacement with placement of articulating antibiotic spacer on December 29, 2022. This time patient is admitted after revision of left TKR, removal of entire femoral and tibial implants with revision of entire femoral and tibial implants. Patient does not have chest pain pressure tightness or shortness of breath. Shehas chronic numbness of left foot. She has a small drain in her left operative region. Denies fever or chills. Patient voided urine spontaneously but is not passed flatus. [facility] Medical History Allergic rhinitis Ambulates with cane Anemia Anxiety Arthritis Atherosclerosis of coronary artery of [place] heart without angina pectoris Back pain Cardiology follow-up encounter Chronic headaches Debility Depression Essential hypertension Fibromyalgia Former smoker Gastroesophageal reflux disease History of non-ST elevation myocardial infarction (NSTEMI) (04/26/16) History of pain when walking Marijuana use Obesity ANN (obstructive sleep apnea) Osteoarthritis of both knees Rheumatoid arthritis Septic arthritis Shortness of breath on exertion Syncope Uses wheelchair Vitamin D deficiency Walker as ambulation aid Wears glasses Home Medications fexofenadine 60 mg tablet 60 mg PO DAILY PRN Allergies 06/11/20 [History Last Taken 06/25/21 08:00] acetaminophen 500 mg tablet 1,000 mg (2 x 500 mg) PO Q8 PRN Pain #90 tabs 05/27/21 [Rx Last Taken 06/25/21 15:00] ergocalciferol (vitamin D2) 1,250 mcg (50,000 unit) capsule 50,000 unit PO Mejia@1000 supplement 06/29/21 [History Last Taken Unknown] folic acid 1 mg tablet 1 mg PO DAILY supplement 12/22/22 [History Last Taken Unknown] lisinopril 10 mg tablet 20 mg PO DAILY blood pressure 12/22/22 [History Last Taken 04/06/23] duloxetine 30 mg capsule,delayed release 30 mg PO DAILY STOOL SOFTENER 30 days #30 caps 02/02/23 [Rx Last Taken Unknown] ferrous sulfate 325 mg (65 mg iron) tablet (FeroSul) 325 mg PO 1200,1700 LOW IRON 30 days #60 tabs 02/02/23 [Rx Last Taken Unknown] oxycodone 5 mg tablet 5 mg PO Q6H PRN PRN Pain Score 4-10 7 days #28 tabs 02/02/23 [Rx Last Taken Unknown] aspirin 81 mg tablet,delayed release (Adult Low Dose Aspirin) 81 mg PO DAILY BLOOD THIN 03/02/23 [History Last Taken 04/02/23] omeprazole 20 mg capsule,delayed release 20 mg PO DAILY GERD 03/02/23 [History Last Taken 04/06/23] tizanidine 4 mg tablet 4 mg PO QHS SLEEP 03/02/23 [History Last Taken Unknown] cefadroxil 500 mg capsule 500 mg PO TID UTI 04/01/23 [History Last Taken Unknown] Allergy/AdvReac Type Severity Reaction Status Date / Time No Known Allergies Allergy Verified 04/06/23 07:53 Family History Mother Hypertension CVA (cerebral vascular accident) Sister Cancer Father Heart disease Surgical History History of cardiac catheterization History of coronary artery stent placement (04/26/16) History of total left knee replacement (2020) History of total right knee replacement Hx of colonoscopy Status post incision and drainage Social History household members: children Smoking Status: Former smoker how long ago did patient quit smokin years ago alcohol intake: current alcohol intake frequency: holidays/special occasions only substance use type: does not use caffeine: Yes Type: carbonated beverages and coffee ROS ROS Narrative Constitutional: No acute systemic symptoms including headache. Mild chronic fatigue. No fever. HEENT: Reports systems reviewed and no addt'l complaints, except as documented Respiratory/Chest: No acute shortness of breath or respiratory distress or wheezing. CVS: History of coronary artery disease. No recent angina or chest pain or pressure. Gastrointestinal: Denies coffee ground emesis, hematemesis or vomiting Genitourinary: Voided urine spontaneously. Denies burning urination or new urinary tract symptoms Musculoskeletal: Left prosthetic joint infection and left TKR as described in HPI. Neurologic: Denies seizure-like symptoms. skin: Left TKR operative surgery. Endocrinology: Reports systems reviewed and no addt'l complaints, except as documented Hematologic/Lymphatic: Reports systems reviewed and no addt'l complaints, exceptas documented Rest 14 ROS are negative except as mentioned in HPI Physical Exam Narrative General: Alert, Oriented x3, Cooperative HEENT: Atraumatic, PERRLA, EOMI, Normocephalic Oral: Oral mucosa moist. No Gingival or Mucosal Lesions/ Ulcerations Neck: Supple, No JVD, Negative Carotid Bruits Lungs: Air entry diminished in bilateral lung bases. No crepitation/rhonchi Cardiovascular: Regular rate, Regular Rhythm, Normal S1, Normal S2, No murmurs Abdomen: Bowel Sounds Present, Soft, Non Tender, Non-Distended : No renal angle tenderness. No suprapubic tenderness. Extremities: No edema, Capillary Refill Less than 3 Seconds Skin: No rashes, No breakdown except operative surgery in left TKR Musculoskeletal: Revision left TKR, surgical dressing is dry. Small drain with sanguinous collection. No acute tenderness in other joints or extremities. Neurological: Cranial nerves II-XII grossly intact, DTR 2+/4. No acute focal neurological deficit. Psych/Mental Status: Normal Affect, Appropriate. Lab / Micro Data Labs: Laboratory Results - last 24 hr 04/06/23 08:15: POC Glucose 99 Radiology Impression Knee X-Ray 04/06/23 13:53 IMPRESSION: Status post total knee replacement of the constrained type. There is good positioning. Postoperative soft tissue changes. Electronically Signed: Raymon Marquez MD at 14:38 EDT , Charges/Coding Visit Charges Office Visits / Consults: 24242 IP Consult L4 04/06/232102 <Electronically signed by Vicente Barrow MD> Cosigner Signature (if applicable): CC: Dr. Duane Odom MD; Dr. Vicente Barrow MD~ Signed [facility] Work Phone: 1(760) 162-876608-02-2023 [facility] History and physical note [facility] March 15, 2023 5:36pm Note Date/Time March 15, 2023 5:[address] [facility] Medical Records Department [address] [place] [address] History & Physical Exam 03/15/23 173 MR#: [id number] Acct: [id number] Name: FRANCIE MORENO Rep #:[id number] : 1960 63 From: Leonel ORTA PA-C PCP: Dr. Duane Odom MD Status: PRE IN Location: [facility] History and Physical History and Physical? Patient Name: Francie Moreno : 1960 From:? LEONEL SNOW PA-C? DATE OF SURGERY:? 03/23/2023 SCHEDULED PROCEDURE:? Left knee Removal antibiotic spacer, total knee arthroplasty HISTORY OF PRESENT ILLNESS: Preoperative history and physical exam was performed on March 14, 2023.? This is a 63-year-old female who has extensive history of left knee surgery.? Patient recently by Dr. Otf Richard underwent a left knee explant total knee replacement with placement of articulating antibiotic spacer on December 29, 2022.?Patient initially had her previous primary left total knee arthroplasty by Dr. Lalit Charles on June 26, 2021.? Patient had progressively worsening symptoms in which x-rays revealed evidence of loosening.? Patient had initial aspiration in which she had positive criteria for intra-articular white blood cell count, PM and percentages, positive alpha defense and increased CRP.? She had positive cultures for Enterococcus faecalis.? Patient postoperatively after the antibiotic spacer was placed on 6 weeks of IV ampicillin.? She was followed by infectious disease.? She did go to the transitional care unit postoperativelyfor recovery.? Patient has been partial weightbearing on the left lower extremity.? She has had recent aspiration by Dr. Otf Richard which did not show any infection lab work.? Patient has medical history pertinent for rheumatoid arthritis, fibromyalgia, coronary artery disease, previous heart attack and stent placement, hypercholesterolemia, sleep apnea without use of CPAP, previous anemia.? While in the hospital patient utilized oxygen overnight due to her sleep apnea.? After discussion with Dr. Otf Richard, the patient does wish to proceed with a left knee removal antibiotic spacer to total knee arthroplasty.? Patient currently denies any chest pain, shortness of breath, fevers chills.? Patient has had previous clearance in December 2022 by cardiologistDr. Graves.? There is been no change in medical history.? No recent chest pain orshortness of breath. REVIEW OF SYSTEMS: ROS: Const: Reports weight change, but denies change in appetite and fever. CV: Denies chest pain, heart murmur and irregular heartbeat. Resp: Denies cough, pneumonia, shortness of breath, tuberculosis and wheezing. GI: Reports diarrhea, but denies constipation, heartburn, nausea, rectal itching, bloody stools and vomiting. : Denies incontinence. Musculo: Reports gait disturbance, leg swelling, pain, trouble walking and weakness. Skin: Reports tattoo, but denies Raynaud's and history of shingles. Neuro: Reports dizziness but denies ambulatory dysfunction, numbness/tingling and tremor. Psych: Reports anxiety, insomnia and stress. Myles/Lymph: Reports anemia, bleeding/bruising tendency and past transfusion. Reviewed, no changes. PAST MEDICAL HISTORY: Advance Care Plan: No Advance Directives Effective Date: 05/14/2020 PMH: Medical Problems: Arthritis - Rheumatoid? Coronary Artery Disease (CAD), Depression, Fibromyalgia, Heart Attack, Hypercholesterolemia, Osteoporosis, Sleep Apnea Covid-19 Vaccinated - (12/11/2020) (01/08/2021) Borderline Anemic - (01/2022) Accidents: RT Ankle - (2018) Surgical Hx: Heart Stent - (2015) RT Total Knee Replacement - (12/01/2020) EDMAR @ [facility] LT Knee, Total Joint Replacement - (06/26/2021) Dr Juan Charles @ [facility] Left Knee Revision W/ Abx Placement - (12/29/2022) DR. RICHARD @ [facility]? Anesthesia Complications: None Assistive Devices: Glasses, Cane, Walker Reviewed, no changes. SOCIAL HISTORY: SH: Marital: Single.Occupation: Disabled - (2017).Work Status: Disabled.Hand Dominance: Right-handed. Personal Habits:? Cigarette Use: Former.Smokeless Tobacco: Never Used Smokeless Tobacco.E-Cigarette Use: Never used.Alcohol: Has consumed alcohol in the past.Drug Use: Medical Marijuana Card.Enjoy Exercising: Never Exercises. Reviewed, no changes. VITALS: Ht: 62 Wt: 199lb Wt k.266 BMI: 36.4 BP: 130/78 Pulse: 104 Resp: 18 T: 97.1T: 36.2C Pain Level: 0 O2SatR: 98 ALLERGIES: No Known Drug Allergy? MEDICATIONS: Ferrous Sulfate 325 (65 Fe) MG take 1 tablet by mouth twice a day, Tizanidine HCL 4 mg 1 po qd at night, Vitamin D2 2000 Unit 1 po weekly, Tylenol Extra Strength 500 mg as needed, Allie Allergy 60 mg as needed, Lisinopril 20 mg 1 by mouth every day, Aspirin 81 mg once daily, Ensure Plus High Protein? 120 ml daily PRE-OP EXAM:? General appearance:NORMAL? ? ? Other: Eyes: Conjunctivae and lids: NORMAL? Pupils: ERR Ears, Nose, Mouth, and Throat: NORMAL? Other: Inspection of lips, teeth and gums: NORMAL? ?Other: Neck: Examination of neck: no masses noted. Respiratory: Assessment of respiratory effort: NORMAL? ?Other: ?Auscultation of lungs: clear to auscultation no wheezes, rhonchi or rales. Cardiovascular:? Auscultation of heart: regular rate and rhythm, no murmurs, gallops or rubs. PHYSICAL EXAMINATION: Patient is currently partial weightbearing.? Previous left knee incision is well-healed without any erythema.? Range of motion lacks 5 full extension to 90 flexion.? Sensation intact to light touch. IMPRESSION: 1.? Left knee antibiotic spacer 2.? Rheumatoid arthritis 3.? Coronary artery disease 4.? Previous heart attack and stent placement 5.? Depression 6.? Fibromyalgia 7.? Hypercholesterolemia 8.? Osteoporosis 9.? Sleep apnea without use of CPAP 10.? History of anemia PLAN: Dr. Otf Richard did discuss and review with the patient all treatment options including surgical versus nonsurgical options.? Patient does wish to proceed with the above-stated procedure.? Potential risks, benefits, and complications of the procedure were discussed in detail including but not limited to , infection, nerve and blood vessel damage, persistent pain, numbness, tingling, paresthesias, blood clot, pulmonary embolism, and requirement for possible further surgery.? The patient expressed full understanding and has no further questions for the doctor.? Patient does agree to proceed with the above-stated procedure and has signed the surgery consent form. POST-OP MEDICATION PLAN: Pain Medications: We will avoid nonsteroidal anti-inflammatories postoperativelydue to past history of cardiac disease.? Patient reports that she is not able totake nonsteroidal anti-inflammatories. DVT Prophylaxis:? Aspirin 81 mg twice daily for 4 weeks postoperatively.? Deniespast history of DVT or pulmonary embolism This dictation was created using voice recognition software. Phonetic and/or grammatical errors may exist. ___? I have re-examined the patient.? There are no clinical changes since date of exam. ___? See progress notes for changes. ___? Dictated on admission Date: ? ? ?Time: Signature: 03/15/23 7926 <Electronically signed by Leonel ORTA PA-C> Cosigner Signature (if applicable): CC: MEAGHAN Snow; Dr. Duane Odom MD~ Signed [facility] Work Phone: 1(560) 121-766606-21-2023 History of Present illness Narrative* Shelly Su MD - 02/23/2023 12:02 PM EDT VIRTUAL VISIT PROGRESS NOTE This is a virtual visit using Language123 video visit. It required patient-provider interaction for themedical decision making as documented below. I have communicated my name and active licensure. The patient's identity and physical location wereverified at the time of this visit. Either the patient or their legal automotive sales representative has been informed of the risks and benefits of -- and alternatives to -- treatment through a remote evaluation andconsents to proceed with the evaluation remotely. Francie Moreno is a 63 year old female seen for RA. Not on MTX due to prosthetic joint infection. Taking folic acid. was On abx. Was in hosp x 6 weeks.IV. Had temporary abx spacer. PT/OT helped. Had reaction to inflectra. Dose was changed and it went okay first time. Second infusion - heart beating fast, face turned red. Throat closing up She wants to try medical marijuana. Reports redness on face, hot flashes, multiple bowel movements, rib cage discomfort. Also takes Cymbalta. She feels more fatigue, lightheaded. She was told that she has anemia and started iron tabs. Also takes vit B12, vit D Tingling in body and chest heaviness with second infusion. throat closing. Received IV benadryl. Advised slower infusion and with pre meds.they restarted slower infusion and she did well. She gets her infusion at [facility]. 3rd infusion 11/09/2021 (10 min in) got heaviness in chest but not as bad as before. Improved with eating/drinking. Then felt fibro flared up on lateral side of hips, hand pain lasted 1/2 day On Cymbalta 60 mg for fibromyalgia, depression (lost best friend 10/2021). More hair loss. Also diagnosed with ANN Changed from Actemra to Inflectra IV 5mg/kg/dose week 0,2,6 and then every 8 weeks 07/20/2021 was first infusion d/t possible gut perforation from Actemra HCQ made her feel sick, nausea, d/c Left TKR 06/26/2021 right TKR 12/01/20 Had total left knee replacement 06/26/20[facility] [address]. Charles. Hgb 7, had blood transfusion Was on Actemra IV 10/2018-04/2021. Stopped d/t with recent ileal focal erosions and concern for gut perforation. CAD stent 2015 Brief Rheumatological history - Patient was diagnosed with RA 2 years ago - MTX gave nausea after one month, Humira every other wek and then very week for 5 months - did not help. She has been on prednisone for 2 years and would like to be off of it completely. Sh is unable to walk when she is of prednisone. Hr last visit with sole assessor was in . She also has BMD, x rays, blood work in apr. She was also presribed SSZ which did not help. Had steroid injection. Leflunamide did not hlp RA involved knees and hands. At present she reports swelling of knees. On prednisone She also has fibromyalgia and reports sharp pain with every step. tail bone pain H/o MN in 2016. episodes of dizziness and was on Holter monitor. Poor historian. She will be seeing ortho next week for ankle injury. In the first visit, She had a knee aspiration performed. Synovial fluid was inflammatory.Continue to have active synovitis despite and brittle and also local reaction. [facility] however she failed to show up for the infusion. Family history of autoimmune disease: aunt and [...] No PSYCHIATRIC: Anxiety: No Poor sleep: No HISTORY REVIEWED (electronic chart updated): PAST MEDICAL HISTORY Diagnosis Date Coronary artery disease Fibromyalgia Osteoarthritis PMH - PAST MEDICAL HISTORY OF depression Rheumatoid arthritis (HCC) PAST SURGICAL HISTORY Procedure Laterality Date BIOPSY BREAST 2002 fibroadenoma CC PCI CORONARY INTERVENT LAPS ABD PRTM&OMENTUM DX W/WO SPEC BR/WA SPX Laparoscopy lysis of adhesions LIG/TRNSXJ FLP TUBE ABDL/VAG APPR UNI/BI Tubal ligation PAST SURGICAL HISTORY OF 08/2011 colonoscopy- bleeding ulcer PAST SURGICAL HISTORY OF Right Total right knee replacement PAST SURGICAL HISTORY OF Left Total left knee replacement UPPER GI FAMILY HISTORY Problem Relation Age of Onset Heart Father Breast Cancer Paternal Aunt other (kidney cancer) Paternal Aunt other (brain cancer) Sister Social History Tobacco Use Smoking status: Former Packs/day: 0.50 Types: Cigarettes Quit date: 04/22/2016 Years since quittin.8 Smokeless tobacco: Never Vaping Use Vaping Use: Never used Substance Use Topics Alcohol use: Yes Comment: rarely Drug use: Yes Types: Marijuana Comment: Medical Marijuana Card Current Outpatient Medications Medication Sig folic acid 1 mg tablet TAKE 1 TABLET BY MOUTH EVERY DAY ergocalciferol 50,000 unit capsule (VITAMIN D2, DRISDOL) TAKE 1 CAPSULE BY MOUTH ONE TIME PER WEEK OTC NUTRITIONAL SUPPLEMENT Take 1 Cap-Full by mouth once daily. Multi-GI 5 PO one capful daily mv-mn/folic ac/calcium/vit K1 (WOMEN'S 50 PLUS MULTIVITAMIN ORAL) Take 1 tablet by mouth once daily. biotin 5,000 mcg subl Dissolve 1 tablet under the tongue once daily. lisinopril (ZESTRIL, PRINIVIL) 10 mg tablet Take 20 mg by mouth once daily. tiZANidine (ZANAFLEX) 4 mg tablet Take 4 mg by mouth every 6 hours as needed. Acetaminophen 500 mg cap Take by mouth as needed. aspirin, enteric coated (ASPIRIN, ENTERIC COATED) 81 mg EC tablet Take 81 mg by mouth once daily. fexofenadine (ALLIE) 180 mg tablet Take 180 mg by mouth once daily. omeprazole (PRILOSEC) 20 mg capsule Take 20 mg by mouth once daily. No current facility-administered medications for this visit. ALLERGIES Allergen Reactions Mold Other: See Comments sneezing/sinus infections Pollen Itching REVIEW OF SYSTEMS: All other ROS: negative As noted in HPI PHYSICAL EXAMINATION: VIDEO EXAM: (if completed, performed via video enabled technology) GENERAL: alert and appropriate, in no distress, well-hydrated, well nourished, and happy, smiling, interactive ASSESSMENT: (M05.79) Rheumatoid arthritis of multiple sites without organ or system involvement with positive rheumatoid factor (HCC) (primary encounter diagnosis) (Z79.899) High risk medication use (M54.50) Low back pain, unspecified back pain laterality, unspecified chronicity, unspecified whether sciatica present PLAN: 61-year-old female is here for follow up. Patient was previously diagnosed with rheumatoid arthritis and has been on methotrexate, Humira, leflunomide, Orencia, Enbrel and sulfasalazine without much benefit. Joints are predominantly involved. Knee joint was aspirated in the first visit and Synovialfluid was inflammatory. Was on Actemra IV from 10/2018 until 04/2021, found to have ileal focal erosions, would like to stop Actemra given potential complications of gut perforation. Started Renflexis, 07/20/2021 and overall doing well. No loading dose? Severe nausea on HCQ, ok to d/c. Has had bl TKR. PCP started on Cymbalta which is helping with pain, fibromyalgia and depression which had made her more tired on this. Fatigue could be multifactorial - ANN, meds related, anemia, OA Adverse effect to inflectra. Will dc. May consider dmard again or Rinvoq/xeljanz. Left knee warm and swollen. Post surgical. X ray since she reported fall and more pain since last week. Otherwise RA stable. Advised starting MTX, may not need biologics. Risks and benefits discussed. Advised shoulder exercises., neck, tail bone for OA. holding off of any RA meds due to prosthetic joint infection. May try SSZ if needed. May consider shoulder injection. There are no Patient Instructions on file for this visit. I spent a total of 20 minutes on the date of the service which included preparing to see the patient, rxhm-to-dsob patient care, completing clinical documentation, obtaining and/or reviewing separately obtained history, performing a medically appropriate examination, communicating with other HCPs (n ot separately reported), and communicating results to the patient/family/caregiver Shelly Su MD [facility] on 02/23/23 XR LUMBAR GENERAL 3V AP/LAT/L5-S1 XR SACROILIAC JOINTS 2V AP PELVIS/FERGUESON No orders of the defined types were placed in this encounter. Platform used - my [facility] Baires [facility] February 02, 2023 8:51am Note Date/Time February 02, 2023 8:47a m [facility] Medical Records Department [address] [place] [address] Discharge Summary 02/02/23 0846 MR#: [id number] Acct: [id number] Name: FRANCIE MORENO Rep #:[id number] : 1960 62 From: Toro Baires MD PCP: Dr. Duane Odom MD Status: ADM IN Location: [place] [address] Providers Date of Admission: 12/31/22 Primary Care Physician: Dr. Duane Odom MD Consultations 12/31/22 15:44 Consult: Infectious Disease Routine Consulting Provider: Gerald Balbuena Reason for Consult: Left PJI s/p explant TKA ATB spacer placement. EMERGENT Consult: No MD Notified: Yes Date Notified: 01/03/23 Time Notified: 09:11 Method of Notification: Verbal Reason For Visit: EXPLANT TOTAL KNEE IMPLATS LT, PLACE SPACER Diagnosis Discharge Diagnosis (1) Debility: Status: Acute Code(s): R53.81 - Other malaise (2) Infected prosthetic knee joint: Status: Acute Code(s): T84.59XA - Infection and inflammatory reaction due to other internal joint prosthesis, initial encounter; Z96.659 - Presence of unspecified artificial kneejoint (3) Rheumatoid arthritis: Status: Acute Code(s): M06.9 - Rheumatoid arthritis, unspecified (4) Coronary artery disease: Status: Acute Code(s): I25.10 - Atherosclerotic heart disease of [place] coronary artery without angina pectoris (5) History of non-ST elevation myocardial infarction (NSTEMI): Status: Resolved Code(s): I25.2 - Old myocardial infarction (6) Obstructive sleep apnea: Status: Acute Code(s): G47.33 - Obstructive sleep apnea (adult) (pediatric) (7) Anemia: Status: Acute Code(s): D64.9 - Anemia, unspecified (8) Depression: Status: Acute Code(s): F32.A - Depression, unspecified (9) Fibromyalgia: Status: Acute Code(s): M79.7 - Fibromyalgia (10) Hyperlipidemia: Status: Acute Code(s): E78.5 - Hyperlipidemia, unspecified (11) Osteoporosis: Status: Acute Code(s): M81.0 - Age-related osteoporosis without current pathological fracture Plan 62 year old female with below past medical history 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 Richard, admitted to TCU with debility, here for rehabilitation, strengthening, intravenous antibiotics, priorto discharge home with daughter. * Debility - PT/OT. * Pain - Tylenol 1000mg q6h prn pain (1-3), Oxycodone 5-10mg q4h prn pain (4- 10). * Bowel - senna/colace 2 tablets bid prn, MOM 30ml po x 1 prn, Loperamide 2mg q2h prn, 2mg qhs. * Adult immunization - Administer pneumonia vaccine, covid19 vaccine, flu vaccine as appropriate. * DVT prophylaxis - Aspirin 81mg bid thru 01/26/2023. 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 Balbuena's help. * GI prophylaxis - Lactobacillus 1 tablet bid. * Vitamin D deficiency - D 1.25mg per week. * Iron deficiency anemia - Ferrous sulfate 325mg bid. * Folate deficiency - Folic acid 1mg daily. * Coronary artery disease - Lisinopril 20mg daily * Allergic rhinitis - Loratadine 10mg daily prn * GERD - Pantoprazole 40mg daily. * Muscle spasm - Tizanidine 4mg qhs. 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 * Nutrition - Ensure Plus 120ml tidcm. * Tinea Corporis - Nystatin powder topical bid. * Nausea - Zofran 8mg q8h prn. Medications at Discharge Home Medications fexofenadine 60 mg tablet 60 mg PO DAILY PRN Allergies 06/11/20 acetaminophen 500 mg tablet 1,000 mg PO Q8 PRN Pain #90 tabs 05/27/21 ergocalciferol (vitamin D2) 1,250 mcg (50,000 unit) capsule 50,000 unit PO Mejia@1000 supplement 06/29/21 folic acid 1 mg tablet 1 mg PO DAILY supplement 12/22/22 lisinopril 10 mg tablet 20 mg PO DAILY blood pressure 12/22/22 duloxetine 30 mg capsule,delayed release 30 mg PO DAILY 30 days #30 caps 02/02/23 ferrous sulfate 325 mg (65 mg iron) tablet (FeroSul) 325 mg PO 1200,1700 30 days#60 tabs 02/02/23 oxycodone 5 mg tablet 5 mg PO Q6H PRN PRN Pain Score 4-10 7 days #28 tabs 02/02/23 Hospital Course Operations - (See below.) Procedures None Summary of Care Provided Minutes Spent on Discharge: 35 Hospital Course: 62 year old female with below past medical history 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 Richard, admitted to TCU with debility, here for rehabilitation, strengthening, intravenous antibiotics, priorto discharge home with daughter. Discharge home with daughter 02/10/2023, No needs. Physical Exam Const alert General Appearance: cooperative HEENT normocephalic Eyes PERRL and EOMs intact bilaterally Neck supple, no JVD and no carotid bruits Resp normal respiratory effort, normal air movement and clear to auscultation bilaterally Cardio regular rate and regular rhythm GI normal to inspection, nondistended, normoactive bowel sounds, non-tender and non-distended Extremity normal capillary refill General Extremity: Negative for edema Skin no rashes or lesions noted General Skin Exam: no breakdown Psych affect normal Appearance: appropriate Weight / BMI Weight Weight: 90.378 kg Body Mass Index (BMI) 36.4 ABG / Lab / Microbiology Data Result Diagrams: 01/29/23 06:37 01/29/23 06:37 Microbiology: Microbiology 01/04/23 07:26 Nasal Secretion SARS-CoV-2 Antigen (Rapid) - Final 01/02/23 05:25 Nasal Secretion SARS-CoV-2 Antigen (Rapid) - Final D/C Instructions Discharge Diet: No restrictions Discharge Activity: Return to Normal Activity, May Shower and Use Walker Weight Bearing Status: Weight bearing as tolerated Call your doctor if you observe: Fever of 101 or Higher, Inability to urinate, Inability to have a bowel movement, Shortness of breath, Dizziness, Fainting spells, Swelling in the ankles, Chest pain and Uncontrolled pain Additional Instructions: Discharge home with daughter 02/10/2023, No needs. Please Follow Up With: Otf Richard MD When: As scheduled. Meaningful Use Info Meaningful Use Diagnoses (Choose all that apply): None applicable Discharge Plan Admission Admit Date/Time: 12/31/22 14:34 Primary Reason for Your Visit: Debility. Attending Provider: Toro Baires Chi Primary Care Provider: Duane Odom Consulting Providers: Gerald Balbuena Instructions Additional Instructions / Restrictions: Discharge home with daughter 02/10/2023, No needs. Discharge Orders/Prescriptions Prescriptions: New ferrous sulfate [FeroSul] 325 mg (65 mg iron) Tablet 325 mg PO 1200,1700 30 Days Qty: 60 0RF oxycodone 5 mg Tablet 5 mg PO Q6H PRN PRN (Reason: Pain Score 4-10) 7 Days Qty: 28 0RF duloxetine 30 mg Capsule,Delayed Release(Dr/Ec) 30 mg PO DAILY 30 Days Qty: 30 0RF Continued fexofenadine 60 MG tablet 60 mg PO DAILY PRN (Reason: Allergies) acetaminophen 500 mg Tablet 1,000 mg PO Q8 PRN (Reason: Pain) Qty: 90 0RF ergocalciferol (vitamin D2) 50,000 UNIT capsule 50,000 unit PO Mejia@1000 folic acid 1 mg Tablet 1 mg PO DAILY lisinopril 10 mg tablet 20 mg PO DAILY Discontinued tizanidine 4 mg tablet 4 mg PO QHS Label Comments: TAKE 1 TABLET BY MOUTH AT BEDTIME NEEDED oxycodone 5 mg Tablet 5 - 10 mg PO Q4H PRN PRN (Reason: Pain Score 4-10) 7 Days Qty: 30 0RF sennosides-docusate sodium [Stool Softener-Stimulant Laxat] 8.6-50 mg tablet 2 tab PO BID Rx Instructions: Take until first bowel movement, then as needed pantoprazole 40 mg tablet,delayed release (DR/EC) 40 mg PO DAILY ferrous sulfate [FeroSul] 325 mg (65 mg iron) tablet 325 mg PO 1200,1700 ampicillin sodium 2 gram recon soln 2 g IV Q6 Rx Instructions: stop date 02/09/23 dx: prosthetic joint infection weekly bmp, cbc, and esr. Fax to [phone] aspirin 81 mg tablet,chewable 81 mg PO BIDCM Rx Instructions: Take 81 mg aspirin twice daily for 4 weeks postoperatively for DVT prophylaxis. Referrals / Follow Up: Duane Odom MD [Primary Care Provider] - Disposition Disposition (needs filled in before D/C Order can be placed): Home, Self Care 02/02/23 0851 <Electronically signed by Toro Baires MD> Cosigner Signature (if applicable): CC: Dr. Duane Odom MD; Dr. Toro Baires MD~ Signed [facility] Work Phone: 1(850) 663-409305-22-[address] Baires [facility] January 24, 2023 7:33pm Note Date/Time January 24, 2023 7:33p [facility] Medical Records Department [address] [place] [address] Progress Note - [facility] 01/24/231926 MR#: [id number] Acct: [id number] Name: FRANCIE MORENO Rep #:[id number] : 1960 62 From: Toro Baires MD PCP: Dr. Duane Odom MD Status: ADM IN Location: [place] [address] Subjective Subjective Resident seen, examined for regulatory visit. Her only complaint is morning diarrhea, 4-5 episodes, appreciate Dr. Balbuena has addressed with scheduled imodium at bedtime. She is otherwise doing well, looking forward to being done with antibiotics, and having prosthetic knee implanted. Objective Data Objective Data Vital Signs: Vital Signs Temp Pulse Resp BP Pulse Ox O2 Del Method 96.9 F L 84 16 159/76 H 98 Room Air 01/24/23 16:00 01/24/23 16:00 01/24/23 16:00 01/24/23 16:00 01/24/23 16:00 01/24/23 16:00 Oxygen Delivery Method Room Air Weight: 91.036 kg Body Mass Index (BMI) 36.7 Intake & Output: Intake and Output for Last 24 Hours 01/22/23 01/23/23 01/24/23 23:59 23:59 23:59 Intake Total 990 / 990 870 / 870 870 / 870 Balance 990 / 990 870 / 870 870 / 870 Lab / Micro Data Result Diagrams: 01/22/23 05:50 01/22/23 05:50 Micro: Microbiology 01/04/23 07:26 Nasal Secretion SARS-CoV-2 Antigen (Rapid) - Final 01/02/23 05:25 Nasal Secretion SARS-CoV-2 Antigen (Rapid) - Final Physical Exam Const alert General Appearance: cooperative HEENT normocephalic Eyes PERRL and EOMs intact bilaterally Neck supple, no JVD and no carotid bruits Resp normal respiratory effort, normal air movement and clear to auscultation bilaterally Cardio regular rate and regular rhythm GI normal to inspection, nondistended, normoactive bowel sounds, non-tender and non-distended Extremity normal capillary refill Extremity Narrative: Right upper extremity PICC line, left knee immobilizer. 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 Richard, admitted to TCU with debility, here for rehabilitation, strengthening, intravenous antibiotics, priorto discharge home with daughter. * Debility - PT/OT. * Pain - Tylenol 1000mg q6h prn pain (1-3), Oxycodone 5-10mg q4h prn pain (4- 10). * Bowel - senna/colace 2 tablets bid prn, MOM 30ml po x 1 prn, Loperamide 2mg q2h prn, 2mg qhs. * Adult immunization - Administer pneumonia vaccine, covid19 vaccine, flu vaccine as appropriate. * DVT prophylaxis - Aspirin 81mg bid thru 01/26/2023. 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 Balbuena's help. * GI prophylaxis - Lactobacillus 1 tablet bid. * Vitamin D deficiency - D 1.25mg per week. * Iron deficiency anemia - Ferrous sulfate 325mg bid. * Folate deficiency - Folic acid 1mg daily. * Coronary artery disease - Lisinopril 20mg daily * Allergic rhinitis - Loratadine 10mg daily prn * GERD - Pantoprazole 40mg daily. * Muscle spasm - Tizanidine 4mg qhs. * Depression - Duloxetine 30m daily, stable chronic prison use, GDR not recommended. * Nutrition - Ensure Plus 120ml tidcm. * Tinea Corporis - Nystatin powder topical bid. * Nausea - Zofran 8mg q8h prn. Capacity Capacity Assessment Tool Can the patient make a choice & communicate that choice?: Yes Can the patient understand benefits, risks and alternatives?: Yes Can the patient make a logical, rational choice?: Yes Is the choice the patient makes consistent w/ their values?: Yes Is there an impending, emergent risk to the patient?: No Does the patient have an Advance Directive?: No Is there a Surrogate Available?: No i.e. HCPOA: No i.e. close relative (spouse, child, parent, sibling)?: Yes 01/24/231932 <Electronically signed by Toro Baires MD> Cosigner Signature (if applicable): CC: ~ Signed [facility] Work Phone: 1(851) 304-771105-22-[address] Balbuena [facility] January 24, 2023 1:48pm Note Date/Time January 24, 2023 1:48p m [facility] Medical Records Department [address] [place] [address] Progress Note - Infect Disease 01/24/23 1346 MR#: [id number] Acct: [id number] Name: FRANCIE MORENO Rep #:[id number] : 1960 62 From: Gerald dia MD PCP: Dr. Duane Odom MD Status: ADM IN [facility] Exam Narrative Ongoing diarrhea, worst first thing in AM. No fever Const alert and no apparent distress Resp normal air movement and clear to auscultation bilaterally Cardio regular rate and regular rhythm GI soft to palpation, non-tender and non-distended Skin no rashes or lesions noted ID ID: Route of nutrition/ use of supplements: [] Nutritional Intake: [] IV Site: [] Vance Catheter: [] Assessment & Plan Assessment/Plan (1) Infected prosthetic knee joint: PLAN: enterococcus and pseudomonas L knee PJI - Had aspiration done early December, cx showed enterococcus.? Taken to OR 12/29/[address] Richard for spacer placement.? Surg cx now with enterococcus and pseudomonas.? Picc in place for 6 weeks iv abx, stop date 02/09/23 with weekly labs.? With new growth of PsA, changed amp to zosyn to cover both organisms. Doing well, reviewed labs. C/o some diarrhea, will schedule imodium qhs. No abd pain, no fever, no leukocytosis, no blood in stool. Will follow 01/24/23 1348 <Electronically signed by Gerald Balbuena MD> Cosigner Signature (if applicable): CC: ~ Signed [facility] Work Phone: 1(822) 595-225205-02-2023 Miscellaneous Notes* Telephone Encounter - Laura Nelson LPN - 01/04/2023 3:25 PM EDT Pharmacy requesting the following refill. REFUSE MEDICATION. REFILLED ON 12/13/2022. Requested Prescriptions Pending Prescriptions Disp Refills folic acid 1 mg tablet [Pharmacy Med Name: FOLIC ACID 1 MG TABLET] 30 tablet 1 Sig: TAKE 1 TABLET BY MOUTH EVERY DAY Patient last appointment: 11/15/2022 Next Appointment: 02/23/2023 Patient Phone numbers: [phone] (home) Request is for script(s) to be escript to pharmacy. [id number] [place] [address] - [address] [facility]. - [phone] [facility] [place] [id number] Laura [facility] LPN [facility] History and physical note Author Dr. Baires [facility] January 03, 2023 5:14pm Note Date/Time December 31, 2022 3:3 7pm [facility] Medical Records Department [address] [place] [address] History & Physical Exam 12/31/22 1529 MR#: [id number] Acct: [id number] Name: MORENOFRANCIE Cárdenas MAGO Rep #:[id number] : 1960 62 From: Toro Baires MD PCP: Dr. Duane Odom MD Status: ADM IN Location: [place] [address] HPI - General General Date of Admission: 12/31/22 Date of Service: 12/31/22 Chief Complaint: Here for rehabilitation, intravenous antibiotics, prior to discharge home. HPI Narrative FRANCIE STOCKE, is a 62 Female who presents with followin06/26/2021 Dr. Charles performed left TKA. Worsening pain for 6 months. Imaging shows loosening of left TKA. Using cane to walk. Intra-articular culture growing Enterococcus Faecalis. 12/29/2022 Admit to [facility]. 12/29/2022 Dr. Richard performed left knee explant of total knee arthroplasty withplacement of articulating antibiotic spacer. 12/29/2022 Left knee immobilizer. PT/OT for TCU. Aspirin 81mg twice daily for DVT prophylaxis. 12/30/2022 Nausea, taken off omeprazole for GERD. Taking many Rolaids recently. Dr. Balbuena recommended 6 weeks of IV Ampicillin via PICC for Enterococcus Faecalis left prosthetic knee joint infection. Protonix IV for GERD. 12/31/2022 Less nausea on IV PPI, passing gas, no bowel movement. 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 12/31/2022 Admit to TCU with debility, here for rehabilitation, strengthening, intravenous antibiotics prior to discharge home. [facility] Medical History Allergic rhinitis Allergic rhinitis Ambulates with cane Anemia Anxiety Arthritis Atherosclerosis of coronary artery of [place] heart without angina pectoris Back pain Cardiology follow-up encounter Chronic headaches Coronary artery disease Debility Depression Essential hypertension Fibromyalgia Former smoker Gastric reflux Gastroesophageal reflux disease High cholesterol History of echocardiogram History of heart attack History of non-ST elevation myocardial infarction (NSTEMI) (04/26/16) History of pain when walking History of stress test Hypertension Marijuana use Obesity ANN (obstructive sleep apnea) Osteoarthritis of both knees Rheumatoid arthritis Rheumatoid arthritis Septic arthritis Shortness of breath on exertion Sleep apnea Syncope Uses wheelchair Vitamin D deficiency Vitamin D deficiency Walker as ambulation aid Wears glasses Home Medications fexofenadine 60 mg tablet 60 mg PO DAILY PRN Allergies 06/11/20 [History Last Taken 06/25/21 08:00] tizanidine 4 mg tablet 4 mg PO QHS muscle relaxer 07/07/20 [History Last Taken 06/25/21 08:00] acetaminophen 500 mg tablet 1,000 mg PO Q8 PRN Pain #90 tabs 05/27/21 [Rx Last Taken 06/25/21 15:00] ergocalciferol (vitamin D2) 1,250 mcg (50,000 unit) capsule 50,000 unit PO Mejia@1000 supplement 06/29/21 [History Last Taken Unknown] folic acid 1 mg tablet 1 mg PO DAILY supplement 12/22/22 [History Last Taken Unknown] lisinopril 10 mg tablet 20 mg PO DAILY blood pressure 12/22/22 [History Last Taken 12/29/22] ampicillin sodium 2 gram solution for injection 2 g IV Q6 infection 12/31/22 [History Last Taken Unknown] aspirin 81 mg chewable tablet 81 mg PO BIDCM blood thinner 12/31/22 [History Last Taken Unknown] ferrous sulfate 325 mg (65 mg iron) tablet (FeroSul) 325 mg PO 1200,1700 supplement 12/31/22 [History Last Taken Unknown] oxycodone 5 mg tablet 5 - 10 mg PO Q4H PRN PRN Pain Score 4-10 7 days #30 tabs 12/31/22 [Rx Last Taken Unknown] pantoprazole 40 mg tablet,delayed release 40 mg PO DAILY stomach 12/31/22 [History Last Taken Unknown] sennosides 8.6 mg-docusate sodium 50 mg tablet (Stool Softener-Stimulant Laxative) 2 tab PO BID constipation 12/31/22 [History Last Taken Unknown] Allergy/AdvReac Type Severity Reaction Status Date / Time No Known Allergies Allergy Verified 12/29/22 10:36 Family History Mother Hypertension CVA (cerebral vascular accident) Sister Cancer Father Heart disease Surgical History History of cardiac catheterization History of coronary artery stent placement (04/26/16) History of total left knee replacement (2020) History of total right knee replacement Hx of colonoscopy Status post incision and drainage Social History household members: children Smoking Status: Former smoker how long ago did patient quit smokin years ago alcohol intake: current alcohol intake frequency: holidays/special occasions only substance use type: does not use caffeine: Yes Type: carbonated beverages and coffee ROS Constitutional Constitutional: Denies chills, fever(s) or weight gain ENT HEENT: Denies headache(s), nasal congestion or nasal discharge Cardiovascular Cardiovascular: Denies chest pain or palpitations Respiratory/Chest Respiratory/Chest: Denies cough, excessive phlegm production or shortness of breath with exertion Gastrointestinal Gastrointestinal: Denies abdominal pain, nausea or vomiting Genitourinary Genitourinary: Denies dysuria Musculoskeletal Musculoskeletal: Denies joint pain or joint swelling Integumentary Integumentary: Denies rash or wounds Neurologic Neurologic: Denies focal weakness, numbness or tingling Psychiatric Psychiatric: Denies anxiety, auditory hallucinations, depression, homicidal ideation or suicidal ideation Vital Signs Vital Signs Vital Signs: 12/31/22 15:19 Temperature 96.8 F L Temperature Source Temporal Pulse Rate 95 Respiratory Rate 19 H Blood Pressure 127/56 H Blood Pressure Mean 79 Blood Pressure Source Monitor Blood Pressure Position Sitting Blood Pressure Location Left Arm Pulse Ox 93 Oxygen Delivery Method Room Air Physical Exam Const alert General Appearance: cooperative HEENT normocephalic Eyes PERRL and EOMs intact bilaterally Neck supple, no JVD and no carotid bruits Resp normal respiratory effort, normal air movement and clear to auscultation bilaterally Cardio regular rate and regular rhythm GI normal to inspection, nondistended, normoactive bowel sounds, non-tender and non-distended Extremity normal capillary refill Extremity Narrative: Right upper extremity PICC line, left knee immobilizer. 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 Richard, admitted to TCU with debility, here for rehabilitation, strengthening, intravenous antibiotics, priorto discharge home with daughter. * Debility - PT/OT. * Pain - Tylenol 1000mg q6h prn pain (1-3), Oxycodone 5-10mg q4h prn pain (4- 10). * Bowel - senna/colace 2 tablets bid, MOM 30ml po x 1 prn. * Adult immunization - Administer pneumonia vaccine, covid19 vaccine, flu vaccine as appropriate. * DVT prophylaxis - Aspirin 81mg bid. * Left prosthetic knee joint infection s/p explant/antibiotic spacer - Ampicillin 2gm iv q6h thru 02/09/2023, consult Dr. Balbuena to follow. * Vitamin D deficiency - D 1.25mg per week. * Iron deficiency anemia - Ferrous sulfate 325mg bid. * Folate deficiency - Folic acid 1mg daily. * Coronary artery disease - Lisinopril 20mg daily * Allergic rhinitis - Loratadine 10mg daily prn * GERD - Pantoprazole 40mg daily. * Muscle spasm - Tizanidine 4mg qhs. 12/31/22 1543 <Electronically signed by Toro Baires MD> Cosigner Signature (if applicable): CC: Dr. Duane Odom MD; Dr. Toro Baires MD~ Signed ADDENDUM by Dr. Toro Baires MD on 01/03/23 at 1714 Addendum Depression - Rx Duloxetine 30mg daily, stable chronic prison use, GDR not recommended. 01/03/23 1714<Electronically signed by Toro Baires MD> Cosigner Signature (if applicable): cc: Dr. Duane Odom MD; Dr. Toro Baires MD ~* Signed [facility] Work Phone: 1(118) 926-840805-01-[address] Baires [facility] January 03, 2023 3:49pm Note Date/Time January 03, 2023 2:37pm [facility] Medical Records Department [address] [place] [address] Progress Note - Pharmacy 01/03/23 1422 MR#: [id number] Acct: [id number] Name: FRANCIE MORENO Rep #:[id number] : 1960 62 From: Brittany Aguila PCP: Dr. Duane Odom MD Status: ADM IN Location: [facility] T[facility] RX Drug Regimen Review Subjective: TCU Admission. 62 YOF 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 Richard. Admitted to TCU with debility for strengthening and rehabilitation. Objective: Allergies No Known Allergies Allergy (Verified 12/29/22 10:36) Current Medications Generic Name Dose Route Start Last Admin Trade Name Freq PRN Reason Stop Dose Admin Acetaminophen 1,000 mg 12/31/22 15:44 01/03/23 06:47 Acetaminophen 500 Mg Tablet PO 1,000 mg Q6H PRN PRN Administration Pain Score 1-3 Aspirin 81 mg 12/31/22 17:00 01/03/23 08:27 Aspirin 81 Mg Tab.Chew PO 01/26/23 22:00 81 mg BIDCM BILL Administration Ergocalciferol 1.25 mg 01/02/23 10:00 01/02/23 11:14 Ergocalciferol 1.25 Mg (50, 000 Unit) Capsule PO 1.25 mg Mejia@1000 BILL Administration Ferrous Sulfate 325 mg 12/31/22 17:00 01/03/23 12:04 Ferrous Sulfate 325 Mg Tablet PO 325 mg 1200,1700 BILL Administration Folic Acid 1 mg 01/01/23 08:00 01/03/23 08:27 Folic Acid 1 Mg Tablet PO 1 mg BREAKFAST BILL Administration Heparin Sodium (Beef Lung) 50 units 12/31/22 15:39 Heparin Pf Lock 10 Units/Ml 50 Units/5 Ml Syringe IV UD PRN PICC Line Heparin Flush Sodium Chloride 250 mls @ 15 mls/hr 12/31/22 17:53 01/02/23 05:16 IV 15 mls/hr .[id number] PRN Administration Saline Flush Piperacillin Sod/Tazobactam 50 mls @ 12.5 mls/hr 01/03/23 14:00 01/03/23 14:11 Sod 3.375 gm/ Sodium Chloride IV 02/09/23 12:00 12.5 mls/hr Q8 BILL Administration Lisinopril 20 mg 01/01/23 06:00 01/03/23 06:47 Lisinopril 20 Mg Tablet PO 20 mg DAILY BILL Administration Loratadine 10 mg 12/31/22 15:28 01/03/23 08:29 Loratadine 10 Mg Tablet PO 10 mg DAILY PRN PRN Administration Allergies Magnesium Hydroxide 30 ml 12/31/22 15:44 01/01/23 08:04 Magnesium Hydroxide 30 Ml Udc PO 30 ml X1 PRN Administration Constipation Nutritional Formula (Lactose Free) 120 ml 12/31/22 17:45 01/03/23 12:08 Ensure Plus High Protein 120 Ml Liquid PO 120 ml TIDCM BILL Administration Ondansetron HCl 8 mg 01/01/23 10:04 01/03/23 02:30 Ondansetron Odt 4 Mg Tablet PO 8 mg Q8H PRN PRN Administration NAUSEA/VOMITING Oxycodone HCl 5 - 10 mg 12/31/22 14:55 01/03/23 12:08 Oxycodone 5 Mg Tablet PO 10 mg Q4H PRN PRN Administration Pain Score 4-10 Pantoprazole Sodium 40 mg 01/01/23 06:00 01/03/23 06:47 Pantoprazole Sodium 40 Mg Tablet PO 40 mg DAILY BILL Administration Senna/Docusate Sodium 2 tablet 12/31/22 18:00 01/03/23 06:48 Senna/Docusate Sodium 1 Tablet PO Not Given BID BILL Sodium Chloride 10 - 40 ml 12/31/22 15:39 01/03/23 14:14 0.9% Saline Lock 10 Ml Syringe IV 20 ml UD PRN Administration Open End PICC Flush Sodium Chloride 10 - 40 ml 12/31/22 15:39 0.9 % Nacl (Sterile) Posiflush 10 Ml IV UD PRN Port access or dressing change Tizanidine HCl 4 mg 12/31/22 22:00 01/02/23 21:49 Tizanidine Hcl 2 Mg Tablet PO 4 mg QHS BILL Administration Tuberculin PPD 0.1 ml 01/08/23 10:00 Tuberculin,Purif.Prot.Deriv. 50 Tu/Ml Vial ID 01/08/23 10:01 X1 ONE Problem List (Last Reviewed 12/31/22 @ 15:[address] Toro Baires MD) Osteoporosis (Acute) Hyperlipidemia (Acute) Fibromyalgia (Acute) Depression (Acute) Anemia (Acute) Obstructive sleep apnea (Acute) Coronary artery disease (Acute) Rheumatoid arthritis (Acute) Debility (Acute) Infected prosthetic knee joint (Acute) Vital Signs Temp Pulse Resp BP Pulse Ox O2 Del Method 96.8 F L 91 16 150/67 H 96 Room Air 01/01/23 16:00 01/03/23 09:55 01/03/23 09:55 01/03/23 06:40 01/03/23 09:55 01/03/23 09:55 Oxygen Delivery Method Room Air Weight: 91.535 kg Body Mass Index (BMI) 36.8 Sodium 137 mmol/L (136-145) 01/01/23 07:10 Potassium 4.0 mmol/L (3.5-5.1) 01/01/23 07:10 Chloride 105 mmol/L (98-107) 01/01/23 07:10 Carbon Dioxide 30.0 mmol/L (21.0-32.0) 01/01/23 07:10 Anion Gap 2 (5-15) L 01/01/23 07:10 BUN 11 mg/dL (7-18) 01/01/23 07:10 Creatinine 0.65 mg/dL (0.55-1.02) 01/01/23 07:10 Est GFR (MDRD) Af Amer 118 mL/min (>60) 01/01/23 07:10 Est GFR (MDRD) Non-Af 97 mL/min (>60) 01/01/23 07:10 BUN/Creatinine Ratio 16.9 RATIO (10-20) 01/01/23 07:10 Glucose 100 mg/dL (74-106) 01/01/23 07:10 Assessment/Plan: 1. Pain: acetaminophen 1000mg PO Q6H PRN pain 1-3 and oxycodone 5-10mg PO Q4H PRN pain 4-10. Resident has had 5 doses of acetaminophen and 13 of oxycodone forpain from 5-10 in the knee/back. Please continue to monitor for increased pain, PRN usage, constipation and respiratory depression. 2. Bowel: senna/docusate 2T PO BID and MOM 30mL PO x1 PRN constipation. Residenthad 1 dose of MOM but does not have a documented bowel movements. Please continue to monitor for constipation and PRN usage. 3. 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 ID consulted, new culture started growing pseudomonas, switch from ampicillin to piperacillin/tazobactam. Please continue to monitor cultures, S/S of infection, diarrhea and renal function. 4. DVT prophylaxis: aspirin 81mg PO BIDCM thru 01/26/23. Please continue to monitor hemoglobin (last 8.1g/dL) and S/S of bleeding. 5. Iron deficiency anemia: ferrous sulfate 325mg PO BIDCM. Please continue to monitor hemoglobin, constipation and dark stools. 6. CAD: lisinopril 20mg PO daily. Please continue to monitor BP (last 150/67), potassium (last 4mmol/L), cough and renal function. 7. Allergic rhinitis: loratadine 10mg PO daily PRN allergies. Resident has had 3doses so far. Please continue to monitor for S/S of allergies and PRN usage. 8. GERD: pantoprazole 40mg PO daily. Please continue to monitor for S/S of GERD and diarrhea. 9. Muscle spasm: tizanidine 4mg PO QHS. Please continue to monitor for muscle spasms, fatigue and dry mouth. 10. Vitamin D and folate deficiencies: ergocalciferol 1.25mg PO Sundays and folic acid 1mg PO DAILYCM. Please continue to monitor vitamin D levels (last 01/27/22). 11. Nausea: ondansetron 8mg PO Q8H PRN nausea. Resident has had 1 dose. Please continue to monitor for nausea and PRN usage. Assessment/Plan for indications treated with psychotropic medications: None Medical chart and medication regimen reviewed. The following medication irregularities or issues were identified: None Date of Note:: 01/03/23 01/03/23 1437 <Electronically signed by Brittany Aguila > Brittany Aguila Cosigner Signature (if applicable): 01/03/23 1549 <Electronically signed by Toro Baires MD> CC: ~ Signed [facility] Work Phone: 1(265) 652-604505-01-[address] Balbuena [facility] January 03, 2023 2:14pm Note Date/Time January 03, 2023 2:14pm [facility] Medical Records Department [address] [place] [address] Progress Note - Infect Disease 01/03/23 1412 MR#: [id number] Acct: [id number] Name: FRANCIE MORENO MERCEDES Rep #:[id number] : 1960 62 From: Gerald dia MD PCP: Dr. Duane Odom MD Status: ADM IN Location: [facility] [id number] Physical Exam Narrative Feeling ok, knee sore, no fever Const alert and no apparent distress General Appearance: cooperative Resp normal air movement and clear to auscultation bilaterally Cardio regular rate and regular rhythm GI soft to palpation, non-tender and non-distended Extremity General Extremity: edema Skin Skin Narrative: knee wrapped ID ID: Route of nutrition/ use of supplements: [] Nutritional Intake: [] IV Site: [] Vance Catheter: [] Assessment & Plan Assessment/Plan (1) Infected prosthetic knee joint: PLAN: enterococcus and pseudomonas L knee PJI - Had aspiration done early December, cx showed enterococcus.? Taken to OR 12/29/[address] Richard for spacer placement.? Surg cx now with enterococcus and pseudomonas.? Picc in place for 6 weeks iv abx, stop date 02/09/23 with weekly labs.? With new growth of PsA, will change amp to zosyn to cover both organisms. Will follow 01/03/23 1414 <Electronically signed by Gerald Balbuena MD> Cosigner Signature (if applicable): CC: ~ Signed [facility] Work Phone: 1(202) 928-216604-28-[address] Claire [facility] December 31, 2022 8:49am Note Date/Time December 31, 2022 6:2 0am [facility] Medical Records Department [address] [place] [id number] Progress Note - Hospitalist 12/31/22 0620 MR#: [id number] Acct: [id number] Name: FRANCIE MORENO Rep #:[id number] : 1960 62 From: Ct Claire MD PCP: Dr. Duane Odom MD Status: ADM IN Location: [place] [id number] Reason for Visit Reason for Visit: Diagnoses Infection and inflammatory reaction due to other internal joint prosthesis, initial encounter (12/29/22) Encounter for other preprocedural examination (12/29/22) Presence of unspecified artificial knee joint (12/29/22) Subjective Subjective Less nausea today after starting PPI, continue current management. Hasn't had BMbut passing gas. No CP or SOB Objective Data Objective Data Vital Signs: Vital Signs Temp Pulse Resp BP Pulse Ox O2 Del Method O2 Flow Rate 98 F 85 16 137/77 H 100 Nasal Cannula 2 12/31/22 04:08 12/31/22 04:08 12/31/22 04:08 12/31/22 04:08 12/31/22 04:08 12/31/22 04:08 12/31/22 04:08 Oxygen Flow Rate (L/min) 2 Oxygen Delivery Method Nasal Cannula Weight: 89.358 kg Body Mass Index (BMI) 36.0 Intake & Output: Intake and Output for Last 24 Hours 12/29/22 12/30/22 12/31/22 23:59 23:59 23:59 Intake Total 2292.33 / 2692.33 1410 / 1710 700 / 700 Output Total 225 / 225 Balance 2292.33 / 2517.33 1185 / 1485 700 / 700 Lab / Micro Data Result Diagrams: 12/31/22 05:10 12/31/22 05:10 Labs: Laboratory Results - last 24 hr 12/30/22 06:15: WBC 9.8, RBC 3.28 L, Hgb 9.5 L, Hct 30.5 L, MCV 93.0, MCH 29.0, MCHC 31.1 L, RDW Std Deviation 46.6 H, RDW Coeff of Daphne 13.9, Plt Count 281, MPV9.7 12/30/22 06:15: Sodium 135 L, Potassium 3.9, Chloride 104, Carbon Dioxide 28.0, Anion Gap 3 L, BUN 15, Creatinine 0.68, Estim Creat Clear Calc 66.97, Est GFR (MDRD) Af Amer 111, Est GFR (MDRD) Non-Af 92, BUN/Creatinine Ratio 21.9 H, Glucose 131 H, Calcium 8.4 L 12/30/22 06:15: Total Bilirubin 0.30, Direct Bilirubin 0.08, AST 13 L, ALT 17, Alkaline Phosphatase 81, Total Protein 6.1 L, Albumin 2.9 L, Globulin 3.2 12/31/22 05:10: WBC 6.1, RBC 3.08 L, Hgb 9.1 L, Hct 28.3 L, MCV 91.9, MCH 29.5, MCHC 32.2, RDW Std Deviation 46.5 H, RDW Coeff of Daphne 13.9, Plt Count 258, MPV 9.6 12/31/22 05:10: Sodium 138, Potassium 4.0, Chloride 107, Carbon Dioxide 30.0, Anion Gap 1 L, BUN 10, Creatinine 0.62, Estim Creat Clear Calc 73.46, Est GFR (MDRD) Af Amer 124, Est GFR (MDRD) Non-Af 102, BUN/Creatinine Ratio 16.0, Glucose 113 H, Calcium 8.4 L, Total Bilirubin 0.30, Direct Bilirubin 0.14, AST 11 L, ALT 15, Alkaline Phosphatase 83, Total Protein 6.2 L, Albumin 2.8 L, Globulin 3.4 Micro: Microbiology 12/29/22 15:48 Incision/Surgical Site Gram Stain - Final 12/29/22 15:48 Incision/Surgical Site Wound Culture - Preliminary No growth-Final to follow 12/29/22 15:38 Incision/Surgical Site Gram Stain - Final 12/29/22 15:38 Incision/Surgical Site Wound Culture - Preliminary No growth-Final to follow 12/29/22 15:37 Incision/Surgical Site Gram Stain - Final 12/29/22 15:37 Incision/Surgical Site Wound Culture - Preliminary GPC Poss Enterococcus sp 12/24/22 13:48 Nasal Secretion Nasal Screen MRSA/MSSA - Final Physical Exam Narrative General: Alert, oriented HEENT: Atraumatic, normocephalic Eyes: Anicteric, normal conjunctiva, extraocular movements grossly intact Neck: Supple Respiratory: Clear to auscultation bilaterally, normal respiratory effort Cardiovascular: Regular rate and rhythm GI: Soft, nontender, nondistended Extremities: Status post left knee explant Musculoskeletal: Moving extremities in bed Neuro: No overt focal neurological deficits Skin: No rashes appreciated Psych: Cooperative Assessment & Plan Assessment/Plan (1) Infected prosthetic knee joint: PLAN: Plan Left knee periprosthetic joint infection -Postop day 0 from left knee explant of total knee replacement with placement ofan articulating antibiotic spacer -Pain management per primary -Toe-touch weightbearing x2 weeks followed by partial weightbearing -Range of motion exercises to start at 2 weeks -Continue knee immobilizer with no flexion -ID has been consulted for antibiotic management -Initial cultures show Enterococcus faecalis -PT/OT consultation for gait training -Case management/social work for discharge planning to skilled facility--> patient would like to transition to TCU once medically stable -Will need pre-CERT as patient has a commercial Medicare product -12/30: ID evaluated. PICC line placed and 6 weeks of IV ampicillin ordered -12/31: On ampicillin. Growing Enterococcus faecalis. One cx with rare CNR non fermenters, ID following, final speciation pending. Nausea -Endorses feeling nauseous in the mornings but slightly worse this a.m. -Has Zofran as needed -Has reflux and does seem to be contributory, given her difficulty to tolerate p.o. due to the nausea will give IV Protonix -12/31: Improving. Change PPI to oral. Anemia - 9.1 on 12/31. Was 12/8 on 12/27 however baseline variable and often seems between 9-11. Is post op, no present active blood loss noted. May need outpt w/u CAD/HPL/HTN -SHILPI-LAD w/? 2.75 x 16 mm Promus Premier 04/26/2016 -Continue aspirin--> will be on 81 mg twice daily for DVT prophylaxis per orthopedic surgery recommendation -Continue lisinopril -Patient is not on statin due to intolerance -Clinically stable at this time Vitamin D deficiency -Continue ergocalciferol every Tuesday Seasonal allergies -Continue fexofenadine Rheumatoid arthritis -Patient has been on Biologics and methotrexate previously -Does not currently appear to be on anything -Pain medication per primary service GERD -Patient does not on any med occasion at this time Obesity -BMI 36 -Recommend weight loss -Complicates treatment, prognosis, outcomes DVT prophylaxis -81 mg aspirin p.o. twice daily per orthopedic surgery recommendations Charges/Coding Visit Charges Inpatient E&M: 93329 Subs Hosp L2 12/31/22 0849 <Electronically signed by Ct Claire MD> Cosigner Signature (if applicable): CC: ~ Signed [facility] Work Phone: 1(122) 964-160704-27-[address] Claire [facility] December 30, 2022 5:18pm Note Date/Time December 30, 2022 12: 36pm [facility] Medical Records Department [address] [place] [address] [place] [address] Progress Note - Hospitalist 12/30/22 1236 MR#: [id number] Acct: [id number] Name: FRANCIE MORENO Rep #:[id number] : 1960 62 From: Ct Claire MD PCP: Dr. Duane Odom MD Status: ADM IN Location: [facility] [id number] Reason for Visit Reason for Visit: Diagnoses Infection and inflammatory reaction due to other internal joint prosthesis, initial encounter (12/29/22) Encounter for other preprocedural examination (12/29/22) Presence of unspecified artificial knee joint (12/29/22) Subjective Subjective Feeling somewhat nauseous this a.m. Reports that every morning she is usually nauseous but feels slightly more so today. Does report that she was taken off of her omeprazole when her medicines were changed on as an outpatient and has been having worsening GERD since then needing a lot of Rolaids and currently is having GERD symptoms. Objective Data Objective Data Vital Signs: Vital Signs Temp Pulse Resp BP Pulse Ox O2 Del Method O2 Flow Rate 98.2 F 92 16 138/70 H 97 Room Air 2 12/30/22 11:29 12/30/22 11:29 12/30/22 11:29 12/30/22 11:29 12/30/22 11:29 12/30/22 11:29 12/30/22 09:34 Oxygen Flow Rate (L/min) 2 Oxygen Delivery Method Room Air Weight: 89.358 kg Body Mass Index (BMI) 36.0 Intake & Output: Intake and Output for Last 24 Hours 12/28/22 12/29/22 12/30/22 23:59 23:59 23:59 Intake Total 2292.33 / 2692.33 850 / 850 Output Total 225 / 225 Balance 2292.33 / 2517.33 625 / 625 Lab / Micro Data Result Diagrams: 12/30/22 06:15 12/30/22 06:15 Labs: Laboratory Results - last 24 hr 12/29/22 16:31: POC Glucose 100 12/30/22 06:15: WBC 9.8, RBC 3.28 L, Hgb 9.5 L, Hct 30.5 L, MCV 93.0, MCH 29.0, MCHC 31.1 L, RDW Std Deviation 46.6 H, RDW Coeff of Daphne 13.9, Plt Count 281, MPV9.7 12/30/22 06:15: Sodium 135 L, Potassium 3.9, Chloride 104, Carbon Dioxide 28.0, Anion Gap 3 L, BUN 15, Creatinine 0.68, Estim Creat Clear Calc 66.97, Est GFR (MDRD) Af Amer 111, Est GFR (MDRD) Non-Af 92, BUN/Creatinine Ratio 21.9 H, Glucose 131 H, Calcium 8.4 L Micro: Microbiology 12/29/22 15:48 Incision/Surgical Site Wound Culture - Preliminary No growth-Final to follow 12/29/22 15:38 Incision/Surgical Site Wound Culture - Preliminary No growth-Final to follow 12/29/22 15:37 Incision/Surgical Site Wound Culture - Preliminary GPC Poss Enterococcus sp 12/24/22 13:48 Nasal Secretion Nasal Screen MRSA/MSSA - Final Radiography Diagnostic Testing: Radiology Impression Knee X-Ray 12/29/22 16:35 IMPRESSION: The femoral component of a total knee prosthesis in good position. Electronically Signed: Chris Collier MD at 17:47 EDT , Physical Exam Narrative General: Alert, oriented HEENT: Atraumatic, normocephalic Eyes: Anicteric, normal conjunctiva, extraocular movements grossly intact Neck: Supple Respiratory: Clear to auscultation bilaterally, normal respiratory effort Cardiovascular: Regular rate and rhythm GI: Soft, nontender, nondistended Extremities: Status post left knee explant Musculoskeletal: Moving extremities in bed Neuro: No overt focal neurological deficits Skin: No rashes appreciated Psych: Cooperative Assessment & Plan Assessment/Plan (1) Infected prosthetic knee joint: PLAN: Plan Left knee periprosthetic joint infection -Postop day 0 from left knee explant of total knee replacement with placement ofan articulating antibiotic spacer -Pain management per primary -Toe-touch weightbearing x2 weeks followed by partial weightbearing -Range of motion exercises to start at 2 weeks -Continue knee immobilizer with no flexion -ID has been consulted for antibiotic management -Initial cultures show Enterococcus faecalis -PT/OT consultation for gait training -Case management/social work for discharge planning to skilled facility--> patient would like to transition to TCU once medically stable -Will need pre-CERT as patient has a commercial Medicare product -12/30: ID evaluated. PICC line placed and 6 weeks of IV ampicillin ordered Nausea -Endorses feeling nauseous in the mornings but slightly worse this a.m. -Has Zofran as needed -Has reflux and does seem to be contributory, given her difficulty to tolerate p.o. due to the nausea will give IV Protonix CAD/HPL/HTN -SHILPI-LAD w/? 2.75 x 16 mm Promus Premier 04/26/2016 -Continue aspirin--> will be on 81 mg twice daily for DVT prophylaxis per orthopedic surgery recommendation -Continue lisinopril -Patient is not on statin due to intolerance -Clinically stable at this time Vitamin D deficiency -Continue ergocalciferol every Tuesday Seasonal allergies -Continue fexofenadine Rheumatoid arthritis -Patient has been on Biologics and methotrexate previously -Does not currently appear to be on anything -Pain medication per primary service GERD -Patient does not on any med occasion at this time Obesity -BMI 36 -Recommend weight loss -Complicates treatment, prognosis, outcomes DVT prophylaxis -81 mg aspirin p.o. twice daily per orthopedic surgery recommendations Charges/Coding Visit Charges Inpatient E&M: 15280 Subs Hosp L2 12/30/22 1718 <Electronically signed by Ct Claire MD> Cosigner Signature (if applicable): CC: ~ Signed [facility] Work Phone: 1(201) 680-330204-27-[address] Balbuena [facility] December 30, 2022 1:11pm Note Date/Time December 30, 2022 1:1 1pm [facility] Medical Records Department [address] [facility] [place] [address] Consultation - Infectious Dx 12/30/22 1307 MR#: [id number] Acct: [id number] Name: FRANCIE MORENO Rep #:[id number] : 1960 62 From: Gerald dia MD PCP: Dr. Duane Odom MD Status: ADM IN [id number] Assessment & Plan Assessment/Plan (1) Infected prosthetic knee joint: PLAN: enterococcus L knee PJI - Had aspiration done early December, cx showed enterococcus. Has been on cefadroxil for past 2 weeks without improvement. Cephalosporins do not have coverage for enterococcus. Taken to OR 12/29/[address] Richard for spacer placement. Surg cx now with enterococcus-like seen. Willorder picc and 6 weeks iv ampicillin, stop date 02/09/23 with weekly labs. If shegoes to TCU, I can follow here there, otherwise ID appt in 2 weeks. Wrote for abx and labs. Will follow, thank you, d/w immigration case worker HPI Consult Data Date of Consult: 12/30/22 HPI Narrative Reason for Consultation: PJI HPI Narrative: FRANCIE MORENO, is a 62 F who presented with one year progressive pain, redness, and swelling of L knee with prior replacement. No fever, chills, night sweats. No drainage. Had aspiration done 3-4 weeks ago, cx showed enterococcus. Has been on cefadroxil for past 2 weeks without improvement. Taken to OR 12/[address] Richard for spacer placement. Full ROS performed and neg except as noted above. [facility] Medical History Allergic rhinitis Allergic rhinitis Ambulates with cane Anemia Anxiety Arthritis Atherosclerosis of coronary artery of [place] heart without angina pectoris Back pain Cardiology follow-up encounter Chronic headaches Coronary artery disease Debility Depression Essential hypertension Fibromyalgia Former smoker Gastric reflux Gastroesophageal reflux disease High cholesterol History of echocardiogram History of heart attack History of non-ST elevation myocardial infarction (NSTEMI) (04/26/16) History of pain when walking History of stress test Hypertension Marijuana use Obesity ANN (obstructive sleep apnea) Osteoarthritis of both knees Rheumatoid arthritis Rheumatoid arthritis Septic arthritis Shortness of breath on exertion Sleep apnea Syncope Uses wheelchair Vitamin D deficiency Vitamin D deficiency Walker as ambulation aid Wears glasses Home Medications fexofenadine 60 mg tablet 60 mg PO DAILY PRN Allergies 06/11/20 [History Last Taken 06/25/21 08:00] tizanidine 4 mg tablet 4 mg PO QHS muscle relaxer 07/07/20 [History Last Taken 06/25/21 08:00] acetaminophen 500 mg tablet 1,000 mg PO Q8 PRN Pain #90 tabs 05/27/21 [Rx Last Taken 06/25/21 15:00] ergocalciferol (vitamin D2) 1,250 mcg (50,000 unit) capsule 50,000 unit PO Mejia@1000 supplement 06/29/21 [History Last Taken Unknown] aspirin 81 mg tablet,delayed release (Adult Low Dose Aspirin) 81 mg PO DAILY Check with primary doctor 02/25/22 [History Last Taken 12/25/22] folic acid 1 mg tablet 1 mg PO DAILY Check with primary doctor 12/22/22 [History Last Taken Unknown] lisinopril 10 mg tablet 20 mg PO DAILY Check with primary doctor 12/22/22 [History Last Taken 12/29/22] ampicillin sodium 2 gram solution for injection 2 g IV Q6 41 days #164 ea 12/30/22 [Rx Last Taken Unknown] Allergy/AdvReac Type Severity Reaction Status Date / Time No Known Allergies Allergy Verified 12/29/22 10:36 Family History Mother Hypertension CVA (cerebral vascular accident) Sister Cancer Father Heart disease Surgical History History of cardiac catheterization History of coronary artery stent placement (04/26/16) History of total left knee replacement (2020) History of total right knee replacement Hx of colonoscopy Status post incision and drainage Social History household members: children Smoking Status: Former smoker how long ago did patient quit smokin years ago alcohol intake: current alcohol intake frequency: holidays/special occasions only substance use type: does not use caffeine: Yes Type: carbonated beverages and coffee Physical Exam Const alert, oriented x3 and no apparent distress General Appearance: cooperative HEENT normocephalic and head/scalp atraumatic Eyes PERRL and EOMs intact bilaterally Neck supple and No nodes Resp normal air movement and clear to auscultation bilaterally Cardio regular rate and regular rhythm GI soft to palpation, non-tender and non-distended Extremity General Extremity: Negative for edema Skin Skin Narrative: L knee wrapped Neuro CN's II-XII intact bilaterally Lab / Micro Data Attestation: I reviewed the patient's lab results. Result Diagrams: 12/30/22 06:15 12/30/22 06:15 Labs: Laboratory Results - last 24 hr 12/29/22 16:31: POC Glucose 100 12/30/22 06:15: WBC 9.8, RBC 3.28 L, Hgb 9.5 L, Hct 30.5 L, MCV 93.0, MCH 29.0, MCHC 31.1 L, RDW Std Deviation 46.6 H, RDW Coeff of Daphne 13.9, Plt Count 281, MPV9.7 12/30/22 06:15: Sodium 135 L, Potassium 3.9, Chloride 104, Carbon Dioxide 28.0, Anion Gap 3 L, BUN 15, Creatinine 0.68, Estim Creat Clear Calc 66.97, Est GFR (MDRD) Af Amer 111, Est GFR (MDRD) Non-Af 92, BUN/Creatinine Ratio 21.9 H, Glucose 131 H, Calcium 8.4 L Micro: Microbiology 12/29/22 15:48 Incision/Surgical Site Wound Culture - Preliminary No growth-Final to follow 12/29/22 15:38 Incision/Surgical Site Wound Culture - Preliminary No growth-Final to follow 12/29/22 15:37 Incision/Surgical Site Wound Culture - Preliminary GPC Poss Enterococcus sp Radiology Impression Knee X-Ray 12/29/22 16:35 IMPRESSION: The femoral component of a total knee prosthesis in good position. Electronically Signed: Chris Collier MD at 17:47 EDT , 12/30/22 1311 <Electronically signed by Gerald Balbuena MD> Cosigner Signature (if applicable): CC: Dr. Duane Odom MD; Dr. Ct Claire MD; Dr. Gerald Balbuena MD; Dr. Otf Richard MD~ Signed [facility] Work Phone: 1(432) 280-634204-27-2023 Progress note Author Leonel Snow [facility] December 30, 2022 10:58am Note Date/Time December 30, 2022 10: 58am [facility] Medical Records Department [address] [place] [address] Progress Note - Orthopedic 12/30/22 1050 MR#: [id number] Acct: [id number] Name: FRANCIE MORENO MERCEDES Rep #:[id number] : 1960 62 From: Leonel ORTA PA-C PCP: Dr. Duane Odom MD Status: ADM IN Location: [facility] FZ212-5 Subjective Subjective The patient was sitting in bed upon examination. Patient denies any chest pain,shortness of breath, dizziness, lightheadedness, or calf pain. Patient has beenhaving postoperative nausea and vomiting. Case was discussed with medicine. Patient does admit that she has had underlying nausea in the mornings and was recently taken off of her omeprazole due to her methotrexate treatment. Patienthas had hard time taking any oral medications and her pain has been elevated. Infectious disease has been consulted for appropriate management with IV antibiotics. Patient will require PICC line. Patient will also require postoperative assistance and case management is currently involved. Objective Data Objective Data Vital Signs: Vital Signs Temp Pulse Resp BP Pulse Ox O2 Del Method O2 Flow Rate 97.8 F 88 16 138/82 H 97 Nasal Cannula 2 12/30/22 09:16 12/30/22 09:16 12/30/22 09:16 12/30/22 09:16 12/30/22 09:16 12/30/22 09:16 12/30/22 09:16 Oxygen Flow Rate (L/min) 2 Oxygen Delivery Method Nasal Cannula Weight: 89.358 kg Body Mass Index (BMI) 36.0 Intake & Output: Intake and Output for Last 24 Hours 12/28/22 12/29/22 12/30/22 23:59 23:59 23:59 Intake Total 2292.33 / 2692.33 750 / 750 Output Total 175 / 175 Balance 2292.33 / 2517.33 575 / 575 Lab / Micro Data Result Diagrams: 12/30/22 06:15 12/30/22 06:15 Labs: Laboratory Results - last 24 hr 12/29/22 10:28: POC Glucose 78 12/29/22 16:31: POC Glucose 100 12/30/22 06:15: WBC 9.8, RBC 3.28 L, Hgb 9.5 L, Hct 30.5 L, MCV 93.0, MCH 29.0, MCHC 31.1 L, RDW Std Deviation 46.6 H, RDW Coeff of Daphne 13.9, Plt Count 281, MPV9.7 12/30/22 06:15: Sodium 135 L, Potassium 3.9, Chloride 104, Carbon Dioxide 28.0, Anion Gap 3 L, BUN 15, Creatinine 0.68, Estim Creat Clear Calc 66.97, Est GFR (MDRD) Af Amer 111, Est GFR (MDRD) Non-Af 92, BUN/Creatinine Ratio 21.9 H, Glucose 131 H, Calcium 8.4 L Micro: Microbiology 12/29/22 15:48 Incision/Surgical Site Wound Culture - Preliminary No growth-Final to follow 12/29/22 15:38 Incision/Surgical Site Wound Culture - Preliminary No growth-Final to follow 12/29/22 15:37 Incision/Surgical Site Wound Culture - Preliminary GPC Poss Enterococcus sp 12/24/22 13:48 Nasal Secretion Nasal Screen MRSA/MSSA - Final Radiography Diagnostic Testing: Radiology Impression Knee X-Ray 12/29/22 16:35 IMPRESSION: The femoral component of a total knee prosthesis in good position. Electronically Signed: Chris Collier MD at 17:47 EDT , Physical Exam Narrative Vital signs stable and afebrile. Patient is still currently on 2 L. Discussed with nursing and she does drop to the mid 80s when sleeping. Patient does have underlying sleep apnea Knee immobilizer is in place for left lower extremity. Patient is able to plantarflex and dorsiflex actively. Sensation is intact to light touch to saphenous, sural, superficial and deep peroneal, and tibial distribution. Dressing is clean dry and intact. Negative Homans bilaterally, negative signs and symptoms of DVT. Const alert and oriented x3 Assessment & Plan Assessment/Plan (1) Infected prosthetic knee joint: PLAN: 1. S/P left knee explant total knee replacement with placement of articulating antibiotic spacer with nonbiodegradable antibiotic delivery system POD #1 2. Continue Pain Medications: Tylenol, oxycodone 3. DVT Prophylaxis: Take 81 mg aspirin twice daily for 4 weeks postoperatively for DVT prophylaxis. Patient denies past history of DVT or pulmonary embolism 4. PT/OT: Patient will continue with physical therapy postoperatively with restrictions: Currently toe-touch weightbearing for 2 weeks with no range of motion of the left knee. Continue with the knee immobilizer. 5. H & H: 9.5/30.5, asymptomatic. Postoperative anemia secondary to acute blood loss from surgery without any intra operative complications. Patient currently takes folic acid. We will add in ferrous sulfate. 6. Infectious disease: Consult has been placed for management of antibiotics. Patient will require 6 weeks IV antibiotics and PICC line. Appreciate input with appropriate antibiotic coverage. Patient did have wound culture with Enterococcus species. Preoperatively patient had aspiration for Enterococcus faecalis. 7. Continue postoperative medical management per medicine: Case was discussed reviewed with medicine. Patient is having difficulty with nausea and vomiting. She is currently involved and will add in Protonix IV. Patient has had IV famotidine and she will increase this dose 1 time. Patient has had chronic nausea in the mornings in which she was taken off of her omeprazole due to methotrexate treatment. Patient also has underlying sleep apnea and will continue progressing off oxygen. 8. Encouraged Incentive Spirometry 9. Disposition: Patient will require postoperative assistance as she will be getting 6 weeks of IV antibiotics. Case management is currently involved. Would possibly like patient to go to the transitional care unit at [facility] as this will be helpful with infectious disease involved. Patient willrequire PICC line. Appreciate input on discharge planning for IV antibiotics. We will continue with input with regards to the nausea from medicine. I have reviewed the [place] Automated Rx Reporting System (OARRS) report for this patient for refill pattern and other prescriber involvement as part of the appropriate surveillance for the provision of acute and chronic controlled medications. The report was requested and reviewed on the date of this entry and was considered in the prescribing process. This dictation was created using voice recognition software. Phonetic and/or grammatical errors may exist. 12/30/22 1058 <Electronically signed by Leonel ORTA PA-C> Cosigner Signature (if applicable): CC: ~ Signed [facility] Work Phone: 1(221) 674-863704-26-[address] Martin [facility] December 29, 2022 8:50pm Note Date/Time December 29, 2022 7:[address] [facility] Medical Records Department [address] [facility] [facility] [place] [address] Progress Note - Hospitalist 12/29/221937 MR#: [id number] Acct: [id number] Name: FRANCIE MORENO Rep #:[id number] : 1960 62 From: Stephanie Martin DO PCP: Dr. Duane Odom MD Status: ADM IN Location: IA3 DL177-7 Reason for Visit Reason for Visit: Total Joint Infection Subjective Subjective Patient is a 62-year-old white female who has had previous left total knee arthroplasty done by Dr. Nathan light on 04/26/2021. Patient was followed up recently with repeat x-rays and inflammatory lab work secondary to pain. She does have rheumatoid arthritis at baseline and takes methotrexate and has been on immunosuppressive therapy otherwise in the past however is not currently. She was suffering from progressively worsening pain with weightbearing over the last 6 months and there was some radiographic evidence of loosening of the artificial joint. She denied fevers or chills but has required a cane for ambulatory assistance. She had joint aspiration which demonstrated increased intra-articular white blood cell count and an increased ESR and CRP. Cultures were positive for Enterococcus faecalis. She was brought to the hospital today for an explant of the left total knee with placement of antibiotic spacer. We have been consulted in the postoperative period for medical management of her chronic medical issues. I evaluated the patient postoperatively up on the medical floor. She was on complaining of pain in her knee postoperatively. It was just medicated with 5 mg and nursing was getting her another 5 mg per orders. She had some questions with regards to discharge planning. It sounds as if she will be discharged to the TCU. I told her she would stay here until Dr. Richard felt she was medicallystable for discharge and then depending on her insurance she would be able to goto transitional care unit. She was concerned that she may need to be there 6 weeks however it sounds like she will need 6 weeks of antibiotics and that does not necessarily mean she will need to be in the TCU for that length of time. She voiced understanding and stated she would discuss the matter further tomorrow with Dr. Rcihard. She will need precertification prior to discharge as she has a commercial Medicare product. Objective Data Objective Data Vital Signs: Vital Signs Temp Pulse Resp BP Pulse Ox O2 Del Method O2 Flow Rate 97.8 F 68 16 108/64 94 Room Air 4 12/29/22 18:33 12/29/22 18:33 12/29/22 18:33 12/29/22 18:33 12/29/22 18:33 12/29/22 18:33 12/29/22 17:21 Oxygen Flow Rate (L/min) 4 Oxygen Delivery Method Room Air Weight: 89.358 kg Body Mass Index (BMI) 36.0 Intake & Output: Intake and Output for Last 24 Hours 12/27/22 12/28/22 12/29/22 23:59 23:59 23:59 Intake Total 1933 Balance 1933 Lab / Micro Data Result Diagrams: 12/24/22 13:48 Labs: Laboratory Results - last 24 hr 12/29/22 10:28: POC Glucose 78 12/29/22 16:31: POC Glucose 100 Micro: Microbiology 12/24/22 13:48 Nasal Secretion Nasal Screen MRSA/MSSA - Final Radiography Diagnostic Testing: Radiology Impression Knee X-Ray 12/29/22 16:35 IMPRESSION: The femoral component of a total knee prosthesis in good position. Electronically Signed: Chris Collier MD at 17:47 EDT , Physical Exam Const alert, oriented x3, no apparent distress and well nourished Constitutional Narrative: Upper middle-aged, obese, white female, sitting up in bed, room is dark and television is on, patient appears comfortable and nontoxic HEENT head/scalp atraumatic and moist oral mucous membranes HEENT Narrative: Mallampati 3, no thrush Resp normal respiratory effort, no retractions, no use of accessory muscles and clearto auscultation bilaterally Auscultation: Negative for rales, rhonchi or wheezes Cardio regular rate, regular rhythm, S1 normal heart sound, S2 normal heart sound, no murmurs, no rub, no gallops and no clicks GI normal to inspection, nondistended, normoactive bowel sounds, soft to palpation and non-tender Extremity no clubbing, cyanosis or edema Extremity Narrative: 2+ pedal pulses, left lower extremity leg brace in place with BRUCE hose as well bilateral lower extremities Neuro oriented x3, CN's II-XII intact bilaterally and no focal motor deficits Speech: speech normal Psych Psych Narrative: Affect is flat and mood seems depressed Assessment & Plan Assessment/Plan (1) Infected prosthetic knee joint: PLAN: Plan Left knee periprosthetic joint infection -Postop day 0 from left knee explant of total knee replacement with placement ofan articulating antibiotic spacer -Pain management per primary -Toe-touch weightbearing x2 weeks followed by partial weightbearing -Range of motion exercises to start at 2 weeks -Continue knee immobilizer with no flexion -ID has been consulted for antibiotic management -Initial cultures show Enterococcus faecalis -PT/OT consultation for gait training -Case management/social work for discharge planning to skilled facility--> patient would like to transition to TCU once medically stable -Will need pre-CERT as patient has a commercial Medicare product CAD/HPL/HTN -SHILPI-LAD w/? 2.75 x 16 mm Promus Premier 04/26/2016 -Continue aspirin--> will be on 81 mg twice daily for DVT prophylaxis per orthopedic surgery recommendation -Continue lisinopril -Patient is not on statin due to intolerance -Clinically stable at this time Vitamin D deficiency -Continue ergocalciferol every Tuesday Seasonal allergies -Continue fexofenadine Rheumatoid arthritis -Patient has been on Biologics and methotrexate previously -Does not currently appear to be on anything -Pain medication per primary service GERD -Patient does not on any med occasion at this time Obesity -BMI 36 -Recommend weight loss -Complicates treatment, prognosis, outcomes DVT prophylaxis -81 mg aspirin p.o. twice daily per orthopedic surgery recommendations Charges/Coding Visit Charges Inpatient E&M: 14640 Subs Hosp L2 12/29/222049 <Electronically signed by Stephanie Martin DO> Nigel Signature (if applicable): CC: ~ Signed [facility] Work Phone: 1(341) 475-394304-26-2023 Procedure [facility] 12-29-2022 History and physical note Author Dr. Richard [facility] December 29, 2022 10:21am Note Date/Time December 17, 2022 1:1 7pm [facility] Medical Records Department [address] [place] [address] History & Physical Exam 12/17/22 1315 MR#: [id number] Acct: [id number] Name: FRANCIE MORENO Rep #:[id number] : 1960 62 From: Leonel ORTA PA-C PCP: Dr. Duane Odom MD Status: ADM IN Location: [facility] A-2 History and Physical History and Physical? Patient Name: Francie Moreno : 1960 From:? LEONEL SNOW PA-C? DATE OF SURGERY:? 12/31/2022 SCHEDULED PROCEDURE:? Explant left total knee implants with placement of antibiotic spacer HISTORY OF PRESENT ILLNESS: Preoperative history and physical exam was performed on December 17, 2022.? This amaury 62-year-old female who has had a previous left total knee arthroplasty by Dr. Lalit Charles on June 26, 2021.? Patient was followed postoperatively and recently with repeat x-rays and inflammatory lab work.? Patient does have underlying rheumatoid arthritis.? She has been on methotrexate however she has been on some immunosuppressive medications in the past.? Patient has had progressively worsening pain with weightbearing over the past 6 months.? There is been radiographic evidence of loosening.? She has tried Tylenol and medical dummies for relief.? She denies any recent fevers, chills however she does have hot flashes throughout the day.? She has been using a cane for ambulatory assistance.? Patient does report living with her daughter in the basement.? She has medical history pertinent for rheumatoid arthritis, coronary artery disease,previous heart attack and heart stent in 2016, sleep apnea, borderline anemia.? Patient does see one of the local cylinder dyer Dr. Graves.? We are sending for surgical clearance to the cylinder dyer.? We are also getting surgical clearance from the primary care physician Dr. Odom.? She denies recent chest pain, shortness of breath.? Patient did have aspiration which had positive criteria for intra-articular white blood cell count, PMN percentages, positive alpha defense and increased CRP.? She has positive cultures for Enterococcus faecalis.? After discussion with Dr. Otf Richard, the patient does wish to proceed with explant left total knee with placement of antibiotic spacer.? She denies past history of DVT or pulmonary embolism. REVIEW OF SYSTEMS: ROS: Const: Reports weight change, but denies change in appetite and fever. CV: Denies chest pain, heart murmur and irregular heartbeat. Resp: Denies cough, pneumonia, shortness of breath, tuberculosis and wheezing. GI: Reports diarrhea, but denies constipation, heartburn, nausea, rectal itching, bloody stools and vomiting. : Denies incontinence. Musculo: Reports gait disturbance, leg swelling, pain, trouble walking and weakness. Skin: Reports tattoo, but denies Raynaud's and history of shingles. Neuro: Reports dizziness but denies ambulatory dysfunction, numbness/tingling and tremor. Psych: Reports anxiety, insomnia and stress. Myles/Lymph: Reports anemia, bleeding/bruising tendency and past transfusion. Reviewed and updated. PAST MEDICAL HISTORY: Advance Care Plan: No Advance Directives Effective Date: 05/14/2020 PMH: Medical Problems: Arthritis - Rheumatoid? Coronary Artery Disease (CAD), Depression, Fibromyalgia, Heart Attack, Hypercholesterolemia, Osteoporosis, Sleep Apnea Covid-19 Vaccinated - (12/11/2020) (01/08/2021) Borderline Anemic - (01/2022) Accidents: RT Ankle - (2018) Surgical Hx: Heart Stent - (2015) RT Total Knee Replacement - (12/01/2020) EDMAR @ [facility] LT Knee, Total Joint Replacement - (06/26/2021) Dr Juan Charlse @ [facility] Anesthesia Complications: None Assistive Devices: Glasses, Cane, Walker Reviewed, no changes. SOCIAL HISTORY: SH: Marital: Single.Occupation: Disabled - (2017).Work Status: Disabled.Hand Dominance: Right-handed. Personal Habits:? Cigarette Use: Former.Smokeless Tobacco: Never Used Smokeless Tobacco.E-Cigarette Use: Never used.Alcohol: Has consumed alcohol in the past.Drug Use: Medical Marijuana Card.Enjoy Exercising: Never Exercises. Reviewed and updated. VITALS: Ht: 62.4 Wt: 198lb Wt k.813 BMI: 35.7 BP: 116/74 Pulse: 78 Resp: 18 T: 97.6 T: 36.4C Pain Level: 8 O2SatR: 99 ALLERGIES: No Known Drug Allergy? MEDICATIONS: Cefadroxil 500 mg 1 by mouth three times a day, Tizanidine HCL 4 mg 1 po qd at night, Vitamin D2 2000 Unit 1 po weekly, Tylenol Extra Strength 500 mg as needed, Allie Allergy 60 mg as needed, Lisinopril 20 mg 1 by mouth every day, Aspirin 81 mg prn, Folic Acid 1 mg 1 by mouth every day PRE-OP EXAM:? General appearance:NORMAL? ? ? Other: Eyes: Conjunctivae and lids: NORMAL? Pupils: ERR Ears, Nose, Mouth, and Throat: NORMAL? Other: Inspection of lips, teeth and gums: NORMAL? ?Other: Neck: Examination of neck: no masses noted. Respiratory: Assessment of respiratory effort: NORMAL? ?Other: ?Auscultation of lungs: clear to auscultation no wheezes, rhonchi or rales. Cardiovascular:? Auscultation of heart: regular rate and rhythm, no murmurs, gallops or rubs. PHYSICAL EXAMINATION: Patient currently presents today in a wheelchair during the preoperative visit however she is using a cane for ambulatory assistance.? Left knee has large effusion.? She has increased pain with any weightbearing.? There is pain and tenderness globally throughout the knee.? There is limited range of motion secondary to pain. IMAGING STUDIES: Previous x-rays reveal previous well fixed implant in February 2022 however there isbeen medial subsidence and anterior subsidence as well as radiographic lucenciesalong the cement mantle appreciated in May 2022.? There is been progression noted on most recent radiographs.? There is loosening of the tibial baseplate and likely femoral implant. Patient has had positive also defense and aspiration consistent with Enterococcus faecalis Previous CRP was 20.5 IMPRESSION: 1.? 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 Rheumatoid arthritis 3.? Coronary artery disease with previous heart attack and stent placement 2015 4.? Fibromyalgia 5.? Depression 6.? Hypercholesterolemia 7.? Sleep apnea 8.? Order line anemia 9.? Osteoporosis PLAN: Dr. Otf Richard did discuss and review with the patient all treatment options including surgical versus nonsurgical options.? Patient does wish to proceed with the above-stated procedure.? Potential risks, benefits, and complications of the procedure were discussed in detail including but not limited to , infection, nerve and blood vessel damage, persistent pain, numbness, tingling, paresthesias, blood clot, pulmonary embolism, and requirement for possible further surgery.? The patient expressed full understanding and has no further questions for the doctor.? Patient does agree to proceed with the above-stated procedure and has signed the surgery consent form. Plan for patient for post-operative medications are the following: DVT Prophylaxis: Patient denies past history of DVT or pulmonary embolism.? We will proceed with aspirin 81 mg twice daily for 4 weeks postoperatively.? I alsodiscussed in great detail patient will be on IV antibiotics for 6 weeks postoperatively and she will be following with infectious disease.? Patient currently resides with her daughter who has a full-time working position.? Patient will most likely need to be required to go to fci facility postoperatively for IV antibiotics.? I explained to her that this will be discussed and she will follow with case management postoperatively for appropriate discharge planning.? Explained she will require PICC line post-op for antibiotics. This dictation was created using voice recognition software. Phonetic and/or grammatical errors may exist. ___? I have re-examined the patient.? There are no clinical changes since date of exam. ___? See progress notes for changes. ___? Dictated on admission Date: ? ? ?Time: Signature: 12/17/22 1317 <Electronically signed by Leonel ORTA PA-C> Cosigner Signature (if applicable): CC: MEAGHAN Snow; Dr. Duane Odom MD; Dr. Otf Richard MD~ Signed ADDENDUM by Dr. Otf Richard MD on 12/29/22 at 1021 Addendum I have examined the patient and the H&P has been reviewed. There are no clinicalchanges since date of exam. 12/29/22 1021<Electronically signed by Otf Richard MD> Cosigner Signature (if applicable): cc: MEAGHAN Snow; Dr. Duane Odom MD; Dr. Otf Richard MD ~* Signed [facility] Work Phone: 1(553) 372-788203-20-2023 Miscellaneous Notes* Telephone Encounter - Shelly Su MD - 11/22/2022 11:35 AM EDT Labs all good She should d/w ortho regarding hardware loosening. She had a fall recently * Telephone Encounter - Laura Nelson LPN - 11/22/2022 10:55 AM EDT Patient wanted to know what the results are for her lab tests and xray results. Patient didn' know if the lab results were okay. Next appt is in January. Patient was asking if you would call her to explain the result while she looked them up on milabentt.Discussed she would need to schedule a virtual visit. Patient thought the xray noted the hardware was loosening on left knee. Patient concerned about theimpression below. Patient states she can hardly walk. Patient thought she should follow up with herOrthopedic surgeon but wanted to see what you thought first. 11/17/2022 XRAY LEFT KNEE IMPRESSION: Postsurgical changes as described. Lucencies are noted medial and lateral tibial flange can be seen in setting of hardware loosening. Laura Nelson LPN documented [facility]03-20-[facility]23 Miscellaneous Notes* Telephone Encounter - Laura Nelson LPN - 11/22/2022 11:25 AM EDT Patient called stating the Pharmacy will not refill her MTX because they told her the Omeprazole will increase the SE of MTX. Patient states this is a new prescription for her and she was previously receiving infusions. Patient states she stopped the Omeprazole on 11/20/2022. Patient thinks she was started on Omeprazole in 2015 because prednisone was aggravating her stomach. Is it okay to fill the MTX? Requested Prescriptions Pending Prescriptions Disp Refills methotrexate 2.5 mg tablet 24 tablet 1 Sig: Take 6 tablets by mouth one time a week. as directed. Patient last appointment: 11/15/2022 Next Appointment: 01/04/2023 Patient Phone numbers: [phone] (home) Request is for script(s) to be escript to pharmacy. [facility]/pharmacy #[id number] [place] [address] - [address] - [phone] [facility] [id number] Laura Nelson LPN documented in this encounterGalion [facility]03-13-2023 History of Present illness Narrative* RT Sage(R) - 11/15/2022 2:45 PM EDT Radiology Service Progress Note PATIENT NAME: Francie Moreno DATE OF SERVICE: November 15, 2022 TIME: 2:45 PM PATIENT IDENTITY VERIFICATION COMPLETED USING TWO (2) IDENTIFIERS: Name and Date of confirmedby patient verbally. FALL SCREENING: Has the patient had 2 falls in the last year or 1 fall with injury or currently using an Ambulatory Assistive Device (Walker, Cane, Wheelchair, Crutches, etc.)? No PATIENT GENDER DATA: Female. status: : No status: NO. PATIENT RELEVANT IMPLANT DATA REVIEWED: Not Applicable RADIOLOGY DEPARTMENT: General X-ray: Exam(s) Completed: Lower Extremity X- Ray(s): Knee, AP / LAT Left PERIPHERAL IV DATA: Not applicable SIGNED BY: RT Sage(R) November 15, 2022 2:45 PM documented in this encounterGalion Hospital02-07-2023 History of Present illness Narrative* Shelly Su MD - 10/12/2022 1:41 PM EST Images from the original note were not included. RHEUMATOLOGY PROGRESS NOTE VIRTUAL VISIT PROGRESS NOTE This is a virtual visit using HIPAA compliant video platform. It required patient-provider interaction for the medical decision making as documented below using milabentt. This is a virtual visit using Language123 video visit. It required patient-provider interaction for themedical decision making as documented below. HPI: Francie Moreno is a 61 year old female seen for RA. Had reaction to inflectra. Dose was changed and it went okay first time. Second infusion - heart beating fast, face turned red. Throat closing up She wants to try medical marijuana. Reports redness on face, hot flashes, multiple bowel movements, rib cage discomfort. Also takes Cymbalta. She feels more fatigue, lightheaded. She was told that she has anemia and started iron tabs. Also takes vit B12, vit D Tingling in body and chest heaviness with second infusion. throat closing. Received IV benadryl. Advised slower infusion and with pre meds.they restarted slower infusion and she did well. She gets her infusion at [facility]. 3rd infusion 11/09/2021 (10 min in) got heaviness in chest but not as bad as before. Improved with eating/drinking. Then felt fibro flared up on lateral side of hips, hand pain lasted 1/2 day On Cymbalta 60 mg for fibromyalgia, depression (lost best friend 10/2021). More hair loss. Also diagnosed with ANN Changed from Actemra to Inflectra IV 5mg/kg/dose week 0,2,6 and then every 8 weeks 07/20/2021 was first infusion d/t possible gut perforation from Actemra HCQ made her feel sick, nausea, d/c Left TKR 06/26/2021 right TKR 12/01/20 Had total left knee replacement 06/26/2021 at [facility] Dr. Charles. Hgb 7, had blood transfusion Was on Actemra IV 10/2018-04/2021. Stopped d/t with recent ileal focal erosions and concern for gut perforation. CAD stent 2015 Brief Rheumatological history - Patient was diagnosed with RA 2 years ago - MTX gave nausea after one month, Humira every other wek and then very week for 5 months - did not help. She has been on prednisone for 2 years and would like to be off of it completely. Sh is unable to walk when she is of prednisone. Hr last visit with sole assessor was in . She also has BMD, x rays, blood work in apr. She was also presribed SSZ which did not help. Had steroid injection. Leflunamide did not hlp RA involved knees and hands. At present she reports swelling of knees. On prednisone She also has fibromyalgia and reports sharp pain with every step. tail bone pain H/o [place] in 2016. episodes of dizziness and was on Holter monitor. Poor historian. She will be seeing ortho next week for ankle injury. In the first visit, She had a knee aspiration performed. Synovial fluid was inflammatory.Continue to have active synovitis despite and brittle and also local reaction. Actemra infusions were [facility] per patient's request however she failed to show up for the infusion. Family history of autoimmune disease: aunt and cousin with RA Smoking status: Tobacco Use: .5 packs/day Quit 04/22/2016. Types: Cigarettes HISTORY REVIEWED (electronic chart updated): PAST MEDICAL HISTORY Diagnosis Date Coronary artery disease Fibromyalgia Osteoarthritis PMH - PAST MEDICAL HISTORY OF depression Rheumatoid arthritis (HCC) PAST SURGICAL HISTORY Procedure Laterality Date BIOPSY BREAST 2002 fibroadenoma CC PCI CORONARY INTERVENT LAPS ABD PRTM&OMENTUM DX W/WO SPEC BR/WA SPX Laparoscopy lysis of adhesions LIG/TRNSXJ FLP TUBE ABDL/VAG APPR UNI/BI Tubal ligation PAST SURGICAL HISTORY OF 08/2011 colonoscopy- bleeding ulcer PAST SURGICAL HISTORY OF Right Total right knee replacement PAST SURGICAL HISTORY OF Left Total left knee replacement UPPER GI FAMILY HISTORY Problem Relation Age of Onset Heart Father Breast Cancer Paternal Aunt other (kidney cancer) Paternal Aunt other (brain cancer) Sister Social History Tobacco Use Smoking status: Former Packs/day: 0.50 Types: Cigarettes Quit date: 04/22/2016 Years since quittin.4 Smokeless tobacco: Never Vaping Use Vaping Use: Never used Substance Use Topics Alcohol use: Yes Comment: rarely Drug use: Yes Types: Marijuana Comment: Medical Marijuana Card Current Outpatient Medications Medication Sig OTC NUTRITIONAL SUPPLEMENT Take 1 Cap-Full by mouth once daily. Multi-GI 5 PO one capful daily ergocalciferol 50,000 unit capsule (VITAMIN D2, DRISDOL) TAKE 1 CAPSULE BY MOUTH ONE TIME PER WEEK mv-mn/folic ac/calcium/vit K1 (WOMEN'S 50 PLUS MULTIVITAMIN ORAL) Take 1 tablet by mouth once daily. biotin 5,000 mcg subl Dissolve 1 tablet under the tongue once daily. inFLIXimab-dyyb (INFLECTRA) 100 mg injection Inflectra IV 5mg/kg/dose week 0,2,6 and then every 8 weeks. Please draw CBC, CMP, ESR, CRP every 4 months lisinopril (ZESTRIL, PRINIVIL) 10 mg tablet Take 20 mg by mouth once daily. tiZANidine (ZANAFLEX) 4 mg tablet Take 4 mg by mouth every 6 hours as needed. Acetaminophen 500 mg cap Take by mouth as needed. aspirin, enteric coated (ASPIRIN, ENTERIC COATED) 81 mg EC tablet Take 81 mg by mouth once daily. fexofenadine (ALLIE) 180 mg tablet Take 180 mg by mouth once daily. omeprazole (PRILOSEC) 20 mg capsule Take 20 mg by mouth once daily. No current facility-administered medications for this visit. ALLERGIES Allergen Reactions Mold Other: See Comments sneezing/sinus infections Pollen Itching REVIEW OF SYSTEMS: GENERAL: no recent change in weight, admits to fatigue PHYSICAL EXAMINATION: VIDEO EXAM: (if completed, performed via video enabled technology) GENERAL: alert and appropriate, in no distress, well-hydrated, well nourished and happy, smiling, interactive ASSESSMENT: (M25.50) Pain in joint, multiple sites (primary encounter diagnosis) (M05.79) Rheumatoid arthritis involving multiple sites with positive rheumatoid factor (HCC) (Z79.899) High risk medication use 61-year-old female is here for follow up. Patient was previously diagnosed with rheumatoid arthritis and has been on methotrexate, Humira, leflunomide, Orencia, Enbrel and sulfasalazine without much benefit. Joints are predominantly involved. Knee joint was aspirated in the first visit and Synovialfluid was inflammatory. Was on Actemra IV from 10/2018 until 04/2021, found to have ileal focal erosions, would like to stop Actemra given potential complications of gut perforation. Started Renflexis, 07/20/2021 and overall doing well. No loading dose? Severe nausea on HCQ, ok to d/c. Has had bl TKR. PCP started on Cymbalta which is helping with pain, fibromyalgia and depression which had made her more tired on this. Fatigue could be multifactorial - ANN, meds related, anemia, OA PLAN: Adverse effect to inflectra. Will dc. May consider dmard again or Rinvoq/xeljanz. In office appt There are no Patient Instructions on file for this visit. Time: 21 min Shelly Su MD [facility] History of Present illness Narrative* Magda Carrasco RN - 09/21/2022 11:05 AM EST This nurse spoke with Dr. Shelly Su MD in regards to patients reaction with infusion today. Pt treated per PRN medications and reactions of flushing, SOB Spo2 97% no coughing or visible SOB noted, and nausea subsided. Pt is requesting to stop treatment and states once patient is no longer exhibiting s/sx of reactions, she may go. Dr. Su wants patient to set up visit to discuss options, patient notified and states that she has an appointment on 10/12/22 and will follow up then. [facility]11[facility] Miscellaneous Notes* Addendum Note - Jen Mcneil PA-C - 07/13/2022 5:32 PM ESTAddended by: JEN MCNEIL on: 07/13/2022 05:32 PM Modules accepted: Orders * Telephone Encounter - Jen Mcneil PA-C - 07/13/2022 5:31 PM EST We will need to discuss her medications with whoever is prescribing for her blood pressure. Please check and make sure her vitals were okay and EKG when seen by EMS. If needed, make sure she schedules with PCP to discuss I did lower her dose to 4 mg/kg of the infusion, I would still like her to proceed with this. Jen Mcneil PA-C * Telephone Encounter - Stephanie Stevenson Billet Straightener - 07/13/2022 4:02 PM EST Patient called, you saw her yesterday. She went to her sisters last night and she fainted. Sister thought she was having a stroke or seizure - she stuck her fingers down her throat, thought she was swallowing her tongue. They called EMS (she was in [place], lives in [place]) they put an EKG on here, o2 sat and bp - they did not transport her to a facility. Patient said she had went out to dinner, had a couple beers, her lisinopril (?) had been adjusted, so didn't know if that contributed. Said she had covid 3 weeks ago, she's on abx - not sure if that didn't agree with alcohol. She was to get inflextra today, but they cancelled due to her reaction. She said you know that she had reaction to inflectra too. She then called back an said you changed med - they rescheduled to 07/27 - I thinkalane wanted to talk to you. She also is on mychart, if you want to send her a message - but I told her we would get back to her. Stephanie Stevenson [place] documented [facility]11-[facility]22 Miscellaneous Notes* Telephone Encounter - Kelly Myles Pss - 07/13/2022 4:03 PM EST Patient rescheduled due to medication change. Patient notified of new date/time. * Telephone Encounter - Kelly Myles Pss - 07/13/2022 2:53 PM EST Contacted patient and rescheduled for tomorrow. Patient unsure if she is too weak for treatment dueto being sick recently and passing out yesterday. Instructed to contact ordering provider. Next appt will need scheduled if patient arrives tomorrow for appt. * Telephone Encounter - Kelly Myles Pss - 07/13/2022 10:41 AM EST Appt canceled. Patient will be contacted this afternoon to reschedule. * Telephone Encounter - Kitty Melgoza - 07/13/2022 8:24 AM EST Pt called to cancel treatment today, 07/13/22. She is not feeling well. She can be called to r/s butasks that it be this afternoon. documented in this [facility]08-26-2022 Miscellaneous Notes* Telephone Encounter - Magda Hernandez - 04/30/2022 3:13 PM EDT Spoke with patient and rescheduled. Magda Hernandez * Telephone Encounter - Kitty Melgoza - 04/30/2022 8:09 AM EDT Pt called. She needs to r/s today's appt. She is unable to come. documented [facility] this [facility] Miscellaneous Notes* Telephone Encounter - Saba Pulido - 02/24/2022 11:10 AM EDT No Show Documentation Francie Mayes Moreno no showed for an appointment on 02.24.22 with Shelly Su MD at [facility]. She was scheduled for 10:40a. I called and spoke with the patient regarding her missed appointment. Francie stated the reason that she missed her appointment was because PT was sitting in zoom waiting.. Resources discussed/offered to patient: yes No show determined to be fault of patient: Yes This is the patients first no show in the last 12 months. Patient was rescheduled for 03/02/22 @ 10a. Letter mailed : Yes Is this the Third or Fourth No Show? No Saba Pulido February 24, 2022 11:10 AM documented in this [facility]05-23-[facility] Miscellaneous Notes* Telephone Encounter - Laura Nelson LPN - 01/25/2022 11:49 AM EDT Left detailed vm to let patient know labs have been ordered. Laura Nelson LPN * Addendum Note - Jen Mcneil PA-C - 01/25/2022 11:11 AM EDT Addended by: JEN MCNEIL on: 01/25/2022 11:11 AM Modules accepted: Orders * Telephone Encounter - Jen Mcneil PA-C - 01/25/2022 11:10 AM EDT Labs ordered Jen Mcneil PA-C * Telephone Encounter - Laura Nelson LPN - 01/25/2022 10:28 AM EDT Patient is scheduled for an office visit on 02/04/2022 for RA. It looks like the patient needs lab orders. Her infusion on 01/12/2022 was stopped early (see infusion center note) and it doesn't look like they denita any labs. Laura Nelson LPN documented [facility]05-10-[facility] History of Present illness Narrative* Rosalina Reagan RN - 01/12/2022 11:09 AM EDT 1147 patient put light on stated she felt panicky, tight in throat, nauseated and hot. Medication stopped and IVF normal saline started at KVO. VS checked. 1155 Patient states still has that panic feeling and nausea but tightness in throat is gone. 1156 DR Ko at bedside. Medications given: see NOV 1221 patient states she feels normal again no symptoms BP 121/84 HR 100, Oxygen sat 100 % on room air [address] Su's office went to so paged her via the [facility] paging system left message below: (Dr Su Francie Moreno is here in [place] for her treatment after 20 min she began to feel hot, nauseated, throat tight, and feeling of panic. Drip stopped and Dr Ko came to bedside. Zofran, Hydrocortisone, benadryl and Ativan was given, (Dr Ko added the Ativan) after about an hour she is asymptomatic. [phone] Rosalina BENAVIDES) documented in this [facility]05-06-2022 Miscellaneous Notes* Telephone Encounter - Eden Franco - 01/08/2022 8:51 AM EDT Rescheduled appointment for next Friday 01/12 @ 1:30, could not get ahold of pt but left a message letting pt know the date and time of appointment. Also let pt know to call back if she has any questions or would like to reschedule. Eden Farnco PSS * Telephone Encounter - Kitty Melgoza - 01/07/2022 4:31 PM EDT Pt is not able to come to 01/08/22 treatment. Would like to r/s. Can do Tuesday, Tuesday or Tuesday next week any time after 1 pm. documented in this encounter[facility]04-21-2022 Miscellaneous Notes* Telephone Encounter - Jaylene Acosta MA - 12/24/2021 9:01 AM EDT Pharmacy faxed requesting the following refill. Pending Prescriptions Disp Refills ERGOCALCIFEROL (VITAMIN D2) 1,250 MCG (50,000 UNIT) CAPSULE 12 capsule 3 Sig: TAKE 1 CAPSULE BY MOUTH ONE TIME PER WEEK LILLY: Yes Patient last appointment: 11/16/2021 [place] Next Appointment: 02/04/2022 [place] Patient Phone numbers: [phone] (home) Request is for script(s) to be escript to pharmacy. Dave Mariee MA documented in this encounter[facility]01-18-2019 History of Past illness Narrative* Problem Noted Date Resolved Date RA (rheumatoid arthritis) 09/22/20182022 documented as of this encounter (statuses as of 11/22/2022) [facility] of [facility] illness Narrative* Problem Noted Date Resolved Date RA (rheumatoid arthritis) 09/22/20182022 documented as of this encounter (statuses as of 11/22/2022) [facility] of [facility] illness Narrative* Problem Noted Date Resolved Date RA (rheumatoid arthritis) 09/22/20182022 documented as of this encounter (statuses as of 12/01/2022) [facility] of [facility] illness Narrative* Problem Noted Date Resolved Date RA (rheumatoid arthritis) 09/22/20182022 documented as of this encounter (statuses as of 01/05/2023) [facility] of [facility] illness Narrative* Problem Noted Date Resolved Date RA (rheumatoid arthritis) 09/22/20182022 documented as of this encounter (statuses as of 02/23/2023) [facility] note* Diagnosis Onset Date Resolution Status Hyperlipidemia acute Atherosclerosis of coronary artery of [place] heart without angina pectoris chronic Essential hypertension chron ic History of coronary artery stent placement April [facility] Work Phone: 1(550) 833-936008-22-2016 Evaluation note* Diagnosis Onset Date Resolution Status Hyperlipidemia acute Essential hypertension chron ic History of coronary artery stent placement April chronic Infected prosthetic knee joint acute [facility] Work Phone: 1(475) 460-295908-22-2016 Evaluation note* Diagnosis Onset Date Resolution Status Essential hypertension chron ic History of coronary artery stent placement April chronic Infected prosthetic knee joint acute Anemia acute Debility acute Depression acute Fibromyalgia acute Hyperlipidemia acute Infected prosthetic knee joint acute Osteoporosis acute Rheumatoid arthritis acute History of non-ST elevation myocardial infarction (NSTEMI) April 26, 2016 resolved [facility] Work Phone: 1(902) 437-925208-22-2016 Evaluation note* Diagnosis Onset Date Resolution Status Essential hypertension chron ic History of coronary artery stent placement April chronic Infected prosthetic knee joint resolved Anemia acute Depression acute Fibromyalgia acute Hyperlipidemia acute Osteoporosis acute Rheumatoid arthritis acute Debility resolved History of non-ST elevation myocardial infarction (NSTEMI) April 26, 2016 resolved Infected prosthetic knee joint resolved [facility] Work Phone: 1(963) 422-205408-22-2016 Evaluation note* Diagnosis Onset Date Resolution Status Essential hypertension chron ic History of coronary artery stent placement April chronic Infected prosthetic knee joint resolved Anemia acute Depression acute Fibromyalgia acute Hyperlipidemia acute Osteoporosis acute Rheumatoid arthritis acute Debility resolved History of non-ST elevation myocardial infarction (NSTEMI) April 26, 2016 resolved Infected prosthetic knee joint resolved 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 acute Status post total knee replacement, right acute [facility] Work Phone: Discharge summary Author [facility] December 31, 2022 1:58pm Note Date/Time December 31, 2022 1:5 2pm [facility] Medical Records Department [address] [place] [id number] Transfer to [facility] MR#: [id number] Acct: [id number] Name: FRANCIE MORENO Rep #:[id number] : 1960 62 From: Leonel ORTA PA-C PCP: Dr. Duane Odom MD Status: ADM IN Certification of patient admission REQUIRED AT TIME OF ADMISSION. I CERTIFY THAT POST-HOSPITAL F SERVICES ARE REQUIRED TO BE GIVEN ON AN IN-PATIENT BASIS BECAUSE OF THE ABOVE NAMED PATIENT'S NEED FOR ALF CARE ON A CONTINUING BASIS FOR THE CONDITION(S) FOR WHICH HE/SHE WAS RECEIVING IN-PATIENT HOSPITAL SERVICES PRIOR TO HIS/HER TRANSFER TO THE [facility]. 12/31/22 8443<Electronically signed by Leonel ORTA PA-C> Diet Diet Order/Speech Therapy: 12/29/22 23:54 Diet: Regular - General Is pt able to select menu?: Yes Routine Orders/Code Status O2 Liters per Minute: 2 L at nighttime due to sleep apnea and drop in O2 saturation O2 Frequency: PRN Routine Lab Work: CBC (January 02, 2023) Code Status: Full Code Wound(s) LEFT KNEE: Wound Type: Surgical Incision (Currently with Mepilex dressing. Okay to remove Mepilex dressing on January 04, 2023. She can shower and get this dressing wet. Once dressing has been removed only gentle soap and water over the incision. No flexion of the knee.) Therapies Weight Bearing: Toe-touch weight bearing (Toe-touch weightbearing with walker. Knee immobilizer must be in place at all times and no flexion of the knee.) Extremity Affected:: Left Lower Physical Therapy: Eval and Treat (Toe-touch weightbearing with walker. Knee immobilizer at all times and no flexion of the left knee.) Problem/Diagnosis (1) Infected prosthetic knee joint: Status: Acute Code(s): T84.59XA - Infection and inflammatory reaction due to other internal joint prosthesis, initial encounter; Z96.659 - Presence of unspecified artificial kneejoint Plan: 1. S/P left knee explant total knee replacement with placement of articulating antibiotic spacer with nonbiodegradable antibiotic delivery system POD #2 2. Continue Pain Medications: Tylenol, oxycodone 3. DVT Prophylaxis: Take 81 mg aspirin twice daily for 4 weeks postoperatively for DVT prophylaxis. Patient denies past history of DVT or pulmonary embolism 4. PT/OT: Patient will continue with physical therapy postoperatively with restrictions: Currently toe-touch weightbearing for 2 weeks with no range of motion of the left knee. Continue with the knee immobilizer. 5. H & H: 9.1/28.3, asymptomatic. Postoperative anemia secondary to acute blood loss from surgery without any intra operative complications. Patient currently takes folic acid. We will add in ferrous sulfate. 6. Infectious disease: Consult has been placed for management of antibiotics. Patient will require 6 weeks IV antibiotics and PICC line. Appreciate input with appropriate antibiotic coverage. Patient did have wound culture with Enterococcus species. Preoperatively patient had aspiration for Enterococcus faecalis. Prescription for ampicillin is on chart and patient will follow lab work per infectious disease 7. Continue postoperative medical management per medicine: Case was discussed reviewed with medicine. Patient's nausea has improved and she will continue on oral Protonix. I did discuss with her following up with her primary care physician once she has been discharged from the hospital with regards to her nausea. We also discussed her sleep apnea in great detail. I recommend outpatient follow-up with primary care physician for sleep study. She states this was discussed before but due to COVID patient never went through with any further referral. 8. Encouraged Incentive Spirometry 9. Disposition: Patient overall is orthopedically stable. She will continue with postoperative restrictions as listed above. She has 2-week postoperative follow- up already scheduled with our office for x-rays, wound check, staple removal and overall assessment. She has had pre-CERT obtained and has been okayed to be discharged to the transitional care unit. Case was discussed with medicine and they were also okay for discharge today as long as she is going to follow-up with PCP on outpatient basis for her nausea and sleep apnea. Prescriptions will be attached to chart. She will contact her office with any concerns or questions once discharge from [facility]. Case was also discussed with case management. I have reviewed the [place] Automated Rx Reporting System (OARRS) report for this patient for refill pattern and other prescriber involvement as part of the appropriate surveillance for the provision of acute and chronic controlled medications. The report was requested and reviewed on the date of this entry and was considered in the prescribing process. This dictation was created using voice recognition software. Phonetic and/or grammatical errors may exist. Allergies/Procedures Done in Hospital Allergies No Known Allergies Allergy (Verified 12/29/22 10:36) Procedures: - (Left knee explant total knee replacement with placement of articulating antibiotic spacer with nonbiodegradable antibiotic delivery system:December 29, 2022) Type of Care/Length of Stay Estimated LOS: More Than 30 Days Type of Care Needed: Skilled Rehab Potential: Good Prognosis: Good Additional Orders/Day of Discharge Day of Discharge: 12/31/22 Discharge Plan Admission Admit Date/Time: 12/29/22 08:58 Attending Provider: Otf Richard Primary Care Provider: Duane Odom Consulting Providers: Gerald Balbuena ; Ct Claire Discharge Orders/Prescriptions Prescriptions: New ampicillin sodium 2 gram Recon Soln 2 g IV Q6 41 Days Qty: 164 0RF Rx Instructions: stop date 02/09/23 dx: prosthetic joint infection weekly bmp, cbc, and esr. Fax to [phone] ferrous sulfate [FeroSul] 325 mg (65 mg iron) Tablet 325 mg PO 1200,1700 14 Days Qty: 0 0RF aspirin 81 mg Tablet,Chewable 81 mg PO BIDCM 30 Days Qty: 0 0RF Rx Instructions: Take 81 mg aspirin twice daily for 4 weeks postoperatively for DVT prophylaxis. oxycodone 5 mg Tablet 5 - 10 mg PO Q4H PRN PRN (Reason: Pain Score 4-10) 7 Days Qty: 30 0RF sennosides-docusate sodium [Stool Softener-Stimulant Laxat] 8.6-50 mg Tablet 2 tab PO BID Qty: 0 0RF Rx Instructions: Take until first bowel movement, then as needed pantoprazole 40 mg Tablet,Delayed Release (Dr/Ec) 40 mg PO DAILY Qty: 0 0RF Continued tizanidine 4 mg tablet 4 mg PO QHS Label Comments: TAKE 1 TABLET BY MOUTH AT BEDTIME NEEDED fexofenadine 60 MG tablet 60 mg PO DAILY PRN (Reason: Allergies) acetaminophen 500 mg Tablet 1,000 mg PO Q8 PRN (Reason: Pain) Qty: 90 0RF ergocalciferol (vitamin D2) 50,000 UNIT capsule 50,000 unit PO Mejia@1000 folic acid 1 mg Tablet 1 mg PO DAILY lisinopril 10 mg tablet 20 mg PO DAILY Discontinued aspirin [Adult Low Dose Aspirin] 81 mg tablet,delayed release (DR/EC) 81 mg PO DAILY cefadroxil 500 mg Capsule 500 mg PO TID Referrals / Follow Up: Duane Odom MD [Primary Care Provider] - Ciera Goddard PA [Med Staff - [facility]] - 01/12/23 1:15 pm Disposition Disposition (needs filled in before D/C Order can be placed): Jail Facility 12/31/22 6545 <Electronically signed by Leonel ORTA PA-C> Cosigner Signature (if applicable): CC: Dr. Duane Odom MD; Dr. Ct Claire MD; Dr. Gerald Balbuena MD ~ [facility] Work Phone: Evaluation noteNo assessment information available [facility] Work Phone: Evaluation note* Diagnosis Vitamin D deficiency Unspecified vitamin D deficiency [facility] Diagnosis Rheumatoid arthritis of multiple sites without organ or system involvement with positive rheumatoid factor (HCC)- Primary [facility]* Diagnosis Rheumatoid arthritis of multiple sites without organ or system involvement with positive rheumatoid factor (HCC)- Primary documented in this encounter [facility] note* Diagnosis Rheumatoid arthritis of multiple sites without organ or system involvement with positive rheumatoid factor (HCC)- Primary documented in this encounter [facility] note* Diagnosis Rheumatoid arthritis of multiple sites without organ or system involvement with positive rheumatoid factor (HCC)- Primary documented in this encounter [facility]* Diagnosis Rheumatoid arthritis of multiple sites without organ or system involvement with positive rheumatoid factor (HCC)- Primary documented in this encounter [facility] note* Diagnosis Pain in joint, multiple sites- Primary Rheumatoid arthritis involving multiple sites with positive rheumatoid factor (HCC) High risk medication use Encounter for long-term (current) use of other medications documented in this encounter [facility] note* Diagnosis Acute pain of left knee documented in this encounter [facility] note* Diagnosis Pain in joint, multiple sites documented in this encounter [facility] note* Diagnosis Pain in joint, multiple sites documented in this encounter [facility] note* Diagnosis Rheumatoid arthritis of multiple sites without organ or system involvement with positive rheumatoid factor (HCC)- Primary High risk medication use Encounter for long-term (current) use of other medications Low back pain, unspecified back pain laterality, unspecified chronicity, unspecified whether sciatica present Infective arthritis (HCC) Unspecified infective arthritis, site unspecified documented in this encounter [facility] note* Diagnosis Onset Date Resolution Status Infected prosthetic knee joint resolved Anemia acute Depression acute Fibromyalgia acute Hyperlipidemia acute Osteoporosis acute Rheumatoid arthritis acute Debility resolved History of non-ST elevation myocardial infarction (NSTEMI) April 26, 2016 resolved Infected prosthetic knee joint resolved 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 acute Status post total knee replacement, right acute [facility] Work Phone: Evaluation note* Diagnosis Onset Date Resolution Status Anemia acute Depression acute Fibromyalgia acute Hyperlipidemia acute Osteoporosis acute Rheumatoid arthritis acute Debility resolved History of non-ST elevation myocardial infarction (NSTEMI) April 26, 2016 resolved Infected prosthetic knee joint resolved 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 acute Status post total knee replacement, right acute [facility] Work Phone: Evaluation note* Diagnosis Onset Date Resolution Status Status post revision of total replacement of left knee acute Status post total knee replacement, right acute [facility] Work Phone: Evaluation note* Diagnosis Rheumatoid arthritis of multiple sites without organ or system involvement with positive rheumatoid factor (HCC)- Primary High risk medication use Encounter for long-term (current) use of other medications Abnormal SPEP Other nonspecific findings on examination of blood [facility] Rheumatoid arthritis of multiple sites without organ or system involvement with positive rheumatoid factor (HCC)- Primary High risk medication use Encounter for long-term (current) use of other medications Fibromyalgia Mylagia and myositis, unspecified Frequent urination Urinary frequency [facility] Diagnosis Onset Date Resolution Status Admit Date Dyspnea on exertion acute February 06, 2025 2:48pm Rapid palpitations acute February 062024 2:48pm Essential hypertension chronic Ju 2024 2:48pm History of coronary artery stent placement April 26, 2016 chronic February 06, 2025 2:48pm Hyperlipidemia deleted February 06, 2025 2:48pm [facility] Work Phone: Evaluation note* Diagnosis Pain in joint, multiple sites- Primary Vitamin D deficiency Unspecified vitamin D deficiency Rheumatoid arthritis with rheumatoid factor of multiple sites without organ or systems involvement (HCC) Fibromyalgia Mylagia and myositis, unspecified Infection and inflammatory reaction due to internal left knee prosthesis, initial encounter [facility] Diagnosis High risk medication use- Primary Encounter for long-term (current) use of other medications [facility] Diagnosis Iron deficiency anemia, unspecified iron deficiency anemia type- Primary Rheumatoid arthritis of multiple sites without organ or system involvement with positive rheumatoid factor (HCC) [facility] Diagnosis Rheumatoid arthritis of multiple sites without organ or system involvement with positive rheumatoid factor (HCC)- Primary High risk medication use Encounter for long-term (current) use of other medications Iron deficiency anemia, unspecified iron deficiency anemia type documented [facility]* Diagnosis Rheumatoid arthritis of multiple sites without organ or system involvement with positive rheumatoid factor (HCC)- Primary [facility] Pain in joint, multiple sites- Primary Vitamin D deficiency Unspecified vitamin D deficiency Diarrhea, unspecified type Rheumatoid arthritis involving multiple sites with positive rheumatoid factor (HCC) [facility] Author Leonel Snow [facility] December 31, 2022 1:47pm Note Date/Time December 31, 2022 1:4 7pm [facility] Medical Records Department [address] [place] [address] Progress Note - Orthopedic 12/31/22 1341 MR#: [id number] Acct: [id number] Name: FRANCIE MORENO Rep #:[id number] : 1960 62 From: Leonel ORTA PA-C PCP: Dr. Duane Odom MD Status: ADM IN Location: [place] [address] Subjective Subjective The patient was sitting in bed upon examination. Patient denies any chest pain,shortness of breath, dizziness, lightheadedness, nausea or vomiting, or calf pain. Pain is controlled on medications. No adverse overnight events. Patientoverall looks much better today upon examination. Nausea has improved in which medicine has adjusted medications. Patient has also been seen by infectious disease in which PICC line has been established and she is currently on ampicillin. She has had approval and pre-CERT to go to the transitional care unit today. Infectious disease will monitor the patient while in the transitional care unit. Patient does have underlying sleep apnea and she has been utilizing 2 L of O2 while sleeping. Nursing states she does drop to 84% - 86% when sleeping. Patient has not had any sleep studies outpatient but she states it has been discussed with her primary care physician. While awake patient's O2 saturation is greater than 95% on room air. She denies any chest pain or shortness of breath. Objective Data Objective Data Vital signs stable and afebrile. Knee immobilizer in place. This was opened up and dressing is clean dry and intact Patient is able to plantarflex and dorsiflex actively. Sensation is intact to light touch to saphenous, sural, superficial and deep peroneal, and tibial distribution. Dressing is clean dry and intact. Negative Homans bilaterally, negative signs and symptoms of DVT. Vital Signs: Vital Signs Temp Pulse Resp BP Pulse Ox O2 Del Method O2 Flow Rate 98.5 F 88 16 134/68 H 95 Nasal Cannula 2 12/31/22 09:07 12/31/22 09:07 12/31/22 09:07 12/31/22 09:07 12/31/22 10:05 12/31/22 10:05 12/31/22 10:05 Oxygen Flow Rate (L/min) 2 Oxygen Delivery Method Nasal Cannula Weight: 89.358 kg Body Mass Index (BMI) 36.0 Intake & Output: Intake and Output for Last 24 Hours 12/29/22 12/30/22 12/31/22 23:59 23:59 23:59 Intake Total 2292.33 / 2692.33 1410 / 1710 1643.5 / 1643.5 Output Total 225 / 225 Balance 2292.33 / 2517.33 1185 / 1485 1643.5 / 1643.5 Lab / Micro Data Result Diagrams: 12/31/22 05:10 12/31/22 05:10 Labs: Laboratory Results - last 24 hr 12/31/22 05:10: WBC 6.1, RBC 3.08 L, Hgb 9.1 L, Hct 28.3 L, MCV 91.9, MCH 29.5, MCHC 32.2, RDW Std Deviation 46.5 H, RDW Coeff of Daphne 13.9, Plt Count 258, MPV 9.6 12/31/22 05:10: Sodium 138, Potassium 4.0, Chloride 107, Carbon Dioxide 30.0, Anion Gap 1 L, BUN 10, Creatinine 0.62, Estim Creat Clear Calc 73.46, Est GFR (MDRD) Af Amer 124, Est GFR (MDRD) Non-Af 102, BUN/Creatinine Ratio 16.0, Glucose 113 H, Calcium 8.4 L, Total Bilirubin 0.30, Direct Bilirubin 0.14, AST 11 L, ALT 15, Alkaline Phosphatase 83, Total Protein 6.2 L, Albumin 2.8 L, Globulin 3.4 Micro: Microbiology 12/31/22 09:30 Nasal Secretion SARS-CoV-2 Antigen (Rapid) - Final 12/29/22 15:48 Incision/Surgical Site Gram Stain - Final 12/29/22 15:48 Incision/Surgical Site Wound Culture - Preliminary GNR non consulting solution manager 12/29/22 15:37 Incision/Surgical Site Gram Stain - Final 12/29/22 15:37 Incision/Surgical Site Wound Culture - Final Enterococcus faecalis 12/29/22 15:38 Incision/Surgical Site Gram Stain - Final 12/29/22 15:38 Incision/Surgical Site Wound Culture - Preliminary No growth-Final to follow 12/24/22 13:48 Nasal Secretion Nasal Screen MRSA/MSSA - Final Physical Exam Narrative Vital signs stable and afebrile. Patient is still currently on 2 L. Discussed with nursing and she does drop to the mid 80s when sleeping. Patient does have underlying sleep apnea Knee immobilizer is in place for left lower extremity. Patient is able to plantarflex and dorsiflex actively. Sensation is intact to light touch to saphenous, sural, superficial and deep peroneal, and tibial distribution. Dressing is clean dry and intact. Negative Homans bilaterally, negative signs and symptoms of DVT. Const alert and oriented x3 Assessment & Plan Assessment/Plan (1) Infected prosthetic knee joint: PLAN: 1. S/P left knee explant total knee replacement with placement of articulating antibiotic spacer with nonbiodegradable antibiotic delivery system POD #2 2. Continue Pain Medications: Tylenol, oxycodone 3. DVT Prophylaxis: Take 81 mg aspirin twice daily for 4 weeks postoperatively for DVT prophylaxis. Patient denies past history of DVT or pulmonary embolism 4. PT/OT: Patient will continue with physical therapy postoperatively with restrictions: Currently toe-touch weightbearing for 2 weeks with no range of motion of the left knee. Continue with the knee immobilizer. 5. H & H: 9.1/28.3, asymptomatic. Postoperative anemia secondary to acute blood loss from surgery without any intra operative complications. Patient currently takes folic acid. We will add in ferrous sulfate. 6. Infectious disease: Consult has been placed for management of antibiotics. Patient will require 6 weeks IV antibiotics and PICC line. Appreciate input with appropriate antibiotic coverage. Patient did have wound culture with Enterococcus species. Preoperatively patient had aspiration for Enterococcus faecalis. Prescription for ampicillin is on chart and patient will follow lab work per infectious disease 7. Continue postoperative medical management per medicine: Case was discussed reviewed with medicine. Patient's nausea has improved and she will continue on oral Protonix. I did discuss with her following up with her primary care physician once she has been discharged from the hospital with regards to her nausea. We also discussed her sleep apnea in great detail. I recommend outpatient follow-up with primary care physician for sleep study. She states this was discussed before but due to COVID patient never went through with any further referral. 8. Encouraged Incentive Spirometry 9. Disposition: Patient overall is orthopedically stable. She will continue with postoperative restrictions as listed above. She has 2-week postoperative follow- up already scheduled with our office for x-rays, wound check, staple removal and overall assessment. She has had pre-CERT obtained and has been okayed to be discharged to the transitional care unit. Case was discussed with medicine and they were also okay for discharge today as long as she is going to follow-up with PCP on outpatient basis for her nausea and sleep apnea. Prescriptions will be attached to chart. She will contact her office with any concerns or questions once discharge from [facility]. Case was also discussed with case management. I have reviewed the [place] Automated Rx Reporting System (OARRS) report for this patient for refill pattern and other prescriber involvement as part of the appropriate surveillance for the provision of acute and chronic controlled medications. The report was requested and reviewed on the date of this entry and was considered in the prescribing process. This dictation was created using voice recognition software. Phonetic and/or grammatical errors may exist. 12/31/22 1347 <Electronically signed by Leonel ORTA PA-C> Cosigner Signature (if applicable): CC: ~ Signed [facility] Work Phone: Reason for referral (narrative)* Diagnostic Procedure Only (Routine) - Closed Specialty Diagnoses / Procedures Referred By Elke olson Referred To Contact XR IMAGING Diagnoses Acute pain of left knee Procedures XR KNEE INJURY 4V AP/LAT/OBLS LEFT RADIOLOGIC EXAM KNEE COMPLETE 4/MORE VIEWS Shelly Su MD [address] [facility] [address] [place] [address] Xr Imaging Referral ID Status Reason Start Date Expiration Date V isits Requested Visits Authorized [id number] Closed Auto-Generate d Referral 11/15/2022 12/15/2023 1 1 [facility] for referral (narrative)* Diagnostic Procedure Only (Routine) - Pending Review Specialty Diagnoses / Procedures Referred By Contac t Referred To Contact XR IMAGING Diagnoses Low back pain, unspecified back pain laterality, unspecified chronicity, unspecified whether sciatica present Procedures XR SACROILIAC JOINTS 2V AP PELVIS/FERGUESON RADIOLOGIC EXAMINATION SACROILIAC JNTS <3 VIEWS Shelly Su MD [address] [place] [address] Xr Imaging Referral ID Status Reason Start Date Expiration Date Visits Requested Visits Authorized [id number] Pending Review Auto-Generat ed Referral 02/23/2023 03/24/2024 1 1 * Diagnostic Procedure Only (Routine) - Pending Review Specialty Diagnoses / Procedures Referred By Contac t Referred To Contact XR IMAGING Diagnoses Low back pain, unspecified back pain laterality, unspecified chronicity, unspecified whether sciatica present Procedures XR LUMBAR GENERAL 3V AP/LAT/L5-S1 RADEX SPINE LUMBOSACRAL 2/3 VIEWS Shelly Su MD [address] [place] [address] Xr Imaging Referral ID Status Reason Start Date Expiration Date Visits Requested Visits Authorized [id number] Pending Review Auto-Generat ed Referral 02/23/2023 03/24/2024 1 1 [facility] ([facility]arrative)No reason for referral information availableWOhio[facility] Work Phone: Reason for visit Narrative* Diagnostic Procedure Only (Routine) - Closed Specialty Diagnoses / Procedures Referred By Contac t Referred To Contact XR IMAGING Diagnoses Acute pain of left knee Procedures XR KNEE INJURY 4V AP/LAT/OBLS LEFT RADIOLOGIC EXAM KNEE COMPLETE 4/MORE VIEWS Shelly Su MD [address] [place] [address] Xr Imaging Referral ID Status Reason Start Date Expiration Date V isits Requested Visits Authorized [id number] Closed Auto-Generate d Referral 11/15/2022 12/15/2023 1 1 [facility] Summary Purpose Family History No Family History Records Found Relationship Condition Age at Onset Recorded Date/T darron mother Hypertension Unknown Cerebrovascular accident (CVA) Unknown sister Malignant neoplasm Unknown father Cardiac disease Unknown Advance Directives No Advanced Directives Records Found Advance Directive Response Recorded Date/ Time Living Will No June 30 3:40pm Power of Rn Recovery No June 30, 2021 3:40pm Advance Directive Response Recorded Date/ Time Living Will No December 29, 2022 7:12pm Power of Rn Recovery No December 29 7:12pm Advance Directive Response Recorded Date/ Time Living Will No January 03, 2023 2: 56pm Power of Rn Recovery No January 03, 2023 2:56pm Advance Directive Response Recorded Date/ Time Living Will Yes March 02, 2023 1:29pm Power of Rn Recovery Yes March 02 1:29pm Advance Directive Response Recorded Date/ Time Name of Medical Power of Rn Recovery JOSE ALEJANDRO WHARTON March 02, 2023 1:29pm Name of Medical Power of Rn Recovery NOT LISTED April 06, 2023 5:11pm Living Will Yes April 06, 2023 5:11pm Power of Rn Recovery Yes April 06 5:11pm Advance Directive Response Recorded Date/ Time Name of Medical Power of Rn Recovery NOT LISTED April 06, 2023 4:11pm Living Will Yes April 06, 2023 4:11pm Power of Rn Recovery Yes April 06 4:11pm Advance Directive Response Recorded Date/ Time Do you have a Healthcare Power of Rn Recovery? No February 01, 2025 11:08am Chief Complaint and Reason for Visit Chief Complaint L TKR. RX HERE E ORDER Chief Complaint E ORDER Chief Complaint E ORDER 6 M FU (MOVED FROM 09/16) Reason for Visit Hyperlipidemia Atherosclerosis of coronary artery of [place] heart without angina pectoris Essential hypertension History of coronary artery stent placement Chief Complaint KNEE SURGERY CLEAR. (MMM HAS FORM) EXPLANT TOTAL KNEE IMPLANTS LT, PLACE SPACER EXPLANT TOTAL KNEE IMPLANTS LT, PLACE SPACER EXPLANT TOTAL KNEE IMPLANTS LT, PLACE SPACER EXPLANT TOTAL KNEE IMPLANTS LT, PLACE SPACER Reason for Visit Hyperlipidemia Essential hypertension History of coronary artery stent placement Infected prosthetic knee joint Chief Complaint KNEE SURGERY CLEAR. (MMM HAS FORM) EXPLANT TOTAL KNEE IMPLANTS LT, PLACE SPACER EXPLANT TOTAL KNEE IMPLANTS LT, PLACE SPACER EXPLANT TOTAL KNEE IMPLANTS LT, PLACE SPACER EXPLANT TOTAL KNEE IMPLANTS LT, PLACE SPACER EXPLANT TOTAL KNEE IMPLATS LT, PLACE SPACER Reason for Visit Essential hypertensi on History of coronary artery stent placement Infected prosthetic knee joint Anemia Debility Depression Fibromyalgia Hyperlipidemia Infected prosthetic knee joint Osteoporosis Rheumatoid arthritis History of non-ST elevation myocardial infarction (NSTEMI) Chief Complaint KNEE SURGERY CLEAR. (MMM HAS FORM) EXPLANT TOTAL KNEE IMPLANTS LT, PLACE SPACER EXPLANT TOTAL KNEE IMPLANTS LT, PLACE SPACER EXPLANT TOTAL KNEE IMPLANTS LT, PLACE SPACER EXPLANT TOTAL KNEE IMPLANTS LT, PLACE SPACER EXPLANT TOTAL KNEE IMPLATS LT, PLACE SPACER Infection and inflammatory reaction due to interna Reason for Visit Essential hypertensi on History of coronary artery stent placement Infected prosthetic knee joint Anemia Depression Fibromyalgia Hyperlipidemia Osteoporosis Rheumatoid arthritis Debility History of non-ST elevation myocardial infarction (NSTEMI) Infected prosthetic knee joint Chief Complaint KNEE SURGERY CLEAR. 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, right Chief Complaint EXPLANT TOTAL KNEE I MPLANTS LT, PLACE SPACER EXPLANT TOTAL KNEE IMPLANTS LT, PLACE SPACER EXPLANT TOTAL KNEE IMPLATS LT, PLACE SPACER LT KNEE REMOVAL SPACER, TOTAL KNEE Infection and inflammatory reaction due to interna E ORDER S EKG Reason for Visit Infected prosthetic knee joint Anemia Depression Fibromyalgia Hyperlipidemia Osteoporosis Rheumatoid arthritis Debility History of non-ST elevation myocardial infarction (NSTEMI) 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, right Chief Complaint EXPLANT TOTAL KNEE I MPLATS LT, PLACE SPACER LT KNEE REMOVAL SPACER, TOTAL KNEE Infection and inflammatory reaction due to interna E ORDER S EKG E ORDER Reason for Visit Anemia Depression Fibromyalgia Hyperlipidemia Osteoporosis Rheumatoid arthritis Debility History of non-ST elevation myocardial infarction (NSTEMI) 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, right Chief Complaint E ORDER S EKG E ORDER Encounter for general adult medical examination wi ABN MAMM LT BREAST Reason for Visit 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, right Chief Complaint EKG E ORDER Encounter for general adult medical examination wi ABN MAMM LT BREAST Reason for Visit 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, right Chief Complaint Admit Date lightheaded February 01, 2025 11:07 am 48 HR [employer] February 01, 2025 2:35 pm Chief Complaint Admit Date lightheaded February 01, 2025 11:07 am S/P [facility] 02/01February 06, 2025 2:48p m Reason for Visit Admit Date Dyspnea on exertion February 06, 2025 2:48p m Rapid palpitations February 06, 2025 2:48p m Essential hypertension February 06, 2025 2: 48pm History of coronary artery stent placeme nt February 06, 2025 2:48pm Hyperlipidemia February 06, 2025 2:48p m Chief Complaint Admit Date lightheaded February 01, 2025 11:07 am S/P [facility] 02/01February 06, 2025 2:48p m INT LAB ORDERS February 06, 2025 3:49p m Reason for Visit Admit Date Dyspnea on exertion February 06, 2025 2:48p m Essential hypertension February 06, 2025 2: 48pm History of coronary artery stent placeme nt February 06, 2025 2:48pm Rapid palpitations February 06, 2025 2:48p m Hyperlipidemia February 06, 2025 2:48p m Chief Complaint Admit Date lightheaded February 01, 2025 11:07 am S/P [facility] 02/01February 06, 2025 2:48p m INT LAB ORDERS February 06, 2025 3:49p m RAPID PALPITATIONS; POST ED VISIT March 122024 2:01pm Chief Complaint Admit Date lightheaded February 01, 2025 11:07 am S/P [facility] 02/01February 06, 2025 2:48p m INT LAB ORDERS February 06, 2025 3:49p m SOB March 21, 2025 7:23 am Shortness of breath March 21, 2025 12:2 4pm Medications Administered Section Inactive Administered Medications - up to 3 most recent administrations Medication Order MAR Action Action Date Dose Rate Site diphenhydrAMINE 25 mg injection (BENADRYL) 25 mg, INTRAVENOUS, ONCE, 1 dose, On Tue01/12/22 at 1100 Given 01/12/2022 11:09 AM EDT 25 mg diphenhydrAMINE 50 mg injection (BENADRYL) 50 mg, INTRAVENOUS, NEEDED, 1 dose, Starting on Tue01/12/22 at 1053, Until Tue01/12/22 at 1200, Administer per hypersensitivity/anaphylaxis grading in nursing communication Given 01/12/2022 12:00 PM EDT 50 mg hydrocortisone sodium succinate (PF) 100 mg injection (Solu-CORTEF) 100 mg, INTRAVENOUS, NEEDED, 1 dose, Starting on Tue01/12/22 at 1053, Until Tue01/12/22 at 1203, Administer per hypersensitivity/anaphylaxis grading in nursing communication Given 01/12/2022 12:03 PM EDT 100 mg inFLIXimab-abda 400 mg in NaCl 0.9% 250 mL (RENFLEXIS) 400 mg (rounded from 431 mg = 5 mg/kg/dose 86.2 kg Order-specific weight), INTRAVENOUS, at 125 mL/hr, Administer over 2 Hours, ONCE, 1 dose, On Tue01/12/22 at 1100, TOTAL VOLUME: . EXP: 01/13/22 @ 11:00 Administer with 0.2 micron filter. Restarted 01/12/2022 12:41 PM EDT 125 mL/hr New Bag/Syringe/Bottle 01/12/2022 11:25 AM EDT 400 mg 125 mL/hr LORazepam 0.5 mg injection (ATIVAN) 0.5 mg, INTRAVENOUS, ONCE, 1 dose, On Tue01/12/22 at 1230, Giving for infusion reaction. Dilute IV dose with equal volume of compatible diluent (D5W, NS, SWFI) prior to IV administration. Given 01/12/2022 12:28 PM EDT 0.5 mg ondansetron (PF) 8 mg injection (ZOFRAN) 8 mg, INTRAVENOUS, NEEDED, 1 dose, Starting on Tue01/12/22 at 1053, Until Tue01/12/22 at 1203, for nausea WITH vomiting Given 01/12/2022 12:03 PM EDT 8 mg Inactive Administered Medications - up to 3 most recent administrations Medication Order MAR Action Action Date Dose Rate Site acetaminophen 650 mg tab(s) (TYLENOL) 650 mg, ORAL, ONCE, 1 dose, On Tue03/05/22 at 0930, No more than 4000 mg of acetaminophen should be given per day (FROM ALL SOURCES), If ordered PRN for pain, patient/guardian may elect to receive this medication for higher pain levels INSTEAD of the opioid, if preferred: N/A Given 03/05/2022 9:41 AM EDT 650 mg diphenhydrAMINE 25 mg injection (BENADRYL) 25 mg, INTRAVENOUS, ONCE, 1 dose, On Tue03/05/22 at 0930 Given 03/05/2022 9:41 AM EDT 25 mg inFLIXimab-abda 400 mg in NaCl 0.9% 250 mL (RENFLEXIS) 400 mg (rounded from 431 mg = 5 mg/kg/dose 86.2 kg Order-specific weight), INTRAVENOUS, at 125 mL/hr, Administer over 2 Hours, ONCE, 1 dose, On Tue03/05/22 at 0930, TOTAL VOLUME = 250 mL. EXP: Administer with 0.2 micron filter. New Bag/Syringe/Bottle 03/05/2022 10:00 AM EDT 400 mg 67 mL/hr Inactive Administered Medications - up to 3 most recent administrations Medication Order MAR Action Action Date Dose Rate Site diphenhydrAMINE 25 mg injection (BENADRYL) 25 mg, INTRAVENOUS, ONCE, 1 dose, On Tue05/18/22 at 1100 Given 05/18/2022 11:11 AM EDT 25 mg inFLIXimab-abda 400 mg in NaCl 0.9% 250 mL (RENFLEXIS) 400 mg (rounded from 431 mg = 5 mg/kg/dose 86.2 kg Order-specific weight), INTRAVENOUS, at 125 mL/hr, Administer over 2 Hours, ONCE, 1 dose, On Tue05/18/22 at 1100, TOTAL VOLUME = 250 mL. Administer with 0.2 micron filter. New Bag/Syringe/Bottle 05/18/2022 11:28 AM EDT 400 mg 125 mL/hr Inactive Administered Medications - up to 3 most recent administrations Medication Order MAR Action Action Date Dose Rate Site diphenhydrAMINE 25 mg injection (BENADRYL) 25 mg, INTRAVENOUS, ONCE, 1 dose, On Tue07/27/22 at 0900 Given 07/27/2022 9:15 AM EST 25 mg inFLIXimab-dyyb 344.8 mg in NaCl 0.9% 250 mL (INFLECTRA) 344.8 mg (4 mg/kg/dose 86.2 kg Order-specific weight), INTRAVENOUS, at 83.33-250 mL/hr, Administer over 1-3 Hours, ONCE, 1 dose, On Tue07/27/22 at 0900, Total Volume: = 250 mL Administer with 0.2 micron filter. New Bag/Syringe/Bottle 07/27/2022 9:32 AM EST 344.8 mg 83.33 mL/hr Inactive Administered Medications - up to 3 most recent administrations Medication Order MAR Action Action Date Dose Rate Site diphenhydrAMINE 25 mg injection (BENADRYL) 25 mg, INTRAVENOUS, ONCE, 1 dose, On Tue09/21/22 at 0930 Given 09/21/2022 9:52 AM EST 25 mg inFLIXimab-dyyb 344.8 mg in NaCl 0.9% 250 mL (INFLECTRA) 344.8 mg (4 mg/kg/dose 86.2 kg Order-specific weight), INTRAVENOUS, at 83.33-250 mL/hr, Administer over 1-3 Hours, ONCE, 1 dose, On Tue09/21/22 at 0930, Total Volume: = 250 mL exp 1000 09/22/22 (room temp) Administer with 0.2 micron filter. New Bag/Syringe/Bottle 09/21/2022 10:43 AM EST 344.8 mg 125 mL/hr ondansetron (PF) 8 mg injection (ZOFRAN) 8 mg, INTRAVENOUS, NEEDED, 1 dose, Starting on Tue09/21/22 at 0921, Until Tue09/21/22 at 1110, for nausea WITH vomiting Given 09/21/2022 11:10 AM EST 8 mg Additional Source Comments INFORMATION SOURCE (unrecogn ized section and content) DATE CREATED AUTHOR 02/22/2018 [facility] DATE CREATED AUTHOR AUTHOR'S ORGANIZ ATION 09/11/2019 [facility] DATE CREATED AUTHOR AUTHOR'S ORGANIZ ATION 03/17/2025 [facility] DATE CREATED AUTHOR AUTHOR'S ORGANIZ ATION 05/10/2025 [facility] DATE CREATED AUTHOR AUTHOR'S SAMEER BEAULIEU 05/26/2025 [facility] Goals (unrecognized section and content) Goals may be documented in a n alternate sectionGoals may be documented in an alternate sectionGoals may be documented in an alternate sectionGoals may be documented in an alternate sectionGoals may be documented in an alternate sectionGoals may be documented in an alternate sectionGoals may be documented in an alternate sectionGoals may be documented in an alternate sectionGoals may be documented in an alternate section Source Comments (unrecognize d section and content) In the event this informatio n is protected by the Federal Confidentiality of Alcohol and Drug Abuse Patient Records regulations: The Federal rules restrict any use of the information to criminally investigate or prosecute any alcohol or drug abuse patient.[facility] HospitalIn the event this information is protected by the Federal Confidentiality of Alcohol and Drug Abuse Patient Records regulations: The Federal rules restrict any use of the information to criminally investigate or prosecute any alcohol or drug abuse patient.[facility] HospitalIn the event this information is protected by the Federal Confidentiality of Alcohol and Drug Abuse Patient Records regulations: The Federal rules restrict any use of the information to criminally investigate or prosecute any alcohol or drug abuse patient.[facility] HospitalIn the event this information is protected by the Federal Confidentiality of Alcohol and Drug Abuse Patient Records regulations: The Federal rules restrict any use of the information to criminally investigate or prosecute any alcohol or drug abuse patient.[facility] HospitalIn the event this information is protected by the Federal Confidentiality of Alcohol and Drug Abuse Patient Records regulations: The Federal rules restrict any use of the information to criminally investigate or prosecute any alcohol or drug abuse patient.[facility] HospitalIn the event this information is protected by the Federal Confidentiality of Alcohol and Drug Abuse Patient Records regulations: The Federal rules restrict any use of the information to criminally investigate or prosecute any alcohol or drug abuse patient.[facility] HospitalIn the event this information is protected by the Federal Confidentiality of Alcohol and Drug Abuse Patient Records regulations: The Federal rules restrict any use of the information to criminally investigate or prosecute any alcohol or drug abuse patient.[facility] HospitalIn the event this information is protected by the Federal Confidentiality of Alcohol and Drug Abuse Patient Records regulations: The Federal rules restrict any use of the information to criminally investigate or prosecute any alcohol or drug abuse patient.[facility] HospitalIn the event this information is protected by the Federal Confidentiality of Alcohol and Drug Abuse Patient Records regulations: The Federal rules restrict any use of the information to criminally investigate or prosecute any alcohol or drug abuse patient.[facility] HospitalIn the event this information is protected by the Federal Confidentiality of Alcohol and Drug Abuse Patient Records regulations: The Federal rules restrict any use of the information to criminally investigate or prosecute any alcohol or drug abuse patient.[facility] HospitalIn the event this information is protected by the Federal Confidentiality of Alcohol and Drug Abuse Patient Records regulations: The Federal rules restrict any use of the information to criminally investigate or prosecute any alcohol or drug abuse patient.[facility] HospitalIn the event this information is protected by the Federal Confidentiality of Alcohol and Drug Abuse Patient Records regulations: The Federal rules restrict any use of the information to criminally investigate or prosecute any alcohol or drug abuse patient.[facility] HospitalIn the event this information is protected by the Federal Confidentiality of Alcohol and Drug Abuse Patient Records regulations: The Federal rules restrict any use of the information to criminally investigate or prosecute any alcohol or drug abuse patient.[facility] HospitalIn the event this information is protected by the Federal Confidentiality of Alcohol and Drug Abuse Patient Records regulations: The Federal rules restrict any use of the information to criminally investigate or prosecute any alcohol or drug abuse patient.[facility] HospitalIn the event this information is protected by the Federal Confidentiality of Alcohol and Drug Abuse Patient Records regulations: The Federal rules restrict any use of the information to criminally investigate or prosecute any alcohol or drug abuse patient.[facility] HospitalIn the event this information is protected by the Federal Confidentiality of Alcohol and Drug Abuse Patient Records regulations: The Federal rules restrict any use of the information to criminally investigate or prosecute any alcohol or drug abuse patient.[facility] HospitalIn the event this information is protected by the Federal Confidentiality of Alcohol and Drug Abuse Patient Records regulations: The Federal rules restrict any use of the information to criminally investigate or prosecute any alcohol or drug abuse patient.[facility] HospitalIn the event this information is protected by the Federal Confidentiality of Alcohol and Drug Abuse Patient Records regulations: The Federal rules restrict any use of the information to criminally investigate or prosecute any alcohol or drug abuse patient.[facility] HospitalIn the event this information is protected by the Federal Confidentiality of Alcohol and Drug Abuse Patient Records regulations: The Federal rules restrict any use of the information to criminally investigate or prosecute any alcohol or drug abuse patient.[facility] HospitalIn the event this information is protected by the Federal Confidentiality of Alcohol and Drug Abuse Patient Records regulations: The Federal rules restrict any use of the information to criminally investigate or prosecute any alcohol or drug abuse patient.[facility] HospitalIn the event this information is protected by the Federal Confidentiality of Alcohol and Drug Abuse Patient Records regulations: The Federal rules restrict any use of the information to criminally investigate or prosecute any alcohol or drug abuse patient.[facility] HospitalIn the event this information is protected by the Federal Confidentiality of Alcohol and Drug Abuse Patient Records regulations: The Federal rules restrict any use of the information to criminally investigate or prosecute any alcohol or drug abuse patient.[facility] HospitalIn the event this information is protected by the Federal Confidentiality of Alcohol and Drug Abuse Patient Records regulations: The Federal rules restrict any use of the information to criminally investigate or prosecute any alcohol or drug abuse patient.[facility] HospitalIn the event this information is protected by the Federal Confidentiality of Alcohol and Drug Abuse Patient Records regulations: The Federal rules restrict any use of the information to criminally investigate or prosecute any alcohol or drug abuse patient.[facility] HospitalIn the event this information is protected by the Federal Confidentiality of Alcohol and Drug Abuse Patient Records regulations: The Federal rules restrict any use of the information to criminally investigate or prosecute any alcohol or drug abuse patient.[facility] HospitalIn the event this information is protected by the Federal Confidentiality of Alcohol and Drug Abuse Patient Records regulations: The Federal rules restrict any use of the information to criminally investigate or prosecute any alcohol or drug abuse patient.[facility] HospitalIn the event this information is protected by the Federal Confidentiality of Alcohol and Drug Abuse Patient Records regulations: The Federal rules restrict any use of the information to criminally investigate or prosecute any alcohol or drug abuse patient.[facility] HospitalIn the event this information is protected by the Federal Confidentiality of Alcohol and Drug Abuse Patient Records regulations: The Federal rules restrict any use of the information to criminally investigate or prosecute any alcohol or drug abuse patient.[facility] HospitalIn the event this information is protected by the Federal Confidentiality of Alcohol and Drug Abuse Patient Records regulations: The Federal rules restrict any use of the information to criminally investigate or prosecute any alcohol or drug abuse patient.[facility] HospitalIn the event this information is protected by the Federal Confidentiality of Alcohol and Drug Abuse Patient Records regulations: The Federal rules restrict any use of the information to criminally investigate or prosecute any alcohol or drug abuse patient.[facility] HospitalIn the event this information is protected by the Federal Confidentiality of Alcohol and Drug Abuse Patient Records regulations: The Federal rules restrict any use of the information to criminally investigate or prosecute any alcohol or drug abuse patient.[facility] HospitalIn the event this information is protected by the Federal Confidentiality of Alcohol and Drug Abuse Patient Records regulations: The Federal rules restrict any use of the information to criminally investigate or prosecute any alcohol or drug abuse patient.[facility] HospitalIn the event this information is protected by the Federal Confidentiality of Alcohol and Drug Abuse Patient Records regulations: The Federal rules restrict any use of the information to criminally investigate or prosecute any alcohol or drug abuse patient.[facility] HospitalIn the event this information is protected by the Federal Confidentiality of Alcohol and Drug Abuse Patient Records regulations: The Federal rules restrict any use of the information to criminally investigate or prosecute any alcohol or drug abuse patient.[facility] HospitalIn the event this information is protected by the Federal Confidentiality of Alcohol and Drug Abuse Patient Records regulations: The Federal rules restrict any use of the information to criminally investigate or prosecute any alcohol or drug abuse patient.[facility] HospitalIn the event this information is protected by the Federal Confidentiality of Alcohol and Drug Abuse Patient Records regulations: The Federal rules restrict any use of the information to criminally investigate or prosecute any alcohol or drug abuse patient.[facility] HospitalIn the event this information is protected by the Federal Confidentiality of Alcohol and Drug Abuse Patient Records regulations: The Federal rules restrict any use of the information to criminally investigate or prosecute any alcohol or drug abuse patient.[facility] HospitalIn the event this information is protected by the Federal Confidentiality of Alcohol and Drug Abuse Patient Records regulations: The Federal rules restrict any use of the information to criminally investigate or prosecute any alcohol or drug abuse patient.[facility] HospitalIn the event this information is protected by the Federal Confidentiality of Alcohol and Drug Abuse Patient Records regulations: The Federal rules restrict any use of the information to criminally investigate or prosecute any alcohol or drug abuse patient.[facility] HospitalIn the event this information is protected by the Federal Confidentiality of Alcohol and Drug Abuse Patient Records regulations: The Federal rules restrict any use of the information to criminally investigate or prosecute any alcohol or drug abuse patient.[facility] HospitalIn the event this information is protected by the Federal Confidentiality of Alcohol and Drug Abuse Patient Records regulations: The Federal rules restrict any use of the information to criminally investigate or prosecute any alcohol or drug abuse patient.[facility] HospitalIn the event this information is protected by the Federal Confidentiality of Alcohol and Drug Abuse Patient Records regulations: The Federal rules restrict any use of the information to criminally investigate or prosecute any alcohol or drug abuse patient.[facility] HospitalIn the event this information is protected by the Federal Confidentiality of Alcohol and Drug Abuse Patient Records regulations: The Federal rules restrict any use of the information to criminally investigate or prosecute any alcohol or drug abuse patient.[facility] HospitalIn the event this information is protected by the Federal Confidentiality of Alcohol and Drug Abuse Patient Records regulations: The Federal rules restrict any use of the information to criminally investigate or prosecute any alcohol or drug abuse patient.[facility] HospitalIn the event this information is protected by the Federal Confidentiality of Alcohol and Drug Abuse Patient Records regulations: The Federal rules restrict any use of the information to criminally investigate or prosecute any alcohol or drug abuse patient.[facility] Reason for Visit (unrecogniz ed section and content) Reason Comments Non-Chemotherapy Treatment Specialty Diagnoses / Procedures Referred By Contac t Referred To Contact Diagnoses Rheumatoid arthritis of multiple sites without organ or system involvement with positive rheumatoid factor (HCC) Procedures INJECTION, RENFLEXIS Q5104 Renflexis (Inflectra) pa [id number] Q5103 Inflectra pa [id number] Shelly Su MD [address] [facility] [address] [place] [address] [facility] [address] [place] [address] Referral ID Status Reason Start Date Expiration Date V isits Requested Visits Authorized Authorized 06/19/2021 09/04/2023 99 99 Reason Comments Infusion Referral ID Status Reason Start Date Expiration Date V isits Requested Visits Authorized Authorized 06/19/2021 09/04/2022 99 99 Referral ID Status Reason Start Date Expiration Date V isits Requested Visits Authorized Authorized 06/19/2021 09/04/2022 12 12 Reason Comments Refill Request Reason Comments Appointment Cancelled Reason Comments Orders Reason Comments No Show Reason Comments Patient Update Reason Comments Joint Pain Reason Comments Patient Question Reason Onset Date Comments Refill Request 11/22/2022 Reason Comments Erroneous encounter-disregard Reason Comments Rheumatoid Arthritis 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 Patient Update Reason Comments Appointment Reason Comments Joint Pain Reason Comments Patient Update Medication Problem Reason Comments Rheumatoid Arthritis Reason Comments Med Change Request Reason Comments Results Reason Comments RITUXAN BRAND - APPROVED Rituxan Brand, [place] - Completed by the pharmacy team Reason Comments Chemotherapy Treatment Specialty Diagnoses / Procedures Referred By Contac t Referred To Contact Diagnoses Rheumatoid arthritis of multiple sites without organ or system involvement with positive rheumatoid factor (HCC) Procedures INJ RUXIENCE, 10 MG INJECTION, RITUXIMAB, 10 MG Shelly Su MD [address] [facility] [address] [place] [address] Phone: tel: fax: Hematology/Oncology [address] [place] [address] Phone: tel: fax: Referral ID Status Reason Start Date Expiration Date Visits Requested Visits Authorized [id number] Authorized Patient Cleared INN/SMCP Payor Auth Obtained 02/27/2025 02/27/2026 4 4 Care Teams (unrecognized sec tion and content) Operations And Intelligence Assistant Relationship Specialty Start Date End Date Henrry Odom MD [address] [place], [place] [address] PCP - General Family Practice 06/02/18 Operations And Intelligence Assistant Relationship Specialty Start Date End Date Henrry Odom MD [address] [place], [place] [address] PCP - General Family Practice 06/02/18 Operations And Intelligence Assistant Relationship Specialty Start Date End Date Henrry Odom MD [address] [place], [place] [address] PCP - General Family Practice 06/02/18 Operations And Intelligence Assistant Relationship Specialty Start Date End Date Henrry Odom MD [address] [place], [place] [address] PCP - General Family Practice 06/02/18 Operations And Intelligence Assistant Relationship Specialty Start Date End Date Henrry Odom MD [address] [place], [place] [address] PCP - General Family Practice 06/02/18 Operations And Intelligence Assistant Relationship Specialty Start Date End Date Henrry Odom MD [address] [place], [place] [address] PCP - General Family Practice 06/02/18 Operations And Intelligence Assistant Relationship Specialty Start Date End Date Henrry Odom MD [address] [place] [address] PCP - General Family Practice 06/02/18 Operations And Intelligence Assistant Relationship Specialty Start Date End Date Henrry Odom MD [address] [place] [address] PCP - General Family Practice 06/02/18 Operations And Intelligence Assistant Relationship Specialty Start Date End Date Henrry Odom MD [address] [place] [address] PCP - General Family Medicine 06/02/18 Operations And Intelligence Assistant Relationship Specialty Start Date End Date Henrry Odom MD [address] [facility] [address] PCP - General Family Medicine 06/02/18 Operations And Intelligence Assistant Relationship Specialty Start Date End Date Henrry Odom MD [address] [place] [address], [place] [address] PCP - General Family Medicine 06/02/18 Operations And Intelligence Assistant Relationship Specialty Start Date End Date Henrry Odom MD [address] [facility] [place] [address] PCP - General Family Medicine 06/02/18 Operations And Intelligence Assistant Relationship Specialty Start Date End Date Henrry Odom MD [address] [facility] [address] PCP - General Family Medicine 06/02/18 Operations And Intelligence Assistant Relationship Specialty Start Date End Date Henrry Odom MD [address] [facility] [place] [address] PCP - General Family Medicine 06/02/18 Operations And Intelligence Assistant Relationship Specialty Start Date End Date Henrry Odom MD [address] [place] [address] PCP - General Family Medicine 06/02/18 Team Status: Active Member Role Status Dates Dr. Duane Odom MD Family Provider Active Dr. Duane Odom MD Primary Care Provider Activ e Team Status: Inactive Member Role Status Dates Dr. Duane Odom MD Primary Care Provider Activ e MARIVEL Jay-C Attending Provider, Referring Pr juan rer Active Team Status: Inactive Member Role Status Dates Dr. Duane Odom MD Primary Care Provider Activ e Dr. Otf Richard MD Attending Provider, Referring P joni Active Team Status: Inactive Member Role Status Dates Dr. Duane Odom MD Primary Care Provider, Refe rring Provider Active Anna ORTA PA Attending Provider Active Team Status: Active Member Role Status Dates Dr. Duane Odom MD Primary Care Provider Activ e Dr. Otf Richard MD Admit Provider, R eferring Provider, Other Provider Active Dr. Setphanie Martin DO Attending Provider, Other Provide r Active Team Status: Active Member Role Status Dates Dr. Duane Odom MD Primary Care Provider Activ e Dr. Otf Richard MD Admit Provider, R eferring Provider, Other Provider Active Dr. Gerald Balbuena MD Other Provider Active Dr. Ct Claire MD Attending Provider, Other Provid er Active Team Status: Inactive Member Role Status Dates Dr. Duane Odom MD Primary Care Provider Activ e Dr. Otf Richard MD Admit Provider, A ttending Provider, Referring Provider Active Dr. Gerald Balbuena MD Other Provider Active Dr. Ct Claire MD Other Provider Active Team Status: Inactive Member Role Status Dates Dr. Duane Odom MD Primary Care Provider Activ e Umm Cintron NP-C Attending Provider Active Team Status: Active Member Role Status Dates Dr. Duane Odom MD Primary Care Provider Activ e Dr. Otf Richard MD Admit Provider, Other Provider Active Dr. Gerald Balbuena MD Other Provider Active Dr. Ct Claire MD Attending Provider, Other Provid er Active Team Status: Inactive Member Role Status Dates Dr. Duane Odom MD Primary Care Provider Activ e Dr. Otf Richard MD Admit Provider, A ttending Provider, Referring Provider Active Dr. Ct Claire MD Other Provider Active Dr. Gerald Balbuena MD Other Provider Active Team Status: Inactive Member Role Status Dates Dr. Duane Odom MD Primary Care Provider Activ e Dr. Toro Baires MD Admit Provider, At tending Provider, Referring Provider Active Dr. Gerald Balbuena MD Other Provider Active Operations And Intelligence Assistant Relationship Specialty Start Date End Date Henrry Odom MD [address] [place], [place] [address] PCP - General Family Medicine 06/02/18 Team Status: Active Member Role Status Dates Dr. Duane Odom MD Primary Care Provider Activ e Dr. Otf Richard MD Admit Provider, Other Provider Active Dr. Vicente Barrow MD Attending Provider, Other Provi simran Active Team Status: Active Member Role Status Dates Dr. Duane Odom MD Primary Care Provider Activ e Dr. Otf Richard MD Admit Provider, Other Provider Active Dr. Be Kulkarni , Attending Provider, Other Provid er Active Team Status: Active Member Role Status Dates Dr. Duane Odom MD Primary Care Provider Activ e Dr. Otf Richard MD Attending Provider, Referring P joni Active Team Status: Inactive Member Role Status Dates Dr. Duane Odom MD Primary Care Provider Activ e Dr. Otf Richard MD Admit Provider, Attending Provi simran Active Dr. Be Kulkarni , Other Provider Active Dr. Stephanie Martin , Other Provider Active Team Status: Inactive Member Role Status Dates Dr. Duane Odom MD Primary Care Provider, Atte nding Provider Active Team Status: Active Member Role Status Dates Dr. Duane Odom MD Primary Care Provider Activ e Dr. Matty Graves MD Attending Provider Active Dr. Toro Baires MD Referring Provider Active Team Status: Inactive Member Role Status Dates Dr. Duane Odom MD Primary Care Provider, Attending Provider, Referring Provider Active Team Status: Active Member Role Status Dates Dr. Duane Odom MD Primary Care Provider, Attending Provider, Referring Provider Active Team Status: Active Member Role Status Dates Dr. Duane Odom MD Primary Care Provider, Atte nding Provider Active Operations And Intelligence Assistant Relationship Specialty Start Date End Date Henrry Odom MD [address] [place] [address] PCP - General Family Medicine 06/02/18 Operations And Intelligence Assistant Relationship Specialty Start Date End Date Henrry Odom MD [address] [place] [address] PCP - General Family Medicine 06/02/18 Operations And Intelligence Assistant Relationship Specialty Start Date End Date Henrry Odom MD [address] [place] [address] PCP - General Family Medicine 06/02/18 Operations And Intelligence Assistant Relationship Specialty Start Date End Date Henrry Odom MD [address] [place] [address] PCP - General Family Medicine 06/02/18 Operations And Intelligence Assistant Relationship Specialty Start Date End Date Henrry Odom MD [address] [place] [address] PCP - General Family Medicine 06/02/18 Operations And Intelligence Assistant Relationship Specialty Start Date End Date Henrry Odom MD [address] [place] [address] PCP - General Family Medicine 06/02/18 Operations And Intelligence Assistant Relationship Specialty Start Date End Date Henrry Odom MD [address] [place] [address] PCP - General Family Medicine 06/02/18 Operations And Intelligence Assistant Relationship Specialty Start Date End Date Henrry Odom MD [address] [place] [address] PCP - General Family Medicine 06/02/18 Team Status: Active Member Role Status Dates Dr. Henrry Odom MD Primary Care Provider Acti ve Team Status: Inactive Member Role Status Dates Dr. Henrry Odom MD Primary Care Provider Acti ve Start: October 11, 2024 End: October 11, 2024 Dr. Henrry Odom MD Attending Provider Active Start: October 11, 2024 End: October 11, 2024 Dr. Henrry Odom MD Referring Provider Active Start: October 11, 2024 End: October 11, 2024 Team Status: Inactive Member Role Status Dates Dr. Henrry Odom MD Primary Care Provider Acti ve Start: February 01, 2025 End: February 01, 2025 Dr. Kirby Pritchett MD Emergency Provider Active Start: February 01, 2025 End: February 01, 2025 Team Status: Active Member Role Status Dates Dr. Henrry Odom MD Primary Care Provider Acti ve Start: February 01, 2025 Dr. Kirby Pritchett MD Attending Provider Active Start: February 01, 2025 Dr. Kirby Pritchett MD Referring Provider Active Start: February 01, 2025 Team Status: Inactive Member Role Status Dates Dr. Henrry Odom MD Primary Care Provider Acti ve Start: February 06, 2025 End: February 06, 2025 Dr. Henrry Odom MD Referring Provider Active Start: February 06, 2025 End: February 06, 2025 Deshawn Mascorro MARKET DEVELOPMENT ANALYST, MARKET DEVELOPMENT ANALYST-C Attending Provider Active S tart: February 06, 2025 End: February 06, 2025 Team Status: Inactive Member Role Status Dates Dr. Henrry Odom MD Primary Care Provider Acti ve Start: February 01, 2025 End: February 01, 2025 Dr. Kirby Pritchett MD Attending Provider Active Start: February 01, 2025 End: February 01, 2025 Dr. Kirby Pritchett MD Emergency Provider Active Start: February 01, 2025 End: February 01, 2025 Team Status: Inactive Member Role Status Dates Dr. Henrry Odom MD Primary Care Provider Acti ve Start: February 06, 2025 End: February 06, 2025 Deshawn Mascorro MARKET DEVELOPMENT ANALYST, MARKET DEVELOPMENT ANALYST-C Attending Provider Active S tart: February 06, 2025 End: February 06, 2025 Deshawn Mascorro MARKET DEVELOPMENT ANALYST, MARKET DEVELOPMENT ANALYST-C Referring Provider Active S tart: February 06, 2025 End: February 06, 2025 Operations And Intelligence Assistant Relationship Specialty Start Date End Date Henrry Odom MD [address] [place] [address] PCP - General Family Medicine 06/02/18 Shelly Su MD [address] [place] [address] Internal Medicine 02/08/25 Operations And Intelligence Assistant Relationship Specialty Start Date End Date Henrry Odom MD [address] [place] [address] PCP - General Family Medicine 06/02/18 Shelly Su MD [address] [place] [address] Internal Medicine 02/08/25 Operations And Intelligence Assistant Relationship Specialty Start Date End Date Henrry Odom MD [address] [place] [address] PCP - General Family Medicine 06/02/18 Shelly Su MD [address] [place] [address] Internal Medicine 02/08/25 Operations And Intelligence Assistant Relationship Specialty Start Date End Date Henrry Odom MD [address] [place] [address] PCP - General Family Medicine 06/02/18 Shelly Su MD [address] [place] [address] Internal Medicine 02/08/25 Operations And Intelligence Assistant Relationship Specialty Start Date End Date Henrry Odom MD [address] [place] [address] PCP - General Family Medicine 06/02/18 Shelly Su MD [address] [place] [address] Internal Medicine 02/08/25 Operations And Intelligence Assistant Relationship Specialty Start Date End Date Henrry Odom MD [address] [place] [address] PCP - General Family Medicine 06/02/18 Shelly Su MD [address] [place] [address] Internal Medicine 02/08/25 Operations And Intelligence Assistant Relationship Specialty Start Date End Date Henrry Odom MD [address] [place] [address] PCP - General Family Medicine 06/02/18 Shelly Su MD [address] [place] [address] Internal Medicine 02/08/25 Operations And Intelligence Assistant Relationship Specialty Start Date End Date Henrry Odom MD [address] [place] [address] PCP - General Family Medicine 06/02/18 Shelly Su MD [address] [place] [address] Internal Medicine 02/08/25 Operations And Intelligence Assistant Relationship Specialty Start Date End Date Henrry Odom MD [address] [place] [address] PCP - General Family Medicine 06/02/18 Shelly Su MD [address] [facility] [address] [place] [address] Internal Medicine 02/08/25 Team Status: Active Member Role/Relationship Status Dates Dr. Henrry Odom MD Primary Care Provider Acti ve Team Status: Inactive Member Role/Relationship Status Dates Dr. Henrry Odom MD Primary Care Provider Acti ve Start: February 01, 2025 End: February 01, 2025 Dr. Kirby Pritchett MD Attending Provider Active Start: February 01, 2025 End: February 01, 2025 Dr. Kirby Pritchett MD Emergency Provider Active Start: February 01, 2025 End: February 01, 2025 Team Status: Inactive Member Role/Relationship Status Dates Dr. Henrry Odom MD Primary Care Provider Acti ve Start: February 06, 2025 End: February 06, 2025 Dr. Henrry Odom MD Referring Provider Active Start: February 06, 2025 End: February 06, 2025 Deshawn Mascorro MARKET DEVELOPMENT ANALYST, MARKET DEVELOPMENT ANALYST-C Attending Provider Active S tart: February 06, 2025 End: February 06, 2025 Team Status: Inactive Member Role/Relationship Status Dates Dr. Henrry Odom MD Primary Care Provider Acti ve Start: February 06, 2025 End: February 06, 2025 Deshawn Mascorro MARKET DEVELOPMENT ANALYST, MARKET DEVELOPMENT ANALYST-C Attending Provider Active S tart: February 06, 2025 End: February 06, 2025 Deshawn Mascorro MARKET DEVELOPMENT ANALYST, MARKET DEVELOPMENT ANALYST-C Referring Provider Active S tart: February 06, 2025 End: February 06, 2025 Team Status: Inactive Member Role/Relationship Status Dates Dr. Henrry Odom MD Primary Care Provider Acti ve Start: March 12, 2025 End: March 12, 2025 Deshawn Mascorro MARKET DEVELOPMENT ANALYST, MARKET DEVELOPMENT ANALYST-C Attending Provider Active S tart: March 12, 2025 End: March 12, 2025 Deshawn Mascorro MARKET DEVELOPMENT ANALYST, MARKET DEVELOPMENT ANALYST-C Referring Provider Active S tart: March 12, 2025 End: March 12, 2025 Team Status: Inactive Member Role/Relationship Status Dates Dr. Henrry Odom MD Primary Care Provider Acti ve Start: March 21, 2025 End: March 21, 2025 Deshawn Mascorro MARKET DEVELOPMENT ANALYST, MARKET DEVELOPMENT ANALYST-C Attending Provider Active S tart: March 21, 2025 End: March 21, 2025 Deshawn Mascorro MARKET DEVELOPMENT ANALYST, MARKET DEVELOPMENT ANALYST-C Referring Provider Active S tart: March 21, 2025 End: March 21, 2025 Team Status: Active Member Role/Relationship Status Dates Dr. Henrry Odom MD Primary Care Provider Acti ve Start: March 21, 2025 Deshawn Mascorro MARKET DEVELOPMENT ANALYST, MARKET DEVELOPMENT ANALYST-C Referring Provider Active S tart: March 21, 2025 Deshawn Mascorro MARKET DEVELOPMENT ANALYST, MARKET DEVELOPMENT ANALYST-C Other Provider Active Start : March 21, 2025 Dr. Matty Graves MD Attending Provider Active S tart: March 21, 2025 Operations And Intelligence Assistant Relationship Specialty Start Date End Date Henrry Odom MD [address] [place], [place] [id number] PCP - General Family Medicine 06/02/18 Shelly Su MD [address] [facility] [address] [place], [place] [id number] Internal Medicine 02/08/25 FOR RECORDS PERTAINING TO PATIENTS WHO ARE OR HAVE BEEN ENROLLED IN A CHEMICAL DEPENDENCY/SUBSTANCEABUSE PROGRAM, SOME INFORMATION MAY BE OMITTED. This clinical summary was aggregated from multiple sources. Caution should be exercised in using it in the provision of clinical care. This summary normalizes information from multiple sources, and as a consequence, information in this document may materially change the coding, format and clinical context of patient data. In addition, data may be omitted in some cases. CLINICAL DECISIONS SHOULD BE BASED ON THE PRIMARY CLINICAL RECORDS. [employer] provides no warranty or guarantee of the accuracy or completeness of information in this document.
[2025-05-27 13:10] LABS: AST(SGOT) 16 U/L (<=31); Alanine Aminotransfer ALT/SGPT 13 U/L (<=34); Albumin, Serum 4.2 g/dL (3.4-4.8); Alkaline Phosphatase 101 U/L (35-104); Anion Gap 13 (5-15); BUN 13 mg/dL (4-19); BUN/Creat Ratio 25.7 RATIO (10-20); Calcium,Total 9.6 mg/dL (7.6-11.0); Carbon Dioxide 25.1 mmol/L (21.0-32.0); Chloride 104 mmol/L (98-108); Globulin 3.1 g/dL (2.2-4.2); Glucose 96 mg/dL (70-99); Potassium 4.4 mmol/L (3.3-5.1)
== END | disposition home or self-care (01) ==
PROVIDERS: PCP Family Medicine; Visit Provider Family Medicine
DX: R19.7 Diarrhea, unspecified (principal); R10.9 Unspecified abdominal pain
CPT/HCPCS: 36415; 80053; 84443; 85025; 85652

== ENCOUNTER → 2025-06-03 | Outpatient (CLI) | payer MEDICARE, MEDICAID, SELFPAY ==
--- OUTSIDE RECORDS SUMMARY | 2025-05-08 12:42 | XMS RPT_ITS ---
Author Name Auto Generated Organization OHIP Care Team Providers Care Guest Services Representative Name Role Phone KELLY LOWE Attending Unavailable SU, SHELLY Referring Unavailable RANFREDY, PRABHAER Shan Primary Care Unavailabl e SU, SHELLY Attending Unavailable SU, SHELLY Referring Unavailable RANFREDY, CHRISTOPHER B Primary Care Unavailabl e SU, SHELLY Referring Unavailable RANFREDY, CHRISTOPHER B Primary Care Unavailabl e SU, SHELLY Attending Unavailable SU, SHELLY Referring Unavailable RANFREDY, CHRISTOPHER B Primary Care Unavailbrandon e KELLY LOWE Attending Unavailable ILENE, CHRISTOPHER B Primary Care Unavailabl e SU, SHELLY Referring Unavailable RANFREDY, CHRISTOPHER B Primary Care Unavailbrandon e KELLY LOWE Referring Unavailable RANFREDY, CHRISTOPHER B Primary Care Unavailabl e SU, SHELLY Referring Unavailable RANFREDY, CHRISTOPHER B Primary Care Unavailabl e RANFREDY, CHRISTOPHER B Referring Unavailabl e RANFREDY, CHRISTOPHER B Primary Care Unavailabl e PROBLEMS DATE TYPE CONDITION / CODE ATTENDING STATUS [facility] 05/08/2025 Active Pain in joint, m ultiple sites / M25.50(ICD-10) SHELLY SU Active [facility] 05/08/2025 Active Vitamin D defici ency / E55.9(ICD-10) BIPIN SUARIKA Active [facility] 02/27/2025 Active Iron deficiency anemia, unspecified iron deficiency anemia type / D50.9(ICD-10) NA Active [facility] 11/15/2024 Active Fibromyalgia / M79.7(ICD-10) KELLY LOWE Active [facility] 11/15/2024 Active Frequent urinati on / R35.0(ICD-10) KELLY LOWE Active [facility] 06/12/2021 Active Rheumatoid arthr itis of multiple sites without organ or system involvement with positive rheumatoid factor (HCC) / M05.79(ICD-10) MARTÍNEZKELLY CARDOZA Active [facility] 08/21/2018 Active High risk medica tion use / Z79.899(ICD-10) KELLY LOWE Active [facility] 10/24/2024 Active Abnormal SPEP / R77.8(ICD-10) [place] KELLY Active [facility] PROCEDURES No Procedure Records Found RESULTS PROGRESS Observed: 05/08/2025 12:43 PM Status: COMPLETED Source: [facility] HNO ID: [id number] Author: SHELLY SU MD Service: ? Author Type: Physician Type: Progress Notes Filed: 05/08/2025 14:01 Note Text: I have communicated my name and active licensure. The patient's identity and physical location were verified at the time of this visit. Either the patient or their legal administrative representative has been informed of the risks and benefits of -- and alternatives to -- treatment through a remote evaluation and consents to proceed with the evaluation remotely. Subjective Marisol Stone is a 65 year old female. Marisol Stone is a 65-year-old female with a history of RA, presenting with diarrhea and abdominal pain. Marisol reports a 1.5 week history of diarrhea and abdominal pain. She describes the diarrhea as severe, with liquid stools occurring during the night. She notes that her bowel movements have always been soft, but now they are entirely liquid. She experiences frequent urination every 15-20 minutes. She also reports significant abdominal bloating, stating she feels as if she is "6 months ," and describes her abdomen as painful. Marisol has been taking leflunomide 20 mg daily for RA, which was increased from 10 mg in February. She previously experienced gastric issues in February, which improved after temporarily discontinuing leflunomide for 1 week. She has also started rituximab infusions. Marisol has been trying to manage her diet to avoid exacerbating symptoms but feels confined to her home due to the unpredictability of her bowel movements. She attempted to see her PCP for evaluation but left due to an anxiety attack. 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 She denies any recent changes in medications other than the increase in leflunomide dosage. Marisol reports worsening pain and stiffness since July of last year, affecting multiple areas including her knees, shoulders, wrists, and ankles. She describes the pain as diffuse, stating, "I hurt everywhere," and notes significant stiffness in her arms, making it difficult to stretch or reach. She experiences pain when removing shirts and hears cracking sounds in her shoulders. She also reports swelling and pain in her left wrist, right index finger, thumb, and ankles, with the right hand being worse. She mentions that her knees feel stiff and sometimes lock up, with increased pain during rainy weather. She was recently restarted on Arava by Kelly but has been experiencing gastrointestinal issues with the medication. She is currently taking arthritis Tylenol, 2 tablets daily and up to 4 at night to aid sleep. She is no longer on prednisone but requests to resume it, stating she felt significantly better when previously prescribed by Dr. Desouza. She denies current treatment for fibromyalgia but was informed by Kelly that her upper body pain might be related to fibromyalgia. Marisol has a history of knee surgery complications, including an infection that required hospitalization for 6 weeks with antibiotics. In April, she underwent knee replacement surgery. She reports that the infection has cleared but now experiences stiffness and occasional locking of the knee. She has tried multiple medications in the past, including methotrexate, Inflectra, Actemra, and Plaquenil, without satisfactory relief. She expresses frustration with the side effects of previous treatments, particularly weekly injections that caused significant bruising and pain, leading her to switch to infusions. She mentions a history of a stent placement and fragile bones with poor bone density. Rheumatologic disease summary: First OV date: 06/02/2018 Diagnosis: RA Serologies: ccp >250, RF 176, FLORA neg Erosions: yes - 2017 Current therapy: pred (taper by PCP) Prior therapy: MTX (d/c due to TKA infection), Inflectra (allergy), Actemra (? Gut perforation), Plaquenil (GI upset), Arava (GI upset), SSZ. Other: marijuana use, marijuana gummies; CARDIAC STENT (2015 - ) Initial rheumatology visit HPI (06/02/2018 Dr. Su): 58 year old female who presents with rheumatoid arthritis. Patient was diagnosed with RA 2 years ago - MTX gave nausea after one month, Humira every other wek and then very week for 5 months - did not help. She has been on prednisone for 2 years and would like to be off of it completely. Sh is unable to walk when she is of prednisone. 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 She also has BMD, x rays, blood work in apr. She was also presribed SSZ which did not help. Had steroid injection. Leflunamide did not hlp RA involved knees and hands. At present she reports swelling of knees. On prednisone She also has fibromyalgia and reports sharp pain with every step. "tail bone" pain H/o NH in 2016. episodes of dizziness and was on Holter monitor. Poor historian. She will be seeing ortho next week for ankle injury. Family history of autoimmune disease: aunt and cousin with RA Smoking status: Tobacco Use: .5 packs/day Quit 04/22/2016. Types: Cigarettes Interval Review of Systems CONSTITUTIONAL: Recent Weight change: No Fever: No EYES: Dryness in nose: No Dryness of mouth: No Oral ulcers: No CARDIOVASCULAR: Pain in chest: No RESPIRATORY: Shortness of breath: No Cough: No GASTROINTESTINAL: Nausea: No Vomiting: No Changes in bowel movements: No Jaundice: No Heartburn: No MUSCULOSKELETAL: Per HPI INTEGUMENTARY: Rash: No HEMATOLOGIC/LYMPHATIC: Anemia: No NEUROLOGICAL SYSTEM: Headaches: No Sensitivity or pain of hands and/or feet: No PSYCHIATRIC: Anxiety: No Poor sleep: No Objective There were no vitals taken for this visit. GENERAL: alert and appropriate, in no distress, well-hydrated, well nourished, and happy, smiling, interactive # Pain in joint, multiple sites (M25.50) # Rheumatoid arthritis involving multiple sites with positive rheumatoid factor (HCC) (M05.79) Patient has been on leflunomide 20 mg daily for RA management; recently completed rituximab infusion. - Hold leflunomide for 7-10 days to assess for improvement in GI symptoms. - Advised patient to allow more time for rituximab to take full effect. - Follow-up in 2-3 months for in-person joint examination; office will contact patient to schedule. # Diarrhea, unspecified type (R19.7) Acute onset of severe diarrhea and abdominal bloating for 1.5 weeks; unclear etiology, but not likely related to leflunomide. - Hold leflunomide for 7-10 days. - Ordered lab work to be completed at a local clinic. - Advised patient to contact PCP to discuss symptoms and lab results. - Instructed patient to go to the hospital if symptoms worsen or do not improve in the next few days. # Vitamin D deficiency (E55.9) Visit was conducted via [facility] Location[facility] Patient Home or Place of Residence [facility] on 05/08/25 COMPLETE BLOOD COUNT AND DIFFERENTIAL COMPREHENSIVE METABOLIC PANEL C-REACTIVE PROTEIN SEDIMENTATION RATE, WESTERGREN VITAMIN D 25 HYDROXY URINALYSIS (WITH MICROSCOPIC) WITH CULTURE IF INDICATED No orders of the defined types were placed in this encounter. Recording using [employer] software for draft documentation of the visit was discussed with the patient/authorized administrative representative; all questions welcomed and answered. Patient/authorized administrative representative agreed to proceed CNPN Observed: 04/11/2025 12:00 AM Status: COMPLETED Source: [facility] Telephone (DudaATH) MARISOL STONE ([id number]) 1960 F Date Time Provider Department 04/11/25 SHELLY SU [facility] During your visit today, we recorded the following information about you: Laura Nelson LPN 04/11/2025 2:11 PM Signed Patient left stating you increased the Arava 10 mg to 20 mg daily. Patient states she needs a new prescription with the correct instructions on it because she will run out of medication in a couple days. Patient asking if you can prescribe 20 mg tablet so she only has to take one daily. Arava was increased by phone, see telephone message on 02/25/2025. Requested Prescriptions Pending Prescriptions Disp Refills leflunomide (ARAVA) 10 mg tablet Sig: Take by mouth once daily. Patient last appointment: 02/18/2025 Next Appointment: 05/08/2025 Patient Phone numbers: [phone] (home) Request is for script(s) to be escript to pharmacy. [facility]/pharmacy #[id number] [place] [address] [address] - [phone] [facility] [phone] Laura Nelson LPN Allergies As of Date: 04/11/2025 Noted Allergy Reaction INFLECTRA (INFLIXIMAB-DYYB) 10/24/2024 2 - Rash MOLD 06/21/2019 14 - Other: See Comments Comments: sneezing/sinus infections POLLEN 02/19/2010 9 - Itching Date Reviewed: 02/27/2025 Reviewed by: Violetta Joseph RN - Fully Assessed Reason for Visit: Medication Problem [65] Order(s):leflunomide (ARAVA) 20 mg tabletTake 1 tablet by mouth once daily.Disp: 90 tabletRfl: 0 Prescriptions as of 04/11/2025 - leflunomide (ARAVA) 20 mg tablet Take 1 tablet by mouth once daily. - tiZANidine (ZANAFLEX) 4 mg tablet TAKE 1 TABLET BY MOUTH EVERY 8 HOURS NEEDED. - predniSONE (DELTASONE) 5 mg tablet Take 3 tablets for 1 week, 2 tabs for 1 week, 1 tab for 1 week, then stop - Cholecalciferol, Vitamin D3, (VITAMIN D-3) 50 mcg (2,000 unit) cap Take 4,000 Units by mouth once daily. - MEDICATION, NON-DATABASE Take 2 capsules by mouth once daily. MORINGA - ergocalciferol 50,000 unit capsule (VITAMIN D2, DRISDOL) TAKE 1 CAPSULE BY MOUTH ONE TIME PER WEEK - OTC NUTRITIONAL SUPPLEMENT Take 1 Cap-Full by mouth once daily. Multi-GI 5 PO one capful daily - mv-mn/folic ac/calcium/vit K1 (WOMEN'S 50 PLUS MULTIVITAMIN ORAL) Take 1 tablet by mouth once daily. - biotin 5,000 mcg subl Dissolve 1 tablet under the tongue once daily. - lisinopril (ZESTRIL) 20 mg tablet Take 20 mg by mouth once daily. - acetaminophen 650 mg CR tablet Take 650 mg by mouth two times a day. - aspirin, enteric coated (ASPIRIN, ENTERIC COATED) 81 mg EC tablet Take 81 mg by mouth once daily. - fexofenadine (JAYLEN) 180 mg tablet Take 180 mg by mouth once daily. - omeprazole (PRILOSEC) 20 mg capsule Take 20 mg by mouth once daily. 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] 05/12/2016 Family history of ischemic heart disease [Z82.4*05/12/2016 Pulmonary hypertension, secondary ([facility]) [YIK493*05/12/2016 Chronic obstructive pulmonary disease ([facility]) [J4*05/12/2016 High risk medication use [Z79.899] 08/21/2018 RA (rheumatoid arthritis) ([facility]) [M06.9] 09/22/2018 11/16/2022 Rheumatoid arthritis of multiple sites without *06/12/2021 Infective arthritis ([facility]) [M00.9] 02/23/2023 Prescriptions ordered this encounter Disp Refills Start End LEFLUNOMIDE 20 MG TABLET 90 t* 0 04/11/2025 Route: PO Sig: Take 1 tablet by mouth once daily. Medications Discontinued During This Encounter Prescriptions - leflunomide (ARAVA) 10 mg tablet (Discontinued) Take 1 tablet by mouth once daily. Encounter Status:Closed by SHELLY SU on 04/11/25 SYEDA Observed: 03/06/2025 12:00 AM Status: COMPLETED Source: [facility] Telephone (GARETT) MARISOL STONE ([id number]) 1960 F Date Time Provider Department 03/06/25 SHELLY SU During your visit today, we recorded the following information about you: Laura Nelson LPN 03/06/2025 1:33 PM Signed ----- Message from Shelly Su MD sent at 03/05/2025 1:54 PM EDT ----- How did her infusion go? Laura Nelson LPN 03/06/2025 1:44 PM Signed Patient states, "It went good. It took a little longer than normal because of the precautions. It went great." Patient states she may have gained weight on the prednisone. Patient states she will start 5 mg of prednisone taper tomorrow and then she will done. Patient wanted to remind you that you increased her Arava from one tablet daily to two tablets daily. See telephone message on 02/25/2025. Laura Nelson LPN Allergies As of Date: 03/06/2025 Noted Allergy Reaction INFLECTRA (INFLIXIMAB-DYYB) 10/24/2024 2 - Rash MOLD 06/21/2019 14 - Other: See Comments Comments: sneezing/sinus infections POLLEN 02/19/2010 9 - Itching Date Reviewed: 02/27/2025 Reviewed by: Violetta Joseph RN - Fully Assessed Reason for Visit: Patient Update [1234] Prescriptions as of 03/06/2025 - predniSONE (DELTASONE) 5 mg tablet Take 3 tablets for 1 week, 2 tabs for 1 week, 1 tab for 1 week, then stop - tiZANidine (ZANAFLEX) 4 mg tablet Take 1 tablet by mouth every 8 hours as needed. Patient takes 4 mg to 6 mg at HS - leflunomide (ARAVA) 10 mg tablet Take 1 tablet by mouth once daily. - Cholecalciferol, Vitamin D3, (VITAMIN D-3) 50 mcg (2,000 unit) cap Take 4,000 Units by mouth once daily. - MEDICATION, NON-DATABASE Take 2 capsules by mouth once daily. MORINGA - ergocalciferol 50,000 unit capsule (VITAMIN D2, DRISDOL) TAKE 1 CAPSULE BY MOUTH ONE TIME PER WEEK - OTC NUTRITIONAL SUPPLEMENT Take 1 Cap-Full by mouth once daily. Multi-GI 5 PO one capful daily - mv-mn/folic ac/calcium/vit K1 (WOMEN'S 50 PLUS MULTIVITAMIN ORAL) Take 1 tablet by mouth once daily. - biotin 5,000 mcg subl Dissolve 1 tablet under the tongue once daily. - lisinopril (ZESTRIL) 20 mg tablet Take 20 mg by mouth once daily. - acetaminophen 650 mg CR tablet Take 650 mg by mouth two times a day. - aspirin, enteric coated (ASPIRIN, ENTERIC COATED) 81 mg EC tablet Take 81 mg by mouth once daily. - fexofenadine (JAYLEN) 180 mg tablet Take 180 mg by mouth once daily. - omeprazole (PRILOSEC) 20 mg capsule Take 20 mg by mouth once daily. 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 Author Type: Registered Nurse Type: Progress Notes Filed: 02/27/2025 13:20 Note Text: see infusion encounter IRON+TIBC PNL SERPL Collected: 02/28/20 11:33 AM Status: F Source: [facility] Order Comment: Specimen Type : BLOOD SPECIMEN Ordering Facility: [facility] Address: [address], [place] [address] TYPE CODE TESTS RESULT OUT OF RANGE REFERENCE UNITS LAB 2498-4(LOINC) Iron SerPl-mCnc 50 41-186 ug/dL LAB 2500-7(LOINC) TIBC SerPl-mCnc 348 232-386 ug/dL LAB 44649-3(LOINC) Iron/TIBC SerPl-sRto 14.4 Low 15.0-57.0 % Performed By: #### 2276-4, 5 0190-8 #### [facility] CLIA [id number] [id number] [facility] [place] [facility] SERPL-MCNC Collected: 02/28/20 11:33 AM Status: F Source: [facility] Comment: Specimen Type : BLOOD SPECIMEN Ordering Facility: [facility] Address: [address], [place] [id number] TYPE CODE TESTS RESULT OUT OF RANGE REFERENCE UNITS LAB 2276-4([facility]) Ferritin SerPl-mCnc 72.9 14.7-205.1 ng/mL Performed By: #### 2276-4, 5 0190-8 #### [facility] CLIA [id number] [address] [place] [address] OF [place] CBC W AUTO DIFF BLD Collected: 02/27/2025 11:33 AM S tatus: F Source: [facility] Comment: Specimen Type : BLOOD SPECIMEN Ordering Facility: [facility] Address: [address], [place] [address] TYPE CODE TESTS RESULT OUT OF RANGE REFERENCE UNITS LAB 6690-2([facility]) WBC # Bld Auto 15.94 High 3.70-11.00 k/uL LAB 789-8([facility]) RBC # Bld Auto 3.81 Low 3.90-5.20 m/ uL LAB 718-7([facility]) Hgb Bld-mCnc 10.0 Low 11.5-15.5 g/dL LAB 4544-3([facility]) Hct VFr Bld Auto 31.1 Low 36.0-46.0 % LAB 787-2([facility]) MCV RBC Auto 81.6 80.0-100.0 fL LAB 785-6([facility]) MCH RBC Qn Auto 26.2 26.0-34.0 p g LAB 786-4([facility]) MCHC RBC Auto-mCnc 32.2 30.5-36.0 g/dL LAB 19182-1([facility]) RDW RBC-Rto 15.9 High 11.5-15.0 % LAB 777-3([facility]) Platelet # Bld Auto 565 High 150-400 k/uL LAB 79324-1([facility]) PMV Bld Auto 8.9 Low 9.0-12.7 fL LAB 770-8([facility]) Neutrophils/leuk NFr Bld Auto 77.8 % LAB 751-8([facility]) Neutrophils # Bld Auto 12.40 High 1.45-7.50 k/uL LAB 736-9([facility]) Lymphocytes/leuk NFr Bld Auto 14.4 % LAB 731-0([facility]) Lymphocytes # Bld Auto 2.29 1.00-4.00 k/uL LAB 5905-5([facility]) Monocytes/leuk NFr Bld Auto 4.9 % LAB 742-7([facility]) Monocytes # Bld Auto 0.78 <0.87 k/uL LAB 713-8([facility]) Eosinophil/leuk NFr Bld Auto 0.6 % LAB 711-2([facility]) Eosinophil # Bld Auto 0.10 <0.46 k/uL LAB 706-2([facility]) Basophils/leuk NFr Bld Auto 0.7 % LAB 704-7([facility]) Basophils # Bld Auto 0.11 High <0.11 k/uL LAB 25105-0([facility]) Imm Granulocytes/michel k NFr Bld Auto 1.6 % LAB 34412-4([facility]) Imm Granulocytes # Bld Auto 0.26 High <0.10 k/uL LAB 29116-8([facility]) nRBC/100 WBC Bld-Rto 0.0 /100 WBC LAB 771-6([facility]) nRBC # Bld Auto <0.01 <0.01 k/u L LAB 23621-6([facility]) Differential method Bld Auto Performed By: #### 07690-0, 98994-7 #### [facility] CLIA [id number] [address] [place] [address] [place] RETICS # Collected: 5 11:33 AM Status: F Source: [facility] Order Comment: Specimen Type : BLOOD SPECIMEN Ordering Facility: [facility] Address: [address], [place] [id number] TYPE CODE TESTS RESULT OUT OF RANGE REFERENCE UNITS LAB 4679-7(LOINC) Retics/100 RBC NFr 3.0 High 0.4-2.0 % LAB 78150-8(LOINC) Retics # 0.112 High 0.018-0.100 M/uL Performed By: #### 42180-5, 76008-8 #### [facility] CLIA [id number] [address] [id number] [place] BLOOD TB SCREEN, INCUBATED Collected: 02/27/2025 11:2 2 AM Status: F Source: [facility] Order Comment: Specimen Type : BLOOD SPECIMEN Ordering Facility: [facility] Address: [address] [place] [address] TYPE CODE TESTS RESULT OUT OF RANGE REFERENCE UNITS LAB TBGNIL TB NIL 0.01 <=8.00 IU/mL LAB TBG1AG TB1 AG MINUS NIL 0.00 <0.35 IU/mL LAB TBG2AG TB2 AG MINUS NIL 0.00 <0.35 IU/mL LAB 66407-8(LOINC ) M TB tuberc IFN-g Bld Ql Negative LAB TBMITN MITOGEN MINUS NIL 2.64 >=0.50 IU/mL LAB TBGINT TB GAMMA INTERPRETATION Infection with M. tuberculosis complex is unlikely. If latent tuberculosis infection is highly suspected, a negative result does not rule out the infection. Specimens from immunocompromised patients and those <5 years of age may show false negative results. In case of a contact investigation, please repeat 8-12 weeks after a known exposure. Performed By: #### INTPGP ## ## [facility] CLIA [id number] [address] [place] [address] OF [place] CNPN Observed: 02/26/2025 12:00 AM Status: COMPLETED Source: [facility] Telephone (HEMAWS) MARISOL STONE ([id number]) 1960 F Date Time Provider Department 02/26/25 SHANNON HURLEY During your visit today, we recorded the following information about you: Magda Russo, RN 02/26/2025 9:18 AM Signed Pt is scheduled upstairs on 02/27 for Rituximab. Please reschedule to main chemo floor for tomorrow's treatment and any future treatments. Rituximab cannot be given on 2nd floor. Thank you! Mariano Watters 02/26/2025 9:28 AM Signed Updated treatments to 1st floor Mariano Watters Allergies As of Date: 02/26/2025 Noted Allergy Reaction INFLECTRA (INFLIXIMAB-DYYB) 10/24/2024 2 - Rash MOLD 06/21/2019 14 - Other: See Comments Comments: sneezing/sinus infections POLLEN 02/19/2010 9 - Itching Date Reviewed: 10/24/2024 Reviewed by: Laura Nelson LPN - Fully Assessed Reason for Visit: Appointment [186] Prescriptions as of 02/26/2025 - predniSONE (DELTASONE) 5 mg tablet Take 3 tablets for 1 week, 2 tabs for 1 week, 1 tab for 1 week, then stop - tiZANidine (ZANAFLEX) 4 mg tablet Take 1 tablet by mouth every 8 hours as needed. Patient takes 4 mg to 6 mg at HS - leflunomide (ARAVA) 10 mg tablet Take 1 tablet by mouth once daily. - Cholecalciferol, Vitamin D3, (VITAMIN D-3) 50 mcg (2,000 unit) cap Take 4,000 Units by mouth once daily. - MEDICATION, NON-DATABASE Take 2 capsules by mouth once daily. MORINGA - ergocalciferol 50,000 unit capsule (VITAMIN D2, DRISDOL) TAKE 1 CAPSULE BY MOUTH ONE TIME PER WEEK - OTC NUTRITIONAL SUPPLEMENT Take 1 Cap-Full by mouth once daily. Multi-GI 5 PO one capful daily - mv-mn/folic ac/calcium/vit K1 (WOMEN'S 50 PLUS MULTIVITAMIN ORAL) Take 1 tablet by mouth once daily. - biotin 5,000 mcg subl Dissolve 1 tablet under the tongue once daily. - lisinopril (ZESTRIL) 20 mg tablet Take 20 mg by mouth once daily. - acetaminophen 650 mg CR tablet Take 650 mg by mouth two times a day. - aspirin, enteric coated (ASPIRIN, ENTERIC COATED) 81 mg EC tablet Take 81 mg by mouth once daily. - fexofenadine (JAYLEN) 180 mg tablet Take 180 mg by mouth once daily. - omeprazole (PRILOSEC) 20 mg capsule Take 20 mg by mouth once daily. 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 Telephone ([facility]ATH) MARISOL STONE ([id number]) 1960 F Date Time Provider Department 02/25/25 SHELLY SU During your visit today, we recorded the following information about you: Go Kendall MA 02/25/2025 1:43 PM Signed Patient called left message want to know,if she do the infusion and take leftunomide? Shelly Su MD 02/25/2025 3:04 PM Signed yes Go Kendall MA 02/25/2025 3:36 PM Signed Patient state was off leftunomide for one week then increase leflunomide to 20 mg. She want to know to stay on 20 mg or go back to 10 mg of lefunomide? Shelly Su MD 02/25/2025 3:54 PM Signed Stay on 20 Go Kendall MA 02/25/2025 4:15 PM Signed Patient is aware and understand. Allergies As of Date: 02/25/2025 Noted Allergy Reaction INFLECTRA (INFLIXIMAB-DYYB) 10/24/2024 2 - Rash MOLD 06/21/2019 14 - Other: See Comments Comments: sneezing/sinus infections POLLEN 02/19/2010 9 - Itching Date Reviewed: 10/24/2024 Reviewed by: Laura Nelson LPN - Fully Assessed Prescriptions as of 02/25/2025 - predniSONE (DELTASONE) 5 mg tablet Take 3 tablets for 1 week, 2 tabs for 1 week, 1 tab for 1 week, then stop - tiZANidine (ZANAFLEX) 4 mg tablet Take 1 tablet by mouth every 8 hours as needed. Patient takes 4 mg to 6 mg at HS - leflunomide (ARAVA) 10 mg tablet Take 1 tablet by mouth once daily. - Cholecalciferol, Vitamin D3, (VITAMIN D-3) 50 mcg (2,000 unit) cap Take 4,000 Units by mouth once daily. - MEDICATION, NON-DATABASE Take 2 capsules by mouth once daily. MORINGA - ergocalciferol 50,000 unit capsule (VITAMIN D2, DRISDOL) TAKE 1 CAPSULE BY MOUTH ONE TIME PER WEEK - OTC NUTRITIONAL SUPPLEMENT Take 1 Cap-Full by mouth once daily. Multi-GI 5 PO one capful daily - mv-mn/folic ac/calcium/vit K1 (WOMEN'S 50 PLUS MULTIVITAMIN ORAL) Take 1 tablet by mouth once daily. - biotin 5,000 mcg subl Dissolve 1 tablet under the tongue once daily. - lisinopril (ZESTRIL) 20 mg tablet Take 20 mg by mouth once daily. - acetaminophen 650 mg CR tablet Take 650 mg by mouth two times a day. - aspirin, enteric coated (ASPIRIN, ENTERIC COATED) 81 mg EC tablet Take 81 mg by mouth once daily. - fexofenadine (JAYLEN) 180 mg tablet Take 180 mg by mouth once daily. - omeprazole (PRILOSEC) 20 mg capsule Take 20 mg by mouth once daily. 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] 05/12/2016 Family history of ischemic heart disease [Z82.4*05/12/2016 Pulmonary hypertension, secondary (HCC) [DBN052*05/12/2016 Chronic obstructive pulmonary disease ([facility]) [J4*05/12/2016 High risk medication use [Z79.899] 08/21/2018 RA (rheumatoid arthritis) ([facility]) [M06.9] 09/22/2018 11/16/2022 Rheumatoid arthritis of multiple sites without *06/12/2021 Infective arthritis ([facility]) [M00.9] 02/23/2023 Encounter Status:Closed by GO KENDALL on 02/25/25 CNPN Observed: 02/25/2025 12:00 AM Status: COMPLETED Source: [facility] MAR[facility] STONE ([id number]) 1960 F Date Time Provider Department 02/25/25 SHELLY SU [facility] During your visit today, we recorded the following information about you: Allergies As of Date: 02/25/2025 Noted Allergy Reaction INFLECTRA (INFLIXIMAB-DYYB) 10/24/2024 2 - Rash MOLD 06/21/2019 14 - Other: See Comments Comments: sneezing/sinus infections POLLEN 02/19/2010 9 - Itching Date Reviewed: 10/24/2024 Reviewed by: Laura Nelson LPN - Fully Assessed Reason for Visit: [employer] - APPROVED [Other] Cmt: [facility] Yao - Completed by the pharmacy team Prescriptions as of 02/25/2025 - predniSONE (DELTASONE) 5 mg tablet Take 3 tablets for 1 week, 2 tabs for 1 week, 1 tab for 1 week, then stop - tiZANidine (ZANAFLEX) 4 mg tablet Take 1 tablet by mouth every 8 hours as needed. Patient takes 4 mg to 6 mg at HS - leflunomide (ARAVA) 10 mg tablet Take 1 tablet by mouth once daily. - Cholecalciferol, Vitamin D3, (VITAMIN D-3) 50 mcg (2,000 unit) cap Take 4,000 Units by mouth once daily. - MEDICATION, NON-DATABASE Take 2 capsules by mouth once daily. MORINGA - ergocalciferol 50,000 unit capsule (VITAMIN D2, DRISDOL) TAKE 1 CAPSULE BY MOUTH ONE TIME PER WEEK - OTC NUTRITIONAL SUPPLEMENT Take 1 Cap-Full by mouth once daily. Multi-GI 5 PO one capful daily - mv-mn/folic ac/calcium/vit K1 (WOMEN'S 50 PLUS MULTIVITAMIN ORAL) Take 1 tablet by mouth once daily. - biotin 5,000 mcg subl Dissolve 1 tablet under the tongue once daily. - lisinopril (ZESTRIL) 20 mg tablet Take 20 mg by mouth once daily. - acetaminophen 650 mg CR tablet Take 650 mg by mouth two times a day. - aspirin, enteric coated (ASPIRIN, ENTERIC COATED) 81 mg EC tablet Take 81 mg by mouth once daily. - fexofenadine (JAYLEN) 180 mg tablet Take 180 mg by mouth once daily. - omeprazole (PRILOSEC) 20 mg capsule Take 20 mg by mouth once daily. 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] 05/12/2016 Family history of ischemic heart disease [Z82.4*05/12/2016 Pulmonary hypertension, secondary (HCC) [OEN318*05/12/2016 Chronic obstructive pulmonary disease (HCC) [J4*05/12/2016 High risk medication use [Z79.899] 08/21/2018 RA (rheumatoid arthritis) ([facility]) [M06.9] 09/22/2018 11/16/2022 Rheumatoid arthritis of multiple sites without *06/12/2021 Infective arthritis ([facility]) [M00.9] 02/23/2023 Encounter Status:Closed by TALIA RODRIGUEZ on 02/25/25 SYEDA Observed: 02/21/2025 12:00 AM Status: COMPLETED Source: [facility] Telephone ([facility]ATH) MARISOL STONE ([id number]) 1960 F Date Time Provider Department 02/21/25 SHELLY SU [facility] During your visit today, we recorded the following information about you: Samira Mistry 02/21/2025 1:21 PM Signed Lab called, TB screen was cancelled due to tubes being overfilled. New order for TB screen needed for redraw. I will notify patient once order is placed Samira Castro 02/22/2025 3:56 PM Signed Called patient to let her know new order was placed and she expressed understanding on the need for a redraw. 02/22/25 Samira Mistry Allergies As of Date: 02/21/2025 Noted Allergy Reaction INFLECTRA (INFLIXIMAB-DYYB) 10/24/2024 2 - Rash MOLD 06/21/2019 14 - Other: See Comments Comments: sneezing/sinus infections POLLEN 02/19/2010 9 - Itching Date Reviewed: 10/24/2024 Reviewed by: Laura Nelson LPN - Fully Assessed Reason for Visit: Results [95] Primary Visit Diagnosis:High risk medication use [Z79.899] Order(s):BLOOD TB SCREEN, INCUBATED [SQINTPGP] Order #: [id number] FUTURE Prescriptions as of 02/22/2025 - predniSONE (DELTASONE) 5 mg tablet Take 3 tablets for 1 week, 2 tabs for 1 week, 1 tab for 1 week, then stop - tiZANidine (ZANAFLEX) 4 mg tablet Take 1 tablet by mouth every 8 hours as needed. Patient takes 4 mg to 6 mg at HS - leflunomide (ARAVA) 10 mg tablet Take 1 tablet by mouth once daily. - Cholecalciferol, Vitamin D3, (VITAMIN D-3) 50 mcg (2,000 unit) cap Take 4,000 Units by mouth once daily. - MEDICATION, NON-DATABASE Take 2 capsules by mouth once daily. MORINGA - ergocalciferol 50,000 unit capsule (VITAMIN D2, DRISDOL) TAKE 1 CAPSULE BY MOUTH ONE TIME PER WEEK - OTC NUTRITIONAL SUPPLEMENT Take 1 Cap-Full by mouth once daily. Multi-GI 5 PO one capful daily - mv-mn/folic ac/calcium/vit K1 (WOMEN'S 50 PLUS MULTIVITAMIN ORAL) Take 1 tablet by mouth once daily. - biotin 5,000 mcg subl Dissolve 1 tablet under the tongue once daily. - lisinopril (ZESTRIL) 20 mg tablet Take 20 mg by mouth once daily. - acetaminophen 650 mg CR tablet Take 650 mg by mouth two times a day. - aspirin, enteric coated (ASPIRIN, ENTERIC COATED) 81 mg EC tablet Take 81 mg by mouth once daily. - fexofenadine (JAYLEN) 180 mg tablet Take 180 mg by mouth once daily. - omeprazole (PRILOSEC) 20 mg capsule Take 20 mg by mouth once daily. 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 HNO ID: [id number] Author: ?, ?, ? Service: ? Author Type: ? Type: Progress Notes Filed: 02/20/2025 13:29 Note Text: She is scheduled in [place] on 02/27 and 03/07. I called and scheduled it with them on Tuesday. Samira Mistry CBC W AUTO DIFF BLD Collected: 02/18/2025 12:47 PM S tatus: F Source: [facility] Order Comment: Specimen Type : BLOOD SPECIMEN Ordering Facility: [facility] Address: [address] [place] [address] TYPE CODE TESTS RESULT OUT OF RANGE REFERENCE UNITS LAB 6690-2(LOINC) WBC # Bld Auto 8.61 3.70-11.00 k/uL LAB 789-8(LOINC) RBC # Bld Auto 3.96 3.90-5.20 m/ uL LAB 718-7(LOINC) Hgb Bld-mCnc 10.2 Low 11.5-15.5 g/dL LAB 4544-3(LOINC) Hct VFr Bld Auto 32.5 Low 36.0-46.0 % LAB 787-2(LOINC) MCV RBC Auto 82.1 80.0-100.0 fL LAB 785-6(LOINC) MCH RBC Qn Auto 25.8 Low 26.0-34.0 p g LAB 786-4(LOINC) MCHC RBC Auto-mCnc 31.4 30.5-36.0 g/dL LAB 01023-4(LOINC) RDW RBC-Rto 14.8 11.5-15.0 % LAB 777-3(LOINC) Platelet # Bld Auto 562 High 150-400 k/uL Result Comment: No clot dete cted. LAB 43301-3(LOINC) PMV Bld Auto 9.8 9.0-12.7 fL LAB 770-8(INC) Neutrophils/leuk NFr Bld Auto 66.0 % LAB 751-8(INC) Neutrophils # Bld Auto 5.69 1.45-7.50 k/uL LAB 736-9(INC) Lymphocytes/leuk NFr Bld Auto 21.3 % LAB 731-0(INC) Lymphocytes # Bld Auto 1.83 1.00-4.00 k/uL LAB 5905-5([facility]) Monocytes/leuk NFr Bld Auto 8.4 % LAB 742-7([facility]) Monocytes # Bld Auto 0.72 <0.87 k/uL LAB 713-8([facility]) Eosinophil/leuk NFr Bld Auto 2.6 % LAB 711-2([facility]) Eosinophil # Bld Auto 0.22 <0.46 k/uL LAB 706-2([facility]) Basophils/leuk NFr Bld Auto 1.0 % LAB 704-7([facility]) Basophils # Bld Auto 0.09 <0.11 k/uL LAB 90569-5([facility]) Imm Granulocytes/michel k NFr Bld Auto 0.7 % LAB 38918-5([facility]) Imm Granulocytes # Bld Auto 0.06 <0.10 k/uL LAB 31230-6([facility]) nRBC/100 WBC Bld-Rto 0.0 /100 WBC LAB 771-6([facility]) nRBC # Bld Auto <0.01 <0.01 k/u L LAB 49120-3([facility]) Differential method Bld Auto Performed By: #### 15418-9 # ### [facility] CLIA [id number] [address] [place] [address] [place] HBV CORE AB SER QL Collected: 5 12:47 PM Status: F Source: [facility] Order Comment: Specimen Type : BLOOD SPECIMEN Ordering Facility: [facility] Address: [address] [place] [address] TYPE CODE TESTS RESULT OUT OF RANGE REFERENCE UNITS LAB 01557-3([facility]) HBV core Ab Ser Ql Negative Negative Result Comment: No evidence of current or past infection with Hepatitis B virus. Should recent infection be suspected, repeat testing may be considered 3-4 weeks after this draw. Performed By: #### 37665-2 # ### [facility] CLIA [id number] [address] [place], [place] [address] HBV SURFACE AB SER QL Collected: 2024 12:47 PM Status: F Source: [facility] Order Comment: Specimen Type : BLOOD SPECIMEN Ordering Facility: [facility] Address: [address] [place] [address] TYPE CODE TESTS RESULT OUT OF RANGE REFERENCE UNITS LAB 27406-6(LOINC) HBV surface Ab Ser Ql Negative Result Comment: No serologic al evidence of immunity to Hepatitis B Virus. LAB 97479-8(LOINC) HBV surface Ab Ser-aCnc 3.50 mIU/mL Result Comment: <8.5 mIU/mL: No serological evidence of immunity to Hepatitis B Virus. >/= 8.5 to <11.5 mIU/mL: No serological evidence of immunity to Hepatitis B Virus. >/= 11.5 mIU/mL: Consistent with serological evidence of immunity to Hepatitis B Virus. Performed By: #### 74999-4, 5195-3 #### [facility] CLIA [id number] [address] HBV SURFACE AG SER QL Collected: 2024 12:47 PM Status: F Source: [facility] Order Comment: Specimen Type : BLOOD SPECIMEN Ordering Facility: [facility] Address: [address] [place] [address] TYPE CODE TESTS RESULT OUT OF RANGE REFERENCE UNITS LAB 5195-3(LOINC) HBV surface Ag Ser Ql Nonreactive Nonreactive Performed By: #### 40762-1, 5195-3 #### [facility] CLIA [id number] [address] HCV AB SER QL Collected: 12:47 PM Status: F Source: [facility] Order Comment: Specimen Type : BLOOD SPECIMEN Ordering Facility: [facility] Address: [address] [place] [address] TYPE CODE TESTS RESULT OUT OF RANGE REFERENCE UNITS LAB 98491-7(INC) HCV Ab Ser Ql Nonreactive Nonreactive Result Comment: The result s uggests no evidence of active infection with Hepatitis C virus. Should recent infection be suspected, repeat testing may be considered 4- 6 weeks after this draw. Performed By: #### 74238-7 # ### [facility] CLIA [id number] [address] STATES OF [facility] COMP METAB 2000 PNL SERPL Collected: 12:47 PM Status: F Source: [facility] Order Comment: Specimen Type : BLOOD SPECIMEN Ordering Facility: [facility] Address: [address] [place] [address] TYPE CODE TESTS RESULT OUT OF RANGE REFERENCE UNITS LAB 2885-2(LOINC) Prot SerPl-mCnc 6.9 6.3-8.0 g/dL LAB 1751-7(LOINC) Albumin SerPl-mCnc 3.6 Low 3.9-4.9 g/dL LAB 71282-2(LOINC) Calcium SerPl-mCnc 9.2 8.5-10.2 mg/dL LAB 1975-2(LOINC) Bilirub SerPl-mCnc 0.2 0.2-1.3 mg/dL LAB 6768-6(LOINC) ALP SerPl-cCnc 107 34-123 U/L LAB 66507-8(LOINC) AST SerPl w P-5'-P-cCnc 16 13-35 U/L LAB 1743-4(LOINC) ALT SerPl w P-5'-P-cCnc 12 7-38 U/L LAB 2345-7(LOINC) Glucose SerPl-mCnc 92 74-99 mg/dL Result Comment: The [place] [employer] (ADA) provides guidance for cutoff values for fasting glucose and random glucose. The ADA defines fasting as no caloric intake for at least 8 hours. Fasting plasma glucose results between 100 to 125 mg/dL indicate increased risk for diabetes (prediabetes). Fasting plasma glucose results greater than or equal to 126 mg/dL meet the criteria for diagnosis of diabetes. In the absence of unequivocal hyperglycemia, results should be confirmed by repeat testing. In a patient with classic symptoms of hyperglycemia or hyperglycemic crisis, random plasma glucose results greater than or equal to 200 mg/dL meet the criteria for diagnosis of diabetes. Reference: Standards of Medical Care in Diabetes 2016, [place] [employer]. Diabetes Care. 2016.39(Suppl 1). LAB 3094-0(LOINC) BUN SerPl-mCnc 8 7-21 mg/ dL LAB 2160-0(LOINC) Creat SerPl-mCnc 0.47 Low 0.58-0.96 mg/dL LAB 2951-2(LOINC) Sodium SerPl-sCnc 138 136-144 mmol/L LAB 2823-3(LOINC) Potassium SerPl-sCnc 4.0 3.7-5.1 mmol/L LAB 2075-0(LOINC) Chloride SerPl-sCnc 102 98-107 mmol/L LAB 2028-9(LOINC) CO2 SerPl-sCnc 26 22-30 mmo l/L LAB 1863-0(LOINC) Anion Gap4 SerPl-sCnc 10 8-15 mmol/L LAB 68686-5(LOINC) Creatinine + eGFR Pnl SerPlBld 105 >=60 mL/min/1. 73m??? Result Comment: Estimated Gl omerular Filtration Rate (eGFR) is calculated using the 2020 CKD-EPI creatinine equation. This equation utilizes serum creatinine, sex, and age as parameters. The creatinine assay has traceable calibration to isotope dilution-mass spectrometry. Refer to KDIGO guidelines for clinical interpretation. In patients with unstable renal function, e.g. those with acute kidney injury, the eGFR may not accurately reflect actual GFR. Performed By: #### 1988-01, 2 4323-04 #### [facility] CLIA [id number] [address] [place] CRP SERPL-MCNC Collected: 5 12:47 PM Status: F Source: [facility] Order Comment: Specimen Type : BLOOD SPECIMEN Ordering Facility: [facility] Address: [address] [place] [address] TYPE CODE TESTS RESULT OUT OF RANGE REFERENCE UNITS LAB 1988-01(LOINC) CRP SerPl-mCnc 5.3 High <0.9 mg/dL Performed By: #### 1988-01, 2 4323-04 #### [facility] CLIA [id number] [address] [place] [id number] [facility] [place] 25(OH)D3 SERPL-MCNC Collected: 02/19/20 12:47 PM Status: F Source: [facility] Order Comment: Specimen Type : BLOOD SPECIMEN Ordering Facility: [facility] Address: [address] [place] [id number] TYPE CODE TESTS RESULT OUT OF RANGE REFERENCE UNITS LAB 1988-11(LOINC) 25(OH)D3 SerPl-mCnc 64.7 >=30.0 ng/mL Result Comment: Classificati on of 25 [place] Vitamin D status: Deficiency: <= 20.0 ng/ml. Insufficiency: 21.0-29.0 ng/ml. Sufficiency: >= 30.0 ng/ml. Performed By: #### 1988-11 ## ## [facility] CLIA [id number] [address] [place] [id number] [facility] PROGRESS Observed: 02/18/2025 12:07 PM Status: COMPLETED Source: [facility] HNO ID: [id number] Author: SHELLY SU MD Service: ? Author Type: Physician Type: Progress Notes Filed: 02/18/2025 12:54 Note Text: RHEUMATOLOGY PROGRESS NOTE Patient is here for a follow up visit for Marisol Stone is a 65-year-old female with a history of RA, presenting with diffuse pain and stiffness. HPI: Marisol reports worsening pain and stiffness since July of last year, affecting multiple areas including her knees, shoulders, wrists, and ankles. She describes the pain as diffuse, stating, "I hurt everywhere," and notes significant stiffness in her arms, making it difficult to stretch or reach. She experiences pain when removing shirts and hears cracking sounds in her shoulders. She also reports swelling and pain in her left wrist, right index finger, thumb, and ankles, with the right hand being worse. She mentions that her knees feel stiff and sometimes lock up, with increased pain during rainy weather. She was recently restarted on Arava by Kelly but has been experiencing gastrointestinal issues with the medication. She is currently taking arthritis Tylenol, 2 tablets daily and up to 4 at night to aid sleep. She is no longer on prednisone but requests to resume it, stating she felt significantly better when previously prescribed by Dr. Desouza. She denies current treatment for fibromyalgia but was informed by Kelly that her upper body pain might be related to fibromyalgia. Marisol has a history of knee surgery complications, including an infection that required hospitalization for 6 weeks with antibiotics. In April, she underwent knee replacement surgery. She reports that the infection has cleared but now experiences stiffness and occasional locking of the knee. She has tried multiple medications in the past, including methotrexate, Inflectra, Actemra, and Plaquenil, without satisfactory relief. She expresses frustration with the side effects of previous treatments, particularly weekly injections that caused significant bruising and pain, leading her to switch to infusions. She mentions a history of a stent placement and fragile bones with poor bone density. Rheumatologic disease summary: First OV date: 06/02/2018 Diagnosis: RA Serologies: ccp >250, RF 176, FLORA neg Erosions: yes - 2017 Current therapy: pred (taper by PCP) Prior therapy: MTX (d/c due to TKA infection), Inflectra (allergy), Actemra (? Gut perforation), Plaquenil (GI upset), Arava (GI upset), SSZ. Other: marijuana use, marijuana gummies; CARDIAC STENT (2015 - ) Initial rheumatology visit [facility] (06/02/2018 Dr. Su): 58 year old female who presents with rheumatoid arthritis. Patient was diagnosed with RA 2 years ago - MTX gave nausea after one month, Humira every other wek and then very week for 5 months - did not help. She has been on prednisone for 2 years and would like to be off of it completely. Sh is unable to walk when she is of prednisone. 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 She also has BMD, x rays, blood work in apr. She was also presribed SSZ which did not help. Had steroid injection. Leflunamide did not hlp RA involved knees and hands. At present she reports swelling of knees. On prednisone She also has fibromyalgia and reports sharp pain with every step. "tail bone" pain H/o NH in 2016. episodes of dizziness and was on Holter monitor. Poor historian. She will be seeing ortho next week for ankle injury. Family history of autoimmune disease: aunt and cousin with RA Smoking status: Tobacco Use: .5 packs/day Quit 04/22/2016. Types: Cigarettes Interval Review of Systems CONSTITUTIONAL: Recent Weight change: No Fever: No EYES: Dryness in nose: No Dryness of mouth: No Oral ulcers: No CARDIOVASCULAR: Pain in chest: No RESPIRATORY: Shortness of breath: No Cough: No GASTROINTESTINAL: Nausea: No Vomiting: No Changes in bowel movements: No Jaundice: No Heartburn: No MUSCULOSKELETAL: Per HPI INTEGUMENTARY: Rash: No HEMATOLOGIC/LYMPHATIC: Anemia: No NEUROLOGICAL SYSTEM: Headaches: No Sensitivity or pain of hands and/or feet: No PSYCHIATRIC: Anxiety: No Poor sleep: No PAST MEDICAL HISTORY Diagnosis Date Coronary artery disease Fibromyalgia Osteoarthritis PMH - PAST MEDICAL HISTORY OF depression Rheumatoid arthritis (HCC) PAST SURGICAL HISTORY Procedure Laterality Date BIOPSY BREAST 2002 fibroadenoma CC PCI CORONARY INTERVENT LAPS ABD PRTMANDOMENTUM DX W/WO SPEC BR/WA SPX Laparoscopy lysis of adhesions LIG/TRNSXJ FLP TUBE ABDL/VAG APPR UNI/BI Tubal ligation PAST SURGICAL HISTORY OF 08/2011 colonoscopy- bleeding ulcer PAST SURGICAL HISTORY OF Right Total right knee replacement PAST SURGICAL HISTORY OF Left Total left knee replacement UPPER GI History Review: I have reviewed and modified as needed, the following during this visit: Allergies, Past Medical History, Past Surgical History, Past Family History, Past Social History. BP 135/80 Pulse 82 Resp 13 SpO2 98% Physical Exam Constitutional: - Appearance: Normal appearance. No acute distress. HENT: - Head: Atraumatic. - Eyes: - Extraocular Movements: Extraocular movements intact. - Conjunctiva/sclera: Conjunctivae normal. - Pupils: Pupils are equal, round, and reactive to light. Cardiovascular: - Rate and Rhythm: Normal rate and regular rhythm. - Pulses: Normal pulses. - Heart sounds: Normal heart sounds. Pulmonary: - Breath sounds: Normal breath sounds. Musculoskeletal: - Cervical back: Normal range of motion. - No peripheral synovitis - Shoulders FROM no effusion - Elbows FROM no effusion - Wrists FROM, left wrist swelling noted - Hands good building mechanic, MCP, PIP, DIP with right index finger and right thumb swelling - Hips FROM - Knees FROM no effusion - Ankles FROM, swelling noted - Feet no MTP squeeze tenderness Skin: - General: Skin is warm and dry. Neurological: - General: No focal deficit present. Psychiatric: - Mood and Affect: Mood normal. - Behavior: Behavior normal. Lab Results: Glucose 127 11/27/2024 ALT 8 11/27/2024 WBC 13.31 11/27/2024 HGB 12.8 11/27/2024 Platelet Count 552 11/27/2024 Sed Rate, Westergren 54 11/27/2024 CRP 5.4 11/27/2024 Serology: Radiology: Assessment and Plan # Pain in joint, multiple sites (M25.50) # Rheumatoid arthritis with rheumatoid factor of multiple sites without organ or systems involvement (HCC) (M05.79) Patient experiencing widespread joint pain and stiffness, particularly in knees, shoulders, wrists, and fingers. Current treatment with leflunomide 10 mg is insufficient, and patient reports gastrointestinal side effects. Physical exam reveals swelling in left wrist, right index finger, thumb, and ankles, indicating active rheumatoid arthritis. - Discontinue leflunomide for one week to assess if GI symptoms improve. - Ordered blood tests to monitor medication effects; patient to complete labs today or in [place]. - Initiate prednisone for temporary relief. - Begin process for rituximab IV infusion every 6 months; requires insurance approval. - Prescribe muscle relaxers for symptomatic relief. - Follow-up appointment to be scheduled. # Vitamin D deficiency (E55.9) # Fibromyalgia (M79.7) Patient reports upper body pain and stiffness, consistent with fibromyalgia. No current treatment for fibromyalgia. - Patient to follow up with primary care physician on the for management. - Provided information on medications such as Cymbalta, Lyrica, and Elavil. # Infection and inflammatory reaction due to internal left knee prosthesis, initial encounter (T84.54XA) Previous infection in left knee prosthesis treated with temporary antibiotic block and 6 weeks of antibiotics. Knee was replaced in April; infection is now resolved. Office Visit on 02/18/25 COMPLETE BLOOD COUNT AND DIFFERENTIAL COMPREHENSIVE METABOLIC PANEL C-REACTIVE PROTEIN SEDIMENTATION RATE, WESTERGREN VITAMIN D 25 HYDROXY BLOOD TB SCREEN, INCUBATED HEPATITIS B SURFACE ANTIGEN HEPATITIS B SURFACE ANTIBODY HEPATITIS C ANTIBODY IA WITH CONFIRMATION HEPATITIS B CORE ANTIBODY TOTAL Medication orders placed this encounter leflunomide (ARAVA) 10 mg tablet Sig: Take 1 tablet by mouth once daily. Dispense: 90 tablet Refill: 0 predniSONE (DELTASONE) 5 mg tablet Sig: Take 3 tablets for 1 week, 2 tabs for 1 week, 1 tab for 1 week, then stop Dispense: 42 tablet Refill: 0 tiZANidine (ZANAFLEX) 4 mg tablet Sig: Take 1 tablet by mouth every 8 hours as needed. Patient takes 4 mg to 6 mg at HS Dispense: 90 tablet Refill: 1 Shelly Su MD I spent a total of 20 minutes on the date of the service which included preparing to see the patient, [id number] patient care, completing clinical documentation, obtaining and/or reviewing separately obtained history, performing a medically appropriate examination, counseling and educating the patient/family/caregiver, ordering medications, tests, or procedures, independently interpreting results (not separately reported), and communicating results to the patient/family/caregiver. Recording using [employer] software for draft documentation of the visit was discussed with the patient/authorized administrative representative; all questions welcomed and answered. Patient/authorized administrative representative agreed to proceed CNOV Observed: 02/18/2025 11:40 AM Status: COMPLETED Source: [facility] Office Visit (RHBATH) MARISOL STONE ([id number]) 1960 F Date Time Provider Department 02/18/25 11:40 AM SHELLY SU During your visit today, we recorded the following information about you: Pulse Respiration Blood pressure 82/minute 13/minute 135/80 Shelly Su MD 02/18/2025 12:54 PM Signed RHEUMATOLOGY PROGRESS NOTE Patient is here for a follow up visit for Marisol Mayes Chase is a 65-year-old female with a history of RA, presenting with diffuse pain and stiffness. HPI: Marisol reports worsening pain and stiffness since July of last year, affecting multiple areas including her knees, shoulders, wrists, and ankles. She describes the pain as diffuse, stating, "I hurt everywhere," and notes significant stiffness in her arms, making it difficult to stretch or reach. She experiences pain when removing shirts and hears cracking sounds in her shoulders. She also reports swelling and pain in her left wrist, right index finger, thumb, and ankles, with the right hand being worse. She mentions that her knees feel stiff and sometimes lock up, with increased pain during rainy weather. She was recently restarted on Arava by Kelly but has been experiencing gastrointestinal issues with the medication. She is currently taking arthritis Tylenol, 2 tablets daily and up to 4 at night to aid sleep. She is no longer on prednisone but requests to resume it, stating she felt significantly better when previously prescribed by Dr. Desouza. She denies current treatment for fibromyalgia but was informed by Kelly that her upper body pain might be related to fibromyalgia. Marisol has a history of knee surgery complications, including an infection that required hospitalization for 6 weeks with antibiotics. In April, she underwent knee replacement surgery. She reports that the infection has cleared but now experiences stiffness and occasional locking of the knee. She has tried multiple medications in the past, including methotrexate, Inflectra, Actemra, and Plaquenil, without satisfactory relief. She expresses frustration with the side effects of previous treatments, particularly weekly injections that caused significant bruising and pain, leading her to switch to infusions. She mentions a history of a stent placement and fragile bones with poor bone density. Rheumatologic disease summary: First OV date: 06/02/2018 Diagnosis: RA Serologies: ccp >250, RF 176, FLORA neg Erosions: yes - 2016 Current therapy: pred (taper by PCP) Prior therapy: MTX (d/c due to TKA infection), Inflectra (allergy), Actemra (? Gut perforation), Plaquenil (GI upset), Arava (GI upset), SSZ. Other: marijuana use, marijuana gummies; CARDIAC STENT (2015 - ) Initial rheumatology visit HPI (06/02/2018 Dr. Su): 58 year old female who presents with rheumatoid arthritis. Patient was diagnosed with RA 2 years ago - MTX gave nausea after one month, Humira every other wek and then very week for 5 months - did not help. She has been on prednisone for 2 years and would like to be off of it completely. Sh is unable to walk when she is of prednisone. 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 She also has BMD, x rays, blood work in apr. She was also presribed SSZ which did not help. Had steroid injection. Leflunamide did not hlp RA involved knees and hands. At present she reports swelling of knees. On prednisone She also has fibromyalgia and reports sharp pain with every step. "tail bone" pain H/o NH in 2016. episodes of dizziness and was on Holter monitor. Poor historian. She will be seeing ortho next week for ankle injury. Family history of autoimmune disease: aunt and cousin with RA Smoking status: Tobacco Use: .5 packs/day Quit 04/22/2016. Types: Cigarettes Interval Review of Systems CONSTITUTIONAL: Recent Weight change: No Fever: No EYES: Dryness in nose: No Dryness of mouth: No Oral ulcers: No CARDIOVASCULAR: Pain in chest: No RESPIRATORY: Shortness of breath: No Cough: No GASTROINTESTINAL: Nausea: No Vomiting: No Changes in bowel movements: No Jaundice: No Heartburn: No MUSCULOSKELETAL: Per HPI INTEGUMENTARY: Rash: No HEMATOLOGIC/LYMPHATIC: Anemia: No NEUROLOGICAL SYSTEM: Headaches: No Sensitivity or pain of hands and/or feet: No PSYCHIATRIC: Anxiety: No Poor sleep: No PAST MEDICAL HISTORY Diagnosis Date Coronary artery disease Fibromyalgia Osteoarthritis PMH - PAST MEDICAL HISTORY OF depression Rheumatoid arthritis (HCC) PAST SURGICAL HISTORY Procedure Laterality Date BIOPSY BREAST 2002 fibroadenoma CC PCI CORONARY INTERVENT LAPS ABD PRTMANDOMENTUM DX W/WO SPEC BR/WA SPX Laparoscopy lysis of adhesions LIG/TRNSXJ FLP TUBE ABDL/VAG APPR UNI/BI Tubal ligation PAST SURGICAL HISTORY OF 08/2011 colonoscopy- bleeding ulcer PAST SURGICAL HISTORY OF Right Total right knee replacement PAST SURGICAL HISTORY OF Left Total left knee replacement UPPER GI History Review: I have reviewed and modified as needed, the following during this visit: Allergies, Past Medical History, Past Surgical History, Past Family History, Past Social History. BP 135/80 Pulse 82 Resp 13 SpO2 98% Physical Exam Constitutional: - Appearance: Normal appearance. No acute distress. HENT: - Head: Atraumatic. - Eyes: - Extraocular Movements: Extraocular movements intact. - Conjunctiva/sclera: Conjunctivae normal. - Pupils: Pupils are equal, round, and reactive to light. Cardiovascular: - Rate and Rhythm: Normal rate and regular rhythm. - Pulses: Normal pulses. - Heart sounds: Normal heart sounds. Pulmonary: - Breath sounds: Normal breath sounds. Musculoskeletal: - Cervical back: Normal range of motion. - No peripheral synovitis - Shoulders FROM no effusion - Elbows FROM no effusion - Wrists FROM, left wrist swelling noted - Hands good building mechanic, MCP, PIP, DIP with right index finger and right thumb swelling - Hips FROM - Knees FROM no effusion - Ankles FROM, swelling noted - Feet no MTP squeeze tenderness Skin: - General: Skin is warm and dry. Neurological: - General: No focal deficit present. Psychiatric: - Mood and Affect: Mood normal. - Behavior: Behavior normal. Lab Results: Glucose 127 11/27/2024 ALT 8 11/27/2024 WBC 13.31 11/27/2024 HGB 12.8 11/27/2024 Platelet Count 552 11/27/2024 Sed Rate, Westergren 54 11/27/2024 CRP 5.4 11/27/2024 Serology: Radiology: Assessment and Plan # Pain in joint, multiple sites (M25.50) # Rheumatoid arthritis with rheumatoid factor of multiple sites without organ or systems involvement (HCC) (M05.79) Patient experiencing widespread joint pain and stiffness, particularly in knees, shoulders, wrists, and fingers. Current treatment with leflunomide 10 mg is insufficient, and patient reports gastrointestinal side effects. Physical exam reveals swelling in left wrist, right index finger, thumb, and ankles, indicating active rheumatoid arthritis. - Discontinue leflunomide for one week to assess if GI symptoms improve. - Ordered blood tests to monitor medication effects; patient to complete labs today or in [place]. - Initiate prednisone for temporary relief. - Begin process for rituximab IV infusion every 6 months; requires insurance approval. - Prescribe muscle relaxers for symptomatic relief. - Follow-up appointment to be scheduled. # Vitamin D deficiency (E55.9) # Fibromyalgia (M79.7) Patient reports upper body pain and stiffness, consistent with fibromyalgia. No current treatment for fibromyalgia. - Patient to follow up with primary care physician on the for management. - Provided information on medications such as Cymbalta, Lyrica, and Elavil. # Infection and inflammatory reaction due to internal left knee prosthesis, initial encounter (T84.54XA) Previous infection in left knee prosthesis treated with temporary antibiotic block and 6 weeks of antibiotics. Knee was replaced in April; infection is now resolved. Office Visit on 02/18/25 COMPLETE BLOOD COUNT AND DIFFERENTIAL COMPREHENSIVE METABOLIC PANEL C-REACTIVE PROTEIN SEDIMENTATION RATE, WESTERGREN VITAMIN D 25 HYDROXY BLOOD TB SCREEN, INCUBATED HEPATITIS B SURFACE ANTIGEN HEPATITIS B SURFACE ANTIBODY HEPATITIS C ANTIBODY IA WITH CONFIRMATION HEPATITIS B CORE ANTIBODY TOTAL Medication orders placed this encounter leflunomide (ARAVA) 10 mg tablet Sig: Take 1 tablet by mouth once daily. Dispense: 90 tablet Refill: 0 predniSONE (DELTASONE) 5 mg tablet Sig: Take 3 tablets for 1 week, 2 tabs for 1 week, 1 tab for 1 week, then stop Dispense: 42 tablet Refill: 0 tiZANidine (ZANAFLEX) 4 mg tablet Sig: Take 1 tablet by mouth every 8 hours as needed. Patient takes 4 mg to 6 mg at HS Dispense: 90 tablet Refill: 1 Shelly Su MD I spent a total of 20 minutes on the date of the service which included preparing to see the patient, [id number] patient care, completing clinical documentation, obtaining and/or reviewing separately obtained history, performing a medically appropriate examination, counseling and educating the patient/family/caregiver, ordering medications, tests, or procedures, independently interpreting results (not separately reported), and communicating results to the patient/family/caregiver. Recording using [employer] software for draft documentation of the visit was discussed with the patient/authorized administrative representative; all questions welcomed and answered. Patient/authorized administrative representative agreed to proceed Shelly Su MD 02/18/2025 12:27 PM Signed We discussed your rheumatoid arthritis (RA): - Your RA is currently active, with swelling noted in your left wrist, right index finger, thumb, and ankles. - You are currently taking Areva (leflunomide) 10 mg, but it is not adequately controlling your symptoms and is causing gastrointestinal (GI) side effects. - Stop taking Areva for 1 week to determine if it is causing your GI symptoms. If your symptoms improve, we will consider alternative medications. If your symptoms persist, resume Areva and we may increase the dose to 20 mg, as this is the optimal dose for RA. - We discussed starting rituximab, a strong IV medication for RA. - Rituximab is given as two infusions (day 1 and day 14) and then repeated every 6 months. - Side effects include an increased risk of infection, allergic reactions, and headache. You will be monitored during the infusion. - We will begin the insurance approval process for rituximab. Once approved, you will receive a call to schedule your infusion. - I will prescribe a short course of prednisone to help manage your symptoms temporarily. Please note that prednisone is not a long-term solution due to its potential side effects, including effects on bone density. - You will have blood tests today to monitor your condition and medication effects. We discussed your fibromyalgia: - Fibromyalgia is not an autoimmune condition and requires a different treatment approach. - Your primary care doctor will manage your fibromyalgia. You have an appointment with them on the . - In the meantime, I will prescribe a muscle relaxer to take as needed for pain and stiffness. - Medications such as Cymbalta, Lyrica, or Elavil may be helpful for fibromyalgia. These can be discussed with your primary care doctor. We discussed your pain management: - You are currently taking Tylenol Arthritis for pain. - Prednisone and muscle relaxers will be added temporarily to help manage your symptoms. Next steps: - Stop Areva for 1 week and monitor your GI symptoms. - Complete your blood tests today. - Wait for a call to schedule your rituximab infusion once insurance approval is obtained. - Follow up with your primary care doctor on the to discuss fibromyalgia treatment. - Your prescriptions for prednisone, muscle relaxers, and Areva (if needed) have been sent to your [facility] pharmacy in [place]. Please let us know if your symptoms worsen or if you have any concerns. Shelly Su MD 02/18/2025 1:44 PM Signed Addended by: SHELLY SU on: 02/18/2025 01:44 PM Modules accepted: Orders Referring Provider: SHELLY SU [[id number]] Allergies As of Date: 02/18/2025 Noted Allergy Reaction INFLECTRA (INFLIXIMAB-DYYB) 10/24/2024 2 - Rash MOLD 06/21/2019 14 - Other: See Comments Comments: sneezing/sinus infections POLLEN 02/19/2010 9 - Itching Date Reviewed: 10/24/2024 Reviewed by: Laura Nelson LPN - Fully Assessed Reason for Visit: Rheumatoid Arthritis [772] Primary Visit Diagnosis:Pain in joint, multiple sites [M25.50] Other Visit Diagnoses:Vitamin D deficiency [E55.9] Rheumatoid arthritis with rheumatoid factor of multiple sites without organ or systems involvement (HCC) [M05.79] Fibromyalgia [M79.7] Infection and inflammatory reaction due to internal left knee prosthesis, initial encounter [T84.54XA] Order(s):predniSONE (DELTASONE) 5 mg tabletTake 3 tablets for 1 week, 2 tabs for 1 week, 1 tab for 1 week, then stopDisp: 42 tabletRfl: 0 tiZANidine (ZANAFLEX) 4 mg tabletTake 1 tablet by mouth every 8 hours as needed. Patient takes 4 mg to 6 mg at HSDisp: 90 tabletRfl: 1 leflunomide (ARAVA) 10 mg tabletTake 1 tablet by mouth once daily.Disp: 90 tabletRfl: 0 COMPLETE BLOOD COUNT AND DIFFERENTIAL [SQCBCDIF] Order #: [id number] FUTURE COMPREHENSIVE METABOLIC PANEL [SQCMP] Order #: [id number] FUTURE C-REACTIVE PROTEIN [SQCRP] Order #: [id number] FUTURE SEDIMENTATION RATE, WESTERGREN [SQWSR] Order #: [id number] FUTURE VITAMIN D 25 HYDROXY [SQVITD] Order #: [id number] FUTURE BLOOD TB SCREEN, INCUBATED [SQINTPGP] Order #: [id number] FUTURE HEPATITIS B SURFACE ANTIGEN [SQHBSAG] Order #: [id number] FUTURE HEPATITIS B SURFACE ANTIBODY [SQAHBSAG] Order #: [id number] FUTURE HEPATITIS C ANTIBODY IA WITH CONFIRMATION [VBTPHR0Q] Order #: [id number] FUTURE HEPATITIS B CORE ANTIBODY TOTAL [SQAHBCOT] Order #: [id number] FUTURE Prescriptions as of 02/20/2025 - predniSONE (DELTASONE) 5 mg tablet Take 3 tablets for 1 week, 2 tabs for 1 week, 1 tab for 1 week, then stop - tiZANidine (ZANAFLEX) 4 mg tablet Take 1 tablet by mouth every 8 hours as needed. Patient takes 4 mg to 6 mg at HS - leflunomide (ARAVA) 10 mg tablet Take 1 tablet by mouth once daily. - Cholecalciferol, Vitamin D3, (VITAMIN D-3) 50 mcg (2,000 unit) cap Take 4,000 Units by mouth once daily. - MEDICATION, NON-DATABASE Take 2 capsules by mouth once daily. MORINGA - ergocalciferol 50,000 unit capsule (VITAMIN D2, DRISDOL) TAKE 1 CAPSULE BY MOUTH ONE TIME PER WEEK - OTC NUTRITIONAL SUPPLEMENT Take 1 Cap-Full by mouth once daily. Multi-GI 5 PO one capful daily - mv-mn/folic ac/calcium/vit K1 (WOMEN'S 50 PLUS MULTIVITAMIN ORAL) Take 1 tablet by mouth once daily. - biotin 5,000 mcg subl Dissolve 1 tablet under the tongue once daily. - lisinopril (ZESTRIL) 20 mg tablet Take 20 mg by mouth once daily. - acetaminophen 650 mg CR tablet Take 650 mg by mouth two times a day. - aspirin, enteric coated (ASPIRIN, ENTERIC COATED) 81 mg EC tablet Take 81 mg by mouth once daily. - fexofenadine (JAYLEN) 180 mg tablet Take 180 mg by mouth once daily. - omeprazole (PRILOSEC) 20 mg capsule Take 20 mg by mouth once daily. 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 - You are currently taking Areva (leflunomide) 10 mg, but it is not adequately controlling your symptoms and is causing gastrointestinal (GI) side effects. - Stop taking Areva for 1 week to determine if it is causing your GI symptoms. If your symptoms improve, we will consider alternative medications. If your symptoms persist, resume Areva and we may increase the dose to 20 mg, as this is the optimal dose for RA. - We discussed starting rituximab, a strong IV medication for RA. - Rituximab is given as two infusions (day 1 and day 14) and then repeated every 6 months. - Side effects include an increased risk of infection, allergic reactions, and headache. You will be monitored during the infusion. - We will begin the insurance approval process for rituximab. Once approved, you will receive a call to schedule your infusion. - I will prescribe a short course of prednisone to help manage your symptoms temporarily. Please note that prednisone is not a long-term solution due to its potential side effects, including effects on bone density. - You will have blood tests today to monitor your condition and medication effects. We discussed your fibromyalgia: - Fibromyalgia is not an autoimmune condition and requires a different treatment approach. - Your primary care doctor will manage your fibromyalgia. You have an appointment with them on the . - In the meantime, I will prescribe a muscle relaxer to take as needed for pain and stiffness. - Medications such as Cymbalta, Lyrica, or Elavil may be helpful for fibromyalgia. These can be discussed with your primary care doctor. We discussed your pain management: - You are currently taking Tylenol Arthritis for pain. - Prednisone and muscle relaxers will be added temporarily to help manage your symptoms. Next steps: - Stop Areva for 1 week and monitor your GI symptoms. - Complete your blood tests today. - Wait for a call to schedule your rituximab infusion once insurance approval is obtained. - Follow up with your primary care doctor on the to discuss fibromyalgia treatment. - Your prescriptions for prednisone, muscle relaxers, and Areva (if needed) have been sent to your [facility] pharmacy in [place]. Please let us know if your symptoms worsen or if you have any concerns. Prescriptions ordered this encounter Disp Refills Start End PREDNISONE 5 MG TABLET 42 t* 0 02/18/2025 Sig: Take 3 tablets for 1 week, 2 tabs for 1 week, 1 tab for 1 week, then stop TIZANIDINE 4 MG TABLET 90 t* 1 02/18/2025 Route: PO Sig: Take 1 tablet by mouth every 8 hours as needed. Patient takes 4 mg to 6 mg at HS LEFLUNOMIDE 10 MG TABLET 90 t* 0 02/18/2025 Route: PO Sig: Take 1 tablet by mouth once daily. Medications Discontinued During This Encounter Prescriptions - predniSONE (DELTASONE) 5 mg tablet (Discontinued) 3 tabs daily x 3 days, 2 tabs daily x 3 days, 1 tab daily x 3 days, stop - tiZANidine (ZANAFLEX) 4 mg tablet (Discontinued) Take 4 mg by mouth every 6 hours as needed. Patient takes 4 mg to 6 mg at HS - leflunomide (ARAVA) 10 mg tablet (Discontinued) TAKE 1 TABLET BY MOUTH EVERY DAY Follow-up and Disposition History for Encounter Date Provider Department Center 02/18/2025 [id number] SU [facility] Encounter Status:Closed by SHELLY SU on 02/18/25 CNPN Observed: 02/18/2025 12:00 AM Status: COMPLETED Source: [facility] Telephone (KATLYN) MARISOL STONE ([id number]) 1960 F Date Time Provider Department 02/18/25 DARRON MOODY During your visit today, we recorded the following information about you: Stephanie Wang 02/18/2025 1:31 PM Signed Patient to have rituximab at [facility]. Dr. Su ordering. Please review and advise. Okay to call patient, she is expecting to hear from us. Stephanie Wang 02/18/2025 2:50 PM Signed Routed to [facility] in error. Mariano Watters 02/19/2025 12:48 PM Signed Spoke with patient and scheduled. Mariano Watters Allergies As of Date: 02/18/2025 Noted Allergy Reaction INFLECTRA (INFLIXIMAB-DYYB) 10/24/2024 2 - Rash MOLD 06/21/2019 14 - Other: See Comments Comments: sneezing/sinus infections POLLEN 02/19/2010 9 - Itching Date Reviewed: 10/24/2024 Reviewed by: Laura Nelson LPN - Fully Assessed Reason for Visit: Orders [681] Prescriptions as of 02/19/2025 - predniSONE (DELTASONE) 5 mg tablet Take 3 tablets for 1 week, 2 tabs for 1 week, 1 tab for 1 week, then stop - tiZANidine (ZANAFLEX) 4 mg tablet Take 1 tablet by mouth every 8 hours as needed. Patient takes 4 mg to 6 mg at HS - leflunomide (ARAVA) 10 mg tablet Take 1 tablet by mouth once daily. - Cholecalciferol, Vitamin D3, (VITAMIN D-3) 50 mcg (2,000 unit) cap Take 4,000 Units by mouth once daily. - MEDICATION, NON-DATABASE Take 2 capsules by mouth once daily. MORINGA - ergocalciferol 50,000 unit capsule (VITAMIN D2, DRISDOL) TAKE 1 CAPSULE BY MOUTH ONE TIME PER WEEK - OTC NUTRITIONAL SUPPLEMENT Take 1 Cap-Full by mouth once daily. Multi-GI 5 PO one capful daily - mv-mn/folic ac/calcium/vit K1 (WOMEN'S 50 PLUS MULTIVITAMIN ORAL) Take 1 tablet by mouth once daily. - biotin 5,000 mcg subl Dissolve 1 tablet under the tongue once daily. - lisinopril (ZESTRIL) 20 mg tablet Take 20 mg by mouth once daily. - acetaminophen 650 mg CR tablet Take 650 mg by mouth two times a day. - aspirin, enteric coated (ASPIRIN, ENTERIC COATED) 81 mg EC tablet Take 81 mg by mouth once daily. - fexofenadine (JAYLEN) 180 mg tablet Take 180 mg by mouth once daily. - omeprazole (PRILOSEC) 20 mg capsule Take 20 mg by mouth once daily. 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] 05/12/2016 Family history of ischemic heart disease [Z82.4*05/12/2016 Pulmonary hypertension, secondary ([facility]) [PKG586*05/12/2016 Chronic obstructive pulmonary disease (HCC) [J4*05/12/2016 High risk medication use [Z79.899] 08/21/2018 RA (rheumatoid arthritis) ([facility]) [M06.9] 09/22/2018 11/16/2022 Rheumatoid arthritis of multiple sites without *06/12/2021 Infective arthritis (HCC) [M00.9] 02/23/2023 Encounter Status:Closed by MARIANO WATTERS on 02/19/25 DEPRECATED HGB A1C BLD Collected: 11/27 3:10 PM Status: F Source: [facility] Comment: Specimen Type : BLOOD SPECIMEN Ordering Facility: [facility] Address: [address] [place] [address] TYPE CODE TESTS RESULT OUT OF RANGE REFERENCE UNITS LAB 4548-4(LOINC) HbA1c MFr Bld 5.2 4.3-5.6 % Result Comment: [place] [employer] guidelines indicate that patients with HgbA1c in the range 5.7-6.4% are at increased risk for development of diabetes, and intervention by lifestyle modification may be beneficial. HgbA1c greater or equal to 6.5% is considered diagnostic of diabetes. LAB 17568-6(LOINC) Est. average glucose Bld gHb Est-mCnc 103 mg/dL Result Comment: eAG: (Estima loki average glucose) is a calculated value from HgbA1c and is administrative representative of the average blood glucose level in the last 2-3 month period. Performed By: #### 88734-7 # ### [facility] CLIA [id number] [address] [place] [address] [place] COMP METAB 2000 PNL SERPL Collected: 3:10 PM Status: F Source: [facility] Comment: Specimen Type : BLOOD SPECIMEN Ordering Facility: [facility] Address: [address] [place] [address] TYPE CODE TESTS RESULT OUT OF RANGE REFERENCE UNITS LAB 2885-2(LOINC) Prot SerPl-mCnc 7.9 6.3-8.0 g/dL LAB 1751-7(LOINC) Albumin SerPl-mCnc 4.2 3.9-4.9 g/dL LAB 84051-9(LOINC) Calcium SerPl-mCnc 9.9 8.5-10.2 mg/dL LAB 1975-2(LOINC) Bilirub SerPl-mCnc 0.4 0.2-1.3 mg/dL LAB 6768-6(LOINC) ALP SerPl-cCnc 96 34-123 U/L LAB 1920-8(LOINC) AST SerPl-cCnc 10 Low 13-35 U/L LAB 1742-6(LOINC) ALT SerPl-cCnc 8 7-38 U/L LAB 2345-7(LOINC) Glucose SerPl-mCnc 127 High 74-99 mg/dL Result Comment: The [place] [employer] (ADA) provides guidance for cutoff values for fasting glucose and random glucose. The ADA defines fasting as no caloric intake for at least 8 hours. Fasting plasma glucose results between 100 to 125 mg/dL indicate increased risk for diabetes (prediabetes). Fasting plasma glucose results greater than or equal to 126 mg/dL meet the criteria for diagnosis of diabetes. In the absence of unequivocal hyperglycemia, results should be confirmed by repeat testing. In a patient with classic symptoms of hyperglycemia or hyperglycemic crisis, random plasma glucose results greater than or equal to 200 mg/dL meet the criteria for diagnosis of diabetes. Reference: Standards of Medical Care in Diabetes 2016, [place] [employer]. Diabetes Care. 2016.39(Suppl 1). LAB 3094-0(LOINC) BUN SerPl-mCnc 16 7-21 mg/ dL LAB 2160-0(LOINC) Creat SerPl-mCnc 0.73 0.58-0.96 mg/dL LAB 2951-2(LOINC) Sodium SerPl-sCnc 136 136-144 mmol/L LAB 2823-3(LOINC) Potassium SerPl-sCnc 3.5 Low 3.7-5.1 mmol/L LAB 2075-0(LOINC) Chloride SerPl-sCnc 98 98-107 mmol/L LAB 2028-9(LOINC) CO2 SerPl-sCnc 25 22-30 mmo l/L LAB 65123-4(LOINC) Anion Gap SerPl-sCnc 13 8-15 mmol/L LAB 80942-3(LOINC) Creatinine + eGFR Pnl SerPlBld 91 >=60 mL/min/1 .73m??? Result Comment: Estimated Gl omerular Filtration Rate (eGFR) is calculated using the 2020 CKD-EPI creatinine equation. This equation utilizes serum creatinine, sex, and age as parameters. The creatinine assay has traceable calibration to isotope dilution-mass spectrometry. Refer to KDIGO guidelines for clinical interpretation. In patients with unstable renal function, e.g. those with acute kidney injury, the eGFR may not accurately reflect actual GFR. Performed By: #### 34850-1 # ### [facility] CLIA [id number] [address] [place] [address] [place] CBC W AUTO DIFF BLD Collected: 11/27/2024 3:[address] atus: F Source: [facility] Order Comment: Specimen Type : BLOOD SPECIMEN Ordering Facility: [facility] Address: [address] [place] [address] TYPE CODE TESTS RESULT OUT OF RANGE REFERENCE UNITS LAB 6690-2(LOINC) WBC # Bld Auto 13.31 High 3.70-11.00 k/uL LAB 789-8(LOINC) RBC # Bld Auto 4.83 3.90-5.20 m/ uL LAB 718-7(LOINC) Hgb Bld-mCnc 12.8 11.5-15.5 g/dL LAB 4544-3(LOINC) Hct VFr Bld Auto 41.5 36.0-46.0 % LAB 787-2(LOINC) MCV RBC Auto 85.9 80.0-100.0 fL LAB 785-6(LOINC) MCH RBC Qn Auto 26.5 26.0-34.0 p g LAB 786-4(LOINC) MCHC RBC Auto-mCnc 30.8 30.5-36.0 g/dL LAB 72991-0(LOINC) RDW RBC-Rto 14.6 11.5-15.0 % LAB 777-3(LOINC) Platelet # Bld Auto 552 High 150-400 k/uL LAB 27046-9(LOINC) PMV Bld Auto 9.2 9.0-12.7 fL LAB 770-8(LOINC) Neutrophils/leuk NFr Bld Auto 70.2 % LAB 751-8(LOINC) Neutrophils # Bld Auto 9.36 High 1.45-7.50 k/uL LAB 736-9(LOINC) Lymphocytes/leuk NFr Bld Auto 18.0 % LAB 731-0(LOINC) Lymphocytes # Bld Auto 2.40 1.00-4.00 k/uL LAB 5905-5(LOINC) Monocytes/leuk NFr Bld Auto 6.7 % LAB 742-7(LOINC) Monocytes # Bld Auto 0.89 High <0.87 k/uL LAB 713-8(LOINC) Eosinophil/leuk NFr Bld Auto 3.2 % LAB 711-2(LOINC) Eosinophil # Bld Auto 0.42 <0.46 k/uL LAB 706-2(LOINC) Basophils/leuk NFr Bld Auto 0.8 % LAB 704-7(LOINC) Basophils # Bld Auto 0.10 <0.11 k/uL LAB 99189-2(LOINC) Imm Granulocytes/michel k NFr Bld Auto 1.1 % LAB 50906-1(LOINC) Imm Granulocytes # Bld Auto 0.14 High <0.10 k/uL LAB 73631-0(LOINC) nRBC/100 WBC Bld-Rto 0.0 /100 WBC LAB 771-6(INC) nRBC # Bld Auto <0.01 <0.01 k/u L LAB 26000-6(LOINC) Differential method Bld Auto Performed By: #### 71702-0 # ### [facility] CLIA [id number] [address] [place] [address] [place] ESR BLD QN WESTRGRN Collected: 11/27/2024 3:[address] atus: F Source: [facility] Order Comment: Specimen Type : BLOOD SPECIMEN Ordering Facility: [facility] Address: [address] [place] [address] TYPE CODE TESTS RESULT OUT OF RANGE REFERENCE UNITS LAB 4537-7([facility]) ESR Bld Qn Westrgrn 54 High 0-20 mm/hr Performed By: #### 4537-7 ## ## [facility] CLIA [id number] [address] [place] [address] [place] CRP SERPL-MCNC Collected: 11/27/2024 3:10 PM Status: F Source: [facility] Order Comment: Specimen Type : BLOOD SPECIMEN Ordering Facility: [facility] Address: [address] [place] [address] TYPE CODE TESTS RESULT OUT OF RANGE REFERENCE UNITS LAB 1988-01(LOINC) CRP SerPl-mCnc 5.4 High <0.9 mg/dL Performed By: #### 1988-01 ## ## [facility] CLIA [id number] [address] [place] [address] [place] [id number] [place] PROGRESS Observed: 11/15/2024 7:28 AM Status: COMPLETED Source: [facility] HNO ID: [id number] Author: KELLY LOWE PA-C Service: ? Author Type: Physician Manager Sports Type: Progress Notes Filed: 11/15/2024 15:48 Note Text: [facility] Arthritis and Rheumatology Kelly Lowe [address] [place] [address] RHEUMATOLOGY VIRTUAL VISIT PROGRESS NOTE This is a virtual visit using [employer] Video Visit. It required patient-provider interaction for the medical decision making as documented below. I have communicated my name and active licensure. The patient's identity and physical location were verified at the time of this visit. Either the patient or their legal administrative representative has been informed of the risks and benefits of -- and alternatives to -- treatment through a remote evaluation and consents to proceed with the evaluation remotely.e clinic with questions. Subjective Last OV: 10/24/24 HPI: Marisol Stone is a 64 year old female who presents for follow up of RA. She has been on Arava for 3 weeks so far. Has been off of prednisone. She uses Tylenol Arthritis, but doesn't help with her pain. She notes she has severe pain. Can't walk because of pain. Pain in the bottoms of her feet, ankles, shoulders and neck. She reports she has swelling in her wrists. She notes her shoes feel tight. She notes she has trouble with getting dressed because of pain in the muscles in her upper arms and in her shoulder blades. She states when she was on prednisone she felt better. She states she breathes heavy and walks slowly. When she gets up at night she has to use her cane. She is not eating a lot, does not have an appetite. Feels like her "stomach is swollen". She notes she gets diarrhea, can happen quickly. Had had some nausea. Diarrhea improved, mild yesterday and none last week. Rheumatologic disease summary: First OV date: 06/02/2018 Diagnosis: RA Serologies: ccp >250, RF 176, FLORA neg Erosions: yes - 2016 Current therapy: pred (taper by PCP) Prior therapy: MTX (d/c due to TKA infection), Inflectra (allergy), Actemra (? Gut perforation), Plaquenil (GI upset), Arava Other: marijuana use, marijuana gummies; CARDIAC STENT (2015 - ) Initial rheumatology visit HPI (06/02/2018 Dr. Su): 58 year old female who presents with rheumatoid arthritis. Patient was diagnosed with RA 2 years ago - MTX gave nausea after one month, Humira every other wek and then very week for 5 months - did not help. She has been on prednisone for 2 years and would like to be off of it completely. Sh is unable to walk when she is of prednisone. 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 She also has BMD, x rays, blood work in apr. She was also presribed SSZ which did not help. Had steroid injection. Leflunamide did not hlp RA involved knees and hands. At present she reports swelling of knees. On prednisone She also has fibromyalgia and reports sharp pain with every step. "tail bone" pain H/o NH in 2016. episodes of dizziness and was on Holter monitor. Poor historian. She will be seeing ortho next week for ankle injury. Family history of autoimmune disease: aunt and cousin with RA Smoking status: Tobacco Use: .5 packs/day Quit 04/22/2016. Types: Cigarettes Interval Review of Systems CONSTITUTIONAL: Recent Weight change: No Fever: No EENT: Dryness in eyes: No Dryness of mouth: No Oral ulcers: No CARDIOVASCULAR: Pain in chest: No RESPIRATORY: Shortness of breath: No Cough: No GASTROINTESTINAL: Nausea: No Vomiting: No Changes in bowel movements: No Heartburn: No MUSCULOSKELETAL: Per HPI INTEGUMENTARY: Rash: No NEUROLOGICAL SYSTEM: Headaches: No All other ROS reviewed, pertinent positives in HPI PAST MEDICAL HISTORY Diagnosis Date Coronary artery disease Fibromyalgia Osteoarthritis PMH - PAST MEDICAL HISTORY OF depression Rheumatoid arthritis (HCC) PAST SURGICAL HISTORY Procedure Laterality Date BIOPSY BREAST 2002 fibroadenoma CC PCI CORONARY INTERVENT LAPS ABD PRTMANDOMENTUM DX W/WO SPEC BR/WA SPX Laparoscopy lysis of adhesions LIG/TRNSXJ FLP TUBE ABDL/VAG APPR UNI/BI Tubal ligation PAST SURGICAL HISTORY OF 08/2011 colonoscopy- bleeding ulcer PAST SURGICAL HISTORY OF Right Total right knee replacement PAST SURGICAL HISTORY OF Left Total left knee replacement UPPER GI History Review: I have reviewed and modified as needed, the following during this visit: Allergies, Past Medical History, Past Surgical History, Past Family History, Past Social History. Physical Exam: Limited by telemedicine GENERAL: Well appearing, alert, comfortable, in no acute distress, well-hydrated, well nourished. SKIN: No obvious rash Recent Lab Results: WBC (k/uL) Date Value 11/15/2022 9.69 RBC (m/uL) Date Value 11/15/2022 4.28 Hemoglobin (g/dL) Date Value 11/15/2022 12.3 Hematocrit (%) Date Value 11/15/2022 38.0 Platelet Count (k/uL) Date Value 11/15/2022 406 (H) Creatinine (mg/dL) Date Value 11/15/2022 0.58 Calcium, Total (mg/dL) Date Value 11/15/2022 9.8 Alkaline Phosphatase (U/L) Date Value 11/15/2022 95 AST (U/L) Date Value 11/15/2022 13 ALT (U/L) Date Value 11/15/2022 11 Latest Ref Rng AND Units 03/12/2020 07/27/2022 ESR, WSR WSR 0 - 20 mm/hr 54 45 Latest Ref Rng AND Units 07/27/2022 11/15/2022 CRP CRP <0.9 mg/dL 2.1 1.8 Recent Radiology Results: None Assessment / Plan: (M05.79) Rheumatoid arthritis of multiple sites without organ or system involvement with positive rheumatoid factor (HCC) (primary encounter diagnosis) (Z79.899) High risk medication use (M79.7) Fibromyalgia The patient presents today for ongoing pain. She is reporting diffuse pain of her shoulder blades, neck, upper arm muscles, along with several joints as listed above in the HPI. She appears to have an overlap of fibromyalgia along with her rheumatoid arthritis. Physical exam extremely limited today due to telemedicine. Long discussion with the patient today regarding treatment for rheumatoid arthritis versus treatment for fibromyalgia. Patient was crying during most of the visit and reported that she had low mood when she came off the prednisone which also correlated with worsening muscle pain. Fibromyalgia was discussed with the patient. Fibromyalgia is a common widespread chronic pain disorder. The understanding of the pain processing dysfunction in fibromyalgia has progressed over the last several years. Research has suggested a neurogenic origin of the widespread pain associated with fibromyalgia. Imbalances of neurochemicals of the ALL SOURCE INTELLIGENCE ANALYST have been associated with allodynia and hyperalgesia. Fibromyalgia varies from one patient to another, which results in different responses to medications used in the disease. Treatment for fibromyalgia involves nonpharmacologic and pharmacologic treatments. Nonpharmacologic therapies are preferred as first line treatment in fibromyalgia and include, but are not limited to, physical therapy, aqua therapy, swimming, Toro Chi, yoga, weight loss, quality sleep / good sleep hygiene, warm / cool compresses, gentle stretching, and cognitive behavioral therapy. Pt reports she feels best on prednisone and requests prednisone today. Discussed production posting clerk prednisone is not appropriate for management. Complications of chronic steroids include, but are not limited to, obesity, hypertension, diabetes, osteoporotic fractures, avascular necrosis, glaucoma, cataracts, cushingoid features, atherosclerotic disease, myopathy, depression, psychosis, and infections. For these reasons we recommend tapering and/or discontinuing prednisone whenever possible. Will do a brief course of prednisone as she is still early in her treatment and suspect she also is having a rheumatoid flare exacerbated by fibromyalgia. Discussed leflunomide with the patient. Overall appears side effects are manageable at this time. Continue with the current medication. May need to consider alternative medication versus adding second DMARD versus adding a biologic pending course. Labs previously ordered for monitoring for medication toxicity. The patient reports she is up frequently at night due to frequent urination and also has frequent urination during the day. Will add A1c to her blood work. Patient needs to follow-up with primary care for concerns of frequent urination -differential for this includes diabetes and overactive bladder which are not managed by rheumatology. Patient advised to hold any immunosuppressant medication if sick or on antibiotics. Patient advised to contact the clinic with questions. Last rheumatology OV note reviewed. I reviewed the above information with the patient multiple times as patient got the information confused. Patient was able to repeat back the treatment plan for today. I also clarified her last appointment's treatment plan and she will contact hematology as previously discussed. I provided her with the phone number to schedule today. Discussed the above in detail with the patient. All questions were answered. Medications: Brief prednisone taper Testing: as below Follow up: As scheduled in December Pt instructed to contact the clinic with concerns or questions. [facility] on 11/15/24 COMPLETE BLOOD COUNT AND DIFFERENTIAL COMPREHENSIVE METABOLIC PANEL SEDIMENTATION RATE, WESTERGREN C-REACTIVE PROTEIN HEMOGLOBIN A1C Kelly Lowe PA-C I spent a total of 46 minutes on the date of the service which included preparing to see the patient, [id number] patient care, completing clinical documentation, obtaining and/or reviewing separately obtained history, performing a medically appropriate examination, counseling and educating the patient/family/caregiver, ordering medications, tests, or procedures, and communicating results to the patient/family/caregiver. SYEDA Observed: 11/14/2024 12:00 AM Status: COMPLETED Source: [facility] Telephone (RHBERNA) MARISOL STONE ([id number]) 1960 F Date Time Provider Department 11/14/24 KELLY LOWE During your visit today, we recorded the following information about you: Laura Nelson LPN 11/14/2024 1:34 PM Signed Patient called asking if she can have Kelly Lowe PA-C give her a call. Patient states she is in so much pain and she would like to get back on the prednisone. Patient states, "I am just a wreck." Patient complains of brain fog with her new medication. Patient states, "It's not doing anything." Patient tearful during the telephone call. Patient states, she told me if Dr. Odom would not prescribe the prednisone and if he doesn't she would prescribe it and she would just give me half. Constant pain Large joints Not able to walk Migraines Patient states, "I can't take this pain anymore." Patient states, "I am not suicidal." Patient scheduled on 12/05/2024. Scheduled for vv on 11/15/2024. Provided number for [employer] Help Desk, . Laura Nelson LPN Allergies As of Date: 11/14/2024 Noted Allergy Reaction INFLECTRA (INFLIXIMAB-DYYB) 10/24/2024 2 - Rash MOLD 06/21/2019 14 - Other: See Comments Comments: sneezing/sinus infections POLLEN 02/19/2010 9 - Itching Date Reviewed: 10/24/2024 Reviewed by: Laura Nelson LPN - Fully Assessed Reason for Visit: Patient Question [1697] Prescriptions as of 11/14/2024 - Cholecalciferol, Vitamin D3, (VITAMIN D-3) 50 mcg (2,000 unit) cap Take 4,000 Units by mouth once daily. - predniSONE (DELTASONE) 10 mg tablet Take 10 mg by mouth once daily. - MEDICATION, NON-DATABASE Take 2 capsules by mouth once daily. MORINGA - leflunomide (ARAVA) 10 mg tablet Take 1 tablet by mouth once daily. - ergocalciferol 50,000 unit capsule (VITAMIN D2, DRISDOL) TAKE 1 CAPSULE BY MOUTH ONE TIME PER WEEK - OTC NUTRITIONAL SUPPLEMENT Take 1 Cap-Full by mouth once daily. Multi-GI 5 PO one capful daily - mv-mn/folic ac/calcium/vit K1 (WOMEN'S 50 PLUS MULTIVITAMIN ORAL) Take 1 tablet by mouth once daily. - biotin 5,000 mcg subl Dissolve 1 tablet under the tongue once daily. - lisinopril (ZESTRIL) 20 mg tablet Take 20 mg by mouth once daily. - tiZANidine (ZANAFLEX) 4 mg tablet Take 4 mg by mouth every 6 hours as needed. Patient takes 4 mg to 6 mg at HS - acetaminophen 650 mg CR tablet Take 650 mg by mouth two times a day. - aspirin, enteric coated (ASPIRIN, ENTERIC COATED) 81 mg EC tablet Take 81 mg by mouth once daily. - fexofenadine (JAYLEN) 180 mg tablet Take 180 mg by mouth once daily. - omeprazole (PRILOSEC) 20 mg capsule Take 20 mg by mouth once daily. 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 Telephone (RHBATH) MARISOL STONE ([id number]) 1960 F Date Time Provider Department 11/07/24 KELLY LOWE During your visit today, we recorded the following information about you: Laura Nelson LPN 11/07/2024 12:36 PM Signed Patient states she was in remission with RA, but started having symptoms last fall. PCP put her on steroids and she felt the best she has ever felt. Arava started on 10/25/2024. Taking as prescribed. Patient has been off prednisone for around ten days. Patient was on a taper for 15 days. PCP prescribed. Patient feels like all of her symptoms have returned since she is off pred. Patient feels like she is having side effects with the Arava. Having migraines, nausea, fecal incontinence. Having to wear incontinence briefs. Onset around one week ago. Patient stated you discussed SE with her during visit. Patient states you instructed her to contact PCP for prednisone and Dr. Odom will not prescribe more and told her to have Rheum fill the med. Dr. Odom off on Fridays. Patient asked her PCP to refer her to Supervisor Sawing [employer]. RISHI Forman Megan, PA-C 11/07/2024 4:54 PM Signed See other TE from today. Allergies As of Date: 11/07/2024 Noted Allergy Reaction INFLECTRA (INFLIXIMAB-DYYB) 10/24/2024 2 - Rash MOLD 06/21/2019 14 - Other: See Comments Comments: sneezing/sinus infections POLLEN 02/19/2010 9 - Itching Date Reviewed: 10/24/2024 Reviewed by: Laura Nelson LPN - Fully Assessed Reason for Visit: Patient Update [1234] Prescriptions as of 11/07/2024 - Cholecalciferol, Vitamin D3, (VITAMIN D-3) 50 mcg (2,000 unit) cap Take 4,000 Units by mouth once daily. - predniSONE (DELTASONE) 10 mg tablet Take 10 mg by mouth once daily. - MEDICATION, NON-DATABASE Take 2 capsules by mouth once daily. MORINGA - leflunomide (ARAVA) 10 mg tablet Take 1 tablet by mouth once daily. - ergocalciferol 50,000 unit capsule (VITAMIN D2, DRISDOL) TAKE 1 CAPSULE BY MOUTH ONE TIME PER WEEK - OTC NUTRITIONAL SUPPLEMENT Take 1 Cap-Full by mouth once daily. Multi-GI 5 PO one capful daily - mv-mn/folic ac/calcium/vit K1 (WOMEN'S 50 PLUS MULTIVITAMIN ORAL) Take 1 tablet by mouth once daily. - biotin 5,000 mcg subl Dissolve 1 tablet under the tongue once daily. - lisinopril (ZESTRIL) 20 mg tablet Take 20 mg by mouth once daily. - tiZANidine (ZANAFLEX) 4 mg tablet Take 4 mg by mouth every 6 hours as needed. Patient takes 4 mg to 6 mg at HS - acetaminophen 650 mg CR tablet Take 650 mg by mouth two times a day. - aspirin, enteric coated (ASPIRIN, ENTERIC COATED) 81 mg EC tablet Take 81 mg by mouth once daily. - fexofenadine (JAYLEN) 180 mg tablet Take 180 mg by mouth once daily. - omeprazole (PRILOSEC) 20 mg capsule Take 20 mg by mouth once daily. 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 Telephone (AGRHEUHWN) MARISOL STONE ([id number]) 1960 F Date Time Provider Department 11/07/24 KELLY LOWE During your visit today, we recorded the following information about you: Kelly Lowe PA-C 11/07/2024 4:43 PM Signed Prednisone use was not discussed outside of completion of her PCP taper, she was not instructed to call her PCP for more prednisone. See other encounter 11/01 regarding this. She needs an appointment if she is having side effects to Arava and flares. Schedule with PA in office. Laura Nelson LPN 11/09/2024 2:27 PM Signed [facility] RISHI Forman Tina, LPN 11/09/2024 3:07 PM Signed Patient notified and verbalized understanding. Patient states she probably doesn't remember. Patient declined to schedule an appointment at this time. Patient tearful during call. Patient encouraged to reach out if she changes her mind. Patient states she is going through a hard time because she had 15 days of feeling good and now she has increased pain. Patient recalled you told her it could take several weeks of taking Arava to begin to see results. Patient states she will have to deal with the pain and wait and see if the Arava helps. RISHI Forman Megan, PA-C 11/09/2024 4:16 PM Signed Noted. Pt offered appt to discuss Arava and pred, pt declined. Allergies As of Date: 11/07/2024 Noted Allergy Reaction INFLECTRA (INFLIXIMAB-DYYB) 10/24/2024 2 - Rash MOLD 06/21/2019 14 - Other: See Comments Comments: sneezing/sinus infections POLLEN 02/19/2010 9 - Itching Date Reviewed: 10/24/2024 Reviewed by: Laura Nelson LPN - Fully Assessed Reason for Visit: Patient Update [1234] Prescriptions as of 11/09/2024 - Cholecalciferol, Vitamin D3, (VITAMIN D-3) 50 mcg (2,000 unit) cap Take 4,000 Units by mouth once daily. - predniSONE (DELTASONE) 10 mg tablet Take 10 mg by mouth once daily. - MEDICATION, NON-DATABASE Take 2 capsules by mouth once daily. MORINGA - leflunomide (ARAVA) 10 mg tablet Take 1 tablet by mouth once daily. - ergocalciferol 50,000 unit capsule (VITAMIN D2, DRISDOL) TAKE 1 CAPSULE BY MOUTH ONE TIME PER WEEK - OTC NUTRITIONAL SUPPLEMENT Take 1 Cap-Full by mouth once daily. Multi-GI 5 PO one capful daily - mv-mn/folic ac/calcium/vit K1 (WOMEN'S 50 PLUS MULTIVITAMIN ORAL) Take 1 tablet by mouth once daily. - biotin 5,000 mcg subl Dissolve 1 tablet under the tongue once daily. - lisinopril (ZESTRIL) 20 mg tablet Take 20 mg by mouth once daily. - tiZANidine (ZANAFLEX) 4 mg tablet Take 4 mg by mouth every 6 hours as needed. Patient takes 4 mg to 6 mg at HS - acetaminophen 650 mg CR tablet Take 650 mg by mouth two times a day. - aspirin, enteric coated (ASPIRIN, ENTERIC COATED) 81 mg EC tablet Take 81 mg by mouth once daily. - fexofenadine (JAYLEN) 180 mg tablet Take 180 mg by mouth once daily. - omeprazole (PRILOSEC) 20 mg capsule Take 20 mg by mouth once daily. 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 Telephone (CHRISTINEHEUHWN) MARISOL STONE ([id number]) 1960 F Date Time Provider Department 11/01/24 KELLY LOWE During your visit today, we recorded the following information about you: Go Kendall MA 11/01/2024 2:32 PM Signed Sherin called from [facility] states Ilene Dias will not manage patient prednisone,it should be manage by a certified ski patroller. I was seen today and patient did not get prednisone. Kelly Lowe PA-C 11/01/2024 2:41 PM Signed PCP gave pt prednisone taper and she was on last few days of this taper. I was not restarting prednisone for her, I put her on DMARD therapy. I did not request for PCP to manage chronic prednisone nor should pt be put on snf steroids. Started Arava 10 mg daily with close follow up. starting prednisone from her PCP. Started at 40 mg x 5 days, then 20 mg x 5 days, now on 10 mg... Today is her first day on 10 mg pred. Will do this for 5 days then the taper will be complete." The patient presents today for follow up of RA after a 16 month hiatus from follow up. She has synovitis and tenderness as described above. Has not been on Arava, will start this today. Referral to hematology for abnormal SPEP. Repeat labs in 4 weeks after starting Arava to monitor for drug toxicity. Continue pred taper as per PCP directions." Go Kendall MA 11/02/2024 9:13 AM Signed Sherin is aware and will relate the message to Ilene dias. Allergies As of Date: 11/01/2024 Noted Allergy Reaction INFLECTRA (INFLIXIMAB-DYYB) 10/24/2024 2 - Rash MOLD 06/21/2019 14 - Other: See Comments Comments: sneezing/sinus infections POLLEN 02/19/2010 9 - Itching Date Reviewed: 10/24/2024 Reviewed by: Laura Nelson LPN - Fully Assessed Reason for Visit: Patient Update [1234] Medication Problem [65] Prescriptions as of 11/02/2024 - Cholecalciferol, Vitamin D3, (VITAMIN D-3) 50 mcg (2,000 unit) cap Take 4,000 Units by mouth once daily. - predniSONE (DELTASONE) 10 mg tablet Take 10 mg by mouth once daily. - MEDICATION, NON-DATABASE Take 2 capsules by mouth once daily. MORINGA - leflunomide (ARAVA) 10 mg tablet Take 1 tablet by mouth once daily. - ergocalciferol 50,000 unit capsule (VITAMIN D2, DRISDOL) TAKE 1 CAPSULE BY MOUTH ONE TIME PER WEEK - OTC NUTRITIONAL SUPPLEMENT Take 1 Cap-Full by mouth once daily. Multi-GI 5 PO one capful daily - mv-mn/folic ac/calcium/vit K1 (WOMEN'S 50 PLUS MULTIVITAMIN ORAL) Take 1 tablet by mouth once daily. - biotin 5,000 mcg subl Dissolve 1 tablet under the tongue once daily. - lisinopril (ZESTRIL) 20 mg tablet Take 20 mg by mouth once daily. - tiZANidine (ZANAFLEX) 4 mg tablet Take 4 mg by mouth every 6 hours as needed. Patient takes 4 mg to 6 mg at HS - acetaminophen 650 mg CR tablet Take 650 mg by mouth two times a day. - aspirin, enteric coated (ASPIRIN, ENTERIC COATED) 81 mg EC tablet Take 81 mg by mouth once daily. - fexofenadine (JAYLEN) 180 mg tablet Take 180 mg by mouth once daily. - omeprazole (PRILOSEC) 20 mg capsule Take 20 mg by mouth once daily. 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 HNO ID: [id number] Author: KELLY LOWE PA-C Service: ? Author Type: Physician Manager Sports Type: Progress Notes Filed: 10/30/2024 11:25 Note Text: [facility] Kellydavid Lowe [address] [place] [address] Subjective Last OV: 06/08/23 HPI: Marisol tSone is a 64 year old female who presents for follow up of RA. She reports she had been doing well until June. She notes she was told she didn't have RA anymore and didn't need treatment. Pt also didn't want to be on these medications because they mess her up. Since June 2024 she has been having more trouble with her wrists, R arm, shoulders. She also reports neck pain and ankle pain. Her knee replacements were hurting, but not hurting as much since starting prednisone from her PCP. Started at 40 mg x 5 days, then 20 mg x 5 days, now on 10 mg. She notes she feels the difference with the pred taper. Today is her first day on 10 mg pred. Will do this for 5 days then the taper will be complete. She notes she takes Tylenol for her pain, which does not help now. Doesn't take it as much as she used to. She smokes marijuana and uses marijuana gummies, states no one will give her anything for pain. She has side effects to pred - headaches, sweats, insomnia, frequent urination. Before she was on pred she felt stiff in her knees. A lot of stress right now, living alone. Crying all the time. Anxiety of doing things on her own, was living with her daughter for 10 years. She had labs from her PCP done recently. Notes she got a brief call about an abnormal protein and wanted to f/u with her in 6 months. Rheumatologic disease summary: First OV date: 06/02/2018 Diagnosis: RA Serologies: ccp >250, RF 176, FLORA neg Erosions: yes - 2017 Current therapy: pred (taper by PCP) Prior therapy: MTX (d/c due to TKA infection), Inflectra (allergy), Actemra (? Gut perforation), Plaquenil (GI upset) Other: marijuana use, marijuana gummies; CARDIAC STENT (2015 - ) Initial rheumatology visit HPI (06/02/2018 Dr. Su): 58 year old female who presents with rheumatoid arthritis. Patient was diagnosed with RA 2 years ago - MTX gave nausea after one month, Humira every other wek and then very week for 5 months - did not help. She has been on prednisone for 2 years and would like to be off of it completely. Sh is unable to walk when she is of prednisone. 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 She also has BMD, x rays, blood work in apr. She was also presribed SSZ which did not help. Had steroid injection. Leflunamide did not hlp RA involved knees and hands. At present she reports swelling of knees. On prednisone She also has fibromyalgia and reports sharp pain with every step. "tail bone" pain H/o NH in 2016. episodes of dizziness and was on Holter monitor. Poor historian. She will be seeing ortho next week for ankle injury. Family history of autoimmune disease: aunt and cousin with RA Smoking status: Tobacco Use: .5 packs/day Quit 04/22/2016. Types: Cigarettes Interval Review of Systems CONSTITUTIONAL: Recent Weight change: No Fever: No EENT: Dryness in eyes: No Dryness of mouth: No Oral ulcers: No CARDIOVASCULAR: Pain in chest: No RESPIRATORY: Shortness of breath: No Cough: No GASTROINTESTINAL: Nausea: No Vomiting: No Changes in bowel movements: No Heartburn: No MUSCULOSKELETAL: Per HPI INTEGUMENTARY: Rash: No NEUROLOGICAL SYSTEM: Headaches: No All other ROS reviewed, pertinent positives in HPI PAST MEDICAL HISTORY Diagnosis Date Coronary artery disease Fibromyalgia Osteoarthritis PMH - PAST MEDICAL HISTORY OF depression Rheumatoid arthritis (HCC) PAST SURGICAL HISTORY Procedure Laterality Date BIOPSY BREAST 2002 fibroadenoma CC PCI CORONARY INTERVENT LAPS ABD PRTMANDOMENTUM DX W/WO SPEC BR/WA SPX Laparoscopy lysis of adhesions LIG/TRNSXJ FLP TUBE ABDL/VAG APPR UNI/BI Tubal ligation PAST SURGICAL HISTORY OF 08/2011 colonoscopy- bleeding ulcer PAST SURGICAL HISTORY OF Right Total right knee replacement PAST SURGICAL HISTORY OF Left Total left knee replacement UPPER GI History Review: I have reviewed and modified as needed, the following during this visit: Allergies, Past Medical History, Past Surgical History, Past Family History, Past Social History. Physical Exam BP 163/88 Pulse 76 Temp 36.7 ?C (98 ?F) (Temporal) Resp 13 Ht 157.6 cm (5' 2.05") Wt 86.1 kg (189 lb 13.1 oz) SpO2 95% BMI 34.67 kg/m? GENERAL: Well appearing, alert, comfortable, in no acute distress, well-hydrated, well nourished. HEENT: Negative for external ears normal. Canals are clear. Eye Exam normal. External nose normal, no nasal ulcer or throat ulcer. NECK: NECK Supple, no adenopathy NEURO: Motor and sensory exam normal MOTOR: Normal; including tone, gait, stressed gait, power and coordination. SKIN: Negative for alopecia, skin rash, malar rash, skin lesion, skin ulcer, pits, thickening, color changes, telangiectasias, nail changes, nail ridging, nail pitting, onycholysis MUSCULOSKELETAL: Tenderness: RIGHT - shoulder, wrist, 1-3 MCPs, 1st IP, 2-5 PIPs, ankle; LEFT - shoulder, wrist, 4-5 MCPs, 2-5 PIPs, ankle Synovitis: RIGHT - wrist, 2-3 MCPs; LEFT - wrist, 2-3 MCPs Kelly Lowe PA-C physical exam October 24, 2024 Recent Lab Results: PCP labs 10/2024: FLORA neg Albumin 3 Faint band in gamma region suspicious for monoclonal immunoglobulin. This band may represent a benign spike as seen in older people or could be a paraprotein as seen in Multiple Myeloma, Waldenstrom's Macroglobulinemia or Lymphoma. Depending on clinical circumstances, further diagnostic studies may include serum immunofixation or serum free light chain quantitation. CBC: WBC 10.4, RBC 4.12, H/H 11.2/35.8, PLT 657 CRP 83.7 ESR 63 CMP: ALP 82, ALT 9, AST 7, Ca 9.6, Creat 0.66, GFR 115 RF 53 TSH 1.7 Uric acid 4.9 WBC (k/uL) Date Value 11/15/2022 9.69 RBC (m/uL) Date Value 11/15/2022 4.28 Hemoglobin (g/dL) Date Value 11/15/2022 12.3 Hematocrit (%) Date Value 11/15/2022 38.0 Platelet Count (k/uL) Date Value 11/15/2022 406 (H) Creatinine (mg/dL) Date Value 11/15/2022 0.58 Calcium, Total (mg/dL) Date Value 11/15/2022 9.8 Alkaline Phosphatase (U/L) Date Value 11/15/2022 95 AST (U/L) Date Value 11/15/2022 13 ALT (U/L) Date Value 11/15/2022 11 Latest Ref Rng AND Units 03/12/2020 07/27/2022 ESR, WSR WSR 0 - 20 mm/hr 54 45 Latest Ref Rng AND Units 07/27/2022 11/15/2022 CRP CRP <0.9 mg/dL 2.1 1.8 Recent Radiology Results: None Assessment / Plan: (M05.79) Rheumatoid arthritis of multiple sites without organ or system involvement with positive rheumatoid factor (HCC) (primary encounter diagnosis) (Z79.899) High risk medication use (R77.8) Abnormal SPEP The patient presents today for follow up of RA after a 16 month hiatus from follow up. She has synovitis and tenderness as described above. Has not been on Arava, will start this today. Referral to hematology for abnormal SPEP. Repeat labs in 4 weeks after starting Arava to monitor for drug toxicity. Continue pred taper as per PCP directions. Labs ordered for monitoring for medication toxicity. Patient advised to hold any immunosuppressant medication if sick or on antibiotics. Patient advised to contact the clinic with questions. Last rheumatology OV note reviewed. Discussed the above in detail with the patient. All questions were answered. Medications: Arava 10 mg daily Testing: as below Follow up: 6 weeks Pt instructed to contact the clinic with concerns or questions. Office Visit on 10/24/24 COMPLETE BLOOD COUNT AND DIFFERENTIAL COMPREHENSIVE METABOLIC PANEL SEDIMENTATION RATE, WESTERGREN C-REACTIVE PROTEIN CONSULT TO HEMATOLOGY Kelly Lowe PA-C I spent a total of 55 minutes on the date of the service which included preparing to see the patient, [id number] patient care, completing clinical documentation, obtaining and/or reviewing separately obtained history, performing a medically appropriate examination, counseling and educating the patient/family/caregiver, ordering medications, tests, or procedures, and communicating results to the patient/family/caregiver. CNOV Observed: 10/24/2024 11:40 AM Status: COMPLETED Source: [facility] Office Visit (RHBATH) MARISOL STONE ([id number]) 1960 F Date Time Provider Department 10/24/24 11:40 AM KELLY LOWE RHBERNA During your visit today, we recorded the following information about you: Temperature Pulse Respiration Blood pressure 98 degrees 76/minute 13/minute 163/88 Weight Height 86.1 kg 1.576 m Kelly Lowe PA-C 10/30/2024 11:25 AM Signed [facility] Kelly Lowe [address] [place] [address] Subjective Last OV: 06/08/23 HPI: Marisol Stone is a 64 year old female who presents for follow up of RA. She reports she had been doing well until June. She notes she was told she didn't have RA anymore and didn't need treatment. Pt also didn't want to be on these medications because they mess her up. Since June 2024 she has been having more trouble with her wrists, R arm, shoulders. She also reports neck pain and ankle pain. Her knee replacements were hurting, but not hurting as much since starting prednisone from her PCP. Started at 40 mg x 5 days, then 20 mg x 5 days, now on 10 mg. She notes she feels the difference with the pred taper. Today is her first day on 10 mg pred. Will do this for 5 days then the taper will be complete. She notes she takes Tylenol for her pain, which does not help now. Doesn't take it as much as she used to. She smokes marijuana and uses marijuana gummies, states no one will give her anything for pain. She has side effects to pred - headaches, sweats, insomnia, frequent urination. Before she was on pred she felt stiff in her knees. A lot of stress right now, living alone. Crying all the time. Anxiety of doing things on her own, was living with her daughter for 10 years. She had labs from her PCP done recently. Notes she got a brief call about an abnormal protein and wanted to f/u with her in 6 months. Rheumatologic disease summary: First OV date: 06/02/2018 Diagnosis: RA Serologies: ccp >250, RF 176, FLORA neg Erosions: yes - 2017 Current therapy: pred (taper by PCP) Prior therapy: MTX (d/c due to TKA infection), Inflectra (allergy), Actemra (? Gut perforation), Plaquenil (GI upset) Other: marijuana use, marijuana gummies; CARDIAC STENT (2015 - ) Initial rheumatology visit HPI (06/02/2018 Dr. Su): 58 year old female who presents with rheumatoid arthritis. Patient was diagnosed with RA 2 years ago - MTX gave nausea after one month, Humira every other wek and then very week for 5 months - did not help. She has been on prednisone for 2 years and would like to be off of it completely. Sh is unable to walk when she is of prednisone. 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 She also has BMD, x rays, blood work in apr. She was also presribed SSZ which did not help. Had steroid injection. Leflunamide did not hlp RA involved knees and hands. At present she reports swelling of knees. On prednisone She also has fibromyalgia and reports sharp pain with every step. "tail bone" pain H/o NH in 2016. episodes of dizziness and was on Holter monitor. Poor historian. She will be seeing ortho next week for ankle injury. Family history of autoimmune disease: aunt and cousin with RA Smoking status: Tobacco Use: .5 packs/day Quit 04/22/2016. Types: Cigarettes Interval Review of Systems CONSTITUTIONAL: Recent Weight change: No Fever: No EENT: Dryness in eyes: No Dryness of mouth: No Oral ulcers: No CARDIOVASCULAR: Pain in chest: No RESPIRATORY: Shortness of breath: No Cough: No GASTROINTESTINAL: Nausea: No Vomiting: No Changes in bowel movements: No Heartburn: No MUSCULOSKELETAL: Per HPI INTEGUMENTARY: Rash: No NEUROLOGICAL SYSTEM: Headaches: No All other ROS reviewed, pertinent positives in HPI PAST MEDICAL HISTORY Diagnosis Date Coronary artery disease Fibromyalgia Osteoarthritis PMH - PAST MEDICAL HISTORY OF depression Rheumatoid arthritis (HCC) PAST SURGICAL HISTORY Procedure Laterality Date BIOPSY BREAST 2002 fibroadenoma CC PCI CORONARY INTERVENT LAPS ABD PRTMANDOMENTUM DX W/WO SPEC BR/WA SPX Laparoscopy lysis of adhesions LIG/TRNSXJ FLP TUBE ABDL/VAG APPR UNI/BI Tubal ligation PAST SURGICAL HISTORY OF 08/2011 colonoscopy- bleeding ulcer PAST SURGICAL HISTORY OF Right Total right knee replacement PAST SURGICAL HISTORY OF Left Total left knee replacement UPPER GI History Review: I have reviewed and modified as needed, the following during this visit: Allergies, Past Medical History, Past Surgical History, Past Family History, Past Social History. Physical Exam BP 163/88 Pulse 76 Temp 36.7 ?C (98 ?F) (Temporal) Resp 13 Ht 157.6 cm (5' 2.05") Wt 86.1 kg (189 lb 13.1 oz) SpO2 95% BMI 34.67 kg/m? GENERAL: Well appearing, alert, comfortable, in no acute distress, well-hydrated, well nourished. HEENT: Negative for external ears normal. Canals are clear. Eye Exam normal. External nose normal, no nasal ulcer or throat ulcer. NECK: NECK Supple, no adenopathy NEURO: Motor and sensory exam normal MOTOR: Normal; including tone, gait, stressed gait, power and coordination. SKIN: Negative for alopecia, skin rash, malar rash, skin lesion, skin ulcer, pits, thickening, color changes, telangiectasias, nail changes, nail ridging, nail pitting, onycholysis MUSCULOSKELETAL: Tenderness: RIGHT - shoulder, wrist, 1-3 MCPs, 1st IP, 2-5 PIPs, ankle; LEFT - shoulder, wrist, 4-5 MCPs, 2-5 PIPs, ankle Synovitis: RIGHT - wrist, 2-3 MCPs; LEFT - wrist, 2-3 MCPs Kelly Lowe PA-C physical exam October 24, 2024 Recent Lab Results: PCP labs 10/2024: FLORA neg Albumin 3 Faint band in gamma region suspicious for monoclonal immunoglobulin. This band may represent a benign spike as seen in older people or could be a paraprotein as seen in Multiple Myeloma, Waldenstrom's Macroglobulinemia or Lymphoma. Depending on clinical circumstances, further diagnostic studies may include serum immunofixation or serum free light chain quantitation. CBC: WBC 10.4, RBC 4.12, H/H 11.2/35.8, PLT 657 CRP 83.7 ESR 63 CMP: ALP 82, ALT 9, AST 7, Ca 9.6, Creat 0.66, GFR 115 RF 53 TSH 1.7 Uric acid 4.9 WBC (k/uL) Date Value 11/15/2022 9.69 RBC (m/uL) Date Value 11/15/2022 4.28 Hemoglobin (g/dL) Date Value 11/15/2022 12.3 Hematocrit (%) Date Value 11/15/2022 38.0 Platelet Count (k/uL) Date Value 11/15/2022 406 (H) Creatinine (mg/dL) Date Value 11/15/2022 0.58 Calcium, Total (mg/dL) Date Value 11/15/2022 9.8 Alkaline Phosphatase (U/L) Date Value 11/15/2022 95 AST (U/L) Date Value 11/15/2022 13 ALT (U/L) Date Value 11/15/2022 11 Latest Ref Rng AND Units 03/12/2020 07/27/2022 ESR, WSR WSR 0 - 20 mm/hr 54 45 Latest Ref Rng AND Units 07/27/2022 11/15/2022 CRP CRP <0.9 mg/dL 2.1 1.8 Recent Radiology Results: None Assessment / Plan: (M05.79) Rheumatoid arthritis of multiple sites without organ or system involvement with positive rheumatoid factor (HCC) (primary encounter diagnosis) (Z79.899) High risk medication use (R77.8) Abnormal SPEP The patient presents today for follow up of RA after a 16 month hiatus from follow up. She has synovitis and tenderness as described above. Has not been on Arava, will start this today. Referral to hematology for abnormal SPEP. Repeat labs in 4 weeks after starting Arava to monitor for drug toxicity. Continue pred taper as per PCP directions. Labs ordered for monitoring for medication toxicity. Patient advised to hold any immunosuppressant medication if sick or on antibiotics. Patient advised to contact the clinic with questions. Last rheumatology OV note reviewed. Discussed the above in detail with the patient. All questions were answered. Medications: Arava 10 mg daily Testing: as below Follow up: 6 weeks Pt instructed to contact the clinic with concerns or questions. Office Visit on 10/24/24 COMPLETE BLOOD COUNT AND DIFFERENTIAL COMPREHENSIVE METABOLIC PANEL SEDIMENTATION RATE, WESTERGREN C-REACTIVE PROTEIN CONSULT TO HEMATOLOGY Kelly Lowe PA-C I spent a total of 55 minutes on the date of the service which included preparing to see the patient, [id number] patient care, completing clinical documentation, obtaining and/or reviewing separately obtained history, performing a medically appropriate examination, counseling and educating the patient/family/caregiver, ordering medications, tests, or procedures, and communicating results to the patient/family/caregiver. Referring Provider: SHELLY SU [[id number]] Allergies As of Date: 10/24/2024 Noted Allergy Reaction INFLECTRA (INFLIXIMAB-DYYB) 10/24/2024 2 - Rash MOLD 06/21/2019 14 - Other: See Comments Comments: sneezing/sinus infections POLLEN 02/19/2010 9 - Itching Date Reviewed: 10/24/2024 Reviewed by: Laura Nelson LPN - Fully Assessed Reason for Visit: Joint Pain [238] Primary Visit Diagnosis:Rheumatoid arthritis of multiple sites without organ or system involvement with positive rheumatoid factor (HCC) [M05.79] Other Visit Diagnoses:High risk medication use [Z79.899] Abnormal SPEP [R77.8] Order(s):COMPLETE BLOOD COUNT AND DIFFERENTIAL [SQCBCDIF] Order #: [id number] FUTURE COMPREHENSIVE METABOLIC PANEL [SQCMP] Order #: [id number] FUTURE SEDIMENTATION RATE, WESTERGREN [SQWSR] Order #: [id number] FUTURE C-REACTIVE PROTEIN [SQCRP] Order #: [id number] FUTURE CONSULT TO HEMATOLOGY [9014] Order #: [id number]: 1 FUTURE leflunomide (ARAVA) 10 mg tabletTake 1 tablet by mouth once daily.Disp: 30 tabletRfl: 1 Prescriptions as of 10/30/2024 - Cholecalciferol, Vitamin D3, (VITAMIN D-3) 50 mcg (2,000 unit) cap Take 4,000 Units by mouth once daily. - predniSONE (DELTASONE) 10 mg tablet Take 10 mg by mouth once daily. - MEDICATION, NON-DATABASE Take 2 capsules by mouth once daily. MORINGA - leflunomide (ARAVA) 10 mg tablet Take 1 tablet by mouth once daily. - ergocalciferol 50,000 unit capsule (VITAMIN D2, DRISDOL) TAKE 1 CAPSULE BY MOUTH ONE TIME PER WEEK - OTC NUTRITIONAL SUPPLEMENT Take 1 Cap-Full by mouth once daily. Multi-GI 5 PO one capful daily - mv-mn/folic ac/calcium/vit K1 (WOMEN'S 50 PLUS MULTIVITAMIN ORAL) Take 1 tablet by mouth once daily. - biotin 5,000 mcg subl Dissolve 1 tablet under the tongue once daily. - lisinopril (ZESTRIL) 20 mg tablet Take 20 mg by mouth once daily. - tiZANidine (ZANAFLEX) 4 mg tablet Take 4 mg by mouth every 6 hours as needed. Patient takes 4 mg to 6 mg at HS - acetaminophen 650 mg CR tablet Take 650 mg by mouth two times a day. - aspirin, enteric coated (ASPIRIN, ENTERIC COATED) 81 mg EC tablet Take 81 mg by mouth once daily. - fexofenadine (JAYLEN) 180 mg tablet Take 180 mg by mouth once daily. - omeprazole (PRILOSEC) 20 mg capsule Take 20 mg by mouth once daily. 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 Level of Service: OFFICE/OUTPATIENT ESTABLISHED HIGH MDM 40 MIN [10871] Additional E/M codes: VISIT CPLX INHERENT EANDM ASSOC WITH MED * Follow-up and Disposition History for Encounter Date Provider Department Center 10/24/2024 [id number], [facility] Questionnaire: GABBY ARVIZU YEARLY ADL ASSESSMENT Toileting -> Independent Bathing -> Independent Upper Body Dressing -> Independent Lower Body Dressing -> Independent Grooming/Hygiene -> Independent Self Feeding -> Independent Home Management (laundry/cleaning/chores/simple meal prep) -> Independent Annotated image of Homunculus image last updated by Kelly Lowe PA-C on 10/24/2024 12:39 PM Encounter Status:Closed by KELLY LOWE on 10/30/24 CNPN Observed: 10/12/2024 12:00 AM Status: COMPLETED Source: [facility] Telephone (RHBATH) MARISOL STONE ([id number]) 1960 F Date Time Provider Department 10/12/24 SHELLY SU [facility] During your visit today, we recorded the following information about you: Saba Pulido 10/12/2024 3:00 PM Signed Patient is severely distressed and depressed. She even states she went into a deep depression last month She needs phychiatric help and and she wants it but states her insurance will not cover this treatment in [facility]. She denied saying to her PCP that she had been reaching out to us and that we were not responding. She told me that we have reached out to her several times (Laura and Jen) However, she does not have transportation up to our office from [place] and is to afraid of transportation with a provide a ride situation. Very high anxiety. I did not get her scheduled at this time she wants to check with her daughter for her next day off and she promises she will call Laura at [phone]. I do not want her getting lost in the system since I will not be here. I will bring Laura up to date. Shelly Roman MD 10/15/2024 9:46 AM Signed Laura, Briannas follow up with her on phone in a week Laura Nelson LPN 10/15/2024 11:44 AM Signed Ni Banda (Daughter) FYI Patient scheduled, see below. Kelly- Please see telephone message 10/11/2024. Laura Nelson LPN Provider Department Encounter # Center 10/24/2024 11:40 AM Kelly Lowe PA-C [facility] Provider Department Encounter # Center 02/18/2025 11:40 AM Shelly Su MD [facility] Allergies As of Date: 10/12/2024 Noted Allergy Reaction MOLD 06/21/2019 14 - Other: See Comments Comments: sneezing/sinus infections POLLEN 02/19/2010 9 - Itching Date Reviewed: 11/15/2022 Reviewed by: Laura Nelson LPN - Fully Assessed Reason for Visit: Appointment [186] Prescriptions as of 10/15/2024 - ergocalciferol 50,000 unit capsule (VITAMIN D2, DRISDOL) TAKE 1 CAPSULE BY MOUTH ONE TIME PER WEEK - OTC NUTRITIONAL SUPPLEMENT Take 1 Cap-Full by mouth once daily. Multi-GI 5 PO one capful daily - mv-mn/folic ac/calcium/vit K1 (WOMEN'S 50 PLUS MULTIVITAMIN ORAL) Take 1 tablet by mouth once daily. - biotin 5,000 mcg subl Dissolve 1 tablet under the tongue once daily. - lisinopril (ZESTRIL, PRINIVIL) 10 mg tablet Take 20 mg by mouth once daily. - tiZANidine (ZANAFLEX) 4 mg tablet Take 4 mg by mouth every 6 hours as needed. - Acetaminophen 500 mg cap Take by mouth as needed. - aspirin, enteric coated (ASPIRIN, ENTERIC COATED) 81 mg EC tablet Take 81 mg by mouth once daily. - fexofenadine (JAYLEN) 180 mg tablet Take 180 mg by mouth once daily. - omeprazole (PRILOSEC) 20 mg capsule Take 20 mg by mouth once daily. 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 Telephone (RHBATH) MARISOL STONE ([id number]) 1960 F Date Time Provider Department 10/11/24 SHELLY SU During your visit today, we recorded the following information about you: Shelly Su MD 10/11/2024 4:21 PM Signed Received a call from PCP office. Patient not been seen since 06/27. I was old that she has been calling our office. But I dont see any messages and no my chart mesgs as well. 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 Multi-GI 5 PO one capful daily - mv-mn/folic ac/calcium/vit K1 (WOMEN'S 50 PLUS MULTIVITAMIN ORAL) Take 1 tablet by mouth once daily. - biotin 5,000 mcg subl Dissolve 1 tablet under the tongue once daily. - lisinopril (ZESTRIL, PRINIVIL) 10 mg tablet Take 20 mg by mouth once daily. - tiZANidine (ZANAFLEX) 4 mg tablet Take 4 mg by mouth every 6 hours as needed. - Acetaminophen 500 mg cap Take by mouth as needed. - aspirin, enteric coated (ASPIRIN, ENTERIC COATED) 81 mg EC tablet Take 81 mg by mouth once daily. - fexofenadine (JAYLEN) 180 mg tablet Take 180 mg by mouth once daily. - omeprazole (PRILOSEC) 20 mg capsule Take 20 mg by mouth once daily. 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] 05/12/2016 Family history of ischemic heart disease [Z82.4*05/12/2016 Pulmonary hypertension, secondary ([facility]) [UCJ065*05/12/2016 Chronic obstructive pulmonary disease (HCC) [J4*05/12/2016 High risk medication use [Z79.899] 08/21/2018 RA (rheumatoid arthritis) ([facility]) [M06.9] 09/22/2018 11/16/2022 Rheumatoid arthritis of multiple sites without *06/12/2021 Infective arthritis (HCC) [M00.9] 02/23/2023 Encounter Status:Closed by SHELLY SU on 10/11/24 ALLERGIES DATE TYPE / CODE NAME / CODE REACTION SEVERITY SOURCE 10/24/2024 DRUG INGREDI/[id number] (SNOMED CT) INFLIXIMAB-DYYB RASH [facility] 06/21/2019 DRUG INGREDI/[id number] (SNOMED CT) MOLD OTHER: SEE C [facility] 02/19/2010 Environ/[id number] (SNOMED CT) POLLEN ITCHING Low [facility] ENCOUNTERS ADMIT/DISCHARGE ACCOUNT NUMBER ADMITTING ENCOUNTER CLASS LOC ATION SOURCE 05/08/2025/ 5 [id number] [facility] [place] [facility] 03/13/2025/ 5 [id number] [facility]/27[facility]/ 5 [id number] Ambulatory [facility] 02/27/2025/ 5 [id number] Ambulatory [facility] 02/18/2025/ 5 [id number] [facility] [place] [facility]/ 5 [id number] [facility] [place] [facility] 11/27/2024/ 5 [id number] Ambulatory [facility]:[address] [place] [address] 11/15/2024/ 5 [id number] [facility] [place] [facility] 10/24/2024/ 5 [id number] [facility] [place] [facility] PAYERS ENCOUNTER GUARANTOR PAYER SUBSCRIBER SOURCE 05/08/2025 Primary Insuranc e:[facility] MEDICARE ADVANTAGE OPolicy Number: [id number] Date:0286-78-06Sqfx Name:David Mayes SPENCEDOB: [id number] [place] [address] [facility] 05/08/2025 Secondary Insura nce:[place] Number: [id number] Date:7902-22-93Wzpr Name:Jagdeep Mayes SPENCEDOB: [id number] [place], [place] [address] [place] [address] 03/13/2025 Primary Insuranc e:[employer]VANT[employer] OPolicy Number: [id number] Date:7715-49-72Wahl Name:David Mayes SPENCEDOB: [id number] [place], [place] [address] [place] [address] 03/13/2025 Secondary Insura [place]ce:[place] MED[place] Number: [id number] Date:7224-10-25Snhy Name:Jagdeep Mayes SPENCEDOB: [id number] [place] [address] [facility] 02/27/2025 Primary Insuranc e:[facility] MEDICARE ADVANTAGE OPolicy Number: [id number] Date:3182-16-31Mkvk Name:David Mayes SPENCEDOB: [id number] [place] [address] [facility] 02/27/2025 Secondary Insura nce:[place] MED[place] Number: [id number] Date:9306-55-77Hvye Name:Jagdeep Mayes SPENCEDOB: [id number] [place] [address] [facility] 02/27/2025 Primary Insuranc e:[facility] MEDICARE ADVANTAGE OPolicy Number: [id number] Date:5604-93-48Ncyi Name:David Mayes SPENCEDOB: [id number] [place] [address] [facility] 02/27/2025 Secondary Insura nce:[place] Number: [id number] Date:1989-10-45Wzpp Name:Jagdeep Mayes SPENCEDOB: [id number] [place] [address] [facility] 02/18/2025 Primary Insuranc e:[employer]VANT[employer] HMOPolicy Number: [id number] Date:5755-94-79Wgfo Name:David Mayes SPENCEDOB: [id number] [place] [address] [facility] 02/18/2025 Secondary Insura nce:[place] MED[place] Number: [id number] Date:4524-64-16Wzos Name:Jagdeep Mayes SPENCEDOB: [id number] [place] [address] [facility] 02/18/2025 Primary Insuranc e:[employer] ADVANTAGE HMOPolicy Number: [id number] Date:8797-56-96Tuvx Name:David Mayes SPENCEDOB: [id number] [place] [address] [facility] 02/18/2025 Secondary Insura nce:[place] Number: [id number] Date:6512-80-06Tkxa Name:Jagdeep Mayes SPENCEDOB: [id number] [place] [address] [facility] 11/27/2024 Primary Insuranc e:[employer]VANTAGE HMOPolicy Number: [id number] Date:1164-29-94Hfkg Name:David Mayes SPENCEDOB: [id number] [place] [address] [facility] 11/27/2024 Secondary Insura nce:[place] MED[place] Number: [id number] Date:7447-17-32Mgve Name:Jagdeep Mayes SPENCEDOB: [id number] [place] [address] [facility] 11/15/2024 Primary Insuranc e:[employer] ADVANTAGE HMOPolicy Number: [id number] Date:9491-84-69Aphn Name:David Mayes SPENCEDOB: [id number] [place] [address] [facility] 11/15/2024 Secondary Insura nce:[place] MED[place] Number: [id number] Date:5985-44-68Qgpe Name:Jagdeep Mayes SPENCEDOB: [id number] [address] [facility] [place] [address] [facility] 10/24/2024 Primary Insuranc e:[employer] ADVANTAGE HMOPolicy Number: [id number] Date:7203-17-50Bkfq Name:David Mayes SPENCEDOB: [id number] [place], [place] [address] [place] [address] 10/24/2024 Secondary Insura nce:[place] MED[place] Number: [id number] Date:1097-18-07Bxru Name:Jagdeep Mayes SPENCEDOB: [id number] [place] [address] [facility]
[2025-06-05 08:09] LABS: Calprotectin, Stool 75 ug/g (0-120)
[2025-06-05 15:08] LABS: Pancreatic Elastase, Fecal > 800 (>200)
== END | disposition home or self-care (01) ==
LOC: LABSPEC 10:30
PROVIDERS: PCP Family Medicine; Referring Provider Family Medicine; Visit Provider Family Medicine
DX: R10.9 Unspecified abdominal pain (principal); R19.7 Diarrhea, unspecified
CPT/HCPCS: 82653; 83993; 87177; 87209; 87493